=== PATIENT | female | born 1960 ===

== ENCOUNTER 2017-01-06 02:39 | Inpatient (IN) | payer MEDICARE, OTHER ==
[2017-01-06] MEDS ORDERED: Sodium Chloride 0.9% 1,000 ML IV STA ×4 (02:56→08:51)
[2017-01-06 03:29] LABS: BASO # 0.2 K/uL (0.0-0.2); EOS # 0.1 K/uL (0.0-0.7); EOS % 0.9 % (0.0-4.0); HEMOGLOBIN 10.2 g/dL (12.0-16.0); LYMPH # 2.5 K/uL (1.0-4.3); LYMPH % 15.4 % (20.0-40.0); MEAN CELL VOLUME 92.3 fl (81.0-99.0); MEAN CORPUSCULAR HEMOGLOBIN 30.7 pg (27.0-31.0); MEAN CORPUSCULAR HGB CONC 33.3 g/dL (33.0-37.0); MEAN PLATELET VOLUME 10.4 fl (7.2-11.7); MONO # 1.5 K/uL (0.0-0.8); NEUT # 12.2 K/uL (1.8-7.0); NEUT % 73.7 % (50.0-75.0); RBC 3.31 Mil/uL (3.80-5.20); RED CELL DISTRIBUTION WIDTH 14.4 % (11.5-14.5); WHITE BLOOD COUNT 16.6 K/uL (4.8-10.8)
[2017-01-06 03:37] LABS: ALBUMIN 3.9 g/dL (3.5-5.0); CALCIUM 9.3 mg/dL (8.4-10.2)
[2017-01-06 03:45] LABS: INR 1.1 (0.9-1.2); PARTIAL THROMBOPLASTIN TIME 36.5 Seconds (25.6-37.1); PROTHROMBIN TIME 12.4 Seconds (9.8-13.1)
--- NOTE | 2017-01-06 03:47 | ED PDOC ---
Syncope/Near Syncope/Dizziness Time Seen by Provider: 01/06/17 02:46 Chief Complaint (Nursing): Syncope Chief Complaint (Provider): Syncope History Per: Patient History/Exam Limitations: no limitations Onset/Duration Of Symptoms: Mins (MEDIA AID) Current Symptoms Are (Timing): Still Present Number Of Syncopal Episodes: 2 Seizure Or Post-ictal Symptoms: None Additional History Per: Family (Son) Additional Complaint(s): 56 year old female presents to ED with complaints of syncope and has a past medical history of DM, osteolitis, dyslipidemia, CHF, and HTN. Notes that she was found by her son to have "passed out" in their basement laundry room. Son reports that patient was flat, dazed, and confused. Patient states that she does not recall the event. Son notes similar episode x2 days ago and did not seek medical care for that event. (+) weakness, nausea, vomiting, and poor PO intake. (-) abdominal pain, chest pain, cough, or SOB. PCP: ANIBAL Past Medical History Reviewed: Historical Data, Nursing Documentation, Vital Signs Vital Signs: Last Vital Signs Temp 98.5 F 01/06/17 02:53 Pulse 66 01/06/17 02:53 Resp 16 01/06/17 02:53 BP 77/40 L 01/06/17 02:53 Pulse Ox 99 01/06/17 02:53 - Medical History PMH: Anxiety, Asthma, Back Problems, CHF, Depression, Diabetes (type II), GERD, HTN, Hypercholesterolemia Denies: HIV, Chronic Kidney Disease, Seizures, Sexually Transmitted Disease - Surgical History Surgical History: Appendectomy, Cholecystectomy, ( x 3) - Family History Family History: States: No Known Family Hx - Living Arrangements Living Arrangements: With Family - Social History Current smoker - smoking cessation education provided: No Ex-Smoker (has not smoked in the last 12 months): No Alcohol: None Drugs: Denies - Home Medications Home Medications: Ambulatory Orders Medication Instructions Recorded Pravastatin Sodium [Pravachol] 40 mg PO HS 02/25/16 Canagliflozin [Invokana] 300 mg PO DAILY #0 tablet 05/29/16 Glimepiride [Amaryl] 4 mg PO BID #0 tablet 05/29/16 Oxycodone HCl/Acetaminophen 1 tab PO Q6H PRN #0 tablet 05/29/16 [Percocet 10-325 mg Tablet] Zolpidem [Ambien] 10 mg PO HS PRN #0 tab 05/29/16 DULoxetine [Cymbalta] 60 mg PO HS 01/06/17 Insulin Aspart, Recombinant 40 unit SC TID 01/06/17 [Novolog] Insulin Detemir [Levemir] 80 units SC HS 01/06/17 Lisinopril/Hydrochlorothiazide 1 tab PO DAILY 01/06/17 [Lisinopril-Hctz 20-25 mg Tab] Pregabalin [Lyrica] 100 mg PO TID 01/06/17 Sitagliptin Phos/Metformin HCl 1 tab PO BID 01/06/17 [Janumet Xr 50-1,000 mg Tablet] - Allergies Allergies/Adverse Reactions: Allergies Allergy/AdvReac Type Severity Reaction Status Date / Time vancomycin AdvReac ITCHING Verified 05/22/16 13:09 Review of Systems ROS Statement: Except As Marked, All Systems Reviewed And Found Negative Constitutional: Positive for: Weakness Cardiovascular: Negative for: Chest Pain Respiratory: Negative for: Cough, Shortness of Breath Gastrointestinal: Positive for: Nausea, Vomiting, Other (Poor PO intake). Negative for: Abdominal Pain Neurological: Positive for: Dizziness, Other (Syncope) Physical Exam - Reviewed Nursing Documentation Reviewed: Yes Vital Signs Reviewed: Yes - Physical Exam Appears: Positive for: Non-toxic Head Exam: Positive for: NORMOCEPHALIC. Negative for: ATRAUMATIC (abrasion on left forehead) Skin: Positive for: Warm, Dry, Pallor Eye Exam: Positive for: Normal appearance, EOMI, PERRL ENT: Negative for: Normal ENT Inspection (tacky mucous membranes) Cardiovascular/Chest: Positive for: Regular Rate, Rhythm, Other (Hypotensive). Negative for: Murmur Respiratory: Positive for: Normal Breath Sounds. Negative for: Respiratory Distress Gastrointestinal/Abdominal: Positive for: Normal Exam, Soft. Negative for: Tenderness Back: Positive for: Normal Inspection Extremity: Positive for: Normal ROM. Negative for: Deformity Neurologic/Psych: Positive for: Alert, Oriented. Negative for: Motor/Sensory Deficits - Laboratory Results Result Diagrams: 01/06/17 13:00 01/06/17 13:00 - ECG O2 Sat by Pulse Oximetry: 99 (RA) Pulse Ox Interpretation: Normal - Critical Care Total Time (In Min): 60 Medical Decision Making Medical Decision Makin Initial impression: syncopal event in setting of poor PO intake, nausea, vomiting, and diabetes Initial plan: * EKG * Labs * Lact acid * Trop I * UPreg * PTT/PT * NS IV * BCx * Urine Cx * Accucheck * UA 0307 * CT HEAD 0313 * NS IV 0323 * Zofran Inj 4mg IV * Re-eval 0330 * ED OBS All further documentation will take place in ED OBS section of chart. Scribe Attestation: Documented by Jody Osborne acting as a scribe for Won Nina MD. Scribe Attestation: All medical record entries made by the Scribe were at my direction and personally dictated by me. I have reviewed the chart and agree that the record accurately reflects my personal performance of the history, physical exam, medical decision making, and the department course for this patient. I have also personally directed, reviewed, and agree with the discharge instructions and disposition. ED OBSERVATION Date of observation admission: 01/06/17 Time of observation admission: 03:30 - Observation admission statement Patient is being placed in observation because:: Due to further work up and awaiting CT imaging - Goals of Observation Goals of observation are:: CT results - Progress Note Progress Note: 01/06/17 04:30 Patient resting, vitals stable 01/06/17 05:30 Patient resting, vitals stable 01/06/17 06:01 Labs reviewed: no clinically significant abnormalities besides elevated WBC Patient's blood pressure improved after 2.5L IV fluids; however, still no urinary output. Donis catheter ordered. Patient complaining of lower back pain. * CTA A/P to exclude intra-abdominal or renal pathology 01/06/17 07:[address] Patient signed over to Dr. Bhardwaj pending CT imaging. Disposition - Clinical Impression Clinical Impression: Syncope, UTI (urinary tract infection), Dehydration - Patient ED Disposition Is Patient to be Admitted: Transfer of Care - Disposition Disposition: Transfer of Care Disposition Time: 03:30 Condition: FAIR Patient Signed Over To: Jj Bhardwaj (at 0700) Handoff Comments: Pending CT - Pt Status Changed To: Hospital Disposition Of: Observation - POA Present On Arrival: None
[2017-01-06 03:49] LABS: TROPONIN I 0.025 ng/mL (0.00-0.120)
--- NOTE | 2017-01-06 05:08 | CT ---
EXAM: CT Head Without Intravenous Contrast CLINICAL HISTORY: 56 years old, female; Signs and symptoms; Syncope and collapse TECHNIQUE: Axial computed tomography images of the head/brain without intravenous contrast. This CT exam was performed using one or more of the following dose reduction techniques: automated exposure control, adjustment of the mA and/or kV according to patient size, and/or use of iterative reconstruction technique. Coronal and sagittal reformatted images were created and reviewed. COMPARISON: No relevant prior studies available. FINDINGS: Brain: Unremarkable. No hemorrhage. No significant white matter disease. No edema. Ventricles: Unremarkable. No ventriculomegaly. Bones/joints: Unremarkable. No acute fracture. Soft tissues: Unremarkable. Sinuses: Unremarkable as visualized. No acute sinusitis. Mastoid air cells: Unremarkable as visualized. No mastoid effusion. IMPRESSION: Normal head/brain CT.
[2017-01-06] MEDS ORDERED: Iohexol 240 (50 ml) PO ONE (05:48)
[2017-01-06] MEDS ORDERED: Iohexol 240 (50 ml) ONE (06:03)
[2017-01-06 06:35] LABS: SQUAMOUS EPITHIAL 1 /hpf (0-5); URINE BACTERIA OCC (<OCC); URINE BILIRUBIN NEGATIVE (NEGATIVE); URINE BLOOD SMALL (NEGATIVE); URINE CLARITY CLOUDY (Clear); URINE COLOR YELLOW (YELLOW); URINE GLUCOSE (UA) >=500 mg/dL (Normal); URINE LEUKOCYTE ESTERASE LARGE Leu/uL (Negative); URINE NITRATE NEGATIVE (NEGATIVE); URINE PROTEIN 30 mg/dL (NEGATIVE); URINE UROBILINOGEN 0.2-1.0 mg/dL (0.2-1.0); WBC CLUMPS MANY /hpf
[2017-01-06 06:42] LABS: BARBITURATES, UR NEGATIVE (NEGATIVE); BENZODIAZEPINES, UR NEGATIVE (NEGATIVE); OPIATES, UR POSITIVE (NEGATIVE); PHENCYCLIDINE, UR NEGATIVE (NEGATIVE)
[2017-01-06] MEDS ORDERED: cefTRIAXone (Rocephin) 1 gm Inj ONE (06:55)
--- NOTE | 2017-01-06 07:09 | ED PDOC ---
- Laboratory Results Result Diagrams: 01/13/17 07:00 01/13/17 07:00 - ECG O2 Sat by Pulse Oximetry: 97 - Progress ED Course And Treament: Assumed care from Dr Nina. Pending CT abdomen and final disposition. Medical Decision Making Medical Decision Making: Ct abdomen reviewed: no acute findings Disposition Discussed With : Pavel Willoughby Doctor Will See Patient In The: Hospital Counseled Patient/Family Regarding: Studies Performed, Diagnosis - Clinical Impression Clinical Impression: Syncope, UTI (urinary tract infection), Dehydration - POA Present On Arrival: Poor Glycemic Control, Pressure Ulcer (right foot) - Disposition Disposition: Hospitalized as Observation Patient Disposition Time: 10:17 Condition: FAIR
--- NOTE | 2017-01-06 10:20 | CT ---
PROCEDURE: CT Abdomen and Pelvis without IV contrast. HISTORY: back pain COMPARISON: None available TECHNIQUE: Contiguous axial images of the abdomen and pelvis. Oral contrast was administered. No IV contrast given. Coronal and Sagittal reformats generated and reviewed. Radiation dose: Total exam DLP = 1158.89 mGy-cm. This CT exam was performed using one or more of the following dose reduction techniques: Automated exposure control, adjustment of the mA and/or kV according to patient size, and/or use of iterative reconstruction technique. FINDINGS: There is limited evaluation of the solid organs without the administration of IV contrast. LOWER THORAX: No focal consolidation. No pleural effusion. No pneumothorax. Small gastroesophageal reflux. LIVER: Mild nodular hepatic contour. Hepatomegaly. GALLBLADDER AND BILE DUCTS: Cholecystectomy clips. PANCREAS: Unremarkable unenhanced appearance. SPLEEN: Unremarkable unenhanced appearance. ADRENALS: Unremarkable unenhanced appearance. KIDNEYS AND URETERS: No hydronephrosis or obstructing renal calculus. BLADDER: Donis catheter within the urinary bladder. Focus of air within the decompressed urinary bladder may be related to recent instrumentation. REPRODUCTIVE: Uterus is present. APPENDIX: The appendix is not clearly identified. No secondary signs of acute appendicitis. BOWEL: The stomach is nondistended. The bowel loops appear within normal limits of caliber without evidence of intestinal obstruction. Moderate constipation. PERITONEUM: No significant free fluid. No definite free air. LYMPH NODES: Sub cm retroperitoneal and scattered mesenteric lymph nodes, nonspecific. Bilateral sub cm inguinal lymph nodes, nonspecific. No bulky lymphadenopathy identified. VASCULATURE: Atherosclerotic calcifications of the aorta and branches. No aortic aneurysm. BONES: Minimal degenerative changes including small anterior osteophyte formation. No acute fracture evident. OTHER FINDINGS: None. IMPRESSION: Donis catheter within a decompressed urinary bladder which contains air, presumably due to recent instrumentation. Hepatomegaly. Mildly nodular hepatic contour. Correlate clinically for possibility of cirrhosis. Cholecystectomy. Additional incidental findings as above.
--- NOTE | 2017-01-06 10:52 | RAD ---
HISTORY: weakness COMPARISON: 08/08/2016. FINDINGS: LUNGS: The lungs are well inflated and clear. PLEURA: No significant pleural effusion identified, no pneumothorax apparent. CARDIOVASCULAR: Normal. OSSEOUS STRUCTURES: No significant abnormalities. VISUALIZED UPPER ABDOMEN: Normal. OTHER FINDINGS: None. IMPRESSION: No active pulmonary disease.
[2017-01-06] MEDS ORDERED: Piperacillin/Tazobact 3.375 GM in Sodium Chloride 0.9% 100 ML IVPB STA (11:17)
--- NOTE | 2017-01-06 12:07 | CP.PCM.HP ---
<Tabitha Benavides - Last Filed: 01/07/17 06:29> History of Present Illness - History of Present Illness History of Present Illness: Patient seen and examined at bedside with attending 56F p/w being found by her son "passed out" in their basement laundry room. She denies recalling SOB or palpitations prior to the "fall". As per ED records "son reports that patient was flat, dazed, and confused" but patient does not recall event. Again as per ED note "son notes similar episode x2 days ago and did not seek medical care for that event." Patient does reports associated weakness and fatigue, decreased PO intake with N/V. Otherwise she denies SOB, chest pain/palpitations, diarrhea, abdominal pain. Present on Admission - Present on Admission Any Indicators Present on Admission: Yes History of DVT/PE: No History of Uncontrolled Diabetes: Yes Review of Systems - Review of Systems All systems: reviewed and no additional remarkable complaints except - Constitutional Constitutional: Fatigue, Frequent Falls, Lethargy Past Patient History - Infectious Disease Hx of Infectious Diseases: None - Past Medical History & Family History Past Medical History?: Yes - Past Social History Smoking Status: Light Smoker < 10 Cigarettes Daily - CARDIAC Hx Congestive Heart Failure: Yes Hx Hypercholesterolemia: Yes Hx Hypertension: Yes - PULMONARY Hx Asthma: Yes - NEUROLOGICAL Hx Seizures: No - HEENT Hx HEENT Problems: No - RENAL Hx Chronic Kidney Disease: No - ENDOCRINE/METABOLIC Hx Endocrine Disorders: Yes Hx Diabetes Mellitus Type 2: Yes - HEMATOLOGICAL/ONCOLOGICAL Hx Human Immunodeficiency Virus (HIV): No - INTEGUMENTARY Hx Dermatological Problems: No - MUSCULOSKELETAL/RHEUMATOLOGICAL Hx Musculoskeletal Disorders: Yes - GASTROINTESTINAL Hx Gastrointestinal Disorders: No - GENITOURINARY/GYNECOLOGICAL Hx Sexually Transmitted Disorders: No - PSYCHIATRIC Hx Anxiety: Yes Hx Depression: Yes Hx Substance Use: No - SURGICAL HISTORY Hx Appendectomy: Yes Hx Cholecystectomy: Yes - ANESTHESIA Hx Anesthesia: Yes Hx Anesthesia Reactions: No Hx Malignant Hyperthermia: No Meds Allergies/Adverse Reactions: Allergies Allergy/AdvReac Type Severity Reaction Status Date / Time vancomycin AdvReac ITCHING Verified 05/22/16 13:09 Physical Exam - Constitutional Appears: No Acute Distress, Chronically Ill - Head Exam Head Exam: absent: ATRAUMATIC (abrasion over left eye) - Eye Exam Eye Exam: EOMI, PERRL - ENT Exam ENT Exam: Mucous Membranes Moist - Respiratory Exam Respiratory Exam: Clear to Auscultation Bilateral, NORMAL BREATHING PATTERN. absent: Rales, Wheezes - Cardiovascular Exam Cardiovascular Exam: REGULAR RHYTHM. absent: JVD - GI/Abdominal Exam GI & Abdominal Exam: Normal Bowel Sounds, Soft. absent: Tenderness - Extremities Exam Extremities exam: Positive for: normal capillary refill. Negative for: joint swelling, normal inspection (RIGHT plantar/lateral foot wound with foul odor but no gross erythema), pedal pulses present - Neurological Exam Additional comments: Lethargy - Skin Skin Exam: Dry, Warm Results - Vital Signs Recent Vital Signs: Last Vital Signs Temp 36.4 C 01/06/17 08:44 Pulse 63 01/06/17 11:28 Resp 20 01/06/17 11:28 BP 109/50 L 01/06/17 11:28 Pulse Ox 97 01/06/17 11:19 - Labs Result Diagrams: 01/06/17 13:00 01/06/17 13:00 Assessment & Plan (2) Syncope Assessment and Plan: Multiple falls secondary to neurological vs. cardiac vs. infection/dehydration. - Neurology Consult - Carotid Duplex - Fall precautions Status: Acute (3) UTI (urinary tract infection) Assessment and Plan: - Rocephin 1g, IV, Daily - ID Consult - f/u Urine culture Status: Acute (4) DVT prophylaxis Assessment and Plan: Heparin 5,000U, SC, Q8H Status: Acute (5) Foot ulcer, right Assessment and Plan: Chronic, but foul odor and draining. - Podiatry consult Status: Chronic (6) Diabetes Assessment and Plan: Not well-controlled. - Resume home medications except renal excreted - Lantus - Hypoglycemic Bundle - Accu-checks - MOD CHO Status: Chronic (7) Hypertension Assessment and Plan: Chronic, stable - HOLD nephrotoxic medications - monitor for now Status: Chronic (8) Acute on chronic renal failure Assessment and Plan: Likely multifactorial with dehydration, medication. - Nephrology Consult - Restrict nephrotoxic medications - rpt chemistries Status: Acute <Pavel Willoughby - Last Filed: 01/10/17 13:21> Results - Vital Signs Recent Vital Signs: Last Vital Signs Temp 97.8 F 01/10/17 12:00 Pulse 66 01/10/17 12:00 Resp 18 01/10/17 12:00 BP 123/69 01/10/17 12:00 Pulse Ox 99 01/10/17 12:00 - Labs Result Diagrams: 01/07/17 05:30 01/08/17 06:15 Labs: Laboratory Results - last 24 hr 01/09/17 01/09/17 01/10/17 16:23 21:25 05:43 POC Glucose (mg/dL) 126 H 192 H 154 H 01/10/17 10:47 POC Glucose (mg/dL) 198 H Assessment & Plan - Assessment and Plan (Free Text) Plan: I was present during evaluation and discussed with Dr Benavides re plans of care and treatment. Pavel Willoughby M.D.
[2017-01-06] MEDS ORDERED: Glucagon Recombinant 1 mg Inj IM PRN (12:13)
[2017-01-06] MEDS ORDERED: Dextrose 50% SYRINGE Inj (50 ml) IV PRN (12:13)
--- NOTE | 2017-01-06 12:31 | CP.PCM.CON ---
History of Present Illness - History of Present Illness History of Present Illness: 56 y.o female hx of DM, osteolitis, CHF, HTN was seen in the ED following request for podiatry consult and for multiple episodes of syncope and dehydration. Patient appears lethargy at this time, however is arousable to questioning. She says that she was taken to the ED from her son who brought her in following a fall at home. She says she sustained an abrasion to her head from the fall. Podiatry was consulted for right plantar foot wound. Patient has been seeing Dr. Kaur for continued treatment of chronic right plantar foot wound. Per patient, she saw Dr. Kaur last Thursday for wound care: wound was cleansed, Silvercell, and DSD applied. Patient also states that she was recently prescribed antibiotics, however was told by Dr. Kaur to discontinue to taking antibiotics due to diarrhea. Pt reports little pain and hasn't noticed any drainage/pus from wound. Patient admits to nausea, vomitted yesterday, and diarrhea. Pt denies SOB, CP, or F. Review of Systems - Review of Systems Review of Systems: All systems reviewed and found to be negative except HPI Past Patient History - Infectious Disease Hx of Infectious Diseases: None - Past Medical History & Family History Past Medical History?: Yes - Past Social History Smoking Status: Light Smoker < 10 Cigarettes Daily - CARDIAC Hx Congestive Heart Failure: Yes Hx Hypercholesterolemia: Yes Hx Hypertension: Yes - PULMONARY Hx Asthma: Yes - NEUROLOGICAL Hx Seizures: No - HEENT Hx HEENT Problems: No - RENAL Hx Chronic Kidney Disease: No - ENDOCRINE/METABOLIC Hx Endocrine Disorders: Yes Hx Diabetes Mellitus Type 2: Yes - HEMATOLOGICAL/ONCOLOGICAL Hx Human Immunodeficiency Virus (HIV): No - INTEGUMENTARY Hx Dermatological Problems: No - MUSCULOSKELETAL/RHEUMATOLOGICAL Hx Musculoskeletal Disorders: Yes - GASTROINTESTINAL Hx Gastrointestinal Disorders: No - GENITOURINARY/GYNECOLOGICAL Hx Sexually Transmitted Disorders: No - PSYCHIATRIC Hx Anxiety: Yes Hx Depression: Yes Hx Substance Use: No - SURGICAL HISTORY Hx Appendectomy: Yes Hx Cholecystectomy: Yes - ANESTHESIA Hx Anesthesia: Yes Hx Anesthesia Reactions: No Hx Malignant Hyperthermia: No Meds Allergies/Adverse Reactions: Allergies Allergy/AdvReac Type Severity Reaction Status Date / Time vancomycin AdvReac ITCHING Verified 05/22/16 13:09 - Medications Medications: Current Medications Dextrose (Dextrose 50% Inj) 0 ml IV STAT PRN; Protocol PRN Reason: Hyglycemia Protocol Dextrose (Glutose 15) 0 gm PO ONCE PRN; Protocol PRN Reason: Hypoglycemia Protocol Glucagon (Glucagen Diagnostic Kit) 0 mg IM STAT PRN; Protocol PRN Reason: Hypoglycemia Protocol Heparin Sodium (Porcine) (Heparin) 5,000 units SC Q8 MARII PRN Reason: Protocol Physical Exam - Constitutional Appears: Non-toxic, No Acute Distress, Confused - Extremities Exam Additional comments: Vasc: DP 1/4, PT 1/4 bilaterally, [employer] > 3 seconds, no edema noted Ortho: mild pain elicited upon palpation of periwound Neuro: gross sensation intact bilaterally Derm: open wound located at Right foot plantar lateral mid arch, measuring 3.5 x 2.5 x .4. Wound base (90% granular, 10% fibrotic) with intact hyperkeratotic and slight macerated periwound edges. Mild serous drainage and mild malodor. No purulence, no tunneling, no tracking, or no probing to bone noted. Hyperkeratotic lesion with dried sangious material at sub met 2 Left foot noted. There is no fluctuance, no erythema, or no ascending cellulitis to LLE bilaterally. - Neurological Exam Neurological exam: Altered - Psychiatric Exam Psychiatric exam: Normal Affect, Normal Mood Results - Vital Signs Recent Vital Signs: Last Vital Signs Temp 97.6 F 01/06/17 08:44 Pulse 63 01/06/17 11:28 Resp 20 01/06/17 11:28 BP 109/50 L 01/06/17 11:28 Pulse Ox 97 01/06/17 12:07 - Labs Result Diagrams: 01/06/17 13:00 01/06/17 03:24 Assessment & Plan - Assessment and Plan (Free Text) Assessment: 56 y.o Diabetic female with 1) chronic right foot ulceration (non-infected) and left foot sub met 2 callus secondary to diabetic neuropathy; 2) altered mental status 3) possible UTI Plan: - Patient was seen and evaluated. - Discussed plan with Dr. Kaur. Discussed with ED attending Dr. Bhardwaj and primary team - Charts, labs, and vitals were reviewed: afebrile, WBC is 16.6 - Dressing applied with DSD. - For tomorrow, will dress wound with Silver dressing - Will order Right foot X-rays. - Wound culture cancelled (not indicated at this time per Dr. Kaur) -Pt to be admitted for obsv -Podiatry will continue to follow while she remains inhouse.
[2017-01-06] MEDS ORDERED: Piperacillin/Tazobact 3.375 gm Inj IVPB ONE (12:49)
[2017-01-06 13:37] LABS: HEMOGLOBIN 9.6 g/dL (12.0-16.0); MEAN CELL VOLUME 94.1 fl (81.0-99.0); MEAN CORPUSCULAR HEMOGLOBIN 29.5 pg (27.0-31.0); MEAN CORPUSCULAR HGB CONC 31.3 g/dL (33.0-37.0); MEAN PLATELET VOLUME 10.2 fl (7.2-11.7); RBC 3.25 Mil/uL (3.80-5.20); RED CELL DISTRIBUTION WIDTH 15.3 % (11.5-14.5); WHITE BLOOD COUNT 11.4 K/uL (4.8-10.8)
[2017-01-06 13:38] LABS: ALB/GLOB RATIO 0.9 (1.0-2.1); ALBUMIN 3.3 g/dL (3.5-5.0); ALT/SGPT 43 U/L (9-52); AST/SGOT 24 U/L (14-36); BLOOD UREA NITROGEN 60 mg/dl (7-17); CALCIUM 8.3 mg/dL (8.4-10.2); GFR AFRICAN-AMERICAN 29; GFR NON-AFRICAN AMERICAN 24
--- NOTE | 2017-01-06 15:37 | US ---
PROCEDURE: Duplex ultrasound of the carotid and vertebral arteries. HISTORY: syncope COMPARISON: None available. TECHNIQUE: Grayscale and duplex Doppler evaluation of the cervical carotid and vertebral arteries were performed. The common carotid, carotid bifurcations and cervical ICA and proximal ECA were evaluated. The vertebral arteries were evaluated for gross patency and direction. FINDINGS: There are extensive calcified atherosclerotic plaques in the common carotid, external and internal carotid arteries. RIGHT CAROTID ARTERIES: Common Carotid Artery: Normal. Maximal flow velocity of 8.3 cm/s. Carotid Bifurcation: Normal. Internal Carotid Artery:Markedly increased peak systolic velocity. Maximal flow velocity of 217.6 cm/s. External Carotid Artery (proximal branches): Moderate increased velocity. Maximal flow velocity of 158.6 cm/s. ICA/CCA Ratio: Increased and measures 2.8 LEFT CAROTID ARTERIES: Common Carotid Artery: Normal. Maximal flow velocity of 77.5 cm/s. Carotid Bifurcation: Normal. Internal Carotid Artery:Markedly increased peak systolic velocity. Maximal flow velocity of 249.4 cm/s. External Carotid Artery (proximal branches): Moderate increased peak systolic velocity. Maximal flow velocity of 174.7 cm/s. ICA/CCA Ratio: Increased and measures 3.2 VERTEBRAL ARTERIES: Right Vertebral Artery: Patent. Antegrade flow. Left Vertebral Artery: Patent. Antegrade flow. OTHER FINDINGS: None. IMPRESSION: Hemodynamically significant stenosis in both internal carotid arteries, severe on right and critical on left. Patent vertebral arteries with antegrade flow.
[2017-01-06] MEDS ORDERED: Piperacillin/Tazobact 3.375 GM in Sodium Chloride 0.9% 100 ML IVPB SCH (16:00)
--- NOTE | 2017-01-06 17:34 | CARD ---
APPROVED REPORT EKG Measurement Heart [id number] <Conclusion> Normal sinus rhythm Cannot rule out Anterior infarct, age undetermined Abnormal ECG
--- NOTE | 2017-01-06 21:44 | CON ---
DATE: 01/06/2017 HISTORY OF PRESENT ILLNESS: The patient is a 56-year-old female with history of diabetes, osteomyelitis, congestive heart failure and HTN, who was admitted via the ER. The patient has a long history of diabetic peripheral vascular disease and came to the ER for multiple episodes of syncope and dehydration. She was lethargic when she came to the ER. Brought to the ER by her family after having a fall at home. Also had an abrasion on her head. The patient is being followed by Dr. Kaur for right plantar foot wound and treatment of chronic diabetic foot infections and is being seen in wound care. There has not been any drainage or pus from the wound. The patient is being seen in ID consult because of the diabetic foot disease and also for possible UTI. The patient has a past history as noted above and also of CHF, hypercholesterolemia , hypertension, asthma and diabetes mellitus. She has been treated for also osteomyelitis in the past. ALLERGIES: The patient also is ALLERGIC TO VANCOMYCIN. CT scan of abdomen and pelvis shows a Donis catheter with decompressed urinary bladder which contains air, presumably due to recent instrumentation, hepatomegaly and cholecystectomy. Micro, nothing is pending. She is noted to have in the past cultures of the foot Enterobacter cloacae and corynebacterium and also Enterococcus faecalis. Her creatinine is 2.7 and 2.1. Her GFR was 18 and 24. Lactic acid was 1.4, alkaline phosphatase is elevated at 234, possibly from bone destruction. Urine shows bacteria, hyaline casts and many WBC clumps. PHYSICAL EXAMINATION: GENERAL: She is alert and cooperative. HEENT: Essentially within normal limits except for an abrasion on her left forehead from a fall. HEART: Regular sinus rhythm. LUNGS: Decreased breath sounds. ABDOMEN: Soft with positive bowel sounds. EXTREMITIES: Open wound located at the plantar area of the right foot. Wound base is granular 90%, as per podiatry note, and there are slightly macerated periwound edges. There is minimal serous drainage. DIAGNOSES: At the present time are near syncopal episode, diabetes, hypertension , diabetic neuropathy with diabetic related infection of the lower extremities, possible urinary tract infection. PLAN: Continue with Zosyn in an adjusted dose and also giving ceftriaxone 1 gram q. 24. Will await cultures prior to making any further decision for antibiotic treatment. Chiki Verde MD cc: [id number] TT: 01/06/2017 21:43:24 Confirmation # [id number] Dictation # [id number] MTDD
[2017-01-06] MEDS ORDERED: Insulin Detemir 100 Units/ml Inj SC SCH (22:00)
[2017-01-07] MEDS: Pravastatin Sodium 40 MG TAB PO SCH ×2 (00:42→21:22)
[2017-01-07] MEDS ORDERED: Patient's Own Med (Oxycodone Hcl/Acetaminophen [Percocet 10-325 Mg Tablet] 1 TAB) PO PRN (00:55)
[2017-01-07] MEDS ORDERED: Oxycodone/Acetaminophen 5/325 mg Tab PO PRN (01:48)
[2017-01-07] MEDS: Insulin Lispro (humaLOG) 100 Units/ml Inj SC SCH ×5 (06:37→21:35)
[2017-01-07 07:20] LABS: BASO % 0.5 % (0.0-2.0); EOS # 0.1 K/uL (0.0-0.7); EOS % 1.2 % (0.0-4.0); HEMOGLOBIN 9.8 g/dL (12.0-16.0); LYMPH # 1.4 K/uL (1.0-4.3); LYMPH % 16.3 % (20.0-40.0); MEAN CELL VOLUME 92.5 fl (81.0-99.0); MEAN CORPUSCULAR HEMOGLOBIN 30.8 pg (27.0-31.0); MEAN CORPUSCULAR HGB CONC 33.3 g/dL (33.0-37.0); MEAN PLATELET VOLUME 10.5 fl (7.2-11.7); MONO # 0.7 K/uL (0.0-0.8); MONO % 8.8 % (0.0-10.0); NEUT # 6.1 K/uL (1.8-7.0); NEUT % 73.2 % (50.0-75.0); NRBC % 0.1 % (0.0-0.0); RBC 3.2 Mil/uL (3.80-5.20); RED CELL DISTRIBUTION WIDTH 14.7 % (11.5-14.5); WHITE BLOOD COUNT 8.3 K/uL (4.8-10.8)
[2017-01-07 07:37] LABS: ALB/GLOB RATIO 0.8 (1.0-2.1); ALBUMIN 3.3 g/dL (3.5-5.0); CALCIUM 8.5 mg/dL (8.4-10.2)
--- NOTE | 2017-01-07 07:46 | CP.PCM.PN ---
Subjective - Date & Time of Evaluation Date of Evaluation: 01/07/17 Time of Evaluation: 08:15 - Subjective Subjective: 56 y.o female hx of DM, osteomyelitis, CHF, HTN was seen and evaluated at bedside with attending Dr. Kaur for chronic right plantar foot wound and left foot sub 2 callus. She is seen comfortably at bedside. She is more aroused and talkative today. Patient states that she is in some pain to the right foot today. She denies n/v/sob/cp/chills or f. She denies any pedal complaints other time. Objective - Vital Signs/Intake and Output Vital Signs (last 24 hours): Temp Pulse Resp BP Pulse Ox 100.1 F H 73 18 107/56 L 98 01/07/17 05:00 01/07/17 05:00 01/07/17 05:00 01/07/17 05:00 01/07/17 05:00 - Medications Medications: Current Medications Dextrose (Dextrose 50% Inj) 0 ml IV STAT PRN; Protocol PRN Reason: Hyglycemia Protocol Dextrose (Glutose 15) 0 gm PO ONCE PRN; Protocol PRN Reason: Hypoglycemia Protocol Duloxetine HCl (Cymbalta) 60 mg PO HS [facility] Last Admin: 01/07/17 00:42 Dose: 60 mg Glipizide (Glucotrol Xl) 10 mg PO BID [facility] Glucagon (Glucagen Diagnostic Kit) 0 mg IM STAT PRN; Protocol PRN Reason: Hypoglycemia Protocol Heparin Sodium (Porcine) (Heparin) 5,000 units SC Q8 [facility] PRN Reason: Protocol Last Admin: 01/07/17 01:59 Dose: 5,000 units Home Med (Canagliflozin [Invokana]) 300 mg PO DAILY [facility] Hydrochlorothiazide (Hydrodiuril) 25 mg PO DAILY [facility] Ceftriaxone Sodium 1 gm/ (Sodium Chloride) 100 mls @ 100 mls/hr IVPB DAILY [facility] Insulin Detemir (Levemir) 80 units SC HS [facility] Insulin Human Lispro (Humalog) 0 units SC ACHS [facility] PRN Reason: Protocol Last Admin: 01/07/17 06:37 Dose: 2 units Lisinopril (Zestril) 20 mg PO DAILY [facility] Metformin HCl (Glucophage) 1,000 mg PO BID [facility] Oxycodone/Acetaminophen (Percocet 5/325 Mg Tab) 1 tab PO Q6 PRN PRN Reason: Pain, severe (8-10) Stop: 01/10/17 01:49 Last Admin: 01/07/17 01:58 Dose: 1 tab Pravastatin Sodium (Pravachol) 40 mg PO HS [facility] Last Admin: 01/07/17 00:42 Dose: 40 mg Pregabalin (Lyrica) 100 mg PO TID [facility] Sitagliptin Phosphate (Januvia) 25 mg PO DAILY [facility] Zolpidem Tartrate (Ambien) 5 mg PO HS PRN PRN Reason: Insomnia - Labs Labs: 01/06/17 13:00 01/07/17 05:30 PT 12.4 Seconds (9.8-13.1) 01/06/17 03:24 INR 1.1 (0.9-1.2) 01/06/17 03:24 APTT 36.5 Seconds (25.6-37.1) 01/06/17 03:24 - Constitutional Appears: Well, Non-toxic, No Acute Distress - Extremities Exam Additional comments: Vasc: DP 1/4, PT 1/4 bilaterally, LEASE ATTENDANT > 3 seconds, no edema noted bilaterally, temperature gradient is WNL, no peripheral edema noted bilaterally Ortho: mild pain elicited upon palpation of periwound, no pain elicited upon palpation of the left plantar sub met 2 callus Neuro: gross sensation intact bilaterally Derm: Right foot open plantar wound measures 3.5 x 2.5 x .4. Wound base is 90% granular and 10% fibrotic. The wound border is a mixture of hyperkeratotic and maceration but intact. Wound exhibit no clinical signs of infection: no purulence, no tunneling, no tracking, no fluctuance, no PTB, no erythema. There is mild drainage of serous noted. There is no cellulitis noted. - Neurological Exam Neurological Exam: Alert, Awake, Oriented x3 - Psychiatric Exam Psychiatric exam: Normal Affect, Normal Mood Assessment and Plan - Assessment and Plan (Free Text) Assessment: 56 y.o Diabetic female with 1) chronic right foot ulceration (non-infected) and left foot sub met 2 callus secondary to diabetic neuropathy; 2) UTI Plan: - Patient was seen and evaluated with attending Dr. Kaur present - Charts, labs, and vitals were reviewed: afebrile, WBC is 8.3 today - Dressing applied with xeroform, ABD, and kerlix. - Will order silver dressing to be applied tomorrow - Continue to monitor left sub met 2 callus. - PWB to right foot - Still pending Right foot X-rays. - Podiatry will continue to follow while she remains inhouse
[2017-01-07] MEDS ORDERED: GlipiZIDE 10 mg SR Tab PO SCH (09:00)
[2017-01-07] MEDS ORDERED: Insulin Lispro (humaLOG) 100 Units/ml Inj SC SCH (09:00)
--- NOTE | 2017-01-07 09:47 | CP.PCM.PN ---
Subjective - Date & Time of Evaluation Date of Evaluation: 01/07/17 Time of Evaluation: 09:45 - Subjective Subjective: This patient who is 56 years old I was called to see her for abnormal kidney function. Patient was admitted because she passed out apparently and brought to the emergency room for further evaluation. Patient has history of chronic kidney disease she has been seen in the past in my office for abnormal kidney function. is diabetic hypertensive hyperlipidemia also she has a right foot ulcer she has been follow-up by podiatry as well. Objective - Vital Signs/Intake and Output Vital Signs (last 24 hours): Temp Pulse Resp BP Pulse Ox 98.8 F 66 18 112/64 97 01/07/17 07:56 01/07/17 07:56 01/07/17 07:56 01/07/17 07:56 01/07/17 07:56 Intake and Output: 01/07/17 01/07/17 06:59 18:59 Intake Total 600 Output Total 4800 Balance -4200 - Medications Medications: Current Medications Dextrose (Dextrose 50% Inj) 0 ml IV STAT PRN; Protocol PRN Reason: Hyglycemia Protocol Dextrose (Glutose 15) 0 gm PO ONCE PRN; Protocol PRN Reason: Hypoglycemia Protocol Duloxetine HCl (Cymbalta) 60 mg PO HS [facility] Last Admin: 01/07/17 00:42 Dose: 60 mg Glipizide (Glucotrol Xl) 10 mg PO BID [facility] Glucagon (Glucagen Diagnostic Kit) 0 mg IM STAT PRN; Protocol PRN Reason: Hypoglycemia Protocol Heparin Sodium (Porcine) (Heparin) 5,000 units SC Q8 [facility] PRN Reason: Protocol Last Admin: 01/07/17 09:20 Dose: 5,000 units Home Med (Canagliflozin [Invokana]) 300 mg PO DAILY [facility] Hydrochlorothiazide (Hydrodiuril) 25 mg PO DAILY [facility] Ceftriaxone Sodium 1 gm/ (Sodium Chloride) 100 mls @ 100 mls/hr IVPB DAILY [facility] Last Admin: 01/07/17 09:20 Dose: 100 mls/hr Insulin Detemir (Levemir) 80 units SC HS [facility] Insulin Human Lispro (Humalog) 0 units SC ACHS [facility] PRN Reason: Protocol Last Admin: 01/07/17 06:37 Dose: 2 units Lisinopril (Zestril) 20 mg PO DAILY [facility] Metformin HCl (Glucophage) 1,000 mg PO BID [facility] Oxycodone/Acetaminophen (Percocet 5/325 Mg Tab) 1 tab PO Q6 PRN PRN Reason: Pain, severe (8-10) Stop: 01/10/17 01:49 Last Admin: 01/07/17 01:58 Dose: 1 tab Pravastatin Sodium (Pravachol) 40 mg PO HS [facility] Last Admin: 01/07/17 00:42 Dose: 40 mg Pregabalin (Lyrica) 100 mg PO TID [facility] Last Admin: 01/07/17 09:24 Dose: 100 mg Sitagliptin Phosphate (Januvia) 25 mg PO DAILY [facility] Zolpidem Tartrate (Ambien) 5 mg PO HS PRN PRN Reason: Insomnia - Labs Labs: 01/07/17 05:30 01/07/17 05:30 PT 12.4 Seconds (9.8-13.1) 01/06/17 03:24 INR 1.1 (0.9-1.2) 01/06/17 03:24 APTT 36.5 Seconds (25.6-37.1) 01/06/17 03:24 - Constitutional Appears: No Acute Distress - ENT Exam ENT Exam: Mucous Membranes Moist - Respiratory Exam Respiratory Exam: absent: Chest Wall Tenderness - Cardiovascular Exam Cardiovascular Exam: REGULAR RHYTHM. absent: Rubs - Extremities Exam Extremities Exam: absent: Calf Tenderness - Back Exam Back Exam: absent: CVA tenderness (L), CVA tenderness (R) - Neurological Exam Neurological Exam: Alert Assessment and Plan (1) Acute on chronic renal failure Assessment & Plan: Patient appears to have acute kidney injury superimposed on chronic kidney disease perhaps. Serum creatinine improving kidney function improving Most likely related to dehydration. Continue monitoring Status: Acute
--- NOTE | 2017-01-07 13:56 | PQF GENQUE ---
Dr. Willoughby, Please clarify the stage of the chronic kidney disease: Stage 1 Stage 2 (mild) Stage 3 (moderate) Stage 4 (severe) Stage 5 Other (please specify) Unable to determine Unknown H and P: Acute on chronic renal failure Assessment and Plan: Likely multifactorial with dehydration, medication. - Nephrology Consult - Restrict nephrotoxic medications - rpt chemistries Renal note: Patient appears to have Acute Kidney Injury superimposed on Chronic Kidney Disease perhaps: most likely related to dehydration Est GFR: (Af Amer/Non-Af Amer): ->->51/42 IVF's This form is a permanent part of the medical record Clarification of your documentation is requested to better reflect the severity of illness and intensity of treatment of your patient. Indicators present [] Specify: [] [] Specify: [] [] Specify: [] [] Specify: [] Location in the medical record that reflects the above clinical findings: [] Treatment Provided: [] PHYSICIAN'S RESPONSE Based on your medical judgment of the clinical indicators outlined above please clarify the following: [] Practitioner response [] If unable to determine, please check the box, sign and date. Present On Admission (POA) Indicator: [] Present at the time of admission [] Not present at the time of admission [] Clinically Undetermined In responding to this query, please exercise your independent professional judgment. The fact that a question is asked does not imply that any particular answer is desired or expected. Thank you for your clarification on this documentation. If you have any questions please call. * Thank you, Sherry Betts RN BSN ext. #[phone] MTDD
--- NOTE | 2017-01-07 14:33 | CON ---
DATE: 01/07/2017 CHIEF COMPLAINT: History of falls. HISTORY OF PRESENT ILLNESS: This is a 56-year-old woman with history of type 2 diabetes mellitus, un controlled; is a smoker, smoking less than 10 cigarettes per day; hypertension, asthma; history of de pression/anxiety, on Cymbalta; history of hypercholesterolemia, hypertension, CHF, [facility] apparently, according to son, had passed out at the basement in the laundry room. The patient denied any confusional episodes or any palpitations prior to the event. She has generalized weakness, fatigue, and has been drinking and eating very less and has been having some nausea and oc casional vomiting. No diarrhea, no abdominal pain. Her CT head showed no acute intracranial abnorma lity. No seizure-like episodes in the past. She had a carotid Doppler which showed hemodynamic sten osis in both internal carotid arteries, severe on the right and critical on the left. She is an acti ve smoker. She is not on any antiplatelet medications. She does have evidence of diabetic periphera l neuropathy on examination and is currently in acute on chronic renal failure likely secondary to de hydration. She is moving all extremities and following commands. PAST MEDICAL HISTORY: CHF, hypertension; diabetes, uncontrolled; chronic kidney disease, dyslipidemi a, asthma, CHF. Also has a past medical history of depression and anxiety. FAMILY HISTORY: Noncontributory. ALLERGIES: ALLERGIC TO VANCOMYCIN. REVIEW OF SYSTEMS: A 14-point review of systems is negative except per the HPI. SOCIAL HISTORY: She smokes less than 10 cigarettes per day, occasional ETOH use. No illicit drug us e. FAMILY HISTORY: Noncontributory. PHYSICAL EXAMINATION: VITAL SIGNS: Temperature afebrile, pulse rate 60, blood pressure 109/50, respiratory rate of 20, oxy gen saturation 97% via room air. GENERAL: The patient is sitting up in bed in no acute distress. HEENT: Atraumatic, normocephalic. PERRLA. Extraocular muscles are intact. NECK: Supple, no JVD, no adenopathy noted. LUNGS: Clear to auscultation. No adventitious sounds. HEART: S1, S2, normal rate and rhythm. No murmurs, rubs, or gallops. ABDOMEN: Soft, nontender, nondistended. Bowel sounds present. EXTREMITIES: No clubbing, no cyanosis. Peripheral pulses 2+ felt bilaterally. Right foot is olson ged up due to plantar lateral foot ulcer. NEUROLOGIC: The patient is alert, oriented to person, place, month and year. Speech is fluent witho ut any errors. Cranial nerves II-XII are intact. MOTOR: Moves all extremities equally. Tone is normal. SENSORY: Decreased light touch and pinprick up to the calves bilaterally. Decreased vibration of th e toes and knees. COORDINATION: [id number] is intact. GAIT: Deferred for now. LABORATORIES: Sodium is 134, potassium 5, chloride 104, carbon dioxide 21, BUN of 40, creatinine 1.3 . Random glucose 168. ASSESSMENT AND PLAN: This is a 56-year-old woman with history of congestive heart failure, hypertens ion, dyslipidemia, history of asthma, history of uncontrolled diabetes, is a positive smoker, who had had a syncopal episode and was found to be dehydrated and acute on chronic kidney injury. Carotid D oppler showed hemodynamic stenosis both in the internal carotids, severe on the right and critical on the left. She is not on any antiplatelet drugs. She was also dehydrated and had transient drop in her systolic and diastolic blood pressures. Overall, her syncopal event is likely multifactorial rel ated secondary to a vasovagal event from underlying acute on chronic kidney injury from dehydration i n addition to transient cerebral hypoperfusion to the brain from low systolic and diastolic blood pre ssures and carotid artery disease which is evident on carotid Doppler. At this time, her repeated fa lls and poor balance is secondary to diabetic peripheral neuropathy of uncontrolled diabetes. At thi s time, recommend: 1. A vascular consult for carotid artery occlusion disease, and since the patient has acute and communicable disease specialist deb kidney injury cannot get a CT angio with contrast due to her elevated BUN and creatinine so, ther efore, do an MRA of the neck to assess for further degree of carotid stenosis. 2. Get a vascular consult about carotid stenosis. 3. Recommend aspirin 81, Plavix 75 mg and a statin of 40 mg (such as atorvastatin) for stroke preven tion and carotid artery disease. 4. Continue with Cymbalta for neuropathic pain, depression and anxiety of 60 mg. 5. Continue with Lyrica 100 mg p.o. t.i.d. for neuropathic pain relief for underlying diabetic perip heral neuropathy. 6. Will probably need physical therapy evaluation for gait imbalance, probably some subacute rehab. 7. Continue with hydration given that she was dehydrated and poor p.o. intake, and continue with buck patel present medical management. Thank you for this consult. Follow up with vascular's recommendations. Continue with conservative m edical management at this point with aspirin, Plavix and statin for carotid artery disease. Layo Bella MD cc: [id number] TT: 01/07/2017 14:33:17 Confirmation # [id number] Dictation # [id number]
--- NOTE | 2017-01-07 15:29 | CP.PCM.CON ---
<Jenny Mckeon - Last Filed: 01/07/17 16:56> History of Present Illness - History of Present Illness History of Present Illness: Vascular surgery progress note for Dr. Kelly Consulted for: carotid artery stenosis Patient is a 56 year old female with PMH of DM type 2, Asthma, and anxiety with PSH of appendectomy and cholecystectomy who presented to the ER 2 days ago after being found down by son. Patien does not remember any of the time surrounding the LOC and was confused afterwards. Patient also reports a previous episode of "passing out" 2 days earlier when she lost consciousness and hit her head on the freezer. She felt fine afterward and did not seek medical treatment. Patient denies any vertigo, light headedness, palpitations, tachycardia, chest pain, SOB, focal weakness, slurring of speech, vision changes , fevers, chills, nausea, vomiting. Patient does report some poor appetite and poor PO intake. Patient underwent a carotid ultrasound which showed critical stenosis of the L ICA and severe stenosis of the R ICA. MRA of the neck is pending. PMH: DM type 2, anxiety PSH: appendectomy, cholecystectomy All: Vancomycin FMH: Father: stomach cancer. No family history of heart disease, CVA, or carotid artery stenosis. Social: Lives with son. Tobacco: 1ppd for >30 years. ETOH: occasional, denies illicit drugs Review of Systems - Review of Systems All systems: reviewed and no additional remarkable complaints except (as per HPI ) - Constitutional Constitutional: Fatigue. absent: Chills, Fever, Weakness - EENT Eyes: absent: Change in Vision, Loss of Vision - Cardiovascular Cardiovascular: absent: Chest Pain at Rest, Lightheadedness, Palpitations - Respiratory Respiratory: absent: Cough, Dyspnea, Wheezing - Gastrointestinal Gastrointestinal: absent: Abdominal Pain, Hematochezia, Melena, Nausea, Vomiting - Genitourinary Genitourinary: absent: Difficulty Urinating, Dysuria, Flank Pain, Hematuria - Musculoskeletal Musculoskeletal: Numbness (chronic feet BL), Tingling (hands, BL ). absent: Back Pain - Integumentary Integumentary: Non-Healing Lesions (lower extremities BL) - Neurological Neurological: Headaches (ocassional L sided headaches, no aura or photophobia). absent: Focal Weakness, Lack of Coordination, Loss of Vision, Memory Loss - Psychiatric Psychiatric: Anxiety - Endocrine Endocrine: Fatigue. absent: Palpitations Past Patient History - Infectious Disease Hx of Infectious Diseases: None - Past Medical History & Family History Past Medical History?: Yes Past Family History: Reviewed and not pertinent - Past Social History Smoking Status: Heavy Smoker > 10 Cigarettes Daily Alcohol: Occasional Drugs: Denies Home Situation {Lives}: With Family - CARDIAC Hx Congestive Heart Failure: Yes Hx Hypercholesterolemia: Yes Hx Hypertension: Yes - NEUROLOGICAL Hx Seizures: No - HEENT Hx HEENT Problems: No - RENAL Hx Chronic Kidney Disease: No - ENDOCRINE/METABOLIC Hx Endocrine Disorders: Yes Hx Diabetes Mellitus Type 2: Yes - HEMATOLOGICAL/ONCOLOGICAL Hx Human Immunodeficiency Virus (HIV): No - INTEGUMENTARY Hx Dermatological Problems: No - MUSCULOSKELETAL/RHEUMATOLOGICAL Hx Musculoskeletal Disorders: Yes - GASTROINTESTINAL Hx Gastrointestinal Disorders: No - GENITOURINARY/GYNECOLOGICAL Hx Sexually Transmitted Disorders: No - PSYCHIATRIC Hx Anxiety: Yes Hx Depression: Yes Hx Substance Use: No - SURGICAL HISTORY Hx Appendectomy: Yes Hx Cholecystectomy: Yes - ANESTHESIA Hx Anesthesia: Yes Hx Anesthesia Reactions: No Hx Malignant Hyperthermia: No Meds Allergies/Adverse Reactions: Allergies Allergy/AdvReac Type Severity Reaction Status Date / Time vancomycin AdvReac ITCHING Verified 05/22/16 13:09 - Medications Medications: Current Medications Dextrose (Dextrose 50% Inj) 0 ml IV STAT PRN; Protocol PRN Reason: Hyglycemia Protocol Dextrose (Glutose 15) 0 gm PO ONCE PRN; Protocol PRN Reason: Hypoglycemia Protocol Duloxetine HCl (Cymbalta) 60 mg PO HS [facility] Last Admin: 01/07/17 00:42 Dose: 60 mg Glucagon (Glucagen Diagnostic Kit) 0 mg IM STAT PRN; Protocol PRN Reason: Hypoglycemia Protocol Heparin Sodium (Porcine) (Heparin) 5,000 units SC Q8 [facility] PRN Reason: Protocol Last Admin: 01/07/17 09:20 Dose: 5,000 units Hydrochlorothiazide (Hydrodiuril) 25 mg PO DAILY [facility] Ceftriaxone Sodium 1 gm/ (Sodium Chloride) 100 mls @ 100 mls/hr IVPB DAILY [facility] Last Admin: 01/07/17 09:20 Dose: 100 mls/hr Insulin Detemir (Levemir) 30 units SC HS [facility] Insulin Human Lispro (Humalog) 12 units SC AC [facility] Insulin Human Lispro (Humalog) 0 units SC ACHS [facility] PRN Reason: Protocol Lisinopril (Zestril) 20 mg PO DAILY [facility] Oxycodone/Acetaminophen (Percocet 5/325 Mg Tab) 1 tab PO Q6 PRN PRN Reason: Pain, severe (8-10) Stop: 01/10/17 01:49 Last Admin: 01/07/17 01:58 Dose: 1 tab Pravastatin Sodium (Pravachol) 40 mg PO HS [facility] Last Admin: 01/07/17 00:42 Dose: 40 mg Pregabalin (Lyrica) 100 mg PO TID [facility] Last Admin: 01/07/17 12:59 Dose: 100 mg Zolpidem Tartrate (Ambien) 5 mg PO HS PRN PRN Reason: Insomnia Physical Exam - Constitutional Appears: Well, Non-toxic, No Acute Distress - Head Exam Head Exam: ATRAUMATIC, NORMOCEPHALIC - Eye Exam Eye Exam: EOMI, Normal appearance, PERRL. absent: Conjunctival injection, Scleral icterus Pupil Exam: NORMAL ACCOMODATION - ENT Exam ENT Exam: Mucous Membranes Moist, Normal Oropharynx - Respiratory Exam Respiratory Exam: Clear to Auscultation Bilateral, NORMAL BREATHING PATTERN. absent: Accessory Muscle Use, Respiratory Distress - Cardiovascular Exam Cardiovascular Exam: RRR, +S1, +S2. absent: Diastolic murmur, Systolic Murmur Additional comments: No carotid bruit BL - GI/Abdominal Exam GI & Abdominal Exam: Soft. absent: Distended, Tenderness - Extremities Exam Extremities exam: Negative for: calf tenderness, pedal edema Additional comments: Legs with dressing c/d/i - Neurological Exam Neurological exam: Alert, CN II-XII Intact, Oriented x3 Additional comments: Motor sensory intact - Psychiatric Exam Psychiatric exam: Normal Affect, Normal Mood - Skin Skin Exam: Dry, Normal Color, Warm Results - Vital Signs Recent Vital Signs: Last Vital Signs Temp 98.2 F 01/07/17 12:31 Pulse 67 01/07/17 12:31 Resp 18 01/07/17 12:31 BP 112/51 L 01/07/17 12:31 Pulse Ox 97 01/07/17 12:31 - Labs Result Diagrams: 01/07/17 05:30 01/07/17 05:30 Labs: Laboratory Results - last 24 hr 01/07/17 01/07/17 01/07/17 05:26 05:30 05:30 WBC 8.3 RBC 3.20 L Hgb 9.8 L Hct 29.6 L MCV 92.5 MCH 30.8 MCHC 33.3 RDW 14.7 H Plt Count 175 MPV 10.5 Neut % (Auto) 73.2 Lymph % (Auto) 16.3 L [place] % (Auto) 8.8 Eos % (Auto) 1.2 Baso % (Auto) 0.5 Neut # 6.1 Lymph # 1.4 [place] # 0.7 Eos # 0.1 Baso # 0.0 Sodium 134 Potassium 5.0 Chloride 104 Carbon Dioxide 21 L Anion Gap 14 BUN 40 H Creatinine 1.3 H Est GFR ( Amer) 51 Est GFR (Non-Af Amer) 42 POC Glucose (mg/dL) 173 H Random Glucose 168 H Calcium 8.5 Total Bilirubin 0.3 AST 34 ALT 45 Alkaline Phosphatase 330 H D Total Protein 7.1 Albumin 3.3 L Globulin 3.9 Albumin/Globulin Ratio 0.8 L 01/07/17 11:40 WBC RBC Hgb Hct MCV MCH MCHC RDW Plt Count MPV Neut % (Auto) Lymph % (Auto) [place] % (Auto) Eos % (Auto) Baso % (Auto) Neut # Lymph # [place] # Eos # Baso # Sodium Potassium Chloride Carbon Dioxide Anion Gap BUN Creatinine Est GFR ( Amer) Est GFR (Non-Af Amer) POC Glucose (mg/dL) 322 H Random Glucose Calcium Total Bilirubin AST ALT Alkaline Phosphatase Total Protein Albumin Globulin Albumin/Globulin Ratio - Imaging and Cardiology CT scan - abdomen Status: Image reviewed by me, Report reviewed by me Assessment & Plan - Assessment and Plan (Free Text) Assessment: 56 year old female with PMH of DM type 2 and prolonged smoking history presented to the ED with 2 episodes of LOC without observed seizure or sign of stroke. CT of the head did not show any acute intracranial pathology. Carotid ultrasound shows severe BL Internal carotid artery stenosis, with L>R. Patient also has evidence of a UTI on UA for which she is receiving antibiotics Plan: -MRA of the neck to further evaluate carotids--further surgical planning pending results -Serial exams -Continue management per the medical team -Continue antibiotics for UTI, continue DVT prophylaxis -Physical therapy for assessment and treatment -Continue care of leg wounds per podaitry Discussed with Dr. Robin Mckeon, PGY1 <Collin Kelly - Last Filed: 01/08/17 12:26> Meds - Medications Medications: Current Medications Dextrose (Dextrose 50% Inj) 0 ml IV STAT PRN; Protocol PRN Reason: Hyglycemia Protocol Dextrose (Glutose 15) 0 gm PO ONCE PRN; Protocol PRN Reason: Hypoglycemia Protocol Duloxetine HCl (Cymbalta) 60 mg PO HS [facility] Last Admin: 01/07/17 21:22 Dose: 60 mg Glucagon (Glucagen Diagnostic Kit) 0 mg IM STAT PRN; Protocol PRN Reason: Hypoglycemia Protocol Heparin Sodium (Porcine) (Heparin) 5,000 units SC Q8 [facility] PRN Reason: Protocol Last Admin: 01/08/17 08:59 Dose: 5,000 units Hydrochlorothiazide (Hydrodiuril) 25 mg PO DAILY [facility] Ceftriaxone Sodium 1 gm/ (Sodium Chloride) 100 mls @ 100 mls/hr IVPB DAILY [facility] Last Admin: 01/08/17 09:00 Dose: 100 mls/hr Insulin Detemir (Levemir) 30 units SC HS [facility] Last Admin: 01/07/17 22:00 Dose: Not Given Insulin Human Lispro (Humalog) 12 units SC AC [facility] Last Admin: 01/08/17 08:59 Dose: 126 u Insulin Human Lispro (Humalog) 0 units SC ACHS [facility] PRN Reason: Protocol Last Admin: 01/08/17 06:51 Dose: Not Given Lisinopril (Zestril) 20 mg PO DAILY [facility] Oxycodone/Acetaminophen (Percocet 5/325 Mg Tab) 1 tab PO Q6 PRN PRN Reason: Pain, severe (8-10) Stop: 01/10/17 01:49 Last Admin: 01/07/17 01:58 Dose: 1 tab Pravastatin Sodium (Pravachol) 40 mg PO HS [facility] Last Admin: 01/07/17 21:22 Dose: 40 mg Pregabalin (Lyrica) 100 mg PO TID [facility] Last Admin: 01/08/17 09:04 Dose: 100 mg Zolpidem Tartrate (Ambien) 5 mg PO HS PRN PRN Reason: Insomnia Results - Vital Signs Recent Vital Signs: Last Vital Signs Temp 98.2 F 01/08/17 09:00 Pulse 73 01/08/17 09:00 Resp 18 01/08/17 09:00 BP 146/67 01/08/17 09:00 Pulse Ox 97 01/08/17 09:00 - Labs Result Diagrams: 01/07/17 05:30 01/08/17 06:15 Labs: Laboratory Results - last 24 hr 01/07/17 01/07/17 01/08/17 16:34 21:27 06:15 Sodium 137 Potassium 4.6 Chloride 102 Carbon Dioxide 25 Anion Gap 15 BUN 21 H Creatinine 0.9 Est GFR ( Amer) > 60 Est GFR (Non-Af Amer) > 60 POC Glucose (mg/dL) 186 H 100 Random Glucose 131 H Calcium 9.2 Total Bilirubin 0.6 AST 42 H D ALT 51 Alkaline Phosphatase 391 H Total Protein 7.9 Albumin 3.7 Globulin 4.2 H Albumin/Globulin Ratio 0.9 L Triglycerides 200 H Cholesterol 165 LDL Cholesterol Direct 93 HDL Cholesterol 27 L TSH 3rd Generation 0.31 L 01/08/17 01/08/17 06:43 11:21 Sodium Potassium Chloride Carbon Dioxide Anion Gap BUN Creatinine Est GFR ( Amer) Est GFR (Non-Af Amer) POC Glucose (mg/dL) 128 H 137 H Random Glucose Calcium Total Bilirubin AST ALT Alkaline Phosphatase Total Protein Albumin Globulin Albumin/Globulin Ratio Triglycerides Cholesterol LDL Cholesterol Direct HDL Cholesterol TSH 3rd Generation Assessment & Plan - Assessment and Plan (Free Text) Plan: Patient seen and examined. Radiological studies including carotid ultrasound and MRA of the neck reviewed. In brief, patient is 56 year-old woman with multiple comorbidities and risk factors for peripheral arterial disease. She presents with second syncopal episode over the course of 2 weeks. She also complains of somewhat non-specific neurological symptoms such as "tingling" sensation in her upper extremities and vision changes. Vision changes do not resemble amaurosis fugax, but rather diminished visual acuity based on the position of the head. Patient's work-up shows no radiological evidence of new or previous cerebro- vascular accident. She is intact neurologically with no obvious neurological deficits. MRA of the neck shows advanced bilateral carotid stenosis which is in 60-70% range on the right and is severe on the left, measuring 90%. I discussed the MRA findings as well as pathophysiology and risks of carotid disease with the patient and her son and recommended left carotid endarterectomy this hospitalization. They would like to take a little time to process this information. I will re-examine patient tomorrow and discuss the situation and our plan of actions. I very much appreciate this consult and the opportunity to participate in this patient's care, Collin Kelly MD. - Date & Time Date: 01/08/17 Time: 11:50
--- NOTE | 2017-01-07 15:54 | CP.PCM.PN ---
Subjective - Date & Time of Evaluation Date of Evaluation: 01/07/17 Time of Evaluation: 15:52 - Subjective Subjective: ID NOTE AFEBRILE TODAY URINE SHOWS GRAM NEGATIVE RODS AWAIT IDENTIFICATION CONTINUE ROCEPHEN/ZOSYN Objective - Vital Signs/Intake and Output Vital Signs (last 24 hours): Temp Pulse Resp BP Pulse Ox 98.2 F 67 18 112/51 L 97 01/07/17 12:31 01/07/17 12:31 01/07/17 12:31 01/07/17 12:31 01/07/17 12:31 Intake and Output: 01/07/17 01/07/17 06:59 18:59 Intake Total 600 Output Total 4800 Balance -4200 - Medications Medications: Current Medications Dextrose (Dextrose 50% Inj) 0 ml IV STAT PRN; Protocol PRN Reason: Hyglycemia Protocol Dextrose (Glutose 15) 0 gm PO ONCE PRN; Protocol PRN Reason: Hypoglycemia Protocol Duloxetine HCl (Cymbalta) 60 mg PO HS [facility] Last Admin: 01/07/17 00:42 Dose: 60 mg Glucagon (Glucagen Diagnostic Kit) 0 mg IM STAT PRN; Protocol PRN Reason: Hypoglycemia Protocol Heparin Sodium (Porcine) (Heparin) 5,000 units SC Q8 [facility] PRN Reason: Protocol Last Admin: 01/07/17 09:20 Dose: 5,000 units Hydrochlorothiazide (Hydrodiuril) 25 mg PO DAILY [facility] Ceftriaxone Sodium 1 gm/ (Sodium Chloride) 100 mls @ 100 mls/hr IVPB DAILY [facility] Last Admin: 01/07/17 09:20 Dose: 100 mls/hr Insulin Detemir (Levemir) 30 units SC HS [facility] Insulin Human Lispro (Humalog) 12 units SC AC [facility] Insulin Human Lispro (Humalog) 0 units SC ACHS [facility] PRN Reason: Protocol Lisinopril (Zestril) 20 mg PO DAILY [facility] Oxycodone/Acetaminophen (Percocet 5/325 Mg Tab) 1 tab PO Q6 PRN PRN Reason: Pain, severe (8-10) Stop: 01/10/17 01:49 Last Admin: 01/07/17 01:58 Dose: 1 tab Pravastatin Sodium (Pravachol) 40 mg PO HS [facility] Last Admin: 01/07/17 00:42 Dose: 40 mg Pregabalin (Lyrica) 100 mg PO TID [facility] Last Admin: 01/07/17 12:59 Dose: 100 mg Zolpidem Tartrate (Ambien) 5 mg PO HS PRN PRN Reason: Insomnia - Labs Labs: 01/07/17 05:30 01/07/17 05:30 PT 12.4 Seconds (9.8-13.1) 01/06/17 03:24 INR 1.1 (0.9-1.2) 01/06/17 03:24 APTT 36.5 Seconds (25.6-37.1) 01/06/17 03:24
--- NOTE | 2017-01-07 16:49 | CON ---
DATE: 01/07/2017 ADDENDUM ROOM: 418. I was cut off, just to continue my dictation for the assessment and plan of management. ASSESSMENT: This is a 56-year-old female with uncontrolled and decompensated type 2 insulin-requirin g diabetes, presenting here with extremes of glycemic fluctuation with the possibility of the so-call ed symptomatic hypoglycemia and associated neuroglycopenic and hyperadrenergic manifestations of the same. She apparently had a syncopal episode, the etiology of which has to be ascertained whether we are dealing with a cardiac versus neurologic versus metabolic etiology thereof. PLAN OF MANAGEMENT: As discussed with the patient and the staff, will start her back on a much lower basal and bolus insulin regimen to adjust to her oral intake as noted. We will start her on Levemir given as 30 units subQ at bedtime daily to start tonight. We will also add Humalog given as 12 unit s subQ t.i.d. before meals to start at dinnertime today as ordered. We will titrate incrementally as indicated to optimize metabolic control. We will also continue the low dose correction scale which was modified today to a low dose algorithm using Humalog insulin as given. We will obtain serial keesha mistries and supplement accordingly as needed. We will follow. Hemoglobin A1c will be done to confi rm her prior glycemic control and baseline thyroid function studies will be ordered. We will follow and advise accordingly. Mckenzie Ley MD cc: [id number] TT: 01/07/2017 16:48:16 Confirmation # [id number] Dictation # [id number]
--- NOTE | 2017-01-07 17:52 | MRI ---
PROCEDURE: MR Angiography of the neck without contrast HISTORY: abnormal carotid duplex COMPARISON: Comparison is made to the previous Doppler study dated 01/06/2017 TECHNIQUE: 3D [id number] angiography of the neck was performed. Rotating maximum intensity projection images of the cervical carotid and vertebral arteries were generated. The origins of the common carotid arteries were not visualized, which is a limitation inherent to the non-contrast time of flight technique. FINDINGS: RIGHT CAROTID ARTERIES: Common Carotid Artery: Diffuse irregularity suggestive of atherosclerotic disease. Carotid Bifurcation: Normal. Internal Carotid Artery:There are foci of moderate stenosis at the origin and proximal right internal carotid artery. External Carotid Artery (proximal branches): Small in size P LEFT CAROTID ARTERIES: Common Carotid Artery: Diffuse irregularity suggestive of atherosclerotic disease. Carotid Bifurcation: Normal. Internal Carotid Artery:Foci of moderate stenosis seen at the origin of left internal carotid artery. There is a focal severe stenosis seen at the proximal left internal carotid artery. External Carotid Artery (proximal branches): Tortuous and smear on in size. VERTEBRAL ARTERIES: Right Vertebral Artery: Patent and unremarkable. Left Vertebral Artery: Normal. OTHER FINDINGS: None. IMPRESSION: Foci of moderate stenosis at the origin and proximal right internal carotid artery with stenosis approximately 60-70 percent. Focal severe stenosis seen at the proximal left internal carotid artery with approximately 90 percent stenosis. Foci of moderate stenosis at the origin of the left internal carotid artery.
[2017-01-07] MEDS: SILVASORB ANTIMICROBIAL WOUND GEL TP SCH (18:25)
[2017-01-07] MEDS: Insulin Detemir 100 Units/ml Inj SC SCH (22:00)
[2017-01-08] MEDS: Insulin Lispro (humaLOG) 100 Units/ml Inj SC SCH ×7 (06:51→22:13)
--- NOTE | 2017-01-08 06:56 | CP.PCM.PN ---
Subjective - Date & Time of Evaluation Date of Evaluation: 01/08/17 Time of Evaluation: 06:54 - Subjective Subjective: 56 year old female patient with history of DM, osteomyelitis, CHF, HTN was seen and evaluated at bedside for chronic right plantar foot wound and left foot sub 2 callus. Patient is alert and oriented. Patient reports persistent pain to the right foot. Patient admits to feeling nauseous but denies C/V/F/D/SOB/CP. No other pedal complaints. Objective - Vital Signs/Intake and Output Vital Signs (last 24 hours): Temp Pulse Resp BP Pulse Ox 98.2 F 74 18 143/61 98 01/08/17 05:40 01/08/17 05:40 01/08/17 05:40 01/08/17 05:40 01/08/17 05:40 Intake and Output: 01/07/17 01/08/17 18:59 06:59 Intake Total 1800 Output Total 8200 Balance -6400 - Medications Medications: Current Medications Dextrose (Dextrose 50% Inj) 0 ml IV STAT PRN; Protocol PRN Reason: Hyglycemia Protocol Dextrose (Glutose 15) 0 gm PO ONCE PRN; Protocol PRN Reason: Hypoglycemia Protocol Duloxetine HCl (Cymbalta) 60 mg PO HS [facility] Last Admin: 01/07/17 21:22 Dose: 60 mg Glucagon (Glucagen Diagnostic Kit) 0 mg IM STAT PRN; Protocol PRN Reason: Hypoglycemia Protocol Heparin Sodium (Porcine) (Heparin) 5,000 units SC Q8 [facility] PRN Reason: Protocol Last Admin: 01/08/17 00:39 Dose: 5,000 units Hydrochlorothiazide (Hydrodiuril) 25 mg PO DAILY [facility] Ceftriaxone Sodium 1 gm/ (Sodium Chloride) 100 mls @ 100 mls/hr IVPB DAILY [facility] Last Admin: 01/07/17 09:20 Dose: 100 mls/hr Insulin Detemir (Levemir) 30 units SC HS [facility] Last Admin: 01/07/17 22:00 Dose: Not Given Insulin Human Lispro (Humalog) 12 units SC AC [facility] Last Admin: 01/07/17 18:23 Dose: 12 u Insulin Human Lispro (Humalog) 0 units SC ACHS [facility] PRN Reason: Protocol Last Admin: 01/08/17 06:51 Dose: Not Given Lisinopril (Zestril) 20 mg PO DAILY [facility] Oxycodone/Acetaminophen (Percocet 5/325 Mg Tab) 1 tab PO Q6 PRN PRN Reason: Pain, severe (8-10) Stop: 01/10/17 01:49 Last Admin: 01/07/17 01:58 Dose: 1 tab Pravastatin Sodium (Pravachol) 40 mg PO HS [facility] Last Admin: 01/07/17 21:22 Dose: 40 mg Pregabalin (Lyrica) 100 mg PO TID [facility] Last Admin: 01/07/17 18:24 Dose: 100 mg Zolpidem Tartrate (Ambien) 5 mg PO HS PRN PRN Reason: Insomnia - Labs Labs: 01/07/17 05:30 01/07/17 05:30 PT 12.4 Seconds (9.8-13.1) 01/06/17 03:24 INR 1.1 (0.9-1.2) 01/06/17 03:24 APTT 36.5 Seconds (25.6-37.1) 01/06/17 03:24 - Constitutional Appears: Well, Non-toxic, No Acute Distress - Extremities Exam Additional comments: Vasc: DP/PT pulses palpable 1/4 b/l. TG WNL. No edema noted. Neuro: Gross sensation intact. Derm: Right foot ulceration measuring 3.5 x 2.5 x 0.4 cm. Wound base is 90% granular and 10% fibrotic. Wound edges are hyperkeratotic and macerated but intact. Wound exhibits no clinical signs of infection such as purulence, malodor , fluctuance. Wound does not probe to bone. No periwound erythema noted. No drainage noted. Ortho: Mild pain on palpation to periwound. Tenderness to palpation to left sub met 2 callus. - Neurological Exam Neurological Exam: Alert, Awake, Oriented x3 - Psychiatric Exam Psychiatric exam: Normal Affect, Normal Mood Assessment and Plan - Assessment and Plan (Free Text) Assessment: 56 y/o F with 1) chronic right foot ulceration (non-infected) and left sub met 2 callus secondary to diabetic neuropathy; 2) UTI Plan: Patient examined and evaluated. Discussed with attending Dr. Kaur Charts, labs, and vitals were reviewed: pt is afebrile Dressing applied Silvasorb, 4x4s, ABD, and kerlix Will continue to monitor left sub met 2 callus PWB right foot Awaiting right foot X-rays Podiatry will continue to follow while in-house
[2017-01-08 07:27] LABS: ALB/GLOB RATIO 0.9 (1.0-2.1); ALBUMIN 3.7 g/dL (3.5-5.0); ALT/SGPT 51 U/L (9-52); AST/SGOT 42 U/L (14-36); BLOOD UREA NITROGEN 21 mg/dl (7-17); CALCIUM 9.2 mg/dL (8.4-10.2); GFR AFRICAN-AMERICAN > 60; GFR NON-AFRICAN AMERICAN > 60; HDL CHOLESTEROL 27 MG/DL (30-70)
[2017-01-08 07:38] LABS: LDL CHOLESTEROL 93 mg/dL (0-129)
--- NOTE | 2017-01-08 08:14 | CON ---
DATE: 01/07/2017 ROOM: 418. HISTORY OF PRESENT ILLNESS: This is a 56-year-old female, very well known to me from outpatient diab etic management who presents here with an apparent syncopal episode and was found unresponsive by her son in the basement and has now been admitted for closer cardiac and neurologic workup thereof and i s also being referred for diabetic evaluation and management. PAST MEDICAL HISTORY: As mentioned above, history of uncontrolled type 2 insulin-requiring diabetes with A1Cs always in the 11-12% range despite high dose basal and bolus insulin regimen as given. Her last insulin combination therapy given upon discharge from the last admission was Levemir given as 4 0 units subQ at bedtime daily with Humalog given as 20-30 units t.i.d. before meals as ordered. She was also on Janumet given as b.i.d. and Amaryl given as 4 mg b.i.d. with Invokana given as 30 0 mg once daily as ordered. History of hypertensive cardiovascular disease and dyslipidemia, history of coronary artery disease with previous admissions for congestive heart failure, history of general ized anxiety and depression, history of chronic obstructive lung disease and previous admissions for asthmatic bronchitis, history of lumbar disk disease and low back pain as noted. PAST SURGICAL HISTORY: She had previous cholecystectomy, appendectomy and . PHYSICAL EXAMINATION: GENERAL: This is an obese female in no apparent distress. VITAL SIGNS: With a blood pressure of 100/70 which was actually lower in the Emergency Room with a s ystolic of 77____. Pulse is 80 beats per minute and regular, temperature 98, respirations 20. Heigh t is 5 feet 8, weight is 240 pounds. HEENT: Head is normocephalic. Eyes anicteric with pink conjunctivae. Fundoscopy not possible at th is time. Ears, nose and throat otherwise normal. NECK: Supple. Thyroid gland is normal in size. No carotid bruits. No cervical adenopathy. CARDIOPULMONARY: There is an adynamic precordium. S1, S2 is rapid and regular. LUNGS: Show scattered rhonchi. ABDOMEN: Flat, soft with positive bowel sounds. EXTREMITIES: No peripheral edema. Pulses are diminished peripherally. FAMILY HISTORY: Positive for hypertension and diabetes. SOCIAL HISTORY: The patient has supportive family. Admits to cigarette smoking close to half a pack a day for some years now. REVIEW OF SYSTEMS: As mentioned above, admits to generalized body weakness with easy fatigability an d tiredness and suboptimal energy level. Also admits to dizziness and lightheadedness, worse in the last 1 week or so prior to admission. Her energy level has been suboptimal as noted. No chest pains or palpitations or PNDs. Her oral intake, however, has been very poor and suboptimal with variable meal portions and admits to nausea and dyspepsia and vague upper abdominal pain. No recent alteratio ns of bowel or urinary patterns. LABORATORY DATA: WBC initially was 16.6, hemoglobin of 10, hematocrit of 30, MCV 92, platelets 219. The chemistries initially showed a BUN of 67, sodium 130, potassium 5.4, chloride 98, CO2 of 21, glu cose 189 and creatinine 2.7. Her glucose levels today have ranged from 173 to 322 mg/dL. ASSESSMENT: This is a 56-year-old female with uncontrolled and decompensated type 2 insulin-requirin g diabetes with extremes of glycemic fluctuations related to the very poor and variable oral intake w ith low-normal glycemic episodes and supervening hyperglycemic accelerations as the insulin regimen w as actually withheld by the primary physician, which really should not be done because the patient wi ll still have continued overnight hepatic gluconeogenesis and supervening fasting hyperglycemic value s as noted thereof. She also has diabetic microvascular complications of retinopathy, polyneuropathy , and nephropathy with underlying chronic kidney disease. She also has diabetic macrovascular compli cations of coronary artery disease, cerebrovascular disease, and also carotid stenosis with underlyin g peripheral arterial disease and vasculopathy. She also has a right foot neuropathic nonhealing ulc eration with exudates as noted. We will follow and advise accordingly. Mckenzie Ley MD cc: [id number] TT: 01/07/2017 15:20:59 Confirmation # [id number] Dictation # [id number] [email or web address]
[2017-01-08] MEDS: SILVASORB ANTIMICROBIAL WOUND GEL TP SCH ×2 (09:00→16:39)
--- NOTE | 2017-01-08 10:47 | CP.PCM.PN ---
Subjective - Date & Time of Evaluation Date of Evaluation: 01/08/17 Time of Evaluation: 10:46 - Subjective Subjective: Patient is comfortable No new event reported Serum creatinine and kidney function came back to normal Patient recovers from acute kidney injury Follow-up as needed thank you Objective - Vital Signs/Intake and Output Vital Signs (last 24 hours): Temp Pulse Resp BP Pulse Ox 98.2 F 73 18 146/67 97 01/08/17 09:00 01/08/17 09:00 01/08/17 09:00 01/08/17 09:00 01/08/17 09:00 - Medications Medications: Current Medications Dextrose (Dextrose 50% Inj) 0 ml IV STAT PRN; Protocol PRN Reason: Hyglycemia Protocol Dextrose (Glutose 15) 0 gm PO ONCE PRN; Protocol PRN Reason: Hypoglycemia Protocol Duloxetine HCl (Cymbalta) 60 mg PO [facility] Last Admin: 01/07/17 21:22 Dose: 60 mg Glucagon (Glucagen Diagnostic Kit) 0 mg IM STAT PRN; Protocol PRN Reason: Hypoglycemia Protocol Heparin Sodium (Porcine) (Heparin) 5,000 units SC Q8 [facility] PRN Reason: Protocol Last Admin: 01/08/17 08:59 Dose: 5,000 units Hydrochlorothiazide (Hydrodiuril) 25 mg PO DAILY [facility] Ceftriaxone Sodium 1 gm/ (Sodium Chloride) 100 mls @ 100 mls/hr IVPB DAILY [facility] Last Admin: 01/08/17 09:00 Dose: 100 mls/hr Insulin Detemir (Levemir) 30 units SC [facility] Last Admin: 01/07/17 22:00 Dose: Not Given Insulin Human Lispro (Humalog) 12 units SC AC [facility] Last Admin: 01/08/17 08:59 Dose: 126 u Insulin Human Lispro (Humalog) 0 units SC ACHS [facility] PRN Reason: Protocol Last Admin: 01/08/17 06:51 Dose: Not Given Lisinopril (Zestril) 20 mg PO DAILY [facility] Oxycodone/Acetaminophen (Percocet 5/325 Mg Tab) 1 tab PO Q6 PRN PRN Reason: Pain, severe (8-10) Stop: 01/10/17 01:49 Last Admin: 01/07/17 01:58 Dose: 1 tab Pravastatin Sodium (Pravachol) 40 mg PO [facility] Last Admin: 01/07/17 21:22 Dose: 40 mg Pregabalin (Lyrica) 100 mg PO TID [facility] Last Admin: 01/08/17 09:04 Dose: 100 mg Zolpidem Tartrate (Ambien) 5 mg PO HS PRN PRN Reason: Insomnia - Labs Labs: 01/07/17 05:30 01/08/17 06:15 PT 12.4 Seconds (9.8-13.1) 01/06/17 03:24 INR 1.1 (0.9-1.2) 01/06/17 03:24 APTT 36.5 Seconds (25.6-37.1) 01/06/17 03:24 Assessment and Plan (1) Acute on chronic renal failure Status: Acute
--- NOTE | 2017-01-08 14:15 | CP.PCM.PN ---
Subjective - Date & Time of Evaluation Date of Evaluation: 01/08/17 Time of Evaluation: 14:12 - Subjective Subjective: Vascular Surgery - Dr. Kelly pt [facility]. Pt states she feels fine, no complaints, no feelings of dizziness. The MRA results were discussed with patient at bedside. She is considering surgery. Objective - Vital Signs/Intake and Output Vital Signs (last 24 hours): Temp Pulse Resp BP Pulse Ox 98.5 F 87 18 105/70 96 01/08/17 13:00 01/08/17 13:00 01/08/17 13:00 01/08/17 13:00 01/08/17 13:00 - Medications Medications: Current Medications Dextrose (Dextrose 50% Inj) 0 ml IV STAT PRN; Protocol PRN Reason: Hyglycemia Protocol Dextrose (Glutose 15) 0 gm PO ONCE PRN; Protocol PRN Reason: Hypoglycemia Protocol Duloxetine HCl (Cymbalta) 60 mg PO HS [facility] Last Admin: 01/07/17 21:22 Dose: 60 mg Glucagon (Glucagen Diagnostic Kit) 0 mg IM STAT PRN; Protocol PRN Reason: Hypoglycemia Protocol Heparin Sodium (Porcine) (Heparin) 5,000 units SC Q8 [facility] PRN Reason: Protocol Last Admin: 01/08/17 08:59 Dose: 5,000 units Hydrochlorothiazide (Hydrodiuril) 25 mg PO DAILY [facility] Ceftriaxone Sodium 1 gm/ (Sodium Chloride) 100 mls @ 100 mls/hr IVPB DAILY [facility] Last Admin: 01/08/17 09:00 Dose: 100 mls/hr Insulin Detemir (Levemir) 30 units SC HS [facility] Last Admin: 01/07/17 22:00 Dose: Not Given Insulin Human Lispro (Humalog) 12 units SC AC [facility] Last Admin: 01/08/17 08:59 Dose: 126 u Insulin Human Lispro (Humalog) 0 units SC ACHS [facility] PRN Reason: Protocol Last Admin: 01/08/17 06:51 Dose: Not Given Lisinopril (Zestril) 20 mg PO DAILY [facility] Oxycodone/Acetaminophen (Percocet 5/325 Mg Tab) 1 tab PO Q6 PRN PRN Reason: Pain, severe (8-10) Stop: 01/10/17 01:49 Last Admin: 01/07/17 01:58 Dose: 1 tab Pravastatin Sodium (Pravachol) 40 mg PO HS [facility] Last Admin: 01/07/17 21:22 Dose: 40 mg Pregabalin (Lyrica) 100 mg PO TID [facility] Last Admin: 01/08/17 09:04 Dose: 100 mg Zolpidem Tartrate (Ambien) 5 mg PO HS PRN PRN Reason: Insomnia - Labs Labs: 01/07/17 05:30 01/08/17 06:15 PT 12.4 Seconds (9.8-13.1) 01/06/17 03:24 INR 1.1 (0.9-1.2) 01/06/17 03:24 APTT 36.5 Seconds (25.6-37.1) 01/06/17 03:24 - Constitutional Appears: No Acute Distress - Head Exam Head Exam: ATRAUMATIC, NORMAL INSPECTION, NORMOCEPHALIC - Eye Exam Eye Exam: Normal appearance - Respiratory Exam Respiratory Exam: NORMAL BREATHING PATTERN. absent: Respiratory Distress - Cardiovascular Exam Cardiovascular Exam: REGULAR RHYTHM - Neurological Exam Neurological Exam: Alert, Oriented x3 - Psychiatric Exam Psychiatric exam: Normal Affect, Normal Mood - Skin Skin Exam: Dry, Intact Assessment and Plan - Assessment and Plan (Free Text) Assessment: 56 yo F admitted for syncope, found to have Carotid stenosis -MRA reviewed, Left w/ severe stenosis, 90%; 60-70% on the Right -Discussed Left CEA with patient and family member at bedside -Pt is considering surgery and wishes to think it over tonight -Will dw patient again tomorrow, if agrees to proceed will plan for Left CEA early next week Herbert Marshall PGY2
--- NOTE | 2017-01-08 18:04 | CP.PCM.PN ---
<KennedyTabitha - Last Filed: 01/09/17 12:53> Subjective - Date & Time of Evaluation Date of Evaluation: 01/08/17 Time of Evaluation: 07:00 - Subjective Subjective: Patient seen and examined at bedside with attending. Overnight events reviewed. 56F w/o acute complaints at this time. She denies any SOB, chest pain/ palpitations, or dysuria and reports feeling better. Objective - Vital Signs/Intake and Output Vital Signs (last 24 hours): Temp Pulse Resp BP Pulse Ox 36.9 C 67 18 128/67 99 01/08/17 15:53 01/08/17 15:53 01/08/17 15:53 01/08/17 15:53 01/08/17 15:53 Intake and Output: 01/08/17 01/08/17 06:59 18:59 Intake Total 650 Balance 650 - Medications Medications: Current Medications Dextrose (Dextrose 50% Inj) 0 ml IV STAT PRN; Protocol PRN Reason: Hyglycemia Protocol Dextrose (Glutose 15) 0 gm PO ONCE PRN; Protocol PRN Reason: Hypoglycemia Protocol Duloxetine HCl (Cymbalta) 60 mg PO HS [facility] Last Admin: 01/07/17 21:22 Dose: 60 mg Glucagon (Glucagen Diagnostic Kit) 0 mg IM STAT PRN; Protocol PRN Reason: Hypoglycemia Protocol Heparin Sodium (Porcine) (Heparin) 5,000 units SC Q8 [facility] PRN Reason: Protocol Last Admin: 01/08/17 16:36 Dose: 5,000 units Hydrochlorothiazide (Hydrodiuril) 25 mg PO DAILY [facility] Ceftriaxone Sodium 1 gm/ (Sodium Chloride) 100 mls @ 100 mls/hr IVPB DAILY [facility] Last Admin: 01/08/17 09:00 Dose: 100 mls/hr Insulin Detemir (Levemir) 30 units SC HS [facility] Last Admin: 01/07/17 22:00 Dose: Not Given Insulin Human Lispro (Humalog) 12 units SC AC [facility] Last Admin: 01/08/17 16:37 Dose: Not Given Insulin Human Lispro (Humalog) 0 units SC ACHS [facility] PRN Reason: Protocol Last Admin: 01/08/17 16:35 Dose: Not Given Lisinopril (Zestril) 20 mg PO DAILY [facility] Oxycodone/Acetaminophen (Percocet 5/325 Mg Tab) 1 tab PO Q6 PRN PRN Reason: Pain, severe (8-10) Stop: 01/10/17 01:49 Last Admin: 01/07/17 01:58 Dose: 1 tab Pravastatin Sodium (Pravachol) 40 mg PO HS [facility] Last Admin: 01/07/17 21:22 Dose: 40 mg Pregabalin (Lyrica) 100 mg PO TID [facility] Last Admin: 01/08/17 16:34 Dose: 100 mg Zolpidem Tartrate (Ambien) 5 mg PO HS PRN PRN Reason: Insomnia - Labs Labs: 01/07/17 05:30 01/08/17 06:15 PT 12.4 Seconds (9.8-13.1) 01/06/17 03:24 INR 1.1 (0.9-1.2) 01/06/17 03:24 APTT 36.5 Seconds (25.6-37.1) 01/06/17 03:24 - Constitutional Appears: Non-toxic, No Acute Distress - Head Exam Head Exam: NORMAL INSPECTION - Eye Exam Eye Exam: EOMI, PERRL - ENT Exam ENT Exam: Mucous Membranes Moist, Normal Exam - Neck Exam Neck Exam: Normal Inspection. absent: Lymphadenopathy - Respiratory Exam Respiratory Exam: Clear to Ausculation Bilateral, NORMAL BREATHING PATTERN. absent: Rales, Wheezes - Cardiovascular Exam Cardiovascular Exam: REGULAR RHYTHM. absent: JVD - GI/Abdominal Exam GI & Abdominal Exam: Soft, Normal Bowel Sounds. absent: Tenderness - Extremities Exam Extremities Exam: Full ROM, Normal Capillary Refill - Neurological Exam Neurological Exam: Awake, Oriented x3 - Psychiatric Exam Psychiatric exam: Normal Affect, Normal Mood - Skin Skin Exam: Normal Color, Warm Assessment and Plan (2) Syncope Assessment & Plan: Although possible component of UTI, carotid duplex positive and follow up MRA showing >90 Lt carotid occlusion and 60-70 Rt carotid stenosis. - Neurology Consult (Dr Bella): ASA, Plavix, Statin, Lyrica - Vascular Surgery Consult(Dr Duenas): Lt CEA early next week - Fall precautions Status: Acute (3) UTI (urinary tract infection) Assessment & Plan: - c/w Rocephin 1g, IV, Daily - Zosyn IV - ID Consult (Dr Verde): Rocephin/Zosyn until sensitivities returned Status: Acute (4) DVT prophylaxis Assessment & Plan: Heparin 5,000U, SC, Q8H Status: Acute (5) Foot ulcer, right Assessment & Plan: Chronic, but foul odor and draining. - Podiatry consult - Awaiting Foot X-rays Status: Chronic (6) Diabetes Assessment & Plan: Not well-controlled. - Endocrinology Consult (Dr Ley): Levemir, HUmalog, SSI - Resume home medications except renal excreted - Hypoglycemic Bundle - Accu-checks - MOD CHO Status: Chronic (7) Hypertension Assessment & Plan: Chronic, stable. TED resolving -Resume home medications Status: Chronic (8) Acute on chronic renal failure Assessment & Plan: Likely multifactorial with dehydration, medication. Resolving - Nephrology Consult (Dr Kaiser): Hydrate, limit nephrotoxic medications - Restrict nephrotoxic medications - trend BMP Status: Acute <Pavel Willoughby - Last Filed: 01/10/17 13:27> Objective - Vital Signs/Intake and Output Vital Signs (last 24 hours): Temp Pulse Resp BP Pulse Ox 97.8 F 66 18 123/69 99 01/10/17 12:00 01/10/17 12:00 01/10/17 12:00 01/10/17 12:00 01/10/17 12:00 - Medications Medications: Current Medications Dextrose (Dextrose 50% Inj) 0 ml IV STAT PRN; Protocol PRN Reason: Hyglycemia Protocol Dextrose (Glutose 15) 0 gm PO ONCE PRN; Protocol PRN Reason: Hypoglycemia Protocol Duloxetine HCl (Cymbalta) 60 mg PO HS [facility] Last Admin: 01/09/17 22:23 Dose: 60 mg Glucagon (Glucagen Diagnostic Kit) 0 mg IM STAT PRN; Protocol PRN Reason: Hypoglycemia Protocol Heparin Sodium (Porcine) (Heparin) 5,000 units SC Q8 [facility] PRN Reason: Protocol Last Admin: 01/10/17 09:28 Dose: 5,000 units Hydrochlorothiazide (Hydrodiuril) 25 mg PO DAILY [facility] Ceftriaxone Sodium 1 gm/ (Sodium Chloride) 100 mls @ 100 mls/hr IVPB DAILY [facility] Last Admin: 01/10/17 09:36 Dose: 100 mls/hr Insulin Detemir (Levemir) 34 units SC HS [facility] Last Admin: 01/09/17 22:25 Dose: 34 units Insulin Human Lispro (Humalog) 0 units SC ACHS [facility] PRN Reason: Protocol Last Admin: 01/10/17 11:45 Dose: Not Given Insulin Human Lispro (Humalog) 14 units SC AC [facility] Last Admin: 01/10/17 11:45 Dose: 14 units Lisinopril (Zestril) 20 mg PO DAILY [facility] Pravastatin Sodium (Pravachol) 40 mg PO HS [facility] Last Admin: 01/09/17 22:27 Dose: 40 mg Pregabalin (Lyrica) 100 mg PO TID [facility] Last Admin: 01/10/17 09:35 Dose: 100 mg Zolpidem Tartrate (Ambien) 5 mg PO HS PRN PRN Reason: Insomnia - Labs Labs: 01/07/17 05:30 01/08/17 06:15 PT 12.4 Seconds (9.8-13.1) 01/06/17 03:24 INR 1.1 (0.9-1.2) 01/06/17 03:24 APTT 36.5 Seconds (25.6-37.1) 01/06/17 03:24 Assessment and Plan (1) Carotid artery stenosis Status: Acute (2) Syncope Status: Acute (3) Diabetes mellitus type 2 in obese Status: Acute (4) UTI (urinary tract infection) Status: Acute (5) Hyperlipidemia Status: Chronic (6) Hypertension Status: Chronic - Assessment and Plan (Free Text) Plan: I was present during evaluation and discussed with Dr eKnnedy murray plans of care pavel Willoughby M.D.
--- NOTE | 2017-01-08 20:15 | PN ---
DATE: 01/08/2017 ROOM: 418. SUBJECTIVE: This is a 56-year-old female with recent uncontrolled type 2 insulin-requiring diabetes, presenting here with a syncopal episode and evaluated to have been evaluated to have severe carotid stenosis and is now being followed closely for metabolic management. Her oral intake remains variabl e with suboptimal meal portions as noted. Her glycemic levels are fluctuating, but much improved at this time and the glucose levels have ranged today from 128 to 137 mg/dL. Her latest chemistries cruzito wed a BUN of 21, sodium 137, potassium 4.6, chloride 102, CO2 of 25, glucose 131, and creatinine 0.9. So, at this time, we will continue the modified basal and bolus insulin regimen to allow for dose e quilibration and keep her on the Levemir given as 30 units subQ at bedtime daily as given. We will c ontinue the Humalog given as 12 units subQ t.i.d. before meals as ordered. We will titrate increment ally as indicated to optimize metabolic control. We will also continue the low-dose correction scale using Humalog insulin as given. We will obtain serial chemistries and supplement accordingly as nerhonda ded. We will follow. Mckenzie Ley MD cc: [phone] TT: 01/08/2017 20:15:07 Confirmation # [id number] Dictation # [id number] david
[2017-01-08] MEDS: Insulin Detemir 100 Units/ml Inj SC SCH (22:13)
[2017-01-08] MEDS: Pravastatin Sodium 40 MG TAB PO SCH (22:14)
--- NOTE | 2017-01-09 06:43 | CP.PCM.PN ---
Subjective - Date & Time of Evaluation Date of Evaluation: 01/09/17 Time of Evaluation: 06:25 - Subjective Subjective: 56 year old female patient with history of DM, osteomyelitis, CHF, HTN was seen and evaluated at bedside for chronic right plantar foot wound and left foot sub 2 callus. Patient is alert and orientated. She states that there is pain when applying pressure to her wound site but no pain as she is laying there. She also complains of her room being too warm. She did not get a good night sleep due to the fire alarm. She denies n/v/sob/cp/f or chills. No other pedal complaints at this time. Objective - Vital Signs/Intake and Output Vital Signs (last 24 hours): Temp Pulse Resp BP Pulse Ox 98.6 F 62 19 123/55 L 98 01/09/17 04:47 01/09/17 04:47 01/09/17 04:47 01/09/17 04:47 01/09/17 04:47 Intake and Output: 01/08/17 01/09/17 18:59 06:59 Intake Total 650 Balance 650 - Medications Medications: Current Medications Dextrose (Dextrose 50% Inj) 0 ml IV STAT PRN; Protocol PRN Reason: Hyglycemia Protocol Dextrose (Glutose 15) 0 gm PO ONCE PRN; Protocol PRN Reason: Hypoglycemia Protocol Duloxetine HCl (Cymbalta) 60 mg PO HS [facility] Last Admin: 01/08/17 22:12 Dose: 60 mg Glucagon (Glucagen Diagnostic Kit) 0 mg IM STAT PRN; Protocol PRN Reason: Hypoglycemia Protocol Heparin Sodium (Porcine) (Heparin) 5,000 units SC Q8 [facility] PRN Reason: Protocol Last Admin: 01/09/17 00:20 Dose: 5,000 units Hydrochlorothiazide (Hydrodiuril) 25 mg PO DAILY [facility] Ceftriaxone Sodium 1 gm/ (Sodium Chloride) 100 mls @ 100 mls/hr IVPB DAILY [facility] Last Admin: 01/08/17 09:00 Dose: 100 mls/hr Insulin Detemir (Levemir) 30 units SC HS [facility] Last Admin: 01/08/17 22:13 Dose: 30 units Insulin Human Lispro (Humalog) 12 units SC AC [facility] Last Admin: 01/08/17 16:37 Dose: Not Given Insulin Human Lispro (Humalog) 0 units SC ACHS [facility] PRN Reason: Protocol Last Admin: 01/08/17 22:13 Dose: Not Given Lisinopril (Zestril) 20 mg PO DAILY [facility] Oxycodone/Acetaminophen (Percocet 5/325 Mg Tab) 1 tab PO Q6 PRN PRN Reason: Pain, severe (8-10) Stop: 01/10/17 01:49 Last Admin: 01/07/17 01:58 Dose: 1 tab Pravastatin Sodium (Pravachol) 40 mg PO HS [facility] Last Admin: 01/08/17 22:14 Dose: 40 mg Pregabalin (Lyrica) 100 mg PO TID [facility] Last Admin: 01/08/17 16:34 Dose: 100 mg Zolpidem Tartrate (Ambien) 5 mg PO HS PRN PRN Reason: Insomnia - Labs Labs: 01/07/17 05:30 01/08/17 06:15 PT 12.4 Seconds (9.8-13.1) 01/06/17 03:24 INR 1.1 (0.9-1.2) 01/06/17 03:24 APTT 36.5 Seconds (25.6-37.1) 01/06/17 03:24 - Constitutional Appears: Well, Non-toxic, No Acute Distress - Extremities Exam Additional comments: Vasc: DP/PT pulses palpable 1/4 b/l. TG WNL. No edema noted. No peripheral edema noted. Neuro: Gross sensation intact bilaterally. Derm: Right foot ulceration measuring 3.5 x 2.5 x 0.4 cm. Wound base is 90% granular and 10% fibrotic. Wound edges are hyperkeratotic and macerated but intact. Wound exhibits no clinical signs of infection such as purulence, malodor , fluctuance. Wound does not probe to bone. No periwound erythema noted. Mild serosangious drainage. Ortho: Mild pain on palpation. Tenderness to palpation to left sub met 2 callus. - Neurological Exam Neurological Exam: Alert, Awake, Oriented x3 - Psychiatric Exam Psychiatric exam: Normal Affect, Normal Mood Assessment and Plan - Assessment and Plan (Free Text) Assessment: 56 y/o F with 1) chronic right foot ulceration (non-infected) and left sub met 2 callus secondary to diabetic neuropathy; 2) UTI Plan: Patient seen and evaluated at bedside. Plan was discussed with attending Dr. Kaur Charts, labs, and vitals were reviewed: pt is afebrile Dressing applied Silvasorb, 4x4s, ABD, and kerlix Will continue to monitor left sub met 2 callus while in house PWB right foot Awaiting right foot X-rays Podiatry will continue to follow while in-house
--- NOTE | 2017-01-09 06:48 | CP.PCM.PN ---
<Jenny Mckeon - Last Filed: 01/09/17 09:26> Subjective - Date & Time of Evaluation Date of Evaluation: 01/09/17 Time of Evaluation: 06:48 - Subjective Subjective: Patient seen and examined at bedside this AM. NAEO. Patient denies any symptoms. States that she has decided to proceed with the CEA of the left carotid artery. Will discuss with primary regarding necessary medical clearance Objective - Vital Signs/Intake and Output Vital Signs (last 24 hours): Temp Pulse Resp BP Pulse Ox 98.6 F 62 19 123/55 L 98 01/09/17 04:47 01/09/17 04:47 01/09/17 04:47 01/09/17 04:47 01/09/17 04:47 Intake and Output: 01/08/17 01/09/17 18:59 06:59 Intake Total 650 Balance 650 - Medications Medications: Current Medications Dextrose (Dextrose 50% Inj) 0 ml IV STAT PRN; Protocol PRN Reason: Hyglycemia Protocol Dextrose (Glutose 15) 0 gm PO ONCE PRN; Protocol PRN Reason: Hypoglycemia Protocol Duloxetine HCl (Cymbalta) 60 mg PO HS [facility] Last Admin: 01/08/17 22:12 Dose: 60 mg Glucagon (Glucagen Diagnostic Kit) 0 mg IM STAT PRN; Protocol PRN Reason: Hypoglycemia Protocol Heparin Sodium (Porcine) (Heparin) 5,000 units SC Q8 [facility] PRN Reason: Protocol Last Admin: 01/09/17 00:20 Dose: 5,000 units Hydrochlorothiazide (Hydrodiuril) 25 mg PO DAILY [facility] Ceftriaxone Sodium 1 gm/ (Sodium Chloride) 100 mls @ 100 mls/hr IVPB DAILY [facility] Last Admin: 01/08/17 09:00 Dose: 100 mls/hr Insulin Detemir (Levemir) 30 units SC HS [facility] Last Admin: 01/08/17 22:13 Dose: 30 units Insulin Human Lispro (Humalog) 12 units SC AC [facility] Last Admin: 01/08/17 16:37 Dose: Not Given Insulin Human Lispro (Humalog) 0 units SC ACHS [facility] PRN Reason: Protocol Last Admin: 01/08/17 22:13 Dose: Not Given Lisinopril (Zestril) 20 mg PO DAILY [facility] Oxycodone/Acetaminophen (Percocet 5/325 Mg Tab) 1 tab PO Q6 PRN PRN Reason: Pain, severe (8-10) Stop: 01/10/17 01:49 Last Admin: 01/07/17 01:58 Dose: 1 tab Pravastatin Sodium (Pravachol) 40 mg PO HS [facility] Last Admin: 01/08/17 22:14 Dose: 40 mg Pregabalin (Lyrica) 100 mg PO TID [facility] Last Admin: 01/08/17 16:34 Dose: 100 mg Zolpidem Tartrate (Ambien) 5 mg PO HS PRN PRN Reason: Insomnia - Labs Labs: 01/07/17 05:30 01/08/17 06:15 PT 12.4 Seconds (9.8-13.1) 01/06/17 03:24 INR 1.1 (0.9-1.2) 01/06/17 03:24 APTT 36.5 Seconds (25.6-37.1) 01/06/17 03:24 - Constitutional Appears: Well, Non-toxic, No Acute Distress - Head Exam Head Exam: ATRAUMATIC, NORMOCEPHALIC - Eye Exam Eye Exam: Normal appearance. absent: Conjunctival injection, Scleral icterus - ENT Exam ENT Exam: Mucous Membranes Moist, Normal Oropharynx - Respiratory Exam Respiratory Exam: NORMAL BREATHING PATTERN. absent: Accessory Muscle Use, Respiratory Distress - Cardiovascular Exam Cardiovascular Exam: RRR - GI/Abdominal Exam GI & Abdominal Exam: Soft. absent: Distended, Tenderness - Extremities Exam Extremities Exam: absent: Calf Tenderness, Pedal Edema, Tenderness - Neurological Exam Neurological Exam: Alert, Awake, Oriented x3 - Psychiatric Exam Psychiatric exam: Normal Affect, Normal Mood - Skin Skin Exam: Dry, Intact, Normal Color, Warm Assessment and Plan - Assessment and Plan (Free Text) Assessment: 56 yo F admitted for syncope, found to have Carotid stenosis -MRA reviewed, Left w/ severe stenosis, 90%; 60-70% on the Right -plan for L CEA early next week -Patient will need medical clearance per primary team Dw Dr Robin Mckeon, PGY1 <Collin eKlly - Last Filed: 01/09/17 10:41> Objective - Vital Signs/Intake and Output Vital Signs (last 24 hours): Temp Pulse Resp BP Pulse Ox 98.4 F 69 18 129/70 98 01/09/17 08:35 01/09/17 08:35 01/09/17 08:35 01/09/17 08:35 01/09/17 08:35 - Medications Medications: Current Medications Dextrose (Dextrose 50% Inj) 0 ml IV STAT PRN; Protocol PRN Reason: Hyglycemia Protocol Dextrose (Glutose 15) 0 gm PO ONCE PRN; Protocol PRN Reason: Hypoglycemia Protocol Duloxetine HCl (Cymbalta) 60 mg PO HS [facility] Last Admin: 01/08/17 22:12 Dose: 60 mg Glucagon (Glucagen Diagnostic Kit) 0 mg IM STAT PRN; Protocol PRN Reason: Hypoglycemia Protocol Heparin Sodium (Porcine) (Heparin) 5,000 units SC Q8 [facility] PRN Reason: Protocol Last Admin: 01/09/17 09:12 Dose: 5,000 units Hydrochlorothiazide (Hydrodiuril) 25 mg PO DAILY [facility] Ceftriaxone Sodium 1 gm/ (Sodium Chloride) 100 mls @ 100 mls/hr IVPB DAILY [facility] Last Admin: 01/09/17 09:20 Dose: 100 mls/hr Insulin Detemir (Levemir) 30 units SC HS [facility] Last Admin: 01/08/17 22:13 Dose: 30 units Insulin Human Lispro (Humalog) 12 units SC AC [facility] Last Admin: 01/08/17 16:37 Dose: Not Given Insulin Human Lispro (Humalog) 0 units SC ACHS [facility] PRN Reason: Protocol Last Admin: 01/08/17 22:13 Dose: Not Given Lisinopril (Zestril) 20 mg PO DAILY [facility] Oxycodone/Acetaminophen (Percocet 5/325 Mg Tab) 1 tab PO Q6 PRN PRN Reason: Pain, severe (8-10) Stop: 01/10/17 01:49 Last Admin: 01/07/17 01:58 Dose: 1 tab Pravastatin Sodium (Pravachol) 40 mg PO HS [facility] Last Admin: 01/08/17 22:14 Dose: 40 mg Pregabalin (Lyrica) 100 mg PO TID [facility] Last Admin: 01/09/17 09:20 Dose: 100 mg Zolpidem Tartrate (Ambien) 5 mg PO HS PRN PRN Reason: Insomnia - Labs Labs: 01/07/17 05:30 01/08/17 06:15 PT 12.4 Seconds (9.8-13.1) 01/06/17 03:24 INR 1.1 (0.9-1.2) 01/06/17 03:24 APTT 36.5 Seconds (25.6-37.1) 01/06/17 03:24 Assessment and Plan - Assessment and Plan (Free Text) Plan: Patient seen and examined. No events overnight. No new neurological symptoms or complaints. Patient is motor-sensory and neurologically intact at the baseline with benign physical exam. Continue supportive care. Patient can be transferred to regular floor from our surgical standpoint. Our plan is left carotid endarterectomy this hospitalization early next week. Cardiology consult and cardiac / medical clearance for surgery next week.
[2017-01-09] MEDS: Insulin Lispro (humaLOG) 100 Units/ml Inj SC SCH ×7 (08:00→22:24)
[2017-01-09] MEDS: SILVASORB ANTIMICROBIAL WOUND GEL TP SCH ×2 (09:29→18:41)
--- NOTE | 2017-01-09 09:43 | PQF GENQUE ---
Dr. Willoughby, Etiology of Syncope? if known after the work up is completed: OR: Unable to determine H and P: Syncope Assessment and Plan: Multiple falls secondary to neurological vs. cardiac vs. infection/dehydration. - Neurology Consult - Carotid Duplex - Fall precautions Status: Acute Neurology note: syncopal episode and was found to be dehydrated and acute on chronic kidney injury. Carotid Doppler showed hemodynamic stenosis both in the internal carotids, severe on the right and critical on the left. She is not on any antiplatelet drugs. She was also dehydrated and had transient drop in her systolic and diastolic blood pressures. Overall, her syncopal event is likely multifactorial related secondary to a vasovagal event from underlying acute on chronic kidney injury from dehydration in addition to transient cerebral hypoperfusion to the brain from low systolic and diastolic blood pressures and carotid artery disease which is evident on carotid Doppler. At this time, her repeated falls and poor balance is secondary to diabetic peripheral neuropathy of uncontrolled diabetes Vascular Surgery progress note; admitted for syncope, found to have Carotid stenosis -MRA reviewed, Left w/ severe stenosis, 90%; 60-70% on the Right - Discussed Left CEA with patient and family member at bedside -Pt is considering surgery and wishes to think it over tonight This form is a permanent part of the medical record Clarification of your documentation is requested to better reflect the severity of illness and intensity of treatment of your patient. Indicators present [] Specify: [] [] Specify: [] [] Specify: [] [] Specify: [] Location in the medical record that reflects the above clinical findings: [] Treatment Provided: [] PHYSICIAN'S RESPONSE Based on your medical judgment of the clinical indicators outlined above please clarify the following: [] Practitioner response [] If unable to determine, please check the box, sign and date. Present On Admission (POA) Indicator: [] Present at the time of admission [] Not present at the time of admission [] Clinically Undetermined In responding to this query, please exercise your independent professional judgment. The fact that a question is asked does not imply that any particular answer is desired or expected. Thank you for your clarification on this documentation. If you have any questions please call. * Thank you, Sherry Betts RN BSN ext. #[phone] MTDD
--- NOTE | 2017-01-09 12:31 | CP.PCM.PN ---
<Tabitha Benavides - Last Filed: 01/09/17 12:54> Subjective - Date & Time of Evaluation Date of Evaluation: 01/09/17 Time of Evaluation: 07:00 - Subjective Subjective: Patient seen and examined at bedside with attending. Overnight events reviewed 56F has decided to undergo Lt CEA early next week. Currently she denies SOB, chest pain, dizziness. Objective - Vital Signs/Intake and Output Vital Signs (last 24 hours): Temp Pulse Resp BP Pulse Ox 36.9 C 69 18 129/70 98 01/09/17 08:35 01/09/17 08:35 01/09/17 08:35 01/09/17 08:35 01/09/17 08:35 - Medications Medications: Current Medications Dextrose (Dextrose 50% Inj) 0 ml IV STAT PRN; Protocol PRN Reason: Hyglycemia Protocol Dextrose (Glutose 15) 0 gm PO ONCE PRN; Protocol PRN Reason: Hypoglycemia Protocol Duloxetine HCl (Cymbalta) 60 mg PO HS [facility] Last Admin: 01/08/17 22:12 Dose: 60 mg Glucagon (Glucagen Diagnostic Kit) 0 mg IM STAT PRN; Protocol PRN Reason: Hypoglycemia Protocol Heparin Sodium (Porcine) (Heparin) 5,000 units SC Q8 [facility] PRN Reason: Protocol Last Admin: 01/09/17 09:12 Dose: 5,000 units Hydrochlorothiazide (Hydrodiuril) 25 mg PO DAILY [facility] Ceftriaxone Sodium 1 gm/ (Sodium Chloride) 100 mls @ 100 mls/hr IVPB DAILY [facility] Last Admin: 01/09/17 09:20 Dose: 100 mls/hr Insulin Detemir (Levemir) 30 units SC HS [facility] Last Admin: 01/08/17 22:13 Dose: 30 units Insulin Human Lispro (Humalog) 12 units SC AC [facility] Last Admin: 01/08/17 16:37 Dose: Not Given Insulin Human Lispro (Humalog) 0 units SC ACHS [facility] PRN Reason: Protocol Last Admin: 01/08/17 22:13 Dose: Not Given Lisinopril (Zestril) 20 mg PO DAILY [facility] Oxycodone/Acetaminophen (Percocet 5/325 Mg Tab) 1 tab PO Q6 PRN PRN Reason: Pain, severe (8-10) Stop: 01/10/17 01:49 Last Admin: 01/07/17 01:58 Dose: 1 tab Pravastatin Sodium (Pravachol) 40 mg PO HS [facility] Last Admin: 01/08/17 22:14 Dose: 40 mg Pregabalin (Lyrica) 100 mg PO TID [facility] Last Admin: 01/09/17 09:20 Dose: 100 mg Zolpidem Tartrate (Ambien) 5 mg PO HS PRN PRN Reason: Insomnia - Labs Labs: 01/07/17 05:30 01/08/17 06:15 PT 12.4 Seconds (9.8-13.1) 01/06/17 03:24 INR 1.1 (0.9-1.2) 01/06/17 03:24 APTT 36.5 Seconds (25.6-37.1) 01/06/17 03:24 - Constitutional Appears: Non-toxic, No Acute Distress - Head Exam Head Exam: NORMAL INSPECTION - Eye Exam Eye Exam: EOMI, PERRL - ENT Exam ENT Exam: Mucous Membranes Moist, Normal Exam - Respiratory Exam Respiratory Exam: Clear to Ausculation Bilateral, NORMAL BREATHING PATTERN. absent: Rales, Wheezes - Cardiovascular Exam Cardiovascular Exam: REGULAR RHYTHM. absent: JVD - Extremities Exam Extremities Exam: Normal Capillary Refill. absent: Pedal Edema - Neurological Exam Neurological Exam: Awake, Oriented x3 - Psychiatric Exam Psychiatric exam: Normal Affect, Normal Mood - Skin Skin Exam: Normal Color, Warm Assessment and Plan (1) Carotid artery stenosis Assessment & Plan: Vascular surgery early next week, requesting Cardiology clearance. - Cardiology Clearance (Dr Murillo): Echo, Stress Test Status: Acute (2) Syncope Assessment & Plan: MRA showing >90 Lt carotid occlusion and 60-70 Rt carotid stenosis. - Neurology Consult (Dr Bella): ASA, Plavix, Statin, Lyrica - Vascular Surgery Consult(Dr Duenas): Lt CEA early next week, clear for surgery - Fall precautions Status: Acute (3) UTI (urinary tract infection) Assessment & Plan: Sensitivities returned and sensitive to Zosyn so will d/c Rocephin and treat with Zosyn. - ID Consult (Dr Verde): Rocephin/Zosyn until sensitivities returned - Zosyn Q6H Status: Acute (4) DVT prophylaxis Assessment & Plan: Heparin 5,000U, SC, Q8H Status: Acute (5) Foot ulcer, right Assessment & Plan: Chronic, but foul odor and draining. - Podiatry consult - Awaiting official Foot X-rays read Status: Chronic (6) Diabetes Assessment & Plan: Better controlled. - Endocrinology Consult (Dr Ley): Levemir, HUmalog, SSI - Resume home medications except renal excreted - Hypoglycemic Bundle - Accu-checks - MOD CHO Status: Chronic (7) Hypertension Assessment & Plan: Chronic, stable. TED resolved -Resume home medications Status: Chronic <Pavel Willoughby - Last Filed: 01/10/17 13:26> Objective - Vital Signs/Intake and Output Vital Signs (last 24 hours): Temp Pulse Resp BP Pulse Ox 97.8 F 66 18 123/69 99 01/10/17 12:00 01/10/17 12:00 01/10/17 12:00 01/10/17 12:00 01/10/17 12:00 - Medications Medications: Current Medications Dextrose (Dextrose 50% Inj) 0 ml IV STAT PRN; Protocol PRN Reason: Hyglycemia Protocol Dextrose (Glutose 15) 0 gm PO ONCE PRN; Protocol PRN Reason: Hypoglycemia Protocol Duloxetine HCl (Cymbalta) 60 mg PO HS [facility] Last Admin: 01/09/17 22:23 Dose: 60 mg Glucagon (Glucagen Diagnostic Kit) 0 mg IM STAT PRN; Protocol PRN Reason: Hypoglycemia Protocol Heparin Sodium (Porcine) (Heparin) 5,000 units SC Q8 [facility] PRN Reason: Protocol Last Admin: 01/10/17 09:28 Dose: 5,000 units Hydrochlorothiazide (Hydrodiuril) 25 mg PO DAILY [facility] Ceftriaxone Sodium 1 gm/ (Sodium Chloride) 100 mls @ 100 mls/hr IVPB DAILY [facility] Last Admin: 01/10/17 09:36 Dose: 100 mls/hr Insulin Detemir (Levemir) 34 units SC HS [facility] Last Admin: 01/09/17 22:25 Dose: 34 units Insulin Human Lispro (Humalog) 0 units SC ACHS [facility] PRN Reason: Protocol Last Admin: 01/10/17 11:45 Dose: Not Given Insulin Human Lispro (Humalog) 14 units SC AC [facility] Last Admin: 01/10/17 11:45 Dose: 14 units Lisinopril (Zestril) 20 mg PO DAILY [facility] Pravastatin Sodium (Pravachol) 40 mg PO HS [facility] Last Admin: 01/09/17 22:27 Dose: 40 mg Pregabalin (Lyrica) 100 mg PO TID [facility] Last Admin: 01/10/17 09:35 Dose: 100 mg Zolpidem Tartrate (Ambien) 5 mg PO HS PRN PRN Reason: Insomnia - Labs Labs: 01/07/17 05:30 01/08/17 06:15 PT 12.4 Seconds (9.8-13.1) 01/06/17 03:24 INR 1.1 (0.9-1.2) 01/06/17 03:24 APTT 36.5 Seconds (25.6-37.1) 01/06/17 03:24 Assessment and Plan (1) Carotid artery stenosis Status: Acute (2) Syncope Status: Acute (3) Diabetes mellitus type 2 in obese Status: Acute (4) UTI (urinary tract infection) Status: Acute (5) Hyperlipidemia Status: Chronic (6) Hypertension Status: Chronic - Assessment and Plan (Free Text) Plan: I was present during evaluation and discussed with DR Benavides re plans of care and mgt Pavel Willoughby M.D.
--- NOTE | 2017-01-09 13:29 | PN ---
DATE: 01/09/2017 ROOM: 418 This is a 56-year-old female with recent uncontrolled type 2 insulin-requiring diabetes, presenting h ere with a syncopal episode and was evaluated to have a severe carotid stenosis and is also being fol lowed closely now for metabolic and diabetic management. Her oral intake is quite variable at this time with supervening glycemic fluctuations as noted today and the glucose values have ranged from 221-230 mg/dL. The latest chemistry showed an A1c of 9.7%, w hich is still elevated and indicative of suboptimal metabolic control of her diabetic condition. Her latest chemistry showed a BUN of 21, sodium 137, potassium 4.6, chloride 102, CO2 25, glucose 131 an d creatinine 0.9. Her TSH is 0.31, most likely indicative of the so-called acute sick euthyroid synd rula, which is transient and should expect recovery of the TSH value with clinical improvement thereo f. So at this time, we will modify her basal and bolus insulin regimen and increase the Lantus to 34 uni ts subQ at bedtime daily to start tonight. We will also continue the low-dose correction scale using Humalog insulin as given. Then, we will titrate her Humalog from 12 to 14 units subQ t.i.d. before meals as given. We will obtain serial chemistries and supplement accordingly as needed. We will fol low and advise accordingly. Mckenzie Ley MD cc: [id number] TT: 01/09/2017 13:28:48 Confirmation # [id number] Dictation # [id number]
--- NOTE | 2017-01-09 15:21 | CARD ---
APPROVED REPORT EXAM: Two-dimensional and M-mode echocardiogram with Doppler and color Doppler. Other Information Quality : GoodRhythm : NSR INDICATION Pre-Op 2D DIMENSIONS IVSd0.98 (0.7-1.1cm)LVDd4.55 (3.9-5.9cm) LVOT Diameter1.88 (1.8-2.4cm)PWd0.86 (0.7-1.1cm) IVSs1.34 (0.8-1.2cm)LVDs2.89 (2.5-4.0cm) FS (%) 36.6 %PWs1.19 (0.8-1.2cm) LVEF (%)55.0 (>50%) M-Mode DIMENSIONS Left Atrium (MM)4.78 (2.5-4.0cm)IVSd1.25 (0.7-1.1cm) Aortic Root3.06 (2.2-3.7cm)LVDd5.34 (4.0-5.6cm) Aortic Cusp Exc.1.78 (1.5-2.0cm)PWd1.28 (0.7-1.1cm) IVSs1.72 cmFS (%) 37 % LVDs3.34 (2.0-3.8cm)PWs1.75 cm Mitral Valve MV E Uxxecprr79.2cm/sMV DECEL [id number] A Uxcfuerm76.5cm/s MV BHD51xlO/A ratio0.8MVA (PHT)2.44cm2 TDI Lateral E' Peak V9.45cm/sMedial E' Peak V6.36cm/sE/Lateral E'8.1 E/Medial E'12.0 Pulmonary Valve PV Peak Anrpeiud443.5cm/s LEFT VENTRICLE The left ventricle is normal size. There is mild concentric left ventricular hypertrophy. The left ventricular function is normal. The left ventricular ejection fraction is within the normal range. There is normal LV segmental wall motion. Transmitral Doppler flow pattern is Grade I-abnormal relaxation pattern. RIGHT VENTRICLE The right ventricle is normal size. There is normal right ventricular wall thickness. The right ventricular systolic function is normal. ATRIA The left atrium is mildly dilated. The right atrium size is normal. AORTIC VALVE The aortic valve is moderately thickened. There is trace aortic regurgitation. There is no aortic valvular stenosis. MITRAL VALVE The mitral valve is mildly thickened. There is no mitral valve stenosis. There is no mitral valve regurgitation noted. TRICUSPID VALVE The tricuspid valve is normal in structure and function. There is no tricuspid valve regurgitation noted. PULMONIC VALVE The pulmonary valve is normal in structure and function. There is no pulmonic valvular regurgitation. GREAT VESSELS The aortic root is normal in size. The IVC is normal in size and collapses >50% with inspiration. PERICARDIAL EFFUSION There is a trace loculated anterior pericardial effusion. <Conclusion> The left ventricle is normal size. There is mild concentric left ventricular hypertrophy. The left ventricular function is normal. The left ventricular ejection fraction is within the normal range. There is normal LV segmental wall motion. Transmitral Doppler flow pattern is Grade I-abnormal relaxation pattern.
--- NOTE | 2017-01-09 16:53 | CP.PCM.CON ---
History of Present Illness - History of Present Illness History of Present Illness: I was asked to see patient by Case Pepper. Patient is a 56 year old female with PMH HTN, DM hypercholesterolemia who presents with syncope. The patient describes being at home when she suddenly passed out. The patient denies presecing palpitaitons or chest pain. Workup has revealed L carotid stenosis. The patient requires endarterectomy. She denies current chest pain. Review of Systems - Constitutional Constitutional: absent: As Per HPI, Anorexia, Chills, Daytime Sleepiness, Excessive Sweating, Fatigue, Fever, Frequent Falls, Headache, Increased Appetite , Lethargy, Malaise, Night Sweats, Snoring, Sleep Apnea, Weight Gain, Weight Loss, Weakness, Other - EENT Eyes: absent: As Per HPI, Blind Spots, Blurred Vision, Change in Vision, Decreased Night Vision, Diplopia, Discharge, Dry Eye, Exophthalmos, Floaters, Irritation, Itchy Eyes, Loss of Peripheral Vision, Pain, Photophobia, Requires Corrective Lenses, Sees Flashes, Spots in Vision, Tunnel Vision, Other Visual Disturbances, Loss of Vision, Other Ears: absent: As Per HPI, Decreased Hearing, Ear Discharge, Ear Pain, Tinnitus, Abnormal Hearing, Disequilibrium, Dizziness, Other Nose/Mouth/Throat: absent: As Per HPI, Epistaxis, Nasal Congestion, Nasal Discharge, Nasal Obstruction, Nasal Trauma, Nose Pain, Post Nasal Drip, Sinus Pain, Sinus Pressure, Bleeding Gums, Change in Voice, Dental Pain, Dry Mouth, Dysphagia, Halitosis, Hoarsness, Lip Swelling, Mouth Lesions, Mouth Pain, Odynophagia, Sore Throat, Throat Swelling, Tongue Swelling, Facial Pain, Neck Pain, Neck Mass, Other - Cardiovascular Cardiovascular: Syncope - Respiratory Respiratory: absent: As Per HPI, Cough, Dyspnea, Hemoptysis, Dyspnea on Exertion , Wheezing, Snoring, Stridor, Pain on Inspiration, Chest Congestion, Excessive Mucous Production, Change in Mucous Color, Pain with Coughing, Other - Gastrointestinal Gastrointestinal: absent: As Per HPI, Abdominal Pain, Belching, Bloating, Change in Bowel Habits, Change in Stool Character, Coffee Ground Emesis, Constipation, Cramping, Diarrhea, Dyspepsia, Dysphagia, Early Satiety, Excessive Flatus, Fecal Incontinence, Heartburn, Hematemesis, Hematochezia, Loose Stools, Melena, Nausea, Odynophagia, Temesmus, Vomiting, Other - Genitourinary Genitourinary: absent: As Per HPI, Change in Urinary Stream, Difficulty Urinating, Dysuria, Flank Pain, Hematuria, Pyuria, Nocturia, Urinary Incontinence, Urinary Frequency, Urinary Hesitance, Urinary Urgency, Voiding Freq/Small Amts, Freq UTI, Hx Renal/Bladder Calculi, Hx /Renal Surgery, Bladder Distension, Other - Musculoskeletal Musculoskeletal: absent: As Per HPI, Abnormal Gait, Arthralgias, Atrophy, Back Pain, Deformity, Joint Swelling, Limited Range of Motion, Loss of Height, Muscle Cramps, Muscle Weakness, Myalgias, Neck Pain, Numbness, Radiating Pain into Limb, Stiffness, Tingling, Other - Integumentary Integumentary: absent: As Per HPI, Acne, Alopecia, Bleeding Lesions, Change in Hair, Change in Nails, Change in Pigmentation, Changing Lesions, Dry Skin, Erythema, Furuncle, Hirsutism, Lesions, New Lesions, Non-Healing Lesions, Photosensitivity, Pruritus, Rash, Skin Pain, Skin Ulcer, Sores, Striae, Swelling , Unusual Bruising, Wounds, Jaundice, Other - Neurological Neurological: absent: As Per HPI, Abnormal Gait, Abnormal Hearing, Abnormal Movements, Abnormal Speech, Behavioral Changes, Burning Sensations, Confusion, Convulsions, Disequilibrium, Dizziness, Numbness, Focal Weakness, Frequent Falls , Headaches, Lack of Coordination, Loss of Vision, Memory Loss, Paresthesias, Radicular Pain, Restless Legs, Sensory Deficit, Syncope, Tingling, Tremor, Vertigo, Weakness, Other Visual Disturbances, Other - Psychiatric Psychiatric: absent: As Per HPI, Abnormal Sleep Pattern, Anhedonia, Anxiety, Auditory Hallucinations, Behavioral Changes, Change in Appetite, Change in Libido, Confusion, Depression, Difficulty Concentrating, Hallucinations, Homicidal Ideation, Hopelessness, Irritability, Memory Loss, Mood Swings, Panic Attacks, Paranoia, Suicidal Ideation, Visual Hallucinations, Tactile Hallucinations, Other - Endocrine Endocrine: absent: As Per HPI, Change in Body Appearance, Change in Libido, Cold Intolorance, Deepening of Voice, Excessive Sweating, Fatigue, Flushing, Heat Intolorance, Increase in Ring/Shoe/Hat Size, Palpitations, Polydipsia, Polyphagia, Polyuria, Other - Hematologic/Lymphatic Hematologic: absent: As Per HPI, Easy Bleeding, Easy Bruising, Lymphadenopathy, Other Past Patient History - Infectious Disease Hx of Infectious Diseases: None - Past Medical History & Family History Past Medical History?: Yes Past Family History: Reviewed and not pertinent - Past Social History Smoking Status: Heavy Smoker > 10 Cigarettes Daily Alcohol: Occasional Drugs: Denies Home Situation {Lives}: With Family - CARDIAC Hx Congestive Heart Failure: Yes Hx Hypercholesterolemia: Yes Hx Hypertension: Yes - PULMONARY Hx Asthma: Yes - NEUROLOGICAL Hx Seizures: No - HEENT Hx HEENT Problems: No - RENAL Hx Chronic Kidney Disease: No - ENDOCRINE/METABOLIC Hx Endocrine Disorders: Yes Hx Diabetes Mellitus Type 2: Yes - HEMATOLOGICAL/ONCOLOGICAL Hx Human Immunodeficiency Virus (HIV): No - INTEGUMENTARY Hx Dermatological Problems: No - MUSCULOSKELETAL/RHEUMATOLOGICAL Hx Musculoskeletal Disorders: Yes - GASTROINTESTINAL Hx Gastrointestinal Disorders: No - GENITOURINARY/GYNECOLOGICAL Hx Sexually Transmitted Disorders: No - PSYCHIATRIC Hx Anxiety: Yes Hx Depression: Yes Hx Substance Use: No - SURGICAL HISTORY Hx Appendectomy: Yes Hx Cholecystectomy: Yes - ANESTHESIA Hx Anesthesia: Yes Hx Anesthesia Reactions: No Hx Malignant Hyperthermia: No Meds Allergies/Adverse Reactions: Allergies Allergy/AdvReac Type Severity Reaction Status Date / Time vancomycin AdvReac ITCHING Verified 05/22/16 13:09 - Medications Medications: Current Medications Dextrose (Dextrose 50% Inj) 0 ml IV STAT PRN; Protocol PRN Reason: Hyglycemia Protocol Dextrose (Glutose 15) 0 gm PO ONCE PRN; Protocol PRN Reason: Hypoglycemia Protocol Duloxetine HCl (Cymbalta) 60 mg PO HS [facility] Last Admin: 01/08/17 22:12 Dose: 60 mg Glucagon (Glucagen Diagnostic Kit) 0 mg IM STAT PRN; Protocol PRN Reason: Hypoglycemia Protocol Heparin Sodium (Porcine) (Heparin) 5,000 units SC Q8 [facility] PRN Reason: Protocol Last Admin: 01/09/17 16:29 Dose: 5,000 units Hydrochlorothiazide (Hydrodiuril) 25 mg PO DAILY [facility] Ceftriaxone Sodium 1 gm/ (Sodium Chloride) 100 mls @ 100 mls/hr IVPB DAILY [facility] Last Admin: 01/09/17 09:20 Dose: 100 mls/hr Insulin Detemir (Levemir) 34 units SC HS [facility] Insulin Human Lispro (Humalog) 0 units SC ACHS [facility] PRN Reason: Protocol Last Admin: 01/09/17 16:28 Dose: Not Given Insulin Human Lispro (Humalog) 14 units SC AC [facility] Last Admin: 01/09/17 16:29 Dose: 14 units Lisinopril (Zestril) 20 mg PO DAILY [facility] Oxycodone/Acetaminophen (Percocet 5/325 Mg Tab) 1 tab PO Q6 PRN PRN Reason: Pain, severe (8-10) Stop: 01/10/17 01:49 Last Admin: 01/07/17 01:58 Dose: 1 tab Pravastatin Sodium (Pravachol) 40 mg PO HS [facility] Last Admin: 01/08/17 22:14 Dose: 40 mg Pregabalin (Lyrica) 100 mg PO TID [facility] Last Admin: 01/09/17 16:33 Dose: 100 mg Zolpidem Tartrate (Ambien) 5 mg PO HS PRN PRN Reason: Insomnia Physical Exam - Constitutional Appears: Non-toxic - Head Exam Head Exam: NORMAL INSPECTION - Eye Exam Eye Exam: Normal appearance - ENT Exam ENT Exam: Mucous Membranes Moist - Neck Exam Neck exam: Positive for: Full Rom Additional comments: L carotid bruit - Respiratory Exam Respiratory Exam: NORMAL BREATHING PATTERN - Cardiovascular Exam Cardiovascular Exam: REGULAR RHYTHM - GI/Abdominal Exam GI & Abdominal Exam: Normal Bowel Sounds - Rectal Exam Rectal Exam: Deferred - Extremities Exam Extremities exam: Negative for: pedal edema - Back Exam Back exam: NORMAL INSPECTION - Neurological Exam Neurological exam: Alert, Oriented x3 - Psychiatric Exam Psychiatric exam: Normal Affect - Skin Skin Exam: Normal Color Results - Vital Signs Recent Vital Signs: Last Vital Signs Temp 97.8 F 01/09/17 16:09 Pulse 70 01/09/17 16:09 Resp 20 01/09/17 16:09 BP 117/66 01/09/17 16:09 Pulse Ox 98 01/09/17 16:09 - Labs Result Diagrams: 01/11/17 07:00 01/11/17 07:00 Labs: Laboratory Results - last 24 hr 01/08/17 01/09/17 01/09/17 21:24 05:22 11:35 POC Glucose (mg/dL) 223 H 221 H 230 H 01/09/17 16:23 POC Glucose (mg/dL) 126 H - EKG Data EKG Interpreted by: Myself Assessment & Plan (1) Carotid artery stenosis Assessment and Plan: patient will need risk assessment prior to surgery. She has significant cardiovascular risk factors. The patient will require stress test. Status: Acute (2) Diabetes Assessment and Plan: risk factors for CAD. Status: Chronic (3) Hyperlipidemia Assessment and Plan: statin therapy Status: Chronic (4) Hypertension Assessment and Plan: aggressive blood pressure control Status: Chronic
[2017-01-09] MEDS: Insulin Detemir 100 Units/ml Inj SC SCH (22:25)
[2017-01-09] MEDS: Pravastatin Sodium 40 MG TAB PO SCH (22:27)
[2017-01-10] MEDS: Insulin Lispro (humaLOG) 100 Units/ml Inj SC SCH ×7 (07:45→22:45)
--- NOTE | 2017-01-10 08:55 | CP.PCM.PN ---
Subjective - Date & Time of Evaluation Date of Evaluation: 01/10/17 Time of Evaluation: 05:55 - Subjective Subjective: SURGERY NOTE FOR DR. SALEH 56F seen and examined at bedside. No new complaints, denies pain, headache, lightheadness. Objective - Vital Signs/Intake and Output Vital Signs (last 24 hours): Temp Pulse Resp BP Pulse Ox 98.2 F 61 18 146/73 98 01/10/17 08:00 01/10/17 08:00 01/10/17 08:00 01/10/17 08:00 01/10/17 08:00 - Medications Medications: Current Medications Dextrose (Dextrose 50% Inj) 0 ml IV STAT PRN; Protocol PRN Reason: Hyglycemia Protocol Dextrose (Glutose 15) 0 gm PO ONCE PRN; Protocol PRN Reason: Hypoglycemia Protocol Duloxetine HCl (Cymbalta) 60 mg PO HS [facility] Last Admin: 01/09/17 22:23 Dose: 60 mg Glucagon (Glucagen Diagnostic Kit) 0 mg IM STAT PRN; Protocol PRN Reason: Hypoglycemia Protocol Heparin Sodium (Porcine) (Heparin) 5,000 units SC Q8 [facility] PRN Reason: Protocol Last Admin: 01/10/17 01:25 Dose: 5,000 units Hydrochlorothiazide (Hydrodiuril) 25 mg PO DAILY [facility] Ceftriaxone Sodium 1 gm/ (Sodium Chloride) 100 mls @ 100 mls/hr IVPB DAILY [facility] Last Admin: 01/09/17 09:20 Dose: 100 mls/hr Insulin Detemir (Levemir) 34 units SC HS [facility] Last Admin: 01/09/17 22:25 Dose: 34 units Insulin Human Lispro (Humalog) 0 units SC ACHS [facility] PRN Reason: Protocol Last Admin: 01/09/17 22:24 Dose: Not Given Insulin Human Lispro (Humalog) 14 units SC AC [facility] Last Admin: 01/09/17 16:29 Dose: 14 units Lisinopril (Zestril) 20 mg PO DAILY [facility] Pravastatin Sodium (Pravachol) 40 mg PO HS [facility] Last Admin: 01/09/17 22:27 Dose: 40 mg Pregabalin (Lyrica) 100 mg PO TID [facility] Last Admin: 01/09/17 16:33 Dose: 100 mg Zolpidem Tartrate (Ambien) 5 mg PO HS PRN PRN Reason: Insomnia - Labs Labs: 06/21/17 05:30 01/08/17 06:15 PT 12.4 Seconds (9.8-13.1) 01/06/17 03:24 INR 1.1 (0.9-1.2) 01/06/17 03:24 APTT 36.5 Seconds (25.6-37.1) 01/06/17 03:24 - Constitutional Appears: Non-toxic, No Acute Distress - Head Exam Head Exam: ATRAUMATIC - Respiratory Exam Respiratory Exam: Clear to Ausculation Bilateral, NORMAL BREATHING PATTERN - Cardiovascular Exam Cardiovascular Exam: REGULAR RHYTHM, +S1, +S2 - Neurological Exam Neurological Exam: Alert, Awake Assessment and Plan - Assessment and Plan (Free Text) Assessment: 56F with carotid stenosis - Plan for left Carotid Endarectomy next week - pending cardiac clearance Further recs discuss with Dr. Robin Robert, PGY1
[2017-01-10] MEDS: SILVASORB ANTIMICROBIAL WOUND GEL TP SCH (09:36)
--- NOTE | 2017-01-10 10:42 | CP.PCM.PN ---
Subjective - Date & Time of Evaluation Date of Evaluation: 01/10/17 Time of Evaluation: 07:50 - Subjective Subjective: 56 year old female patient with history of DM, osteomyelitis, CHF, HTN was seen and evaluated at bedside for chronic right plantar foot wound and left foot sub [address] Kaur. Patient is seen comfortable at bedside and is talkative today. She states that her pain has been the same at the plantar right foot. She admits to nausea but denies v/sob/cp/f or chills. No other pedal complaints at this time. Objective - Vital Signs/Intake and Output Vital Signs (last 24 hours): Temp Pulse Resp BP Pulse Ox 98.2 F 61 18 146/73 98 01/10/17 08:00 01/10/17 08:00 01/10/17 08:00 01/10/17 08:00 01/10/17 08:00 - Medications Medications: Current Medications Dextrose (Dextrose 50% Inj) 0 ml IV STAT PRN; Protocol PRN Reason: Hyglycemia Protocol Dextrose (Glutose 15) 0 gm PO ONCE PRN; Protocol PRN Reason: Hypoglycemia Protocol Duloxetine HCl (Cymbalta) 60 mg PO HS [facility] Last Admin: 01/09/17 22:23 Dose: 60 mg Glucagon (Glucagen Diagnostic Kit) 0 mg IM STAT PRN; Protocol PRN Reason: Hypoglycemia Protocol Heparin Sodium (Porcine) (Heparin) 5,000 units SC Q8 [facility] PRN Reason: Protocol Last Admin: 01/10/17 09:28 Dose: 5,000 units Hydrochlorothiazide (Hydrodiuril) 25 mg PO DAILY [facility] Ceftriaxone Sodium 1 gm/ (Sodium Chloride) 100 mls @ 100 mls/hr IVPB DAILY [facility] Last Admin: 01/10/17 09:36 Dose: 100 mls/hr Insulin Detemir (Levemir) 34 units SC HS [facility] Last Admin: 01/09/17 22:25 Dose: 34 units Insulin Human Lispro (Humalog) 0 units SC ACHS [facility] PRN Reason: Protocol Last Admin: 01/10/17 07:45 Dose: Not Given Insulin Human Lispro (Humalog) 14 units SC AC [facility] Last Admin: 01/10/17 08:00 Dose: 14 units Lisinopril (Zestril) 20 mg PO DAILY [facility] Pravastatin Sodium (Pravachol) 40 mg PO HS [facility] Last Admin: 01/09/17 22:27 Dose: 40 mg Pregabalin (Lyrica) 100 mg PO TID [facility] Last Admin: 01/10/17 09:35 Dose: 100 mg Zolpidem Tartrate (Ambien) 5 mg PO HS PRN PRN Reason: Insomnia - Labs Labs: 01/07/17 05:30 01/08/17 06:15 PT 12.4 Seconds (9.8-13.1) 01/06/17 03:24 INR 1.1 (0.9-1.2) 01/06/17 03:24 APTT 36.5 Seconds (25.6-37.1) 01/06/17 03:24 - Constitutional Appears: Well, Non-toxic, No Acute Distress - Extremities Exam Additional comments: Lower extremity focused exam: Vasc: DP/PT pulses palpable 1/4 b/l. TG WNL. No edema noted. No peripheral edema noted. Neuro: Gross sensation intact bilaterally. Derm: Right foot ulceration measuring approximately 3.5 x 2.5 x 0.4 cm. Wound base is 90% granular and 10% fibrotic. Wound edges are hyperkeratotic and intact. Wound exhibits no clinical signs of infection such as purulence, malodor , fluctuance. Wound does not probe to bone. No periwound erythema noted. Mild serous drainage. No tunneling. Ortho: Mild pain on palpation of the right plantar foot. Tenderness to palpation to left sub met 2 callus. - Neurological Exam Neurological Exam: Alert, Awake, Oriented x3 - Psychiatric Exam Psychiatric exam: Normal Affect, Normal Mood Assessment and Plan - Assessment and Plan (Free Text) Assessment: 56 y/o F with 1) chronic right foot ulceration (non-infected) and left sub met 2 callus secondary to diabetic neuropathy; 2) UTI Plan: Patient seen and evaluated at bedside with attending Dr. Kaur. Charts, labs, and vitals were reviewed: pt is afebrile Dressing applied: 4x4s, ABD, and kerlix No silvasorb at bedside, will resume silvasorb dressing tomorrow Will continue to monitor left sub met 2 callus while in house PWB right foot Waiting x-rays final report Order bilaterally arterial doppler for LLE Podiatry will continue to follow while in-house
--- NOTE | 2017-01-10 11:53 | PN ---
DATE: 01/10/2017 ROOM: 418. SUBJECTIVE: This is a 56-year-old female with recent uncontrolled type 2 insulin-requiring diabetes, presenting here with extremes of glycemic fluctuations from hypoglycemia to hyperglycemic accelerati ons and is now being followed closely for metabolic management. She also had a brief bout of syncope with significant recurrent bouts of near syncopal episodes and vascular testing showed the presence of severe carotid stenosis, and is being scheduled for possible surgical resection thereof. Her glyc emic levels are fluctuating, but much improved at this time and the latest glucose levels have ranged from 154-192 and 198 mg/dL. It was 126-230 last night as noted. Her latest chemistries showed a BU N of 21, sodium 137, potassium 4.6, chloride 102, CO2 of 25, glucose 131, and creatinine 0.9. Her A1 c is 9.7%, which is quite elevated and indicative of suboptimal metabolic control of her diabetic con dition. So at this time, we will modify her basal and bolus insulin regimen and increase the Levemir to 34 units subQ at bedtime daily as ordered. We will also increase the Humalog to 14 units subQ t. i.d. before meals as ordered. We will continue the low-dose correction scale using Humalog insulin a s given. We will obtain serial chemistries and supplement accordingly as needed. We will follow. Mckenzie Ley MD cc: [id number] TT: 01/10/2017 11:52:00 Confirmation # [id number] Dictation # [id number] ekta
--- NOTE | 2017-01-10 13:24 | CP.PCM.PN ---
Subjective - Date & Time of Evaluation Date of Evaluation: 01/07/17 Time of Evaluation: 09:30 - Subjective Subjective: Patient was noted to have improvent of renal function after hydration GFR now at 42 Has no fever accuchecks remain elevated. Objective - Vital Signs/Intake and Output Vital Signs (last 24 hours): Temp Pulse Resp BP Pulse Ox 97.8 F 66 18 123/69 99 01/10/17 12:00 01/10/17 12:00 01/10/17 12:00 01/10/17 12:00 01/10/17 12:00 - Medications Medications: Current Medications Dextrose (Dextrose 50% Inj) 0 ml IV STAT PRN; Protocol PRN Reason: Hyglycemia Protocol Dextrose (Glutose 15) 0 gm PO ONCE PRN; Protocol PRN Reason: Hypoglycemia Protocol Duloxetine HCl (Cymbalta) 60 mg PO HS [facility] Last Admin: 01/09/17 22:23 Dose: 60 mg Glucagon (Glucagen Diagnostic Kit) 0 mg IM STAT PRN; Protocol PRN Reason: Hypoglycemia Protocol Heparin Sodium (Porcine) (Heparin) 5,000 units SC Q8 [facility] PRN Reason: Protocol Last Admin: 01/10/17 09:28 Dose: 5,000 units Hydrochlorothiazide (Hydrodiuril) 25 mg PO DAILY [facility] Ceftriaxone Sodium 1 gm/ (Sodium Chloride) 100 mls @ 100 mls/hr IVPB DAILY [facility] Last Admin: 01/10/17 09:36 Dose: 100 mls/hr Insulin Detemir (Levemir) 34 units SC HS [facility] Last Admin: 01/09/17 22:25 Dose: 34 units Insulin Human Lispro (Humalog) 0 units SC ACHS [facility] PRN Reason: Protocol Last Admin: 01/10/17 11:45 Dose: Not Given Insulin Human Lispro (Humalog) 14 units SC AC [facility] Last Admin: 01/10/17 11:45 Dose: 14 units Lisinopril (Zestril) 20 mg PO DAILY [facility] Pravastatin Sodium (Pravachol) 40 mg PO HS [facility] Last Admin: 01/09/17 22:27 Dose: 40 mg Pregabalin (Lyrica) 100 mg PO TID [facility] Last Admin: 01/10/17 09:35 Dose: 100 mg Zolpidem Tartrate (Ambien) 5 mg PO HS PRN PRN Reason: Insomnia - Labs Labs: 01/07/17 05:30 01/08/17 06:15 PT 12.4 Seconds (9.8-13.1) 01/06/17 03:24 INR 1.1 (0.9-1.2) 01/06/17 03:24 APTT 36.5 Seconds (25.6-37.1) 01/06/17 03:24 - Head Exam Head Exam: NORMAL INSPECTION - Eye Exam Eye Exam: Normal appearance - ENT Exam ENT Exam: Mucous Membranes Moist - Respiratory Exam Respiratory Exam: Decreased Breath Sounds, Rales - Cardiovascular Exam Cardiovascular Exam: REGULAR RHYTHM - GI/Abdominal Exam GI & Abdominal Exam: Normal Bowel Sounds - Neurological Exam Neurological Exam: Awake, Oriented x3 - Psychiatric Exam Psychiatric exam: Normal Mood Assessment and Plan (1) Carotid artery stenosis Status: Acute (2) Syncope Status: Acute (3) Diabetes mellitus type 2 in obese Status: Acute (4) UTI (urinary tract infection) Status: Acute (5) Hyperlipidemia Status: Chronic (6) Hypertension Status: Chronic - Assessment and Plan (Free Text) Plan: Contmeds cont tx Cont PT hydrate follow up with Dr Ley
--- NOTE | 2017-01-10 13:30 | CP.PCM.PN ---
Subjective - Date & Time of Evaluation Date of Evaluation: 01/10/17 Time of Evaluation: 13:28 - Subjective Subjective: Patient is doing a lot better She is scheduled for carotid surgery next week and for stress test Noted improvement of renal function back to normal. Objective - Vital Signs/Intake and Output Vital Signs (last 24 hours): Temp Pulse Resp BP Pulse Ox 97.8 F 66 18 123/69 99 01/10/17 12:00 01/10/17 12:00 01/10/17 12:00 01/10/17 12:00 01/10/17 12:00 - Medications Medications: Current Medications Dextrose (Dextrose 50% Inj) 0 ml IV STAT PRN; Protocol PRN Reason: Hyglycemia Protocol Dextrose (Glutose 15) 0 gm PO ONCE PRN; Protocol PRN Reason: Hypoglycemia Protocol Duloxetine HCl (Cymbalta) 60 mg PO HS [facility] Last Admin: 01/09/17 22:23 Dose: 60 mg Glucagon (Glucagen Diagnostic Kit) 0 mg IM STAT PRN; Protocol PRN Reason: Hypoglycemia Protocol Heparin Sodium (Porcine) (Heparin) 5,000 units SC Q8 [facility] PRN Reason: Protocol Last Admin: 01/10/17 09:28 Dose: 5,000 units Hydrochlorothiazide (Hydrodiuril) 25 mg PO DAILY [facility] Ceftriaxone Sodium 1 gm/ (Sodium Chloride) 100 mls @ 100 mls/hr IVPB DAILY [facility] Last Admin: 01/10/17 09:36 Dose: 100 mls/hr Insulin Detemir (Levemir) 34 units SC HS [facility] Last Admin: 01/09/17 22:25 Dose: 34 units Insulin Human Lispro (Humalog) 0 units SC ACHS [facility] PRN Reason: Protocol Last Admin: 01/10/17 11:45 Dose: Not Given Insulin Human Lispro (Humalog) 14 units SC AC [facility] Last Admin: 01/10/17 11:45 Dose: 14 units Lisinopril (Zestril) 20 mg PO DAILY [facility] Pravastatin Sodium (Pravachol) 40 mg PO HS [facility] Last Admin: 01/09/17 22:27 Dose: 40 mg Pregabalin (Lyrica) 100 mg PO TID [facility] Last Admin: 01/10/17 09:35 Dose: 100 mg Zolpidem Tartrate (Ambien) 5 mg PO HS PRN PRN Reason: Insomnia - Labs Labs: 01/07/17 05:30 01/08/17 06:15 PT 12.4 Seconds (9.8-13.1) 01/06/17 03:24 INR 1.1 (0.9-1.2) 01/06/17 03:24 APTT 36.5 Seconds (25.6-37.1) 01/06/17 03:24 - Head Exam Head Exam: NORMAL INSPECTION - Eye Exam Eye Exam: Normal appearance - ENT Exam ENT Exam: Mucous Membranes Moist - Respiratory Exam Respiratory Exam: Clear to Ausculation Bilateral - Cardiovascular Exam Cardiovascular Exam: REGULAR RHYTHM - GI/Abdominal Exam GI & Abdominal Exam: Normal Bowel Sounds Assessment and Plan (1) Carotid artery stenosis Status: Acute (2) Syncope Status: Acute (3) Diabetes mellitus type 2 in obese Status: Acute (4) UTI (urinary tract infection) Status: Acute (5) Hyperlipidemia Status: Chronic (6) Hypertension Status: Chronic - Assessment and Plan (Free Text) Plan: cont meds cont tx follow up stress test cont insulin.
[2017-01-10] MEDS: Insulin Detemir 100 Units/ml Inj SC SCH (22:43)
[2017-01-10] MEDS: Pravastatin Sodium 40 MG TAB PO SCH (22:44)
--- NOTE | 2017-01-11 06:56 | CP.PCM.PN ---
<Jas Robert - Last Filed: 01/11/17 06:56> Subjective - Date & Time of Evaluation Date of Evaluation: 01/11/17 Time of Evaluation: 06:55 - Subjective Subjective: SURGERY NOTE FOR DR. KELLY 56F seen and examined at bedside. Patient has no complaints. No new neurological deficits Objective - Vital Signs/Intake and Output Vital Signs (last 24 hours): Temp Pulse Resp BP Pulse Ox 97.8 F 59 L 19 133/74 97 01/11/17 01:00 01/10/17 23:45 01/10/17 23:45 01/10/17 23:45 01/10/17 23:45 - Medications Medications: Current Medications Dextrose (Dextrose 50% Inj) 0 ml IV STAT PRN; Protocol PRN Reason: Hyglycemia Protocol Dextrose (Glutose 15) 0 gm PO ONCE PRN; Protocol PRN Reason: Hypoglycemia Protocol Duloxetine HCl (Cymbalta) 60 mg PO [facility] Last Admin: 01/10/17 22:41 Dose: 60 mg Glucagon (Glucagen Diagnostic Kit) 0 mg IM STAT PRN; Protocol PRN Reason: Hypoglycemia Protocol Heparin Sodium (Porcine) (Heparin) 5,000 units SC Q8 [facility] PRN Reason: Protocol Last Admin: 01/11/17 01:25 Dose: 5,000 units Hydrochlorothiazide (Hydrodiuril) 25 mg PO DAILY [facility] Ceftriaxone Sodium 1 gm/ (Sodium Chloride) 100 mls @ 100 mls/hr IVPB DAILY [facility] Last Admin: 01/10/17 09:36 Dose: 100 mls/hr Insulin Detemir (Levemir) 34 units SC [facility] Last Admin: 01/10/17 22:43 Dose: 34 units Insulin Human Lispro (Humalog) 0 units SC ACHS [facility] PRN Reason: Protocol Last Admin: 01/10/17 22:45 Dose: Not Given Insulin Human Lispro (Humalog) 14 units SC AC [facility] Last Admin: 01/10/17 17:00 Dose: 14 units Lisinopril (Zestril) 20 mg PO DAILY [facility] Pravastatin Sodium (Pravachol) 40 mg PO HS [facility] Last Admin: 01/10/17 22:44 Dose: 40 mg Pregabalin (Lyrica) 100 mg PO TID [facility] Last Admin: 01/10/17 16:58 Dose: 100 mg Zolpidem Tartrate (Ambien) 5 mg PO HS PRN PRN Reason: Insomnia - Labs Labs: 01/07/17 05:30 01/08/17 06:15 PT 12.4 Seconds (9.8-13.1) 01/06/17 03:24 INR 1.1 (0.9-1.2) 01/06/17 03:24 APTT 36.5 Seconds (25.6-37.1) 01/06/17 03:24 - Constitutional Appears: Non-toxic, No Acute Distress - Respiratory Exam Respiratory Exam: Clear to Ausculation Bilateral, NORMAL BREATHING PATTERN - Cardiovascular Exam Cardiovascular Exam: REGULAR RHYTHM, +S1, +S2 - GI/Abdominal Exam GI & Abdominal Exam: Soft. absent: Distended, Firm, Guarding, Rigid, Tenderness , Rebound - Neurological Exam Neurological Exam: Alert, Awake Assessment and Plan - Assessment and Plan (Free Text) Assessment: 56F with carotid stenosis - Plan for left Carotid Endarectomy Thursday - pending cardiac clearance, stress test Thursday Further recs discuss with Dr. Robin Robert, PGY1 <Collin Kelly - Last Filed: 01/12/17 13:15> Objective - Vital Signs/Intake and Output Vital Signs (last 24 hours): Temp Pulse Resp BP Pulse Ox 98.2 F 79 20 126/70 99 01/12/17 11:45 01/12/17 11:45 01/12/17 08:45 01/12/17 11:45 01/12/17 12:06 - Medications Medications: Current Medications Dextrose (Dextrose 50% Inj) 0 ml IV STAT PRN; Protocol PRN Reason: Hyglycemia Protocol Dextrose (Glutose 15) 0 gm PO ONCE PRN; Protocol PRN Reason: Hypoglycemia Protocol Duloxetine HCl (Cymbalta) 60 mg PO HS [facility] Last Admin: 01/11/17 21:53 Dose: 60 mg Glucagon (Glucagen Diagnostic Kit) 0 mg IM STAT PRN; Protocol PRN Reason: Hypoglycemia Protocol Heparin Sodium (Porcine) (Heparin) 5,000 units SC Q8 [facility] PRN Reason: Protocol Last Admin: 01/12/17 08:58 Dose: 5,000 units Hydrochlorothiazide (Hydrodiuril) 25 mg PO DAILY [facility] Ceftriaxone Sodium 1 gm/ (Sodium Chloride) 100 mls @ 100 mls/hr IVPB DAILY [facility] Last Admin: 01/12/17 08:57 Dose: 100 mls/hr Clindamycin Phosphate 600 mg/ (Sodium Chloride) 54 mls @ 54 mls/hr IVPB Q8 [facility] Last Admin: 01/12/17 08:56 Dose: 54 mls/hr Insulin Detemir (Levemir) 34 units SC HS [facility] Last Admin: 01/11/17 21:53 Dose: 34 units Insulin Human Lispro (Humalog) 0 units SC ACHS [facility] PRN Reason: Protocol Last Admin: 01/12/17 13:11 Dose: Not Given Insulin Human Lispro (Humalog) 14 units SC AC [facility] Last Admin: 01/12/17 13:12 Dose: 14 units Lisinopril (Zestril) 20 mg PO DAILY [facility] Pravastatin Sodium (Pravachol) 40 mg PO HS [facility] Last Admin: 01/11/17 21:53 Dose: 40 mg Pregabalin (Lyrica) 100 mg PO Q8 [facility] Last Admin: 01/12/17 13:15 Dose: 100 mg Zolpidem Tartrate (Ambien) 5 mg PO HS PRN PRN Reason: Insomnia - Labs Labs: 01/12/17 12:27 01/12/17 12:27 PT 12.4 Seconds (9.8-13.1) 01/06/17 03:24 INR 1.1 (0.9-1.2) 01/06/17 03:24 APTT 36.5 Seconds (25.6-37.1) 01/06/17 03:24
--- NOTE | 2017-01-11 07:34 | CP.PCM.PN ---
Subjective - Date & Time of Evaluation Date of Evaluation: 01/10/17 Time of Evaluation: 13:00 - Subjective Subjective: no current chest pain Objective - Vital Signs/Intake and Output Vital Signs (last 24 hours): Temp Pulse Resp BP Pulse Ox 97.8 F 59 L 19 133/74 97 01/11/17 01:00 01/10/17 23:45 01/10/17 23:45 01/10/17 23:45 01/10/17 23:45 - Medications Medications: Current Medications Dextrose (Dextrose 50% Inj) 0 ml IV STAT PRN; Protocol PRN Reason: Hyglycemia Protocol Dextrose (Glutose 15) 0 gm PO ONCE PRN; Protocol PRN Reason: Hypoglycemia Protocol Duloxetine HCl (Cymbalta) 60 mg PO HS [facility] Last Admin: 01/10/17 22:41 Dose: 60 mg Glucagon (Glucagen Diagnostic Kit) 0 mg IM STAT PRN; Protocol PRN Reason: Hypoglycemia Protocol Heparin Sodium (Porcine) (Heparin) 5,000 units SC Q8 [facility] PRN Reason: Protocol Last Admin: 01/11/17 01:25 Dose: 5,000 units Hydrochlorothiazide (Hydrodiuril) 25 mg PO DAILY [facility] Ceftriaxone Sodium 1 gm/ (Sodium Chloride) 100 mls @ 100 mls/hr IVPB DAILY [facility] Last Admin: 01/10/17 09:36 Dose: 100 mls/hr Insulin Detemir (Levemir) 34 units SC HS [facility] Last Admin: 01/10/17 22:43 Dose: 34 units Insulin Human Lispro (Humalog) 0 units SC ACHS [facility] PRN Reason: Protocol Last Admin: 01/10/17 22:45 Dose: Not Given Insulin Human Lispro (Humalog) 14 units SC AC [facility] Last Admin: 01/10/17 17:00 Dose: 14 units Lisinopril (Zestril) 20 mg PO DAILY [facility] Pravastatin Sodium (Pravachol) 40 mg PO HS [facility] Last Admin: 01/10/17 22:44 Dose: 40 mg Pregabalin (Lyrica) 100 mg PO TID [facility] Last Admin: 01/10/17 16:58 Dose: 100 mg Zolpidem Tartrate (Ambien) 5 mg PO HS PRN PRN Reason: Insomnia - Labs Labs: 01/07/17 05:30 01/08/17 06:15 PT 12.4 Seconds (9.8-13.1) 01/06/17 03:24 INR 1.1 (0.9-1.2) 01/06/17 03:24 APTT 36.5 Seconds (25.6-37.1) 01/06/17 03:24 - Constitutional Appears: Non-toxic - Head Exam Head Exam: NORMAL INSPECTION - Eye Exam Eye Exam: Normal appearance - ENT Exam ENT Exam: Mucous Membranes Moist - Neck Exam Neck Exam: Full ROM - Respiratory Exam Respiratory Exam: NORMAL BREATHING PATTERN - Cardiovascular Exam Cardiovascular Exam: REGULAR RHYTHM - GI/Abdominal Exam GI & Abdominal Exam: Normal Bowel Sounds - Rectal Exam Rectal Exam: Deferred - Extremities Exam Extremities Exam: absent: Pedal Edema - Back Exam Back Exam: NORMAL INSPECTION - Neurological Exam Neurological Exam: Alert - Psychiatric Exam Psychiatric exam: Normal Affect - Skin Skin Exam: Normal Color Assessment and Plan (1) Carotid artery stenosis Assessment & Plan: for stress test prior to surgery Status: Acute (2) Hypertension Assessment & Plan: blood pressure control Status: Chronic (3) Hyperlipidemia Status: Chronic
[2017-01-11] MEDS: Insulin Lispro (humaLOG) 100 Units/ml Inj SC SCH ×7 (07:48→21:23)
[2017-01-11 08:08] LABS: ALBUMIN 3.7 g/dL (3.5-5.0); ALT/SGPT 48 U/L (9-52); AST/SGOT 41 U/L (14-36); BLOOD UREA NITROGEN 15 mg/dl (7-17); CALCIUM 9.4 mg/dL (8.4-10.2); GFR AFRICAN-AMERICAN > 60; GFR NON-AFRICAN AMERICAN > 60
[2017-01-11 08:09] LABS: BASO # 0.1 K/uL (0.0-0.2); BASO % 0.9 % (0.0-2.0); EOS # 0.1 K/uL (0.0-0.7); EOS % 1.1 % (0.0-4.0); HEMOGLOBIN 11.8 g/dL (12.0-16.0); LYMPH # 1.4 K/uL (1.0-4.3); LYMPH % 19.2 % (20.0-40.0); MEAN CELL VOLUME 92.2 fl (81.0-99.0); MEAN CORPUSCULAR HEMOGLOBIN 30.9 pg (27.0-31.0); MEAN CORPUSCULAR HGB CONC 33.5 g/dL (33.0-37.0); MEAN PLATELET VOLUME 9.3 fl (7.2-11.7); MONO # 0.7 K/uL (0.0-0.8); MONO % 9.6 % (0.0-10.0); NEUT % 69.2 % (50.0-75.0); NRBC % 0.1 % (0.0-0.0); RBC 3.82 Mil/uL (3.80-5.20); RED CELL DISTRIBUTION WIDTH 14.7 % (11.5-14.5); WHITE BLOOD COUNT 7.2 K/uL (4.8-10.8)
[2017-01-11 08:18] LABS: ALB/GLOB RATIO 0.8 (1.0-2.1)
--- NOTE | 2017-01-11 09:20 | PN ---
DATE: 01/11/2017 ROOM: 669 This is a 56-year-old female with recent uncontrolled type 2 insulin-requiring diabetes, now being fo llowed closely for metabolic management. She is undergoing cardiac and neurologic workup for a recen t syncopal episode and was evaluated to have a severe carotid stenosis as noted thereof. Her glycemi c levels are fluctuating, but much improved at this time and the latest glucose levels have ranged fr om 139-165 and 197 mg/dL. Her latest chemistries showed a BUN of 21, sodium 137, potassium 4.6, chlo ride 102, CO2 of 25, glucose 131, and creatinine 0.9. Her A1c is 9.7%. So, at this time, we will continue the same basal and bolus insulin regimen to allow for dose equilib ration and keep her on the Levemir given as 34 units subQ at bedtime daily as ordered. We will also continue the Humalog given as 14 units subQ t.i.d. before meals as given. We will titrate incrementa lly as indicated to optimize metabolic control. We will also continue the same low-dose correction s karol using Humalog insulin as given. We will follow. Mckenzie Ley MD cc: [phone] TT: 01/11/2017 09:19:51 Confirmation # [id number] Dictation # [id number]
[2017-01-11] MEDS: SILVASORB ANTIMICROBIAL WOUND GEL TP SCH ×2 (09:50→18:33)
--- NOTE | 2017-01-11 12:35 | CP.PCM.PN ---
Subjective - Date & Time of Evaluation Date of Evaluation: 01/11/17 Time of Evaluation: 09:50 - Subjective Subjective: 56 year old female patient with history of DM, osteomyelitis, CHF, HTN was seen and evaluated for chronic right plantar foot wound and left foot sub 2 callus. She is seen at bedside sitting comfortably. She is alert and oriented. She states she still has right foot pain. She denies n/v/sob/cp/f or chills. No other pedal complaints at this time. Objective - Vital Signs/Intake and Output Vital Signs (last 24 hours): Temp Pulse Resp BP Pulse Ox 97.8 F 67 18 143/71 99 01/11/17 07:55 01/11/17 07:55 01/11/17 07:55 01/11/17 07:55 01/11/17 07:55 - Medications Medications: Current Medications Dextrose (Dextrose 50% Inj) 0 ml IV STAT PRN; Protocol PRN Reason: Hyglycemia Protocol Dextrose (Glutose 15) 0 gm PO ONCE PRN; Protocol PRN Reason: Hypoglycemia Protocol Duloxetine HCl (Cymbalta) 60 mg PO [facility] Last Admin: 01/10/17 22:41 Dose: 60 mg Glucagon (Glucagen Diagnostic Kit) 0 mg IM STAT PRN; Protocol PRN Reason: Hypoglycemia Protocol Heparin Sodium (Porcine) (Heparin) 5,000 units SC Q8 [facility] PRN Reason: Protocol Last Admin: 01/11/17 09:52 Dose: 5,000 units Hydrochlorothiazide (Hydrodiuril) 25 mg PO DAILY [facility] Ceftriaxone Sodium 1 gm/ (Sodium Chloride) 100 mls @ 100 mls/hr IVPB DAILY [facility] Last Admin: 01/11/17 11:26 Dose: 100 mls/hr Insulin Detemir (Levemir) 34 units SC HS [facility] Last Admin: 01/10/17 22:43 Dose: 34 units Insulin Human Lispro (Humalog) 0 units SC ACHS [facility] PRN Reason: Protocol Last Admin: 01/11/17 11:47 Dose: Not Given Insulin Human Lispro (Humalog) 14 units SC AC [facility] Last Admin: 01/11/17 08:19 Dose: 14 units Lisinopril (Zestril) 20 mg PO DAILY [facility] Pravastatin Sodium (Pravachol) 40 mg PO [facility] Last Admin: 01/10/17 22:44 Dose: 40 mg Pregabalin (Lyrica) 100 mg PO TID [facility] Last Admin: 01/11/17 09:50 Dose: 100 mg Zolpidem Tartrate (Ambien) 5 mg PO HS PRN PRN Reason: Insomnia - Labs Labs: 01/11/17 07:00 01/11/17 07:00 PT 12.4 Seconds (9.8-13.1) 01/06/17 03:24 INR 1.1 (0.9-1.2) 01/06/17 03:24 APTT 36.5 Seconds (25.6-37.1) 01/06/17 03:24 - Constitutional Appears: Well, Non-toxic, No Acute Distress - Extremities Exam Additional comments: Lower extremity focused exam: Vasc: DP/PT pulses palpable 1/4 b/l. Temperature gradient is WNL. No edema noted b/l Neuro: Gross sensation intact bilaterally. Derm: Right foot ulceration measuring approximately 3.5 x 2.5 x 0.4 cm. Wound base is 90% granular and 10% fibrotic. Wound edges are hyperkeratotic and intact. No erythema noted, no purulence, no malodor, or no fluctuance. Mild serous drainage noted. Wound does not probe to bone. No tunneling noted Ortho: Mild pain on palpation of right foot. Tenderness to palpation to left sub met 2 callus. - Neurological Exam Neurological Exam: Alert, Awake, Oriented x3 - Psychiatric Exam Psychiatric exam: Normal Affect, Normal Mood Assessment and Plan - Assessment and Plan (Free Text) Assessment: 56 y/o F with 1) chronic right foot ulceration (non-infected) and left sub met 2 callus secondary to diabetic neuropathy; 2) UTI Plan: Patient seen and evaluated at bedside Charts, labs, and vitals were reviewed: pt is afebrile Plan discussed in details with Dr. Kaur Dressing applied: Silvasorb, 4x4s, ABD, and kerlix Will continue to monitor left sub met 2 callus while in house PWB right foot X-rays report- pending f/u bilaterally arterial doppler for LLE Podiatry will continue to follow while in-house
--- NOTE | 2017-01-11 14:53 | RAD ---
PROCEDURE: Bilateral feet 01/09/2017 HISTORY: Bilateral foot ulcerations COMPARISON: Comparison made with prior radiographs right foot 12/17/2016 and left foot 08/08 left foot findings: The current study re- demonstrates extensive postoperative changes including resection of the distal 1/2- -2/3 of the 1st metatarsal and possibly resection of the base of the proximal phalanx 1st toe. There is postoperative changes of the distal 2nd metatarsal with heterotopic and productive bone changes with apparent fusion of the distal lateral margin of the residual 1st metatarsal with the midshaft of the 2nd metatarsal. There may be fusion of the proximal and middle phalanges 2nd toe. There is penciling of the distal aspect of the 3rd metatarsal. The there also appears to be partial resection of the distal aspect proximal phalanx 3rd toe Apparent flexion deformities of wall of the digits are felt to be present as well. Mild diffuse soft tissue swelling. Posterior and plantar calcaneal enthesophytes are again noted. Impression: Extensive postoperative changes involving multiple digits as detailed above. Diffuse soft tissue swelling. Findings could represent cellulitis. Recommend followup MRI if necessary. See above discussion for additional details and findings. Right foot findings: Re- demonstrated is a large skin surface and subcutaneous defect along the lateral margin at the level of the base of the 5th metatarsal. . There may be early the demineralization and possibly cortical destructive changes of the base of the 5th metatarsal. Diffuse soft tissue swelling. Followup MRI recommended. . . Mild hallux valgus deformity with overgrowth of the head of the 1st metatarsal and DJD 1st MTP joint. There is also lateral subluxation of the distal phalanx 1st digit and questionable on blunting deformity of the distal tuft. Bulbous appearance of the distal aspect of the 2nd metatarsal with resection of the head of the 2nd metatarsal unchanged. Questionable fusion of the proximal and middle phalanges 2nd toe. There is penciling of the midshaft proximal phalanx of the 3rd toe with absence of the middle and distal phalanges. Probable postoperative changes distal aspect proximal phalanx of the 4th and 5th toes. Impression: Large defect involving the skin and subcutaneous tissues along the lateral margin of the right foot at the level of the base of the 5th metatarsal with what could represent early destructive changes of the base of the 5th metatarsal. Recommend followup MRI. Stable postoperative changes involving the remaining digits as described.
--- NOTE | 2017-01-11 18:14 | CP.PCM.PN ---
Subjective - Date & Time of Evaluation Date of Evaluation: 01/11/17 Time of Evaluation: 18:14 - Subjective Subjective: I D NOTE FOR CAROTID ENDARTERECTOMY CONTINUE CEFTRIAXONE ,WILL ADD CLINDAMYCIN FOR ADDITIONAL COVERAGE FOR PODIATRY ISSUES AND STAPH COVERAGE FOR PROCEDURE Objective - Vital Signs/Intake and Output Vital Signs (last 24 hours): Temp Pulse Resp BP Pulse Ox 98.1 F 70 18 137/67 99 01/11/17 15:31 01/11/17 15:31 01/11/17 15:31 01/11/17 15:31 01/11/17 15:31 - Medications Medications: Current Medications Dextrose (Dextrose 50% Inj) 0 ml IV STAT PRN; Protocol PRN Reason: Hyglycemia Protocol Dextrose (Glutose 15) 0 gm PO ONCE PRN; Protocol PRN Reason: Hypoglycemia Protocol Duloxetine HCl (Cymbalta) 60 mg PO HS [facility] Last Admin: 01/10/17 22:41 Dose: 60 mg Glucagon (Glucagen Diagnostic Kit) 0 mg IM STAT PRN; Protocol PRN Reason: Hypoglycemia Protocol Heparin Sodium (Porcine) (Heparin) 5,000 units SC Q8 [facility] PRN Reason: Protocol Last Admin: 01/11/17 17:06 Dose: 5,000 units Hydrochlorothiazide (Hydrodiuril) 25 mg PO DAILY [facility] Ceftriaxone Sodium 1 gm/ (Sodium Chloride) 100 mls @ 100 mls/hr IVPB DAILY [facility] Last Admin: 01/11/17 11:26 Dose: 100 mls/hr Insulin Detemir (Levemir) 34 units SC HS [facility] Last Admin: 01/10/17 22:43 Dose: 34 units Insulin Human Lispro (Humalog) 0 units SC ACHS [facility] PRN Reason: Protocol Last Admin: 01/11/17 11:47 Dose: Not Given Insulin Human Lispro (Humalog) 14 units SC AC [facility] Last Admin: 01/11/17 17:06 Dose: 14 units Lisinopril (Zestril) 20 mg PO DAILY [facility] Pravastatin Sodium (Pravachol) 40 mg PO HS [facility] Last Admin: 01/10/17 22:44 Dose: 40 mg Pregabalin (Lyrica) 100 mg PO TID [facility] Last Admin: 01/11/17 17:12 Dose: 100 mg Zolpidem Tartrate (Ambien) 5 mg PO HS PRN PRN Reason: Insomnia - Labs Labs: 06/25/17 07:00 01/11/17 07:00 PT 12.4 Seconds (9.8-13.1) 01/06/17 03:24 INR 1.1 (0.9-1.2) 01/06/17 03:24 APTT 36.5 Seconds (25.6-37.1) 01/06/17 03:24
[2017-01-11] MEDS: Insulin Detemir 100 Units/ml Inj SC SCH (21:53)
[2017-01-11] MEDS: Pravastatin Sodium 40 MG TAB PO SCH (21:53)
[2017-01-12] MEDS: Insulin Lispro (humaLOG) 100 Units/ml Inj SC SCH ×7 (07:33→21:33)
--- NOTE | 2017-01-12 07:59 | CP.PCM.PN ---
Objective - Vital Signs/Intake and Output Vital Signs (last 24 hours): Temp Pulse Resp BP Pulse Ox 97.8 F 63 18 137/71 99 01/12/17 00:37 01/12/17 00:37 01/12/17 00:37 01/12/17 00:37 01/12/17 00:37 - Medications Medications: Current Medications Dextrose (Dextrose 50% Inj) 0 ml IV STAT PRN; Protocol PRN Reason: Hyglycemia Protocol Dextrose (Glutose 15) 0 gm PO ONCE PRN; Protocol PRN Reason: Hypoglycemia Protocol Duloxetine HCl (Cymbalta) 60 mg PO HS [facility] Last Admin: 01/11/17 21:53 Dose: 60 mg Glucagon (Glucagen Diagnostic Kit) 0 mg IM STAT PRN; Protocol PRN Reason: Hypoglycemia Protocol Heparin Sodium (Porcine) (Heparin) 5,000 units SC Q8 [facility] PRN Reason: Protocol Last Admin: 01/12/17 01:07 Dose: 5,000 units Hydrochlorothiazide (Hydrodiuril) 25 mg PO DAILY [facility] Ceftriaxone Sodium 1 gm/ (Sodium Chloride) 100 mls @ 100 mls/hr IVPB DAILY [facility] Last Admin: 01/11/17 11:26 Dose: 100 mls/hr Clindamycin Phosphate 600 mg/ (Sodium Chloride) 54 mls @ 54 mls/hr IVPB Q8 [facility] Last Admin: 01/12/17 01:06 Dose: 54 mls/hr Insulin Detemir (Levemir) 34 units SC HS [facility] Last Admin: 01/11/17 21:53 Dose: 34 units Insulin Human Lispro (Humalog) 0 units SC ACHS [facility] PRN Reason: Protocol Last Admin: 01/12/17 07:38 Dose: Not Given Insulin Human Lispro (Humalog) 14 units SC AC [facility] Last Admin: 01/12/17 07:33 Dose: Not Given Lisinopril (Zestril) 20 mg PO DAILY [facility] Pravastatin Sodium (Pravachol) 40 mg PO HS [facility] Last Admin: 01/11/17 21:53 Dose: 40 mg Pregabalin (Lyrica) 100 mg PO Q8 [facility] Last Admin: 01/12/17 01:07 Dose: 100 mg Zolpidem Tartrate (Ambien) 5 mg PO HS PRN PRN Reason: Insomnia - Labs Labs: 01/11/17 07:00 01/11/17 07:00 PT 12.4 Seconds (9.8-13.1) 01/06/17 03:24 INR 1.1 (0.9-1.2) 01/06/17 03:24 APTT 36.5 Seconds (25.6-37.1) 01/06/17 03:24
--- NOTE | 2017-01-12 08:11 | CP.PCM.PN ---
Subjective - Date & Time of Evaluation Date of Evaluation: 01/12/17 Time of Evaluation: 08:07 - Subjective Subjective: 56 y/o female with PMHx of DM, osteomyelitis, CHF, and HTN seen at bedside for R chronic plantar wound and L submet callus. Pt appears in NAD and is AAOx3. Pt denies of any acute overnight events. Pt denies of any F/N/V/C/SOB. Pt's dressing is clean, dry and intact. Objective - Vital Signs/Intake and Output Vital Signs (last 24 hours): Temp Pulse Resp BP Pulse Ox 97.8 F 63 18 137/71 99 01/12/17 00:37 01/12/17 00:37 01/12/17 00:37 01/12/17 00:37 01/12/17 00:37 - Medications Medications: Current Medications Dextrose (Dextrose 50% Inj) 0 ml IV STAT PRN; Protocol PRN Reason: Hyglycemia Protocol Dextrose (Glutose 15) 0 gm PO ONCE PRN; Protocol PRN Reason: Hypoglycemia Protocol Duloxetine HCl (Cymbalta) 60 mg PO HS [facility] Last Admin: 01/11/17 21:53 Dose: 60 mg Glucagon (Glucagen Diagnostic Kit) 0 mg IM STAT PRN; Protocol PRN Reason: Hypoglycemia Protocol Heparin Sodium (Porcine) (Heparin) 5,000 units SC Q8 [facility] PRN Reason: Protocol Last Admin: 01/12/17 01:07 Dose: 5,000 units Hydrochlorothiazide (Hydrodiuril) 25 mg PO DAILY [facility] Ceftriaxone Sodium 1 gm/ (Sodium Chloride) 100 mls @ 100 mls/hr IVPB DAILY [facility] Last Admin: 01/11/17 11:26 Dose: 100 mls/hr Clindamycin Phosphate 600 mg/ (Sodium Chloride) 54 mls @ 54 mls/hr IVPB Q8 [facility] Last Admin: 01/12/17 01:06 Dose: 54 mls/hr Insulin Detemir (Levemir) 34 units SC HS [facility] Last Admin: 01/11/17 21:53 Dose: 34 units Insulin Human Lispro (Humalog) 0 units SC ACHS [facility] PRN Reason: Protocol Last Admin: 01/12/17 07:38 Dose: Not Given Insulin Human Lispro (Humalog) 14 units SC AC [facility] Last Admin: 01/12/17 07:33 Dose: Not Given Lisinopril (Zestril) 20 mg PO DAILY [facility] Pravastatin Sodium (Pravachol) 40 mg PO HS [facility] Last Admin: 01/11/17 21:53 Dose: 40 mg Pregabalin (Lyrica) 100 mg PO Q8 [facility] Last Admin: 01/12/17 01:07 Dose: 100 mg Zolpidem Tartrate (Ambien) 5 mg PO HS PRN PRN Reason: Insomnia - Labs Labs: 01/11/17 07:00 01/11/17 07:00 PT 12.4 Seconds (9.8-13.1) 01/06/17 03:24 INR 1.1 (0.9-1.2) 01/06/17 03:24 APTT 36.5 Seconds (25.6-37.1) 01/06/17 03:24 - Constitutional Appears: Well, Non-toxic, No Acute Distress - Extremities Exam Additional comments: VASC: DP/PT pulses 1/4 b/l, Temp gradient: warm to cool, no edema noted b/l DERM: Open ulceration on the right foot measuring approx. 3.5cm x 2.5cm x 0.4cm. Wound base appears to be 90% granular and 10% fibrotic. Wound edges are hyperkeratotic and intact. No tunneling, no probe to bone noted, no purulence, no malodor, no erythema NEURO: Grossly intact ORTHO: Mild pain on palpation of the R foot, mild tenderness to palpation to L sub met 2 callus - Neurological Exam Neurological Exam: Alert, Awake, Oriented x3 Assessment and Plan - Assessment and Plan (Free Text) Assessment: 56 y/o female with chronic R foot ulceration (non-infected) and left submet 2 callus secondary to neuropathy Plan: Patient seen and evaluated at bedside Plan discussed in details with attending Dr. Kaur Charts, labs, and vitals were reviewed: pt is afebrile Dressing applied: Silvasorb, 4x4s, and kerlix Will continue to monitor left sub met 2 callus while in house Pt to remain PWB right foot X-rays (radiology report): Large defect involving the skin and subcutaneous tissues along the lateral margin of the right foot at the level of the base of the 5th metatarsal with what could represent early destructive changes of the base of the 5th metatarsal. BL low ext dopplers completed, awaiting final report. Podiatry will continue to follow while in-house
[2017-01-12] MEDS: SILVASORB ANTIMICROBIAL WOUND GEL TP SCH ×2 (08:56→17:17)
--- NOTE | 2017-01-12 09:45 | CP.PCM.PN ---
<Jenny Mckeon - Last Filed: 01/12/17 09:46> Subjective - Date & Time of Evaluation Date of Evaluation: 01/12/17 Time of Evaluation: 07:10 - Subjective Subjective: Vascular surgery progress note Patient s/e at bedside this AM. NEAO. Patient denies any symptoms or concerns. States she is going for a cardiac stress test today Objective - Vital Signs/Intake and Output Vital Signs (last 24 hours): Temp Pulse Resp BP Pulse Ox 98 F 61 20 144/75 97 01/12/17 08:45 01/12/17 08:45 01/12/17 08:45 01/12/17 08:45 01/12/17 08:45 - Medications Medications: Current Medications Dextrose (Dextrose 50% Inj) 0 ml IV STAT PRN; Protocol PRN Reason: Hyglycemia Protocol Dextrose (Glutose 15) 0 gm PO ONCE PRN; Protocol PRN Reason: Hypoglycemia Protocol Duloxetine HCl (Cymbalta) 60 mg PO HS [facility] Last Admin: 01/11/17 21:53 Dose: 60 mg Glucagon (Glucagen Diagnostic Kit) 0 mg IM STAT PRN; Protocol PRN Reason: Hypoglycemia Protocol Heparin Sodium (Porcine) (Heparin) 5,000 units SC Q8 [facility] PRN Reason: Protocol Last Admin: 01/12/17 08:58 Dose: 5,000 units Hydrochlorothiazide (Hydrodiuril) 25 mg PO DAILY [facility] Ceftriaxone Sodium 1 gm/ (Sodium Chloride) 100 mls @ 100 mls/hr IVPB DAILY [facility] Last Admin: 01/12/17 08:57 Dose: 100 mls/hr Clindamycin Phosphate 600 mg/ (Sodium Chloride) 54 mls @ 54 mls/hr IVPB Q8 [facility] Last Admin: 01/12/17 08:56 Dose: 54 mls/hr Insulin Detemir (Levemir) 34 units SC HS [facility] Last Admin: 01/11/17 21:53 Dose: 34 units Insulin Human Lispro (Humalog) 0 units SC ACHS [facility] PRN Reason: Protocol Last Admin: 01/12/17 07:38 Dose: Not Given Insulin Human Lispro (Humalog) 14 units SC AC [facility] Last Admin: 01/12/17 07:33 Dose: Not Given Lisinopril (Zestril) 20 mg PO DAILY [facility] Pravastatin Sodium (Pravachol) 40 mg PO HS [facility] Last Admin: 01/11/17 21:53 Dose: 40 mg Pregabalin (Lyrica) 100 mg PO Q8 [facility] Last Admin: 01/12/17 08:50 Dose: Not Given Zolpidem Tartrate (Ambien) 5 mg PO HS PRN PRN Reason: Insomnia - Labs Labs: 01/11/17 07:00 01/11/17 07:00 PT 12.4 Seconds (9.8-13.1) 01/06/17 03:24 INR 1.1 (0.9-1.2) 01/06/17 03:24 APTT 36.5 Seconds (25.6-37.1) 01/06/17 03:24 - Constitutional Appears: Well, Non-toxic, No Acute Distress - Head Exam Head Exam: ATRAUMATIC, NORMOCEPHALIC - Eye Exam Eye Exam: Normal appearance. absent: Conjunctival injection, Scleral icterus - ENT Exam ENT Exam: Mucous Membranes Moist, Normal Oropharynx - Neck Exam Neck Exam: Normal Inspection - Respiratory Exam Respiratory Exam: NORMAL BREATHING PATTERN. absent: Accessory Muscle Use, Respiratory Distress - Cardiovascular Exam Cardiovascular Exam: RRR - GI/Abdominal Exam GI & Abdominal Exam: absent: Distended - Extremities Exam Additional comments: podiatry dressings c/d/i on R lower extremity - Neurological Exam Neurological Exam: Alert, Awake, Oriented x3 - Psychiatric Exam Psychiatric exam: Normal Affect, Normal Mood - Skin Skin Exam: Dry, Normal Color, Warm Assessment and Plan - Assessment and Plan (Free Text) Assessment: 56F with severe L carotid stenosis and moderate R carotid stenosis -F/u results of cardiac stress test today -Planning for Left carotid endarterectomy tomorrow pending cardiac clearance -Continue current medical management Discussed with Dr. Robin Mckeon, PGY1 <Collin Kelly - Last Filed: 01/12/17 13:15> Subjective - Subjective Subjective: Patient remained stable with no new issues or complaints. No new neurological symptoms reported. Cardiology clearance pending with stress test today. Vascular surgery plan is to proceed with left carotid endarterectomy on this week provided patient is cleared by Cardiology. Objective - Vital Signs/Intake and Output Vital Signs (last 24 hours): Temp Pulse Resp BP Pulse Ox 98.2 F 79 20 126/70 99 01/12/17 11:45 01/12/17 11:45 01/12/17 08:45 01/12/17 11:45 01/12/17 12:06 - Medications Medications: Current Medications Dextrose (Dextrose 50% Inj) 0 ml IV STAT PRN; Protocol PRN Reason: Hyglycemia Protocol Dextrose (Glutose 15) 0 gm PO ONCE PRN; Protocol PRN Reason: Hypoglycemia Protocol Duloxetine HCl (Cymbalta) 60 mg PO HS [facility] Last Admin: 01/11/17 21:53 Dose: 60 mg Glucagon (Glucagen Diagnostic Kit) 0 mg IM STAT PRN; Protocol PRN Reason: Hypoglycemia Protocol Heparin Sodium (Porcine) (Heparin) 5,000 units SC Q8 [facility] PRN Reason: Protocol Last Admin: 01/12/17 08:58 Dose: 5,000 units Hydrochlorothiazide (Hydrodiuril) 25 mg PO DAILY [facility] Ceftriaxone Sodium 1 gm/ (Sodium Chloride) 100 mls @ 100 mls/hr IVPB DAILY [facility] Last Admin: 01/12/17 08:57 Dose: 100 mls/hr Clindamycin Phosphate 600 mg/ (Sodium Chloride) 54 mls @ 54 mls/hr IVPB Q8 [facility] Last Admin: 01/12/17 08:56 Dose: 54 mls/hr Insulin Detemir (Levemir) 34 units SC HS [facility] Last Admin: 01/11/17 21:53 Dose: 34 units Insulin Human Lispro (Humalog) 0 units SC ACHS [facility] PRN Reason: Protocol Last Admin: 01/12/17 07:38 Dose: Not Given Insulin Human Lispro (Humalog) 14 units SC AC [facility] Last Admin: 01/12/17 07:33 Dose: Not Given Lisinopril (Zestril) 20 mg PO DAILY [facility] Pravastatin Sodium (Pravachol) 40 mg PO HS [facility] Last Admin: 01/11/17 21:53 Dose: 40 mg Pregabalin (Lyrica) 100 mg PO Q8 [facility] Last Admin: 01/12/17 01:07 Dose: 100 mg Zolpidem Tartrate (Ambien) 5 mg PO HS PRN PRN Reason: Insomnia - Labs Labs: 01/12/17 12:27 01/12/17 12:27 PT 12.4 Seconds (9.8-13.1) 01/06/17 03:24 INR 1.1 (0.9-1.2) 01/06/17 03:24 APTT 36.5 Seconds (25.6-37.1) 01/06/17 03:24
[2017-01-12] MEDS ORDERED: Aminophylline 25 mg/ml Inj ONE (10:18)
[2017-01-12 12:34] LABS: HEMOGLOBIN 11.7 g/dL (12.0-16.0); MEAN CELL VOLUME 92.3 fl (81.0-99.0); MEAN CORPUSCULAR HEMOGLOBIN 30.4 pg (27.0-31.0); MEAN CORPUSCULAR HGB CONC 32.9 g/dL (33.0-37.0); RBC 3.85 Mil/uL (3.80-5.20); RED CELL DISTRIBUTION WIDTH 14.8 % (11.5-14.5); WHITE BLOOD COUNT 8.1 K/uL (4.8-10.8)
[2017-01-12 12:53] LABS: ALBUMIN 3.9 g/dL (3.5-5.0); ALT/SGPT 59 U/L (9-52); AST/SGOT 42 U/L (14-36); BLOOD UREA NITROGEN 18 mg/dl (7-17); CALCIUM 9.4 mg/dL (8.4-10.2); GFR AFRICAN-AMERICAN > 60; GFR NON-AFRICAN AMERICAN > 60
[2017-01-12 13:02] LABS: ALB/GLOB RATIO 0.9 (1.0-2.1)
--- NOTE | 2017-01-12 16:19 | CARD ---
APPROVED REPORT Protocol: LEXISCAN Test Type: Stress Nuclear Medications: Cymbalta 60mg, Heparin 5,000units, Hydrochlorothiazide 25mg, Insulin Livemir 30 units, Humalog 12 uni Lisinopril 20mg, Percocet Pravastatin 40mg Pregabalin 100mg, Zolpidern 5mg Medical History: Diabetes, Asthma, Anxiety, Appendectomy, cholecystectomy, smoker, Carotid artery stenosis, Target HR: 163 bpm Resting ECG: normal Resting Heart Rate: 57 bpm Resting Blood Pressure: 143/63mmHg submaximum (85%): 139 bpm TEST SUMMARY [id number]. [id number]/[id number]. INJECTIONNS FLUSH00:[id number]/64.0. INJECTIONNUC MED00:[id number]/54.0. [id number]/58.0. PROCEDURE Pharmacologic stress testing was performed using 0.4mg per 5ml of regadenoson given intravenously over 7-10 seconds. POST EXERCISE Reason for Termination: completed the study Target HR: No Max HR: 66 bpm 51% of Maximum Predicted HR: 163 bpm Exercise duration: 01:00 min:sec, 0 Stage Exercise capacity: 1.0METs Max Blood Pressure: 143/63mmHg Blood Pressure response to exercise: pharmacological Heart Rate response to exercise: pharmacological Chest Pain: No, none Angina index: 0 Arrhythmia: No, none ST Change: No, none Deviation: 0 mm Clinical Indications Under Appropriate Use Criteria Pre-op evaluation for carotid surgery. Stress EKG Interpretation Normal pharmacological portion of the stress test. EXAM: Myocardial Perfusion REST/STRESS Image QualityGood Imaging Protocol The imaging protocol used to acquire images was Rest Tc-99m/stress Tc-99m 1 day Rest Spect myocardial perfusion imaging was performed in supine position 60 minutes following the injection of 10 mCi of Tc-99 Myoview. Time of rest injection: 8:00 Time of rest imagin:00 Time of stress injection: 10:45 Time of stress imagin:25 Gated Stress Spect was performed 130 minutes after intravenous Tc-99 Myoview injection. The images were gated to evaluate regional wall motion and calculate ventricular ejection fraction. NUCLEAR IMAGE INTERPRETATION The rest and stress images show normal perfusion, normal contraction and thickening. LV Perfusion The perfusion of the left ventricle was normal on the standard three tomographic images. Wall Motion normal LVEF of 72% CONCLUSION 1. The patient is a 56 year old female found to have significant carotid disease who is now having a pre-operative pharmacological stress test. She also has a history of hypertension, diabetes mellitus and asthma. Her medicines include lisinopril, HCTZ, heparin, insulin and pravastatin. The resting EKG shows normal sinus rhythm. The patient was hooked-up to a continuous equip tech and lexiscan at a dose of 0.4 mg/5ml was injected intravenously. The patient tolerated the lexiscan well without any chest pain or significant EKG changes. The vital signs were stable and there weren't any side effects from the lexiscan. The nuclear scans showed normal perfusion of the left ventricle. The LVEF on the gated study was 72%. 2. Impression: Negative pharmacological stress test for ischemia. LVEF of 72%. Recommendation medical treatment
--- NOTE | 2017-01-12 16:47 | PN ---
DATE: 01/12/2017 ROOM: 669 This is a 56-year-old female with recent uncontrolled type 2 insulin-requiring diabetes, presenting h ere with extremes of glycemic fluctuations and hypoglycemia ____ hyperglycemic accelerations as noted thereof. She has since then improved clinically and metabolically as noted thereof. Her latest keesha micheal showed a BUN of 15, sodium 139, potassium 4.4, chloride 104, CO2 of 26, glucose 133, and creat inine 0.9. So, at this time, we will continue the same basal and bolus insulin regimen to allow for dose equilib ration and keep her on the Humalog given as 14 units subQ t.i.d. before meals as ordered. We will co ntinue the Levemir given as 34 units subQ at bedtime daily as given. We will titrate incrementally a s indicated to optimize metabolic control. We will obtain serial chemistries and supplement accordin gly as needed. We will follow. Mckenzie Ley MD cc: [phone] TT: 01/12/2017 16:46:30 Confirmation # [id number] Dictation # [id number]
--- NOTE | 2017-01-12 19:50 | CP.PCM.PN ---
Subjective - Date & Time of Evaluation Date of Evaluation: 01/12/17 Time of Evaluation: 19:45 - Subjective Subjective: nuclear stress test performed. There is no evidence of myocardial ischemia. There is no cardiovascular contraindication to vascular surgery. Objective - Vital Signs/Intake and Output Vital Signs (last 24 hours): Temp Pulse Resp BP Pulse Ox 98.6 F 62 20 136/75 96 01/12/17 16:34 01/12/17 16:34 01/12/17 16:34 01/12/17 16:34 01/12/17 16:34 - Medications Medications: Current Medications Dextrose (Dextrose 50% Inj) 0 ml IV STAT PRN; Protocol PRN Reason: Hyglycemia Protocol Dextrose (Glutose 15) 0 gm PO ONCE PRN; Protocol PRN Reason: Hypoglycemia Protocol Duloxetine HCl (Cymbalta) 60 mg PO HS [facility] Last Admin: 01/11/17 21:53 Dose: 60 mg Glucagon (Glucagen Diagnostic Kit) 0 mg IM STAT PRN; Protocol PRN Reason: Hypoglycemia Protocol Heparin Sodium (Porcine) (Heparin) 5,000 units SC Q8 [facility] PRN Reason: Protocol Last Admin: 01/12/17 17:18 Dose: 5,000 units Hydrochlorothiazide (Hydrodiuril) 25 mg PO DAILY [facility] Ceftriaxone Sodium 1 gm/ (Sodium Chloride) 100 mls @ 100 mls/hr IVPB DAILY [facility] Last Admin: 01/12/17 08:57 Dose: 100 mls/hr Clindamycin Phosphate 600 mg/ (Sodium Chloride) 54 mls @ 54 mls/hr IVPB Q8 [facility] Last Admin: 01/12/17 17:16 Dose: 54 mls/hr Insulin Detemir (Levemir) 34 units SC HS [facility] Last Admin: 01/11/17 21:53 Dose: 34 units Insulin Human Lispro (Humalog) 0 units SC ACHS [facility] PRN Reason: Protocol Last Admin: 01/12/17 17:18 Dose: Not Given Insulin Human Lispro (Humalog) 14 units SC AC [facility] Last Admin: 01/12/17 17:18 Dose: 14 units Lisinopril (Zestril) 20 mg PO DAILY [facility] Pravastatin Sodium (Pravachol) 40 mg PO HS [facility] Last Admin: 01/11/17 21:53 Dose: 40 mg Pregabalin (Lyrica) 100 mg PO Q8 [facility] Last Admin: 01/12/17 17:16 Dose: 100 mg Zolpidem Tartrate (Ambien) 5 mg PO HS PRN PRN Reason: Insomnia - Labs Labs: 01/12/17 12:27 01/12/17 12:27 PT 12.4 Seconds (9.8-13.1) 01/06/17 03:24 INR 1.1 (0.9-1.2) 01/06/17 03:24 APTT 36.5 Seconds (25.6-37.1) 01/06/17 03:24 Assessment and Plan (1) Carotid artery stenosis Status: Acute (2) Hypertension Status: Chronic (3) Hyperlipidemia Status: Chronic
[2017-01-12] MEDS: Insulin Detemir 100 Units/ml Inj SC SCH (21:40)
[2017-01-12] MEDS: Pravastatin Sodium 40 MG TAB PO SCH (21:40)
--- NOTE | 2017-01-13 06:45 | CP.PCM.PN ---
Subjective - Date & Time of Evaluation Date of Evaluation: 01/13/17 Time of Evaluation: 06:42 - Subjective Subjective: 56 y/o female seen at bedside for R chronic plantar wound and L submet 2 callus. Patient is resting comfortably in bed. Pt appears in NAD and is AAOx3. Pt denies of any acute overnight events. Patient reports persistent persistent pain. Pt denies of any F/N/V/C/SOB. Pt's dressing is clean, dry and intact. Objective - Vital Signs/Intake and Output Vital Signs (last 24 hours): Temp Pulse Resp BP Pulse Ox 98 F 61 20 135/63 96 01/13/17 00:32 01/13/17 00:32 01/13/17 00:32 01/13/17 00:32 01/13/17 00:32 - Medications Medications: Current Medications Dextrose (Dextrose 50% Inj) 0 ml IV STAT PRN; Protocol PRN Reason: Hyglycemia Protocol Dextrose (Glutose 15) 0 gm PO ONCE PRN; Protocol PRN Reason: Hypoglycemia Protocol Duloxetine HCl (Cymbalta) 60 mg PO HS [facility] Last Admin: 01/12/17 21:40 Dose: 60 mg Glucagon (Glucagen Diagnostic Kit) 0 mg IM STAT PRN; Protocol PRN Reason: Hypoglycemia Protocol Heparin Sodium (Porcine) (Heparin) 5,000 units SC Q8 [facility] PRN Reason: Protocol Last Admin: 01/13/17 00:52 Dose: 5,000 units Hydrochlorothiazide (Hydrodiuril) 25 mg PO DAILY [facility] Ceftriaxone Sodium 1 gm/ (Sodium Chloride) 100 mls @ 100 mls/hr IVPB DAILY [facility] Last Admin: 01/12/17 08:57 Dose: 100 mls/hr Clindamycin Phosphate 600 mg/ (Sodium Chloride) 54 mls @ 54 mls/hr IVPB Q8 [facility] Last Admin: 01/13/17 00:52 Dose: 54 mls/hr Insulin Detemir (Levemir) 34 units SC HS [facility] Last Admin: 01/12/17 21:40 Dose: 34 units Insulin Human Lispro (Humalog) 0 units SC ACHS [facility] PRN Reason: Protocol Last Admin: 01/12/17 21:33 Dose: Not Given Insulin Human Lispro (Humalog) 14 units SC AC [facility] Last Admin: 01/12/17 17:18 Dose: 14 units Lisinopril (Zestril) 20 mg PO DAILY [facility] Pravastatin Sodium (Pravachol) 40 mg PO HS [facility] Last Admin: 01/12/17 21:40 Dose: 40 mg Pregabalin (Lyrica) 100 mg PO Q8 [facility] Last Admin: 01/13/17 00:52 Dose: 100 mg Zolpidem Tartrate (Ambien) 5 mg PO HS PRN PRN Reason: Insomnia - Labs Labs: 01/12/17 12:27 01/12/17 12:27 PT 12.4 Seconds (9.8-13.1) 01/06/17 03:24 INR 1.1 (0.9-1.2) 01/06/17 03:24 APTT 36.5 Seconds (25.6-37.1) 01/06/17 03:24 - Constitutional Appears: Well, Non-toxic, No Acute Distress - Extremities Exam Additional comments: VASC: DP/PT pulses 1/4 b/l, temperature gradient WNL, no edema noted b/l DERM: Open ulceration on the right foot measuring approx. 3.5cm x 2.5cm x 0.4cm. Wound base appears to be 90% granular and 10% fibrotic. Mild serous drainage noted. Wound edges are hyperkeratotic. No tunneling, no probe to bone noted, no purulence, no malodor, no erythema or clinical signs of infection noted. NEURO: Gross sensation diminished. ORTHO: Mild pain on palpation of the R foot, mild tenderness to palpation to L sub met 2 callus - Neurological Exam Neurological Exam: Alert, Awake, Oriented x3 - Psychiatric Exam Psychiatric exam: Normal Affect, Normal Mood Assessment and Plan - Assessment and Plan (Free Text) Assessment: 56 y/o female with chronic R foot ulceration (non-infected) and left submet 2 callus secondary to neuropathy Plan: Patient seen and evaluated at bedside Plan discussed in detail with attending Dr. Kaur Charts, labs, and vitals were reviewed: pt is afebrile, WBC WNL Dressing applied: Silvasorb, 4x4s, and kerlix Will continue to monitor left sub met 2 callus while in house Pt to remain PWB right foot X-rays (radiology report): Large defect involving the skin and subcutaneous tissues along the lateral margin of the right foot at the level of the base of the 5th metatarsal with what could represent early destructive changes of the base of the 5th metatarsal. BL low ext dopplers completed, awaiting final report. Podiatry will continue to follow while in-house
[2017-01-13] MEDS: Insulin Lispro (humaLOG) 100 Units/ml Inj SC SCH ×7 (07:23→21:32)
[2017-01-13 07:43] LABS: ALB/GLOB RATIO 0.9 (1.0-2.1); ALBUMIN 3.8 g/dL (3.5-5.0); ALT/SGPT 58 U/L (9-52); AST/SGOT 49 U/L (14-36); BLOOD UREA NITROGEN 18 mg/dl (7-17); CALCIUM 9.2 mg/dL (8.4-10.2); GFR AFRICAN-AMERICAN > 60; GFR NON-AFRICAN AMERICAN > 60
[2017-01-13 08:10] LABS: HEMOGLOBIN 12.1 g/dL (12.0-16.0); MEAN CELL VOLUME 93.7 fl (81.0-99.0); MEAN CORPUSCULAR HEMOGLOBIN 30.2 pg (27.0-31.0); MEAN CORPUSCULAR HGB CONC 32.2 g/dL (33.0-37.0); RED CELL DISTRIBUTION WIDTH 14.8 % (11.5-14.5); WHITE BLOOD COUNT 7.2 K/uL (4.8-10.8)
--- NOTE | 2017-01-13 09:00 | CP.PCM.PN ---
Subjective - Date & Time of Evaluation Date of Evaluation: 01/11/17 Time of Evaluation: 09:00 - Subjective Subjective: Patient remains stable Scheduled for stress test prior to surgery Has no chest pain or SOB. Objective - Vital Signs/Intake and Output Vital Signs (last 24 hours): Temp Pulse Resp BP Pulse Ox 98.4 F 58 L 20 144/70 97 01/13/17 08:36 01/13/17 08:36 01/13/17 08:36 01/13/17 08:36 01/13/17 08:36 - Medications Medications: Current Medications Dextrose (Dextrose 50% Inj) 0 ml IV STAT PRN; Protocol PRN Reason: Hyglycemia Protocol Dextrose (Glutose 15) 0 gm PO ONCE PRN; Protocol PRN Reason: Hypoglycemia Protocol Duloxetine HCl (Cymbalta) 60 mg PO HS [facility] Last Admin: 01/12/17 21:40 Dose: 60 mg Glucagon (Glucagen Diagnostic Kit) 0 mg IM STAT PRN; Protocol PRN Reason: Hypoglycemia Protocol Heparin Sodium (Porcine) (Heparin) 5,000 units SC Q8 [facility] PRN Reason: Protocol Last Admin: 01/13/17 00:52 Dose: 5,000 units Hydrochlorothiazide (Hydrodiuril) 25 mg PO DAILY [facility] Ceftriaxone Sodium 1 gm/ (Sodium Chloride) 100 mls @ 100 mls/hr IVPB DAILY [facility] Last Admin: 01/12/17 08:57 Dose: 100 mls/hr Clindamycin Phosphate 600 mg/ (Sodium Chloride) 54 mls @ 54 mls/hr IVPB Q8 [facility] Last Admin: 01/13/17 00:52 Dose: 54 mls/hr Insulin Detemir (Levemir) 34 units SC [facility] Last Admin: 01/12/17 21:40 Dose: 34 units Insulin Human Lispro (Humalog) 0 units SC ACHS [facility] PRN Reason: Protocol Last Admin: 01/13/17 07:23 Dose: Not Given Insulin Human Lispro (Humalog) 14 units SC AC [facility] Last Admin: 01/12/17 17:18 Dose: 14 units Lisinopril (Zestril) 20 mg PO DAILY [facility] Pravastatin Sodium (Pravachol) 40 mg PO HS [facility] Last Admin: 01/12/17 21:40 Dose: 40 mg Pregabalin (Lyrica) 100 mg PO Q8 [facility] Last Admin: 01/13/17 00:52 Dose: 100 mg Zolpidem Tartrate (Ambien) 5 mg PO HS PRN PRN Reason: Insomnia - Labs Labs: 01/13/17 07:00 01/13/17 07:00 PT 12.4 Seconds (9.8-13.1) 01/06/17 03:24 INR 1.1 (0.9-1.2) 01/06/17 03:24 APTT 36.5 Seconds (25.6-37.1) 01/06/17 03:24 - Head Exam Head Exam: NORMAL INSPECTION - Eye Exam Eye Exam: Normal appearance - ENT Exam ENT Exam: Mucous Membranes Moist - Respiratory Exam Respiratory Exam: Clear to Ausculation Bilateral - Cardiovascular Exam Cardiovascular Exam: REGULAR RHYTHM - GI/Abdominal Exam GI & Abdominal Exam: Normal Bowel Sounds Assessment and Plan (1) Carotid artery stenosis Status: Acute (2) Syncope Status: Acute (3) Diabetes mellitus type 2 in obese Status: Acute (4) UTI (urinary tract infection) Status: Acute (5) Hyperlipidemia Status: Chronic (6) Hypertension Status: Chronic - Assessment and Plan (Free Text) Plan: cont meds cont tx for stress test cont accucheck
--- NOTE | 2017-01-13 09:01 | CP.PCM.PN ---
Subjective - Date & Time of Evaluation Date of Evaluation: 01/12/17 Time of Evaluation: 08:00 - Subjective Subjective: Stable for stress test has no chest pain or SOB Objective - Vital Signs/Intake and Output Vital Signs (last 24 hours): Temp Pulse Resp BP Pulse Ox 98.4 F 58 L 20 144/70 97 01/13/17 08:36 01/13/17 08:36 01/13/17 08:36 01/13/17 08:36 01/13/17 08:36 - Medications Medications: Current Medications Dextrose (Dextrose 50% Inj) 0 ml IV STAT PRN; Protocol PRN Reason: Hyglycemia Protocol Dextrose (Glutose 15) 0 gm PO ONCE PRN; Protocol PRN Reason: Hypoglycemia Protocol Duloxetine HCl (Cymbalta) 60 mg PO HS [facility] Last Admin: 01/12/17 21:40 Dose: 60 mg Glucagon (Glucagen Diagnostic Kit) 0 mg IM STAT PRN; Protocol PRN Reason: Hypoglycemia Protocol Heparin Sodium (Porcine) (Heparin) 5,000 units SC Q8 [facility] PRN Reason: Protocol Last Admin: 01/13/17 00:52 Dose: 5,000 units Hydrochlorothiazide (Hydrodiuril) 25 mg PO DAILY [facility] Ceftriaxone Sodium 1 gm/ (Sodium Chloride) 100 mls @ 100 mls/hr IVPB DAILY [facility] Last Admin: 01/12/17 08:57 Dose: 100 mls/hr Clindamycin Phosphate 600 mg/ (Sodium Chloride) 54 mls @ 54 mls/hr IVPB Q8 [facility] Last Admin: 01/13/17 00:52 Dose: 54 mls/hr Insulin Detemir (Levemir) 34 units SC HS [facility] Last Admin: 01/12/17 21:40 Dose: 34 units Insulin Human Lispro (Humalog) 0 units SC ACHS [facility] PRN Reason: Protocol Last Admin: 01/13/17 07:23 Dose: Not Given Insulin Human Lispro (Humalog) 14 units SC AC [facility] Last Admin: 01/12/17 17:18 Dose: 14 units Lisinopril (Zestril) 20 mg PO DAILY [facility] Pravastatin Sodium (Pravachol) 40 mg PO HS [facility] Last Admin: 01/12/17 21:40 Dose: 40 mg Pregabalin (Lyrica) 100 mg PO Q8 [facility] Last Admin: 01/13/17 00:52 Dose: 100 mg Zolpidem Tartrate (Ambien) 5 mg PO HS PRN PRN Reason: Insomnia - Labs Labs: 01/13/17 07:00 01/13/17 07:00 PT 12.4 Seconds (9.8-13.1) 01/06/17 03:24 INR 1.1 (0.9-1.2) 01/06/17 03:24 APTT 36.5 Seconds (25.6-37.1) 01/06/17 03:24 - Head Exam Head Exam: NORMAL INSPECTION - Eye Exam Eye Exam: Normal appearance - ENT Exam ENT Exam: Mucous Membranes Moist - Respiratory Exam Respiratory Exam: Clear to Ausculation Bilateral - Cardiovascular Exam Cardiovascular Exam: REGULAR RHYTHM - GI/Abdominal Exam GI & Abdominal Exam: Normal Bowel Sounds - Neurological Exam Neurological Exam: Awake, CN II-XII Intact Assessment and Plan (1) Carotid artery stenosis Status: Acute (2) Syncope Status: Acute (3) Diabetes mellitus type 2 in obese Status: Acute (4) UTI (urinary tract infection) Status: Acute (5) Hyperlipidemia Status: Chronic (6) Hypertension Status: Chronic - Assessment and Plan (Free Text) Plan: Cont meds cont tx Cont accucheck
--- NOTE | 2017-01-13 09:04 | CP.PCM.PN ---
Subjective - Date & Time of Evaluation Date of Evaluation: 01/13/17 Time of Evaluation: 09:02 - Subjective Subjective: Patient remains stable Nuclear stress test was normal and was cleared for surgery by Dr Murillo Has been stable Surgery is scheduled for . recent labs showed normal lytes and CBC Objective - Vital Signs/Intake and Output Vital Signs (last 24 hours): Temp Pulse Resp BP Pulse Ox 98.4 F 58 L 20 144/70 97 01/13/17 08:36 01/13/17 08:36 01/13/17 08:36 01/13/17 08:36 01/13/17 08:36 - Medications Medications: Current Medications Dextrose (Dextrose 50% Inj) 0 ml IV STAT PRN; Protocol PRN Reason: Hyglycemia Protocol Dextrose (Glutose 15) 0 gm PO ONCE PRN; Protocol PRN Reason: Hypoglycemia Protocol Duloxetine HCl (Cymbalta) 60 mg PO HS [facility] Last Admin: 01/12/17 21:40 Dose: 60 mg Glucagon (Glucagen Diagnostic Kit) 0 mg IM STAT PRN; Protocol PRN Reason: Hypoglycemia Protocol Heparin Sodium (Porcine) (Heparin) 5,000 units SC Q8 [facility] PRN Reason: Protocol Last Admin: 01/13/17 00:52 Dose: 5,000 units Hydrochlorothiazide (Hydrodiuril) 25 mg PO DAILY [facility] Ceftriaxone Sodium 1 gm/ (Sodium Chloride) 100 mls @ 100 mls/hr IVPB DAILY [facility] Last Admin: 01/12/17 08:57 Dose: 100 mls/hr Clindamycin Phosphate 600 mg/ (Sodium Chloride) 54 mls @ 54 mls/hr IVPB Q8 [facility] Last Admin: 01/13/17 00:52 Dose: 54 mls/hr Insulin Detemir (Levemir) 34 units SC HS [facility] Last Admin: 01/12/17 21:40 Dose: 34 units Insulin Human Lispro (Humalog) 0 units SC ACHS [facility] PRN Reason: Protocol Last Admin: 01/13/17 07:23 Dose: Not Given Insulin Human Lispro (Humalog) 14 units SC AC [facility] Last Admin: 01/12/17 17:18 Dose: 14 units Lisinopril (Zestril) 20 mg PO DAILY [facility] Pravastatin Sodium (Pravachol) 40 mg PO [facility] Last Admin: 01/12/17 21:40 Dose: 40 mg Pregabalin (Lyrica) 100 mg PO Q8 [facility] Last Admin: 01/13/17 00:52 Dose: 100 mg Zolpidem Tartrate (Ambien) 5 mg PO HS PRN PRN Reason: Insomnia - Labs Labs: 01/13/17 07:00 01/13/17 07:00 PT 12.4 Seconds (9.8-13.1) 01/06/17 03:24 INR 1.1 (0.9-1.2) 01/06/17 03:24 APTT 36.5 Seconds (25.6-37.1) 01/06/17 03:24 - Head Exam Head Exam: NORMAL INSPECTION - Eye Exam Eye Exam: Normal appearance - Respiratory Exam Respiratory Exam: Clear to Ausculation Bilateral - Cardiovascular Exam Cardiovascular Exam: REGULAR RHYTHM - GI/Abdominal Exam GI & Abdominal Exam: Normal Bowel Sounds - Neurological Exam Neurological Exam: Awake, Oriented x3 - Psychiatric Exam Psychiatric exam: Normal Mood Assessment and Plan (1) Carotid artery stenosis Status: Acute (2) Syncope Status: Acute (3) Diabetes mellitus type 2 in obese Status: Acute (4) UTI (urinary tract infection) Status: Acute (5) Hyperlipidemia Status: Chronic (6) Hypertension Status: Chronic - Assessment and Plan (Free Text) Plan: Cont meds Con ttx Cont accuchceck
--- NOTE | 2017-01-13 10:15 | CP.PCM.PN ---
<Jenny Mckeon - Last Filed: 01/13/17 10:18> Subjective - Date & Time of Evaluation Date of Evaluation: 01/13/17 Time of Evaluation: 07:10 - Subjective Subjective: Patient seen and examined this AM. NAEO. Patient denies any pain, nausea, vomiting, or any other symptoms. Objective - Vital Signs/Intake and Output Vital Signs (last 24 hours): Temp Pulse Resp BP Pulse Ox 98.4 F 58 L 20 144/70 97 01/13/17 08:36 01/13/17 08:36 01/13/17 08:36 01/13/17 08:36 01/13/17 08:36 - Medications Medications: Current Medications Dextrose (Dextrose 50% Inj) 0 ml IV STAT PRN; Protocol PRN Reason: Hyglycemia Protocol Dextrose (Glutose 15) 0 gm PO ONCE PRN; Protocol PRN Reason: Hypoglycemia Protocol Duloxetine HCl (Cymbalta) 60 mg PO [facility] Last Admin: 01/12/17 21:40 Dose: 60 mg Glucagon (Glucagen Diagnostic Kit) 0 mg IM STAT PRN; Protocol PRN Reason: Hypoglycemia Protocol Heparin Sodium (Porcine) (Heparin) 5,000 units SC Q8 [facility] PRN Reason: Protocol Last Admin: 01/13/17 09:17 Dose: 5,000 units Hydrochlorothiazide (Hydrodiuril) 25 mg PO DAILY [facility] Ceftriaxone Sodium 1 gm/ (Sodium Chloride) 100 mls @ 100 mls/hr IVPB DAILY [facility] Last Admin: 01/13/17 09:21 Dose: 100 mls/hr Clindamycin Phosphate 600 mg/ (Sodium Chloride) 54 mls @ 54 mls/hr IVPB Q8 [facility] Last Admin: 01/13/17 09:15 Dose: 54 mls/hr Insulin Detemir (Levemir) 34 units SC HS [facility] Last Admin: 01/12/17 21:40 Dose: 34 units Insulin Human Lispro (Humalog) 0 units SC ACHS [facility] PRN Reason: Protocol Last Admin: 01/13/17 07:23 Dose: Not Given Insulin Human Lispro (Humalog) 14 units SC AC [facility] Last Admin: 01/13/17 09:18 Dose: 14 units Lisinopril (Zestril) 20 mg PO DAILY [facility] Pravastatin Sodium (Pravachol) 40 mg PO HS [facility] Last Admin: 01/12/17 21:40 Dose: 40 mg Pregabalin (Lyrica) 100 mg PO Q8 [facility] Last Admin: 01/13/17 09:24 Dose: 100 mg Zolpidem Tartrate (Ambien) 5 mg PO HS PRN PRN Reason: Insomnia - Labs Labs: 01/13/17 07:00 01/13/17 07:00 PT 12.4 Seconds (9.8-13.1) 01/06/17 03:24 INR 1.1 (0.9-1.2) 01/06/17 03:24 APTT 36.5 Seconds (25.6-37.1) 01/06/17 03:24 - Constitutional Appears: Well, Non-toxic, No Acute Distress - Head Exam Head Exam: ATRAUMATIC - Eye Exam Eye Exam: Normal appearance. absent: Conjunctival injection, Scleral icterus - ENT Exam ENT Exam: absent: Mucous Membranes Moist, Normal Oropharynx - Respiratory Exam Respiratory Exam: NORMAL BREATHING PATTERN. absent: Accessory Muscle Use, Respiratory Distress - Cardiovascular Exam Cardiovascular Exam: RRR. absent: JVD - GI/Abdominal Exam GI & Abdominal Exam: Soft. absent: Distended - Extremities Exam Extremities Exam: absent: Calf Tenderness, Pedal Edema, Tenderness Additional comments: right lower extremity with podiatry dressing c/d/i - Neurological Exam Neurological Exam: Alert, Awake, Oriented x3 - Psychiatric Exam Psychiatric exam: Normal Affect, Normal Mood - Skin Skin Exam: Dry, Intact, Normal Color, Warm Assessment and Plan - Assessment and Plan (Free Text) Assessment: 56F with severe L carotid stenosis and moderate R carotid stenosis -Cardiac stress test was negative -Follow up with cardiology for official cardiac risk evaluation -Planning for Left carotid endarterectomy this week. Date/Time yet to be determined -Continue current medical management Discussed with Dr. Robin Mckeon, PGY1 <Collin Kelly - Last Filed: 01/13/17 12:36> Subjective - Subjective Subjective: No new issues or complaints. Patient remains neurologically stable with no new issues. Continue supportive care. Patient is cleared by Cardiology for OR on . Plan for left carotid endarterectomy on January 15. Objective - Vital Signs/Intake and Output Vital Signs (last 24 hours): Temp Pulse Resp BP Pulse Ox 98.4 F 58 L 20 144/70 97 01/13/17 08:36 01/13/17 08:36 01/13/17 08:36 01/13/17 08:36 01/13/17 08:36 - Medications Medications: Current Medications Dextrose (Dextrose 50% Inj) 0 ml IV STAT PRN; Protocol PRN Reason: Hyglycemia Protocol Dextrose (Glutose 15) 0 gm PO ONCE PRN; Protocol PRN Reason: Hypoglycemia Protocol Duloxetine HCl (Cymbalta) 60 mg PO HS [facility] Last Admin: 01/12/17 21:40 Dose: 60 mg Glucagon (Glucagen Diagnostic Kit) 0 mg IM STAT PRN; Protocol PRN Reason: Hypoglycemia Protocol Heparin Sodium (Porcine) (Heparin) 5,000 units SC Q8 [facility] PRN Reason: Protocol Last Admin: 01/13/17 09:17 Dose: 5,000 units Hydrochlorothiazide (Hydrodiuril) 25 mg PO DAILY [facility] Ceftriaxone Sodium 1 gm/ (Sodium Chloride) 100 mls @ 100 mls/hr IVPB DAILY [facility] Last Admin: 01/13/17 09:21 Dose: 100 mls/hr Clindamycin Phosphate 600 mg/ (Sodium Chloride) 54 mls @ 54 mls/hr IVPB Q8 [facility] Last Admin: 01/13/17 09:15 Dose: 54 mls/hr Insulin Detemir (Levemir) 36 units SC HS [facility] Insulin Human Lispro (Humalog) 0 units SC ACHS [facility] PRN Reason: Protocol Last Admin: 01/13/17 07:23 Dose: Not Given Insulin Human Lispro (Humalog) 14 units SC AC [facility] Last Admin: 01/13/17 09:18 Dose: 14 units Lisinopril (Zestril) 20 mg PO DAILY [facility] Pravastatin Sodium (Pravachol) 40 mg PO HS [facility] Last Admin: 01/12/17 21:40 Dose: 40 mg Pregabalin (Lyrica) 100 mg PO Q8 [facility] Last Admin: 01/13/17 09:24 Dose: 100 mg Zolpidem Tartrate (Ambien) 5 mg PO HS PRN PRN Reason: Insomnia - Labs Labs: 01/13/17 07:00 01/13/17 07:00 PT 12.4 Seconds (9.8-13.1) 01/06/17 03:24 INR 1.1 (0.9-1.2) 01/06/17 03:24 APTT 36.5 Seconds (25.6-37.1) 01/06/17 03:24
[2017-01-13] MEDS ORDERED: Gadodiamide 287 MG/ML VIAL (15ML) IV ONE (16:19)
[2017-01-13] MEDS: Pravastatin Sodium 40 MG TAB PO SCH (22:23)
[2017-01-13] MEDS: Insulin Detemir 100 Units/ml Inj SC SCH (22:23)
[2017-01-14] MEDS: Insulin Lispro (humaLOG) 100 Units/ml Inj SC SCH ×7 (06:47→22:32)
--- NOTE | 2017-01-14 07:22 | CP.PCM.PN ---
<Terrance Panchal - Last Filed: 01/14/17 12:27> Subjective - Date & Time of Evaluation Date of Evaluation: 01/14/17 Time of Evaluation: 06:40 - Subjective Subjective: SURGERY NOTE FOR Patient seen and examined this AM. Patient is due for Left Carotid endarterectomy tomorrow by Dr. Kelly. Patient is aware of the surgery plan and agrees. Patient denies any pain, nausea, vomiting, or any other symptoms. Objective - Vital Signs/Intake and Output Vital Signs (last 24 hours): Temp Pulse Resp BP Pulse Ox 98.6 F 62 16 154/70 H 94 L 01/14/17 01:00 01/14/17 01:00 01/14/17 01:00 01/14/17 01:00 01/14/17 01:00 - Medications Medications: Current Medications Dextrose (Dextrose 50% Inj) 0 ml IV STAT PRN; Protocol PRN Reason: Hyglycemia Protocol Dextrose (Glutose 15) 0 gm PO ONCE PRN; Protocol PRN Reason: Hypoglycemia Protocol Duloxetine HCl (Cymbalta) 60 mg PO HS [facility] Last Admin: 01/13/17 22:23 Dose: 60 mg Glucagon (Glucagen Diagnostic Kit) 0 mg IM STAT PRN; Protocol PRN Reason: Hypoglycemia Protocol Heparin Sodium (Porcine) (Heparin) 5,000 units SC Q8 [facility] PRN Reason: Protocol Last Admin: 01/14/17 01:01 Dose: 5,000 units Hydrochlorothiazide (Hydrodiuril) 25 mg PO DAILY [facility] Ceftriaxone Sodium 1 gm/ (Sodium Chloride) 100 mls @ 100 mls/hr IVPB DAILY [facility] Last Admin: 01/13/17 09:21 Dose: 100 mls/hr Clindamycin Phosphate 600 mg/ (Sodium Chloride) 54 mls @ 54 mls/hr IVPB Q8 [facility] Last Admin: 01/14/17 01:01 Dose: 54 mls/hr Insulin Detemir (Levemir) 36 units SC HS [facility] Last Admin: 01/13/17 22:23 Dose: 36 units Insulin Human Lispro (Humalog) 0 units SC ACHS [facility] PRN Reason: Protocol Last Admin: 01/14/17 06:47 Dose: Not Given Insulin Human Lispro (Humalog) 14 units SC AC [facility] Last Admin: 01/13/17 17:36 Dose: 14 units Lisinopril (Zestril) 20 mg PO DAILY [facility] Pravastatin Sodium (Pravachol) 40 mg PO HS [facility] Last Admin: 01/13/17 22:23 Dose: 40 mg Pregabalin (Lyrica) 100 mg PO Q8 [facility] Last Admin: 01/14/17 01:01 Dose: 100 mg Zolpidem Tartrate (Ambien) 5 mg PO HS PRN PRN Reason: Insomnia - Labs Labs: 01/13/17 07:00 01/13/17 07:00 PT 12.4 Seconds (9.8-13.1) 01/06/17 03:24 INR 1.1 (0.9-1.2) 01/06/17 03:24 APTT 36.5 Seconds (25.6-37.1) 01/06/17 03:24 - Constitutional Appears: Well, Non-toxic, No Acute Distress - Extremities Exam Additional comments: right lower extremity dressing c/d/i - Neurological Exam Neurological Exam: Alert, Awake, Oriented x3 - Psychiatric Exam Psychiatric exam: Normal Affect, Normal Mood - Skin Skin Exam: Normal Color, Warm Assessment and Plan - Assessment and Plan (Free Text) Assessment: 56F with severe L carotid stenosis and moderate R carotid stenosis Plan: Cardiac stress test was negative Cleared by Cardiology for Left carotid endarterectomy tomorrow Keep NPO after midnight -Follow up with cardiology for official cardiac risk evaluation -Continue current medical management <Collin Kelly - Last Filed: 01/14/17 13:32> Subjective - Subjective Subjective: NO acute events. Patient remained stable. Left carotid endarterectomy is scheduled for tomorrow afternoon. Objective - Vital Signs/Intake and Output Vital Signs (last 24 hours): Temp Pulse Resp BP Pulse Ox 97.6 F 63 18 153/74 H 98 01/14/17 07:34 01/14/17 07:34 01/14/17 07:34 01/14/17 07:34 01/14/17 07:34 - Medications Medications: Current Medications Dextrose (Dextrose 50% Inj) 0 ml IV STAT PRN; Protocol PRN Reason: Hyglycemia Protocol Dextrose (Glutose 15) 0 gm PO ONCE PRN; Protocol PRN Reason: Hypoglycemia Protocol Duloxetine HCl (Cymbalta) 60 mg PO HS [facility] Last Admin: 01/13/17 22:23 Dose: 60 mg Glucagon (Glucagen Diagnostic Kit) 0 mg IM STAT PRN; Protocol PRN Reason: Hypoglycemia Protocol Heparin Sodium (Porcine) (Heparin) 5,000 units SC Q8 [facility] PRN Reason: Protocol Last Admin: 01/14/17 08:54 Dose: 5,000 units Hydrochlorothiazide (Hydrodiuril) 25 mg PO DAILY [facility] Ceftriaxone Sodium 1 gm/ (Sodium Chloride) 100 mls @ 100 mls/hr IVPB DAILY [facility] Last Admin: 01/14/17 08:52 Dose: 100 mls/hr Clindamycin Phosphate 600 mg/ (Sodium Chloride) 54 mls @ 54 mls/hr IVPB Q8 [facility] Last Admin: 01/14/17 10:39 Dose: 54 mls/hr Insulin Detemir (Levemir) 36 units SC HS [facility] Last Admin: 01/13/17 22:23 Dose: 36 units Insulin Human Lispro (Humalog) 0 units SC ACHS [facility] PRN Reason: Protocol Last Admin: 01/14/17 12:09 Dose: Not Given Insulin Human Lispro (Humalog) 14 units SC AC [facility] Last Admin: 01/14/17 12:59 Dose: 14 units Lisinopril (Zestril) 20 mg PO DAILY [facility] Pravastatin Sodium (Pravachol) 40 mg PO HS [facility] Last Admin: 01/13/17 22:23 Dose: 40 mg Pregabalin (Lyrica) 100 mg PO Q8 [facility] Last Admin: 01/14/17 08:58 Dose: 100 mg Zolpidem Tartrate (Ambien) 5 mg PO HS PRN PRN Reason: Insomnia - Labs Labs: 01/13/17 07:00 01/13/17 07:00 PT 12.4 Seconds (9.8-13.1) 01/06/17 03:24 INR 1.1 (0.9-1.2) 01/06/17 03:24 APTT 36.5 Seconds (25.6-37.1) 01/06/17 03:24
[2017-01-14] MEDS: SILVASORB ANTIMICROBIAL WOUND GEL TP SCH (08:53)
--- NOTE | 2017-01-14 08:59 | CP.PCM.PN ---
Subjective - Date & Time of Evaluation Date of Evaluation: 01/14/17 Time of Evaluation: 08:56 - Subjective Subjective: 56 y/o female seen at bedside for R chronic plantar wound and L submet 2 callus. Patient is resting comfortably in bed. Pt appears in NAD and is AAOx3. Pt denies of any acute overnight events. Patient reports persistent persistent pain at the plantar aspect of her left foot. Pt denies of any F/N/V/C/SOB/CP or chills. Pt's dressing is clean, dry and intact. Objective - Vital Signs/Intake and Output Vital Signs (last 24 hours): Temp Pulse Resp BP Pulse Ox 97.6 F 63 18 153/74 H 98 01/14/17 07:34 01/14/17 07:34 01/14/17 07:34 01/14/17 07:34 01/14/17 07:34 - Medications Medications: Current Medications Dextrose (Dextrose 50% Inj) 0 ml IV STAT PRN; Protocol PRN Reason: Hyglycemia Protocol Dextrose (Glutose 15) 0 gm PO ONCE PRN; Protocol PRN Reason: Hypoglycemia Protocol Duloxetine HCl (Cymbalta) 60 mg PO HS [facility] Last Admin: 01/13/17 22:23 Dose: 60 mg Glucagon (Glucagen Diagnostic Kit) 0 mg IM STAT PRN; Protocol PRN Reason: Hypoglycemia Protocol Heparin Sodium (Porcine) (Heparin) 5,000 units SC Q8 [facility] PRN Reason: Protocol Last Admin: 01/14/17 08:54 Dose: 5,000 units Hydrochlorothiazide (Hydrodiuril) 25 mg PO DAILY [facility] Ceftriaxone Sodium 1 gm/ (Sodium Chloride) 100 mls @ 100 mls/hr IVPB DAILY [facility] Last Admin: 01/14/17 08:52 Dose: 100 mls/hr Clindamycin Phosphate 600 mg/ (Sodium Chloride) 54 mls @ 54 mls/hr IVPB Q8 [facility] Last Admin: 01/14/17 01:01 Dose: 54 mls/hr Insulin Detemir (Levemir) 36 units SC HS [facility] Last Admin: 01/13/17 22:23 Dose: 36 units Insulin Human Lispro (Humalog) 0 units SC ACHS [facility] PRN Reason: Protocol Last Admin: 01/14/17 06:47 Dose: Not Given Insulin Human Lispro (Humalog) 14 units SC AC [facility] Last Admin: 01/14/17 08:53 Dose: 14 units Lisinopril (Zestril) 20 mg PO DAILY [facility] Pravastatin Sodium (Pravachol) 40 mg PO HS [facility] Last Admin: 01/13/17 22:23 Dose: 40 mg Pregabalin (Lyrica) 100 mg PO Q8 [facility] Last Admin: 01/14/17 01:01 Dose: 100 mg Zolpidem Tartrate (Ambien) 5 mg PO HS PRN PRN Reason: Insomnia - Labs Labs: 01/13/17 07:00 01/13/17 07:00 PT 12.4 Seconds (9.8-13.1) 01/06/17 03:24 INR 1.1 (0.9-1.2) 01/06/17 03:24 APTT 36.5 Seconds (25.6-37.1) 01/06/17 03:24 - Constitutional Appears: Well, Non-toxic, No Acute Distress - Extremities Exam Additional comments: VASC: DP/PT pulses 1/4 b/l, STE[employer]ER is <4 seconds, temperature gradient WNL, no edema noted b/l DERM: Open ulceration on the right foot measuring approx. 3.5cm x 2.5cm x 0.4cm. Wound base appears to be 80% granular and 20% fibrotic. Mild serous drainage noted from the right wound. Wound edges are hyperkeratotic. No tunneling, no probe to bone noted, no purulence, no malodor, no erythema or clinical signs of infection noted. NEURO: Gross sensation diminished. ORTHO: Mild pain on palpation of the R foot, mild tenderness to palpation to L sub met 2 callus - Neurological Exam Neurological Exam: Alert, Awake, Oriented x3 - Psychiatric Exam Psychiatric exam: Normal Affect, Normal Mood Assessment and Plan - Assessment and Plan (Free Text) Assessment: 56 y/o female with chronic R foot ulceration (non-infected) and left submet 2 callus secondary to neuropathy Plan: Patient seen and evaluated at bedside Plan seen with attending Dr. Kaur present. Charts and vitals were reviewed Dressing applied: Silvasorb, 4x4s, and kerlix Left foot sub-met 2 hyperkeratotic lesion debrided with sterile #15 blade, healthy skin revealed, no ulceration, tolerated without incident Will continue to monitor left sub met 2 callus while in house Pt to remain PWB right foot X-rays (radiology report): Large defect involving the skin and subcutaneous tissues along the lateral margin of the right foot at the level of the base of the 5th metatarsal with what could represent early destructive changes of the base of the 5th metatarsal. BL low ext dopplers completed, awaiting final report. MRI of Right foot: Bone marrow edema of 2-5 metatarsal bones, intermediate and lateral cuneiforms, cuboid, and navicular, tear of peroneal brevis tendon, significant soft tissue swelling base of 5th metatarsal. Podiatry will continue to follow while in-house
--- NOTE | 2017-01-14 09:56 | CP.PCM.PN ---
Subjective - Date & Time of Evaluation Date of Evaluation: 01/14/17 Time of Evaluation: 09:55 - Subjective Subjective: Patient is doing well Has no chest pain or SOB Afebrile Accuchecks are stable. Objective - Vital Signs/Intake and Output Vital Signs (last 24 hours): Temp Pulse Resp BP Pulse Ox 97.6 F 63 18 153/74 H 98 01/14/17 07:34 01/14/17 07:34 01/14/17 07:34 01/14/17 07:34 01/14/17 07:34 - Medications Medications: Current Medications Dextrose (Dextrose 50% Inj) 0 ml IV STAT PRN; Protocol PRN Reason: Hyglycemia Protocol Dextrose (Glutose 15) 0 gm PO ONCE PRN; Protocol PRN Reason: Hypoglycemia Protocol Duloxetine HCl (Cymbalta) 60 mg PO HS [facility] Last Admin: 01/13/17 22:23 Dose: 60 mg Glucagon (Glucagen Diagnostic Kit) 0 mg IM STAT PRN; Protocol PRN Reason: Hypoglycemia Protocol Heparin Sodium (Porcine) (Heparin) 5,000 units SC Q8 [facility] PRN Reason: Protocol Last Admin: 01/14/17 08:54 Dose: 5,000 units Hydrochlorothiazide (Hydrodiuril) 25 mg PO DAILY [facility] Ceftriaxone Sodium 1 gm/ (Sodium Chloride) 100 mls @ 100 mls/hr IVPB DAILY [facility] Last Admin: 01/14/17 08:52 Dose: 100 mls/hr Clindamycin Phosphate 600 mg/ (Sodium Chloride) 54 mls @ 54 mls/hr IVPB Q8 [facility] Last Admin: 01/14/17 01:01 Dose: 54 mls/hr Insulin Detemir (Levemir) 36 units SC HS [facility] Last Admin: 01/13/17 22:23 Dose: 36 units Insulin Human Lispro (Humalog) 0 units SC ACHS [facility] PRN Reason: Protocol Last Admin: 01/14/17 06:47 Dose: Not Given Insulin Human Lispro (Humalog) 14 units SC AC [facility] Last Admin: 01/14/17 08:53 Dose: 14 units Lisinopril (Zestril) 20 mg PO DAILY [facility] Pravastatin Sodium (Pravachol) 40 mg PO HS [facility] Last Admin: 01/13/17 22:23 Dose: 40 mg Pregabalin (Lyrica) 100 mg PO Q8 [facility] Last Admin: 01/14/17 08:58 Dose: 100 mg Zolpidem Tartrate (Ambien) 5 mg PO HS PRN PRN Reason: Insomnia - Labs Labs: 01/13/17 07:00 01/13/17 07:00 PT 12.4 Seconds (9.8-13.1) 01/06/17 03:24 INR 1.1 (0.9-1.2) 01/06/17 03:24 APTT 36.5 Seconds (25.6-37.1) 01/06/17 03:24 - Head Exam Head Exam: NORMAL INSPECTION - Eye Exam Eye Exam: Normal appearance - ENT Exam ENT Exam: Mucous Membranes Moist - Respiratory Exam Respiratory Exam: NORMAL BREATHING PATTERN - Cardiovascular Exam Cardiovascular Exam: REGULAR RHYTHM - GI/Abdominal Exam GI & Abdominal Exam: Normal Bowel Sounds - Neurological Exam Neurological Exam: Awake, Oriented x3 - Psychiatric Exam Psychiatric exam: Normal Mood Assessment and Plan (1) Carotid artery stenosis Status: Acute (2) Syncope Status: Acute (3) Diabetes mellitus type 2 in obese Status: Acute (4) UTI (urinary tract infection) Status: Acute (5) Hyperlipidemia Status: Chronic (6) Hypertension Status: Chronic - Assessment and Plan (Free Text) Plan: Cont meds cont tx medically stable for surgery cleared by Cradiology NPO post midnight
--- NOTE | 2017-01-14 11:48 | US ---
PROCEDURE: Duplex ultrasound of the bilateral lower extremity arteries. HISTORY: assess blood flow b/l COMPARISON: 05/22/2016 TECHNIQUE: Grayscale and duplex Doppler evaluation of the bilateral common femoral, superficial femoral, popliteal, posterior tibial and dorsalis pedis arteries was performed.. FINDINGS: RIGHT LOWER EXTREMITY: RIGHT COMMON FEMORAL ARTERY: Widely patent. Maximal flow velocity of 101 cm/s. RIGHT SUPERFICIAL FEMORAL ARTERY: Widely patent. Maximal flow velocity of 177 cm/s. RIGHT POPLITEAL ARTERY:Widely patent. Maximal flow velocity of 99 cm/s. RIGHT POSTERIOR TIBIAL ARTERY: Widely patent. Maximal flow velocity of 95 cm/s. RIGHT DORSALIS PEDIS ARTERY: Nondiagnostic assessment. Right ankle is bandaged. LEFT LOWER EXTREMITY: LEFT COMMON FEMORAL ARTERY: Widely patent. Maximal flow velocity of 116 cm/s. LEFT SUPERFICIAL FEMORAL ARTERY: Widely patent. Maximal flow velocity of 133 cm/s. LEFT POPLITEAL ARTERY:Widely patent. Maximal flow velocity of 85 cm/s. LEFT POSTERIOR TIBIAL ARTERY: Widely patent. Maximal flow velocity of 82 cm/s. LEFT DORSALIS PEDIS ARTERY: Widely patent. Maximal flow velocity of 72 cm/s. OTHER FINDINGS: None. IMPRESSION: Right lower extremity: No significant interval change compared to the prior examination(s). Monophasic waveform identified throughout the right lower extremity. Left lower extremity: No significant stenotic lesions. Biphasic and triphasic waveforms identified.
[2017-01-14] MEDS: Pravastatin Sodium 40 MG TAB PO SCH (22:35)
[2017-01-14] MEDS: Insulin Detemir 100 Units/ml Inj SC SCH (22:37)
[2017-01-15] MEDS ORDERED: Dextrose 5%/0.9% NS 1,000 ML IV SCH (06:00)
--- NOTE | 2017-01-15 06:44 | CP.PCM.PN ---
Subjective - Date & Time of Evaluation Date of Evaluation: 01/15/17 Time of Evaluation: 06:44 - Subjective Subjective: Patient seen and examined at bedside with attending 56F c/o nausea overnight, but thinks it may be due to being nervous. Otherwise , she denies SOB, chest pain, abdominal pain, dysuria. Objective - Vital Signs/Intake and Output Vital Signs (last 24 hours): Temp Pulse Resp BP Pulse Ox 36.8 C 61 20 155/75 H 96 01/15/17 00:29 01/15/17 00:29 01/15/17 00:29 01/15/17 00:29 01/15/17 00:29 - Medications Medications: Current Medications Dextrose (Dextrose 50% Inj) 0 ml IV STAT PRN; Protocol PRN Reason: Hyglycemia Protocol Dextrose (Glutose 15) 0 gm PO ONCE PRN; Protocol PRN Reason: Hypoglycemia Protocol Duloxetine HCl (Cymbalta) 60 mg PO [facility] Last Admin: 01/14/17 22:36 Dose: 60 mg Glucagon (Glucagen Diagnostic Kit) 0 mg IM STAT PRN; Protocol PRN Reason: Hypoglycemia Protocol Heparin Sodium (Porcine) (Heparin) 5,000 units SC Q8 [facility] PRN Reason: Protocol Last Admin: 01/14/17 16:43 Dose: 5,000 units Hydrochlorothiazide (Hydrodiuril) 25 mg PO DAILY [facility] Ceftriaxone Sodium 1 gm/ (Sodium Chloride) 100 mls @ 100 mls/hr IVPB DAILY [facility] Last Admin: 01/14/17 08:52 Dose: 100 mls/hr Clindamycin Phosphate 600 mg/ (Sodium Chloride) 54 mls @ 54 mls/hr IVPB Q8 [facility] Last Admin: 01/15/17 00:07 Dose: 54 mls/hr Dextrose/Sodium Chloride (Dextrose 5%/0.9% Ns 1000 Ml) 1,000 mls @ 80 mls/hr IV .[id number] [facility] Stop: 01/16/17 06:00 Last Admin: 01/15/17 05:17 Dose: 80 mls/hr Insulin Detemir (Levemir) 36 units SC [facility] Last Admin: 01/14/17 22:37 Dose: 36 units Insulin Human Lispro (Humalog) 0 units SC ACHS [facility] PRN Reason: Protocol Last Admin: 01/14/17 22:32 Dose: Not Given Insulin Human Lispro (Humalog) 14 units SC AC [facility] Last Admin: 01/14/17 16:51 Dose: 14 units Lisinopril (Zestril) 20 mg PO DAILY [facility] Pravastatin Sodium (Pravachol) 40 mg PO HS [facility] Last Admin: 01/14/17 22:35 Dose: 40 mg Pregabalin (Lyrica) 100 mg PO Q8 [facility] Last Admin: 01/15/17 00:10 Dose: Not Given Zolpidem Tartrate (Ambien) 5 mg PO HS PRN PRN Reason: Insomnia Last Admin: 01/14/17 22:35 Dose: 5 mg - Labs Labs: 01/13/17 07:00 01/13/17 07:00 PT 12.4 Seconds (9.8-13.1) 01/06/17 03:24 INR 1.1 (0.9-1.2) 01/06/17 03:24 APTT 36.5 Seconds (25.6-37.1) 01/06/17 03:24 - Constitutional Appears: Well, Non-toxic, No Acute Distress - Head Exam Head Exam: ATRAUMATIC, NORMAL INSPECTION - Eye Exam Eye Exam: EOMI, PERRL - ENT Exam ENT Exam: Mucous Membranes Moist, Normal Exam - Respiratory Exam Respiratory Exam: Clear to Ausculation Bilateral, NORMAL BREATHING PATTERN. absent: Rales, Wheezes - Cardiovascular Exam Cardiovascular Exam: REGULAR RHYTHM. absent: JVD - GI/Abdominal Exam GI & Abdominal Exam: Soft, Normal Bowel Sounds. absent: Tenderness - Extremities Exam Extremities Exam: Normal Capillary Refill. absent: Pedal Edema - Neurological Exam Neurological Exam: Alert, Awake, Oriented x3 - Psychiatric Exam Psychiatric exam: Normal Affect, Normal Mood - Skin Skin Exam: Normal Color Assessment and Plan (1) Carotid artery stenosis Assessment & Plan: LEFT CEA today, pt medically optimized. - NPO/IVF Status: Acute (2) Syncope Assessment & Plan: MRA showing >90 Lt carotid occlusion and 60-70 Rt carotid stenosis. Surgery today - Neurology Consult (Dr Bella): ASA, Plavix, Statin, Lyrica - Vascular Surgery Consult(Dr Duenas): Lt CEA today, optimized for surgery - Fall precautions Status: Acute (3) UTI (urinary tract infection) Assessment & Plan: Brooks-sensitive, patient de-escalated to Rocephin. - ID Consult (Dr Verde) appreciated - c/w Rocephin, Daily Status: Acute (4) DVT prophylaxis Assessment & Plan: Heparin 5,000U, SC, Q8H Status: Acute (5) Foot ulcer, right Assessment & Plan: Chronic. Imaging shows monophasic flow below knee in RLE - Podiatry managing - Awaiting MRI read - c/w Clindamycin as per ID Status: Chronic (6) Diabetes Assessment & Plan: Some improvement, but may benefit from re-starting PO hyperglycemics after surgery. - Endocrinology Consult (Dr Ley) appreciated: 34U Levemir, 14U Humalog, SSI - Resume all PO hyperglycemics after vasc surgery - Hypoglycemic Bundle - Accu-checks - MOD CHO Status: Chronic (7) Hypertension Assessment & Plan: Chronic, stable. -Resume home medications Status: Chronic
[2017-01-15 07:00] LABS: BLOOD UREA NITROGEN 15 mg/dl (7-17); CALCIUM 9.6 mg/dL (8.4-10.2); GFR AFRICAN-AMERICAN > 60; GFR NON-AFRICAN AMERICAN 57
[2017-01-15 07:07] LABS: BASO # 0.1 K/uL (0.0-0.2); BASO % 1.2 % (0.0-2.0); EOS # 0.1 K/uL (0.0-0.7); EOS % 1.2 % (0.0-4.0); HEMOGLOBIN 12.3 g/dL (12.0-16.0); LYMPH # 1.1 K/uL (1.0-4.3); LYMPH % 17.3 % (20.0-40.0); MEAN CELL VOLUME 93.4 fl (81.0-99.0); MEAN CORPUSCULAR HEMOGLOBIN 30.3 pg (27.0-31.0); MEAN CORPUSCULAR HGB CONC 32.4 g/dL (33.0-37.0); MEAN PLATELET VOLUME 9.6 fl (7.2-11.7); MONO # 0.6 K/uL (0.0-0.8); MONO % 9.3 % (0.0-10.0); NEUT # 4.6 K/uL (1.8-7.0); NRBC % 0.1 % (0.0-0.0); RBC 4.07 Mil/uL (3.80-5.20); RED CELL DISTRIBUTION WIDTH 14.7 % (11.5-14.5); WHITE BLOOD COUNT 6.5 K/uL (4.8-10.8)
[2017-01-15 07:22] LABS: PROTHROMBIN TIME 11.6 Seconds (9.8-13.1)
[2017-01-15 07:23] LABS: PARTIAL THROMBOPLASTIN TIME 41.5 Seconds (25.6-37.1)
--- NOTE | 2017-01-15 08:46 | CP.PCM.PN ---
Subjective - Date & Time of Evaluation Date of Evaluation: 01/15/17 Time of Evaluation: 07:35 - Subjective Subjective: 56 year old female patient seen at bedside this morning for R foot chronic plantar wound. Patient is resting comfortably, AAOx3 and NAD. Patient denies any pain to her R foot today. Patient states she currently has a headache and was nauseous overnight causing her to throw up, which she believes is from anxiety as she is nervous for her procedure today. Patient states she was given medications to alleviate the nausea. Patient denies F/D/C/SOB. No other pedal complaints at this time. Objective - Vital Signs/Intake and Output Vital Signs (last 24 hours): Temp Pulse Resp BP Pulse Ox 97.4 F L 62 18 178/76 H 93 L 01/15/17 08:00 01/15/17 08:00 01/15/17 08:00 01/15/17 08:00 01/15/17 08:00 - Medications Medications: Current Medications Dextrose (Dextrose 50% Inj) 0 ml IV STAT PRN; Protocol PRN Reason: Hyglycemia Protocol Dextrose (Glutose 15) 0 gm PO ONCE PRN; Protocol PRN Reason: Hypoglycemia Protocol Duloxetine HCl (Cymbalta) 60 mg PO HS [facility] Last Admin: 01/14/17 22:36 Dose: 60 mg Glucagon (Glucagen Diagnostic Kit) 0 mg IM STAT PRN; Protocol PRN Reason: Hypoglycemia Protocol Heparin Sodium (Porcine) (Heparin) 5,000 units SC Q8 [facility] PRN Reason: Protocol Last Admin: 01/14/17 16:43 Dose: 5,000 units Hydrochlorothiazide (Hydrodiuril) 25 mg PO DAILY [facility] Ceftriaxone Sodium 1 gm/ (Sodium Chloride) 100 mls @ 100 mls/hr IVPB DAILY [facility] Last Admin: 01/14/17 08:52 Dose: 100 mls/hr Clindamycin Phosphate 600 mg/ (Sodium Chloride) 54 mls @ 54 mls/hr IVPB Q8 [facility] Last Admin: 01/15/17 00:07 Dose: 54 mls/hr Dextrose/Sodium Chloride (Dextrose 5%/0.9% Ns 1000 Ml) 1,000 mls @ 80 mls/hr IV .[id number] [facility] Stop: 01/16/17 06:00 Last Admin: 01/15/17 05:17 Dose: 80 mls/hr Insulin Detemir (Levemir) 36 units SC HS [facility] Last Admin: 01/14/17 22:37 Dose: 36 units Insulin Human Lispro (Humalog) 0 units SC ACHS [facility] PRN Reason: Protocol Last Admin: 01/14/17 22:32 Dose: Not Given Insulin Human Lispro (Humalog) 14 units SC AC [facility] Last Admin: 01/14/17 16:51 Dose: 14 units Lisinopril (Zestril) 20 mg PO DAILY [facility] Lorazepam (Ativan) 1 mg IVP ONCE PRN PRN Reason: Anxiety Ondansetron HCl (Zofran Inj) 4 mg IVP Q4H PRN PRN Reason: Nausea/Vomiting Pravastatin Sodium (Pravachol) 40 mg PO HS [facility] Last Admin: 01/14/17 22:35 Dose: 40 mg Pregabalin (Lyrica) 100 mg PO Q8 [facility] Last Admin: 01/15/17 00:10 Dose: Not Given Zolpidem Tartrate (Ambien) 5 mg PO HS PRN PRN Reason: Insomnia Last Admin: 01/14/17 22:35 Dose: 5 mg - Labs Labs: 01/15/17 05:55 01/15/17 05:55 PT 11.6 Seconds (9.8-13.1) 01/15/17 05:55 INR 1.0 (0.9-1.2) 01/15/17 05:55 APTT 41.5 Seconds (25.6-37.1) H 01/15/17 05:55 - Constitutional Appears: Well, Non-toxic, No Acute Distress - Extremities Exam Additional comments: Vasc: DP and PT pulses palpable 1/4 b/l. CFT <4 seconds. TG warm to cool. No edema noted. Neuro: Gross sensation diminished. Derm: Ulceration noted to plantarlateral aspect of right foot measuring approximately 3.5 x 2.5 x 0.4 cm. Wound base appears to be 75% granular and 25% fibrotic with mild serous drainage noted and a hyperkeratotic rim. No tunneling , undermining, probe to bone, purulence, malodor, fluctuance noted. Ortho: No pain on palpation noted to plantarlateral R foot. - Neurological Exam Neurological Exam: Alert, Awake, Oriented x3 - Psychiatric Exam Psychiatric exam: Anxious Assessment and Plan - Assessment and Plan (Free Text) Assessment: 56 year old female with chronic R foot ulceration (non-infected) secondary to neuropathy Plan: Patient seen and evaluated at bedside. Discussed with attending, Dr. Kaur. Charts, labs, vitals reviewed: afebrile, WBC WNL. Silvasorb applied to R foot ulceration and dressed with adaptic, 4x4s, and kerlix. Patient to remain PWB to right foot. Lower extremity ultrasound results reviewed: - RLE: Monophasic waveform identified throughout the right lower extremity. - LLE: No significant stenotic lesions. Biphasic and triphasic waveforms identified. Patient is cleared by cardiology, scheduled to receive endarterectomy today. Patient is stable per podiatry Podiatry will continue to follow while-in house.
[2017-01-15] MEDS: Insulin Lispro (humaLOG) 100 Units/ml Inj SC SCH ×5 (08:50→22:30)
[2017-01-15] MEDS: SILVASORB ANTIMICROBIAL WOUND GEL TP SCH (09:46)
[2017-01-15] MEDS ORDERED: Absorbable Gelatin Sponge Size 100 ONE (11:50)
[2017-01-15] MEDS ORDERED: Protamine 50mg/5mL Inj IV ONE (11:50)
[2017-01-15] MEDS ORDERED: Remifentanil 2 MG PDS IV ONE (13:27)
[2017-01-15] MEDS ORDERED: Propofol 10 mg/ml Inj (20 ML) ONE ×2 (13:44→15:26)
[2017-01-15] MEDS ORDERED: ePHEDrine 50 mg/ml Inj ONE ×2 (13:45→13:57)
[2017-01-15] MEDS ORDERED: Succinylcholine 200 mg/10 ml Inj IV ONE (13:45)
[2017-01-15] MEDS ORDERED: Midazolam 2 MG/2 ML VIAL ONE (13:46)
[2017-01-15] MEDS ORDERED: Rocuronium 10 mg/ml (5 ml) ONE ×2 (13:46→13:58)
[2017-01-15] MEDS ORDERED: Phenylephrine 10 mg/ml Inj ONE (13:46)
[2017-01-15] MEDS ORDERED: Clindamycin 300 mg/2 ml Inj IVPB ONE (14:45)
--- NOTE | 2017-01-15 15:06 | MRI ---
MRI right foot History: Diabetic ulcer. Evaluate for osteomyelitis. Comparison: None available. Technique: Multi-echo multiplanar sequences were performed through the right foot without and with the use of intravenous contrast. Findings: Prominent ulceration/defect within the soft tissues at the lateral aspect of the 5th metatarsal base. Adjacent prominent reactive edema seen within the 5th metatarsal bone and lateral aspect of the cuboid bone at the site of the ulceration demonstrating decreased T1 signal, increased STIR signal, and postcontrast enhancement consistent with acute osteomyelitis. Additional prominent signal abnormality demonstrating decreased T1 signal, increased STIR signal, and mild patchy post-contrast enhancement noted within the 4th metatarsal base, 3rd metatarsal shaft, 2nd metatarsal shaft, navicular bone, lateral and intermediate cuneiform bones also concerning for acute and or developing acute osteomyelitis ; however, additional etiologies cannot be excluded. Resection of the 3rd digit to the level of the proximal phalanx. Chronic fracture deformity at the head of the 2nd metatarsal bone. Moderate hallux valgus deformity. Deformity of the 1st distal phalanx with reactive edema at the 1st distal phalanx and head of the 1st proximal phalanx, nonspecific. Clinical correlation to exclude acute osteomyelitis at this level. Punctate foci of blooming artifact at the 1st metatarsal head. Nonspecific. Clinical correlation. Truncation of the peroneus brevis tendon concerning for a tear. Heterogeneous signal intensity visualized at the level of the peroneus longus tendon consistent with tendinosis. Diffuse muscle atrophy is visualized. Small tibiotalar and subtalar joint effusions are noted. These joints are incompletely visualized. Edema is visualized within the sinus tarsi. Impression: 1. Prominent ulceration/defect within the soft tissues at the lateral aspect of the 5th metatarsal base. Adjacent prominent reactive edema seen within the 5th metatarsal bone and lateral aspect of the cuboid bone at the site of the ulceration demonstrating decreased T1 signal, increased STIR signal, and postcontrast enhancement consistent with acute osteomyelitis. 2. Additional prominent signal abnormality demonstrating decreased T1 signal, increased STIR signal, and mild patchy post-contrast enhancement noted within the 4th metatarsal base, 3rd metatarsal shaft, 2nd metatarsal shaft, navicular bone, lateral and intermediate cuneiform bones also concerning for acute and or developing acute osteomyelitis ; however, additional etiologies cannot be excluded. 3. Resection of the 3rd digit to the level of the proximal phalanx. 4. Chronic fracture deformity at the head of the 2nd metatarsal bone. 5. Moderate hallux valgus deformity. 6. Deformity of the 1st distal phalanx with reactive edema at the 1st distal phalanx and head of the 1st proximal phalanx, nonspecific. Clinical correlation to exclude acute osteomyelitis at this level. Punctate foci of blooming artifact at the 1st metatarsal head. Nonspecific. Clinical correlation. 7. Truncation of the peroneus brevis tendon concerning for a tear. 8. Heterogeneous signal intensity visualized at the level of the peroneus longus tendon consistent with tendinosis. 9. Diffuse muscle atrophy is visualized. 10. Small tibiotalar and subtalar joint effusions are noted. These joints are incompletely visualized. 11. Edema is visualized within the sinus tarsi. These findings were preliminarily reported at 5:55 p.m. on 01/13/[address] Jose Strickland from [facility].
[2017-01-15] MEDS ORDERED: Neostigmine Methylsulfate 3mg/3ml Syringe IV ONE (16:12)
[2017-01-15] MEDS ORDERED: Neostigmine Methylsulfate 2 MG/2 ML ML IV ONE (16:12)
[2017-01-15] MEDS ORDERED: Clindamycin 600 MG in Sodium Chloride 0.9% 100 ML IVPB SCH (17:00)
[2017-01-15] MEDS ORDERED: Desflurane Inhalation Anesthetic Liq (240 ml) ONE (17:02)
[2017-01-15 17:26] VITALS: BMI 33.7
[2017-01-15] MEDS ORDERED: Naloxone 0.4 mg/ml Inj (Adult) ONE (17:35)
[2017-01-15] MEDS ORDERED: Sodium Chloride 0.9% 250 ML IV ONE (17:45)
[2017-01-15] MEDS ORDERED: Sodium Chloride 0.9% 500 ML IV ONE (17:45)
--- NOTE | 2017-01-15 17:55 | PCM.SURG1 ---
<Asiya Marshall - Last Filed: 01/15/17 17:54> Surgeon's Initial Post Op Note - Surgeon's Notes Surgeon: Dr. Kelly Payroll Director: Dr. Rolando Burnham PGY2 Type of Anesthesia: General Endo Anesthesia Administered By: Daniela Pre-Operative Diagnosis: Left Carotid Artery Stenosis Operative Findings: same Post-Operative Diagnosis: same Operation Performed: Left Carotid Endarterectomy Specimen/Specimens Removed: Dacron patch inserted. Atherosclerotic plaque removed Estimated Blood Loss: EBL {In ML}: 100 Blood Products Given: N/A Drains Used: No Drains Post-Op Condition: Good Date of Surgery/Procedure: 01/15/17 Time of Surgery/Procedure: 17:55 <Collin Kelly - Last Filed: 01/15/17 18:08> Surgeon's Initial Post Op Note - Surgeon's Notes Pre-Operative Diagnosis: Severe left carotid artery stenosis in the 90 per cent range Operative Findings: Extensive sof lafe carotid plaque Operation Performed: Left carotid endarterectomy with patch angioplasty Estimated Blood Loss: EBL {In ML}: 30
--- NOTE | 2017-01-15 17:59 | PCM.SURG1 ---
Surgeon's Initial Post Op Note - Surgeon's Notes Surgeon: [employer] [facility] [employer] [facility] [employer] Analyst: Naveed Marshall Type of Anesthesia: General Endo Pre-Operative Diagnosis: Severe left carotid artery stenosis Operative Findings: Extensive soft atherosclerotic carotid plaque Post-Operative Diagnosis: Severe left carotid stenosis Operation Performed: Left carotid endarterectomy with patch angioplasty Specimen/Specimens Removed: Left carotid plaque Estimated Blood Loss: EBL {In ML}: 25 Blood Products Given: N/A Drains Used: No Drains Post-Op Condition: Other (satifactory) Date of Surgery/Procedure: 01/15/17 Time of Surgery/Procedure: 03:00
[2017-01-15] MEDS ORDERED: Sodium Chloride 0.45% 1,000 ML IV SCH (18:00)
[2017-01-15] MEDS ORDERED: HYDROmorphone 0.5 mg/0.5 ml ISec IVP PRN (18:02)
[2017-01-15] MEDS ORDERED: DOPamine 400mg/250ml D5W 400 MG/250 ML BAG IV ONE (18:05)
--- NOTE | 2017-01-15 18:53 | CP.PCM.CON ---
History of Present Illness - History of Present Illness History of Present Illness: 56yo F. PMHx DM type 2, Asthma, HTN, Depression, Vancomycin allergy. p/w syncopal episodes, found to have 90% left carotid stenosis and 60-70% right carotid stenosis. patient underwent left carotid endarterectomy. Admitted to ICU for post-op monitoring. Review of Systems - Review of Systems Review of Systems: all systems reviewed, no complaints. Past Patient History - Infectious Disease Hx of Infectious Diseases: None - Past Medical History & Family History Past Medical History?: Yes Past Family History: Reviewed and not pertinent - Past Social History Smoking Status: Heavy Smoker > 10 Cigarettes Daily Alcohol: Occasional Drugs: Denies Home Situation {Lives}: With Family - CARDIAC Hx Congestive Heart Failure: Yes Hx Hypercholesterolemia: Yes Hx Hypertension: Yes - PULMONARY Hx Asthma: Yes - NEUROLOGICAL Hx Seizures: No - HEENT Hx HEENT Problems: No - RENAL Hx Chronic Kidney Disease: No - ENDOCRINE/METABOLIC Hx Endocrine Disorders: Yes Hx Diabetes Mellitus Type 2: Yes - HEMATOLOGICAL/ONCOLOGICAL Hx Human Immunodeficiency Virus (HIV): No - INTEGUMENTARY Hx Dermatological Problems: No - MUSCULOSKELETAL/RHEUMATOLOGICAL Hx Musculoskeletal Disorders: Yes - GASTROINTESTINAL Hx Gastrointestinal Disorders: No - GENITOURINARY/GYNECOLOGICAL Hx Sexually Transmitted Disorders: No - PSYCHIATRIC Hx Anxiety: Yes Hx Depression: Yes Hx Substance Use: No - SURGICAL HISTORY Hx Appendectomy: Yes Hx Cholecystectomy: Yes - ANESTHESIA Hx Anesthesia: Yes Hx Anesthesia Reactions: No Hx Malignant Hyperthermia: No Meds Allergies/Adverse Reactions: Allergies Allergy/AdvReac Type Severity Reaction Status Date / Time vancomycin AdvReac ITCHING Verified 05/22/16 13:09 - Medications Medications: Current Medications Aspirin (Ecotrin) 81 mg PO DAILY [facility] Clopidogrel Bisulfate (Plavix) 75 mg PO DAILY [facility] Dextrose (Dextrose 50% Inj) 0 ml IV STAT PRN; Protocol PRN Reason: Hyglycemia Protocol Dextrose (Glutose 15) 0 gm PO ONCE PRN; Protocol PRN Reason: Hypoglycemia Protocol Duloxetine HCl (Cymbalta) 60 mg PO HS [facility] Last Admin: 01/14/17 22:36 Dose: 60 mg Glucagon (Glucagen Diagnostic Kit) 0 mg IM STAT PRN; Protocol PRN Reason: Hypoglycemia Protocol Heparin Sodium (Porcine) (Heparin) 5,000 units SC Q8 [facility] PRN Reason: Protocol Last Admin: 01/15/17 09:47 Dose: 5,000 units Hydrochlorothiazide (Hydrodiuril) 25 mg PO DAILY [facility] Hydromorphone HCl (Dilaudid) 0.5 mg IVP Q3H PRN PRN Reason: Pain, moderate (4-7) Ceftriaxone Sodium 1 gm/ (Sodium Chloride) 100 mls @ 100 mls/hr IVPB DAILY [facility] Last Admin: 01/15/17 09:08 Dose: 100 mls/hr Dextrose/Sodium Chloride (Dextrose 5%/0.9% Ns 1000 Ml) 1,000 mls @ 80 mls/hr IV .[id number] [facility] Stop: 01/16/17 06:00 Last Admin: 01/15/17 05:17 Dose: 80 mls/hr Clindamycin Phosphate 600 mg/ (Sodium Chloride) 104 mls @ 104 mls/hr IVPB Q8 [facility] Sodium Chloride (Sodium Chloride 0.45%) 1,000 mls @ 75 mls/hr IV .[id number] [facility] Stop: 01/16/17 17:58 Sodium Nitroprusside 50 mg/ (Dextrose) 252 mls @ 9.13 mls/hr IV .Q24H [facility]; 0.3 MCG/KG/MIN PRN Reason: Protocol Phenylephrine HCl 10 mg/ (Sodium Chloride) 251 mls @ 30.12 mls/hr IV .Q8H20M [facility]; 20 MCG/MIN PRN Reason: Protocol Insulin Detemir (Levemir) 40 units SC HS [facility] Insulin Human Lispro (Humalog) 0 units SC ACHS [facility] PRN Reason: Protocol Last Admin: 01/15/17 12:08 Dose: Not Given Insulin Human Lispro (Humalog) 14 units SC AC [facility] Last Admin: 01/15/17 12:00 Dose: 14 units Lisinopril (Zestril) 20 mg PO DAILY [facility] Lorazepam (Ativan) 1 mg IVP ONCE PRN PRN Reason: Anxiety Metoclopramide HCl (Reglan) 10 mg IVP ONCE PRN PRN Reason: Nausea/Vomiting Stop: 01/15/17 19:15 Ondansetron HCl (Zofran Inj) 4 mg IVP Q4H PRN PRN Reason: Nausea/Vomiting Ondansetron HCl (Zofran Inj) 4 mg IVP ONCE PRN PRN Reason: Nausea/Vomiting Stop: 01/15/17 19:15 Oxycodone/Acetaminophen (Percocet 5/325 Mg Tab) 2 tab PO Q4 PRN PRN Reason: Pain, moderate (4-7) Stop: 01/18/17 18:02 Pravastatin Sodium (Pravachol) 40 mg PO HS [facility] Last Admin: 01/14/17 22:35 Dose: 40 mg Pregabalin (Lyrica) 100 mg PO Q8 [facility] Last Admin: 01/15/17 09:46 Dose: Not Given Zolpidem Tartrate (Ambien) 5 mg PO HS PRN PRN Reason: Insomnia Last Admin: 01/14/17 22:35 Dose: 5 mg Physical Exam - Head Exam Head Exam: ATRAUMATIC - Eye Exam Eye Exam: EOMI, Normal appearance, PERRL Pupil Exam: NORMAL ACCOMODATION, PERRL - ENT Exam ENT Exam: Mucous Membranes Moist, Normal Exam - Respiratory Exam Respiratory Exam: Clear to Auscultation Bilateral, NORMAL BREATHING PATTERN - Cardiovascular Exam Cardiovascular Exam: REGULAR RHYTHM - GI/Abdominal Exam GI & Abdominal Exam: Normal Bowel Sounds, Soft. absent: Tenderness - Neurological Exam Neurological exam: Alert, CN II-XII Intact, Normal Gait, Oriented x3, Reflexes Normal - Psychiatric Exam Psychiatric exam: Normal Affect, Normal Mood Results - Vital Signs Recent Vital Signs: Last Vital Signs Temp 96.7 F L 01/15/17 18:30 Pulse 80 01/15/17 18:30 Resp 19 01/15/17 18:30 BP 143/68 01/15/17 18:30 Pulse Ox 100 01/15/17 18:30 - Labs Result Diagrams: 01/15/17 05:55 01/15/17 05:55 Labs: Laboratory Results - last 24 hr 01/14/17 01/14/17 01/14/17 17:48 19:47 21:38 WBC RBC Hgb Hct MCV MCH MCHC RDW Plt Count MPV Neut % (Auto) Lymph % (Auto) [place] % (Auto) Eos % (Auto) Baso % (Auto) Neut # Lymph # [place] # Eos # Baso # PT INR APTT Sodium Potassium Chloride Carbon Dioxide Anion Gap BUN Creatinine Est GFR ( Amer) Est GFR (Non-Af Amer) POC Glucose (mg/dL) 332 H Random Glucose Calcium Blood Type A POSITIVE Blood Type Confirm A POSITIVE Antibody Screen Negative Crossmatch See Detail BBK History Checked No verified bt 01/15/17 01/15/17 01/15/17 04:05 05:55 05:55 WBC 6.5 RBC 4.07 Hgb 12.3 Hct 38.0 MCV 93.4 MCH 30.3 MCHC 32.4 L RDW 14.7 H Plt Count 201 MPV 9.6 Neut % (Auto) 71.0 Lymph % (Auto) 17.3 L [place] % (Auto) 9.3 Eos % (Auto) 1.2 Baso % (Auto) 1.2 Neut # 4.6 Lymph # 1.1 [place] # 0.6 Eos # 0.1 Baso # 0.1 PT 11.6 INR 1.0 APTT 41.5 H Sodium Potassium Chloride Carbon Dioxide Anion Gap BUN Creatinine Est GFR ( Amer) Est GFR (Non-Af Amer) POC Glucose (mg/dL) 199 H Random Glucose Calcium Blood Type Blood Type Confirm Antibody Screen Crossmatch BBK History Checked 01/15/17 01/15/17 01/15/17 05:55 06:06 11:00 WBC RBC Hgb Hct MCV MCH MCHC RDW Plt Count MPV Neut % (Auto) Lymph % (Auto) [place] % (Auto) Eos % (Auto) Baso % (Auto) Neut # Lymph # [place] # Eos # Baso # PT INR APTT Sodium 137 Potassium 4.6 Chloride 102 Carbon Dioxide 26 Anion Gap 14 BUN 15 Creatinine 1.0 Est GFR ( Amer) > 60 Est GFR (Non-Af Amer) 57 POC Glucose (mg/dL) 240 H 245 H Random Glucose 239 H Calcium 9.6 Blood Type Blood Type Confirm Antibody Screen Crossmatch BBK History Checked 01/15/17 01/15/17 13:02 18:12 WBC RBC Hgb Hct MCV MCH MCHC RDW Plt Count MPV Neut % (Auto) Lymph % (Auto) [place] % (Auto) Eos % (Auto) Baso % (Auto) Neut # Lymph # [place] # Eos # Baso # PT INR APTT Sodium Potassium Chloride Carbon Dioxide Anion Gap BUN Creatinine Est GFR ( Amer) Est GFR (Non-Af Amer) POC Glucose (mg/dL) 173 H 166 H Random Glucose Calcium Blood Type Blood Type Confirm Antibody Screen Crossmatch BBK History Checked Assessment & Plan (1) Carotid artery stenosis Assessment and Plan: 56yo F. PMHx DM type 2, Asthma, HTN, Depression, Vancomycin allergy. p/w syncopal episodes, found to have 90% left carotid stenosis and 60-70% right carotid stenosis. patient underwent left carotid endarterectomy. Admitted to ICU for post-op monitoring. Neuro: alert and oriented x 3 Pulm: no acute issues, breathing spontaneously on room air. asthma stable. CV: hemodynamically stable. HTN holding oral antihypertensives immediately post -op. Maintain SBP between 90-170. Hem: no acute issues. started on ASA and Plavix. Renal: no acute issues Endo: DM type 2, lantus qhs and short acting insulin sliding scale for coverage GI: liquid diet, advance as tolerated. ID: empiric coverage with Cefazolin, should stop after 3 doses. DVT proph - heparin sq GI proph - not currently indicated Code status - full code Critical Care Time spent 35 minutes Multi-disciplinary rounds were performed with house staff, nursing, speech therapy, respiratory therapy, pharmacy and nutrition with integrated input from the primary team/attending and other consulting services. The documented time is cumulative and includes review of patient data/exams/labs/chart review and examination of the patient on rounds and throughout the day; time is exclusive of any procedures or teaching time. Status: Acute
[2017-01-15] MEDS: Insulin Detemir 100 Units/ml Inj SC SCH (22:31)
[2017-01-15] MEDS: Pravastatin Sodium 40 MG TAB PO SCH (22:32)
[2017-01-15] MEDS: Oxycodone/Acetaminophen 5/325 mg Tab PO PRN (22:40)
[2017-01-16 05:29] LABS: MEAN CELL VOLUME 93.3 fl (81.0-99.0); MEAN CORPUSCULAR HGB CONC 33.2 g/dL (33.0-37.0); RBC 3.55 Mil/uL (3.80-5.20); RED CELL DISTRIBUTION WIDTH 14.7 % (11.5-14.5); WHITE BLOOD COUNT 8.9 K/uL (4.8-10.8)
[2017-01-16 05:43] LABS: BLOOD UREA NITROGEN 15 mg/dl (7-17); CALCIUM 8.9 mg/dL (8.4-10.2); GFR AFRICAN-AMERICAN > 60; GFR NON-AFRICAN AMERICAN > 60
[2017-01-16] MEDS: Insulin Lispro (humaLOG) 100 Units/ml Inj SC SCH ×8 (06:31→21:15)
--- NOTE | 2017-01-16 07:26 | CP.PCM.PN ---
<RolandoAsiya - Last Filed: 01/16/17 07:24> Subjective - Date & Time of Evaluation Date of Evaluation: 01/16/17 Time of Evaluation: 07:24 - Subjective Subjective: Vascular Surgery - Dr. Kelly Pt S&EAshely PALMER. Pt BP has remained within range of 110-150 systolic overnight. She complains of mild soreness in the neck which is appropriate post-op. No difficulty with speech or movement of extremities. She drank clear liquid last night and urinated. No N/V, F/C, SOB/Cp. Objective - Vital Signs/Intake and Output Vital Signs (last 24 hours): Temp Pulse Resp BP Pulse Ox 98.4 F 75 20 133/63 94 L 01/16/17 04:00 01/16/17 06:51 01/16/17 06:51 01/16/17 06:51 01/16/17 06:51 Intake and Output: 01/16/17 01/16/17 06:59 18:59 Intake Total 1350 Output Total 400 Balance 950 - Medications Medications: Current Medications Aspirin (Ecotrin) 81 mg PO DAILY [facility] Clopidogrel Bisulfate (Plavix) 75 mg PO DAILY [facility] Dextrose (Dextrose 50% Inj) 0 ml IV STAT PRN; Protocol PRN Reason: Hyglycemia Protocol Dextrose (Glutose 15) 0 gm PO ONCE PRN; Protocol PRN Reason: Hypoglycemia Protocol Duloxetine HCl (Cymbalta) 60 mg PO HS [facility] Last Admin: 01/15/17 22:29 Dose: 60 mg Glucagon (Glucagen Diagnostic Kit) 0 mg IM STAT PRN; Protocol PRN Reason: Hypoglycemia Protocol Heparin Sodium (Porcine) (Heparin) 5,000 units SC Q8 [facility] PRN Reason: Protocol Last Admin: 01/16/17 01:04 Dose: 5,000 units Hydrochlorothiazide (Hydrodiuril) 25 mg PO DAILY [facility] Hydromorphone HCl (Dilaudid) 0.5 mg IVP Q3H PRN PRN Reason: Pain, moderate (4-7) Ceftriaxone Sodium 1 gm/ (Sodium Chloride) 100 mls @ 100 mls/hr IVPB DAILY [facility] Last Admin: 01/15/17 09:08 Dose: 100 mls/hr Sodium Chloride (Sodium Chloride 0.45%) 1,000 mls @ 75 mls/hr IV .[id number] [facility] Stop: 01/16/17 17:58 Last Admin: 01/15/17 22:27 Dose: 75 mls/hr Sodium Nitroprusside 50 mg/ (Dextrose) 252 mls @ 9.13 mls/hr IV .Q24H [facility]; 0.3 MCG/KG/MIN PRN Reason: Protocol Phenylephrine HCl 10 mg/ (Sodium Chloride) 251 mls @ 30.12 mls/hr IV .Q8H20M [facility]; 20 MCG/MIN PRN Reason: Protocol Clindamycin Phosphate 600 mg/ (Sodium Chloride) 54 mls @ 54 mls/hr IVPB Q8 [facility] Last Admin: 01/16/17 01:00 Dose: 54 mls/hr Insulin Detemir (Levemir) 40 units SC [facility] Last Admin: 01/15/17 22:31 Dose: 40 units Insulin Human Lispro (Humalog) 0 units SC ACHS [facility] PRN Reason: Protocol Last Admin: 01/16/17 06:31 Dose: Not Given Insulin Human Lispro (Humalog) 14 units SC AC [facility] Last Admin: 01/15/17 12:00 Dose: 14 units Lisinopril (Zestril) 20 mg PO DAILY [facility] Ondansetron HCl (Zofran Inj) 4 mg IVP Q4H PRN PRN Reason: Nausea/Vomiting Oxycodone/Acetaminophen (Percocet 5/325 Mg Tab) 2 tab PO Q4 PRN PRN Reason: Pain, moderate (4-7) Stop: 01/18/17 18:02 Last Admin: 01/15/17 22:40 Dose: 2 tab Pravastatin Sodium (Pravachol) 40 mg PO [facility] Last Admin: 01/15/17 22:32 Dose: 40 mg Pregabalin (Lyrica) 100 mg PO Q8 [facility] Last Admin: 01/16/17 00:59 Dose: 100 mg - Labs Labs: 01/16/17 04:20 01/16/17 04:20 PT 11.6 Seconds (9.8-13.1) 01/15/17 05:55 INR 1.0 (0.9-1.2) 01/15/17 05:55 APTT 41.5 Seconds (25.6-37.1) H 01/15/17 05:55 - Constitutional Appears: No Acute Distress - Head Exam Head Exam: ATRAUMATIC, NORMAL INSPECTION, NORMOCEPHALIC - Eye Exam Eye Exam: Normal appearance - ENT Exam ENT Exam: Mucous Membranes Dry - Neck Exam Additional comments: Left surgical dressing in place is C/D/I, no hematoma or swelling - Respiratory Exam Respiratory Exam: NORMAL BREATHING PATTERN. absent: Respiratory Distress - Cardiovascular Exam Cardiovascular Exam: REGULAR RHYTHM - Neurological Exam Neurological Exam: Alert, CN II-XII Intact, Oriented x3. absent: Motor Sensory Deficit - Psychiatric Exam Psychiatric exam: Normal Affect, Normal Mood - Skin Skin Exam: Dry, Intact Assessment and Plan - Assessment and Plan (Free Text) Assessment: 56 yo F s/p Left carotid endarterectomy with patch angioplasty, POD #1 -Doing well Post-op -Advance diet as tolerated -Continue with BP control -Pain control prn -DC arterial line later today -OOB to chair and can ambulate -Plavix/ASA daily -DVT prophylaxis DW Dr. Kelly and Dr. Jelani Marshall PGY2 <Collin Kelly - Last Filed: 01/16/17 14:14> Subjective - Subjective Subjective: Patient seen and examined. She remained hemodynamically, neurologically and clinically stable overnight. There are no immediate acute issues at present. Left neck dressing is clean and dry with no hematoma. Continue supportive care. can advance diet as tolerated to pre-op diet. Out of bed with assist. Objective - Vital Signs/Intake and Output Vital Signs (last 24 hours): Temp Pulse Resp BP Pulse Ox 98.5 F 80 20 134/60 100 01/16/17 12:00 01/16/17 12:00 01/16/17 12:00 01/16/17 12:00 01/16/17 12:00 Intake and Output: 01/16/17 01/16/17 06:59 18:59 Intake Total 1350 450 Output Total 400 Balance 950 450 - Medications Medications: Current Medications Aspirin (Ecotrin) 81 mg PO DAILY [facility] Last Admin: 01/16/17 08:24 Dose: 81 mg Clopidogrel Bisulfate (Plavix) 75 mg PO DAILY [facility] Last Admin: 01/16/17 08:24 Dose: 75 mg Dextrose (Dextrose 50% Inj) 0 ml IV STAT PRN; Protocol PRN Reason: Hyglycemia Protocol Dextrose (Glutose 15) 0 gm PO ONCE PRN; Protocol PRN Reason: Hypoglycemia Protocol Duloxetine HCl (Cymbalta) 60 mg PO HS [facility] Last Admin: 01/15/17 22:29 Dose: 60 mg Glucagon (Glucagen Diagnostic Kit) 0 mg IM STAT PRN; Protocol PRN Reason: Hypoglycemia Protocol Heparin Sodium (Porcine) (Heparin) 5,000 units SC Q8 [facility] PRN Reason: Protocol Last Admin: 01/16/17 08:22 Dose: 5,000 units Hydrochlorothiazide (Hydrodiuril) 25 mg PO DAILY [facility] Last Admin: 01/16/17 09:23 Dose: 25 mg Hydromorphone HCl (Dilaudid) 0.5 mg IVP Q3H PRN PRN Reason: Pain, moderate (4-7) Ceftriaxone Sodium 1 gm/ (Sodium Chloride) 100 mls @ 100 mls/hr IVPB DAILY [facility] Last Admin: 01/16/17 09:23 Dose: 100 mls/hr Sodium Chloride (Sodium Chloride 0.45%) 1,000 mls @ 75 mls/hr IV .[id number] [facility] Stop: 01/16/17 17:58 Last Admin: 01/15/17 22:27 Dose: 75 mls/hr Sodium Nitroprusside 50 mg/ (Dextrose) 252 mls @ 9.13 mls/hr IV .Q24H [facility]; 0.3 MCG/KG/MIN PRN Reason: Protocol Phenylephrine HCl 10 mg/ (Sodium Chloride) 251 mls @ 30.12 mls/hr IV .Q8H20M [facility]; 20 MCG/MIN PRN Reason: Protocol Clindamycin Phosphate 600 mg/ (Sodium Chloride) 54 mls @ 54 mls/hr IVPB Q8 [facility] Last Admin: 01/16/17 08:30 Dose: 54 mls/hr Insulin Detemir (Levemir) 40 units SC HS [facility] Last Admin: 01/15/17 22:31 Dose: 40 units Insulin Human Lispro (Humalog) 0 units SC ACHS [facility] PRN Reason: Protocol Last Admin: 01/16/17 11:44 Dose: Not Given Insulin Human Lispro (Humalog) 14 units SC AC [facility] Last Admin: 01/16/17 12:17 Dose: 14 units Lisinopril (Zestril) 20 mg PO DAILY [facility] Last Admin: 01/16/17 08:39 Dose: 20 mg Ondansetron HCl (Zofran Inj) 4 mg IVP Q4H PRN PRN Reason: Nausea/Vomiting Oxycodone/Acetaminophen (Percocet 5/325 Mg Tab) 2 tab PO Q4 PRN PRN Reason: Pain, moderate (4-7) Stop: 01/18/17 18:02 Last Admin: 01/15/17 22:40 Dose: 2 tab Pravastatin Sodium (Pravachol) 40 mg PO HS [facility] Last Admin: 01/15/17 22:32 Dose: 40 mg Pregabalin (Lyrica) 100 mg PO Q8 [facility] Last Admin: 01/16/17 08:37 Dose: 100 mg - Labs Labs: 01/16/17 04:20 01/16/17 04:20 PT 11.6 Seconds (9.8-13.1) 01/15/17 05:55 INR 1.0 (0.9-1.2) 01/15/17 05:55 APTT 41.5 Seconds (25.6-37.1) H 01/15/17 05:55
[2017-01-16] MEDS: SILVASORB ANTIMICROBIAL WOUND GEL TP SCH (08:25)
--- NOTE | 2017-01-16 08:41 | CP.PCM.PN ---
Subjective - Date & Time of Evaluation Date of Evaluation: 01/16/17 Time of Evaluation: 08:00 - Subjective Subjective: 56 year old female patient seen at bedside in the ICU this morning for R foot chronic plantar wound. Patient is in the ICU for post-op monitoring. Patient is resting comfortably, AAOx3 and NAD. Patient had her left carotid endarterectomy surgery yesterday and tolerated the procedure well. Patient states she is feeling weak from the procedure but denies N/V/F/D/SOB/CP. Patient denies pain to her right foot. No other pedal complaints at this time. Objective - Vital Signs/Intake and Output Vital Signs (last 24 hours): Temp Pulse Resp BP Pulse Ox 98.4 F 75 16 139/63 95 01/16/17 08:00 01/16/17 08:00 01/16/17 08:00 01/16/17 08:00 01/16/17 08:00 Intake and Output: 01/16/17 01/16/17 06:59 18:59 Intake Total 1350 Output Total 400 Balance 950 - Medications Medications: Current Medications Aspirin (Ecotrin) 81 mg PO DAILY [facility] Last Admin: 01/16/17 08:24 Dose: 81 mg Clopidogrel Bisulfate (Plavix) 75 mg PO DAILY [facility] Last Admin: 01/16/17 08:24 Dose: 75 mg Dextrose (Dextrose 50% Inj) 0 ml IV STAT PRN; Protocol PRN Reason: Hyglycemia Protocol Dextrose (Glutose 15) 0 gm PO ONCE PRN; Protocol PRN Reason: Hypoglycemia Protocol Duloxetine HCl (Cymbalta) 60 mg PO HS [facility] Last Admin: 01/15/17 22:29 Dose: 60 mg Glucagon (Glucagen Diagnostic Kit) 0 mg IM STAT PRN; Protocol PRN Reason: Hypoglycemia Protocol Heparin Sodium (Porcine) (Heparin) 5,000 units SC Q8 [facility] PRN Reason: Protocol Last Admin: 01/16/17 08:22 Dose: 5,000 units Hydrochlorothiazide (Hydrodiuril) 25 mg PO DAILY [facility] Hydromorphone HCl (Dilaudid) 0.5 mg IVP Q3H PRN PRN Reason: Pain, moderate (4-7) Ceftriaxone Sodium 1 gm/ (Sodium Chloride) 100 mls @ 100 mls/hr IVPB DAILY [facility] Last Admin: 01/15/17 09:08 Dose: 100 mls/hr Sodium Chloride (Sodium Chloride 0.45%) 1,000 mls @ 75 mls/hr IV .[id number] [facility] Stop: 01/16/17 17:58 Last Admin: 01/15/17 22:27 Dose: 75 mls/hr Sodium Nitroprusside 50 mg/ (Dextrose) 252 mls @ 9.13 mls/hr IV .Q24H [facility]; 0.3 MCG/KG/MIN PRN Reason: Protocol Phenylephrine HCl 10 mg/ (Sodium Chloride) 251 mls @ 30.12 mls/hr IV .Q8H20M [facility]; 20 MCG/MIN PRN Reason: Protocol Clindamycin Phosphate 600 mg/ (Sodium Chloride) 54 mls @ 54 mls/hr IVPB Q8 [facility] Last Admin: 01/16/17 08:30 Dose: 54 mls/hr Insulin Detemir (Levemir) 40 units SC HS [facility] Last Admin: 01/15/17 22:31 Dose: 40 units Insulin Human Lispro (Humalog) 0 units SC ACHS [facility] PRN Reason: Protocol Last Admin: 01/16/17 06:31 Dose: Not Given Insulin Human Lispro (Humalog) 14 units SC AC [facility] Last Admin: 01/16/17 08:05 Dose: 14 units Lisinopril (Zestril) 20 mg PO DAILY [facility] Ondansetron HCl (Zofran Inj) 4 mg IVP Q4H PRN PRN Reason: Nausea/Vomiting Oxycodone/Acetaminophen (Percocet 5/325 Mg Tab) 2 tab PO Q4 PRN PRN Reason: Pain, moderate (4-7) Stop: 01/18/17 18:02 Last Admin: 01/15/17 22:40 Dose: 2 tab Pravastatin Sodium (Pravachol) 40 mg PO HS [facility] Last Admin: 01/15/17 22:32 Dose: 40 mg Pregabalin (Lyrica) 100 mg PO Q8 [facility] Last Admin: 01/16/17 08:37 Dose: 100 mg - Labs Labs: 01/16/17 04:20 01/16/17 04:20 PT 11.6 Seconds (9.8-13.1) 01/15/17 05:55 INR 1.0 (0.9-1.2) 01/15/17 05:55 APTT 41.5 Seconds (25.6-37.1) H 01/15/17 05:55 - Constitutional Appears: Well, Non-toxic, No Acute Distress - Extremities Exam Additional comments: Focused RLE physical exam: Vasc: DP and PT pulses palpable 1/4. CFT <4 seconds. TG warm to warm. No edema noted. Neuro: Gross sensation diminished. Derm: Ulceration noted to plantarlateral aspect of right foot measuring approximately 3.5 x 2.5 x 0.4 cm. Wound base appears to be 75% granular and 25% fibrotic with no drainage noted and a hyperkeratotic rim. No tunneling, undermining, probe to bone, purulence, malodor, fluctuance noted. Ortho: No pain on palpation noted to plantarlateral R foot. 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 Discussed plan in detail with attending Dr. Kaur Charts, labs, vitals reviewed: afebrile, WBC WNL @ 8.9. Silvasorb applied to R foot ulceration and dressed with adaptic, 4x4s, and kerlix. Patien is to remain PWB right foot. Lower extermity US re-ordered, specifying R foot dressing to be taken down for R pedal flow assessment. Patient went in for endarterectomy yesterday = 90% L carotid & 60-70% R carotid stenosis. R foot MRI (official report): 1. Reactive edema seen w/in 5th met and lateral cuboid around ulceration and postcontrast enhancement consistent with acute OM 2. Signal abnormality and mild patchy post-contrast enhancement w/in 4th met base, 3rd met shaft, 2nd met shaft, navicular, lateral and intermediate cuneiforms also concerning for acute or developing acute OM; however, additional etiologies cannot be excluded 3. Deformity of 1st distal phalanx with reactive edema at 1st distal phalanx and head of 1st proximal phalanx. Clinical correlation to exclude acute OM at this level. - Pt has history of OM and Charcot -Patient is stable per podiatry. -Podiatry will continue to follow while in-house.
[2017-01-16] MEDS: Oxycodone/Acetaminophen 5/325 mg Tab PO PRN (20:22)
[2017-01-16] MEDS: Pravastatin Sodium 40 MG TAB PO SCH (21:11)
[2017-01-16] MEDS: Insulin Detemir 100 Units/ml Inj SC SCH (21:12)
[2017-01-17] MEDS: Oxycodone/Acetaminophen 5/325 mg Tab PO PRN (02:50)
[2017-01-17] MEDS: Insulin Lispro (humaLOG) 100 Units/ml Inj SC SCH ×5 (06:32→22:00)
--- NOTE | 2017-01-17 07:34 | CP.PCM.PN ---
Subjective - Date & Time of Evaluation Date of Evaluation: 01/17/17 Time of Evaluation: 07:30 - Subjective Subjective: pt seen at bedside for ulcer right midfoot chronic in nature , Objective - Vital Signs/Intake and Output Vital Signs (last 24 hours): Temp Pulse Resp BP Pulse Ox 98.1 F 68 15 159/71 H 100 01/17/17 04:00 01/17/17 04:00 01/17/17 04:00 01/17/17 04:00 01/17/17 04:00 Intake and Output: 01/17/17 01/17/17 06:59 18:59 Intake Total 370 Output Total 800 Balance -430 - Medications Medications: Current Medications Aspirin (Ecotrin) 81 mg PO DAILY [facility] Last Admin: 01/16/17 08:24 Dose: 81 mg Clopidogrel Bisulfate (Plavix) 75 mg PO DAILY [facility] Last Admin: 01/16/17 08:24 Dose: 75 mg Dextrose (Dextrose 50% Inj) 0 ml IV STAT PRN; Protocol PRN Reason: Hyglycemia Protocol Dextrose (Glutose 15) 0 gm PO ONCE PRN; Protocol PRN Reason: Hypoglycemia Protocol Duloxetine HCl (Cymbalta) 60 mg PO HS [facility] Last Admin: 01/16/17 21:11 Dose: 60 mg Glucagon (Glucagen Diagnostic Kit) 0 mg IM STAT PRN; Protocol PRN Reason: Hypoglycemia Protocol Heparin Sodium (Porcine) (Heparin) 5,000 units SC Q8 [facility] PRN Reason: Protocol Last Admin: 01/17/17 01:30 Dose: 5,000 units Hydrochlorothiazide (Hydrodiuril) 25 mg PO DAILY [facility] Last Admin: 01/16/17 09:23 Dose: 25 mg Hydromorphone HCl (Dilaudid) 0.5 mg IVP Q3H PRN PRN Reason: Pain, moderate (4-7) Sodium Nitroprusside 50 mg/ (Dextrose) 252 mls @ 9.13 mls/hr IV .Q24H [facility]; 0.3 MCG/KG/MIN PRN Reason: Protocol Phenylephrine HCl 10 mg/ (Sodium Chloride) 251 mls @ 30.12 mls/hr IV .Q8H20M [facility]; 20 MCG/MIN PRN Reason: Protocol Clindamycin Phosphate 600 mg/ (Sodium Chloride) 54 mls @ 54 mls/hr IVPB Q8 [facility] Last Admin: 01/17/17 01:35 Dose: 54 mls/hr Insulin Detemir (Levemir) 40 units SC HS [facility] Last Admin: 01/16/17 21:12 Dose: 40 units Insulin Human Lispro (Humalog) 0 units SC ACHS [facility] PRN Reason: Protocol Last Admin: 01/17/17 06:32 Dose: Not Given Insulin Human Lispro (Humalog) 14 units SC AC [facility] Last Admin: 01/16/17 17:23 Dose: 14 units Lisinopril (Zestril) 20 mg PO DAILY [facility] Last Admin: 01/16/17 08:39 Dose: 20 mg Ondansetron HCl (Zofran Inj) 4 mg IVP Q4H PRN PRN Reason: Nausea/Vomiting Oxycodone/Acetaminophen (Percocet 5/325 Mg Tab) 2 tab PO Q4 PRN PRN Reason: Pain, moderate (4-7) Stop: 01/18/17 18:02 Last Admin: 01/17/17 02:50 Dose: 2 tab Pravastatin Sodium (Pravachol) 40 mg PO [facility] Last Admin: 01/16/17 21:11 Dose: 40 mg Pregabalin (Lyrica) 100 mg PO Q8 [facility] Last Admin: 01/17/17 01:30 Dose: 100 mg - Labs Labs: 01/16/17 04:20 01/16/17 04:20 PT 11.6 Seconds (9.8-13.1) 01/15/17 05:55 INR 1.0 (0.9-1.2) 01/15/17 05:55 APTT 41.5 Seconds (25.6-37.1) H 01/15/17 05:55 - Extremities Exam Additional comments: O/Ulcer midfoot base met 5 granular and some improvement noted over last 10 days . Acute OM noted MRI in area . Vascular grossly intact however monophasic waveform on left side . DM neuropathy noted . No acute signs of infection noted right foot and wound is very stable . Assessment and Plan - Assessment and Plan (Free Text) Assessment: A/ DM ulcer right midfoot with OM . Plan: P/Apply silvasorb and dressing this AM . PT is s/p Carotid artery surgery and discussedwith surgery this AM . PLan is to call I.D> about Picc line and D/c home with IV as per recommendations and follow up in wound center . If any intervention needed for P.A.D. right leg will be done after her recovery from current surgery .She will be seen on Thursday at wound center if discharged as planned.
[2017-01-17] MEDS: SILVASORB ANTIMICROBIAL WOUND GEL TP SCH (08:12)
[2017-01-17] MEDS ORDERED: Oxycodone/Acetaminophen 5/325 mg Tab ONE (09:00)
[2017-01-17] MEDS ORDERED: Insulin Detemir 100 Units/ml Inj SC ONE (09:00)
[2017-01-17] MEDS ORDERED: Silver Sulfadiazine 1% Cream (20 gm) ONE (09:00)
[2017-01-17] MEDS ORDERED: Insulin Lispro (humaLOG) 100 Units/ml Inj ONE (09:00)
[2017-01-17] MEDS ORDERED: Pravastatin Sodium 40 MG TAB PO ONE (09:00)
--- NOTE | 2017-01-17 09:05 | CP.PCM.PN ---
<Asiya Marshall - Last Filed: 01/17/17 09:00> Subjective - Date & Time of Evaluation Date of Evaluation: 01/17/17 Time of Evaluation: 09:00 - Subjective Subjective: Vascular Surgery - Dr. Kelly Pt S&E. SPENCER. Pt doing very well post-op. She was OOB to chair and commode yesterday. She is up for transfer to med/surg. Pt is tolerating regular diet with no N/V, F/C, SOB/Cp. Left neck dressing c/d/i with no hematoma. Nerve functions intact. Objective - Vital Signs/Intake and Output Vital Signs (last 24 hours): Temp Pulse Resp BP Pulse Ox 98.1 F 77 15 159/56 H 100 01/17/17 04:00 01/17/17 08:13 01/17/17 04:00 01/17/17 08:13 01/17/17 04:00 Intake and Output: 01/17/17 01/17/17 06:59 18:59 Intake Total 370 Output Total 800 Balance -430 - Medications Medications: Current Medications Aspirin (Ecotrin) 81 mg PO DAILY [facility] Last Admin: 01/17/17 08:08 Dose: 81 mg Clopidogrel Bisulfate (Plavix) 75 mg PO DAILY [facility] Last Admin: 01/17/17 08:12 Dose: 75 mg Dextrose (Dextrose 50% Inj) 0 ml IV STAT PRN; Protocol PRN Reason: Hyglycemia Protocol Dextrose (Glutose 15) 0 gm PO ONCE PRN; Protocol PRN Reason: Hypoglycemia Protocol Duloxetine HCl (Cymbalta) 60 mg PO HS [facility] Last Admin: 01/16/17 21:11 Dose: 60 mg Glucagon (Glucagen Diagnostic Kit) 0 mg IM STAT PRN; Protocol PRN Reason: Hypoglycemia Protocol Heparin Sodium (Porcine) (Heparin) 5,000 units SC Q8 [facility] PRN Reason: Protocol Last Admin: 01/17/17 08:09 Dose: 5,000 units Hydrochlorothiazide (Hydrodiuril) 25 mg PO DAILY [facility] Last Admin: 01/17/17 08:10 Dose: 25 mg Hydromorphone HCl (Dilaudid) 0.5 mg IVP Q3H PRN PRN Reason: Pain, moderate (4-7) Sodium Nitroprusside 50 mg/ (Dextrose) 252 mls @ 9.13 mls/hr IV .Q24H [facility]; 0.3 MCG/KG/MIN PRN Reason: Protocol Phenylephrine HCl 10 mg/ (Sodium Chloride) 251 mls @ 30.12 mls/hr IV .Q8H20M [facility]; 20 MCG/MIN PRN Reason: Protocol Clindamycin Phosphate 600 mg/ (Sodium Chloride) 54 mls @ 54 mls/hr IVPB Q8 [facility] Last Admin: 01/17/17 08:08 Dose: 54 mls/hr Insulin Detemir (Levemir) 40 units SC HS [facility] Last Admin: 01/16/17 21:12 Dose: 40 units Insulin Human Lispro (Humalog) 0 units SC ACHS [facility] PRN Reason: Protocol Last Admin: 01/17/17 06:32 Dose: Not Given Insulin Human Lispro (Humalog) 14 units SC AC [facility] Last Admin: 01/17/17 08:09 Dose: 14 units Lisinopril (Zestril) 20 mg PO DAILY [facility] Last Admin: 01/17/17 08:13 Dose: 20 mg Ondansetron HCl (Zofran Inj) 4 mg IVP Q4H PRN PRN Reason: Nausea/Vomiting Oxycodone/Acetaminophen (Percocet 5/325 Mg Tab) 2 tab PO Q4 PRN PRN Reason: Pain, moderate (4-7) Stop: 01/18/17 18:02 Last Admin: 01/17/17 02:50 Dose: 2 tab Pravastatin Sodium (Pravachol) 40 mg PO [facility] Last Admin: 01/16/17 21:11 Dose: 40 mg Pregabalin (Lyrica) 100 mg PO Q8 [facility] Last Admin: 01/17/17 01:30 Dose: 100 mg - Labs Labs: 01/16/17 04:20 01/16/17 04:20 PT 11.6 Seconds (9.8-13.1) 01/15/17 05:55 INR 1.0 (0.9-1.2) 01/15/17 05:55 APTT 41.5 Seconds (25.6-37.1) H 01/15/17 05:55 - Constitutional Appears: No Acute Distress - Head Exam Head Exam: ATRAUMATIC, NORMAL INSPECTION, NORMOCEPHALIC - Eye Exam Eye Exam: Normal appearance - Neck Exam Neck Exam: Normal Inspection. absent: Tenderness Additional comments: dressing c/d/i - Cardiovascular Exam Cardiovascular Exam: REGULAR RHYTHM - Neurological Exam Neurological Exam: Alert, Oriented x3 - Psychiatric Exam Psychiatric exam: Normal Affect, Normal Mood - Skin Skin Exam: Dry, Intact Assessment and Plan - Assessment and Plan (Free Text) Assessment: 56 yo F s/p Left carotid endarterectomy with patch angioplasty, POD #2 -Tolerating regular diet, BP well controlled, No post-surgical issues -Dressing change later today -Pt is clear for discharge from our standpoint but will likely remain in hospital for IV abx for Osteomyelitis -Consider arrangements for PICC line and home Abx -Continue Plavix/ASA daily upon discharge -DVT prophylaxis DW Dr. Robin Marshall PGY2 <Collin Kelly - Last Filed: 01/17/17 11:00> Subjective - Subjective Subjective: Patient is doing quite well. She remained neurologically and clinically stable with no new issues or complaints. There are no gross neurological deficits; there is no tongue deviation. She is able to ambulate and tolerates PO. Incisional pain is mild. Incision appears to be healing well with no evidence of infection or hematoma. Continue supportive treatment. Patient has no immediate vascular surgical issues and can be discharged with follow-up as an outpatient in two weeks. Objective - Vital Signs/Intake and Output Vital Signs (last 24 hours): Temp Pulse Resp BP Pulse Ox 97.6 F 77 18 159/56 H 98 01/17/17 09:00 01/17/17 09:00 01/17/17 09:00 01/17/17 09:00 01/17/17 09:00 Intake and Output: 01/17/17 01/17/17 06:59 18:59 Intake Total 370 500 Output Total 800 Balance -430 500 - Medications Medications: Current Medications Aspirin (Ecotrin) 81 mg PO DAILY [facility] Last Admin: 01/17/17 08:08 Dose: 81 mg Clopidogrel Bisulfate (Plavix) 75 mg PO DAILY [facility] Last Admin: 01/17/17 08:12 Dose: 75 mg Dextrose (Dextrose 50% Inj) 0 ml IV STAT PRN; Protocol PRN Reason: Hyglycemia Protocol Dextrose (Glutose 15) 0 gm PO ONCE PRN; Protocol PRN Reason: Hypoglycemia Protocol Duloxetine HCl (Cymbalta) 60 mg PO HS [facility] Last Admin: 01/16/17 21:11 Dose: 60 mg Glucagon (Glucagen Diagnostic Kit) 0 mg IM STAT PRN; Protocol PRN Reason: Hypoglycemia Protocol Heparin Sodium (Porcine) (Heparin) 5,000 units SC Q8 [facility] PRN Reason: Protocol Last Admin: 01/17/17 08:09 Dose: 5,000 units Hydrochlorothiazide (Hydrodiuril) 25 mg PO DAILY [facility] Last Admin: 01/17/17 08:10 Dose: 25 mg Hydromorphone HCl (Dilaudid) 0.5 mg IVP Q3H PRN PRN Reason: Pain, moderate (4-7) Sodium Nitroprusside 50 mg/ (Dextrose) 252 mls @ 9.13 mls/hr IV .Q24H [facility]; 0.3 MCG/KG/MIN PRN Reason: Protocol Phenylephrine HCl 10 mg/ (Sodium Chloride) 251 mls @ 30.12 mls/hr IV .Q8H20M [facility]; 20 MCG/MIN PRN Reason: Protocol Clindamycin Phosphate 600 mg/ (Sodium Chloride) 104 mls @ 104 mls/hr IVPB Q8 [facility] Insulin Detemir (Levemir) 40 units SC [facility] Last Admin: 01/16/17 21:12 Dose: 40 units Insulin Human Lispro (Humalog) 0 units SC ACHS [facility] PRN Reason: Protocol Last Admin: 01/17/17 06:32 Dose: Not Given Insulin Human Lispro (Humalog) 14 units SC AC [facility] Last Admin: 01/17/17 08:09 Dose: 14 units Lisinopril (Zestril) 20 mg PO DAILY [facility] Last Admin: 01/17/17 08:13 Dose: 20 mg Ondansetron HCl (Zofran Inj) 4 mg IVP Q4H PRN PRN Reason: Nausea/Vomiting Oxycodone/Acetaminophen (Percocet 5/325 Mg Tab) 2 tab PO Q4 PRN PRN Reason: Pain, moderate (4-7) Stop: 01/18/17 18:02 Last Admin: 01/17/17 02:50 Dose: 2 tab Pravastatin Sodium (Pravachol) 40 mg PO HS [facility] Last Admin: 01/16/17 21:11 Dose: 40 mg Pregabalin (Lyrica) 100 mg PO Q8 [facility] Last Admin: 01/17/17 01:30 Dose: 100 mg - Labs Labs: 06/30/17 04:20 01/16/17 04:20 PT 11.6 Seconds (9.8-13.1) 01/15/17 05:55 INR 1.0 (0.9-1.2) 01/15/17 05:55 APTT 41.5 Seconds (25.6-37.1) H 01/15/17 05:55
--- NOTE | 2017-01-17 09:10 | CP.CCUPN ---
CCU Subjective - Physician Review Events Since Last Encounter (Free Text): 01/17/17 The Patient was seen and examined at the bedside, Medical records reviewed, all clinical/lab/hemodynamic/radiographic data were reviewed and management issues were discussed and formulated, Events reviewed 56 Y/O F with PMHx DM type 2, Asthma, HTN, Depression and Vancomycin allergy, Who initially p/w syncopal episodes, found to have 90% left carotid stenosis and 60-70% right carotid stenosis. Patient underwent Left carotid endarterectomy with patch angioplasty on 01/15 for severe left carotid stenosis Admitted to ICU for post-op monitoring, clinically improving ON ASA, Plavix Sitting comfortable in chair Tolerating PO diet Saturating well on 2L NC AAO x3 No neuro defecits No CP/SOB CCU Objective - Vital Signs / Intake & Output Vital Signs (Last 4 hours): Vital Signs Pulse BP 01/17/17 08:13 77 159/56 H Intake and Output (Last 8hrs): Intake & Output 01/16/17 01/17/17 01/17/17 22:59 06:59 14:59 Intake Total 520 170 Output Total 750 800 Balance -230 -630 Intake: IV 120 Intake, Piggyback 50 Oral 400 120 Output: Urine 750 800 Urine, Voided 750 800 Other: # Voids Urine, Voided 1 1 - Physical Exam Head: Positive for: Atraumatic, Normocephalic Pupils: Positive for: PERRL Extroacular Muscles: Positive for: EOMI Conjunctiva: Positive for: Normal Mouth: Positive for: Moist Mucous Membranes Neck: Positive for: Normal Range of Motion, Trachea Midline Respiratory/Chest: Positive for: Clear to Auscultation, Good Air Exchange. Negative for: Respiratory Distress, Accessory Muscle Use Cardiovascular: Positive for: Regular Rate and Rhythm, Normal S1, S2. Negative for: Murmurs, Bradycardic Abdomen: Positive for: Normal Bowel Sounds. Negative for: Distention - Medications Active Medications: Active Medications Generic Name Dose Route Start Last Admin Trade Name Freq PRN Reason Stop Dose Admin Aspirin 81 mg 01/16/17 09:00 01/17/17 08:08 Ecotrin PO 81 mg DAILY [facility] Administration Clopidogrel Bisulfate 75 mg 01/16/17 09:00 01/17/17 08:12 Plavix PO 75 mg DAILY [facility] Administration Dextrose 0 ml 01/06/17 12:13 Dextrose 50% Inj IV STAT PRN Hyglycemia Protocol Protocol Dextrose 0 gm 01/06/17 12:13 Glutose 15 PO ONCE PRN Hypoglycemia Protocol Protocol Duloxetine HCl 60 mg 01/06/17 22:00 01/16/17 21:11 Cymbalta PO 60 mg HS [facility] Administration Glucagon 0 mg 01/06/17 12:13 Glucagen Diagnostic Kit IM STAT PRN Hypoglycemia Protocol Protocol Heparin Sodium (Porcine) 5,000 units 01/06/17 17:00 01/17/17 08:09 Heparin SC 5,000 units Q8 [facility] Administration Protocol Hydrochlorothiazide 25 mg 01/07/17 09:00 01/17/17 08:10 Hydrodiuril PO 25 mg DAILY [facility] Administration Hydromorphone HCl 0.5 mg 01/15/17 18:02 Dilaudid IVP Q3H PRN Pain, moderate (4-7) Sodium Nitroprusside 50 mg/ 252 mls @ 9.13 mls/hr 01/15/17 18:15 Dextrose IV .Q24H [facility] Protocol 0.3 MCG/KG/MIN Phenylephrine HCl 10 mg/ 251 mls @ 30.12 mls/hr 01/15/17 18:30 Sodium Chloride IV .Q8H20M [facility] Protocol 20 MCG/MIN Clindamycin Phosphate 600 mg/ 54 mls @ 54 mls/hr 01/16/17 01:00 01/17/17 08: 08 Sodium Chloride IVPB 54 mls/hr Q8 [facility] Administration Insulin Detemir 40 units 01/15/17 22:00 01/16/17 21:12 Levemir SC 40 units HS [facility] Administration Insulin Human Lispro 0 units 01/07/17 16:30 01/17/17 06:32 Humalog SC Not Given ACHS [facility] Protocol Insulin Human Lispro 14 units 01/09/17 16:30 01/17/17 08:09 Humalog SC 14 units AC [facility] Administration Lisinopril 20 mg 01/07/17 09:00 01/17/17 08:13 Zestril PO 20 mg DAILY [facility] Administration Ondansetron HCl 4 mg 01/15/17 06:44 Zofran Inj IVP Q4H PRN Nausea/Vomiting Oxycodone/Acetaminophen 2 tab 01/15/17 18:01 01/17/17 02:50 Percocet 5/325 Mg Tab PO 01/18/17 18:02 2 tab Q4 PRN Administration Pain, moderate (4-7) Pravastatin Sodium 40 mg 01/06/17 22:00 01/16/17 21:11 Pravachol PO 40 mg HS [facility] Administration Pregabalin 100 mg 01/16/17 09:00 01/17/17 01:30 Lyrica PO 100 mg Q8 [facility] Administration - Patient Studies Lab Studies: Lab Studies 01/17/17 01/16/17 01/16/17 Range/Units 04:37 21:07 15:34 POC Glucose (mg/dL) 168 H 208 H 126 H (65-110) mg/dL 01/16/17 Range/Units 11:01 POC Glucose (mg/dL) 128 H (65-110) mg/dL Laboratory Results - last 24 hr 01/16/17 01/16/17 01/16/17 11:01 15:34 21:07 POC Glucose (mg/dL) 128 H 126 H 208 H 01/17/17 04:37 POC Glucose (mg/dL) 168 H Fingerstick Blood Sugar Results: 168 Critical Care Progress Note - Nutrition Nutrition: Nutrition Category Date Time Status Heart Healthy Diet [DIET] Diets 01/16/17 Dinner Active Assessment/Plan (1) Carotid artery stenosis Current Visit: Yes Status: Acute (2) DVT prophylaxis Current Visit: Yes Status: Acute (3) Diabetes mellitus type 2 in obese Current Visit: Yes Status: Acute (4) Syncope Current Visit: Yes Status: Acute
[2017-01-17] MEDS: Pravastatin Sodium 40 MG TAB PO SCH (21:41)
[2017-01-17] MEDS: Insulin Detemir 100 Units/ml Inj SC SCH (21:42)
[2017-01-18] MEDS: Clindamycin 600 MG in Sodium Chloride 0.9% 100 ML IVPB SCH ×3 (00:34→17:50)
[2017-01-18] MEDS: Insulin Lispro (humaLOG) 100 Units/ml Inj SC SCH ×7 (06:31→22:35)
[2017-01-18] MEDS: SILVASORB ANTIMICROBIAL WOUND GEL TP SCH (08:22)
--- NOTE | 2017-01-18 08:53 | CP.PCM.PN ---
Subjective - Date & Time of Evaluation Date of Evaluation: 01/18/17 Time of Evaluation: 06:23 - Subjective Subjective: SURGERY NOTE FOR DR. SALEH 56F seen and examined at bedside. JETT. Patient has no complaints, no new focal deficits. Objective - Vital Signs/Intake and Output Vital Signs (last 24 hours): Temp Pulse Resp BP Pulse Ox 97.8 F 69 20 143/67 97 01/18/17 04:06 01/18/17 08:22 01/18/17 04:06 01/18/17 08:22 01/18/17 04:06 Intake and Output: 01/18/17 01/18/17 06:59 18:59 Intake Total 420 Output Total 550 Balance -130 - Medications Medications: Current Medications Aspirin (Ecotrin) 81 mg PO DAILY [facility] Last Admin: 01/18/17 08:19 Dose: 81 mg Clopidogrel Bisulfate (Plavix) 75 mg PO DAILY [facility] Last Admin: 01/18/17 08:21 Dose: 75 mg Dextrose (Dextrose 50% Inj) 0 ml IV STAT PRN; Protocol PRN Reason: Hyglycemia Protocol Dextrose (Glutose 15) 0 gm PO ONCE PRN; Protocol PRN Reason: Hypoglycemia Protocol Duloxetine HCl (Cymbalta) 60 mg PO HS [facility] Last Admin: 01/17/17 21:41 Dose: 60 mg Glucagon (Glucagen Diagnostic Kit) 0 mg IM STAT PRN; Protocol PRN Reason: Hypoglycemia Protocol Heparin Sodium (Porcine) (Heparin) 5,000 units SC Q8 [facility] PRN Reason: Protocol Last Admin: 01/18/17 08:19 Dose: 5,000 units Hydrochlorothiazide (Hydrodiuril) 25 mg PO DAILY [facility] Last Admin: 01/18/17 08:21 Dose: 25 mg Hydromorphone HCl (Dilaudid) 0.5 mg IVP Q3H PRN PRN Reason: Pain, moderate (4-7) Sodium Nitroprusside 50 mg/ (Dextrose) 252 mls @ 9.13 mls/hr IV .Q24H [facility]; 0.3 MCG/KG/MIN PRN Reason: Protocol Phenylephrine HCl 10 mg/ (Sodium Chloride) 251 mls @ 30.12 mls/hr IV .Q8H20M [facility]; 20 MCG/MIN PRN Reason: Protocol Clindamycin Phosphate 600 mg/ (Sodium Chloride) 104 mls @ 104 mls/hr IVPB Q8 [facility] Last Admin: 01/18/17 08:18 Dose: 104 mls/hr Insulin Detemir (Levemir) 40 units SC [facility] Last Admin: 01/17/17 21:42 Dose: 40 units Insulin Human Lispro (Humalog) 0 units SC ACHS [facility] PRN Reason: Protocol Last Admin: 01/18/17 06:31 Dose: Not Given Insulin Human Lispro (Humalog) 14 units SC AC [facility] Last Admin: 01/18/17 08:20 Dose: 14 units Lisinopril (Zestril) 20 mg PO DAILY [facility] Last Admin: 01/18/17 08:22 Dose: 20 mg Ondansetron HCl (Zofran Inj) 4 mg IVP Q4H PRN PRN Reason: Nausea/Vomiting Oxycodone/Acetaminophen (Percocet 5/325 Mg Tab) 2 tab PO Q4 PRN PRN Reason: Pain, moderate (4-7) Stop: 01/18/17 18:02 Last Admin: 01/17/17 02:50 Dose: 2 tab Pravastatin Sodium (Pravachol) 40 mg PO [facility] Last Admin: 01/17/17 21:41 Dose: 40 mg Pregabalin (Lyrica) 100 mg PO Q8 [facility] Last Admin: 01/18/17 08:28 Dose: 100 mg - Labs Labs: 01/16/17 04:20 01/16/17 04:20 PT 11.6 Seconds (9.8-13.1) 01/15/17 05:55 INR 1.0 (0.9-1.2) 01/15/17 05:55 APTT 41.5 Seconds (25.6-37.1) H 01/15/17 05:55 - Constitutional Appears: Non-toxic, No Acute Distress - Neck Exam Additional comments: left neck site of incision, clean dry intact, no hematoma, small area of ecchymosis - Respiratory Exam Respiratory Exam: Clear to Ausculation Bilateral, NORMAL BREATHING PATTERN - Cardiovascular Exam Cardiovascular Exam: REGULAR RHYTHM, +S1, +S2 - Neurological Exam Neurological Exam: Alert, Awake Assessment and Plan - Assessment and Plan (Free Text) Assessment: 56F s/p Left carotid endarterectomy with patch angioplasty, POD #3 -Pt is clear for discharge from our standpoint but will likely remain in hospital for IV abx for Osteomyelitis of foot -Patient to go for PICC line for outpatient IV abx -Continue Plavix/ASA daily upon discharge -DVT prophylaxis Further recs discuss with Dr. Robin Robert, PGY1
--- NOTE | 2017-01-18 10:25 | CP.PCM.PN ---
Subjective - Date & Time of Evaluation Date of Evaluation: 01/18/17 Time of Evaluation: 10:25 - Subjective Subjective: 56 year old female patient seen at bedside in the ICU this morning for R foot chronic plantar wound. Patient is in the ICU for monitoring following her carotid endarterectomy on 01/15. Patient is resting comfortably, AAOx3 and NAD. Patient states she is still feeling weak from the procedure but denies N/V/F/D/ SOB/CP. Patient denies having any pain to her right foot. Patient states she expects to be leaving soon once her PICC line is placed. No other pedal complaints at this time. Objective - Vital Signs/Intake and Output Vital Signs (last 24 hours): Temp Pulse Resp BP Pulse Ox 98.4 F 69 11 L 143/67 99 01/18/17 09:00 01/18/17 09:00 01/18/17 09:00 01/18/17 09:00 01/18/17 09:00 Intake and Output: 01/18/17 01/18/17 06:59 18:59 Intake Total 420 0 Output Total 550 0 Balance -130 0 - Medications Medications: Current Medications Aspirin (Ecotrin) 81 mg PO DAILY [facility] Last Admin: 01/18/17 08:19 Dose: 81 mg Clopidogrel Bisulfate (Plavix) 75 mg PO DAILY [facility] Last Admin: 01/18/17 08:21 Dose: 75 mg Dextrose (Dextrose 50% Inj) 0 ml IV STAT PRN; Protocol PRN Reason: Hyglycemia Protocol Dextrose (Glutose 15) 0 gm PO ONCE PRN; Protocol PRN Reason: Hypoglycemia Protocol Duloxetine HCl (Cymbalta) 60 mg PO HS [facility] Last Admin: 01/17/17 21:41 Dose: 60 mg Glucagon (Glucagen Diagnostic Kit) 0 mg IM STAT PRN; Protocol PRN Reason: Hypoglycemia Protocol Heparin Sodium (Porcine) (Heparin) 5,000 units SC Q8 [facility] PRN Reason: Protocol Last Admin: 01/18/17 08:19 Dose: 5,000 units Hydrochlorothiazide (Hydrodiuril) 25 mg PO DAILY [facility] Last Admin: 01/18/17 08:21 Dose: 25 mg Hydromorphone HCl (Dilaudid) 0.5 mg IVP Q3H PRN PRN Reason: Pain, moderate (4-7) Sodium Nitroprusside 50 mg/ (Dextrose) 252 mls @ 9.13 mls/hr IV .Q24H [facility]; 0.3 MCG/KG/MIN PRN Reason: Protocol Phenylephrine HCl 10 mg/ (Sodium Chloride) 251 mls @ 30.12 mls/hr IV .Q8H20M [facility]; 20 MCG/MIN PRN Reason: Protocol Clindamycin Phosphate 600 mg/ (Sodium Chloride) 104 mls @ 104 mls/hr IVPB Q8 [facility] Last Admin: 01/18/17 08:18 Dose: 104 mls/hr Insulin Detemir (Levemir) 40 units SC [facility] Last Admin: 01/17/17 21:42 Dose: 40 units Insulin Human Lispro (Humalog) 0 units SC ACHS [facility] PRN Reason: Protocol Last Admin: 01/18/17 06:31 Dose: Not Given Insulin Human Lispro (Humalog) 14 units SC AC [facility] Last Admin: 01/18/17 08:20 Dose: 14 units Lisinopril (Zestril) 20 mg PO DAILY [facility] Last Admin: 01/18/17 08:22 Dose: 20 mg Ondansetron HCl (Zofran Inj) 4 mg IVP Q4H PRN PRN Reason: Nausea/Vomiting Oxycodone/Acetaminophen (Percocet 5/325 Mg Tab) 2 tab PO Q4 PRN PRN Reason: Pain, moderate (4-7) Stop: 01/18/17 18:02 Last Admin: 01/17/17 02:50 Dose: 2 tab Pravastatin Sodium (Pravachol) 40 mg PO [facility] Last Admin: 01/17/17 21:41 Dose: 40 mg Pregabalin (Lyrica) 100 mg PO Q8 [facility] Last Admin: 01/18/17 08:28 Dose: 100 mg - Labs Labs: 01/16/17 04:20 01/16/17 04:20 PT 11.6 Seconds (9.8-13.1) 01/15/17 05:55 INR 1.0 (0.9-1.2) 01/15/17 05:55 APTT 41.5 Seconds (25.6-37.1) H 01/15/17 05:55 - Constitutional Appears: Well, Non-toxic, No Acute Distress - Extremities Exam Additional comments: Right lower extremity focused examination: Vasc: DP and PT pulses palpable 1/4. CFT < 4 seconds. TG warm to warm. No edema noted. Neuro: Protective sensation grossly diminished. Derm: Ulceration noted to plantar lateral aspect of right foot measuring approximately 3.4 x 2.5 x 0.5 cm. Wound base is approximately 80% granular and 20% fibrotic with no drainage noted and a hyperkeratotic rim. No tunneling, undermining, probe to bone, purulence, malodor, fluctuance noted. Ortho: No pain on palpation noted to plantar lateral R foot. - Neurological Exam Neurological Exam: Alert, Awake, Oriented x3 - Psychiatric Exam Psychiatric exam: Normal Affect, Normal Mood Assessment and Plan - Assessment and Plan (Free Text) Assessment: 56 year old female patient seen at bedside in ICU with chronic non-infected R foot ulceration secondary to neuropathy Plan: Patient seen and evaluated at bedside. Discussed plan in detail with attending Dr. Kaur Charts, labs, and vitals reviewed: afebrile, WBC WNL @ 8.9 as of 01/16. Silvasorb applied to R foot ulceration and dressed with adaptic, 4x4s, and kerlix. Patient is to continue PWB to her right foot. Awaiting re-order of lower extremity U/S. Awaiting PICC line placement Pt to be discharged following ID recs for abx Pt will follow up in the wound care center after discharge -Patient is stable per podiatry. -Podiatry will continue to follow while in-house.
--- NOTE | 2017-01-18 13:13 | CP.PCM.PN ---
Subjective - Date & Time of Evaluation Date of Evaluation: 01/18/17 Time of Evaluation: 13:14 - Subjective Subjective: I D NOTE AFTER REVIEWING CHART ONCE AGAIN WOULD TREAT 6 WEEKS (total).WOULD GIVE IV ROCEPHEN 2 GM IVPB Q24H FOR GRAM NEGATIVE COVERAGE AND FOR STAPHYLOCOCCUS COVERAGE (as she is allergic to vancomycin) WOULD GIVE ZYVOX (LINZELOID) 600 MG BID PO AND MAY GIVE PO IT GIVES GOOD CONCENTRATION IN BONE WHEN GIVEN ORALLY HOPEFULLY INSURANCE WILL COVER ZYVOX ORALLY THIS PATIENT HAS A HAS A CHECKERED HISTORY OF PENITENTIARY TREATMENT OF OSTEOMYELITIS CONTINUE IV RX UNTIL READY FOR DISCHARGE TO HOME Objective - Vital Signs/Intake and Output Vital Signs (last 24 hours): Temp Pulse Resp BP Pulse Ox 98 F 71 20 131/73 96 01/18/17 12:36 01/18/17 12:36 01/18/17 12:36 01/18/17 12:36 01/18/17 12:36 Intake and Output: 01/18/17 01/18/17 06:59 18:59 Intake Total 420 0 Output Total 550 0 Balance -130 0 - Medications Medications: Current Medications Aspirin (Ecotrin) 81 mg PO DAILY [facility] Last Admin: 01/18/17 08:19 Dose: 81 mg Clopidogrel Bisulfate (Plavix) 75 mg PO DAILY [facility] Last Admin: 01/18/17 08:21 Dose: 75 mg Dextrose (Dextrose 50% Inj) 0 ml IV STAT PRN; Protocol PRN Reason: Hyglycemia Protocol Dextrose (Glutose 15) 0 gm PO ONCE PRN; Protocol PRN Reason: Hypoglycemia Protocol Duloxetine HCl (Cymbalta) 60 mg PO HS [facility] Last Admin: 01/17/17 21:41 Dose: 60 mg Glucagon (Glucagen Diagnostic Kit) 0 mg IM STAT PRN; Protocol PRN Reason: Hypoglycemia Protocol Heparin Sodium (Porcine) (Heparin) 5,000 units SC Q8 [facility]II PRN Reason: Protocol Last Admin: 01/18/17 08:19 Dose: 5,000 units Hydrochlorothiazide (Hydrodiuril) 25 mg PO DAILY [facility] Last Admin: 01/18/17 08:21 Dose: 25 mg Hydromorphone HCl (Dilaudid) 0.5 mg IVP Q3H PRN PRN Reason: Pain, moderate (4-7) Sodium Nitroprusside 50 mg/ (Dextrose) 252 mls @ 9.13 mls/hr IV .Q24H MARII; 0.3 MCG/KG/MIN PRN Reason: Protocol Phenylephrine HCl 10 mg/ (Sodium Chloride) 251 mls @ 30.12 mls/hr IV .Q8H20M MARII; 20 MCG/MIN PRN Reason: Protocol Clindamycin Phosphate 600 mg/ (Sodium Chloride) 104 mls @ 104 mls/hr IVPB Q8 [facility] Last Admin: 01/18/17 08:18 Dose: 104 mls/hr Insulin Detemir (Levemir) 40 units SC HS [facility] Last Admin: 01/17/17 21:42 Dose: 40 units Insulin Human Lispro (Humalog) 0 units SC ACHS [facility] PRN Reason: Protocol Last Admin: 01/18/17 12:46 Dose: 4 unit Insulin Human Lispro (Humalog) 14 units SC AC [facility] Last Admin: 01/18/17 12:46 Dose: 14 units Lisinopril (Zestril) 20 mg PO DAILY [facility] Last Admin: 01/18/17 08:22 Dose: 20 mg Ondansetron HCl (Zofran Inj) 4 mg IVP Q4H PRN PRN Reason: Nausea/Vomiting Oxycodone/Acetaminophen (Percocet 5/325 Mg Tab) 2 tab PO Q4 PRN PRN Reason: Pain, moderate (4-7) Stop: 01/18/17 18:02 Last Admin: 01/17/17 02:50 Dose: 2 tab Pravastatin Sodium (Pravachol) 40 mg PO HS [facility] Last Admin: 01/17/17 21:41 Dose: 40 mg Pregabalin (Lyrica) 100 mg PO Q8 [facility] Last Admin: 01/18/17 08:28 Dose: 100 mg - Labs Labs: 01/16/17 04:20 01/16/17 04:20 PT 11.6 Seconds (9.8-13.1) 01/15/17 05:55 INR 1.0 (0.9-1.2) 01/15/17 05:55 APTT 41.5 Seconds (25.6-37.1) H 01/15/17 05:55
[2017-01-18] MEDS: Oxycodone/Acetaminophen 5/325 mg Tab PO PRN ×2 (18:03→23:10)
[2017-01-18] MEDS ORDERED: Insulin Detemir 100 Units/ml Inj SC SCH (22:00)
[2017-01-18] MEDS: Pravastatin Sodium 40 MG TAB PO SCH (22:33)
[2017-01-19 00:03] VITALS: RESP 18
[2017-01-19] MEDS: Clindamycin 600 MG in Sodium Chloride 0.9% 100 ML IVPB SCH ×2 (00:39→09:09)
[2017-01-19 06:41] LABS: ALB/GLOB RATIO 0.9 (1.0-2.1); ALT/SGPT 74 U/L (9-52); AST/SGOT 67 U/L (14-36); BLOOD UREA NITROGEN 22 mg/dl (7-17); CALCIUM 10.1 mg/dL (8.4-10.2); GFR AFRICAN-AMERICAN > 60; GFR NON-AFRICAN AMERICAN 51
--- NOTE | 2017-01-19 07:59 | CP.PCM.PN ---
Subjective - Date & Time of Evaluation Date of Evaluation: 01/19/17 Time of Evaluation: 07:56 - Subjective Subjective: 56 year old female patient seen at bedside this morning for R foot chronic plantar wound. Patient is AAOx3 and NAD. Pt states that she is having pain in her neck today and had hard time sleeping yesterday. Patient states she is still feeling weak from the recent procedure but denies N/V/F/D/SOB/CP. Patient denies having any pain to her right foot. Pt states that her PICC line is placed already. Pt's dressing is clean, dry and intact. Denies of any new pedal complains at this time. Objective - Vital Signs/Intake and Output Vital Signs (last 24 hours): Temp Pulse Resp BP Pulse Ox 98 F 74 18 101/63 99 01/19/17 00:02 01/19/17 00:02 01/19/17 00:02 01/19/17 00:02 01/19/17 00:02 Intake and Output: 01/19/17 01/19/17 06:59 18:59 Intake Total 200 Output Total 0 Balance 200 - Medications Medications: Current Medications Aspirin (Ecotrin) 81 mg PO DAILY [facility] Last Admin: 01/18/17 08:19 Dose: 81 mg Clopidogrel Bisulfate (Plavix) 75 mg PO DAILY [facility] Last Admin: 01/18/17 08:21 Dose: 75 mg Dextrose (Dextrose 50% Inj) 0 ml IV STAT PRN; Protocol PRN Reason: Hyglycemia Protocol Dextrose (Glutose 15) 0 gm PO ONCE PRN; Protocol PRN Reason: Hypoglycemia Protocol Duloxetine HCl (Cymbalta) 60 mg PO HS [facility] Last Admin: 01/18/17 22:33 Dose: 60 mg Glucagon (Glucagen Diagnostic Kit) 0 mg IM STAT PRN; Protocol PRN Reason: Hypoglycemia Protocol Heparin Sodium (Porcine) (Heparin) 5,000 units SC Q8 [facility] PRN Reason: Protocol Last Admin: 01/19/17 00:39 Dose: 5,000 units Hydrochlorothiazide (Hydrodiuril) 25 mg PO DAILY [facility] Last Admin: 01/18/17 08:21 Dose: 25 mg Clindamycin Phosphate 600 mg/ (Sodium Chloride) 104 mls @ 104 mls/hr IVPB Q8 [facility] Last Admin: 01/19/17 00:39 Dose: 104 mls/hr Ceftriaxone Sodium 1 gm/ (Sodium Chloride) 100 mls @ 100 mls/hr IVPB DAILY [facility] Insulin Detemir (Levemir) 44 units SC HS [facility] Last Admin: 01/18/17 22:33 Dose: 44 unit Insulin Human Lispro (Humalog) 0 units SC ACHS [facility] PRN Reason: Protocol Last Admin: 01/18/17 22:35 Dose: Not Given Insulin Human Lispro (Humalog) 16 units SC [facility] Lisinopril (Zestril) 20 mg PO DAILY [facility] Last Admin: 01/18/17 08:22 Dose: 20 mg Ondansetron HCl (Zofran Inj) 4 mg IVP Q4H PRN PRN Reason: Nausea/Vomiting Oxycodone/Acetaminophen (Percocet 5/325 Mg Tab) 2 tab PO Q4 PRN PRN Reason: Pain, severe (8-10) Stop: 01/21/17 22:47 Last Admin: 01/18/17 23:10 Dose: 2 tab Pravastatin Sodium (Pravachol) 40 mg PO [facility] Last Admin: 01/18/17 22:33 Dose: 40 mg Pregabalin (Lyrica) 100 mg PO Q8 [facility] Last Admin: 01/19/17 00:39 Dose: 100 mg - Labs Labs: 01/16/17 04:20 01/19/17 05:30 PT 11.6 Seconds (9.8-13.1) 01/15/17 05:55 INR 1.0 (0.9-1.2) 01/15/17 05:55 APTT 41.5 Seconds (25.6-37.1) H 01/15/17 05:55 - Constitutional Appears: Well, Non-toxic, No Acute Distress - Extremities Exam Additional comments: Vasc: DP and PT pulses palpable 1/4. CFT < 4 seconds. TG warm to warm. No pitting or non-pitting edema noted, no erythema Derm: Ulceration noted to plantar lateral aspect of right foot measuring approximately 3.4 x 2.5 x 0.5 cm. Wound base is approximately 80% granular and 20% fibrotic with mild serous drainage. Periwound hyperkeratotic rim noted. No tunneling, undermining, probe to bone, purulence, malodor, fluctuance noted. Neuro: Protective sensation grossly diminished. Ortho: No pain on palpation noted to plantar lateral R foot. - Neurological Exam Neurological Exam: Alert, Awake, Oriented x3 - Psychiatric Exam Psychiatric exam: Normal Affect, Normal Mood Assessment and Plan - Assessment and Plan (Free Text) Assessment: 56 year old female patient seen at bedside with chronic non-infected R foot ulceration secondary to neuropathy Plan: Patient seen and evaluated at bedside. Discussed plan in detail with attending Dr. Kaur Charts, labs, and vitals reviewed: afebrile, WBC WNL @ 8.9 as of 01/16. Silvasorb applied to R foot ulceration and dressed with adaptic, 4x4s, and kerlix. Patient is to continue PWB to her right foot. Awaiting re-order of lower extremity U/S. Pt to be placed on 6 weeks (total) of IV Rocephen 2 gm and PO Linzeloid [address] Verde Pt will follow up in the wound care center after discharge Patient is stable per podiatry. Podiatry will continue to follow while in-house.
[2017-01-19 08:08] VITALS: BP 106/63; PULSE 83; TEMP 98.2; O2SAT 96
--- NOTE | 2017-01-19 08:10 | CP.PCM.PN ---
Subjective - Date & Time of Evaluation Date of Evaluation: 01/19/17 Time of Evaluation: 06:30 - Subjective Subjective: VASCULAR SURGERY PROGRESS NOTE FOR DR. KELLY Patient seen and examined at bedside. She had a headache this AM but it has since resolved. She denies numbness, tingling, or blurred vision. Objective - Vital Signs/Intake and Output Vital Signs (last 24 hours): Temp Pulse Resp BP Pulse Ox 98 F 74 18 101/63 99 01/19/17 00:02 01/19/17 00:02 01/19/17 00:02 01/19/17 00:02 01/19/17 00:02 Intake and Output: 01/19/17 01/19/17 06:59 18:59 Intake Total 200 Output Total 0 Balance 200 - Medications Medications: Current Medications Aspirin (Ecotrin) 81 mg PO DAILY [facility] Last Admin: 01/18/17 08:19 Dose: 81 mg Clopidogrel Bisulfate (Plavix) 75 mg PO DAILY [facility] Last Admin: 01/18/17 08:21 Dose: 75 mg Dextrose (Dextrose 50% Inj) 0 ml IV STAT PRN; Protocol PRN Reason: Hyglycemia Protocol Dextrose (Glutose 15) 0 gm PO ONCE PRN; Protocol PRN Reason: Hypoglycemia Protocol Duloxetine HCl (Cymbalta) 60 mg PO HS [facility] Last Admin: 01/18/17 22:33 Dose: 60 mg Glucagon (Glucagen Diagnostic Kit) 0 mg IM STAT PRN; Protocol PRN Reason: Hypoglycemia Protocol Heparin Sodium (Porcine) (Heparin) 5,000 units SC Q8 [facility] PRN Reason: Protocol Last Admin: 01/19/17 00:39 Dose: 5,000 units Hydrochlorothiazide (Hydrodiuril) 25 mg PO DAILY [facility] Last Admin: 01/18/17 08:21 Dose: 25 mg Clindamycin Phosphate 600 mg/ (Sodium Chloride) 104 mls @ 104 mls/hr IVPB Q8 [facility] Last Admin: 01/19/17 00:39 Dose: 104 mls/hr Ceftriaxone Sodium 1 gm/ (Sodium Chloride) 100 mls @ 100 mls/hr IVPB DAILY [facility] Insulin Detemir (Levemir) 44 units SC HS [facility] Last Admin: 01/18/17 22:33 Dose: 44 unit Insulin Human Lispro (Humalog) 0 units SC ACHS [facility] PRN Reason: Protocol Last Admin: 01/18/17 22:35 Dose: Not Given Insulin Human Lispro (Humalog) 16 units SC [facility] Lisinopril (Zestril) 20 mg PO DAILY [facility] Last Admin: 01/18/17 08:22 Dose: 20 mg Ondansetron HCl (Zofran Inj) 4 mg IVP Q4H PRN PRN Reason: Nausea/Vomiting Oxycodone/Acetaminophen (Percocet 5/325 Mg Tab) 2 tab PO Q4 PRN PRN Reason: Pain, severe (8-10) Stop: 01/21/17 22:47 Last Admin: 01/18/17 23:10 Dose: 2 tab Pravastatin Sodium (Pravachol) 40 mg PO HS [facility] Last Admin: 01/18/17 22:33 Dose: 40 mg Pregabalin (Lyrica) 100 mg PO Q8 [facility] Last Admin: 01/19/17 00:39 Dose: 100 mg - Labs Labs: 01/16/17 04:20 01/19/17 05:30 PT 11.6 Seconds (9.8-13.1) 01/15/17 05:55 INR 1.0 (0.9-1.2) 01/15/17 05:55 APTT 41.5 Seconds (25.6-37.1) H 01/15/17 05:55 - Constitutional Appears: Non-toxic, No Acute Distress - Head Exam Head Exam: ATRAUMATIC, NORMAL INSPECTION - Neck Exam Additional comments: Left neck incision with steri strips in place - Respiratory Exam Respiratory Exam: NORMAL BREATHING PATTERN. absent: Respiratory Distress - Cardiovascular Exam Cardiovascular Exam: +S1, +S2 - Extremities Exam Additional comments: Muscle strength 5/5 in bilat upper extremities - Neurological Exam Neurological Exam: Alert, Awake Additional comments: No tongue deviation Assessment and Plan - Assessment and Plan (Free Text) Assessment: 56yo F with carotid artery stenosis s/p left carotid endarterectomy with patch angioplasty, POD#4 - Patient clear for discharge from our standpoint but has remained in hospital for IV Antibiotics for osteomyelitis of foot - Continue Plavix/Asprin daily upon discharge - Follow up with Dr. Kelly as outpatient in 2 weeks - DVT prophylaxis - Discussed plan with Dr. Robin Hart PGY-2
[2017-01-19] MEDS: Insulin Lispro (humaLOG) 100 Units/ml Inj SC SCH ×4 (09:11→11:51)
[2017-01-19] MEDS: SILVASORB ANTIMICROBIAL WOUND GEL TP SCH (09:12)
[2017-01-19] MEDS: Oxycodone/Acetaminophen 5/325 mg Tab PO PRN (09:28)
[2017-01-19] MEDS ORDERED: Lidocaine 1% Inj (20ml) ONE (12:14)
--- NOTE | 2017-01-19 12:33 | PCM.SURG1 ---
Surgeon's Initial Post Op Note - Surgeon's Notes Surgeon: Jada [address] Supervisor: None Type of Anesthesia: Local Pre-Operative Diagnosis: Foot infection Operative Findings: Patent right Basilic vein Post-Operative Diagnosis: Foot infection Operation Performed: Right basilic vein 35cm 4F SL PICC placed with tip at the SVC/RA junction Specimen/Specimens Removed: None Estimated Blood Loss: EBL {In ML}: 1 Date of Surgery/Procedure: 01/19/17 Time of Surgery/Procedure: 12:20
--- NOTE | 2017-01-19 13:42 | VASCULAR ---
PROCEDURE: Date of procedure: 01/19/2017 Procedure: 1. Placement of a right arm PICC with ultrasound and fluoroscopic guidance, CPT 56301 2. PICC tip confirmation with spot radiograph and is in the superior vena cava Medications: 1 percent lidocaine Total Fluoro time: 6.2 seconds Radiation: 0.77 mGy EBL: 2 cc HISTORY: Infection requiring long-term IV antibiotics TECHNIQUE: Following informed consent and procedure time-out, the patient was placed supine on the interventional table and the right arm prepped and draped in the usual sterile fashion. Ultrasound showed a patent and compressible right basilic vein. After the skin was anesthetized with lidocaine, the basilic vein was accessed with micro micropuncture technique using ultrasound guidance. A guidewire was then advanced under fluoroscopic guidance into the superior vena cava. An image documenting ultrasound guidance for vascular access was permanently saved. The length of the single-lumen 4 [place] PICC was trimmed to 35 centimeters and advanced through a peel-away sheath. The PICC was position with tip of PICC confirm a spot radiograph the superior vena cava. The PICC was secured to the patient's skin. The PICC was flushed. A biopatch and sterile dressing was applied. IMPRESSION: Placement of a single-lumen 4 [place] PICC trimmed to 34 centimeters via right basilic vein. The tip of the PICC is confirmed with spot radiograph and is in the superior vena cava.
--- NOTE | 2017-01-19 13:51 | CP.PCM.DIS ---
Provider - Provider Date of Admission: 01/06/17 10:15 Attending physician: Pavel Willoughby MD Primary care physician: Deven Smith MD Diagnosis - Discharge Diagnosis (1) Carotid artery stenosis Status: Acute (2) Syncope Status: Acute (3) Diabetes mellitus type 2 in obese Status: Acute (4) UTI (urinary tract infection) Status: Acute (5) Hyperlipidemia Status: Chronic (6) Hypertension Status: Chronic Hospital Course - Lab Results Lab Results: Micro Results 01/15/17 06:50 Nose MRSA Culture (Admit) - Final MRSA NOT DETECTED Most Recent Lab Values WBC 8.9 K/uL (4.8-10.8) 01/16/17 04:20 RBC 3.55 Mil/uL (3.80-5.20) L 01/16/17 04:20 Hgb 11.0 g/dL (12.0-16.0) L 01/16/17 04:20 Hct 33.1 % (34.0-47.0) L 01/16/17 04:20 MCV 93.3 fl (81.0-99.0) 01/16/17 04:20 MCH 31.0 pg (27.0-31.0) 01/16/17 04:20 MCHC 33.2 g/dL (33.0-37.0) 01/16/17 04:20 RDW 14.7 % (11.5-14.5) H 01/16/17 04:20 Plt Count 184 K/uL (130-400) 01/16/17 04:20 MPV 9.6 fl (7.2-11.7) 01/15/17 05:55 Neut % (Auto) 71.0 % (50.0-75.0) 01/15/17 05:55 Lymph % (Auto) 17.3 % (20.0-40.0) L 01/15/17 05:55 [place] % (Auto) 9.3 % (0.0-10.0) 01/15/17 05:55 Eos % (Auto) 1.2 % (0.0-4.0) 01/15/17 05:55 Baso % (Auto) 1.2 % (0.0-2.0) 01/15/17 05:55 Neut # 4.6 K/uL (1.8-7.0) 01/15/17 05:55 Lymph # 1.1 K/uL (1.0-4.3) 01/15/17 05:55 [place] # 0.6 K/uL (0.0-0.8) 01/15/17 05:55 Eos # 0.1 K/uL (0.0-0.7) 01/15/17 05:55 Baso # 0.1 K/uL (0.0-0.2) 01/15/17 05:55 PT 11.6 Seconds (9.8-13.1) 01/15/17 05:55 INR 1.0 (0.9-1.2) 01/15/17 05:55 APTT 41.5 Seconds (25.6-37.1) H 01/15/17 05:55 Sodium 137 mmol/l (132-148) 01/19/17 05:30 Potassium 5.1 MMOL/L (3.6-5.0) H 01/19/17 05:30 Chloride 98 mmol/L (98-107) 01/19/17 05:30 Carbon Dioxide 28 mmol/L (22-30) 01/19/17 05:30 Anion Gap 16 (10-20) 01/19/17 05:30 BUN 22 mg/dl (7-17) H 01/19/17 05:30 Creatinine 1.1 mg/dL (0.7-1.2) 01/19/17 05:30 Est GFR ( Amer) > 60 01/19/17 05:30 Est GFR (Non-Af Amer) 51 01/19/17 05:30 POC Glucose (mg/dL) 379 mg/dL (65-110) H 01/19/17 11:13 Random Glucose 206 mg/dL (65-105) H 01/19/17 05:30 Hemoglobin A1c 9.7 % (4.2-6.5) H 01/08/17 06:15 Lactic Acid 1.4 MMOL/L (0.7-2.1) 01/06/17 03:24 Calcium 10.1 mg/dL (8.4-10.2) 01/19/17 05:30 Total Bilirubin 0.7 mg/dl (0.2-1.3) 01/19/17 05:30 AST 67 U/L (14-36) H D 01/19/17 05:30 ALT 74 U/L (9-52) H D 01/19/17 05:30 Alkaline Phosphatase 491 U/L (38-126) H 01/19/17 05:30 Troponin I < 0.0120 ng/mL (0.00-0.120) 01/06/17 13:00 Total Protein 8.4 G/DL (6.3-8.2) H 01/19/17 05:30 Albumin 4.0 g/dL (3.5-5.0) 01/19/17 05:30 Globulin 4.4 gm/dL (2.2-3.9) H 01/19/17 05:30 Albumin/Globulin Ratio 0.9 (1.0-2.1) L 01/19/17 05:30 Triglycerides 200 mg/DL (0-149) H 01/08/17 06:15 Cholesterol 165 mg/dL (0-199) 01/08/17 06:15 LDL Cholesterol Direct 93 mg/dL (0-129) 01/08/17 06:15 HDL Cholesterol 27 MG/DL (30-70) L 01/08/17 06:15 TSH 3rd Generation 0.31 mIU/ML (0.46-4.68) L 01/08/17 06:15 Urine Color Yellow (YELLOW) 01/06/17 06:00 Urine Clarity Cloudy (Clear) 01/06/17 06:00 Urine pH 5.0 (5.0-8.0) 01/06/17 06:00 Ur Specific [place] 1.011 (1.003-1.030) 01/06/17 06:00 Urine Protein 30 mg/dL (NEGATIVE) 01/06/17 06:00 Urine Glucose (UA) >=500 mg/dL (Normal) 01/06/17 06:00 Urine Ketones Negative mg/dL (NEGATIVE) 01/06/17 06:00 Urine Blood Small (NEGATIVE) 01/06/17 06:00 Urine Nitrate Negative (NEGATIVE) 01/06/17 06:00 Urine Bilirubin Negative (NEGATIVE) 01/06/17 06:00 Urine Urobilinogen 0.2-1.0 mg/dL (0.2-1.0) 01/06/17 06:00 Ur Leukocyte Esterase Large Kari/uL (Negative) 01/06/17 06:00 Urine RBC (Auto) 2 /hpf (0-3) 01/06/17 06:00 Urine WBC Clumps (Auto) Many /hpf (NONE) H 01/06/17 06:00 Urine Microscopic WBC 101 /hpf (0-5) H 01/06/17 06:00 Ur Squamous Epith Cells 1 /hpf (0-5) 01/06/17 06:00 Urine Bacteria Occ (<OCC) H 01/06/17 06:00 Hyaline Casts 3-5 /hpf (0-2) H 01/06/17 06:00 Urine Opiates Screen Positive (NEGATIVE) H 01/06/17 06:00 Urine Methadone Screen Negative (NEGATIVE) 01/06/17 06:00 Ur Barbiturates Screen Negative (NEGATIVE) 01/06/17 06:00 Ur Phencyclidine Scrn Negative (NEGATIVE) 01/06/17 06:00 Ur Amphetamines Screen Negative (NEGATIVE) 01/06/17 06:00 U Benzodiazepines Scrn Negative (NEGATIVE) 01/06/17 06:00 U Oth Cocaine Metabols Negative (NEGATIVE) 01/06/17 06:00 U Cannabinoids Screen Negative (NEGATIVE) 01/06/17 06:00 Blood Type A POSITIVE 01/14/17 17:48 Blood Type Confirm A POSITIVE 01/14/17 19:47 Antibody Screen Negative 01/14/17 17:48 Crossmatch See Detail 01/14/17 17:48 BBK History Checked No verified bt 01/14/17 17:48 - Hospital Course Hospital Course: This is a 56 y/o female admitted for syncope. She was noted to be in severe dehydration and had acute renal injury. She was also noted to have severe occlusion of the Left ICA. Discharge Exam - Head Exam Head Exam: ATRAUMATIC, NORMAL INSPECTION Discharge Plan - Discharge Medications Prescriptions: Aspirin [Ecotrin] 81 mg PO DAILY #30 Clopidogrel [Plavix] 75 mg PO DAILY #30 tab cefTRIAXone [Rocephin] 2 gm IV DAILY #28 vial Linezolid [Zyvox] 600 mg PO BID #84 tab - Follow Up Plan Condition: FAIR Disposition: HOME/ ROUTINE Instructions: Carotid Endarterectomy (DC), Carotid Artery Disease (GEN), Peripherally Inserted Central Catheters and Midline Catheters (DC) Referrals: Collin Kelly MD [Medical Doctor] - Deven Smith MD [Primary Care Provider] -
--- NOTE | 2017-01-19 13:58 | CP.PCM.PCO ---
Assessment/Plan - Assessment/Plan Assessment (Free Text): Pt stable, seen and cleared for d/c home by all consultants. Pt had picc. All abx covered by insurance per . Pt to resume home meds and explained to pt to stop taking cymbalta while on Zyvox. Pt explained that she no longer takes cymbalta. Rx given for ASA and Plavix. Pt to f/u with Dr. Kelly in 1-2 weeks. Pt to f/u with Dr. Ley in 1 week for her glucose control and to f/u with PMD in 1 week. Pt states she take insulin at home, per Dr. Willoughby present with pt, pt to reduce dose of levemir and novolog and f/u with Dr. Ley. Pt verbalized understanding to d/c instructions but will not wait for written instructions on insulin. Pt left unit in safe condition. - Problems Patient Problems: Problem List (Active/Current) Problem Status Onset Code Acute on chronic renal failure Acute N17.9, N18.9 Carotid artery stenosis Acute I65.29 DVT prophylaxis Acute [id number] Dehydration Acute E86.0 Diabetes mellitus type 2 in obese Acute E11.69, E66.9 Syncope Acute R55 UTI (urinary tract infection) Acute N39.0 Diabetes Chronic E11.9
--- NOTE | 2017-02-20 21:05 | OP ---
PROCEDURE DATE: 01/15/2017 PREOPERATIVE DIAGNOSIS: Severe left carotid stenosis. POSTOPERATIVE DIAGNOSIS: Severe left carotid stenosis. PROCEDURE PERFORMED: Left carotid endarterectomy with patch angioplasty. SURGEON: Collin Kelly MD HAZMAT TRUCK DRIVER: Nannette Marshall DO, PGY2. CO-SURGEON: Gilbert Palomares MD TYPE OF ANESTHESIA: General endotracheal. OPERATIVE FINDINGS: Extensive soft left carotid atherosclerotic block. DRAINS: None. ESTIMATED BLOOD LOSS: 100 mL. POSTOPERATIVE CONDITION: Satisfactory. INDICATION FOR SURGERY: The patient is a 56-year-old female who was admitted to the emergency room of [facility] with an episode of loss of consciousness. The patient complained of second episode of this nature over last several weeks. She also complained of tingling and numb sensation in her right upper extremity. Otherwise she denies vertigo, chest pain, focal weakness, slurred speech, vision changes, or motor sensory deficits in her left upper or lower extremities. The patient has significant comorbidities and risk factors for peripheral arterial disease including poorly controlled type 2 diabetes and hypertension. The patient underwent total stroke workup and radiological workup of her brain revealed no acute intracranial pathology. MR angiogram of her neck showed severe left carotid stenosis measuring over 90%. Vascular surgical evaluation was requested by the primary team. I discussed findings of the MR angiogram with the patient along with the symptoms that brought her to the hospital. I could not rule out symptomatic left carotid disease based on her symptoms, although her presentation was not classic for carotid embolization. Be it as it may, the severity of her left carotid stenosis would warrant surgical intervention, which I offered to the patient. I was inclined to perform left carotid endarterectomy during same hospitalization given its possibly symptomatic nature. Risks and benefits of carotid endarterectomy were explained to the patient and her son in detail as well as the details of the operation itself. I mentioned risk of perioperative stroke and heart attack as well as damage to cranial nerves. I mentioned risk of recurrent carotid stenosis, which might require operations down the road. I mentioned risk of wound or patch infection as well. With risks and benefits of the operation clearly explained to the patient and understood by her, she decided to proceed with left carotid endarterectomy with patch angioplasty and signed informed consent. DESCRIPTION OF PROCEDURE: I evaluated the patient immediately before surgery. Neurologically, she was at her baseline and did not complain of new cognitive, motor, or sensory deficits. Left side of the patient's neck was marked with my initials and the patient was brought to the operating room. She was placed on the table and general endotracheal anesthesia was applied without difficulty. Donis catheter and radial arterial lines were placed. The patient's neck was hyperextended and head was to the turned to the right. Left side of the patient's face, neck, and chest were prepped and draped in sterile fashion. Ioban was applied to the skin. Next, approximately 4-cm long incision was made along the medial border of the sternal head of the left sternocleidal mastoid muscle. Dissection was carried down to the level of platysma and platysmal muscle was divided using electrocautery. Dissection was directed towards left carotid sheath. Left internal jugular vein was visualized and dissection proceeded cranially along the medial border of the vein until we encountered the wall of the left facial vein. Left facial was vein was divided between 2-0 silk sutures and hemoclipped on both sides. Division of the left facial vein exposed carotid bifurcation. Dissection proceeded caudally and left common carotid artery was dissected circumferentially and was secured approximately 3 cm proximally through bifurcation. Next, dissection proceeded cranially and left external carotid artery was identified. Left superior thyroid artery was dissected circumferentially and secured with double looped 0 silk tie and left external carotid was secured with vessel loop. Next, we turned attention to dissection of the left internal carotid artery. Both left carotid bulb and proximal segment of the left internal carotid artery were clearly involved with severe atherosclerotic disease. The cervical segment of the left internal carotid artery approximately 1 cm distal to bifurcation was soft and free of adverse atherosclerotic disease on gentle palpation for visual examination. Left internal carotid artery was dissected circumferentially and secured with vessel loop in its healthy portion. At this point, the patient was systemically heparinized with intravenous heparin. After 5 minutes of heparin left, internal common and external carotid arteries were clamped in this particular order. An 11-blade was used and arteriotomy was made extending from the left common carotid artery through carotid bulb onto the left internal carotid artery until healthy portion of the vessel was reached. The inside of the artery was examined and as expected there was steady irregular soft atherosclerotic plaque. At this point, we proceeded with placement of [place] shunt. Jamir tourniquets were used in the left internal and common carotid arteries and shunt was placed without difficulty. Intraoperative Doppler ultrasound was used to confirm flow of block through the shunt. Next, we proceeded with endarterectomy portion of the procedure. Endarterectomy tool was used to elevate atherosclerotic plaque and remove it. endarterectomy of the left external carotid artery was done and plaque came out nicely. The inside surface of the artery was examined and loose debris and Intimal flaps were removed meticulously. Peanut once again was used followed by heparinized saline irrigation and inside of the artery was found to be smooth and free of any loose debris or intimal segments. A 7-0 Prolene stitch was used to pack down intima of the internal carotid artery to prevent dissection. With intima being packed down nicely, we proceeded with patch angioplasty part of the operation. Dacron Hemashield patch was used. It was secured in place using running 6-0 Prolene stitch. Prior to completion of patch angioplasty, [place] shunt was removed. There was excellent inflow of blood through common carotid artery as well as brisk backbleeding from left internal and external carotid arteries. Patch angioplasty was completed and left carotid system was clamped starting with external carotids followed in by common and then internal carotid arteries in this order. Perfusion to left side of the brain was restored. There was excellent palpable pulse in the left carotid proximal to the patch as well as in the left internal carotid artery distal to the patch. Doppler was brought to the field and once again low resistance brisk Doppler sound was confirmed using the left internal carotid artery distal to the patch. At this point, we were ready to proceed with wound closure. The wound was irrigated with heparinized saline and electrocautery with thrombin gel was used to enforce hemostasis. Next, fascia of the sternocleidomastoid muscle was approximated over left common carotid artery and platysmal muscle were closed using running 3-0 Vicryl stitch. A 4-0 Monocryl was used close the skin and sterile dressing was applied. The patient woke up from general anesthesia uneventfully. She was following commands and moving upper and lower extremities bilaterally with equal strength and sensation. She did not exhibit neurological deficits. The patient was transferred to postanesthesia care unit for immediately postoperative care with plans to admit her to Intensive Care Unit for observation. The patient was in satisfactory condition at the end of the operation. Collin Kelly MD
== END 2017-01-19 13:50 | disposition home or self-care (01) | DRG 26 ==
LOC: H.ER 02:39 → H.EROBSV 05:54 → OBSVTOIN 10:15 → H.ERHOLD 10:26 → H.TEL 17:41 → H.MEDSURG1 01-10 23:45 → H.ICU/CCU 01-15 19:32 → H.MEDSURG1 01-18 11:51
PROVIDERS: ADMIT Family Medicine; ATTEND Family Medicine
PROC: 03CJ3ZZ Extirpation of Matter from Left Common Carotid Artery, Percutaneous Approach (ICD-10-PCS; 2017-01-15)
PROC: B5181ZA Fluoroscopy of Superior Vena Cava using Low Osmolar Contrast, Guidance (ICD-10-PCS; 2017-01-15)
PROC: 037 Upper Arteries, Dilation (ICD-10-PCS; principal; 2017-01-15 13:00)
PROC: 02HV33Z Insertion of Infusion Device into Superior Vena Cava, Percutaneous Approach (ICD-10-PCS; 2017-01-19)
DX: I65.23 Occlusion and stenosis of bilateral carotid arteries (principal); N17.9 Acute kidney failure, unspecified; E11.22 Type 2 diabetes mellitus with diabetic chronic kidney disease; I50.9 Heart failure, unspecified; I13.0 Hypertensive heart and chronic kidney disease with heart failure and stage 1 through stage 4 chronic kidney disease, or unspecified chronic kidney disease; M86.8X7 Other osteomyelitis, ankle and foot; N39.0 Urinary tract infection, site not specified; L97.419 Non-pressure chronic ulcer of right heel and midfoot with unspecified severity; E11.42 Type 2 diabetes mellitus with diabetic polyneuropathy; Z90.49 Acquired absence of other specified parts of digestive tract; E07.81 Sick-euthyroid syndrome; E11.319 Type 2 diabetes mellitus with unspecified diabetic retinopathy without macular edema; E11.51 Type 2 diabetes mellitus with diabetic peripheral angiopathy without gangrene; E11.621 Type 2 diabetes mellitus with foot ulcer; E11.69 Type 2 diabetes mellitus with other specified complication; E11.65 Type 2 diabetes mellitus with hyperglycemia; E11.649 Type 2 diabetes mellitus with hypoglycemia without coma; E11.622 Type 2 diabetes mellitus with other skin ulcer; E78.00 Pure hypercholesterolemia, unspecified; E66.9 Obesity, unspecified; E86.0 Dehydration; F41.8 Other specified anxiety disorders; F17.210 Nicotine dependence, cigarettes, uncomplicated; I25.10 Atherosclerotic heart disease of native coronary artery without angina pectoris; K21.9 Gastro-esophageal reflux disease without esophagitis; J44.9 Chronic obstructive pulmonary disease, unspecified; R29.6 Repeated falls; Z79.4 Long term (current) use of insulin; Z79.02 Long term (current) use of antithrombotics/antiplatelets; Z79.82 Long term (current) use of aspirin; Z83.3 Family history of diabetes mellitus; Z88.1 Allergy status to other antibiotic agents; Z82.5 Family history of asthma and other chronic lower respiratory diseases; Z82.49 Family history of ischemic heart disease and other diseases of the circulatory system; Z80.0 Family history of malignant neoplasm of digestive organs; Z81.8 Family history of other mental and behavioral disorders; L97.519 Non-pressure chronic ulcer of other part of right foot with unspecified severity; Z79.899 Other long term (current) drug therapy; L08.9 Local infection of the skin and subcutaneous tissue, unspecified

== ENCOUNTER 2017-02-26 07:23 | Inpatient (IN) | payer MEDICARE, OTHER ==
[2017-02-26 07:23] VITALS: BMI 33.7
[2017-02-26] MEDS ORDERED: Dextrose 50% SYRINGE Inj (50 ml) IVP ONE (07:36)
[2017-02-26] MEDS ORDERED: Sodium Chloride 0.9% 1,000 ML IV STA ×2 (07:55→08:42)
[2017-02-26 08:04] LABS: BASO % 0.1 % (0.0-2.0); EOS # 0.1 K/uL (0.0-0.7); EOS % 0.9 % (0.0-4.0); HEMOGLOBIN 9.3 g/dL (12.0-16.0); LYMPH # 1.1 K/uL (1.0-4.3); LYMPH % 6.6 % (20.0-40.0); MEAN CELL VOLUME 87.6 fl (81.0-99.0); MEAN CORPUSCULAR HEMOGLOBIN 29.5 pg (27.0-31.0); MEAN CORPUSCULAR HGB CONC 33.7 g/dL (33.0-37.0); MEAN PLATELET VOLUME 9.3 fl (7.2-11.7); MONO # 1.1 K/uL (0.0-0.8); MONO % 6.5 % (0.0-10.0); NEUT % 85.9 % (50.0-75.0); NRBC % 0.2 % (0.0-0.0); PLATELET COUNT 322 K/uL (130-400); RBC 3.16 Mil/uL (3.80-5.20); RED CELL DISTRIBUTION WIDTH 14.8 % (11.5-14.5); WHITE BLOOD COUNT 16.3 K/uL (4.8-10.8)
[2017-02-26 08:10] LABS: CALCIUM 9.7 mg/dL (8.4-10.2)
[2017-02-26 08:20] LABS: VENOUS BLOOD GAS BASE EXCESS 0.1 mmol/L (0.0-2.0); VENOUS BLOOD GAS PCO2 35 mmHg (40-60); VENOUS BLOOD GAS PO2 50 mm/Hg (30-55); VENOUS BLOOD PH 7.44 (7.32-7.43)
[2017-02-26 08:22] LABS: TROPONIN I 0.035 ng/mL (0.00-0.120)
[2017-02-26 10:04] LABS: EOSINOPHIL 2 % (0-7); LYMPHOCYTE 5 % (20-50); MONOCYTE 3 % (0-10); NEUTROPHIL 90 % (42-75); PLATELET ESTIMATE NORMAL (NORMAL); TOTAL CELLS COUNTED 100
[2017-02-26 10:05] LABS: ANISOCYTOSIS SLIGHT; LARGE PLATELETS PRESENT; OVALOCYTES SLIGHT; TEARDROP CELLS SLIGHT
[2017-02-26] MEDS ORDERED: Piperacillin/Tazobact 4.5 GM in Sodium Chloride 0.9% 100 ML IVPB STA (10:11)
[2017-02-26 10:30] LABS: SQUAMOUS EPITHIAL 1 /hpf (0-5); URINE BACTERIA RARE (<OCC); URINE BILIRUBIN NEGATIVE (NEGATIVE); URINE BLOOD MODERATE (NEGATIVE); URINE CLARITY CLOUDY (Clear); URINE COLOR YELLOW (YELLOW); URINE GLUCOSE (UA) 150 mg/dL (Normal); URINE LEUKOCYTE ESTERASE LARGE Leu/uL (Negative); URINE NITRATE NEGATIVE (NEGATIVE); URINE PROTEIN 30 mg/dL (NEGATIVE); URINE UROBILINOGEN 0.2-1.0 mg/dL (0.2-1.0)
--- NOTE | 2017-02-26 10:45 | ED PDOC ---
Hyperglycemia/Hypoglycemia Time Seen by Provider: 02/26/17 07:26 Chief Complaint (Nursing): Dizziness/Lightheaded Chief Complaint (Provider): Dizziness/lightheaded History Per: Patient History/Exam Limitations: no limitations Onset/Duration Of Symptoms: Days (x7) Current Symptoms Are (Timing): Still Present : The patient does not have any of the infectious symptoms listed except for those marked. Additional History Per: Family (pt's son ) Additional Complaint(s): Cora Grove is a 56 year old female with a past medical history of diabetes ( recently started on insulin), chronic wound to her right lower extremity, obesity, and CHF, now presenting to the ED after being found on her floor with hypoglycemia. Upon arrival, the patients Accu-Chek was 41. The patients son states he did witness the fall reporting that the patient did not strike her head. He also admits the patient has a decreased po intake and worsening right lower extremity pain. The patient has not seen wound care in approximately 1 week due to weakness. The patients prior chart was reviewed from her December admission, infectious disease saw her for wound infection. The patient states she did complete outpatient course of antibiotics several weeks ago. She complains of weakness and extremity pain. She denies abdominal pain, chest pain , shortness of breath, cough, and sore throat. Of note, history is limited due to patient being a poor historian. PMD: None provided Past Medical History Reviewed: Historical Data, Nursing Documentation, Vital Signs Vital Signs: Last Vital Signs Temp 98.7 F 02/26/17 09:40 Pulse 82 02/26/17 09:40 Resp 18 02/26/17 09:40 BP 99/46 L 02/26/17 09:40 Pulse Ox 97 02/26/17 09:40 - Medical History PMH: Anxiety, Asthma, Back Problems, CHF, Depression, Diabetes (type II), GERD, HTN, Hypercholesterolemia Denies: HIV, Chronic Kidney Disease, Seizures, Sexually Transmitted Disease - Surgical History Surgical History: Appendectomy, Carotid Endarterectomy, Cholecystectomy, C- Section ( x 3) - Family History Family History: States: Unknown Family Hx - Social History Current smoker - smoking cessation education provided: No - Home Medications Home Medications: Ambulatory Orders Medication Instructions Recorded Pravastatin Sodium [Pravachol] 40 mg PO HS 02/25/16 Canagliflozin [Invokana] 300 mg PO DAILY #0 tablet 05/29/16 Glimepiride [Amaryl] 4 mg PO BID #0 tablet 05/29/16 Oxycodone HCl/Acetaminophen 1 tab PO Q6H PRN #0 tablet 05/29/16 [Percocet 10-325 mg Tablet] Zolpidem [Ambien] 10 mg PO HS PRN #0 tab 05/29/16 Insulin Aspart, Recombinant 40 unit SC TID 01/06/17 [Novolog] Insulin Detemir [Levemir] 100 units SC HS 01/06/17 Lisinopril/Hydrochlorothiazide 1 tab PO DAILY 01/06/17 [Lisinopril-Hctz 20-25 mg Tab] Sitagliptin Phos/Metformin HCl 1 tab PO BID 01/06/17 [Janumet Xr 50-1,000 mg Tablet] Aspirin [Ecotrin] 81 mg PO DAILY #30 01/19/17 Clopidogrel [Plavix] 75 mg PO DAILY #30 tab 01/19/17 Morphine [Morphine Extended 30 mg PO Q12H 02/26/17 Release Tab] - Allergies Allergies/Adverse Reactions: Allergies Allergy/AdvReac Type Severity Reaction Status Date / Time vancomycin AdvReac ITCHING Verified 05/22/16 13:09 Review of Systems ROS Statement: Except As Marked, All Systems Reviewed And Found Negative ENT: Negative for: Throat Pain (no sore throat ) Cardiovascular: Negative for: Chest Pain Respiratory: Negative for: Shortness of Breath Gastrointestinal: Negative for: Abdominal Pain Musculoskeletal: Positive for: Leg Pain Neurological: Positive for: Weakness Physical Exam - Reviewed Nursing Documentation Reviewed: Yes Vital Signs Reviewed: Yes - Physical Exam Appears: Positive for: Well (appears generally weak), Non-toxic, No Acute Distress Head Exam: Positive for: ATRAUMATIC, NORMAL INSPECTION, NORMOCEPHALIC Skin: Positive for: Warm, Dry, Pallor (pallorous) Eye Exam: Positive for: EOMI, Normal appearance, PERRL ENT: Positive for: Normal ENT Inspection Neck: Positive for: Normal, Painless ROM Cardiovascular/Chest: Positive for: Regular Rate, Rhythm Respiratory: Positive for: Normal Breath Sounds. Negative for: Respiratory Distress Gastrointestinal/Abdominal: Positive for: Normal Exam, Bowel Sounds, Soft. Negative for: Tenderness (obese but nontendor ) Back: Positive for: Normal Inspection Extremity: Positive for: Other (5 cm draining wound to sole of her mid foot with mild erythema and moderate edema to right lower extremity ) Neurologic/Psych: Positive for: Alert, vessel welder II-XII (neurologically intact ), Oriented. Negative for: Motor/Sensory Deficits - Laboratory Results Result Diagrams: 02/26/17 07:45 02/26/17 07:45 - ECG O2 Sat by Pulse Oximetry: 97 (RA) Pulse Ox Interpretation: Normal - Critical Care Total Time (In Min): 35 Medical Decision Making Medical Decision Makin:26 Impression: Hypoglycemia Plan: * VBG shock panel * ED EKG * Basic metabolic panel * Total Creatinine Kinase * Troponin I * CBC (With Differential) * Urinalysis * Blood culture * Urine culture * Glucose, Blood, POC * Chest Portable [RAD] * Foot Right 3 Views [RAD] * Dextrose 50% Inj 50 ml IVP * Sodium Chloride 0.9% 1,000 ml IV * Zosyn 4.5 gm Sodium Chloride 0.9% 100 ml IVPB * Admit to hospital Routine Immediately given Dextrose with improvement of mentation. Blood work was sent off for rule-out. Sepsis contributed to presentation. Revealed elevated lactate , white blood cell count, and acute kidney injury compared to prior kidney function. Zosyn administered. Pt allergic to Vancomycin. Will obtain ID consult. Pt admitted to Dr. Willoughby. D/w Dr Verde- enterobacter from December only resistant to Ancef, zafar sensitive otherwise incld pip/tazo. Continue Zosyn for now. Will consult. Scribe Attestation: Documented by Gavi Jeter, acting as a scribe for Mann Sinha DO. Provider Scribe Attestation: All medical record entries made by the Scribe were at my direction and personally dictated by me. I have reviewed the chart and agree that the record accurately reflects my personal performance of the history, physical exam, medical decision making, and the department course for this patient. I have also personally directed, reviewed, and agree with the discharge instructions and disposition. Disposition - Clinical Impression Clinical Impression: Severe sepsis, Hypoglycemia, Acute kidney failure, UTI (urinary tract infection ), Cellulitis of foot - Patient ED Disposition Is Patient to be Admitted: Yes Counseled Patient/Family Regarding: Studies Performed, Diagnosis, Need For Followup - Disposition Disposition Time: 10:15 Condition: GUARDED - Pt Status Changed To: Hospital Disposition Of: Inpatient - Admit Certification Admit to Inpatient:: After my assessment, the patient will require hospitalization for at least two midnights. This is because of the severity of symptoms shown, intensity of services needed, and/or the medical risk in this patient being treated as an outpatient. - POA Present On Arrival: Falls Or Trauma, Poor Glycemic Control
--- NOTE | 2017-02-26 10:52 | CP.PCM.CON ---
History of Present Illness - History of Present Illness History of Present Illness: 56 year old female with PMH of DM, osteomyelitis, CHF, HTN, hypercholesterolemia was seen in the ED for sepsis with right plantar foot ulceration being a possible source of infection. Patient had a syncope episode this morning and was found by son who brought her to the ED. Seen by Dr. Kaur for wound care but missed appointment this Thursday. She reports pain at the right calf and tenderness to the right plantar wound. She denies n/v/sob/f. Reports having diarrhea last Thursday and reports having chills at this moment. Patient appears tired. In the last hospital stay, PICC line in place for treatment of abx which she says she has completed. She no longer has PICC line. Past Patient History - Infectious Disease Hx of Infectious Diseases: None - Past Medical History & Family History Past Medical History?: Yes - Past Social History Smoking Status: Heavy Smoker > 10 Cigarettes Daily - CARDIAC Hx Congestive Heart Failure: Yes Hx Hypercholesterolemia: Yes Hx Hypertension: Yes - PULMONARY Hx Asthma: Yes - NEUROLOGICAL Hx Seizures: No - HEENT Hx HEENT Problems: No - RENAL Hx Chronic Kidney Disease: No - ENDOCRINE/METABOLIC Hx Endocrine Disorders: Yes Hx Diabetes Mellitus Type 2: Yes - HEMATOLOGICAL/ONCOLOGICAL Hx Human Immunodeficiency Virus (HIV): No - INTEGUMENTARY Hx Dermatological Problems: No - MUSCULOSKELETAL/RHEUMATOLOGICAL Hx Musculoskeletal Disorders: Yes - GASTROINTESTINAL Hx Gastrointestinal Disorders: No - GENITOURINARY/GYNECOLOGICAL Hx Sexually Transmitted Disorders: No - PSYCHIATRIC Hx Anxiety: Yes Hx Depression: Yes Hx Substance Use: No - SURGICAL HISTORY Hx Appendectomy: Yes Hx Cholecystectomy: Yes - ANESTHESIA Hx Anesthesia: Yes Hx Anesthesia Reactions: No Hx Malignant Hyperthermia: No Meds Allergies/Adverse Reactions: Allergies Allergy/AdvReac Type Severity Reaction Status Date / Time vancomycin AdvReac ITCHING Verified 05/22/16 13:09 - Medications Medications: Current Medications Piperacillin Sod/Tazobactam (Sod 4.5 gm/ Sodium Chloride) 100 mls @ 100 mls/hr IVPB STAT STA Stop: 02/26/17 11:10 Physical Exam - Constitutional Appears: Well, Non-toxic, No Acute Distress - Extremities Exam Additional comments: Vascular: DP and PT 1/4 bilaterally, EMERGENCY ROOM DOCTOR >3 seconds to the digits bilaterally, right leg edema, temperature is warm to touch at the R calf and R ankle, temperature is cool at R foot, L LE temperature is WNKL Ortho: moderate pain with palpation of the R calf and mild pain with palpation to the R plantar lateral ulcer Neuro: sensation is grossly diminished bilaterally Derm: Right foot ulceration measuring approximately 3.5 x 2.3 x 0.4 cm. Wound base is 80% granular and 20% fibrotic. Wound edges are hyperkeratotic and intact. Slightly macerated at lateral ulcer periwound. No erythema noted, no purulence, no malodor, or no fluctuance. Mild sangious serous drainage noted. Wound does not probe to bone. No tunneling noted; periwound has residual jackie stain secondary to wound care product application - Neurological Exam Neurological exam: Alert, Oriented x3 - Psychiatric Exam Psychiatric exam: Flat Affect, Normal Mood Results - Vital Signs Recent Vital Signs: Last Vital Signs Temp 98.7 F 02/26/17 09:40 Pulse 82 02/26/17 09:40 Resp 18 02/26/17 09:40 BP 99/46 L 02/26/17 09:40 Pulse Ox 97 02/26/17 09:40 - Labs Result Diagrams: 02/26/17 07:45 02/26/17 07:45 Assessment & Plan - Assessment and Plan (Free Text) Assessment: 56 year old female with PMH of DM, osteomyelitis, CHF, HTN, hypercholesterolemia for 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 Kaur Charts, labs, and vitals reviewed: afebrile, WBC is 16.3, random glucose: 38mg/ dl Chronic R ulceration does not appear to be clinicially infected at this time Wound cleansed with saline, dressed with 4x4, ABD, and kerlix Ordered Silvasorb. Will apply tomorrow with adaptic, 4x4 and kerlix Duplex of right lower extremity to r/o DVT-pending results X-rays ordered-pending results Wound culture ordered- pending results Podiatry will continue to follow while in house Will continue to follow in house when admitted
--- NOTE | 2017-02-26 11:29 | RAD ---
HISTORY: Shortness of breath periods COMPARISON: 01/06/2017 FINDINGS: LUNGS: No active pulmonary disease. Pulmonary markings accentuated by technique and suboptimal inspiratory effort. PLEURA: No significant pleural effusion identified, no pneumothorax apparent. CARDIOVASCULAR: No radiographic findings to suggest acute or significant cardiovascular disease. OSSEOUS STRUCTURES: No significant abnormalities. VISUALIZED UPPER ABDOMEN: Normal. OTHER FINDINGS: None. IMPRESSION: No active disease. No significant interval change compared to the prior examination(s).
[2017-02-26] MEDS ORDERED: Sodium Chloride 0.9% 1,000 ML IV SCH (12:00)
[2017-02-26] MEDS: Dextrose 5%/0.9% NS 1,000 ML IV SCH ×2 (12:30→21:14)
[2017-02-26] MEDS ORDERED: Dextrose 50% SYRINGE Inj (50 ml) IVP PRN (12:55)
[2017-02-26] MEDS ORDERED: Glucagon Recombinant 1 mg Inj IM PRN (12:55)
--- NOTE | 2017-02-26 15:49 | US ---
PROCEDURE: Bilateral lower extremity venous duplex Doppler. HISTORY: r/o DVT COMPARISON: None available. TECHNIQUE: Bilateral common femoral, superficial femoral, popliteal and posterior tibial veins were evaluated. Flow was assessed with color Doppler, compressibility, assessment of phasic flow and augmentation response. FINDINGS: COMMON FEMORAL VEIN: Right CFV: Unremarkable. Left CFV: Unremarkable. SUPERFICIAL FEMORAL VEIN: Right SFV: Unremarkable. Left SFV: Unremarkable. POPLITEAL VEIN: Right Popliteal: Unremarkable. Left Popliteal: Unremarkable. POSTERIOR TIBIAL VEIN: Right PTV: Unremarkable. Left PTV: Unremarkable. OTHER FINDINGS: Right calf edema identified. IMPRESSION: No evidence of deep venous thrombosis.
[2017-02-26] MEDS: Enoxaparin 40 mg Syringe SC SCH (16:20)
--- NOTE | 2017-02-26 16:28 | CP.PCM.PN ---
Subjective - Date & Time of Evaluation Date of Evaluation: 02/26/17 Time of Evaluation: 16:26 - Subjective Subjective: I D NOTE HAD DISCUSSED C RESIDENT. CONTINUE PRESENT ANTIBIOTIC MANAGEMENT AWAIT F/U CULTURES FULL CONSULT DICTATED Objective - Vital Signs/Intake and Output Vital Signs (last 24 hours): Temp Pulse Resp BP Pulse Ox 99.2 F 80 20 105/66 97 02/26/17 16:13 02/26/17 16:13 02/26/17 16:13 02/26/17 16:13 02/26/17 16:13 - Medications Medications: Current Medications Dextrose (Dextrose 50% Inj) 0 ml IVP STAT PRN; Protocol PRN Reason: Hypoglycemia Protocol Enoxaparin Sodium (Lovenox) 40 mg SC DAILY MARII PRN Reason: Protocol Last Admin: 02/26/17 16:20 Dose: 40 mg Glucagon (Glucagen Diagnostic Kit) 0 mg IM STAT PRN; Protocol PRN Reason: Hypoglycemia Protocol Ceftriaxone Sodium 2 gm/ (Sodium Chloride) 100 mls @ 100 mls/hr IVPB DAILY MARII Dextrose/Sodium Chloride (Dextrose 5%/0.9% Ns 1000 Ml) 1,000 mls @ 125 mls/hr IV .Q8H MARII Stop: 02/27/17 12:49 Insulin Human Lispro (Humalog) 0 units SC ACHS MARII PRN Reason: Protocol Linezolid (Zyvox) 600 mg PO Q12 MARII
[2017-02-26] MEDS: Insulin Lispro (humaLOG) 100 Units/ml Inj SC SCH ×2 (17:36→22:15)
--- NOTE | 2017-02-26 20:52 | CP.PCM.HP ---
History of Present Illness - History of Present Illness History of Present Illness: 56 year old female with a past medical history of diabetes (recently started on insulin), chronic wound to her right lower extremity, obesity, and CHF, now presenting to the ED after being found on her floor with hypoglycemia. 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 As per ER doctor upon arrival, the patients Accu-Chek was 41. Based on records patient's son stated he did witness the fall reporting that the patient did not strike her head. He also admits the patient has a decreased po intake and worsening right lower extremity pain. The patient has not seen wound care in approximately 1 week due to weakness. She denies abdominal pain, chest pain, shortness of breath, cough, and sore throat. Present on Admission - Present on Admission Any Indicators Present on Admission: No History of DVT/PE: No History of Uncontrolled Diabetes: No Urinary Catheter: No Decubitus Ulcer Present: No Review of Systems - Review of Systems All systems: reviewed and no additional remarkable complaints except (as per HPI ) Past Patient History - Infectious Disease Hx of Infectious Diseases: None - Past Medical History & Family History Past Medical History?: Yes - Past Social History Smoking Status: Heavy Smoker > 10 Cigarettes Daily - CARDIAC Hx Congestive Heart Failure: Yes Hx Hypercholesterolemia: Yes Hx Hypertension: Yes - PULMONARY Hx Asthma: Yes - NEUROLOGICAL Hx Seizures: No - HEENT Hx HEENT Problems: No - RENAL Hx Chronic Kidney Disease: No - ENDOCRINE/METABOLIC Hx Endocrine Disorders: Yes Hx Diabetes Mellitus Type 2: Yes - HEMATOLOGICAL/ONCOLOGICAL Hx Human Immunodeficiency Virus (HIV): No - INTEGUMENTARY Hx Dermatological Problems: No - MUSCULOSKELETAL/RHEUMATOLOGICAL Hx Musculoskeletal Disorders: Yes - GASTROINTESTINAL Hx Gastrointestinal Disorders: No - GENITOURINARY/GYNECOLOGICAL Hx Sexually Transmitted Disorders: No - PSYCHIATRIC Hx Anxiety: Yes Hx Depression: Yes Hx Substance Use: No - SURGICAL HISTORY Hx Appendectomy: Yes Hx Cholecystectomy: Yes - ANESTHESIA Hx Anesthesia: Yes Hx Anesthesia Reactions: No Hx Malignant Hyperthermia: No Meds Allergies/Adverse Reactions: Allergies Allergy/AdvReac Type Severity Reaction Status Date / Time vancomycin AdvReac ITCHING Verified 05/22/16 13:09 Physical Exam - Constitutional Appears: No Acute Distress - ENT Exam ENT Exam: Mucous Membranes Dry - Respiratory Exam Respiratory Exam: Clear to Auscultation Bilateral, NORMAL BREATHING PATTERN - Cardiovascular Exam Cardiovascular Exam: REGULAR RHYTHM, +S1, +S2 - GI/Abdominal Exam GI & Abdominal Exam: Normal Bowel Sounds, Soft. absent: Distended, Firm, Guarding, Rigid, Tenderness - Extremities Exam Extremities exam: Negative for: calf tenderness Additional comments: 5 cm no draining wound to sole of her mid foot with mild erythema and moderate edema to right lower extremity ) - Neurological Exam Neurological exam: Altered - Skin Skin Exam: Dry, Intact, Pallor Results - Vital Signs Recent Vital Signs: Last Vital Signs Temp 100.1 F H 02/26/17 19:45 Pulse 95 H 02/26/17 19:45 Resp 20 02/26/17 19:45 BP 116/63 02/26/17 19:45 Pulse Ox 96 02/26/17 19:45 - Labs Result Diagrams: 02/27/17 05:10 02/26/17 07:45 Labs: Laboratory Results - last 24 hr 02/26/17 02/26/17 02/26/17 12:43 12:56 13:57 POC Glucose (mg/dL) 33 L* 142 H 103 02/26/17 17:09 POC Glucose (mg/dL) 125 H Assessment & Plan - Assessment and Plan (Free Text) Assessment: 56 year old female with PMH of DM, osteomyelitis, CHF, HTN, hypercholesterolemia admitted for hypoglycemia, AKF and possible sepsis. Plan: Uncontrolled Diabetes Mellitus -admit in telemetry -accucheck Q4 hours -IV hydration -Hypoglycemia protocol -Endocrinology consult, f/u Dr. Ley recommendations Right foot ulcer most likely secondary to Uncontrolled DM complicated with DM neuropathy -h/o osteomyelitis -Leucocytosis -f/u foot x ray results -Start antibiotics: Linezolid and Rocephin -ID consult, F/u recommendations -Podiatry consult, f/u recommendations Azotemia -most likely secondary to TED 2/2 dehydration -BUN/Cr: 79/2.3 -IV hydration -f/u BMP Sepsis -altered mental status -Hypotension, SBP 90, HR >90 -WBC: 16 -Azotemia DVT prophylaxis Lovenox 40 mg SC daily - Date & Time Date: 02/26/17 Time: 12:30
--- NOTE | 2017-02-27 01:11 | CON ---
ENDOCRINOLOGY CONSULTATION LOCATION: Room 410. HISTORY OF PRESENT ILLNESS: This is a 56-year-old female with known history of type 2 insulin requiring diabetes, presenting here with symptomatic hypoglycemia and apparent, brief bout of unresponsiveness and was found on to floor by the family member. As noted thereof stated her glucose value was actually 41 mg/dL as per the paramedics. She admits a very poor suboptimal oral intake in the last two week or so prior to admission with the same insulin dose regimen as given. PAST MEDICAL HISTORY: History of type 2 insulin requiring diabetes on a basal and bolus insulin regimen taken at home using Levemir given as 100 units subcutaneous at bedtime daily and NovoLog given as 40 units subcutaneous t.i.d. before meals as ordered. However, with the previous admission, we actually sent her home on a much lower dose of the aforementioned regimen with Levemir given only as 60 units at bedtime and Humalog given as 20 units t.i.d. before meals. However, the patient has had lapses of memory and has been taking the previous and higher dose regimen as given. She also is taking Amaryl given as 4 mg b.i.d. with Janumet given as b.i.d. and Invokana given by Dr. Willoughby, at 300 mg once daily, history of hypertension, cardiovascular disease and dyslipidemia, history of diabetic retinopathy, polyneuropathy and nephropathy with chronic kidney disease, history of coronary artery disease with severe peripheral arterial disease and vasculopathy, she has a non-healing right foot plantar ulcer as noted and is being followed closely by Dr. Llamas, on the outpatient for weekly debridement as noted. FAMILY HISTORY: Possible diabetes and hypertension. SOCIAL HISTORY: The patient has supportive family, she is actually now and her son is very attached to her needs. She admits to nicotine dependent and smoke half a pack for many years till the present time. REVIEW OF SYSTEMS: Admits to generalized body weakness with easy fatigability and tiredness and suboptimal energy level. Also admits to episodic dizziness and light headedness worse on the day of admission, she was actually found to have a brief bout of unresponsiveness with symptomatic hypoglycemia and was found by the son on the floor today as noted. No chest pain or palpitation or PNDs. Oral intake is variable and suboptimal with nausea, dyspepsia and vague upper abdominal pain. Also admits to episodic polyuria and nocturia with lower extremity painful paresthesias especially in the right leg and foot area. PHYSICAL EXAMINATION: GENERAL: This is overweight female in no apparent distress. VITAL SIGNS: Blood pressure 150/90, pulse of 70 beats per minute regular, temperature 98, respirations 20, height is 5 feet 8 inches and weight is 225 pounds. HEENT: Head normocephalic. Eyes are anicteric with pink conjunctivae. Funduscopy not possible at this time. Ears, nose, and throat otherwise normal. NECK: Supple. Thyroid gland is normal in size. No carotid bruits or cervical adenopathy. CARDIOPULMONARY: Adynamic precordium. S1 and S2 is rapid and regular. LUNGS: Clear to auscultation. ABDOMEN: Obese, soft with positive bowel sounds. EXTREMITIES: No peripheral edema. Pulses are diminished peripherally. LABORATORY DATA: Chemistry showed a BUN of 79, sodium 129, potassium 4.9, chloride 96, CO2 of 22, glucose 38 and creatinine 2.3. Her glucose levels is now 122 mg/dL. ASSESSMENT: This is a 56-year-old female with uncontrolled and decompensative type 2 insulin requiring diabetes, who has very nil and suboptimal meal portions in the last week or so prior to admission with continued usage of the same high dose insulin regimen and thus developed *------* symptomatic hypoglycemia with associated neuroglycopenic and hyperadrenergic manifestation from the same. She also has diabetic microvascular complications of retinopathy, polyneuropathy and nephropathy with chronic kidney disease as noted. Moreover she has diabetic macrovascular complications of coronary artery disease and peripheral arterial disease and vasculopathy. PLAN: Plan of management was discussed with the patient and staff. We will modify the current insulin regimen and give her much lower dose regimen accordingly. We will give her a low dose algorithm using Humalog insulin as given and we will observe the glycemic fluctuations and restart her basal and bolus insulin regimen accordingly. We will discontinue all her oral hyperglycemic drug therapy for now, especially in the light of progressive renal insufficiency. Hemoglobin A1c will be done *------* glycemic control and baseline thyroid function studies will be ordered. We will titrate incremental as indicated to optimize metabolic control. We will follow. Mckenzie Ley MD
--- NOTE | 2017-02-27 04:38 | CON ---
DATE: HISTORY OF PRESENT ILLNESS: The patient is well known to me from previous hospitalizations. She is a 56-year-old female with significant history of diabetes mellitus and most significantly chronic wound infection her right lower extremity, also history of CHF, who came to the ER after a recent hospitalization by her son who found that she had fallen to the floor. Apparently, she did not cause any head trauma. During this time out of hospital she had a decreasing oral intake and increasing right lower extremity pain. The patient is being seen by the wound care center, but has not been there in over a week. She is taking multiple courses of extensive antibiotic treatment and was presently on Zyvox orally and Rocephin intravenously. When seen in the ER, she was found to have a significantly lowered glucose. PHYSICAL EXAMINATION: GENERAL: She is quite depressed and stated to me that she really did not want to eat, generally weak. HEENT: Within normal limits. NECK: Supple. HEART: Regular sinus rhythm. LUNGS: Decreased breath sounds at bases. ABDOMEN: Soft with positive bowel sounds. EXTREMITIES: Positive for 5 mm draining wound on the sole of her mid foot and the right foot, which was cultured. IMPRESSION: Chronic ulcer right foot, this wound has been treated long-term with p.o. and iv antibiotics. At this point of time, considering her vascular situation and the fact that she is not eating well. It will be quite difficult to heal. Although, right now it appears clean and some granulation. At the present time, would continue with the same medication as it was only started or ordered within last month and would continue with Rocephin 2 g IV piggyback q.24 and Zyvox orally. Might consider the change of the clindamycin depending on the cultures when they return. Chiki Verde MD [email or web address]
[2017-02-27 06:21] LABS: BASO # 0.1 K/uL (0.0-0.2); BASO % 0.5 % (0.0-2.0); EOS # 0.1 K/uL (0.0-0.7); EOS % 0.9 % (0.0-4.0); HEMOGLOBIN 8.6 g/dL (12.0-16.0); LYMPH # 1.3 K/uL (1.0-4.3); LYMPH % 11.4 % (20.0-40.0); MEAN CELL VOLUME 89.8 fl (81.0-99.0); MEAN CORPUSCULAR HEMOGLOBIN 29.1 pg (27.0-31.0); MEAN CORPUSCULAR HGB CONC 32.4 g/dL (33.0-37.0); MEAN PLATELET VOLUME 9.2 fl (7.2-11.7); MONO % 9.2 % (0.0-10.0); NEUT # 8.8 K/uL (1.8-7.0); RBC 2.95 Mil/uL (3.80-5.20); RED CELL DISTRIBUTION WIDTH 14.7 % (11.5-14.5); WHITE BLOOD COUNT 11.3 K/uL (4.8-10.8)
[2017-02-27 06:30] LABS: ALB/GLOB RATIO 0.7 (1.0-2.1); ALBUMIN 2.9 g/dL (3.5-5.0); CALCIUM 8.7 mg/dL (8.4-10.2)
--- NOTE | 2017-02-27 07:05 | CP.PCM.PN ---
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 Patient is seen resting comfortably in bed and NAD. Patient is AAO x3. She still appears tired but energy has improved. She complains of minimal pain today at her right plantar foot. Reports moderate pain at the right anterior ankle and entire lower 1/3 calf especially with palpation. She states she has had this pain over a year. Denies n/v/sob/cp/ chills or f. Denies any acute events overnight. Objective - Vital Signs/Intake and Output Vital Signs (last 24 hours): Temp Pulse Resp BP Pulse Ox 98.5 F 79 18 104/59 L 99 02/27/17 05:06 02/27/17 05:06 02/27/17 05:06 02/27/17 05:06 02/27/17 05:06 - Medications Medications: Current Medications Acetaminophen (Tylenol 325mg Tab) 650 mg PO Q6 PRN PRN Reason: Fever >100.4 F Last Admin: 02/27/17 01:13 Dose: 650 mg Dextrose (Dextrose 50% Inj) 0 ml IVP STAT PRN; Protocol PRN Reason: Hypoglycemia Protocol Enoxaparin Sodium (Lovenox) 40 mg SC DAILY [facility] PRN Reason: Protocol Last Admin: 02/26/17 16:20 Dose: 40 mg Glucagon (Glucagen Diagnostic Kit) 0 mg IM STAT PRN; Protocol PRN Reason: Hypoglycemia Protocol Ceftriaxone Sodium 2 gm/ (Sodium Chloride) 100 mls @ 100 mls/hr IVPB DAILY [facility] Dextrose/Sodium Chloride (Dextrose 5%/0.9% Ns 1000 Ml) 1,000 mls @ 125 mls/hr IV .Q8H [facility] Stop: 02/27/17 12:49 Last Admin: 02/26/17 21:14 Dose: 125 mls/hr Insulin Human Lispro (Humalog) 0 units SC ACHS [facility] PRN Reason: Protocol Last Admin: 02/26/17 22:15 Dose: Not Given Linezolid (Zyvox) 600 mg PO Q12 [facility] Last Admin: 02/26/17 22:14 Dose: 600 mg - Labs Labs: 02/27/17 05:10 02/27/17 05:10 - Constitutional Appears: Well, Non-toxic, No Acute Distress - Extremities Exam Additional comments: Vascular: DP and PT 1/4 bilaterally, 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 Wound base is 80% granular and 20% fibrotic. Wound edges are hyperkeratotic and intact. Slightly macerated at lateral ulcer periwound. No erythema noted, no purulence, no malodor, or no fluctuance. Mild sangious serous drainage noted. Wound does not probe to bone. No tunneling noted - Neurological Exam Neurological Exam: Alert, Awake, Oriented x3 - Psychiatric Exam Psychiatric exam: Normal Affect, Normal Mood Assessment and Plan - Assessment and Plan (Free Text) Assessment: 56 year old female with PMH of DM, osteomyelitis, CHF, HTN, hypercholesterolemia for R chronic foot ulceration secondary to DM neuropathy Plan: Pt seen and examined in the ED Discussed plan in detail with attending Dr. Kaur Charts, labs, and vitals reviewed: afebrile, WBC is 11.3 (WBC: 16.3 on 02/26/17) , random glucose: 56mg/dl this morning Wound cleansed with saline, dressed Silvasorb, 4x4, ABD, and kerlix Duplex of right lower extremity- negative DVT X-rays ordered-pending results Wound culture ordered- pending results Podiatry will continue to follow while in house
--- NOTE | 2017-02-27 07:37 | CARD ---
APPROVED REPORT EKG Measurement Heart [id number] <Conclusion> Normal sinus rhythm Nonspecific ST and T wave abnormality Abnormal ECG
[2017-02-27] MEDS: cefTRIAXone 2 GM in Sodium Chloride 0.9% 100 ML IVPB SCH ×2 (11:19→14:36)
[2017-02-27] MEDS: Enoxaparin 40 mg Syringe SC SCH (11:22)
[2017-02-27] MEDS: SILVASORB ANTIMICROBIAL WOUND GEL TP SCH (11:22)
[2017-02-27] MEDS: Insulin Lispro (humaLOG) 100 Units/ml Inj SC SCH ×5 (11:23→22:32)
[2017-02-27] MEDS: Dextrose 5%/0.9% NS 1,000 ML IV SCH (11:23)
--- NOTE | 2017-02-27 11:25 | RAD ---
PROCEDURE: Right Foot Radiographs. HISTORY: right foot ulcer COMPARISON: 01/09/2017 FINDINGS: BONES: Postoperative findings status post resection of 3rd digit. Stable deformities of the 2nd metatarsal. Findings suggest prior proximal 2nd 3rd and 4th metatarsal fractures. Possible Lisfranc injury. JOINTS: Stable hallux valgus deformity. SOFT TISSUES: Deep ulcer plantar aspect of the foot at the level of the metatarsals progressive compared to the prior study. OTHER FINDINGS: None. IMPRESSION: No acute osseous findings. Additional information provided in the commentary.
[2017-02-27 12:23] LABS: IRON 16 ug/dL (37-170)
[2017-02-27 12:32] LABS: % IRON SATURATION 7 % (20-55); TOTAL IRON BINDING CAPACITY 222 ug/dL (250-450)
[2017-02-27] MEDS: Cefdinir 300 MG CAP PO SCH (17:19)
--- NOTE | 2017-02-27 19:08 | PN ---
ENDO FOLLOWUP NOTE LOCATION: Room 410. SUBJECTIVE: This is a 56-year-old female with known history of type 2 insulin requiring diabetes, presenting here with symptomatic hypoglycemia and associated neuroglycopenic and hyperadrenergic manifestation from the same. There was an apparent syncopal event and brief bout of unresponsiveness as per the son who is following the patient in the floor and at home. She apparently has been particular very little portion of the food over the last 2 week or so and has continued to be the same insulin regimen as given. Her latest glucose levels are starting to improve, but there is fluctuating as noted today with glucose values ranging from 56 to 216 mg/dL. The latest chemistry showed a BUN of 42, sodium 138, potassium 4.4, chloride 106, CO2 of 27, glucose 64 and creatinine 1.2. Hemoglobin A1c is 9.3% which is elevated and indicative of suboptimal metabolic control of her diabetic condition. ASSESSMENT: This is a 56-year-old female with uncontrolled and decompensated type 2 insulin requiring diabetes, presenting here with symptomatic hypoglycemia and associated neuroglycopenic and hyperadrenergic manifestation from the same. This is also related to over insulin in the light of suboptimal meal portion at this time of evaluation. She also has diabetic microvascular complications of retinopathy, polyneuropathy and nephropathy with underlying chronic kidney disease. Moreover she has diabetic macrovascular complications of coronary artery disease and severe peripheral arterial disease and vasculopathy with non-healing right foot plantar ulceration as noted. PLAN OF MANAGEMENT: As discussed with the patient and staff. We will hold off the initiation of the basal and bolus insulin regimen for now. Oral intake remains very variable and suboptimal at this time. We will continue however, the low dose correction scale using Humalog insulin is given. As her glucose levels fluctuate and improve then we will restart her back on low dose basal and bolus insulin combination as indicated. We will obtain serial chemistries and supplements accordingly as needed. We will follow. Mckenzie Ley MD
[2017-02-27] MEDS: Pravastatin Sodium 40 MG TAB PO SCH (21:08)
[2017-02-27] MEDS: Insulin Detemir 100 Units/ml Inj SC SCH (22:33)
--- NOTE | 2017-02-28 07:45 | CP.PCM.PN ---
<Jonatan Kaur - Last Filed: 02/28/17 07:44> Subjective - Date & Time of Evaluation Date of Evaluation: 02/28/17 Time of Evaluation: 06:30 - Subjective Subjective: pt seen this am with resident for treatment of dm ulcer right midfoot. Objective - Vital Signs/Intake and Output Vital Signs (last 24 hours): Temp Pulse Resp BP Pulse Ox 98.4 F 81 20 133/66 98 02/27/17 23:57 02/27/17 23:57 02/27/17 23:57 02/27/17 23:57 02/27/17 23:57 - Medications Medications: Current Medications Acetaminophen (Tylenol 325mg Tab) 650 mg PO Q6 PRN PRN Reason: Fever >100.4 F Last Admin: 02/27/17 01:13 Dose: 650 mg Aspirin (Ecotrin) 81 mg PO DAILY [facility] Last Admin: 02/27/17 17:19 Dose: 81 mg Cefdinir (Omnicef) 300 mg PO BID [facility] Last Admin: 02/27/17 17:19 Dose: 300 mg Dextrose (Dextrose 50% Inj) 0 ml IVP STAT PRN; Protocol PRN Reason: Hypoglycemia Protocol Enoxaparin Sodium (Lovenox) 40 mg SC DAILY [facility] PRN Reason: Protocol Last Admin: 02/27/17 11:22 Dose: 40 mg Glucagon (Glucagen Diagnostic Kit) 0 mg IM STAT PRN; Protocol PRN Reason: Hypoglycemia Protocol Insulin Detemir (Levemir) 12 units SC HS [facility] Last Admin: 02/27/17 22:33 Dose: 12 units Insulin Human Lispro (Humalog) 0 units SC ACHS [facility] PRN Reason: Protocol Last Admin: 02/27/17 22:32 Dose: Not Given Insulin Human Lispro (Humalog) 6 units SC AC [facility] Linezolid (Zyvox) 600 mg PO Q12 [facility] Last Admin: 02/27/17 21:07 Dose: 600 mg Pravastatin Sodium (Pravachol) 40 mg PO HS [facility] Last Admin: 02/27/17 21:08 Dose: 40 mg Tramadol HCl (Ultram) 50 mg PO Q8 PRN PRN Reason: Pain, moderate (4-7) Last Admin: 02/27/17 17:17 Dose: 50 mg - Labs Labs: 02/27/17 05:10 02/27/17 05:10 <Ananda Goins - Last Filed: 02/28/17 18:22> Subjective - Subjective Subjective: 56 year old female with PMH of DM, osteomyelitis, CHF, HTN, hypercholesterolemia seen at bedside with attending Dr. 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 Patient is seen resting comfortably in bed and NAD. Patient is AAO x3. Complains of some pain today. Denies n/v/sob/cp/chills or f. Objective - Vital Signs/Intake and Output Vital Signs (last 24 hours): Temp Pulse Resp BP Pulse Ox 99.5 F 82 20 131/62 98 02/28/17 16:05 02/28/17 16:05 02/28/17 16:05 02/28/17 16:05 02/28/17 16:05 - Medications Medications: Current Medications Acetaminophen (Tylenol 325mg Tab) 650 mg PO Q6 PRN PRN Reason: Fever >100.4 F Last Admin: 02/27/17 01:13 Dose: 650 mg Aspirin (Ecotrin) 81 mg PO DAILY [facility] Last Admin: 02/28/17 08:58 Dose: 81 mg Cefdinir (Omnicef) 300 mg PO BID [facility] Last Admin: 02/28/17 16:59 Dose: 300 mg Dextrose (Dextrose 50% Inj) 0 ml IVP STAT PRN; Protocol PRN Reason: Hypoglycemia Protocol Enoxaparin Sodium (Lovenox) 40 mg SC DAILY [facility] PRN Reason: Protocol Last Admin: 02/28/17 08:59 Dose: 40 mg Glucagon (Glucagen Diagnostic Kit) 0 mg IM STAT PRN; Protocol PRN Reason: Hypoglycemia Protocol Insulin Detemir (Levemir) 12 units SC HS [facility] Last Admin: 02/27/17 22:33 Dose: 12 units Insulin Human Lispro (Humalog) 0 units SC ACHS [facility] PRN Reason: Protocol Last Admin: 02/28/17 16:59 Dose: Not Given Insulin Human Lispro (Humalog) 6 units SC AC [facility] Last Admin: 02/28/17 16:59 Dose: 6 unit Linezolid (Zyvox) 600 mg PO Q12 [facility] Last Admin: 02/28/17 08:58 Dose: 600 mg Pravastatin Sodium (Pravachol) 40 mg PO HS [facility] Last Admin: 02/27/17 21:08 Dose: 40 mg Pregabalin (Lyrica) 100 mg PO TID [facility] Last Admin: 02/28/17 16:59 Dose: 100 mg Tramadol HCl (Ultram) 50 mg PO Q8 PRN PRN Reason: Pain, moderate (4-7) Last Admin: 02/27/17 17:17 Dose: 50 mg - Labs Labs: 02/28/17 06:00 02/28/17 06:00 - Constitutional Appears: Well, Non-toxic, No Acute Distress - Extremities Exam Additional comments: Vascular: DP and PT 1/4 bilaterally, WOOD 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 Wound base is 80% granular and 20% fibrotic. Wound edges are hyperkeratotic and intact. Slightly macerated at lateral ulcer periwound. No erythema noted, no purulence, no malodor, or no fluctuance. Mild sangious serous drainage noted. Wound does not probe to bone. No tunneling noted - Neurological Exam Neurological Exam: Alert, Awake, Oriented x3 - Psychiatric Exam Psychiatric exam: Normal Affect, Normal Mood Assessment and Plan - Assessment and Plan (Free Text) Assessment: 56 year old female with PMH of DM, osteomyelitis, CHF, HTN, hypercholesterolemia for R chronic foot ulceration secondary to DM neuropathy Plan: Pt seen and examined with attending Dr. Kaur Charts, labs, and vitals reviewed: afebrile, WBC is 10.6, trending down Wound cleansed with saline, dressed Silvasorb, 4x4, ABD, and kerlix Duplex of right lower extremity- negative DVT X-rays ordered-no acute osseous Wound cultur results-Corynebacterium species Urinr culture- citrobacter freundii Podiatry will continue to follow while in house
[2017-02-28 07:50] LABS: BLOOD UREA NITROGEN 20 mg/dl (7-17); CALCIUM 8.8 mg/dL (8.4-10.2); GFR AFRICAN-AMERICAN > 60; GFR NON-AFRICAN AMERICAN > 60
[2017-02-28 07:53] LABS: HEMOGLOBIN 8.6 g/dL (12.0-16.0); MEAN CELL VOLUME 88.4 fl (81.0-99.0); MEAN CORPUSCULAR HEMOGLOBIN 29.1 pg (27.0-31.0); RBC 2.97 Mil/uL (3.80-5.20); RED CELL DISTRIBUTION WIDTH 15.1 % (11.5-14.5); WHITE BLOOD COUNT 10.6 K/uL (4.8-10.8)
[2017-02-28] MEDS: Cefdinir 300 MG CAP PO SCH ×2 (08:59→16:59)
[2017-02-28] MEDS: Insulin Lispro (humaLOG) 100 Units/ml Inj SC SCH ×7 (08:59→21:18)
[2017-02-28] MEDS: Enoxaparin 40 mg Syringe SC SCH (08:59)
[2017-02-28] MEDS: SILVASORB ANTIMICROBIAL WOUND GEL TP SCH (09:05)
--- NOTE | 2017-02-28 14:06 | PN ---
ENDOCRINOLOGY FOLLOWUP NOTE DATE: ROOM: 410. SUBJECTIVE: This is a 56-year-old female with recent uncontrolled type 2 insulin requiring diabetes presenting here with extremes of glycemic fluctuations related to very poor and suboptimal oral intake at this time. Her glycemic levels are fluctuating, but improved and the latest glucose levels today have ranged from 169 to 194 mg/dL. It was 211 to 297 last night as noted. The latest chemistry showed a BUN of 20, sodium 136, potassium 4.1, chloride 103, CO2 of 27, glucose 169, and creatinine 0.8. So, at this time, we will continue the same basal and bolus insulin regimen to allow for dose of calibration and keep her on the Humalog given a 6 units subcutaneously t.i.d. before meals as given. We will also continue the Levemir given as 12 units subcutaneously at bedtime daily as given. We will titrate incremental indicated to optimize metabolic control. We will obtain serial chemistry and supplemental as needed. We will follow. We will also hold off the resumption of the oral hypoglycemic drug therapy and she was also given Invokana by her primary physician, which caused more dehydration and generalized body weakness with the patient at this time. We will also hold off the Janumet because of the worsening renal insufficiency as noted. We will follow. Mckenzie Ley MD
--- NOTE | 2017-02-28 15:04 | CP.PCM.PN ---
Subjective - Date & Time of Evaluation Date of Evaluation: 02/27/17 Time of Evaluation: 08:00 - Subjective Subjective: patient seen and examined with attending patient feeling better than yesterday no events overnight, but having low grade fever Denies Cp, SOB, N/V, abdominal pain Objective - Vital Signs/Intake and Output Vital Signs (last 24 hours): Temp Pulse Resp BP Pulse Ox 99.9 F H 72 18 142/66 100 02/28/17 12:15 02/28/17 12:15 02/28/17 12:15 02/28/17 12:15 02/28/17 12:15 - Medications Medications: Current Medications Acetaminophen (Tylenol 325mg Tab) 650 mg PO Q6 PRN PRN Reason: Fever >100.4 F Last Admin: 02/27/17 01:13 Dose: 650 mg Aspirin (Ecotrin) 81 mg PO DAILY [facility] Last Admin: 02/28/17 08:58 Dose: 81 mg Cefdinir (Omnicef) 300 mg PO BID [facility] Last Admin: 02/28/17 08:59 Dose: 300 mg Dextrose (Dextrose 50% Inj) 0 ml IVP STAT PRN; Protocol PRN Reason: Hypoglycemia Protocol Enoxaparin Sodium (Lovenox) 40 mg SC DAILY [facility] PRN Reason: Protocol Last Admin: 02/28/17 08:59 Dose: 40 mg Glucagon (Glucagen Diagnostic Kit) 0 mg IM STAT PRN; Protocol PRN Reason: Hypoglycemia Protocol Insulin Detemir (Levemir) 12 units SC HS [facility] Last Admin: 02/27/17 22:33 Dose: 12 units Insulin Human Lispro (Humalog) 0 units SC ACHS [facility] PRN Reason: Protocol Last Admin: 02/28/17 12:38 Dose: Not Given Insulin Human Lispro (Humalog) 6 units SC AC [facility] Last Admin: 02/28/17 12:38 Dose: 6 unit Linezolid (Zyvox) 600 mg PO Q12 [facility] Last Admin: 02/28/17 08:58 Dose: 600 mg Pravastatin Sodium (Pravachol) 40 mg PO HS [facility] Last Admin: 02/27/17 21:08 Dose: 40 mg Pregabalin (Lyrica) 100 mg PO TID [facility] Last Admin: 02/28/17 12:37 Dose: 100 mg Tramadol HCl (Ultram) 50 mg PO Q8 PRN PRN Reason: Pain, moderate (4-7) Last Admin: 02/27/17 17:17 Dose: 50 mg - Labs Labs: 02/28/17 06:00 02/28/17 06:00 - Extremities Exam Additional comments: PT and Dp pulses present and bilateral - Neurological Exam Neurological Exam: Alert, Awake, Oriented x3 - Skin Skin Exam: Dry, Pallor - Additional Findings Additional findings: Constitutional Appears: No Acute Distress - ENT Exam ENT Exam: Mucous Membranes Dry - Respiratory Exam Respiratory Exam: Clear to Auscultation Bilateral, NORMAL BREATHING PATTERN - Cardiovascular Exam Cardiovascular Exam: REGULAR RHYTHM, +S1, +S2 - GI/Abdominal Exam GI & Abdominal Exam: Normal Bowel Sounds, Soft. absent: Distended, Firm, Guarding, Rigid, Tenderness - Extremities Exam Extremities exam: Negative for: calf tenderness Additional comments: Assessment and Plan - Assessment and Plan (Free Text) Assessment: 56 year old female with PMH of DM, osteomyelitis, CHF, HTN, hypercholesterolemia admitted for hypoglycemia, AKF and possible sepsis. Plan: Uncontrolled Diabetes Mellitus -accucheck Q4 hours -c/w diabetic diet -Hypoglycemia protocol -f/u Dr. Ley recommendations Right foot ulcer most likely secondary to Uncontrolled DM complicated with DM neuropathy -h/o osteomyelitis -Leucocytosis -f/u foot x ray results -Start antibiotics: Linezolid and Rocephin - F/u ID recommendations -f/u Podiatry recommendations Anemia no signs of active bleeding, most likely 2/2 deficiencies H/H: 8.6/26.2 consider iron studies f/u CBC Azotemia improving -most likely secondary to TED 2/2 dehydration -BUN/Cr: 42/1.2 today -f/u BMP Sepsis -improving -BP improving, SBP>90 -still leukocytosis, but WBC trending down c/w antibiotics f/u ID recommendations DVT prophylaxis Lovenox 40 mg SC daily
[2017-02-28 18:44] LABS: FOLATE 11.1 ng/mL
--- NOTE | 2017-02-28 19:09 | CP.PCM.PN ---
Subjective - Date & Time of Evaluation Date of Evaluation: 02/28/17 Time of Evaluation: 19:05 - Subjective Subjective: I D NOTE HAD POSITIVE BLOOD CULURE (GRAM POS COCCI IN [facility]) HAVE ORDERED REPEAT BUT SHE IS STILL REFUSING IV ANTIBIOTICS . CONTINUE ZYVOX AND CEPHALOSPORIN DISCUSSED C FP RESIDENT Objective - Vital Signs/Intake and Output Vital Signs (last 24 hours): Temp Pulse Resp BP Pulse Ox 99.5 F 82 20 131/62 98 02/28/17 16:05 02/28/17 16:05 02/28/17 16:05 02/28/17 16:05 02/28/17 16:05 - Medications Medications: Current Medications Acetaminophen (Tylenol 325mg Tab) 650 mg PO Q6 PRN PRN Reason: Fever >100.4 F Last Admin: 02/27/17 01:13 Dose: 650 mg Aspirin (Ecotrin) 81 mg PO DAILY [facility] Last Admin: 02/28/17 08:58 Dose: 81 mg Cefdinir (Omnicef) 300 mg PO BID [facility] Last Admin: 02/28/17 16:59 Dose: 300 mg Dextrose (Dextrose 50% Inj) 0 ml IVP STAT PRN; Protocol PRN Reason: Hypoglycemia Protocol Enoxaparin Sodium (Lovenox) 40 mg SC DAILY [facility] PRN Reason: Protocol Last Admin: 02/28/17 08:59 Dose: 40 mg Glucagon (Glucagen Diagnostic Kit) 0 mg IM STAT PRN; Protocol PRN Reason: Hypoglycemia Protocol Insulin Detemir (Levemir) 12 units SC HS [facility] Last Admin: 02/27/17 22:33 Dose: 12 units Insulin Human Lispro (Humalog) 0 units SC ACHS [facility] PRN Reason: Protocol Last Admin: 02/28/17 16:59 Dose: Not Given Insulin Human Lispro (Humalog) 6 units SC AC [facility] Last Admin: 02/28/17 16:59 Dose: 6 unit Linezolid (Zyvox) 600 mg PO Q12 [facility] Last Admin: 02/28/17 08:58 Dose: 600 mg Pravastatin Sodium (Pravachol) 40 mg PO HS [facility] Last Admin: 02/27/17 21:08 Dose: 40 mg Pregabalin (Lyrica) 100 mg PO TID [facility] Last Admin: 02/28/17 16:59 Dose: 100 mg Tramadol HCl (Ultram) 50 mg PO Q8 PRN PRN Reason: Pain, moderate (4-7) Last Admin: 02/27/17 17:17 Dose: 50 mg - Labs Labs: 02/28/17 06:00 02/28/17 06:00
[2017-02-28] MEDS: Linezolid 600 mg in D5W 300 ml 600 MG/300 ML BAG IVPB SCH (21:14)
[2017-02-28] MEDS: Insulin Detemir 100 Units/ml Inj SC SCH (21:15)
[2017-02-28] MEDS: Pravastatin Sodium 40 MG TAB PO SCH (21:15)
[2017-03-01] MEDS: cefTRIAXone 2 GM in Sodium Chloride 0.9% 100 ML IVPB SCH (08:40)
[2017-03-01] MEDS: SILVASORB ANTIMICROBIAL WOUND GEL TP SCH ×2 (08:41→12:00)
[2017-03-01] MEDS: Linezolid 600 mg in D5W 300 ml 600 MG/300 ML BAG IVPB SCH ×2 (08:41→21:38)
[2017-03-01] MEDS: Enoxaparin 40 mg Syringe SC SCH (08:41)
[2017-03-01] MEDS: Insulin Lispro (humaLOG) 100 Units/ml Inj SC SCH ×7 (08:42→21:35)
--- NOTE | 2017-03-01 13:31 | PN ---
ENDO FOLLOWUP NOTE LOCATION: Room 410 This is a 56-year-old female with recent uncontrolled type 2 insulin requiring diabetes, now being followed closely for metabolic management. She presented here with symptomatic hypoglycemia and associated neuroglycopenic and hyperadrenergic manifestation from the same. She admits to very poor and viable suboptimal meal portions at home, and apparently, had a syncopal event witnessed by the son as noted. At this time, her glycemic levels are fluctuating but improved, and the glucose values ranged from 90 to 250 and 270 mg/dL. Her latest chemistry showed a BUN of 20, sodium 136, potassium 4.1, chloride 103, CO2 of 27, glucose 169, creatinine 0.8. So at this time, we will modify her basal and bolus insulin regimen and increase the Humalog to 10 units subcu q.i.d. before meals just today as ordered to you. We also increased the Levemir to 18 units subcu at bed time daily as ordered. We will continue the low-dose correction scale using Humalog insulin as given. We will follow and advise accordingly. Mckenzie Ley MD
[2017-03-01] MEDS: Pravastatin Sodium 40 MG TAB PO SCH (21:37)
[2017-03-01] MEDS ORDERED: Insulin Detemir 100 Units/ml Inj SC SCH ×2 (22:00→22:01)
[2017-03-02] MEDS: Insulin Lispro (humaLOG) 100 Units/ml Inj SC SCH ×7 (06:50→21:33)
--- NOTE | 2017-03-02 07:24 | CP.PCM.PN ---
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 Patient is seen sitting in bed. Patient is AAO x3 and NAD. Denies n/v/sob/cp/chills or f. Denies any acute events overnight. States her foot it not bothering her much today. Objective - Vital Signs/Intake and Output Vital Signs (last 24 hours): Temp Pulse Resp BP Pulse Ox 99.3 F 70 20 126/61 98 03/02/17 05:17 03/02/17 05:17 03/02/17 05:17 03/02/17 05:17 03/02/17 05:17 - Medications Medications: Current Medications Acetaminophen (Tylenol 325mg Tab) 650 mg PO Q6 PRN PRN Reason: Fever >100.4 F Last Admin: 03/01/17 16:03 Dose: 650 mg Aspirin (Ecotrin) 81 mg PO DAILY [facility] Last Admin: 03/01/17 08:43 Dose: 81 mg Dextrose (Dextrose 50% Inj) 0 ml IVP STAT PRN; Protocol PRN Reason: Hypoglycemia Protocol Glucagon (Glucagen Diagnostic Kit) 0 mg IM STAT PRN; Protocol PRN Reason: Hypoglycemia Protocol Ceftriaxone Sodium 2 gm/ (Sodium Chloride) 100 mls @ 100 mls/hr IVPB DAILY [facility] Last Admin: 03/01/17 08:40 Dose: 100 mls/hr Linezolid (Zyvox 600mg/300ml D5w) 600 mg in 300 mls @ 300 mls/hr IVPB Q12 [facility] Last Admin: 03/01/17 21:38 Dose: 300 mls/hr Insulin Detemir (Levemir) 20 units SC HS [facility] Insulin Human Lispro (Humalog) 0 units SC ACHS [facility] PRN Reason: Protocol Last Admin: 03/02/17 06:50 Dose: Not Given Insulin Human Lispro (Humalog) 12 units SC AC [facility] Pravastatin Sodium (Pravachol) 40 mg PO HS [facility] Last Admin: 03/01/17 21:37 Dose: 40 mg Pregabalin (Lyrica) 100 mg PO TID [facility] Last Admin: 03/01/17 16:41 Dose: 100 mg Sitagliptin Phosphate (Januvia) 100 mg PO DAILY [facility] Last Admin: 03/01/17 11:59 Dose: 100 mg Tramadol HCl (Ultram) 50 mg PO Q8 PRN PRN Reason: Pain, moderate (4-7) Last Admin: 02/27/17 17:17 Dose: 50 mg - Labs Labs: 02/28/17 06:00 02/28/17 06:00 - Constitutional Appears: Well, Non-toxic, No Acute Distress - Extremities Exam Additional comments: Vascular: DP and PT 1/4 bilaterally, 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 Wound base is 80% granular and 20% fibrotic. Wound edges are hyperkeratotic and intact. Very limited macerated at lateral ulcer periwound. No erythema noted, no purulence, no malodor, or no fluctuance. Mild sangious serous drainage noted. Wound does not probe to bone. No tunneling noted - Neurological Exam Neurological Exam: Alert, Awake, Oriented x3 - Psychiatric Exam Psychiatric exam: Normal Affect, Normal Mood Assessment and Plan - Assessment and Plan (Free Text) Assessment: 56 year old female with PMH of DM, osteomyelitis, CHF, HTN, hypercholesterolemia for R chronic foot ulceration secondary to DM neuropathy Plan: Pt seen and examined at bedside Discussed plan in detail with attending Dr. Kaur Charts, labs, and vitals reviewed: afebrile, WBC is trending down Wound cleansed with saline, dressed Silvasorb, 4x4, ABD, and kerlix Duplex of right lower extremity- negative DVT X-rays-no acute osseous findings Wound culture-Corynebacterium Urine Culture-Citrobacter Freundii Blood venous culture- Gram positive cocci Stable from podiatry standpoint Podiatry will continue to follow while in house
[2017-03-02] MEDS: cefTRIAXone 2 GM in Sodium Chloride 0.9% 100 ML IVPB SCH (08:00)
[2017-03-02] MEDS: Linezolid 600 mg in D5W 300 ml 600 MG/300 ML BAG IVPB SCH ×2 (08:46→21:30)
[2017-03-02] MEDS: SILVASORB ANTIMICROBIAL WOUND GEL TP SCH (08:46)
[2017-03-02] MEDS ORDERED: EPOETIN ALFA 10,000 UNIT/ML ML SC ONE (09:50)
--- NOTE | 2017-03-02 10:03 | CP.PCM.PN ---
Subjective - Date & Time of Evaluation Date of Evaluation: 02/28/17 Time of Evaluation: 09:15 - Subjective Subjective: Patient remains stable Noted improvement of renal function Accuchecks still elevated Objective - Vital Signs/Intake and Output Vital Signs (last 24 hours): Temp Pulse Resp BP Pulse Ox 98.4 F 62 18 113/63 98 03/02/17 08:00 03/02/17 08:00 03/02/17 08:00 03/02/17 08:00 03/02/17 08:00 - Medications Medications: Current Medications Acetaminophen (Tylenol 325mg Tab) 650 mg PO Q6 PRN PRN Reason: Fever >100.4 F Last Admin: 03/01/17 16:03 Dose: 650 mg Aspirin (Ecotrin) 81 mg PO DAILY [facility] Last Admin: 03/02/17 08:43 Dose: 81 mg Dextrose (Dextrose 50% Inj) 0 ml IVP STAT PRN; Protocol PRN Reason: Hypoglycemia Protocol Docusate Sodium (Colace) 100 mg PO BID [facility] Epoetin Gary (Procrit) 10,000 unit SC ONCE ONE Stop: 03/02/17 09:51 Glucagon (Glucagen Diagnostic Kit) 0 mg IM STAT PRN; Protocol PRN Reason: Hypoglycemia Protocol Ceftriaxone Sodium 2 gm/ (Sodium Chloride) 100 mls @ 100 mls/hr IVPB DAILY [facility] Last Admin: 03/02/17 08:00 Dose: 100 mls/hr Linezolid (Zyvox 600mg/300ml D5w) 600 mg in 300 mls @ 300 mls/hr IVPB Q12 [facility] Last Admin: 03/02/17 08:46 Dose: 300 mls/hr Iron Sucrose 100 mg/ Sodium (Chloride) 105 mls @ 105 mls/hr IVPB DAILY [facility] Insulin Detemir (Levemir) 20 units SC HS [facility] Insulin Human Lispro (Humalog) 0 units SC ACHS [facility] PRN Reason: Protocol Last Admin: 03/02/17 06:50 Dose: Not Given Insulin Human Lispro (Humalog) 12 units SC AC [facility] Last Admin: 03/02/17 08:00 Dose: 12 units Oxycodone/Acetaminophen (Percocet 5/325 Mg Tab) 1 tab PO Q6 PRN PRN Reason: Pain, severe (8-10) Stop: 03/05/17 07:41 Pravastatin Sodium (Pravachol) 40 mg PO HS [facility] Last Admin: 03/01/17 21:37 Dose: 40 mg Pregabalin (Lyrica) 100 mg PO TID [facility] Last Admin: 03/02/17 08:48 Dose: 100 mg Sitagliptin Phosphate (Januvia) 100 mg PO DAILY [facility] Last Admin: 03/02/17 08:45 Dose: 100 mg - Labs Labs: 02/28/17 06:00 02/28/17 06:00
--- NOTE | 2017-03-02 10:05 | CP.PCM.PN ---
Subjective - Date & Time of Evaluation Date of Evaluation: 03/01/17 Time of Evaluation: 09:30 - Subjective Subjective: patient remains stable Has no chest pain or SOB Has minimal pain on the right foot. Has no headaches. Objective - Vital Signs/Intake and Output Vital Signs (last 24 hours): Temp Pulse Resp BP Pulse Ox 98.4 F 62 18 113/63 98 03/02/17 08:00 03/02/17 08:00 03/02/17 08:00 03/02/17 08:00 03/02/17 08:00 - Medications Medications: Current Medications Acetaminophen (Tylenol 325mg Tab) 650 mg PO Q6 PRN PRN Reason: Fever >100.4 F Last Admin: 03/01/17 16:03 Dose: 650 mg Aspirin (Ecotrin) 81 mg PO DAILY [facility] Last Admin: 03/02/17 08:43 Dose: 81 mg Dextrose (Dextrose 50% Inj) 0 ml IVP STAT PRN; Protocol PRN Reason: Hypoglycemia Protocol Docusate Sodium (Colace) 100 mg PO BID [facility] Epoetin Gary (Procrit) 10,000 unit SC ONCE ONE Stop: 03/02/17 09:51 Glucagon (Glucagen Diagnostic Kit) 0 mg IM STAT PRN; Protocol PRN Reason: Hypoglycemia Protocol Ceftriaxone Sodium 2 gm/ (Sodium Chloride) 100 mls @ 100 mls/hr IVPB DAILY [facility] Last Admin: 03/02/17 08:00 Dose: 100 mls/hr Linezolid (Zyvox 600mg/300ml D5w) 600 mg in 300 mls @ 300 mls/hr IVPB Q12 [facility] Last Admin: 03/02/17 08:46 Dose: 300 mls/hr Iron Sucrose 100 mg/ Sodium (Chloride) 105 mls @ 105 mls/hr IVPB DAILY [facility] Insulin Detemir (Levemir) 20 units SC HS [facility] Insulin Human Lispro (Humalog) 0 units SC ACHS [facility] PRN Reason: Protocol Last Admin: 03/02/17 06:50 Dose: Not Given Insulin Human Lispro (Humalog) 12 units SC AC [facility] Last Admin: 03/02/17 08:00 Dose: 12 units Oxycodone/Acetaminophen (Percocet 5/325 Mg Tab) 1 tab PO Q6 PRN PRN Reason: Pain, severe (8-10) Stop: 03/05/17 07:41 Pravastatin Sodium (Pravachol) 40 mg PO HS [facility] Last Admin: 03/01/17 21:37 Dose: 40 mg Pregabalin (Lyrica) 100 mg PO TID [facility] Last Admin: 03/02/17 08:48 Dose: 100 mg Sitagliptin Phosphate (Januvia) 100 mg PO DAILY [facility] Last Admin: 03/02/17 08:45 Dose: 100 mg - Labs Labs: 02/28/17 06:00 02/28/17 06:00
[2017-03-02] MEDS: Oxycodone/Acetaminophen 5/325 mg Tab PO PRN ×2 (17:14→23:25)
[2017-03-02] MEDS: Pravastatin Sodium 40 MG TAB PO SCH (21:30)
[2017-03-02] MEDS ORDERED: Insulin Detemir 100 Units/ml Inj SC SCH (22:00)
--- NOTE | 2017-03-02 23:24 | PN ---
LOCATION: Room 410. SUBJECTIVE: This is a 56-year-old female with recent uncontrolled type 2 insulin requiring diabetes, now with improved oral intake and supervening hyperglycemic acceleration as noted thereof. Her overnight glucose levels have ranged from 261 to 276 and 345 mg/dL. Today's her glucose level have ranged from 261 to 292 mg/dL. Her latest chemistries showed BUN of 20, sodium 136, potassium 4.1, chloride 103, CO2 of 27, glucose 169 and creatinine 0.8. So at this time, we will modify once again her basal and bolus insulin regimen and increase the Levemir to 30 units subcu at bed time daily to start tonight. We will also increase the Humalog to 14 units subcu t.i.d. before meal to start at dinnertime today as ordered. We will titrate incremental as indicated to optimize metabolic control. We will obtain serum chemistries and supplement accordingly as needed. We will follow with you. Mckenzie Ley MD
[2017-03-03 05:24] VITALS: RESP 18
[2017-03-03] MEDS: Insulin Lispro (humaLOG) 100 Units/ml Inj SC SCH ×3 (06:30→13:00)
[2017-03-03 07:23] LABS: ALB/GLOB RATIO 0.8 (1.0-2.1); ALBUMIN 3.1 g/dL (3.5-5.0); ALT/SGPT 34 U/L (9-52); AST/SGOT 23 U/L (14-36); BLOOD UREA NITROGEN 16 mg/dl (7-17); GFR AFRICAN-AMERICAN > 60; GFR NON-AFRICAN AMERICAN 57
[2017-03-03 07:25] LABS: BASO % 0.3 % (0.0-2.0); EOS # 0.1 K/uL (0.0-0.7); EOS % 1.1 % (0.0-4.0); LYMPH # 1.2 K/uL (1.0-4.3); LYMPH % 10.9 % (20.0-40.0); MEAN CELL VOLUME 88.5 fl (81.0-99.0); MEAN CORPUSCULAR HEMOGLOBIN 29.2 pg (27.0-31.0); MEAN PLATELET VOLUME 8.5 fl (7.2-11.7); MONO % 9.1 % (0.0-10.0); NEUT # 8.9 K/uL (1.8-7.0); NEUT % 78.6 % (50.0-75.0); NRBC % 0.1 % (0.0-0.0); RBC 3.09 Mil/uL (3.80-5.20); RED CELL DISTRIBUTION WIDTH 15.2 % (11.5-14.5); WHITE BLOOD COUNT 11.3 K/uL (4.8-10.8)
[2017-03-03] MEDS: Linezolid 600 mg in D5W 300 ml 600 MG/300 ML BAG IVPB SCH (08:18)
--- NOTE | 2017-03-03 10:18 | CP.PCM.PN ---
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 Patient is seen sitting in bed. Patient is AAO x3 and NAD. She says she is feeling better. Also states she has an appointment with Dr. Kaur scheduled for continue wound care management of right foot. Denies n/v/sob/cp/chills or f. Denies any acute events overnight. States that she is being d/c today. Objective - Vital Signs/Intake and Output Vital Signs (last 24 hours): Temp Pulse Resp BP Pulse Ox 97.8 F 66 18 109/65 97 03/03/17 08:00 03/03/17 08:00 03/03/17 08:00 03/03/17 08:00 03/03/17 08:00 Intake and Output: 03/03/17 03/03/17 06:59 18:59 Intake Total 1690 Output Total 650 Balance 1040 - Medications Medications: Current Medications Acetaminophen (Tylenol 325mg Tab) 650 mg PO Q6 PRN PRN Reason: Fever >100.4 F Last Admin: 03/01/17 16:03 Dose: 650 mg Aspirin (Ecotrin) 81 mg PO DAILY [facility] Last Admin: 03/03/17 08:24 Dose: 81 mg Dextrose (Dextrose 50% Inj) 0 ml IVP STAT PRN; Protocol PRN Reason: Hypoglycemia Protocol Docusate Sodium (Colace) 100 mg PO BID [facility] Last Admin: 03/03/17 08:23 Dose: Not Given Glucagon (Glucagen Diagnostic Kit) 0 mg IM STAT PRN; Protocol PRN Reason: Hypoglycemia Protocol Ceftriaxone Sodium 2 gm/ (Sodium Chloride) 100 mls @ 100 mls/hr IVPB DAILY [facility] Last Admin: 03/02/17 08:00 Dose: 100 mls/hr Linezolid (Zyvox 600mg/300ml D5w) 600 mg in 300 mls @ 300 mls/hr IVPB Q12 [facility] Last Admin: 03/03/17 08:18 Dose: 300 mls/hr Iron Sucrose 100 mg/ Sodium (Chloride) 105 mls @ 105 mls/hr IVPB DAILY [facility] Last Admin: 03/02/17 11:43 Dose: 105 mls/hr Insulin Detemir (Levemir) 40 units SC HS [facility] Insulin Human Lispro (Humalog) 0 units SC ACHS [facility] PRN Reason: Protocol Last Admin: 03/03/17 06:30 Dose: Not Given Insulin Human Lispro (Humalog) 20 units SC AC [facility] Oxycodone/Acetaminophen (Percocet 5/325 Mg Tab) 1 tab PO Q6 PRN PRN Reason: Pain, severe (8-10) Stop: 03/05/17 07:41 Last Admin: 03/02/17 23:25 Dose: 1 tab Pravastatin Sodium (Pravachol) 40 mg PO HS [facility] Last Admin: 03/02/17 21:30 Dose: 40 mg Pregabalin (Lyrica) 100 mg PO TID [facility] Last Admin: 03/03/17 08:32 Dose: 100 mg Sitagliptin Phosphate (Januvia) 100 mg PO DAILY [facility] Last Admin: 03/03/17 08:24 Dose: 100 mg - Labs Labs: 03/03/17 06:50 03/03/17 06:50 - Constitutional Appears: Well, Non-toxic, No Acute Distress - Extremities Exam Additional comments: Vascular: DP and PT 1/4 bilaterally, 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 Wound base is 80% granular and 20% fibrotic. Wound edges are hyperkeratotic and intact. Very limited macerated at lateral ulcer periwound. No erythema noted, no purulence, no malodor, or no fluctuance. Mild sangious serous drainage noted. Wound does not probe to bone. No tunneling noted - Neurological Exam Neurological Exam: Alert, Awake, Oriented x3 - Psychiatric Exam Psychiatric exam: Normal Affect, Normal Mood Assessment and Plan - Assessment and Plan (Free Text) Assessment: 56 year old female seen at bedside for R chronic foot ulceration secondary to DM neuropathy Plan: Pt seen and examined at bedside Discussed plan in detail with attending Dr. Kaur Charts, labs, and vitals reviewed: afebrile, WBC is 11.3 today Wound cleansed with saline, dressed Silvasorb, 4x4, ABD, and kerlix Duplex of right lower extremity- negative DVT X-rays-no acute osseous findings Wound culture-Corynebacterium Urine Culture-Citrobacter Freundii Blood venous culture- Gram positive cocci Stable from podiatry standpoint Podiatry will continue to follow while in house
[2017-03-03] MEDS: SILVASORB ANTIMICROBIAL WOUND GEL TP SCH (11:00)
[2017-03-03] MEDS: cefTRIAXone 2 GM in Sodium Chloride 0.9% 100 ML IVPB SCH (11:01)
[2017-03-03] MEDS ORDERED: Insulin Lispro (humaLOG) 100 Units/ml Inj SC SCH ×2 (11:30→16:30)
[2017-03-03] MEDS: Oxycodone/Acetaminophen 5/325 mg Tab PO PRN (11:46)
[2017-03-03 12:42] VITALS: BP 144/77; PULSE 75; TEMP 97.9; O2SAT 100
--- NOTE | 2017-03-03 17:37 | CP.PCM.DIS ---
Provider - Provider Date of Admission: 02/26/17 10:24 Attending physician: Pavel Willoughby MD Time Spent in preparation of Discharge (in minutes): 30 Diagnosis - Discharge Diagnosis (1) Systemic inflammatory response syndrome (SIRS) Status: Acute Comment: resolved during admission. F/u with PMD in 1 week (2) Uncontrolled type 2 diabetes mellitus Status: Chronic Comment: continue f/u as outpatient with PMD. Patient was seen by [employer] Operator, Dr. Ley, during admission. (3) Diabetic ulcer of right foot Status: Chronic Comment: c/w Podiatry f/u, Dr. Kaur in wound care clinic as scheduled, and wound care at home as recommended by podiatry. (4) Dehydration Status: Acute Comment: resolved during admission Hospital Course - Lab Results Lab Results: Micro Results 03/01/17 06:36 Blood Blood Culture - Preliminary NO GROWTH AFTER 48 HOURS 02/26/17 16:50 Foot - Right Gram Stain - Final 02/26/17 16:50 Foot - Right Wound Culture - Final Corynebacterium Species Most Recent Lab Values WBC 11.3 K/uL (4.8-10.8) H 03/03/17 06:50 RBC 3.09 Mil/uL (3.80-5.20) L 03/03/17 06:50 Hgb 9.0 g/dL (12.0-16.0) L 03/03/17 06:50 Hct 27.3 % (34.0-47.0) L 03/03/17 06:50 MCV 88.5 fl (81.0-99.0) 03/03/17 06:50 MCH 29.2 pg (27.0-31.0) 03/03/17 06:50 MCHC 33.0 g/dL (33.0-37.0) 03/03/17 06:50 RDW 15.2 % (11.5-14.5) H 03/03/17 06:50 Plt Count 278 K/uL (130-400) 03/03/17 06:50 MPV 8.5 fl (7.2-11.7) 03/03/17 06:50 Neut % (Auto) 78.6 % (50.0-75.0) H 03/03/17 06:50 Lymph % (Auto) 10.9 % (20.0-40.0) L 03/03/17 06:50 [place] % (Auto) 9.1 % (0.0-10.0) 03/03/17 06:50 Eos % (Auto) 1.1 % (0.0-4.0) 03/03/17 06:50 Baso % (Auto) 0.3 % (0.0-2.0) 03/03/17 06:50 Neut # 8.9 K/uL (1.8-7.0) H 03/03/17 06:50 Lymph # 1.2 K/uL (1.0-4.3) 03/03/17 06:50 [place] # 1.0 K/uL (0.0-0.8) H 03/03/17 06:50 Eos # 0.1 K/uL (0.0-0.7) 03/03/17 06:50 Baso # 0.0 K/uL (0.0-0.2) 03/03/17 06:50 Neutrophils % (Manual) 90 % (42-75) H 02/26/17 07:45 Lymphocytes % (Manual) 5 % (20-50) L 02/26/17 07:45 Monocytes % (Manual) 3 % (0-10) 02/26/17 07:45 Eosinophils % (Manual) 2 % (0-7) 02/26/17 07:45 Platelet Estimate Normal (NORMAL) 02/26/17 07:45 Large Platelets Present 02/26/17 07:45 Anisocytosis (manual) Slight 02/26/17 07:45 Macrocytosis (manual) Slight 02/26/17 07:45 Tear Drop Cells Slight 02/26/17 07:45 Ovalocytes Slight 02/26/17 07:45 pO2 50 mm/Hg (30-55) 02/26/17 08:15 VBG pH 7.44 (7.32-7.43) H 02/26/17 08:15 VBG pCO2 35 mmHg (40-60) L 02/26/17 08:15 VBG HCO3 24.7 mmol/L 02/26/17 08:15 VBG Total CO2 24.9 mmol/L (22-28) 02/26/17 08:15 VBG O2 Sat (Calc) 95.6 % (40-65) H 02/26/17 08:15 VBG Base Excess 0.1 mmol/L (0.0-2.0) 02/26/17 08:15 Sodium 190.0 mmol/L (132-148) H* 02/26/17 08:15 Chloride 105.0 mmol/L (98-107) 02/26/17 08:15 Glucose 164 mg/dL (65-105) H 02/26/17 08:15 Lactate 2.4 mmol/L (0.7-2.1) H 02/26/17 08:15 FiO2 21.0 % 02/26/17 08:15 Crit Value Called To Dr julian vroa 02/26/17 08:15 Crit Value Called By Rt 02/26/17 08:15 Crit Value Read Back Y 02/26/17 08:15 Blood Gas Notified Time 820 02/26/17 08:15 Sodium 134 mmol/l (132-148) 03/03/17 06:50 Potassium 4.9 MMOL/L (3.6-5.0) 03/03/17 06:50 Chloride 100 mmol/L (98-107) 03/03/17 06:50 Carbon Dioxide 28 mmol/L (22-30) 03/03/17 06:50 Anion Gap 11 (10-20) 03/03/17 06:50 BUN 16 mg/dl (7-17) 03/03/17 06:50 Creatinine 1.0 mg/dL (0.7-1.2) 03/03/17 06:50 Est GFR ( Amer) > 60 03/03/17 06:50 Est GFR (Non-Af Amer) 57 03/03/17 06:50 POC Glucose (mg/dL) 402 mg/dL (65-110) H* 03/03/17 11:36 Random Glucose 242 mg/dL (65-105) H 03/03/17 06:50 Hemoglobin A1c 9.3 % (4.2-6.5) H 02/27/17 05:15 Lactic Acid 0.8 MMOL/L (0.7-2.1) 02/27/17 05:50 Calcium 9.0 mg/dL (8.4-10.2) 03/03/17 06:50 Iron 16 ug/dL (37-170) L 02/27/17 06:00 TIBC 222 ug/dL (250-450) L 02/27/17 06:00 % Saturation 7 % (20-55) L 02/27/17 06:00 Ferritin 273.0 ng/mL 02/28/17 06:00 Total Bilirubin 0.4 mg/dl (0.2-1.3) 03/03/17 06:50 AST 23 U/L (14-36) 03/03/17 06:50 ALT 34 U/L (9-52) 03/03/17 06:50 Alkaline Phosphatase 416 U/L (38-126) H 03/03/17 06:50 Total Creatine Kinase 248 U/L (30-135) H 02/27/17 05:10 Troponin I 0.0350 ng/mL (0.00-0.120) 02/26/17 07:45 Total Protein 7.1 G/DL (6.3-8.2) 03/03/17 06:50 Albumin 3.1 g/dL (3.5-5.0) L 03/03/17 06:50 Globulin 4.0 gm/dL (2.2-3.9) H 03/03/17 06:50 Albumin/Globulin Ratio 0.8 (1.0-2.1) L 03/03/17 06:50 Triglycerides 199 mg/DL (0-149) H 02/27/17 05:10 Cholesterol 122 mg/dL (0-199) 02/27/17 05:10 LDL Cholesterol Direct 51 mg/dL (0-129) 02/27/17 05:10 HDL Cholesterol 13 MG/DL (30-70) L 02/27/17 05:10 Vitamin B12 853 pg/mL (239-931) 02/28/17 06:00 Folate 11.1 ng/mL 02/28/17 06:00 Procalcitonin 0.29 NG/ML (0.19-0.49) 03/01/17 06:00 TSH 3rd Generation 0.31 mIU/ML (0.46-4.68) L 02/27/17 05:10 Urine Color Yellow (YELLOW) 02/26/17 09:55 Urine Clarity Cloudy (Clear) 02/26/17 09:55 Urine pH 6.0 (5.0-8.0) 02/26/17 09:55 Ur Specific [place] 1.011 (1.003-1.030) 02/26/17 09:55 Urine Protein 30 mg/dL (NEGATIVE) 02/26/17 09:55 Urine Glucose (UA) 150 mg/dL (Normal) 02/26/17 09:55 Urine Ketones Negative mg/dL (NEGATIVE) 02/26/17 09:55 Urine Blood Moderate (NEGATIVE) 02/26/17 09:55 Urine Nitrate Negative (NEGATIVE) 02/26/17 09:55 Urine Bilirubin Negative (NEGATIVE) 02/26/17 09:55 Urine Urobilinogen 0.2-1.0 mg/dL (0.2-1.0) 08 09:55 Ur Leukocyte Esterase Large Kari/uL (Negative) 02/26/17 09:55 Urine RBC (Auto) 2 /hpf (0-3) 02/26/17 09:55 Urine Microscopic WBC 18 /hpf (0-5) H 02/26/17 09:55 Ur Squamous Epith Cells 1 /hpf (0-5) 02/26/17 09:55 Urine Bacteria Rare (<OCC) 02/26/17 09:55 - Date & Time of H&P Date of H&P: 02/26/17 Time of H&P: 12:55 Discharge Exam - Head Exam Head Exam: ATRAUMATIC, NORMAL INSPECTION, NORMOCEPHALIC - ENT Exam ENT Exam: Mucous Membranes Moist - Respiratory Exam Respiratory Exam: Clear to PA & Lateral, NORMAL BREATHING PATTERN - Cardiovascular Exam Cardiovascular Exam: REGULAR RHYTHM, +S1, +S2 - GI/Abdominal Exam GI & Abdominal Exam: Normal Bowel Sounds, Soft. absent: Guarding, Rigid, Tenderness - Extremities Exam Additional comments: no calf tenderness, no edema - Neurological Exam Neurological exam: Alert, Oriented x3 - Skin Skin Exam: Dry, Intact, Pallor Discharge Plan - Discharge Medications Prescriptions: Cefuroxime Axetil [Cefuroxime] 500 mg PO BID #28 tablet Docusate [Colace] 100 mg PO BID #30 cap Ferrous Sulfate 325 mg PO BID #60 tablet Pregabalin [Lyrica] 100 mg PO TID #90 cap Silver [Silvasorb Antimicrobial Wound Gel] 1 applic TP DAILY #1 gel SITagliptin [Januvia] 100 mg PO DAILY #30 tab - Follow Up Plan Condition: STABLE Disposition: HOME/ ROUTINE Instructions: Diabetic Foot Ulcers (DC) Additional Instructions: patient cleared for discharge to home today by and - cont. ceftin 500 mg po bid x 2 weeks per E rx sent to [facility] pharmacy pt. will f/u with and in1 week Referrals: Pavel Willoughby MD [Staff Provider] - Jonatan Kaur DPM [Doctor Podiatric Medicine] -
--- NOTE | 2017-03-03 17:49 | PN ---
ENDO FOLLOWUP NOTE. LOCATION: Room 410. SUBJECTIVE: This is a 56-year-old female with recent uncontrolled type 2 insulin requiring diabetes, now being followed closely for metabolic management. Her glycemic levels are still fluctuating with persistent hyperglycemic acceleration as noted thereof. Her oral intake is much improved at this time as per the nursing staff. Her glucose values today have ranged from 240 to 331 and 402 mg/dL. Her latest chemistry show the BUN of 16, sodium 134, potassium 4.9, chloride of 100, CO2 of 28, glucose 242 and creatinine 1.0. So at this time, we will actually modify once again her basal and bolus insulin regimen and increase the Levemir to 44 units subcu at bed time daily to start to tonight. We will also increase the Humalog to 24 units subcu t.i.d. before meals to start at dinner time today as ordered. We will continue the low-dose correction scale using Humalog insulin as ordered. We will obtain serum chemistries and supplement accordingly as needed. We will follow and advise accordingly. Mckenzie Ley MD
[2017-03-03] MEDS ORDERED: Insulin Detemir 100 Units/ml Inj SC SCH ×2 (22:00)
--- NOTE | 2017-03-04 12:01 | PQF CHF ---
DR AMADO, Pt. with history of CHF documented throughout chart. Can you please specify if known the type of CHF for pt. If Systolic or Diastolic or combination of both ; and if Acute or Chronic or combination of Acute on Chronic. This form is a permanent part of the medical record Clarification of your documentation is requested to better reflect the severity of illness and intensity of treatment of your patient. Indicators present [] Diagnosis of CHF and/or history of CHF [] BNP > 200 [] Imaging Finding of Pulmonary Edema /Pleural Effusions [] Fluid/Volume Overload [] Pitting edema [] Ejection Fraction < 40% (Indicative of Systolic Heart Failure) [] Ejection Fraction > 40% (Indicative of Diastolic Heart Failure) [] Dyspnea / Orthopenea / Paroxysmal Nocturnal Dyspnea [] Other: Location in the medical record that reflects the above clinical findings: [] Treatment Provided: [] PHYSICIAN'S RESPONSE Based on your medical judgment of the clinical indicators outlined above, are you treating this patient for a known or suspected: [] Acute CHF [] Systolic [] Diastolic [] Combined [] Chronic CHF [] Systolic [] Diastolic [] Combined [] Acute on Chronic CHF []Systolic [] Diastolic [] Combined [] CHF due hypertension [] Acute systolic []Chronic systolic [] Acute/ chronic systolic [] Other, please indicate: [] [] If Unable to Determine, please check the box, sign and date. Present On Admission (POA) Indicator: [] Present at the time of admission [] Not present at the time of admission [] Clinically Undetermined In responding to this query, please exercise your independent professional judgment. The fact that a question is asked does not imply that any particular answer is desired or expected. Thank you for your clarification on this documentation. If you have any questions please call:[ ] * Thank you, [ ]SUZANNE HENDERSON inventory accountant GUSTAVO
== END 2017-03-03 15:49 | disposition home or self-care (01) | DRG 872 ==
LOC: H.ER 07:23 → H.ERHOLD 10:24 → H.TEL 12:06
PROVIDERS: ADMIT Family Medicine; ATTEND Family Medicine
DX: A41.9 Sepsis, unspecified organism (principal); N17.9 Acute kidney failure, unspecified; E11.21 Type 2 diabetes mellitus with diabetic nephropathy; E11.42 Type 2 diabetes mellitus with diabetic polyneuropathy; L97.419 Non-pressure chronic ulcer of right heel and midfoot with unspecified severity; N39.0 Urinary tract infection, site not specified; E11.621 Type 2 diabetes mellitus with foot ulcer; E11.22 Type 2 diabetes mellitus with diabetic chronic kidney disease; E11.649 Type 2 diabetes mellitus with hypoglycemia without coma; E11.319 Type 2 diabetes mellitus with unspecified diabetic retinopathy without macular edema; E86.0 Dehydration; I12.9 Hypertensive chronic kidney disease with stage 1 through stage 4 chronic kidney disease, or unspecified chronic kidney disease; N18.9 Chronic kidney disease, unspecified; I25.10 Atherosclerotic heart disease of native coronary artery without angina pectoris; I73.9 Peripheral vascular disease, unspecified; D53.9 Nutritional anemia, unspecified; E78.5 Hyperlipidemia, unspecified; K21.9 Gastro-esophageal reflux disease without esophagitis; E78.00 Pure hypercholesterolemia, unspecified; J45.909 Unspecified asthma, uncomplicated; E66.9 Obesity, unspecified; Z68.34 Body mass index [BMI] 34.0-34.9, adult; F17.210 Nicotine dependence, cigarettes, uncomplicated; Z79.4 Long term (current) use of insulin; Z88.1 Allergy status to other antibiotic agents; Z79.02 Long term (current) use of antithrombotics/antiplatelets; Z79.82 Long term (current) use of aspirin; Z86.79 Personal history of other diseases of the circulatory system; Z87.39 Personal history of other diseases of the musculoskeletal system and connective tissue

== ENCOUNTER 2017-03-12 14:15 | Inpatient (IN) | payer MEDICARE, OTHER ==
[2017-03-12 14:15] VITALS: BMI 33.7
[~2017-03-12 14:15] MED LIST: Lactated Ringer's 1,000 ML IV ONE; Meropenem 500 mg Inj IVPB ONE
[2017-03-12] MEDS ORDERED: Sodium Chloride 0.9% 1,000 ML IV STA (14:27)
[2017-03-12 14:46] LABS: VENOUS BLOOD GAS BASE EXCESS -0.5 mmol/L (0.0-2.0); VENOUS BLOOD GAS PCO2 39 mmHg (40-60)
[2017-03-12 14:52] LABS: BASO # 0.1 K/uL (0.0-0.2); BASO % 0.7 % (0.0-2.0); EOS # 0.1 K/uL (0.0-0.7); EOS % 0.5 % (0.0-4.0); HEMATOCRIT 25.8 % (34.0-47.0); LYMPH # 1.5 K/uL (1.0-4.3); LYMPH % 8.5 % (20.0-40.0); MEAN CELL VOLUME 86.5 fl (81.0-99.0); MEAN CORPUSCULAR HEMOGLOBIN 28.6 pg (27.0-31.0); MONO # 1.8 K/uL (0.0-0.8); MONO % 10.2 % (0.0-10.0); NEUT % 80.1 % (50.0-75.0); PLATELET COUNT 339 K/uL (130-400); WHITE BLOOD COUNT 17.4 K/uL (4.8-10.8)
--- NOTE | 2017-03-12 14:59 | RAD ---
HISTORY: sepsis COMPARISON: 02/26/2017 FINDINGS: LUNGS: The lungs are well inflated and clear. PLEURA: No significant pleural effusion identified, no pneumothorax apparent. CARDIOVASCULAR: Normal. OSSEOUS STRUCTURES: No significant abnormalities. VISUALIZED UPPER ABDOMEN: Normal. OTHER FINDINGS: None. IMPRESSION: No active pulmonary disease.
[2017-03-12 15:02] LABS: ALB/GLOB RATIO 0.8 (1.0-2.1); BILIRUBIN,TOTAL 0.8 mg/dl (0.2-1.3); CALCIUM 9.7 mg/dL (8.4-10.2); TOTAL PROTEIN 8.1 G/DL (6.3-8.2)
[2017-03-12 15:05] LABS: PARTIAL THROMBOPLASTIN TIME 32.6 Seconds (25.6-37.1)
[2017-03-12 15:34] LABS: NEUTROPHIL 82 % (42-75); TOTAL CELLS COUNTED 100
[2017-03-12 15:35] LABS: LARGE PLATELETS PRESENT
[2017-03-12] MEDS ORDERED: Meropenem 1 GM in Sodium Chloride 0.9% 100 ML IVPB ONE (15:35)
--- NOTE | 2017-03-12 15:42 | ED PDOC ---
Hyperglycemia/Hypoglycemia Time Seen by Provider: 03/12/17 14:25 Chief Complaint (Nursing): Weakness/Neurological Deficit Chief Complaint (Provider): Weakness History Per: Patient History/Exam Limitations: no limitations Onset/Duration Of Symptoms: Days (x 3 weeks) Current Symptoms Are (Timing): Still Present Current Diabetic Medications: Insulin Associated Infectious Symptoms: Other (Chronic right foot wound) : The patient does not have any of the infectious symptoms listed except for those marked. Additional Complaint(s): Cora is a 56 y/o female who presents to the ED complaining of dizziness, generalized weakness, fatigue and discharge from right foot wound, ongoing for 3 weeks. Admitted earlier in February for a wound infection and sepsis. Patient reports the wound has not been improving since then. Denies fever, syncope, falls, chest pain, abdominal pain, vomiting, and diarrhea. States she takes her insulin and all other medications as instructed. Her blood sugar was low in the field today and after eating some cookies, was 85 mg/dl. Of note, patient has chronic wound of right foot and sees [employer] Manager Dr. Kaur for this. Patient also complaining of right lower leg swelling for 2 weeks. Was scheduled for a Doppler ultrasound but did not make it to that today. PMD: Dr. Pavel Willoughby Past Medical History Reviewed: Historical Data, Nursing Documentation, Vital Signs Vital Signs: Last Vital Signs Temp Pulse 77 03/12/17 14:18 Resp 16 03/12/17 14:18 BP 88/48 L 03/12/17 14:18 Pulse Ox 100 03/12/17 14:18 - Medical History PMH: Anemia (Iron-deficient), Anxiety, Asthma, Back Problems, CHF, Depression, Diabetes (type II), GERD, HTN, Hypercholesterolemia, Chronic Pain Denies: HIV, Chronic Kidney Disease, Seizures, Sexually Transmitted Disease - Surgical History Surgical History: Appendectomy, Carotid Endarterectomy, Cholecystectomy, C- Section ( x 3) - Family History Family History: States: Unknown Family Hx - Home Medications Home Medications: Ambulatory Orders Medication Instructions Recorded Pravastatin Sodium [Pravachol] 40 mg PO HS 02/25/16 Oxycodone HCl/Acetaminophen 1 tab PO Q6H PRN #0 tablet 05/29/16 [Percocet 10-325 mg Tablet] Aspirin [Ecotrin] 81 mg PO DAILY #30 01/19/17 Clopidogrel [Plavix] 75 mg PO DAILY #30 tab 01/19/17 Cefuroxime Axetil [Cefuroxime] 500 mg PO BID #28 tablet 03/03/17 Ferrous Sulfate 325 mg PO BID #60 tablet 03/03/17 Insulin Aspart, Recombinant 20 unit SC TID #0 03/03/17 [Novolog] Insulin Detemir [Levemir] 40 units SC HS vial 03/03/17 Pregabalin [Lyrica] 100 mg PO TID #90 cap 03/03/17 SITagliptin [Januvia] 100 mg PO DAILY #30 tab 03/03/17 Silver [Silvasorb Antimicrobial 1 applic TP DAILY #1 gel 03/03/17 Wound Gel] Ciprofloxacin [Cipro] 500 mg PO BID 03/12/17 Docusate [Colace] 100 mg PO BID PRN 03/12/17 Zolpidem [Ambien] 10 mg PO HS PRN 03/12/17 - Allergies Allergies/Adverse Reactions: Allergies Allergy/AdvReac Type Severity Reaction Status Date / Time vancomycin AdvReac ITCHING Verified 05/22/16 13:09 Review of Systems ROS Statement: Except As Marked, All Systems Reviewed And Found Negative Constitutional: Negative for: Fever Cardiovascular: Negative for: Chest Pain Gastrointestinal: Negative for: Vomiting, Abdominal Pain, Diarrhea Musculoskeletal: Positive for: Foot Pain (Right foot pain, lower leg swelling, and discharge from chronic foot wound) Neurological: Positive for: Weakness (and fatigue), Dizziness. Negative for: Other (falls, syncope) Physical Exam - Reviewed Nursing Documentation Reviewed: Yes Vital Signs Reviewed: Yes - Physical Exam Appears: Positive for: No Acute Distress (but ill appearing) Skin: Positive for: Warm, Dry (Pale skin) Eye Exam: Positive for: Other (Pale conjunctiva) Neck: Positive for: Normal, Painless ROM Cardiovascular/Chest: Positive for: Regular Rate, Rhythm (mildly tachycardic) Respiratory: Positive for: Normal Breath Sounds. Negative for: Accessory Muscle Use, Respiratory Distress Gastrointestinal/Abdominal: Positive for: Normal Exam, Soft. Negative for: Tenderness, Distended Back: Positive for: Normal Inspection. Negative for: Vertebral Tenderness Extremity: Positive for: Deformity (Discharge from chronic wound on bottom of right foot), Swelling (of right lower leg). Negative for: Tenderness (and erythema) Neurologic/Psych: Positive for: Alert, Oriented - Laboratory Results Result Diagrams: 03/13/17 09:20 03/13/17 06:30 - ECG O2 Sat by Pulse Oximetry: 100 (RA) Pulse Ox Interpretation: Normal - Other Rad Chest X-Ray X-Ray: Read By Radiologist X-Ray Interpretation: IMPRESSION: No active pulmonary disease. Medical Decision Making Medical Decision Making: Initial Impression: Hypoglycemia and Hypotension Differentials include severe anemia, sepsis due to wound infection, dehydration , and hypoglycemia syndrome. Need to rule out DVT of the right leg. Time: 14:26 Initial Plan: --CMP --CBC --PTT --Prothrombin time --CXR --Urinalysis --VBG --NS IV 1000 ml at 1000 mls/hr --Blood, urine, and wound cultures ordered --Pending X-Ray Right Foot AP LAT --Paged Podiatry for consult --Pending US Duplex lower extremity X-Ray Right Foot AP LAT: Findings: The current study reveals diffuse soft tissue swelling with large plantar surface ulcer at midfoot level. Subcutaneous emphysema is seen within the plantar dorsal soft tissues as well as within the posterior soft tissues of the inferior calf. There is significant diffuse soft tissue swelling consistent with cellulitis. Questionable old LisFranc fracture deformities however there appears be further fragmentation changes of bones of the midfoot. . . Note that the possibility of osteomyelitis or developing Charcot joint cannot be excluded. . Recommend followup MRI. Postoperative changes with resection of most of the 3rd digit at the level of the proximal margin of the proximal phalanx. Deformity of the 2nd and 3rd metatarsals unchanged. Apparent postoperative changes 1st metatarsal with mild hallux valgus deformity DJD 1st MTP joint. Impression: Findings consistent with significant soft tissue swelling of right foot extending to the level of the lower calf with associated extensive subcutaneous emphysema. Questionable Lisfranc fracture deformities however there appears be some further fragmentation changes of the inferior margins of the bones of the midfoot. The possibility of osteomyelitis and/or Charcot joint not excluded recommend followup MRI. Findings discussed with Dr. Pollack at 3:53 p.m. with written down and read back verification. Time: 15:33 --Discussed case with Podiatry. Patient will require surgical debridement. --Patient to be admitted for right foot wound infection and gas gangrene, under service of Dr. Willoughby --Discussed case with cotton broker Dr. Ruelas, who states there is no need for admission to ICU at this time. Disposition will be decided after surgery, while patient is in PAC-U. Time: 15:45 --Also discussed case with Dr. Verde, Infectious Disease on-call, who recommended Zosyn and Flagyl for this patient Time: 15:49 --Patient started on Zosyn and Flagyl IV Time: 17:01 US Duplex Lower Extremity: FINDINGS: COMMON FEMORAL VEIN: Unremarkable. SUPERFICIAL FEMORAL VEIN: Unremarkable. POPLITEAL VEIN: Unremarkable. POSTERIOR TIBIAL VEIN: Unremarkable. OTHER FINDINGS: None. IMPRESSION: No evidence of deep venous thrombosis in the right lower extremity. Scribe Attestation: Documented by Betty Caro, acting as a scribe for Jj Bhardwaj MD Provider Scribe Attestation: All medical record entries made by the Scribe were at my direction and personally dictated by me. I have reviewed the chart and agree that the record accurately reflects my personal performance of the history, physical exam, medical decision making, and the department course for this patient. I have also personally directed, reviewed, and agree with the discharge instructions and disposition. Disposition - Clinical Impression Clinical Impression: Wound infection, Osteomyelitis of foot, Gangrene of foot, Sepsis - Patient ED Disposition Is Patient to be Admitted: Yes Discussed With : Pavel Willoughby Doctor Will See Patient In The: Hospital Counseled Patient/Family Regarding: Studies Performed, Diagnosis - Disposition Disposition Time: 15:00 Condition: FAIR - Pt Status Changed To: Hospital Disposition Of: Inpatient - Admit Certification Admit to Inpatient:: After my assessment, the patient will require hospitalization for at least two midnights. This is because of the severity of symptoms shown, intensity of services needed, and/or the medical risk in this patient being treated as an outpatient. - POA Present On Arrival: Pressure Ulcer (right foot)
[2017-03-12] MEDS ORDERED: Piperacillin/Tazobact 3.375 GM in Sodium Chloride 0.9% 100 ML IVPB STA (15:49)
[2017-03-12] MEDS ORDERED: metroNIDAZOLE 500mg/100ml NS 100 ML IVPB STA (15:50)
--- NOTE | 2017-03-12 15:55 | RAD ---
Right foot dated 03/12/2017. History: Foot ulcer. Three views of the right foot performed and with prior study dated 06/08/2017. Findings: The current study reveals diffuse soft tissue swelling with large plantar surface ulcer at midfoot level. Subcutaneous emphysema is seen within the plantar dorsal soft tissues as well as within the posterior soft tissues of the inferior calf. There is significant diffuse soft tissue swelling consistent with cellulitis. Questionable old LisFranc fracture deformities however there appears be further fragmentation changes of bones of the midfoot. . . Note that the possibility of osteomyelitis or developing Charcot joint cannot be excluded. . Recommend followup MRI. Postoperative changes with resection of most of the 3rd digit at the level of the proximal margin of the proximal phalanx. Deformity of the 2nd and 3rd metatarsals unchanged. Apparent postoperative changes 1st metatarsal with mild hallux valgus deformity DJD 1st MTP joint. Impression: Findings consistent with significant soft tissue swelling of right foot extending to the level of the lower calf with associated extensive subcutaneous emphysema. Questionable Lisfranc fracture deformities however there appears be some further fragmentation changes of the inferior margins of the bones of the midfoot. The possibility of osteomyelitis and/or Charcot joint not excluded recommend followup MRI. Findings discussed with Dr. Pollack at 3:53 p.m. with written down and read back verification.
[2017-03-12] MEDS ORDERED: Piperacillin/Tazobact 3.375 gm Inj IVPB ONE (16:00)
--- NOTE | 2017-03-12 17:03 | US ---
PROCEDURE: Right lower extremity venous duplex Doppler. HISTORY: right foot wound COMPARISON: Bilateral lower extremity ultrasound performed 02/26/17 TECHNIQUE: Common femoral, superficial femoral, popliteal and posterior tibial veins were evaluated. Flow was assessed with color Doppler, compressibility, assessment of phasic flow and augmentation response. FINDINGS: COMMON FEMORAL VEIN: Unremarkable. SUPERFICIAL FEMORAL VEIN: Unremarkable. POPLITEAL VEIN: Unremarkable. POSTERIOR TIBIAL VEIN: Unremarkable. OTHER FINDINGS: None. IMPRESSION: No evidence of deep venous thrombosis in the right lower extremity.
--- NOTE | 2017-03-12 17:46 | CP.PCM.CON ---
History of Present Illness - History of Present Illness History of Present Illness: Patient is a 56 year old female familiar to our service with PMH of DM type 2, Asthma, HTN, Depression. Patient presents to ED today complaining of painful right calf and foot. Patient states that she has been feeling very ill over the last day with chills. She also states that an open plantar ulcer present on her right foot has been increasing in pain significantly over the last 24 hours. Patient states that she saw her hand worker, Dr. Kaur yesterday and was instructed to get a venous duplex scan to rule out DVT but she did not feel well enough to have the procedure done today and instead came into the ED. Patient states that the last time she ate was roughly 1.5 hours ago. She states that she took her Plavix this morning and takes a daily 81 mg Aspirin. Patient denies any further pedal complaints at this time. Patient denies N/V/F/CP/SOB Review of Systems - Review of Systems Review of Systems: ROS unremarkable outside of HPI Past Patient History - Infectious Disease Hx of Infectious Diseases: None - Past Medical History & Family History Past Medical History?: Yes - Past Social History Smoking Status: Heavy Smoker > 10 Cigarettes Daily - CARDIAC Hx Congestive Heart Failure: Yes Hx Hypercholesterolemia: Yes Hx Hypertension: Yes - PULMONARY Hx Asthma: Yes - NEUROLOGICAL Hx Seizures: No - HEENT Other/Comment: uses eyeglasses - RENAL Hx Chronic Kidney Disease: No - ENDOCRINE/METABOLIC Hx Diabetes Mellitus Type 2: Yes - HEMATOLOGICAL/ONCOLOGICAL Hx Anemia: Yes (Iron-deficient) Hx Human Immunodeficiency Virus (HIV): No - INTEGUMENTARY Other/Comment: R plantar foot non-healing diabetic foot ulcer - MUSCULOSKELETAL/RHEUMATOLOGICAL Hx Musculoskeletal Disorders: Yes - GASTROINTESTINAL Hx Gastrointestinal Disorders: No - GENITOURINARY/GYNECOLOGICAL Hx Sexually Transmitted Disorders: No - PSYCHIATRIC Hx Anxiety: Yes Hx Depression: Yes - SURGICAL HISTORY Hx Appendectomy: Yes Hx Carotid Endarterectomy: Yes Hx Cholecystectomy: Yes - ANESTHESIA Hx Anesthesia: Yes Hx Anesthesia Reactions: No Hx Malignant Hyperthermia: No Meds Allergies/Adverse Reactions: Allergies Allergy/AdvReac Type Severity Reaction Status Date / Time vancomycin AdvReac ITCHING Verified 05/22/16 13:09 Physical Exam - Constitutional Appears: In Acute Distress - Extremities Exam Additional comments: LE focused exam: Vasc: DP and PT 1/4 bilaterally, EQUIPMENT OPERATION INSTRUCTOR >3 seconds to the digits bilaterally, right leg edema, temperature is warm to touch at the R calf and R ankle, temperature is cool at R foot, L LE temperature cool to cool WNL Ortho: moderate pain with palpation of the R calf and mild pain with palpation to the R plantar lateral ulcer Neuro: sensation is grossly diminished bilaterally Derm: Right foot ulceration measuring approximately 3.5 x 2.3 x 2.5 cm. Wound base is 80% granular and 20% fibrotic. Wound edges are hyperkeratotic and intact with maceration noted. Minimal erythema noted to right anterior luna. No erythema noted to periwound area, no purulence expressed, no malodor, and no fluctuance. Tunneling from plantar foot in dorsal direction roughly 2.5 cm noted. Probe to bone negative. No purulence expressed from tunneling - Neurological Exam Neurological exam: Altered - Psychiatric Exam Psychiatric exam: Agitated, Normal Affect Results - Vital Signs Recent Vital Signs: Last Vital Signs Temp 98.3 F 03/12/17 16:06 Pulse 73 03/12/17 16:06 Resp 16 03/12/17 14:18 BP 110/56 L 03/12/17 16:06 Pulse Ox 100 03/12/17 17:13 - Labs Result Diagrams: 03/12/17 14:40 03/12/17 14:40 Assessment & Plan - Assessment and Plan (Free Text) Assessment: 56 year old female with gas gangrene to right leg and foot seen in ED secondary to diabetic foot ulceration of right foot Plan: Patient seen and evaluated at bedside Charts, labs and vitals reviewed; afebrile, WBC 17.4 Xray (Foot, Tib/Fib): Diffuse soft tissue emphysema noted to right foot to level of midcalf RLE negative for DVT Per ID patient given stat dose of Zosyn and Flagyl PT 14.5, INR 1.4, PTT 32.6 Chest Xray, blood cx, urine cx ordered EKG last taken 02/26/[address] Willoughby patient is medically cleared to undergo incision and drainage of right leg for removal of soft tissue gas Patient will undergo surgical incision and drainage with Dr. Kaur at 8:30 this evening Podiatry will continue to follow while in house - Date & Time Date: 03/12/17 Time: 17:59
[2017-03-12] MEDS ORDERED: Sodium Chloride 0.9% 1,000 ML IV SCH (18:15)
--- NOTE | 2017-03-12 19:54 | CP.PCM.PN ---
Subjective - Date & Time of Evaluation Date of Evaluation: 03/12/17 Time of Evaluation: 19:50 - Subjective Subjective: I D NOTE PATIENT GOING FOR SURGICAL PROCEDURE REVIEWED ALL CULTURES FOR PRESENT HAVE STARTED MEROPENEM AND CLINDAMYCIN Objective - Vital Signs/Intake and Output Vital Signs (last 24 hours): Temp Pulse Resp BP Pulse Ox 98.3 F 73 16 110/56 L 100 03/12/17 16:06 03/12/17 16:06 03/12/17 14:18 03/12/17 16:06 03/12/17 17:13 - Medications Medications: Current Medications Clindamycin Phosphate 600 mg/ (Sodium Chloride) 104 mls @ 1,155.556 mls/hr IVPB ONCE ONE Stop: 03/12/17 20:35 Sodium Chloride (Sodium Chloride 0.9%) 1,000 mls @ 1,000 mls/hr IV .Q1H MARII Stop: 03/13/17 18:09 Meropenem 500 mg/ Sodium (Chloride) 100 mls @ 100 mls/hr IVPB Q12 [facility]II Clindamycin Phosphate 600 mg/ (Sodium Chloride) 54 mls @ 54 mls/hr IVPB Q12 MARII - Labs Labs: PT 14.5 Seconds (9.8-13.1) H 03/12/17 14:40 INR 1.4 (0.9-1.2) H 03/12/17 14:40 APTT 32.6 Seconds (25.6-37.1) 03/12/17 14:40
[2017-03-12] MEDS ORDERED: Propofol 10 mg/ml Inj (20 ML) ONE (20:02)
[2017-03-12] MEDS ORDERED: Lidocaine 1% Inj (20ml) ONE (20:02)
[2017-03-12] MEDS ORDERED: Bupivacaine 0.5% Inj(30mL) ONE (20:02)
[2017-03-12] MEDS ORDERED: Midazolam 2 MG/2 ML VIAL ONE (20:03)
[2017-03-12] MEDS ORDERED: Clindamycin 600 MG in Sodium Chloride 0.9% 100 ML IVPB ONE (20:30)
[2017-03-12] MEDS ORDERED: Meropenem 500 mg Inj IVPB ONE (20:40)
[2017-03-12] MEDS ORDERED: Lactated Ringer's 500 ML IV ONE (22:00)
[2017-03-12] MEDS: Clindamycin 600 MG in Sodium Chloride 0.9% 100 ML IVPB SCH (22:08)
[2017-03-12] MEDS: Meropenem 500 MG in Sodium Chloride 0.9% 100 ML IVPB SCH (22:08)
[2017-03-12] MEDS ORDERED: Lactated Ringer's 1,000 ML IV ONE (22:16)
--- NOTE | 2017-03-12 22:24 | PCM.SURG1 ---
Surgeon's Initial Post Op Note - Surgeon's Notes Surgeon: Dr. Kaur Sticker On: Dr. Vang PGY-1, Dr. Regan PGY-2 Type of Anesthesia: General LMA Anesthesia Administered By: Dr. Lanier Pre-Operative Diagnosis: right foot and leg gas gangrene Operative Findings: see dictation Post-Operative Diagnosis: right foot and leg gas gangrene Operation Performed: right foot / leg incision and drainage Specimen/Specimens Removed: bone, soft tissue Estimated Blood Loss: EBL {In ML}: 60 Blood Products Given: N/A Drains Used: No Drains Post-Op Condition: Good Date of Surgery/Procedure: 03/12/17 Time of Surgery/Procedure: 22:24
[2017-03-12 22:26] LABS: URINE BILIRUBIN NEGATIVE (NEGATIVE); URINE BLOOD SMALL (NEGATIVE); URINE COLOR YELLOW (YELLOW); URINE GLUCOSE (UA) >=500 mg/dL (Normal); URINE KETONE NEGATIVE (NEGATIVE); URINE LEUKOCYTE ESTERASE NEG Leu/uL (Negative); URINE PROTEIN 30 mg/dL (NEGATIVE); URINE UROBILINOGEN 0.2-1.0 mg/dL (0.2-1.0); WBC URINE 2 /hpf (0-5)
[2017-03-12 22:31] LABS: RBC URINE 5 /hpf (0-3)
[2017-03-12] MEDS ORDERED: HYDROmorphone 0.5 mg/0.5 ml ISec ONE (22:44)
[2017-03-12] MEDS: HYDROmorphone 0.5 mg/0.5 ml ISec IVP PRN ×4 (22:45→23:34)
[2017-03-12] MEDS ORDERED: Dextrose 50% SYRINGE Inj (50 ml) IVP ONE ×2 (22:51→23:43)
[2017-03-13 07:13] LABS: HEMATOCRIT 22.3 % (34.0-47.0); MEAN CELL VOLUME 87.4 fl (81.0-99.0); MEAN CORPUSCULAR HGB CONC 33.2 g/dL (33.0-37.0); RED CELL DISTRIBUTION WIDTH 16.1 % (11.5-14.5); WHITE BLOOD COUNT 10.2 K/uL (4.8-10.8)
[2017-03-13 07:30] LABS: BLOOD UREA NITROGEN 37 mg/dl (7-17); CALCIUM 8.5 mg/dL (8.4-10.2); CARBON DIOXIDE 23 mmol/L (22-30); CHLORIDE 103 mmol/L (98-107); GFR AFRICAN-AMERICAN > 60; GLUCOSE,RANDOM 75 mg/dL (65-105); POTASSIUM 3.4 MMOL/L (3.6-5.0); SODIUM 133 mmol/l (132-148)
[2017-03-13] MEDS ORDERED: Potassium Chloride 20 mEq ER Tab PO ONE (08:10)
[2017-03-13] MEDS: Clindamycin 600 MG in Sodium Chloride 0.9% 100 ML IVPB SCH ×2 (08:27→21:17)
[2017-03-13] MEDS: Oxycodone/Acetaminophen 5/325 mg Tab PO PRN ×3 (08:36→20:27)
[2017-03-13 09:37] LABS: HEMATOCRIT 21.4 % (34.0-47.0); MEAN CELL VOLUME 87.2 fl (81.0-99.0); MEAN CORPUSCULAR HEMOGLOBIN 29.1 pg (27.0-31.0); MEAN CORPUSCULAR HGB CONC 33.4 g/dL (33.0-37.0); RED CELL DISTRIBUTION WIDTH 15.9 % (11.5-14.5); WHITE BLOOD COUNT 9.8 K/uL (4.8-10.8)
--- NOTE | 2017-03-13 10:06 | RAD ---
Right tibia fibula dated 03/12/2017. History: Leg pain. AP and lateral views of the right tibia and fibula performed and compared with concurrent radiographs of the right foot. Current study re- demonstrates diffuse soft tissue swelling infiltration and subcutaneous air within the posterior and to a lesser degree at anterior soft tissues of the distal calf consistent with cellulitis. Questionable mild periosteal reaction along the mid and distal fibular cortex; rule out osteomyelitis. Followup MRI recommended No evidence of acute displaced fracture nor dislocation Impression: Findings consistent with diffuse cellulitis associated with subcutaneous emphysema. Rule out early osteomyelitis involving the fibular cortex.
--- NOTE | 2017-03-13 10:07 | RAD ---
HISTORY: Status post foot and like surgery COMPARISON: Comparison made with radiographs right foot 03/12/2017 TECHNIQUE: AP and lateral views of the right tibia and fibula performed. FINDINGS: BONES: The current study reveals no evidence of acute displaced fracture nor dislocation. The osseous structures appear intact. There may be some mild periosteal reaction along the mid to distal medial margin of the fibular cortex. Rule out osteomyelitis. Diffuse soft tissue swelling. Additionally, the soft tissues exhibit mottled appearance. Previously noted subcutaneous air within the posterior and to a lesser degree anterior lower soft tissues of the calf has undergone some resorption. Collective findings are consistent with cellulitis. Consider followup up MRI. Impression: Diffuse cellulitis with what probably represents interval partial resolution previously noted subcutaneous air. . Questionable periosteal reaction along the medial margin of the fibular cortex. Osteomyelitis cannot be completely excluded. Recommend followup MRI.
--- NOTE | 2017-03-13 10:13 | RAD ---
PROCEDURE: Right foot dated 03/13/2017 HISTORY: Status post right foot and leg surgery. COMPARISON: Comparison made with prior study 03/12/2017 FINDINGS: Apparent debridement of previously noted plantar surface skin and subcutaneous ulcer with presumed in situ packing material. Diffuse soft tissue swelling increased from prior study. . The osseous structures unchanged from prior study. . . Previously noted subcutaneous air has diminished possibly. Impression: Postoperative changes likely of representing the debridement previously noted plantar surface skin and subcutaneous ulcer with presumed in situ packing material within the defect. Diffuse soft tissue swelling increased from prior study. No other changes.
[2017-03-13] MEDS: Meropenem 500 MG in Sodium Chloride 0.9% 100 ML IVPB SCH ×2 (10:49→20:07)
[2017-03-13] MEDS: Insulin Lispro (humaLOG) 100 Units/ml Inj SC SCH ×3 (11:30→21:21)
--- NOTE | 2017-03-13 13:53 | CP.PCM.HP ---
<Kiera Serrano - Last Filed: 03/13/17 19:52> History of Present Illness - History of Present Illness History of Present Illness: 56 year old female with a past medical history of diabetes (recently started on insulin), chronic wound to her right lower extremity, obesity, and CHF who presented to the ED yesterday complaining of dizziness, generalized weakness, fatigue and discharge from right foot wound, ongoing for 3 weeks. Admitted earlier in February for a wound infection and sepsis. Patient reports the wound has not been improving since then. Denies fever, syncope, falls, chest pain, abdominal pain, vomiting, and diarrhea. States she takes her insulin and all other medications as instructed. Patient sees Math Instructor Dr. Kaur for chronic wound of right foot. Patient also complaining of right lower leg swelling for 2 weeks. Was scheduled for a Doppler ultrasound but did not make it to that yesterday. Present on Admission - Present on Admission Any Indicators Present on Admission: No History of DVT/PE: No History of Uncontrolled Diabetes: No Urinary Catheter: No Decubitus Ulcer Present: No Review of Systems - Review of Systems All systems: reviewed and no additional remarkable complaints except (as per HPI ) Past Patient History - Infectious Disease Hx of Infectious Diseases: None - Past Medical History & Family History Past Medical History?: Yes - Past Social History Smoking Status: Heavy Smoker > 10 Cigarettes Daily - CARDIAC Hx Hypercholesterolemia: Yes Hx Hypertension: Yes - PULMONARY Hx Asthma: Yes - NEUROLOGICAL Hx Neurological Disorder: No - HEENT Other/Comment: uses eyeglasses - RENAL Hx Chronic Kidney Disease: No - ENDOCRINE/METABOLIC Hx Diabetes Mellitus Type 2: Yes - HEMATOLOGICAL/ONCOLOGICAL Hx Blood Disorders: No - INTEGUMENTARY Hx Dermatological Problems: Yes - MUSCULOSKELETAL/RHEUMATOLOGICAL Hx Musculoskeletal Disorders: Yes - GASTROINTESTINAL Hx Gastrointestinal Disorders: No - GENITOURINARY/GYNECOLOGICAL Hx Genitourinary Disorders: No - PSYCHIATRIC Hx Anxiety: Yes Hx Depression: Yes Hx Substance Use: No - SURGICAL HISTORY Hx Surgeries: Yes Hx Appendectomy: Yes Hx Carotid Endarterectomy: Yes Hx Cholecystectomy: Yes Other/Comment: I@D rt. foot - ANESTHESIA Hx Anesthesia: Yes Hx Anesthesia Reactions: No Hx Malignant Hyperthermia: No Meds Allergies/Adverse Reactions: Allergies Allergy/AdvReac Type Severity Reaction Status Date / Time vancomycin AdvReac ITCHING Verified 05/22/16 13:09 Physical Exam - Additional Findings Additional findings: Constitutional Appears: No Acute Distress - ENT Exam ENT Exam: Mucous Membranes Dry - Respiratory Exam Respiratory Exam: Clear to Auscultation Bilateral, NORMAL BREATHING PATTERN - Cardiovascular Exam Cardiovascular Exam: REGULAR RHYTHM, +S1, +S2 - GI/Abdominal Exam GI & Abdominal Exam: Normal Bowel Sounds, Soft. absent: Distended, Firm, Guarding, Rigid, Tenderness - Extremities Exam Extremities exam: Negative for: calf tenderness Additional comments: - Neurological Exam Neurological exam: Altered - Skin Skin Exam: Dry, Intact, Pallor Results - Vital Signs Recent Vital Signs: Last Vital Signs Temp 98.9 F 03/13/17 03:27 Pulse 70 03/13/17 07:30 Resp 18 03/13/17 03:27 BP 112/54 L 03/13/17 07:30 Pulse Ox 100 03/13/17 03:27 - Labs Result Diagrams: 03/13/17 09:20 03/13/17 06:30 Labs: Laboratory Results - last 24 hr 03/12/17 03/12/17 03/12/17 16:05 22:16 22:48 WBC RBC Hgb Hct MCV MCH MCHC RDW Plt Count ESR Sodium Potassium Chloride Carbon Dioxide Anion Gap BUN Creatinine Est GFR ( Amer) Est GFR (Non-Af Amer) POC Glucose (mg/dL) 86 53 L Random Glucose Lactic Acid Calcium Urine Color Yellow Urine Clarity Slighty-cloudy Urine pH 6.0 Ur Specific [place] 1.010 Urine Protein 30 Urine Glucose (UA) >=500 Urine Ketones Negative Urine Blood Small Urine Nitrate Negative Urine Bilirubin Negative Urine Urobilinogen 0.2-1.0 Ur Leukocyte Esterase Neg Urine RBC (Auto) 5 H Urine Microscopic WBC 2 Ur Squamous Epith Cells 1 Blood Type Antibody Screen Crossmatch BBK History Checked 03/12/17 03/13/17 03/13/17 23:37 00:22 05:43 WBC RBC Hgb Hct MCV MCH MCHC RDW Plt Count ESR Sodium Potassium Chloride Carbon Dioxide Anion Gap BUN Creatinine Est GFR ( Amer) Est GFR (Non-Af Amer) POC Glucose (mg/dL) 73 100 102 Random Glucose Lactic Acid Calcium Urine Color Urine Clarity Urine pH Ur Specific [place] Urine Protein Urine Glucose (UA) Urine Ketones Urine Blood Urine Nitrate Urine Bilirubin Urine Urobilinogen Ur Leukocyte Esterase Urine RBC (Auto) Urine Microscopic WBC Ur Squamous Epith Cells Blood Type Antibody Screen Crossmatch BBK History Checked 03/13/17 03/13/17 03/13/17 06:30 06:30 06:30 WBC 10.2 RBC 2.55 L Hgb 7.4 L Hct 22.3 L MCV 87.4 MCH 29.0 MCHC 33.2 RDW 16.1 H Plt Count 252 ESR Sodium 133 Potassium 3.4 L Chloride 103 Carbon Dioxide 23 Anion Gap 10 BUN 37 H Creatinine 1.0 Est GFR ( Amer) > 60 Est GFR (Non-Af Amer) 57 POC Glucose (mg/dL) Random Glucose 75 Lactic Acid 1.1 Calcium 8.5 Urine Color Urine Clarity Urine pH Ur Specific [place] Urine Protein Urine Glucose (UA) Urine Ketones Urine Blood Urine Nitrate Urine Bilirubin Urine Urobilinogen Ur Leukocyte Esterase Urine RBC (Auto) Urine Microscopic WBC Ur Squamous Epith Cells Blood Type Antibody Screen Crossmatch BBK History Checked 03/13/17 03/13/17 03/13/17 09:20 09:20 10:38 WBC 9.8 RBC 2.45 L Hgb 7.1 L Hct 21.4 L MCV 87.2 MCH 29.1 MCHC 33.4 RDW 15.9 H Plt Count 243 ESR > 120 H Sodium Potassium Chloride Carbon Dioxide Anion Gap BUN Creatinine Est GFR ( Amer) Est GFR (Non-Af Amer) POC Glucose (mg/dL) Random Glucose Lactic Acid Calcium Urine Color Urine Clarity Urine pH Ur Specific [place] Urine Protein Urine Glucose (UA) Urine Ketones Urine Blood Urine Nitrate Urine Bilirubin Urine Urobilinogen Ur Leukocyte Esterase Urine RBC (Auto) Urine Microscopic WBC Ur Squamous Epith Cells Blood Type A POSITIVE Antibody Screen Negative Crossmatch See Detail BBK History Checked Patient has bt Assessment & Plan - Assessment and Plan (Free Text) Plan: Right foot and leg gas gangrene s/p surgery POD#[address] Kaur c/w meropenen and Clindamycin as per ID recommendations c/w pain control c/w wound care by Podiatry team f/u Podiatry and ID rec Diabetes Mellitus ID type 2 uncontrolled, h/o no compliance with home meds c/w current management -c/w accucheck -Hypoglycemia protocol Anemia h/o anemia possible a combination of Iron deficiency and anemia of chronic diseases repeat CBC : 7.1/21.4 RDW elevated MCV WNL type and screen transfusion of PRBC Hypokalemia mild K+ 3.4 Potassium 40 meq PO once f/u BMP DVT prophylaxis SCDs for now - Date & Time Date: 03/13/17 Time: 09:50 <Pavel Willoughby - Last Filed: 03/14/17 10:20> Results - Vital Signs Recent Vital Signs: Last Vital Signs Temp 98.7 F 03/14/17 08:36 Pulse 79 03/14/17 08:36 Resp 20 03/14/17 08:36 BP 110/61 03/14/17 08:36 Pulse Ox 98 03/14/17 08:36 - Labs Result Diagrams: 03/14/17 05:51 03/13/17 06:30 Labs: Laboratory Results - last 24 hr 03/12/17 03/13/17 03/13/17 20:12 09:20 10:38 WBC RBC Hgb Hct MCV MCH MCHC RDW Plt Count ESR > 120 H POC Glucose (mg/dL) Procalcitonin 0.61 H Blood Type A POSITIVE Antibody Screen Negative Crossmatch See Detail BBK History Checked Patient has bt 03/13/17 03/13/17 03/13/17 11:54 17:09 18:36 WBC RBC Hgb Hct MCV MCH MCHC RDW Plt Count ESR POC Glucose (mg/dL) 87 253 H Procalcitonin Blood Type Antibody Screen Crossmatch See Detail BBK History Checked Patient has bt 03/13/17 03/14/17 03/14/17 21:03 05:30 05:51 WBC 8.2 RBC 2.77 L Hgb 7.9 L Hct 23.9 L MCV 86.3 MCH 28.6 MCHC 33.1 RDW 17.1 H Plt Count 222 ESR POC Glucose (mg/dL) 293 H 370 H Procalcitonin Blood Type Antibody Screen Crossmatch BBK History Checked 03/14/17 06:08 WBC RBC Hgb Hct MCV MCH MCHC RDW Plt Count ESR POC Glucose (mg/dL) 338 H Procalcitonin Blood Type Antibody Screen Crossmatch BBK History Checked Assessment & Plan - Assessment and Plan (Free Text) Plan: I was present during evaluation and discussed with DR Serrano re plans of care and tx. Pavel Willoughby M.D.
--- NOTE | 2017-03-13 13:57 | CP.PCM.PN ---
Subjective - Date & Time of Evaluation Date of Evaluation: 03/13/17 Time of Evaluation: 12:54 - Subjective Subjective: Patient is a 56 year old female familiar to our service with PMH of DM type 2, Asthma, HTN, Depression who is seen 1 day s/p right foot and leg incision and drainage for gas gangrene. Patient states that she is in severe pain today but states that she has more energy than yesterday and her chills have decreased. Patient denies any further pedal complaints at this time. Patient denies N/V/F/C /CP/SOB. Objective - Vital Signs/Intake and Output Vital Signs (last 24 hours): Temp Pulse Resp BP Pulse Ox 98.9 F 70 18 112/54 L 100 03/13/17 03:27 03/13/17 07:30 03/13/17 03:27 03/13/17 07:30 03/13/17 03:27 Intake and Output: 03/13/17 03/13/17 06:59 18:59 Intake Total 700 Balance 700 - Medications Medications: Current Medications Acetaminophen (Tylenol 325mg Tab) 650 mg PO Q4 PRN PRN Reason: Pain, Mild (1-3) Docusate Sodium (Colace) 100 mg PO BID [facility] Last Admin: 03/13/17 10:49 Dose: 100 mg Ferrous Sulfate (Feosol) 325 mg PO BID [facility] Last Admin: 03/13/17 10:49 Dose: 325 mg Hydromorphone HCl (Dilaudid) 1 mg IVP Q4 PRN PRN Reason: Pain (8-10) Last Admin: 03/13/17 05:58 Dose: 1 mg Sodium Chloride (Sodium Chloride 0.9%) 1,000 mls @ 1,000 mls/hr IV .Q1H [facility] Stop: 03/13/17 18:09 Meropenem 500 mg/ Sodium (Chloride) 100 mls @ 100 mls/hr IVPB Q12 [facility] Last Admin: 03/13/17 10:49 Dose: 100 mls/hr Clindamycin Phosphate 600 mg/ (Sodium Chloride) 104 mls @ 104 mls/hr IVPB Q12 [facility] Last Admin: 03/13/17 08:27 Dose: 104 mls/hr Lactated Ringer's (Lactated Ringer's) 1,000 mls @ 100 mls/hr IV .Q10H [facility] Insulin Human Lispro (Humalog) 0 units SC ACHS MARII PRN Reason: Protocol Oxycodone/Acetaminophen (Percocet 5/325 Mg Tab) 1 tab PO Q4 PRN PRN Reason: Pain, moderate (4-7) Stop: 03/15/17 22:26 Last Admin: 03/13/17 12:27 Dose: 1 tab Pravastatin Sodium (Pravachol) 40 mg PO HS MARII Pregabalin (Lyrica) 100 mg PO TID [facility] Last Admin: 03/13/17 12:28 Dose: 100 mg Sitagliptin Phosphate (Januvia) 100 mg PO DAILY [facility] Last Admin: 03/13/17 10:49 Dose: 100 mg - Labs Labs: 03/13/17 09:20 03/13/17 06:30 PT 14.5 Seconds (9.8-13.1) H 03/12/17 14:40 INR 1.4 (0.9-1.2) H 03/12/17 14:40 APTT 32.6 Seconds (25.6-37.1) 03/12/17 14:40 - Constitutional Appears: Well, No Acute Distress - Extremities Exam Additional comments: RLE focused exam: Dr Mendoza: SCHOOL ADMINISTRATOR >3 seconds to the digits bilaterally, right leg edema, skin temperature warm to warm from proximal to distal Ortho: Severe POP to incision sites and posterior leg consistent with surgical procedure from yesterday Neuro: sensation is grossly diminished bilaterally Derm: Open incision sites noted at dorsomedial and dorsolateral foot and at medial and lateral calf. Iodorom packing noted to all open incision sites at this time. No signs of necrosis noted to deep tissue. No malodor, purulent drainage or periwound erythema. Tunneling noted from plantar ulceration site to dorsolateral incision site MSK: Severe POP to all incision sites consistent with surgery performed - Neurological Exam Neurological Exam: Alert, Awake, Oriented x3 - Psychiatric Exam Psychiatric exam: Agitated, Depressed Assessment and Plan - Assessment and Plan (Free Text) Assessment: 56 year old female seen 1 day s/p right foot and leg incision and drainage secondary to gas gangrene Plan: Patient seen and evaluated at bedside Charts, labs adn vitals reviewed; afebrile, WBC 9.8 down from 17.4 at ED admission yesterday Dr. Murillo consulted Continue IV abx per ID Intra op wound cx pending Xrays 03/13 show residual gas in dorsal right foot and posterior right leg Patient to return to OR tomorrow for secondary I and D procedure Patient to be NPO after midnight tonight Podiatry will continue to follow while patient in house
[2017-03-13] MEDS ORDERED: Glucagon Recombinant 1 mg Inj IM PRN (14:11)
[2017-03-13] MEDS ORDERED: Dextrose 50% SYRINGE Inj (50 ml) IV PRN (14:11)
[2017-03-13] MEDS ORDERED: Oxycodone/Acetaminophen 5/325 mg Tab PO STA (15:54)
[2017-03-13] MEDS ORDERED: Cellulose Hemostat 2X3 Sheet TP STA ×2 (17:05→20:03)
[2017-03-13] MEDS ORDERED: Cellulose Hemostat 2X3 Sheet TP ONE ×2 (17:30→18:21)
[2017-03-13] MEDS ORDERED: Sodium Chloride 0.9% 1,000 ML IV SCH (18:45)
[2017-03-13] MEDS: Pravastatin Sodium 40 MG TAB PO SCH (21:18)
[2017-03-13] MEDS ORDERED: Insulin Detemir 100 Units/ml Inj SC SCH (22:00)
[2017-03-14 05:57] LABS: HEMATOCRIT 23.9 % (34.0-47.0); MEAN CELL VOLUME 86.3 fl (81.0-99.0); MEAN CORPUSCULAR HEMOGLOBIN 28.6 pg (27.0-31.0); MEAN CORPUSCULAR HGB CONC 33.1 g/dL (33.0-37.0); RED CELL DISTRIBUTION WIDTH 17.1 % (11.5-14.5); WHITE BLOOD COUNT 8.2 K/uL (4.8-10.8)
[2017-03-14] MEDS: Lactated Ringer's 1,000 ML IV SCH (06:28)
[2017-03-14] MEDS: Insulin Lispro (humaLOG) 100 Units/ml Inj SC SCH ×4 (07:06→21:20)
[2017-03-14] MEDS ORDERED: Sodium Chloride 0.9% 50 ML IV ONE (09:27)
[2017-03-14] MEDS ORDERED: Iodixanol 320 MG/ML 100 ML BOTTLE IV ONE (09:27)
[2017-03-14] MEDS: Meropenem 500 MG in Sodium Chloride 0.9% 100 ML IVPB SCH ×2 (10:09→20:11)
[2017-03-14] MEDS: Clindamycin 600 MG in Sodium Chloride 0.9% 100 ML IVPB SCH ×2 (10:09→21:20)
--- NOTE | 2017-03-14 10:23 | CP.PCM.PN ---
Subjective - Date & Time of Evaluation Date of Evaluation: 03/14/17 Time of Evaluation: 10:20 - Subjective Subjective: Patient has some pain in the right foot. Noted Hgb 7.9 after two units of BT. Has no chest pain or SOB Afebrile Noted bleeding on the right foot to have stopped. Objective - Vital Signs/Intake and Output Vital Signs (last 24 hours): Temp Pulse Resp BP Pulse Ox 98.7 F 79 20 110/61 98 03/14/17 08:36 03/14/17 08:36 03/14/17 08:36 03/14/17 08:36 03/14/17 08:36 - Medications Medications: Current Medications Acetaminophen (Tylenol 325mg Tab) 650 mg PO Q4 PRN PRN Reason: Pain, Mild (1-3) Dextrose (Dextrose 50% Inj) 0 ml IV STAT PRN; Protocol PRN Reason: Hyglycemia Protocol Dextrose (Glutose 15) 0 gm PO ONCE PRN; Protocol PRN Reason: Hypoglycemia Protocol Docusate Sodium (Colace) 100 mg PO BID [facility] Last Admin: 03/14/17 09:57 Dose: 100 mg Ferrous Sulfate (Feosol) 325 mg PO BID [facility] Last Admin: 03/14/17 09:58 Dose: 325 mg Glucagon (Glucagen Diagnostic Kit) 0 mg IM STAT PRN; Protocol PRN Reason: Hypoglycemia Protocol Hydromorphone HCl (Dilaudid) 1 mg IVP Q4 PRN PRN Reason: Pain (8-10) Last Admin: 03/14/17 10:14 Dose: 1 mg Meropenem 500 mg/ Sodium (Chloride) 100 mls @ 100 mls/hr IVPB Q12 [facility] Last Admin: 03/14/17 10:09 Dose: 100 mls/hr Clindamycin Phosphate 600 mg/ (Sodium Chloride) 104 mls @ 104 mls/hr IVPB Q12 [facility] Last Admin: 03/14/17 10:09 Dose: 104 mls/hr Lactated Ringer's (Lactated Ringer's) 1,000 mls @ 100 mls/hr IV .Q10H [facility] Last Admin: 03/14/17 06:28 Dose: 100 mls/hr Sodium Chloride (Sodium Chloride 0.9%) 1,000 mls @ 0 mls/hr IV .Q0M [facility] PRN Reason: As Directed Stop: 03/14/17 18:33 Insulin Human Lispro (Humalog) 0 units SC ACHS [facility] PRN Reason: Protocol Last Admin: 03/14/17 07:06 Dose: 4 u Oxycodone/Acetaminophen (Percocet 5/325 Mg Tab) 1 tab PO Q4 PRN PRN Reason: Pain, moderate (4-7) Stop: 03/15/17 22:26 Last Admin: 03/13/17 20:27 Dose: 1 tab Pravastatin Sodium (Pravachol) 40 mg PO HS [facility] Last Admin: 03/13/17 21:18 Dose: 40 mg Pregabalin (Lyrica) 100 mg PO TID [facility] Last Admin: 03/14/17 10:07 Dose: 100 mg Sitagliptin Phosphate (Januvia) 100 mg PO DAILY [facility] Last Admin: 03/14/17 09:58 Dose: 100 mg - Labs Labs: 03/14/17 05:51 03/13/17 06:30 PT 14.5 Seconds (9.8-13.1) H 03/12/17 14:40 INR 1.4 (0.9-1.2) H 03/12/17 14:40 APTT 32.6 Seconds (25.6-37.1) 03/12/17 14:40 - Eye Exam Eye Exam: Normal appearance - ENT Exam ENT Exam: Mucous Membranes Moist - Respiratory Exam Respiratory Exam: Clear to Ausculation Bilateral - Cardiovascular Exam Cardiovascular Exam: REGULAR RHYTHM - GI/Abdominal Exam GI & Abdominal Exam: Normal Bowel Sounds - Neurological Exam Neurological Exam: CN II-XII Intact, Oriented x3 - Psychiatric Exam Psychiatric exam: Normal Mood Assessment and Plan (1) Gangrene of foot Status: Acute (2) Bleeding Status: Acute (3) Uncontrolled type 2 diabetes mellitus Status: Chronic (4) Osteomyelitis of foot Status: Acute - Assessment and Plan (Free Text) Plan: Cont meds Cont tx Cont meds transfuse two more units of PRBC. check cbc in am.
[2017-03-14] MEDS ORDERED: Povidone Iodine Topical 10% Sol ONE (12:36)
--- NOTE | 2017-03-14 13:07 | CT ---
EXAM: CT Angiography Abdomen and Pelvis With Runoff to the Lower Extremities With Intravenous Contrast EXAM DATE/TIME: 03/14/2017 10:58 AM CLINICAL HISTORY: 56 years old, female; Pain; Foot pain; Bilateral; Additional info: R/O pad TECHNIQUE: Axial computed tomographic angiography images of the abdomen, pelvis and lower extremities with intravenous contrast using CT angiography protocol. All CT scans at this facility use one or more dose reduction techniques, viz.: automated exposure control; ma/kV adjustment per patient size (including targeted exams where dose is matched to indication; i.e. head); or iterative reconstruction technique. MIP reconstructed images were created and reviewed. Coronal and sagittal reformatted images were created and reviewed. CONTRAST: 100 mL of visipaque 320 administered intravenously. COMPARISON: CT - ABD PELVIS PO IV CONTRAST 09/04/2015 11:12:02 AM FINDINGS: Lower thorax: 2 cm right cardiophrenic angle node without change. VASCULATURE: Aorta: Moderate atherosclerotic calcifications of aorta and branch vessels. No abdominal aortic aneurysm. No dissection. Celiac trunk and mesenteric arteries: Calcifications at the origin of celiac and superior mesenteric artery limiting assessment. Remainder of vessels show no significant calcification or stenosis. Renal arteries: No acute findings. No occlusion or significant stenosis. Right iliac arteries: No acute findings. No occlusion or significant stenosis. Right femoral/popliteal arteries: Atherosclerotic calcifications right femoral artery. Segmental stenosis, greatest mid SFA, estimated at least 50%. Right calf/foot arteries: 3 vessel runoff below right knee. Short segment stenosis proximal anterior tibial artery estimated at 50%. Left iliac arteries: No acute findings. No occlusion or significant stenosis. Left femoral/popliteal arteries: Atherosclerotic calcifications left femoral artery, segmental stenosis mid and distal SFA, less than 50%. Left calf/foot arteries: 3 vessel runoff below the left knee, no significant stenosis. ABDOMEN: Liver: Unremarkable. No mass. Gallbladder and bile ducts: Cholecystectomy. No ductal dilation. Pancreas: Unremarkable. No ductal dilation. No mass. Spleen: Unremarkable. No splenomegaly. Adrenals: Unremarkable. No mass. Kidneys and ureters: Unremarkable. No hydronephrosis. No solid mass. Stomach and bowel: Increased fecal material throughout colon. Rectosigmoid fecal impaction. No obstruction. No mucosal thickening. Appendix: No findings to suggest acute appendicitis. PELVIS: Bladder: Unremarkable. No mass. Reproductive: Unremarkable as visualized. ABDOMEN, PELVIS and LOWER EXTREMITIES: Intraperitoneal space Bones/joints: Marked fragmentation and collapse of hindfoot and midfoot. Periosteal changes right second metatarsal. Fracture right proximal third metatarsal. A Periosteal changes left first and second metatarsals. Soft tissues right lower leg and foot: Soft tissue defect and posterior medial right mid calf, involving full thickness of subcutaneous fat deep to medial margin of the posterior tibialis muscle. Trace fluid/heme products deep to the wound. Similar findings on the anterior lateral side, but appears to to reach capsular margin extending about 6 cm deep into the posterior tibial muscle. Close proximity to posterior margin fibula. Diffuse muscular edema. Small fluid collection in distal portion of the muscle near musculotendinous junction, estimated 1 x 2.5 cm. Deep laceration in the plantar aspect of hindfoot. 2 cm complex fluid collection anterior to tissue defect. Additional defect in dorsum of the foot. Adjacent superficial elliptical hyperdense collection of 1 x 1 x 2.5 cm. Gas bubbles deep in soft tissue of mid and forefoot. Lymph nodes: See above. IMPRESSION: 1. Atherosclerotic disease, no significant stenosis or occlusive disease. Details as above. 2. Two deep soft tissue ulcers in right lower leg. Abscess in right distal posterior tibialis muscle proximal to and near musculotendinous junction. 3. Deep soft tissue ulcers in dorsum and plantar aspect of the right foot. Abscess associated with the plantar ulcer, abscess and/or hematoma in dorsum of the foot. 4. Fragmentation and collapse of mid and hindfoot, associated periosteal changes, primary differential consideration is bony destruction secondary to osteomyelitis.
--- NOTE | 2017-03-14 13:45 | CP.PCM.PN ---
Subjective - Date & Time of Evaluation Date of Evaluation: 03/14/17 Time of Evaluation: 12:00 - Subjective Subjective: 56 year old female seen at bedside with attending Dr. Kaur 2 day s/p right foot and leg incision and drainage for gas gangrene. Patient is in NAD and is AAOx3. Patient states that her pain is better than yesterday she has more energy than yesterday. Patient denies any further pedal complaints at this time. Patient denies of any F/N/V/C/SOB today. Objective - Vital Signs/Intake and Output Vital Signs (last 24 hours): Temp Pulse Resp BP Pulse Ox 98.7 F 79 20 110/61 98 03/14/17 08:36 03/14/17 08:36 03/14/17 08:36 03/14/17 08:36 03/14/17 08:36 - Medications Medications: Current Medications Acetaminophen (Tylenol 325mg Tab) 650 mg PO Q4 PRN PRN Reason: Pain, Mild (1-3) Dextrose (Dextrose 50% Inj) 0 ml IV STAT PRN; Protocol PRN Reason: Hyglycemia Protocol Dextrose (Glutose 15) 0 gm PO ONCE PRN; Protocol PRN Reason: Hypoglycemia Protocol Docusate Sodium (Colace) 100 mg PO BID [facility] Last Admin: 03/14/17 09:57 Dose: 100 mg Ferrous Sulfate (Feosol) 325 mg PO BID [facility] Last Admin: 03/14/17 09:58 Dose: 325 mg Glucagon (Glucagen Diagnostic Kit) 0 mg IM STAT PRN; Protocol PRN Reason: Hypoglycemia Protocol Hydromorphone HCl (Dilaudid) 1 mg IVP Q4 PRN PRN Reason: Pain (8-10) Last Admin: 03/14/17 10:14 Dose: 1 mg Meropenem 500 mg/ Sodium (Chloride) 100 mls @ 100 mls/hr IVPB Q12 [facility] Last Admin: 03/14/17 10:09 Dose: 100 mls/hr Clindamycin Phosphate 600 mg/ (Sodium Chloride) 104 mls @ 104 mls/hr IVPB Q12 [facility] Last Admin: 03/14/17 10:09 Dose: 104 mls/hr Lactated Ringer's (Lactated Ringer's) 1,000 mls @ 100 mls/hr IV .Q10H [facility] Last Admin: 03/14/17 06:28 Dose: 100 mls/hr Sodium Chloride (Sodium Chloride 0.9%) 1,000 mls @ 0 mls/hr IV .Q0M [facility] PRN Reason: As Directed Stop: 03/14/17 18:33 Insulin Human Lispro (Humalog) 0 units SC ACHS [facility] PRN Reason: Protocol Last Admin: 03/14/17 12:22 Dose: 4 u Oxycodone/Acetaminophen (Percocet 5/325 Mg Tab) 1 tab PO Q4 PRN PRN Reason: Pain, moderate (4-7) Stop: 03/15/17 22:26 Last Admin: 03/13/17 20:27 Dose: 1 tab Pravastatin Sodium (Pravachol) 40 mg PO HS [facility] Last Admin: 03/13/17 21:18 Dose: 40 mg Pregabalin (Lyrica) 100 mg PO TID [facility] Last Admin: 03/14/17 12:22 Dose: 100 mg Sitagliptin Phosphate (Januvia) 100 mg PO DAILY [facility] Last Admin: 03/14/17 09:58 Dose: 100 mg - Labs Labs: 03/14/17 05:51 03/13/17 06:30 PT 14.5 Seconds (9.8-13.1) H 03/12/17 14:40 INR 1.4 (0.9-1.2) H 03/12/17 14:40 APTT 32.6 Seconds (25.6-37.1) 03/12/17 14:40 - Constitutional Appears: Well, Non-toxic, No Acute Distress - Extremities Exam Additional comments: Vasc: 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 Iodorom packing noted to plantar wound and medial and lateral leg incision at this time. No signs of necrosis noted to deep tissue. No malodor, purulent drainage or periwound erythema. Tunneling noted from plantar ulceration site to dorsolateral incision site, no active bleeding noted from the incision site today. Neuro: sensation is grossly diminished bilaterally Ortho: Severe POP to incision sites and posterior leg consistent with surgical procedure MSK: Severe POP to all incision sites consistent with surgery performed - Neurological Exam Neurological Exam: Alert, Awake, Oriented x3 - Psychiatric Exam Psychiatric exam: Normal Affect, Normal Mood Assessment and Plan - Assessment and Plan (Free Text) Assessment: 56 year old female seen 2 days s/p right foot and leg incision and drainage secondary to gas gangrene Plan: Patient seen and evaluated at bedside with attending Dr. Kaur Charts, labs adn vitals reviewed; afebrile, WBC 8.2 down from 9.8 yesterday Dressing changed using surgicel, Iodoform packing, ABD pads, DSD, Coban and SHLOMO Dr. Murillo has been consulted for vascular studies -Abdominal angio - no significant stenosis or occlusive disease noted Continue IV abx per ID Intra op wound cx pending Xrays 03/13 show residual gas in dorsal right foot and posterior right leg Patient to hold on any type of surgical intervention at this time since patient is losing too much blood and responding well to abx therapy Podiatry will continue to follow while patient in house
[2017-03-14] MEDS: Pravastatin Sodium 40 MG TAB PO SCH (21:17)
[2017-03-15] MEDS: Lactated Ringer's 1,000 ML IV SCH ×4 (00:38→15:30)
[2017-03-15 07:21] LABS: BASO # 0.1 K/uL (0.0-0.2); EOS # 0.1 K/uL (0.0-0.7); HEMATOCRIT 28.5 % (34.0-47.0); LYMPH # 1.9 K/uL (1.0-4.3); LYMPH % 17.2 % (20.0-40.0); MEAN CELL VOLUME 86.8 fl (81.0-99.0); MEAN CORPUSCULAR HEMOGLOBIN 28.5 pg (27.0-31.0); MEAN CORPUSCULAR HGB CONC 32.8 g/dL (33.0-37.0); MONO % 9.6 % (0.0-10.0); NEUT # 7.7 K/uL (1.8-7.0); NEUT % 71.2 % (50.0-75.0); RED CELL DISTRIBUTION WIDTH 16.2 % (11.5-14.5); WHITE BLOOD COUNT 10.9 K/uL (4.8-10.8)
[2017-03-15 07:32] LABS: ALB/GLOB RATIO 0.7 (1.0-2.1); ALKALINE PHOSPHATASE 376 U/L (38-126); ALT/SGPT 20 U/L (9-52); AST/SGOT 23 U/L (14-36); BILIRUBIN,TOTAL 0.6 mg/dl (0.2-1.3); BLOOD UREA NITROGEN 16 mg/dl (7-17); CALCIUM 8.4 mg/dL (8.4-10.2); CARBON DIOXIDE 25 mmol/L (22-30); CHLORIDE 103 mmol/L (98-107); GFR AFRICAN-AMERICAN > 60; GLUCOSE,RANDOM 184 mg/dL (65-105); POTASSIUM 4.8 MMOL/L (3.6-5.0); SODIUM 133 mmol/l (132-148); TOTAL PROTEIN 6.6 G/DL (6.3-8.2)
[2017-03-15] MEDS: Clindamycin 600 MG in Sodium Chloride 0.9% 100 ML IVPB SCH ×2 (08:13→21:06)
[2017-03-15] MEDS: Insulin Lispro (humaLOG) 100 Units/ml Inj SC SCH ×4 (08:27→21:05)
[2017-03-15] MEDS: Meropenem 500 MG in Sodium Chloride 0.9% 100 ML IVPB SCH (09:55)
--- NOTE | 2017-03-15 17:02 | CP.PCM.PN ---
Subjective - Date & Time of Evaluation Date of Evaluation: 03/15/17 Time of Evaluation: 02:30 - Subjective Subjective: 56 year old female seen at bedside 3 days s/p right foot and leg incision and drainage for gas gangrene. Patient is in NAD and is AAOx3. Patient states that her pain is better than yesterday she has more energy than yesterday. Patient states that she feels her best today. Patient denies any further pedal complaints at this time. Patient denies of any F/N/V/C/SOB today. Objective - Vital Signs/Intake and Output Vital Signs (last 24 hours): Temp Pulse Resp BP Pulse Ox 98.0 F 79 19 107/55 L 98 03/15/17 15:54 03/15/17 15:54 03/15/17 15:54 03/15/17 15:54 03/15/17 15:54 - Medications Medications: Current Medications Acetaminophen (Tylenol 325mg Tab) 650 mg PO Q4 PRN PRN Reason: Pain, Mild (1-3) Dextrose (Dextrose 50% Inj) 0 ml IV STAT PRN; Protocol PRN Reason: Hyglycemia Protocol Dextrose (Glutose 15) 0 gm PO ONCE PRN; Protocol PRN Reason: Hypoglycemia Protocol Docusate Sodium (Colace) 100 mg PO BID [facility] Last Admin: 03/15/17 08:27 Dose: 100 mg Ferrous Sulfate (Feosol) 325 mg PO BID [facility] Last Admin: 03/15/17 08:27 Dose: 325 mg Glucagon (Glucagen Diagnostic Kit) 0 mg IM STAT PRN; Protocol PRN Reason: Hypoglycemia Protocol Hydromorphone HCl (Dilaudid) 1 mg IVP Q4 PRN PRN Reason: Pain (8-10) Last Admin: 03/15/17 12:42 Dose: 1 mg Meropenem 500 mg/ Sodium (Chloride) 100 mls @ 100 mls/hr IVPB Q12 [facility] Last Admin: 03/15/17 09:55 Dose: 100 mls/hr Clindamycin Phosphate 600 mg/ (Sodium Chloride) 104 mls @ 104 mls/hr IVPB Q12 [facility] Last Admin: 03/15/17 08:13 Dose: 104 mls/hr Lactated Ringer's (Lactated Ringer's) 1,000 mls @ 100 mls/hr IV .Q10H [facility] Last Admin: 03/15/17 15:30 Dose: 100 mls/hr Insulin Human Lispro (Humalog) 0 units SC ACHS [facility] PRN Reason: Protocol Last Admin: 03/15/17 12:34 Dose: 3 u Oxycodone/Acetaminophen (Percocet 5/325 Mg Tab) 1 tab PO Q4 PRN PRN Reason: Pain, moderate (4-7) Stop: 03/15/17 22:26 Last Admin: 03/13/17 20:27 Dose: 1 tab Pravastatin Sodium (Pravachol) 40 mg PO HS [facility] Last Admin: 03/14/17 21:17 Dose: 40 mg Pregabalin (Lyrica) 100 mg PO TID [facility] Last Admin: 03/15/17 13:32 Dose: 100 mg Sitagliptin Phosphate (Januvia) 100 mg PO DAILY [facility] Last Admin: 03/15/17 08:29 Dose: 100 mg - Labs Labs: 03/15/17 05:30 03/15/17 05:30 PT 14.5 Seconds (9.8-13.1) H 03/12/17 14:40 INR 1.4 (0.9-1.2) H 03/12/17 14:40 APTT 32.6 Seconds (25.6-37.1) 03/12/17 14:40 - Constitutional Appears: Well, Non-toxic, No Acute Distress - Extremities Exam Additional comments: 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 Iodorom packing noted to plantar wound and medial and lateral leg incision as well as the dorsal foot incision. No signs of necrosis noted to deep tissue. No malodor, purulent drainage or periwound erythema. Tunneling noted from plantar ulceration site to dorsolateral incision site, no active bleeding noted from the incision site today. From the plantar ulceration , approximately 3 cc of serous/purulent drainage expressed Neuro: sensation is grossly diminished bilaterally Ortho: Severe POP to incision sites and posterior leg consistent with surgical procedure MSK: Severe POP to all incision sites consistent with surgery performed - Neurological Exam Neurological Exam: Alert, Awake, Oriented x3 - Psychiatric Exam Psychiatric exam: Normal Affect, Normal Mood Assessment and Plan - Assessment and Plan (Free Text) Assessment: 56 year old female seen 3 days s/p right foot and leg incision and drainage secondary to gas gangrene Plan: Patient seen and evaluated at bedside Patient discussed in details with attending Dr. Kaur Charts, labs and vitals reviewed; afebrile, WBC 8.2 down from 9.8 yesterday Dressing changed using Iodoform packing, ABD pads, DSD, Coban and SHLOMO Dr. Murillo has been consulted for vascular studies -Abdominal angio - no significant stenosis or occlusive disease noted Continue IV abx per ID Intra op wound cx growth: corynebacterium species Xrays 03/13 show residual gas in dorsal right foot and posterior right leg Patient bleeding has been stabilized and did not lose blood during dressing change Podiatry will continue to follow while patient in house
--- NOTE | 2017-03-15 18:13 | CP.PCM.PN ---
Subjective - Date & Time of Evaluation Date of Evaluation: 03/15/17 Time of Evaluation: 18:10 - Subjective Subjective: I D NOTE HAVE ADJUSTED DOSE OF MEROPENEM IHE PROGNOSIS FOR THIS PATIENT IS POOR CONSIDERING DM AND NEED FOR CONTINUED ANTIBIOTIC COVERAGE Objective - Vital Signs/Intake and Output Vital Signs (last 24 hours): Temp Pulse Resp BP Pulse Ox 98.0 F 79 19 107/55 L 98 03/15/17 15:54 03/15/17 15:54 03/15/17 15:54 03/15/17 15:54 03/15/17 15:54 - Medications Medications: Current Medications Acetaminophen (Tylenol 325mg Tab) 650 mg PO Q4 PRN PRN Reason: Pain, Mild (1-3) Dextrose (Dextrose 50% Inj) 0 ml IV STAT PRN; Protocol PRN Reason: Hyglycemia Protocol Dextrose (Glutose 15) 0 gm PO ONCE PRN; Protocol PRN Reason: Hypoglycemia Protocol Docusate Sodium (Colace) 100 mg PO BID [facility] Last Admin: 03/15/17 17:56 Dose: 100 mg Ferrous Sulfate (Feosol) 325 mg PO BID [facility] Last Admin: 03/15/17 17:57 Dose: 325 mg Glucagon (Glucagen Diagnostic Kit) 0 mg IM STAT PRN; Protocol PRN Reason: Hypoglycemia Protocol Hydromorphone HCl (Dilaudid) 1 mg IVP Q4 PRN PRN Reason: Pain (8-10) Last Admin: 03/15/17 17:55 Dose: 1 mg Clindamycin Phosphate 600 mg/ (Sodium Chloride) 104 mls @ 104 mls/hr IVPB Q12 [facility] Last Admin: 03/15/17 08:13 Dose: 104 mls/hr Lactated Ringer's (Lactated Ringer's) 1,000 mls @ 100 mls/hr IV .Q10H [facility] Last Admin: 03/15/17 15:30 Dose: 100 mls/hr Meropenem 1 gm/ Sodium (Chloride) 100 mls @ 100 mls/hr IVPB Q12 [facility] Insulin Human Lispro (Humalog) 0 units SC ACHS [facility] PRN Reason: Protocol Last Admin: 03/15/17 17:57 Dose: 4 u Oxycodone/Acetaminophen (Percocet 5/325 Mg Tab) 1 tab PO Q4 PRN PRN Reason: Pain, moderate (4-7) Stop: 03/15/17 22:26 Last Admin: 03/13/17 20:27 Dose: 1 tab Pravastatin Sodium (Pravachol) 40 mg PO HS [facility] Last Admin: 03/14/17 21:17 Dose: 40 mg Pregabalin (Lyrica) 100 mg PO TID [facility] Last Admin: 03/15/17 13:32 Dose: 100 mg Sitagliptin Phosphate (Januvia) 100 mg PO DAILY [facility] Last Admin: 03/15/17 08:29 Dose: 100 mg - Labs Labs: 03/15/17 05:30 03/15/17 05:30 PT 14.5 Seconds (9.8-13.1) H 03/12/17 14:40 INR 1.4 (0.9-1.2) H 03/12/17 14:40 APTT 32.6 Seconds (25.6-37.1) 03/12/17 14:40
[2017-03-15] MEDS: Meropenem 1 GM in Sodium Chloride 0.9% 100 ML IVPB SCH (20:21)
[2017-03-15] MEDS: Pravastatin Sodium 40 MG TAB PO SCH (21:05)
--- NOTE | 2017-03-16 08:07 | CP.PCM.PN ---
Subjective - Date & Time of Evaluation Date of Evaluation: 03/16/17 Time of Evaluation: 08:05 - Subjective Subjective: Podiatry- Dr. Kaur 56 year old female seen at bedside 4 days s/p right foot and leg incision and drainage for gas gangrene. Patient is in NAD and is AAOx3. Patient states that her pain is better than yesterday and that she has more energy than yesterday. Patient denies any further pedal complaints at this time. Patient denies of any F/N/V/C/SOB today. Objective - Vital Signs/Intake and Output Vital Signs (last 24 hours): Temp Pulse Resp BP Pulse Ox 98.4 F 75 20 112/59 L 97 03/16/17 07:45 03/16/17 07:45 03/16/17 07:45 03/16/17 07:45 03/16/17 07:45 - Medications Medications: Current Medications Acetaminophen (Tylenol 325mg Tab) 650 mg PO Q4 PRN PRN Reason: Pain, Mild (1-3) Dextrose (Dextrose 50% Inj) 0 ml IV STAT PRN; Protocol PRN Reason: Hyglycemia Protocol Dextrose (Glutose 15) 0 gm PO ONCE PRN; Protocol PRN Reason: Hypoglycemia Protocol Docusate Sodium (Colace) 100 mg PO BID [facility] Last Admin: 03/15/17 17:56 Dose: 100 mg Ferrous Sulfate (Feosol) 325 mg PO BID [facility] Last Admin: 03/15/17 17:57 Dose: 325 mg Glucagon (Glucagen Diagnostic Kit) 0 mg IM STAT PRN; Protocol PRN Reason: Hypoglycemia Protocol Hydromorphone HCl (Dilaudid) 1 mg IVP Q4 PRN PRN Reason: Pain (8-10) Last Admin: 03/15/17 21:41 Dose: 1 mg Clindamycin Phosphate 600 mg/ (Sodium Chloride) 104 mls @ 104 mls/hr IVPB Q12 [facility] Last Admin: 03/15/17 21:06 Dose: 104 mls/hr Lactated Ringer's (Lactated Ringer's) 1,000 mls @ 100 mls/hr IV .Q10H [facility] Last Admin: 03/15/17 15:30 Dose: 100 mls/hr Meropenem 1 gm/ Sodium (Ch[facility]) 100 mls @ 100 mls/hr IVPB Q12 [facility] Last Admin: 03/15/17 20:21 Dose: 100 mls/hr Insulin Human Lispro (Humalog) 0 units SC ACHS [facility] PRN Reason: Protocol Last Admin: 03/15/17 21:05 Dose: Not Given Pravastatin Sodium (Pravachol) 40 mg PO HS [facility] Last Admin: 03/15/17 21:05 Dose: 40 mg Pregabalin (Lyrica) 100 mg PO TID [facility] Last Admin: 03/15/17 18:27 Dose: 100 mg Sitagliptin Phosphate (Januvia) 100 mg PO DAILY [facility] Last Admin: 03/15/17 08:29 Dose: 100 mg - Labs Labs: 03/15/17 05:30 03/15/17 05:30 PT 14.5 Seconds (9.8-13.1) H 03/12/17 14:40 INR 1.4 (0.9-1.2) H 03/12/17 14:40 APTT 32.6 Seconds (25.6-37.1) 03/12/17 14:40 - Constitutional Appears: Well, Non-toxic, No Acute Distress - Extremities Exam Additional comments: 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 Iodorom packing noted to plantar wound and medial and lateral leg incisions as well as the dorsal foot incisions. No signs of necrosis noted to deep tissue. No malodor, purulent drainage or periwound erythema. Tunneling noted from plantar ulceration site to dorsolateral incision site, no active bleeding noted from the incision site today. No purulent drainage expressed today. Hematoma's noted diffusely across dorsal midfoot Neuro: sensation is grossly diminished bilaterally Ortho: Severe POP to incision sites and posterior leg consistent with surgical procedure - Neurological Exam Neurological Exam: Alert, Awake, Oriented x3 - Psychiatric Exam Psychiatric exam: Normal Affect, Normal Mood Assessment and Plan - Assessment and Plan (Free Text) Assessment: 56 year old female seen 4 days s/p right foot and leg incision and drainage secondary to gas gangrene Plan: Patient seen and evaluated at bedside Patient discussed in detail with attending Dr. Kaur Charts, labs and vitals reviewed; afebrile, WBC 10.9 yesterday, up from 8.2 Dressing changed using Iodoform packing, ABD pads, DSD, Coban and SHLOMO Abdominal angio - no significant stenosis or occlusive disease noted Continue IV abx per ID MRI right foot results pending No surgical intervention planned at this time Intra op wound cx growth: corynebacterium species Xrays 03/13 show residual gas in dorsal right foot and posterior right leg Patient bleeding has been stabilized and did not lose blood during dressing change Podiatry will continue to follow while patient in house
[2017-03-16] MEDS: Clindamycin 600 MG in Sodium Chloride 0.9% 100 ML IVPB SCH ×2 (08:28→22:24)
[2017-03-16] MEDS: Insulin Lispro (humaLOG) 100 Units/ml Inj SC SCH ×4 (08:29→21:45)
[2017-03-16] MEDS: Meropenem 1 GM in Sodium Chloride 0.9% 100 ML IVPB SCH ×2 (08:30→21:35)
--- NOTE | 2017-03-16 10:41 | CP.PCM.PN ---
Subjective - Date & Time of Evaluation Date of Evaluation: 03/15/17 Time of Evaluation: 10:40 - Subjective Subjective: Patient remains stable Has no chest pain or SOB Afebrile. accuchecks are elevated Objective - Vital Signs/Intake and Output Vital Signs (last 24 hours): Temp Pulse Resp BP Pulse Ox 98.4 F 75 20 112/59 L 97 03/16/17 07:45 03/16/17 07:45 03/16/17 07:45 03/16/17 07:45 03/16/17 07:45 - Medications Medications: Current Medications Acetaminophen (Tylenol 325mg Tab) 650 mg PO Q4 PRN PRN Reason: Pain, Mild (1-3) Dextrose (Dextrose 50% Inj) 0 ml IV STAT PRN; Protocol PRN Reason: Hyglycemia Protocol Dextrose (Glutose 15) 0 gm PO ONCE PRN; Protocol PRN Reason: Hypoglycemia Protocol Docusate Sodium (Colace) 100 mg PO BID [facility] Last Admin: 03/16/17 08:28 Dose: 100 mg Ferrous Sulfate (Feosol) 325 mg PO BID [facility] Last Admin: 03/16/17 08:29 Dose: 325 mg Glucagon (Glucagen Diagnostic Kit) 0 mg IM STAT PRN; Protocol PRN Reason: Hypoglycemia Protocol Hydromorphone HCl (Dilaudid) 1 mg IVP Q4 PRN PRN Reason: Pain (8-10) Last Admin: 03/16/17 08:38 Dose: 1 mg Clindamycin Phosphate 600 mg/ (Sodium Chloride) 104 mls @ 104 mls/hr IVPB Q12 [facility] Last Admin: 03/16/17 08:28 Dose: 104 mls/hr Lactated Ringer's (Lactated Ringer's) 1,000 mls @ 100 mls/hr IV .Q10H [facility] Last Admin: 03/15/17 15:30 Dose: 100 mls/hr Meropenem 1 gm/ Sodium (Chloride) 100 mls @ 100 mls/hr IVPB Q12 [facility] Last Admin: 03/16/17 08:30 Dose: 100 mls/hr Insulin Human Lispro (Humalog) 0 units SC ACHS [facility] PRN Reason: Protocol Last Admin: 03/16/17 08:29 Dose: 3 u Pravastatin Sodium (Pravachol) 40 mg PO HS [facility] Last Admin: 03/15/17 21:05 Dose: 40 mg Pregabalin (Lyrica) 100 mg PO TID [facility] Last Admin: 03/16/17 08:38 Dose: 100 mg Sitagliptin Phosphate (Januvia) 100 mg PO DAILY [facility] Last Admin: 03/16/17 08:30 Dose: 100 mg - Labs Labs: 03/15/17 05:30 03/15/17 05:30 PT 14.5 Seconds (9.8-13.1) H 03/12/17 14:40 INR 1.4 (0.9-1.2) H 03/12/17 14:40 APTT 32.6 Seconds (25.6-37.1) 03/12/17 14:40 - Head Exam Head Exam: NORMAL INSPECTION - Eye Exam Eye Exam: Normal appearance - ENT Exam ENT Exam: Mucous Membranes Moist - Respiratory Exam Respiratory Exam: Clear to Ausculation Bilateral - Cardiovascular Exam Cardiovascular Exam: REGULAR RHYTHM - GI/Abdominal Exam GI & Abdominal Exam: Normal Bowel Sounds - Neurological Exam Neurological Exam: Awake, Oriented x3 Assessment and Plan (1) Gangrene of foot Status: Acute (2) Bleeding Status: Acute (3) Uncontrolled type 2 diabetes mellitus Status: Chronic (4) Osteomyelitis of foot Status: Acute - Assessment and Plan (Free Text) Plan: cont meds Cont tx Cont wound care
--- NOTE | 2017-03-16 10:42 | CP.PCM.PN ---
Subjective - Date & Time of Evaluation Date of Evaluation: 03/16/17 Time of Evaluation: 10:41 - Subjective Subjective: Patient remains stable Has no chest pain or SOB Has minimal pain on the right leg foot. Objective - Vital Signs/Intake and Output Vital Signs (last 24 hours): Temp Pulse Resp BP Pulse Ox 98.4 F 75 20 112/59 L 97 03/16/17 07:45 03/16/17 07:45 03/16/17 07:45 03/16/17 07:45 03/16/17 07:45 - Medications Medications: Current Medications Acetaminophen (Tylenol 325mg Tab) 650 mg PO Q4 PRN PRN Reason: Pain, Mild (1-3) Dextrose (Dextrose 50% Inj) 0 ml IV STAT PRN; Protocol PRN Reason: Hyglycemia Protocol Dextrose (Glutose 15) 0 gm PO ONCE PRN; Protocol PRN Reason: Hypoglycemia Protocol Docusate Sodium (Colace) 100 mg PO BID [facility] Last Admin: 03/16/17 08:28 Dose: 100 mg Ferrous Sulfate (Feosol) 325 mg PO BID [facility] Last Admin: 03/16/17 08:29 Dose: 325 mg Glucagon (Glucagen Diagnostic Kit) 0 mg IM STAT PRN; Protocol PRN Reason: Hypoglycemia Protocol Hydromorphone HCl (Dilaudid) 1 mg IVP Q4 PRN PRN Reason: Pain (8-10) Last Admin: 03/16/17 08:38 Dose: 1 mg Clindamycin Phosphate 600 mg/ (Sodium Chloride) 104 mls @ 104 mls/hr IVPB Q12 [facility] Last Admin: 03/16/17 08:28 Dose: 104 mls/hr Lactated Ringer's (Lactated Ringer's) 1,000 mls @ 100 mls/hr IV .Q10H [facility] Last Admin: 03/15/17 15:30 Dose: 100 mls/hr Meropenem 1 gm/ Sodium (Chloride) 100 mls @ 100 mls/hr IVPB Q12 [facility] Last Admin: 03/16/17 08:30 Dose: 100 mls/hr Insulin Human Lispro (Humalog) 0 units SC ACHS [facility] PRN Reason: Protocol Last Admin: 03/16/17 08:29 Dose: 3 u Pravastatin Sodium (Pravachol) 40 mg PO HS [facility] Last Admin: 03/15/17 21:05 Dose: 40 mg Pregabalin (Lyrica) 100 mg PO TID [facility] Last Admin: 03/16/17 08:38 Dose: 100 mg Sitagliptin Phosphate (Januvia) 100 mg PO DAILY [facility] Last Admin: 03/16/17 08:30 Dose: 100 mg - Labs Labs: 03/15/17 05:30 03/15/17 05:30 PT 14.5 Seconds (9.8-13.1) H 03/12/17 14:40 INR 1.4 (0.9-1.2) H 03/12/17 14:40 APTT 32.6 Seconds (25.6-37.1) 03/12/17 14:40 - Head Exam Head Exam: NORMAL INSPECTION - Eye Exam Eye Exam: Normal appearance - ENT Exam ENT Exam: Mucous Membranes Moist - Respiratory Exam Respiratory Exam: Clear to Ausculation Bilateral - Cardiovascular Exam Cardiovascular Exam: REGULAR RHYTHM - GI/Abdominal Exam GI & Abdominal Exam: Normal Bowel Sounds - Neurological Exam Neurological Exam: Awake, Oriented x3 Assessment and Plan (1) Gangrene of foot Status: Acute (2) Bleeding Status: Acute (3) Uncontrolled type 2 diabetes mellitus Status: Chronic (4) Osteomyelitis of foot Status: Acute - Assessment and Plan (Free Text) Plan: Cont meds Cont tx Cont wound care
--- NOTE | 2017-03-16 11:02 | MRI ---
PROCEDURE: MRI of the right foot without contrast HISTORY: Signs and symptoms solid cellulitis of the right foot, evaluate for osteomyelitis. Right foot wound infection/gas gangrene. COMPARISON: Comparison is made to the previous study dated 01/13/2017 TECHNIQUE: Axial coronal and sagittal MRI images of the right foot were obtained without IV contrast administration. FINDINGS: The assessment is suboptimal without IV contrast administration. Interval marked lead worsening of bone marrow edema and bony destruction involving the tarsal bones and the metatarsal bones since the previous exam. Interval almost complete destruction of the cuboid bone since the previous exam consistent with osteomyelitis. There is diffuse abnormal bone marrow signal at the navicular bone associated also with partial destruction of the lateral aspect of the bone also consistent with osteomyelitis and possible combination of osteomyelitis and Charcot arthropathy. There is also almost complete destruction of the lateral and middle cuneiform bones and partial destruction of the heel cuneiform bone. There is interval appearance of destruction at the proximal and base of the 2nd 3rd 4th and 5th metatarsal bone associated with diffuse abnormal bone marrow signal. There is also destruction and abnormal bone marrow signal at the mid to distal 3rd metatarsal bone also consistent with worsening toe osteomyelitis. There is destruction at the ankle joint and visualized portion of the mid to distal calcaneus bone. Interval appearance of patchy bone marrow signal at the talar bone and possible cortical erosion. There is also focal bony destruction at the distal dorsal portion of the talar bone also consistent with osteomyelitis. Re- demonstration of deep skin and soft tissue ulcer and large defect in the dorsal aspect of the midfoot extending to the level of the distal talar bone and distal calcaneus bone. The possibility of abscess formation is not totally excluded in this noncontrast study. There is diffuse abnormal soft tissue signal in the dorsal aspect of the right midfoot it extending almost to the level of the metatarsal pharyngeal joint. There is a diffuse abnormal increased signal and abnormal signal in the muscles and tendon at the level of the midfoot suggestive of tendinopathy and myositis. IMPRESSION: Suboptimal assessment without IV contrast administration. Interval significant worsening of bone marrow edema and bony destruction at the level of the tarsal bones and the proximal portion of the 2nd to 5th metatarsal bones consistent with interval severe worsening of osteomyelitis. Findings also suggestive of osteomyelitis involving the mid and distal portion of the calcaneus bone with almost complete destruction of the distal calcaneus bone and almost complete destruction of the cuboid bone lateral and middle cuneiform bones. Abnormal bone marrow signal and cortical destruction of the 2nd to 5th metatarsal bones. Re- demonstration of deformity and large callus formation at the distal 2nd metatarsal bone. Interval appearance of foci of abnormal bone marrow signal and partial cortical destruction of the distal talar bone since the previous exam also suggestive of osteomyelitis. Interval significant worsening of myositis and tendinopathy at the proximal and mid right foot since the previous exam. The possibility of abscess formation is not totally excluded at the midfoot in this noncontrast study.
--- NOTE | 2017-03-16 14:17 | PQF CHF ---
This form is a permanent part of the medical record 03/16/17 Dr. Willoughby, Please clarify the type of CHF . If CHF is ruled out please document. Documentation of a history of CHF. Echo from December 2016: EF normal 55%, Grade 1- abnormal relaxation pattern. No medications noted Clarification of your documentation is requested to better reflect the severity of illness and intensity of treatment of your patient. Indicators present [x] Diagnosis of a history of CHF [] BNP > 200 [] Imaging Finding of Pulmonary Edema /Pleural Effusions [] Fluid/Volume Overload [] Pitting edema [] Ejection Fraction < 40% (Indicative of Systolic Heart Failure) [x] Ejection Fraction > 40% (Indicative of Diastolic Heart Failure) [] Dyspnea / Orthopenea / Paroxysmal Nocturnal Dyspnea [] Other: Location in the medical record that reflects the above clinical findings: [] Treatment Provided: [] PHYSICIAN'S RESPONSE Based on your medical judgment of the clinical indicators outlined above, are you treating this patient for a known or suspected: [] Acute CHF [] Systolic [] Diastolic [] Combined [] Chronic CHF [] Systolic [] Diastolic [] Combined [] Acute on Chronic CHF []Systolic [] Diastolic [] Combined [] CHF due hypertension [] Acute systolic []Chronic systolic [] Acute/ chronic systolic [] Other, please indicate: [] [] If Unable to Determine, please check the box, sign and date. [] CHF ruled out Present On Admission (POA) Indicator: [] Present at the time of admission [] Not present at the time of admission [] Clinically Undetermined In responding to this query, please exercise your independent professional judgment. The fact that a question is asked does not imply that any particular answer is desired or expected. Thank you for your clarification on this documentation. If you have any questions please call:extension [phone] * Thank you, Dorothea Jones RN CDMP MTDD
[2017-03-16 16:02] LABS: HEMATOCRIT 29.6 % (34.0-47.0); MEAN CELL VOLUME 87.4 fl (81.0-99.0); MEAN CORPUSCULAR HEMOGLOBIN 28.4 pg (27.0-31.0); MEAN CORPUSCULAR HGB CONC 32.5 g/dL (33.0-37.0); RED CELL DISTRIBUTION WIDTH 16.3 % (11.5-14.5); WHITE BLOOD COUNT 11.4 K/uL (4.8-10.8)
[2017-03-16 16:12] LABS: BLOOD UREA NITROGEN 16 mg/dl (7-17); CALCIUM 8.8 mg/dL (8.4-10.2); CARBON DIOXIDE 25 mmol/L (22-30); CHLORIDE 98 mmol/L (98-107); GFR AFRICAN-AMERICAN > 60; GLUCOSE,RANDOM 330 mg/dL (65-105); POTASSIUM 5.2 MMOL/L (3.6-5.0); SODIUM 132 mmol/l (132-148)
--- NOTE | 2017-03-16 17:02 | CP.PCM.CON ---
History of Present Illness - History of Present Illness History of Present Illness: I was asked to evalaute patient given history of gas gangrene. Patient is a 56 year old female with PMH HTN, hypercholesterolemia and DM who presents with necrtoic foot ulcer. The patient was noted to have a worsening foot ulcer. She developed gangrene of the foot. She was taken to the OR. The patient has intermittent pain of the right foot. Review of Systems - EENT Eyes: absent: As Per HPI, Blind Spots, Blurred Vision, Change in Vision, Decreased Night Vision, Diplopia, Discharge, Dry Eye, Exophthalmos, Floaters, Irritation, Itchy Eyes, Loss of Peripheral Vision, Pain, Photophobia, Requires Corrective Lenses, Sees Flashes, Spots in Vision, Tunnel Vision, Other Visual Disturbances, Loss of Vision, Other Ears: absent: As Per HPI, Decreased Hearing, Ear Discharge, Ear Pain, Tinnitus, Abnormal Hearing, Disequilibrium, Dizziness, Other Nose/Mouth/Throat: absent: As Per HPI, Epistaxis, Nasal Congestion, Nasal Discharge, Nasal Obstruction, Nasal Trauma, Nose Pain, Post Nasal Drip, Sinus Pain, Sinus Pressure, Bleeding Gums, Change in Voice, Dental Pain, Dry Mouth, Dysphagia, Halitosis, Hoarsness, Lip Swelling, Mouth Lesions, Mouth Pain, Odynophagia, Sore Throat, Throat Swelling, Tongue Swelling, Facial Pain, Neck Pain, Neck Mass, Other - Cardiovascular Cardiovascular: absent: As Per HPI, Acrocyanosis, Chest Pain, Chest Pain at Rest , Chest Pain with Activity, Claudication, Diaphoresis, Dyspnea, Dyspnea on Exertion, Edema, Irregular Heart Rhythm, Pain Radiating to Arm/Neck/Jaw, Leg Edema, Leg Ulcers, Lightheadedness, Orthopnea, Palpitations, Paroxysmal Nocturnal Dyspnea, Pedal Edema, Radiating Pain, Rapid Heart Rate, Slow Heart Rate, Syncope, Other - Respiratory Respiratory: absent: As Per HPI, Cough, Dyspnea, Hemoptysis, Dyspnea on Exertion , Wheezing, Snoring, Stridor, Pain on Inspiration, Chest Congestion, Excessive Mucous Production, Change in Mucous Color, Pain with Coughing, Other - Gastrointestinal Gastrointestinal: absent: As Per HPI, Abdominal Pain, Belching, Bloating, Change in Bowel Habits, Change in Stool Character, Coffee Ground Emesis, Constipation, Cramping, Diarrhea, Dyspepsia, Dysphagia, Early Satiety, Excessive Flatus, Fecal Incontinence, Heartburn, Hematemesis, Hematochezia, Loose Stools, Melena, Nausea, Odynophagia, Temesmus, Vomiting, Other - Genitourinary Genitourinary: absent: As Per HPI, Change in Urinary Stream, Difficulty Urinating, Dysuria, Flank Pain, Hematuria, Pyuria, Nocturia, Urinary Incontinence, Urinary Frequency, Urinary Hesitance, Urinary Urgency, Voiding Freq/Small Amts, Freq UTI, Hx Renal/Bladder Calculi, Hx /Renal Surgery, Bladder Distension, Other - Musculoskeletal Musculoskeletal: Radiating Pain into Limb - Integumentary Integumentary: absent: As Per HPI, Acne, Alopecia, Bleeding Lesions, Change in Hair, Change in Nails, Change in Pigmentation, Changing Lesions, Dry Skin, Erythema, Furuncle, Hirsutism, Lesions, New Lesions, Non-Healing Lesions, Photosensitivity, Pruritus, Rash, Skin Pain, Skin Ulcer, Sores, Striae, Swelling , Unusual Bruising, Wounds, Jaundice, Other - Neurological Neurological: absent: As Per HPI, Abnormal Gait, Abnormal Hearing, Abnormal Movements, Abnormal Speech, Behavioral Changes, Burning Sensations, Confusion, Convulsions, Disequilibrium, Dizziness, Numbness, Focal Weakness, Frequent Falls , Headaches, Lack of Coordination, Loss of Vision, Memory Loss, Paresthesias, Radicular Pain, Restless Legs, Sensory Deficit, Syncope, Tingling, Tremor, Vertigo, Weakness, Other Visual Disturbances, Other - Psychiatric Psychiatric: absent: As Per HPI, Abnormal Sleep Pattern, Anhedonia, Anxiety, Auditory Hallucinations, Behavioral Changes, Change in Appetite, Change in Libido, Confusion, Depression, Difficulty Concentrating, Hallucinations, Homicidal Ideation, Hopelessness, Irritability, Memory Loss, Mood Swings, Panic Attacks, Paranoia, Suicidal Ideation, Visual Hallucinations, Tactile Hallucinations, Other - Endocrine Endocrine: absent: As Per HPI, Change in Body Appearance, Change in Libido, Cold Intolorance, Deepening of Voice, Excessive Sweating, Fatigue, Flushing, Heat Intolorance, Increase in Ring/Shoe/Hat Size, Palpitations, Polydipsia, Polyphagia, Polyuria, Other - Hematologic/Lymphatic Hematologic: absent: As Per HPI, Easy Bleeding, Easy Bruising, Lymphadenopathy, Other Past Patient History - Infectious Disease Hx of Infectious Diseases: None - Past Medical History & Family History Past Medical History?: Yes - Past Social History Smoking Status: Heavy Smoker > 10 Cigarettes Daily - CARDIAC Hx Hypercholesterolemia: Yes Hx Hypertension: Yes - PULMONARY Hx Asthma: Yes - NEUROLOGICAL Hx Neurological Disorder: No - HEENT Other/Comment: uses eyeglasses - RENAL Hx Chronic Kidney Disease: No - ENDOCRINE/METABOLIC Hx Diabetes Mellitus Type 2: Yes - HEMATOLOGICAL/ONCOLOGICAL Hx Blood Disorders: No - INTEGUMENTARY Hx Dermatological Problems: Yes - MUSCULOSKELETAL/RHEUMATOLOGICAL Hx Musculoskeletal Disorders: Yes - GASTROINTESTINAL Hx Gastrointestinal Disorders: No - GENITOURINARY/GYNECOLOGICAL Hx Genitourinary Disorders: No - PSYCHIATRIC Hx Anxiety: Yes Hx Depression: Yes Hx Substance Use: No - SURGICAL HISTORY Hx Surgeries: Yes Hx Appendectomy: Yes Hx Carotid Endarterectomy: Yes Hx Cholecystectomy: Yes Other/Comment: I@D rt. foot - ANESTHESIA Hx Anesthesia: Yes Hx Anesthesia Reactions: No Hx Malignant Hyperthermia: No Meds Allergies/Adverse Reactions: Allergies Allergy/AdvReac Type Severity Reaction Status Date / Time vancomycin AdvReac ITCHING Verified 05/22/16 13:09 - Medications Medications: Current Medications Acetaminophen (Tylenol 325mg Tab) 650 mg PO Q4 PRN PRN Reason: Pain, Mild (1-3) Dextrose (Dextrose 50% Inj) 0 ml IV STAT PRN; Protocol PRN Reason: Hyglycemia Protocol Dextrose (Glutose 15) 0 gm PO ONCE PRN; Protocol PRN Reason: Hypoglycemia Protocol Docusate Sodium (Colace) 100 mg PO BID [facility] Last Admin: 03/16/17 16:51 Dose: 100 mg Ferrous Sulfate (Feosol) 325 mg PO BID [facility] Last Admin: 03/16/17 16:51 Dose: 325 mg Glucagon (Glucagen Diagnostic Kit) 0 mg IM STAT PRN; Protocol PRN Reason: Hypoglycemia Protocol Hydromorphone HCl (Dilaudid) 1 mg IVP Q4 PRN PRN Reason: Pain (8-10) Last Admin: 03/16/17 13:22 Dose: 1 mg Clindamycin Phosphate 600 mg/ (Sodium Chloride) 104 mls @ 104 mls/hr IVPB Q12 [facility] Last Admin: 03/16/17 08:28 Dose: 104 mls/hr Lactated Ringer's (Lactated Ringer's) 1,000 mls @ 100 mls/hr IV .Q10H [facility] Last Admin: 03/15/17 15:30 Dose: 100 mls/hr Meropenem 1 gm/ Sodium (Chloride) 100 mls @ 100 mls/hr IVPB Q12 [facility] Last Admin: 03/16/17 08:30 Dose: 100 mls/hr Insulin Human Lispro (Humalog) 0 units SC ACHS [facility] PRN Reason: Protocol Last Admin: 03/16/17 16:52 Dose: 3 u Pravastatin Sodium (Pravachol) 40 mg PO HS [facility] Last Admin: 03/15/17 21:05 Dose: 40 mg Pregabalin (Lyrica) 100 mg PO TID [facility] Last Admin: 03/16/17 16:55 Dose: 100 mg Sitagliptin Phosphate (Januvia) 100 mg PO DAILY [facility] Last Admin: 03/16/17 08:30 Dose: 100 mg Physical Exam - Constitutional Appears: Toxic - Head Exam Head Exam: NORMAL INSPECTION - Eye Exam Eye Exam: Normal appearance - ENT Exam ENT Exam: Mucous Membranes Moist - Neck Exam Neck exam: Positive for: Full Rom - Respiratory Exam Respiratory Exam: NORMAL BREATHING PATTERN - Cardiovascular Exam Cardiovascular Exam: REGULAR RHYTHM - GI/Abdominal Exam GI & Abdominal Exam: Normal Bowel Sounds - Rectal Exam Rectal Exam: Deferred - Extremities Exam Additional comments: necrotic foot ulcer - Back Exam Back exam: NORMAL INSPECTION - Neurological Exam Neurological exam: Alert, Oriented x3 - Psychiatric Exam Psychiatric exam: Normal Affect - Skin Skin Exam: Normal Color Results - Vital Signs Recent Vital Signs: Last Vital Signs Temp 97.8 F 03/16/17 15:56 Pulse 75 03/16/17 15:56 Resp 17 03/16/17 15:56 BP 120/64 03/16/17 15:56 Pulse Ox 98 03/16/17 15:56 - Labs Result Diagrams: 03/16/17 15:50 03/16/17 15:50 Labs: Laboratory Results - last 24 hr 03/15/17 03/16/17 03/16/17 21:05 06:12 11:34 WBC RBC Hgb Hct MCV MCH MCHC RDW Plt Count PT INR APTT Sodium Potassium Chloride Carbon Dioxide Anion Gap BUN Creatinine Est GFR ( Amer) Est GFR (Non-Af Amer) POC Glucose (mg/dL) 295 H 278 H 355 H Random Glucose Calcium 03/16/17 03/16/17 03/16/17 15:26 15:50 15:50 WBC 11.4 H RBC 3.39 L Hgb 9.6 L Hct 29.6 L MCV 87.4 MCH 28.4 MCHC 32.5 L RDW 16.3 H Plt Count 300 PT 11.8 INR 1.1 APTT 35.0 Sodium Potassium Chloride Carbon Dioxide Anion Gap BUN Creatinine Est GFR ( Amer) Est GFR (Non-Af Amer) POC Glucose (mg/dL) 324 H Random Glucose Calcium 03/16/17 15:50 WBC RBC Hgb Hct MCV MCH MCHC RDW Plt Count PT INR APTT Sodium 132 Potassium 5.2 H Chloride 98 Carbon Dioxide 25 Anion Gap 14 BUN 16 Creatinine 0.8 Est GFR ( Amer) > 60 Est GFR (Non-Af Amer) > 60 POC Glucose (mg/dL) Random Glucose 330 H Calcium 8.8 - EKG Data EKG Interpreted by: Myself Assessment & Plan (1) Gangrene of foot Assessment and Plan: patient has evidence of PAD on CT angiogram. She will need to be scheduled for peripheral angiogram. I discussed the risks and the benefits with the patient. Status: Acute (2) Hyperlipidemia Assessment and Plan: continue statin therapy Status: Chronic (3) Hypertension Assessment and Plan: blood pressure control Status: Chronic (4) Uncontrolled type 2 diabetes mellitus Assessment and Plan: risk factor for PAD Status: Chronic
[2017-03-16] MEDS: Pravastatin Sodium 40 MG TAB PO SCH (21:38)
[2017-03-17] MEDS: Lactated Ringer's 1,000 ML IV SCH ×2 (02:35→23:01)
--- NOTE | 2017-03-17 05:19 | OP ---
PROCEDURE DATE: 03/12/2017 PREOPERATIVE DIAGNOSIS: Gas gangrene of right foot and leg. POSTOPERATIVE DIAGNOSIS: Gas gangrene of right foot and leg. PROCEDURE: Incision and drainage of right foot and leg with removal of all nonviable tissue and bone. SURGEON: Jonatan Kaur DPM. INSTRUCTIONAL TECHNOLOGY COORDINATOR: Mart Vang DPM, PGY-1 and Naye Regan DPM, PGY-2. ANESTHESIOLOGIST: Dr. Lanier. ANESTHESIA: General LMA. INDICATIONS: The patient is a 56-year-old female with the above diagnosis. The patient has exhausted all conservative treatments at this time and now require surgical intervention. The patient signed the consent after careful explanation of risks, benefits, complications, and alternatives for surgical procedure. No guarantees were given or implied. N.p.o. status was confirmed prior to taking the patient to the OR. PREPARATION: The patient was brought into the operating room in a supine position on her hospital bed. Time-out was performed for identification of the correct patient and procedure. The right lower extremity was then prepped and draped in normal sterile saline. No tourniquet was used during the procedure. DESCRIPTION OF PROCEDURE: Attention was first drawn to the dorsum of the patient's right foot on the dorsolateral side of the foot, a longitudinal lazy S incision of approximately 5 cm in length was made down to below the level of subcutaneous tissue using a #15 blade. Next, utilizing both curved hemostat and fingers, blunt dissection was performed down to below the level of deep fascia. The leg and foot were then profusely squeezed in order to try and express any underlying purulence, but none was present. Wound culture was then taken from the site. The incision site was then flushed with 3 L of normal sterile saline using a pulse lavage. Next, utilizing a #15 blade a second longitudinal incision of approximately 5 cm in length was made on the dorsomedial side of the foot down to below the level of subcutaneous tissue. Utilizing both the curved hemostat and fingers, blunt dissection was performed down to below the level of the deep fascia. The leg and foot were then profusely squeezed in order to try and express any underlying purulence, but none was present. Wound culture was then taken from the site. The incision site was then flushed with 3 L of normal sterile saline using a pulse lavage. Attention was then drawn to the plantar side of the foot where an approximately 3.5 x 2.3 x 2.5 cm ulceration was noted using a curved hemostat and Metzenbaum scissors, all nonviable soft tissue and bone was excised from the ulcer base. Bone and soft tissue specimens were sent to pathology for examination. The foot was then profusely squeezed resulting in the expression of approximately 4 mL of purulent drainage. Cultures of the purulent drainage were taken at this time. Incision site was then flushed with 3 L of normal sterile saline using a pulse lavage. Attention was then drawn to the lateral leg and approximately 6 cm incision was made down to below the level of subcutaneous tissue using a #15 blade. Utilizing both the curved hemostat and fingers, blunt dissection was performed down to below the level of deep fascia to the level of the posterior tibia. The leg was then profusely squeezed and noted to try and express any underlying purulence, but none was present. Wound culture was then taken from the site. The incision site was then flushed with 3 L of normal sterile saline using a pulse lavage. Attention was then turned to the medial leg where an approximately 5 cm incision was made down to the below the level of the subcutaneous tissue using #15 blade. Next, utilizing both the curved hemostat and fingers blunt dissection was performed down to the below the level of deep fascia to the level of posterior tibia. The leg was then profusely squeezed in order to try and express any underlying purulence, but none was present. Wound culture was then taken from the site. The incision site was then flushed with 3 L of normal sterile saline using a pulse lavage. All incisions and wound sites of the foot was then packed with one-half inch iodoform packing and all incision sites of the leg were packed with one-quarter inch plain packing. The foot and leg were then dressed with Xeroform 4 x 4 gauze, Kerlix, ABD's, Coban, Srinivasa bandage. POSTOPERATIVE CONDITION: The patient tolerated the anesthesia and procedure well and was escorted to the recovery room with vital signs stable and neurovascular status intact to the right lower extremity. The patient is to remain nonweightbearing to right lower extremity. Podiatry will continue to be follow the patient while in-house. Mart Vang DPM
[2017-03-17] MEDS: Insulin Lispro (humaLOG) 100 Units/ml Inj SC SCH ×2 (07:05→11:24)
[2017-03-17 07:35] LABS: BLOOD UREA NITROGEN 15 mg/dl (7-17); CALCIUM 8.5 mg/dL (8.4-10.2); CARBON DIOXIDE 26 mmol/L (22-30); CHLORIDE 100 mmol/L (98-107); GFR AFRICAN-AMERICAN > 60; GLUCOSE,RANDOM 286 mg/dL (65-105); POTASSIUM 4.5 MMOL/L (3.6-5.0); SODIUM 131 mmol/l (132-148)
[2017-03-17] MEDS: Meropenem 1 GM in Sodium Chloride 0.9% 100 ML IVPB SCH ×2 (09:21→20:38)
[2017-03-17] MEDS: Clindamycin 600 MG in Sodium Chloride 0.9% 100 ML IVPB SCH ×2 (09:27→21:51)
--- NOTE | 2017-03-17 10:37 | CP.PCM.PN ---
Subjective - Date & Time of Evaluation Date of Evaluation: 03/17/17 Time of Evaluation: 10:34 - Subjective Subjective: Podiatry- Dr. Kaur 56 year old female seen at bedside 5 days s/p right foot and leg incision and drainage for gas gangrene. Patient is in NAD and is AAOx3. Patient states that her pain is better than yesterday and that she has more energy than yesterday. Patient is aware that she will be going to [facility] today for peripheral angiogram. Patient denies any further pedal complaints at this time. Patient denies of any F/N/V/C/SOB today. Objective - Vital Signs/Intake and Output Vital Signs (last 24 hours): Temp Pulse Resp BP Pulse Ox 98.7 F 70 18 117/62 97 03/17/17 08:33 03/17/17 08:33 03/17/17 08:33 03/17/17 08:33 03/17/17 08:33 - Medications Medications: Current Medications Acetaminophen (Tylenol 325mg Tab) 650 mg PO Q4 PRN PRN Reason: Pain, Mild (1-3) Dextrose (Dextrose 50% Inj) 0 ml IV STAT PRN; Protocol PRN Reason: Hyglycemia Protocol Dextrose (Glutose 15) 0 gm PO ONCE PRN; Protocol PRN Reason: Hypoglycemia Protocol Docusate Sodium (Colace) 100 mg PO BID [facility] Last Admin: 03/17/17 09:28 Dose: Not Given Ferrous Sulfate (Feosol) 325 mg PO BID [facility] Last Admin: 03/17/17 09:28 Dose: Not Given Glucagon (Glucagen Diagnostic Kit) 0 mg IM STAT PRN; Protocol PRN Reason: Hypoglycemia Protocol Hydromorphone HCl (Dilaudid) 1 mg IVP Q4 PRN PRN Reason: Pain (8-10) Last Admin: 03/16/17 21:52 Dose: 1 mg Clindamycin Phosphate 600 mg/ (Sodium Chloride) 104 mls @ 104 mls/hr IVPB Q12 [facility] Last Admin: 03/17/17 09:27 Dose: 104 mls/hr Lactated Ringer's (Lactated Ringer's) 1,000 mls @ 100 mls/hr IV .Q10H [facility] Last Admin: 03/17/17 02:35 Dose: Not Given Meropenem 1 gm/ Sodium (Chloride) 100 mls @ 100 mls/hr IVPB Q12 [facility] Last Admin: 03/17/17 09:21 Dose: 100 mls/hr Dextrose/Sodium Chloride (Dextrose 5%-0.45% Ns 500 Ml) 1,000 mls @ 100 mls/hr IV .Q10H [facility] Stop: 03/17/17 19:48 Last Admin: 03/17/17 06:58 Dose: Not Given Insulin Human Lispro (Humalog) 0 units SC ACHS [facility] PRN Reason: Protocol Last Admin: 03/17/17 07:05 Dose: 4 u Pravastatin Sodium (Pravachol) 40 mg PO HS [facility] Last Admin: 03/16/17 21:38 Dose: 40 mg Pregabalin (Lyrica) 100 mg PO TID [facility] Last Admin: 03/17/17 09:27 Dose: Not Given Sitagliptin Phosphate (Januvia) 100 mg PO DAILY [facility] Last Admin: 03/17/17 09:29 Dose: Not Given - Labs Labs: 03/16/17 15:50 03/17/17 06:15 PT 11.8 Seconds (9.8-13.1) 03/16/17 15:50 INR 1.1 (0.9-1.2) 03/16/17 15:50 APTT 35.0 Seconds (25.6-37.1) 03/16/17 15:50 - Constitutional Appears: Well, Non-toxic, No Acute Distress - Extremities Exam Additional comments: Vasc: METALLURGICAL SPECIALIST >3 seconds to the digits bilaterally, right leg edema, skin temperature warm to warm from proximal to distal Derm: Open incision sites noted at dorsomedial and dorsolateral foot and at medial and lateral calf. Iodorom packing noted to plantar wound and medial and lateral leg incisions as well as the dorsal foot incisions. No signs of necrosis noted to deep tissue. No malodor, purulent drainage or periwound erythema. Tunneling noted from plantar ulceration site to dorsolateral incision site, no active bleeding noted from the incision site today. No purulent drainage expressed today. Hematoma's noted diffusely across dorsal midfoot Neuro: sensation is grossly diminished bilaterally Ortho: Severe POP to incision sites and posterior leg consistent with surgical procedure - Neurological Exam Neurological Exam: Alert, Awake, Oriented x3 - Psychiatric Exam Psychiatric exam: Normal Affect, Normal Mood Assessment and Plan - Assessment and Plan (Free Text) Assessment: 56 year old female seen 5 days s/p right foot and leg incision and drainage secondary to gas gangrene Plan: Patient seen and evaluated at bedside Patient discussed in detail with attending Dr. Kaur Charts, labs and vitals reviewed; afebrile, WBC 11.4 Dressing changed using Iodoform packing, ABD pads, DSD, Coban and SHLOMO Abdominal angio - no significant stenosis or occlusive disease noted Continue IV abx per ID MRI right foot: OM of calcaneus, cuboid, lateral cuneiform, middle cuneiform, mets 2-5, distal talus, myositis and tendinopathy at proximal and midfoot No surgical intervention planned at this time Patient going to [facility] today for peripheral angiogram Intra op wound cx growth: corynebacterium species Xrays 03/13 show residual gas in dorsal right foot and posterior right leg Patient bleeding has been stabilized and did not lose blood during dressing change Podiatry will continue to follow while patient in house
--- NOTE | 2017-03-17 17:21 | CP.PCM.PN ---
Subjective - Date & Time of Evaluation Date of Evaluation: 03/17/17 Time of Evaluation: 16:00 - Subjective Subjective: peripheral angiogram performed. No sginficant PAD 3 vessel runoff to foot. no endovascular therapy is necessary Objective - Vital Signs/Intake and Output Vital Signs (last 24 hours): Temp Pulse Resp BP Pulse Ox 98.7 F 70 18 117/62 97 03/17/17 08:33 03/17/17 08:33 03/17/17 08:33 03/17/17 08:33 03/17/17 08:33 - Medications Medications: Current Medications Acetaminophen (Tylenol 325mg Tab) 650 mg PO Q4 PRN PRN Reason: Pain, Mild (1-3) Dextrose (Dextrose 50% Inj) 0 ml IV STAT PRN; Protocol PRN Reason: Hyglycemia Protocol Dextrose (Glutose 15) 0 gm PO ONCE PRN; Protocol PRN Reason: Hypoglycemia Protocol Docusate Sodium (Colace) 100 mg PO BID [facility] Last Admin: 03/17/17 09:28 Dose: Not Given Ferrous Sulfate (Feosol) 325 mg PO BID [facility] Last Admin: 03/17/17 09:28 Dose: Not Given Glucagon (Glucagen Diagnostic Kit) 0 mg IM STAT PRN; Protocol PRN Reason: Hypoglycemia Protocol Hydromorphone HCl (Dilaudid) 1 mg IVP Q4 PRN PRN Reason: Pain (8-10) Last Admin: 03/17/17 10:47 Dose: 1 mg Clindamycin Phosphate 600 mg/ (Sodium Chloride) 104 mls @ 104 mls/hr IVPB Q12 [facility] Last Admin: 03/17/17 09:27 Dose: 104 mls/hr Lactated Ringer's (Lactated Ringer's) 1,000 mls @ 100 mls/hr IV .Q10H [facility] Last Admin: 03/17/17 02:35 Dose: Not Given Meropenem 1 gm/ Sodium (Chloride) 100 mls @ 100 mls/hr IVPB Q12 [facility] Last Admin: 03/17/17 09:21 Dose: 100 mls/hr Dextrose/Sodium Chloride (Dextrose 5%-0.45% Ns 500 Ml) 1,000 mls @ 100 mls/hr IV .Q10H [facility] Stop: 03/17/17 19:48 Last Admin: 03/17/17 06:58 Dose: Not Given Insulin Human Regular (Humulin R) 0 units SC ACHS [facility] PRN Reason: Protocol Pravastatin Sodium (Pravachol) 40 mg PO HS [facility] Last Admin: 03/16/17 21:38 Dose: 40 mg Pregabalin (Lyrica) 100 mg PO TID [facility] Last Admin: 03/17/17 13:39 Dose: Not Given Sitagliptin Phosphate (Januvia) 100 mg PO DAILY [facility] Last Admin: 03/17/17 09:29 Dose: Not Given - Labs Labs: 03/16/17 15:50 03/17/17 06:15 PT 11.8 Seconds (9.8-13.1) 03/16/17 15:50 INR 1.1 (0.9-1.2) 03/16/17 15:50 APTT 35.0 Seconds (25.6-37.1) 03/16/17 15:50 Assessment and Plan (1) Gangrene of foot Status: Acute (2) Hyperlipidemia Status: Chronic (3) Hypertension Status: Chronic (4) Uncontrolled type 2 diabetes mellitus Status: Chronic
[2017-03-17] MEDS: Insulin Regular 100 units/ml SC SCH ×2 (19:44→21:52)
[2017-03-17] MEDS: Pravastatin Sodium 40 MG TAB PO SCH (21:53)
--- NOTE | 2017-03-18 07:11 | CP.PCM.PN ---
Subjective - Date & Time of Evaluation Date of Evaluation: 03/17/17 Time of Evaluation: 09:10 - Subjective Subjective: patient seen and examined with attending pain in right leg well controlled with meds Denies Cp, SOB, N/V, abdominal pain, dizziness or other complains afebrile, VS stable WNL Objective - Vital Signs/Intake and Output Vital Signs (last 24 hours): Temp Pulse Resp BP Pulse Ox 99 F 74 19 113/56 L 95 03/18/17 05:25 03/18/17 05:25 03/18/17 05:25 03/18/17 05:25 03/18/17 05:25 - Medications Medications: Current Medications Acetaminophen (Tylenol 325mg Tab) 650 mg PO Q4 PRN PRN Reason: Pain, Mild (1-3) Dextrose (Dextrose 50% Inj) 0 ml IV STAT PRN; Protocol PRN Reason: Hyglycemia Protocol Dextrose (Glutose 15) 0 gm PO ONCE PRN; Protocol PRN Reason: Hypoglycemia Protocol Docusate Sodium (Colace) 100 mg PO BID [facility] Last Admin: 03/17/17 18:42 Dose: 100 mg Ferrous Sulfate (Feosol) 325 mg PO BID [facility] Last Admin: 03/17/17 18:42 Dose: 325 mg Glucagon (Glucagen Diagnostic Kit) 0 mg IM STAT PRN; Protocol PRN Reason: Hypoglycemia Protocol Hydromorphone HCl (Dilaudid) 1 mg IVP Q4 PRN PRN Reason: Pain (8-10) Last Admin: 03/17/17 23:05 Dose: 1 mg Clindamycin Phosphate 600 mg/ (Sodium Chloride) 104 mls @ 104 mls/hr IVPB Q12 [facility] Last Admin: 03/17/17 21:51 Dose: 104 mls/hr Lactated Ringer's (Lactated Ringer's) 1,000 mls @ 100 mls/hr IV .Q10H [facility] Last Admin: 03/17/17 23:01 Dose: Not Given Meropenem 1 gm/ Sodium (Chloride) 100 mls @ 100 mls/hr IVPB Q12 [facility] Last Admin: 03/17/17 20:38 Dose: 100 mls/hr Insulin Human Regular (Humulin R) 0 units SC ACHS [facility] PRN Reason: Protocol Last Admin: 03/17/17 21:52 Dose: 2 unit Pravastatin Sodium (Pravachol) 40 mg PO HS [facility] Last Admin: 03/17/17 21:53 Dose: 40 mg Pregabalin (Lyrica) 100 mg PO TID [facility] Last Admin: 03/17/17 18:42 Dose: 100 mg Sitagliptin Phosphate (Januvia) 100 mg PO DAILY [facility] Last Admin: 03/17/17 09:29 Dose: Not Given - Labs Labs: 03/16/17 15:50 03/17/17 06:15 PT 11.8 Seconds (9.8-13.1) 03/16/17 15:50 INR 1.1 (0.9-1.2) 03/16/17 15:50 APTT 35.0 Seconds (25.6-37.1) 03/16/17 15:50 - Constitutional Appears: No Acute Distress - ENT Exam ENT Exam: Mucous Membranes Moist - Respiratory Exam Respiratory Exam: Clear to Ausculation Bilateral, NORMAL BREATHING PATTERN - Cardiovascular Exam Cardiovascular Exam: REGULAR RHYTHM, +S1, +S2 - GI/Abdominal Exam GI & Abdominal Exam: Soft, Normal Bowel Sounds. absent: Tenderness - Extremities Exam Extremities Exam: absent: Calf Tenderness, Pedal Edema - Neurological Exam Neurological Exam: Alert, Awake, Oriented x3 Assessment and Plan - Assessment and Plan (Free Text) Plan: c/w current medical management DC insulin Lispro by protocol Started on Insulin R by protocol Medium dose consider increase to high dose based on Pt's weight
[2017-03-18] MEDS ORDERED: Insulin Regular 100 units/ml SC SCH (07:13)
--- NOTE | 2017-03-18 07:16 | PQF GENQUE ---
This form is a permanent part of the medical record 03/18/17 Dr Kaur and Podiatry Team, Please clarify all sites and acuity of the osteomyelitis: Acute, Subacute or Chronic in your notes. Admitted with gas gangrene to the right leg and foot 2* to diabetic foot ulceration of right foot. MRI showing osteomyelitis of multiple sites: 2nd to 5th metatarsal bones, calcaneus bone, cuboid bone, distal talar, etc. Clarification of your documentation is requested to better reflect the severity of illness and intensity of treatment of your patient. Indicators present [] Specify: [] [] Specify: [] [] Specify: [] [] Specify: [] Location in the medical record that reflects the above clinical findings: [] Treatment Provided: [] PHYSICIAN'S RESPONSE Based on your medical judgment of the clinical indicators outlined above please clarify the following: [] Practitioner response [] If unable to determine, please check the box, sign and date. Present On Admission (POA) Indicator: [] Present at the time of admission [] Not present at the time of admission [] Clinically Undetermined In responding to this query, please exercise your independent professional judgment. The fact that a question is asked does not imply that any particular answer is desired or expected. Thank you for your clarification on this documentation. If you have any questions please call:ext [phone] * Thank you, Dorothea Jones RN [facility]
[2017-03-18] MEDS: Clindamycin 600 MG in Sodium Chloride 0.9% 100 ML IVPB SCH ×2 (09:16→20:30)
[2017-03-18] MEDS: Meropenem 1 GM in Sodium Chloride 0.9% 100 ML IVPB SCH ×2 (09:20→22:00)
[2017-03-18 09:56] LABS: BASO # 0.1 K/uL (0.0-0.2); BASO % 0.8 % (0.0-2.0); EOS # 0.1 K/uL (0.0-0.7); EOS % 1.1 % (0.0-4.0); HEMATOCRIT 29.2 % (34.0-47.0); LYMPH # 1.4 K/uL (1.0-4.3); LYMPH % 13.1 % (20.0-40.0); MEAN CELL VOLUME 88.2 fl (81.0-99.0); MEAN CORPUSCULAR HGB CONC 31.8 g/dL (33.0-37.0); MEAN PLATELET VOLUME 8.6 fl (7.2-11.7); MONO # 0.8 K/uL (0.0-0.8); MONO % 7.4 % (0.0-10.0); NEUT # 8.5 K/uL (1.8-7.0); NEUT % 77.6 % (50.0-75.0); NRBC % 0.1 % (0.0-0.0); RED CELL DISTRIBUTION WIDTH 16.5 % (11.5-14.5); WHITE BLOOD COUNT 10.9 K/uL (4.8-10.8)
[2017-03-18 10:07] LABS: ALB/GLOB RATIO 0.8 (1.0-2.1); ALKALINE PHOSPHATASE 367 U/L (38-126); ALT/SGPT 28 U/L (9-52); AST/SGOT 20 U/L (14-36); BILIRUBIN,TOTAL 0.5 mg/dl (0.2-1.3); BLOOD UREA NITROGEN 16 mg/dl (7-17); CALCIUM 8.4 mg/dL (8.4-10.2); CARBON DIOXIDE 27 mmol/L (22-30); CHLORIDE 96 mmol/L (98-107); GFR AFRICAN-AMERICAN > 60; SODIUM 130 mmol/l (132-148); TOTAL PROTEIN 6.9 G/DL (6.3-8.2)
--- NOTE | 2017-03-18 10:10 | CP.PCM.PN ---
Subjective - Date & Time of Evaluation Date of Evaluation: 03/18/17 Time of Evaluation: 10:08 - Subjective Subjective: Patinet is doing better Has less pain Has no fever Angio did not show significant PAD Objective - Vital Signs/Intake and Output Vital Signs (last 24 hours): Temp Pulse Resp BP Pulse Ox 99 F 74 19 113/56 L 95 03/18/17 05:25 03/18/17 05:25 03/18/17 05:25 03/18/17 05:25 03/18/17 05:25 - Medications Medications: Current Medications Acetaminophen (Tylenol 325mg Tab) 650 mg PO Q4 PRN PRN Reason: Pain, Mild (1-3) Dextrose (Dextrose 50% Inj) 0 ml IV STAT PRN; Protocol PRN Reason: Hyglycemia Protocol Dextrose (Glutose 15) 0 gm PO ONCE PRN; Protocol PRN Reason: Hypoglycemia Protocol Docusate Sodium (Colace) 100 mg PO BID [facility] Last Admin: 03/18/17 09:17 Dose: Not Given Ferrous Sulfate (Feosol) 325 mg PO BID [facility] Last Admin: 03/18/17 09:18 Dose: 325 mg Glucagon (Glucagen Diagnostic Kit) 0 mg IM STAT PRN; Protocol PRN Reason: Hypoglycemia Protocol Hydromorphone HCl (Dilaudid) 1 mg IVP Q4 PRN PRN Reason: Pain (8-10) Last Admin: 03/18/17 07:31 Dose: 1 mg Clindamycin Phosphate 600 mg/ (Sodium Chloride) 104 mls @ 104 mls/hr IVPB Q12 [facility] Last Admin: 03/18/17 09:16 Dose: 104 mls/hr Lactated Ringer's (Lactated Ringer's) 1,000 mls @ 100 mls/hr IV .Q10H [facility] Last Admin: 03/17/17 23:01 Dose: Not Given Meropenem 1 gm/ Sodium (Chloride) 100 mls @ 100 mls/hr IVPB Q12 [facility] Last Admin: 03/18/17 09:20 Dose: 100 mls/hr Insulin Human Regular (Humulin R) 0 units SC ACHS [facility] PRN Reason: Protocol Pravastatin Sodium (Pravachol) 40 mg PO HS [facility] Last Admin: 03/17/17 21:53 Dose: 40 mg Pregabalin (Lyrica) 100 mg PO TID [facility] Last Admin: 03/18/17 09:22 Dose: 100 mg Sitagliptin Phosphate (Januvia) 100 mg PO DAILY [facility] Last Admin: 03/18/17 09:19 Dose: 100 mg - Labs Labs: 03/18/17 09:50 03/17/17 06:15 PT 11.8 Seconds (9.8-13.1) 03/16/17 15:50 INR 1.1 (0.9-1.2) 03/16/17 15:50 APTT 35.0 Seconds (25.6-37.1) 03/16/17 15:50 - Head Exam Head Exam: NORMAL INSPECTION - Eye Exam Eye Exam: Normal appearance - ENT Exam ENT Exam: Mucous Membranes Moist - Respiratory Exam Respiratory Exam: Clear to Ausculation Bilateral - Cardiovascular Exam Cardiovascular Exam: REGULAR RHYTHM - GI/Abdominal Exam GI & Abdominal Exam: Normal Bowel Sounds - Neurological Exam Neurological Exam: Awake, Oriented x3 Assessment and Plan (1) Gangrene of foot Status: Acute (2) Bleeding Status: Acute (3) Uncontrolled type 2 diabetes mellitus Status: Chronic (4) Osteomyelitis of foot Status: Acute - Assessment and Plan (Free Text) Plan: cont meds Cont tx Cont PT wound care will get case mgt re plans of care fpc iv / wound care temitope subacute setting. adjust insulin coverage
[2017-03-18 10:11] LABS: GLUCOSE,RANDOM 410 mg/dL (65-105)
--- NOTE | 2017-03-18 10:46 | CP.PCM.PN ---
Subjective - Date & Time of Evaluation Date of Evaluation: 03/18/17 Time of Evaluation: 10:43 - Subjective Subjective: Podiatry- Dr. Kaur 56 year old female seen at bedside 6 days s/p right foot and leg incision and drainage for gas gangrene. Patient is in NAD and is AAOx3. Patient states that her pain is better than yesterday and that she has more energy than yesterday. Patient states that peripheral angiogram that she had done with Dr. Murillo at [facility] yesterday went well. Patient denies any further pedal complaints at this time. Patient denies of any F/N/V/C/SOB today. Objective - Vital Signs/Intake and Output Vital Signs (last 24 hours): Temp Pulse Resp BP Pulse Ox 99 F 74 19 113/56 L 95 03/18/17 05:25 03/18/17 05:25 03/18/17 05:25 03/18/17 05:25 03/18/17 05:25 - Medications Medications: Current Medications Acetaminophen (Tylenol 325mg Tab) 650 mg PO Q4 PRN PRN Reason: Pain, Mild (1-3) Dextrose (Dextrose 50% Inj) 0 ml IV STAT PRN; Protocol PRN Reason: Hyglycemia Protocol Dextrose (Glutose 15) 0 gm PO ONCE PRN; Protocol PRN Reason: Hypoglycemia Protocol Docusate Sodium (Colace) 100 mg PO BID [facility] Last Admin: 03/18/17 09:17 Dose: Not Given Ferrous Sulfate (Feosol) 325 mg PO BID [facility] Last Admin: 03/18/17 09:18 Dose: 325 mg Glucagon (Glucagen Diagnostic Kit) 0 mg IM STAT PRN; Protocol PRN Reason: Hypoglycemia Protocol Hydromorphone HCl (Dilaudid) 1 mg IVP Q4 PRN PRN Reason: Pain (8-10) Last Admin: 03/18/17 07:31 Dose: 1 mg Clindamycin Phosphate 600 mg/ (Sodium Chloride) 104 mls @ 104 mls/hr IVPB Q12 [facility] Last Admin: 03/18/17 09:16 Dose: 104 mls/hr Lactated Ringer's (Lactated Ringer's) 1,000 mls @ 100 mls/hr IV .Q10H [facility] Last Admin: 03/17/17 23:01 Dose: Not Given Meropenem 1 gm/ Sodium (Chloride) 100 mls @ 100 mls/hr IVPB Q12 [facility] Last Admin: 03/18/17 09:20 Dose: 100 mls/hr Insulin Human Regular (Humulin R) 0 units SC ACHS [facility] PRN Reason: Protocol Pravastatin Sodium (Pravachol) 40 mg PO HS [facility] Last Admin: 03/17/17 21:53 Dose: 40 mg Pregabalin (Lyrica) 100 mg PO TID [facility] Last Admin: 03/18/17 09:22 Dose: 100 mg Sitagliptin Phosphate (Januvia) 100 mg PO DAILY [facility] Last Admin: 03/18/17 09:19 Dose: 100 mg - Labs Labs: 03/18/17 09:50 03/18/17 09:50 PT 11.8 Seconds (9.8-13.1) 03/16/17 15:50 INR 1.1 (0.9-1.2) 03/16/17 15:50 APTT 35.0 Seconds (25.6-37.1) 03/16/17 15:50 - Constitutional Appears: Well, Non-toxic, No Acute Distress - Extremities Exam Additional comments: 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 Iodorom packing noted to plantar wound and medial and lateral leg incisions as well as the dorsal foot incisions. No signs of necrosis noted to deep tissue. No malodor, purulent drainage or periwound erythema. Tunneling noted from plantar ulceration site to dorsolateral incision site, no active bleeding noted from the incision site today. No purulent drainage expressed today. Superficial hematoma's noted diffusely across dorsal midfoot Neuro: sensation is grossly diminished bilaterally Ortho: Severe POP to incision sites and posterior leg consistent with surgical procedure - Neurological Exam Neurological Exam: Alert, Awake, Oriented x3 - Psychiatric Exam Psychiatric exam: Normal Affect, Normal Mood Assessment and Plan - Assessment and Plan (Free Text) Assessment: 56 year old female seen 5 days s/p right foot and leg incision and drainage secondary to gas gangrene Plan: Patient seen and evaluated at bedside with attending Dr. Kaur Charts, labs and vitals reviewed; afebrile, WBC 10.9 Dressing changed using Iodoform packing, ABD pads, DSD, and SHLOMO Continue IV abx per ID Intra op wound cx growth: corynebacterium species Xrays 03/13 show possible residual gas in dorsal right foot and posterior right leg MRI right foot: OM of calcaneus, cuboid, lateral cuneiform, middle cuneiform, mets 2-5, distal talus, myositis and tendinopathy at proximal and midfoot Abdominal angio - no significant stenosis or occlusive disease noted Peripheral angio - No signs of PAD, three vessel runoff present Dr. Kaur suggests right leg BKA at this time Patient made aware and agrees Will contact Dr. Kelly to set up date and time for surgery Podiatry will continue to follow while patient in house
--- NOTE | 2017-03-18 11:02 | CP.PCM.PN ---
Subjective - Date & Time of Evaluation Date of Evaluation: 03/18/17 Time of Evaluation: 10:54 - Subjective Subjective: pt seen on rounds .Discussed condition of foot with extensive Om and patient needs BKA right . Decision is based on amount of OM in foot ,Patients inability to stop activity on foot and threat of continued sepsis .Case was discussed with Dr Verde who agrees this is safest route for patient who has had multiple admissions for foot with iv antibiotics and home IV infusions not without complications .Patient agrees to BKA at this time . Vascular surgical consult called. Objective - Vital Signs/Intake and Output Vital Signs (last 24 hours): Temp Pulse Resp BP Pulse Ox 99 F 74 19 113/56 L 95 03/18/17 05:25 03/18/17 05:25 03/18/17 05:25 03/18/17 05:25 03/18/17 05:25 - Medications Medications: Current Medications Acetaminophen (Tylenol 325mg Tab) 650 mg PO Q4 PRN PRN Reason: Pain, Mild (1-3) Dextrose (Dextrose 50% Inj) 0 ml IV STAT PRN; Protocol PRN Reason: Hyglycemia Protocol Dextrose (Glutose 15) 0 gm PO ONCE PRN; Protocol PRN Reason: Hypoglycemia Protocol Docusate Sodium (Colace) 100 mg PO BID [facility] Last Admin: 03/18/17 09:17 Dose: Not Given Ferrous Sulfate (Feosol) 325 mg PO BID [facility] Last Admin: 03/18/17 09:18 Dose: 325 mg Glucagon (Glucagen Diagnostic Kit) 0 mg IM STAT PRN; Protocol PRN Reason: Hypoglycemia Protocol Hydromorphone HCl (Dilaudid) 1 mg IVP Q4 PRN PRN Reason: Pain (8-10) Last Admin: 03/18/17 07:31 Dose: 1 mg Clindamycin Phosphate 600 mg/ (Sodium Chloride) 104 mls @ 104 mls/hr IVPB Q12 [facility] Last Admin: 03/18/17 09:16 Dose: 104 mls/hr Lactated Ringer's (Lactated Ringer's) 1,000 mls @ 100 mls/hr IV .Q10H [facility] Last Admin: 03/17/17 23:01 Dose: Not Given Meropenem 1 gm/ Sodium (Chloride) 100 mls @ 100 mls/hr IVPB Q12 [facility] Last Admin: 03/18/17 09:20 Dose: 100 mls/hr Insulin Human Regular (Humulin R) 0 units SC ACHS [facility] PRN Reason: Protocol Pravastatin Sodium (Pravachol) 40 mg PO HS [facility] Last Admin: 03/17/17 21:53 Dose: 40 mg Pregabalin (Lyrica) 100 mg PO TID [facility] Last Admin: 03/18/17 09:22 Dose: 100 mg Sitagliptin Phosphate (Januvia) 100 mg PO DAILY [facility] Last Admin: 03/18/17 09:19 Dose: 100 mg - Labs Labs: 03/18/17 09:50 03/18/17 09:50 PT 11.8 Seconds (9.8-13.1) 03/16/17 15:50 INR 1.1 (0.9-1.2) 03/16/17 15:50 APTT 35.0 Seconds (25.6-37.1) 03/16/17 15:50
[2017-03-18] MEDS: Insulin Regular 100 units/ml SC SCH ×3 (12:13→22:01)
[2017-03-18] MEDS: Pravastatin Sodium 40 MG TAB PO SCH (21:21)
[2017-03-19] MEDS: Insulin Regular 100 units/ml SC SCH ×4 (07:39→22:14)
--- NOTE | 2017-03-19 07:59 | CP.PCM.PN ---
Subjective - Date & Time of Evaluation Date of Evaluation: 03/19/17 Time of Evaluation: 06:45 - Subjective Subjective: Podiatry- Dr. Kaur 56 year old female seen at bedside 7 days s/p right foot and leg incision and drainage for gas gangrene. Patient is in NAD and is AAOx3. Patient states that her pain is better than yesterday and that she has more energy than yesterday. Patient denies any further pedal complaints at this time. Patient denies of any F/N/V/C/SOB today. Objective - Vital Signs/Intake and Output Vital Signs (last 24 hours): Temp Pulse Resp BP Pulse Ox 97.5 F L 70 18 124/56 L 96 03/19/17 00:03 03/19/17 00:03 03/19/17 00:03 03/19/17 00:03 03/19/17 00:03 - Medications Medications: Current Medications Acetaminophen (Tylenol 325mg Tab) 650 mg PO Q4 PRN PRN Reason: Pain, Mild (1-3) Dextrose (Dextrose 50% Inj) 0 ml IV STAT PRN; Protocol PRN Reason: Hyglycemia Protocol Dextrose (Glutose 15) 0 gm PO ONCE PRN; Protocol PRN Reason: Hypoglycemia Protocol Docusate Sodium (Colace) 100 mg PO BID [facility] Last Admin: 03/18/17 09:17 Dose: Not Given Ferrous Sulfate (Feosol) 325 mg PO BID [facility] Last Admin: 03/18/17 17:02 Dose: 325 mg Glucagon (Glucagen Diagnostic Kit) 0 mg IM STAT PRN; Protocol PRN Reason: Hypoglycemia Protocol Hydromorphone HCl (Dilaudid) 1 mg IVP Q4 PRN PRN Reason: Pain (8-10) Last Admin: 03/19/17 07:17 Dose: 1 mg Clindamycin Phosphate 600 mg/ (Sodium Chloride) 104 mls @ 104 mls/hr IVPB Q12 [facility] Last Admin: 03/18/17 20:30 Dose: 104 mls/hr Lactated Ringer's (Lactated Ringer's) 1,000 mls @ 100 mls/hr IV .Q10H [facility] Last Admin: 03/17/17 23:01 Dose: Not Given Meropenem 1 gm/ Sodium (Chloride) 100 mls @ 100 mls/hr IVPB Q12 [facility] Last Admin: 03/18/17 22:00 Dose: 100 mls/hr Insulin Human Regular (Humulin R) 0 units SC ACHS [facility] PRN Reason: Protocol Last Admin: 03/19/17 07:39 Dose: 9 u Pravastatin Sodium (Pravachol) 40 mg PO HS [facility] Last Admin: 03/18/17 21:21 Dose: 40 mg Pregabalin (Lyrica) 100 mg PO TID [facility] Last Admin: 03/18/17 17:07 Dose: 100 mg Sitagliptin Phosphate (Januvia) 100 mg PO DAILY [facility] Last Admin: 03/18/17 09:19 Dose: 100 mg - Labs Labs: 03/18/17 09:50 03/18/17 09:50 PT 11.8 Seconds (9.8-13.1) 03/16/17 15:50 INR 1.1 (0.9-1.2) 03/16/17 15:50 APTT 35.0 Seconds (25.6-37.1) 03/16/17 15:50 - Constitutional Appears: Well, Non-toxic, No Acute Distress - Extremities Exam Additional comments: 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 Iodorom packing noted to plantar wound and medial and lateral leg incisions as well as the dorsal foot incisions. No signs of necrosis noted to deep tissue. No malodor, purulent drainage or periwound erythema. Tunneling noted from plantar ulceration site to dorsolateral incision site, no active bleeding noted from the incision site today. No purulent drainage expressed today. Superficial hematoma's noted diffusely across dorsal midfoot Neuro: sensation is grossly diminished bilaterally Ortho: POP to incision sites and posterior leg consistent with surgical procedure - Neurological Exam Neurological Exam: Alert, Awake, Oriented x3 - Psychiatric Exam Psychiatric exam: Normal Affect, Normal Mood Assessment and Plan - Assessment and Plan (Free Text) Assessment: 56 year old female seen 7 days s/p right foot and leg incision and drainage secondary to gas gangrene Plan: Patient seen and evaluated at bedside Charts, labs and vitals reviewed Dressing changed using Iodoform packing, ABD pads, DSD, and SHLOMO Continue IV abx per ID Intra op wound cx growth: corynebacterium species Xrays 03/13 show possible residual gas in dorsal right foot and posterior right leg MRI right foot: OM of calcaneus, cuboid, lateral cuneiform, middle cuneiform, mets 2-5, distal talus, myositis and tendinopathy at proximal and midfoot Abdominal angio - no significant stenosis or occlusive disease noted Peripheral angio - No signs of PAD, three vessel runoff present Dr. Kaur suggests right leg BKA at this time Patient made aware and agrees Dr. Kaur is coordinating with Dr. Rodgers, who will be performing the BKA Time and date of surgery currently TBD Podiatry will continue to follow while patient in house
--- NOTE | 2017-03-19 09:47 | CP.PCM.PN ---
Subjective - Date & Time of Evaluation Date of Evaluation: 03/19/17 Time of Evaluation: 09:44 - Subjective Subjective: Patient remains stable Wound is not improving well. Dr Kaur had discussed with the patient yesterday re possible amputation. BKA Patient claims that sh understands the whole thing and agrees with the idea. Currently on insulin high dose. Objective - Vital Signs/Intake and Output Vital Signs (last 24 hours): Temp Pulse Resp BP Pulse Ox 97.9 F 73 18 122/67 96 03/19/17 08:45 03/19/17 08:45 03/19/17 08:45 03/19/17 08:45 03/19/17 08:45 - Medications Medications: Current Medications Acetaminophen (Tylenol 325mg Tab) 650 mg PO Q4 PRN PRN Reason: Pain, Mild (1-3) Dextrose (Dextrose 50% Inj) 0 ml IV STAT PRN; Protocol PRN Reason: Hyglycemia Protocol Dextrose (Glutose 15) 0 gm PO ONCE PRN; Protocol PRN Reason: Hypoglycemia Protocol Docusate Sodium (Colace) 100 mg PO BID [facility] Last Admin: 03/18/17 09:17 Dose: Not Given Ferrous Sulfate (Feosol) 325 mg PO BID [facility] Last Admin: 03/18/17 17:02 Dose: 325 mg Glucagon (Glucagen Diagnostic Kit) 0 mg IM STAT PRN; Protocol PRN Reason: Hypoglycemia Protocol Hydromorphone HCl (Dilaudid) 1 mg IVP Q4 PRN PRN Reason: Pain (8-10) Last Admin: 03/19/17 07:17 Dose: 1 mg Clindamycin Phosphate 600 mg/ (Sodium Chloride) 104 mls @ 104 mls/hr IVPB Q12 [facility] Last Admin: 03/18/17 20:30 Dose: 104 mls/hr Lactated Ringer's (Lactated Ringer's) 1,000 mls @ 100 mls/hr IV .Q10H [facility] Last Admin: 03/17/17 23:01 Dose: Not Given Meropenem 1 gm/ Sodium (Chloride) 100 mls @ 100 mls/hr IVPB Q12 [facility] Last Admin: 03/18/17 22:00 Dose: 100 mls/hr Insulin Human Regular (Humulin R) 0 units SC ACHS [facility] PRN Reason: Protocol Last Admin: 03/19/17 07:39 Dose: 9 u Pravastatin Sodium (Pravachol) 40 mg PO HS [facility] Last Admin: 03/18/17 21:21 Dose: 40 mg Pregabalin (Lyrica) 100 mg PO TID [facility] Last Admin: 03/18/17 17:07 Dose: 100 mg Sitagliptin Phosphate (Januvia) 100 mg PO DAILY [facility] Last Admin: 03/18/17 09:19 Dose: 100 mg - Labs Labs: 03/18/17 09:50 03/18/17 09:50 PT 11.8 Seconds (9.8-13.1) 03/16/17 15:50 INR 1.1 (0.9-1.2) 03/16/17 15:50 APTT 35.0 Seconds (25.6-37.1) 03/16/17 15:50 - Head Exam Head Exam: NORMAL INSPECTION - Eye Exam Eye Exam: Normal appearance - ENT Exam ENT Exam: Mucous Membranes Moist - Respiratory Exam Respiratory Exam: Clear to Ausculation Bilateral - Cardiovascular Exam Cardiovascular Exam: REGULAR RHYTHM - GI/Abdominal Exam GI & Abdominal Exam: Normal Bowel Sounds - Neurological Exam Neurological Exam: Awake, Oriented x3 Assessment and Plan (1) Gangrene of foot Status: Acute (2) Bleeding Status: Acute (3) Uncontrolled type 2 diabetes mellitus Status: Chronic (4) Osteomyelitis of foot Status: Acute - Assessment and Plan (Free Text) Plan: add metformin Vascular surgeon lio. Cont meds cont wound care. discussed with patient trevor CORTES
[2017-03-19] MEDS: Clindamycin 600 MG in Sodium Chloride 0.9% 100 ML IVPB SCH ×2 (09:52→20:30)
[2017-03-19] MEDS: Meropenem 1 GM in Sodium Chloride 0.9% 100 ML IVPB SCH ×2 (10:04→21:30)
--- NOTE | 2017-03-19 14:51 | CP.PCM.CON ---
History of Present Illness - History of Present Illness History of Present Illness: Vascular surgery 56 F with PMH of DM, CHF, chronic foot pain and PSH of L CEA and R 3rd digit amputation admitted for R foot gangrene and Osteomyelitis. Pt reports that she had R foot pain for a long time and had seen apparel cutter. Reports R foot swelling , redness, pain, difficulty ambulating and ulceration. She also had abscess of lateral aspect of R LE and was drained. MRI shows severe multiple osteomyelitis of R foot. CTA reads 50% b/l SFA stenosis and 50% R ant tib stenosis. angio was performed with Dr. Murillo and notes that no significant PAD with 3 vessels runoff to foot. Review of Systems - Review of Systems Review of Systems: See HPI Past Patient History - Infectious Disease Hx of Infectious Diseases: None - Past Medical History & Family History Past Medical History?: Yes - Past Social History Smoking Status: Heavy Smoker > 10 Cigarettes Daily - CARDIAC Hx Hypercholesterolemia: Yes Hx Hypertension: Yes - PULMONARY Hx Asthma: Yes - NEUROLOGICAL Hx Neurological Disorder: No - HEENT Other/Comment: uses eyeglasses - RENAL Hx Chronic Kidney Disease: No - ENDOCRINE/METABOLIC Hx Diabetes Mellitus Type 2: Yes - HEMATOLOGICAL/ONCOLOGICAL Hx Blood Disorders: No - INTEGUMENTARY Hx Dermatological Problems: Yes - MUSCULOSKELETAL/RHEUMATOLOGICAL Hx Musculoskeletal Disorders: Yes - GASTROINTESTINAL Hx Gastrointestinal Disorders: No - GENITOURINARY/GYNECOLOGICAL Hx Genitourinary Disorders: No - PSYCHIATRIC Hx Anxiety: Yes Hx Depression: Yes Hx Substance Use: No - SURGICAL HISTORY Hx Surgeries: Yes Hx Appendectomy: Yes Hx Carotid Endarterectomy: Yes Hx Cholecystectomy: Yes Other/Comment: I@D rt. foot - ANESTHESIA Hx Anesthesia: Yes Hx Anesthesia Reactions: No Hx Malignant Hyperthermia: No Meds Allergies/Adverse Reactions: Allergies Allergy/AdvReac Type Severity Reaction Status Date / Time vancomycin AdvReac ITCHING Verified 05/22/16 13:09 - Medications Medications: Current Medications Acetaminophen (Tylenol 325mg Tab) 650 mg PO Q4 PRN PRN Reason: Pain, Mild (1-3) Dextrose (Dextrose 50% Inj) 0 ml IV STAT PRN; Protocol PRN Reason: Hyglycemia Protocol Dextrose (Glutose 15) 0 gm PO ONCE PRN; Protocol PRN Reason: Hypoglycemia Protocol Docusate Sodium (Colace) 100 mg PO BID [facility] Last Admin: 03/19/17 09:53 Dose: Not Given Ferrous Sulfate (Feosol) 325 mg PO BID [facility] Last Admin: 03/19/17 09:54 Dose: 325 mg Glucagon (Glucagen Diagnostic Kit) 0 mg IM STAT PRN; Protocol PRN Reason: Hypoglycemia Protocol Hydromorphone HCl (Dilaudid) 1 mg IVP Q4 PRN PRN Reason: Pain (8-10) Last Admin: 03/19/17 07:17 Dose: 1 mg Clindamycin Phosphate 600 mg/ (Sodium Chloride) 104 mls @ 104 mls/hr IVPB Q12 [facility] Last Admin: 03/19/17 09:52 Dose: 104 mls/hr Lactated Ringer's (Lactated Ringer's) 1,000 mls @ 100 mls/hr IV .Q10H [facility] Last Admin: 03/17/17 23:01 Dose: Not Given Meropenem 1 gm/ Sodium (Chloride) 100 mls @ 100 mls/hr IVPB Q12 [facility] Last Admin: 03/19/17 10:04 Dose: 100 mls/hr Insulin Human Regular (Humulin R) 0 units SC ACHS [facility] PRN Reason: Protocol Last Admin: 03/19/17 13:16 Dose: 6 u Metformin HCl (Glucophage) 1,000 mg PO BIDWM [facility] Last Admin: 03/19/17 13:17 Dose: 1,000 mg Pravastatin Sodium (Pravachol) 40 mg PO HS [facility] Last Admin: 03/18/17 21:21 Dose: 40 mg Pregabalin (Lyrica) 100 mg PO TID [facility] Last Admin: 03/18/17 17:07 Dose: 100 mg Sitagliptin Phosphate (Januvia) 100 mg PO DAILY [facility] Last Admin: 03/19/17 09:55 Dose: 100 mg Physical Exam - Constitutional Appears: No Acute Distress - Head Exam Head Exam: ATRAUMATIC, NORMAL INSPECTION, NORMOCEPHALIC - Eye Exam Eye Exam: EOMI, Normal appearance, PERRL Pupil Exam: NORMAL ACCOMODATION, PERRL - ENT Exam ENT Exam: Mucous Membranes Moist, Normal Exam - Neck Exam Neck exam: Positive for: Full Rom. Negative for: Lymphadenopathy Additional comments: well healed L wound - Respiratory Exam Respiratory Exam: NORMAL BREATHING PATTERN - Cardiovascular Exam Cardiovascular Exam: REGULAR RHYTHM, +S1 - GI/Abdominal Exam GI & Abdominal Exam: Soft. absent: Distended - Extremities Exam Extremities exam: Positive for: joint swelling, pedal edema, tenderness. Negative for: full ROM, normal capillary refill, normal inspection Additional comments: R foot and LE dressing C/D/I. toes swollen. Eryhtematous. TTP. 3rd digit amputation - Neurological Exam Neurological exam: Alert, CN II-XII Intact, Oriented x3, Reflexes Normal - Psychiatric Exam Psychiatric exam: Normal Affect, Normal Mood - Skin Skin Exam: Dry, Erythema, Warm Results - Vital Signs Recent Vital Signs: Last Vital Signs Temp 97.9 F 03/19/17 08:45 Pulse 73 03/19/17 08:45 Resp 18 03/19/17 08:45 BP 122/67 03/19/17 08:45 Pulse Ox 96 03/19/17 08:45 - Labs Result Diagrams: 03/18/17 09:50 03/18/17 09:50 Labs: Laboratory Results - last 24 hr 03/18/17 03/18/17 03/19/17 15:43 20:53 05:24 POC Glucose (mg/dL) 405 H* 345 H 271 H 03/19/17 11:32 POC Glucose (mg/dL) 275 H Assessment & Plan - Assessment and Plan (Free Text) Assessment: R foot osteomyelitis MRI: severe multiple osteomyelitis of R foot. Angio: No sig PAD of R LE -Possible R BKA for osteomelitis -Cont ABX -Medical management -Glucose control Will DW attending
--- NOTE | 2017-03-19 21:28 | CP.PCM.PN ---
Subjective - Date & Time of Evaluation Date of Evaluation: 03/19/17 Time of Evaluation: 21:24 - Subjective Subjective: I D NOTE MRI ,LABS ,CONSULTS REVIEWED IN VIEW OF THE ABOVE ,POOR DIABETIC CONTROL AND PATIENTs NON COMPLIANCE C ANTIBIOTICS IN PAST AGREE C POSSIBLE BKA Objective - Vital Signs/Intake and Output Vital Signs (last 24 hours): Temp Pulse Resp BP Pulse Ox 97.4 F L 72 20 134/68 97 03/19/17 16:07 03/19/17 16:07 03/19/17 16:07 03/19/17 16:07 03/19/17 16:07 - Medications Medications: Current Medications Acetaminophen (Tylenol 325mg Tab) 650 mg PO Q4 PRN PRN Reason: Pain, Mild (1-3) Dextrose (Dextrose 50% Inj) 0 ml IV STAT PRN; Protocol PRN Reason: Hyglycemia Protocol Dextrose (Glutose 15) 0 gm PO ONCE PRN; Protocol PRN Reason: Hypoglycemia Protocol Docusate Sodium (Colace) 100 mg PO BID [facility] Last Admin: 03/19/17 17:00 Dose: Not Given Ferrous Sulfate (Feosol) 325 mg PO BID [facility] Last Admin: 03/19/17 17:01 Dose: 325 mg Glucagon (Glucagen Diagnostic Kit) 0 mg IM STAT PRN; Protocol PRN Reason: Hypoglycemia Protocol Hydromorphone HCl (Dilaudid) 1 mg IVP Q4 PRN PRN Reason: Pain (8-10) Last Admin: 03/19/17 17:15 Dose: 1 mg Clindamycin Phosphate 600 mg/ (Sodium Chloride) 104 mls @ 104 mls/hr IVPB Q12 [facility] Last Admin: 03/19/17 20:30 Dose: 104 mls/hr Lactated Ringer's (Lactated Ringer's) 1,000 mls @ 100 mls/hr IV .Q10H [facility] Last Admin: 03/17/17 23:01 Dose: Not Given Meropenem 1 gm/ Sodium (Chloride) 100 mls @ 100 mls/hr IVPB Q12 [facility] Last Admin: 03/19/17 10:04 Dose: 100 mls/hr Insulin Human Regular (Humulin R) 0 units SC ACHS [facility] PRN Reason: Protocol Last Admin: 03/19/17 17:04 Dose: 12 u Metformin HCl (Glucophage) 1,000 mg PO BIDWM [facility] Last Admin: 03/19/17 17:01 Dose: 1,000 mg Pravastatin Sodium (Pravachol) 40 mg PO HS [facility] Last Admin: 03/18/17 21:21 Dose: 40 mg Pregabalin (Lyrica) 100 mg PO TID [facility] Last Admin: 03/19/17 17:10 Dose: 100 mg Sitagliptin Phosphate (Januvia) 100 mg PO DAILY [facility] Last Admin: 03/19/17 09:55 Dose: 100 mg - Labs Labs: 03/18/17 09:50 03/18/17 09:50 PT 11.8 Seconds (9.8-13.1) 03/16/17 15:50 INR 1.1 (0.9-1.2) 03/16/17 15:50 APTT 35.0 Seconds (25.6-37.1) 03/16/17 15:50
[2017-03-19] MEDS: Pravastatin Sodium 40 MG TAB PO SCH (21:52)
--- NOTE | 2017-03-20 06:40 | CP.PCM.PN ---
<Nadiya Ferrara - Last Filed: 03/20/17 13:30> Subjective - Date & Time of Evaluation Date of Evaluation: 03/20/17 Time of Evaluation: 06:40 - Subjective Subjective: 56 year old female seen at bedside 8 days s/p right foot and leg incision and drainage for gas gangrene. Patient is in NAD and is AAOx3 at this time. Patient states the pain is being controlled by Dilaudid and given regularly. Pt states she slept well. Patient denies any further pedal complaints at this time. Patient denies of any F/N/V/C/SOB today. Objective - Vital Signs/Intake and Output Vital Signs (last 24 hours): Temp Pulse Resp BP Pulse Ox 97.7 F 77 18 121/60 97 03/20/17 00:33 03/20/17 00:33 03/20/17 00:33 03/20/17 00:33 03/20/17 00:33 - Medications Medications: Current Medications Acetaminophen (Tylenol 325mg Tab) 650 mg PO Q4 PRN PRN Reason: Pain, Mild (1-3) Dextrose (Dextrose 50% Inj) 0 ml IV STAT PRN; Protocol PRN Reason: Hyglycemia Protocol Dextrose (Glutose 15) 0 gm PO ONCE PRN; Protocol PRN Reason: Hypoglycemia Protocol Docusate Sodium (Colace) 100 mg PO BID [facility] Last Admin: 03/19/17 17:00 Dose: Not Given Ferrous Sulfate (Feosol) 325 mg PO BID [facility] Last Admin: 03/19/17 17:01 Dose: 325 mg Glucagon (Glucagen Diagnostic Kit) 0 mg IM STAT PRN; Protocol PRN Reason: Hypoglycemia Protocol Hydromorphone HCl (Dilaudid) 1 mg IVP Q4 PRN PRN Reason: Pain (8-10) Last Admin: 03/20/17 06:30 Dose: 1 mg Clindamycin Phosphate 600 mg/ (Sodium Chloride) 104 mls @ 104 mls/hr IVPB Q12 [facility] Last Admin: 03/19/17 20:30 Dose: 104 mls/hr Lactated Ringer's (Lactated Ringer's) 1,000 mls @ 100 mls/hr IV .Q10H [facility] Last Admin: 03/17/17 23:01 Dose: Not Given Meropenem 1 gm/ Sodium (Chloride) 100 mls @ 100 mls/hr IVPB Q12 [facility] Last Admin: 03/19/17 21:30 Dose: 100 mls/hr Insulin Human Regular (Humulin R) 0 units SC ACHS [facility] PRN Reason: Protocol Last Admin: 03/19/17 22:14 Dose: 9 u Metformin HCl (Glucophage) 1,000 mg PO BIDWM [facility] Last Admin: 03/19/17 17:01 Dose: 1,000 mg Pravastatin Sodium (Pravachol) 40 mg PO HS [facility] Last Admin: 03/19/17 21:52 Dose: 40 mg Pregabalin (Lyrica) 100 mg PO TID [facility] Last Admin: 03/19/17 17:10 Dose: 100 mg Sitagliptin Phosphate (Januvia) 100 mg PO DAILY [facility] Last Admin: 03/19/17 09:55 Dose: 100 mg - Labs Labs: 03/18/17 09:50 03/18/17 09:50 PT 11.8 Seconds (9.8-13.1) 03/16/17 15:50 INR 1.1 (0.9-1.2) 03/16/17 15:50 APTT 35.0 Seconds (25.6-37.1) 03/16/17 15:50 - Constitutional Appears: Well, Non-toxic, No Acute Distress - Extremities Exam Additional comments: Vasc: CFT >3 seconds to the digits bilaterally, right leg edema noted from mid calf extending distally to digits, skin temperature warm to warm from proximal to distal Derm: Open incision sites noted at dorsomedial and dorsolateral right foot and at medial and lateral right mid calf. Plain packing noted to R plantar foot wound and R medial and lateral leg incisions as well as the dorsal foot incisions, remains intact in incision sites at time of visit. Serosanguinous drainage noted on R plantar foot aspect of dressing. No signs of necrosis noted to deep tissue. No malodor, purulent drainage or periwound erythema. Tunneling noted from R plantar ulceration site to dorsolateral incision site, no active bleeding noted from the incision site today. No purulent drainage expressed today. Superficial hematomas with ecchymosis noted diffusely across dorsal right midfoot Neuro: protective sensation grossly diminished B/L Ortho: tenderness upon palpation of R leg incision sites consistent with surgical procedure and proximity to neural structures - Neurological Exam Neurological Exam: Alert, Awake, Oriented x3 - Psychiatric Exam Psychiatric exam: Normal Affect, Normal Mood Assessment and Plan - Assessment and Plan (Free Text) Assessment: 56 year old female seen 8 days s/p right foot and leg incision and drainage secondary to gas gangrene Plan: Patient seen and evaluated at bedside Charts, labs and vitals reviewed Dressing changed using plain packing, ABD pads, DSD, and SHLOMO Continue IV abx per ID Intra op wound cx growth: corynebacterium species Xrays 03/13 show possible residual gas in dorsal right foot and posterior right leg MRI right foot: OM of calcaneus, cuboid, lateral cuneiform, middle cuneiform, mets 2-5, distal talus, myositis and tendinopathy at proximal and midfoot Abdominal angio - no significant stenosis or occlusive disease noted Peripheral angio - No signs of PAD, three vessel runoff present Dr. Kaur suggests right leg BKA at this time Patient is agreeable to BKA surgery at this time, is aware that AKA may also be a possibility Pt seen yesterday by vascular surgery team - pt to go for BKA or AKA with Dr. Palomares- date and time pending Manocchio on board and agrees with plan for likely BKA Podiatry will continue to follow while patient in house <Jonatan Kaur - Last Filed: 03/21/17 18:37> Objective - Vital Signs/Intake and Output Vital Signs (last 24 hours): Temp Pulse Resp BP Pulse Ox 97.5 F L 67 19 114/61 98 03/21/17 15:39 03/21/17 15:39 03/21/17 15:39 03/21/17 15:39 03/21/17 15:39 - Medications Medications: Current Medications Acetaminophen (Tylenol 325mg Tab) 650 mg PO Q4 PRN PRN Reason: Pain, Mild (1-3) Dextrose (Dextrose 50% Inj) 0 ml IV STAT PRN; Protocol PRN Reason: Hyglycemia Protocol Dextrose (Glutose 15) 0 gm PO ONCE PRN; Protocol PRN Reason: Hypoglycemia Protocol Docusate Sodium (Colace) 100 mg PO BID [facility] Last Admin: 03/21/17 17:44 Dose: 100 mg Ferrous Sulfate (Feosol) 325 mg PO BID [facility] Last Admin: 03/21/17 17:44 Dose: 325 mg Glucagon (Glucagen Diagnostic Kit) 0 mg IM STAT PRN; Protocol PRN Reason: Hypoglycemia Protocol Hydromorphone HCl (Dilaudid) 1 mg IVP Q4 PRN PRN Reason: Pain (8-10) Last Admin: 03/21/17 08:51 Dose: 1 mg Clindamycin Phosphate 600 mg/ (Sodium Chloride) 104 mls @ 104 mls/hr IVPB Q12 [facility] Last Admin: 03/21/17 08:41 Dose: 104 mls/hr Lactated Ringer's (Lactated Ringer's) 1,000 mls @ 100 mls/hr IV .Q10H [facility] Last Admin: 03/17/17 23:01 Dose: Not Given Meropenem 1 gm/ Sodium (Chloride) 100 mls @ 100 mls/hr IVPB Q12 [facility] Last Admin: 03/21/17 10:06 Dose: 100 mls/hr Insulin Human Regular (Humulin R) 0 units SC ACHS [facility] PRN Reason: Protocol Last Admin: 03/21/17 17:45 Dose: 6 u Insulin Lispro Protam/Lispro Human (Humalog Mix 75/25) 10 units SC BID [facility] Last Admin: 03/21/17 17:45 Dose: 10 units Metformin HCl (Glucophage) 1,000 mg PO BIDWM [facility] Last Admin: 03/21/17 17:45 Dose: 1,000 mg Pravastatin Sodium (Pravachol) 40 mg PO HS [facility] Last Admin: 03/20/17 21:45 Dose: 40 mg Pregabalin (Lyrica) 100 mg PO TID [facility] Last Admin: 03/21/17 17:37 Dose: 100 mg Sitagliptin Phosphate (Januvia) 100 mg PO DAILY [facility] Last Admin: 03/21/17 08:43 Dose: 100 mg - Labs Labs: 03/21/17 05:30 03/21/17 05:30 PT 11.8 Seconds (9.8-13.1) 03/16/17 15:50 INR 1.1 (0.9-1.2) 03/16/17 15:50 APTT 35.0 Seconds (25.6-37.1) 03/16/17 15:50 Assessment and Plan - Assessment and Plan (Free Text) Plan: pt seen at bedside with resident and evaluated . Agree with above .May need BKA or AKA depending on findings. .
--- NOTE | 2017-03-20 07:57 | CP.PCM.PN ---
Subjective - Date & Time of Evaluation Date of Evaluation: 03/20/17 Time of Evaluation: 07:54 - Subjective Subjective: Surgery: Dr. Palomares Patient remains clinically same. Complains of some pain in the foot. She denies f/c/n/v. Patient aware of possible BKA for osteo. Objective - Vital Signs/Intake and Output Vital Signs (last 24 hours): Temp Pulse Resp BP Pulse Ox 97.7 F 77 18 121/60 97 03/20/17 00:33 03/20/17 00:33 03/20/17 00:33 03/20/17 00:33 03/20/17 00:33 - Medications Medications: Current Medications Acetaminophen (Tylenol 325mg Tab) 650 mg PO Q4 PRN PRN Reason: Pain, Mild (1-3) Dextrose (Dextrose 50% Inj) 0 ml IV STAT PRN; Protocol PRN Reason: Hyglycemia Protocol Dextrose (Glutose 15) 0 gm PO ONCE PRN; Protocol PRN Reason: Hypoglycemia Protocol Docusate Sodium (Colace) 100 mg PO BID [facility] Last Admin: 03/19/17 17:00 Dose: Not Given Ferrous Sulfate (Feosol) 325 mg PO BID [facility] Last Admin: 03/19/17 17:01 Dose: 325 mg Glucagon (Glucagen Diagnostic Kit) 0 mg IM STAT PRN; Protocol PRN Reason: Hypoglycemia Protocol Hydromorphone HCl (Dilaudid) 1 mg IVP Q4 PRN PRN Reason: Pain (8-10) Last Admin: 03/20/17 06:30 Dose: 1 mg Clindamycin Phosphate 600 mg/ (Sodium Chloride) 104 mls @ 104 mls/hr IVPB Q12 [facility] Last Admin: 03/19/17 20:30 Dose: 104 mls/hr Lactated Ringer's (Lactated Ringer's) 1,000 mls @ 100 mls/hr IV .Q10H [facility] Last Admin: 03/17/17 23:01 Dose: Not Given Meropenem 1 gm/ Sodium (Chloride) 100 mls @ 100 mls/hr IVPB Q12 [facility] Last Admin: 03/19/17 21:30 Dose: 100 mls/hr Insulin Human Regular (Humulin R) 0 units SC ACHS [facility] PRN Reason: Protocol Last Admin: 03/19/17 22:14 Dose: 9 u Metformin HCl (Glucophage) 1,000 mg PO BIDWM [facility] Last Admin: 03/19/17 17:01 Dose: 1,000 mg Pravastatin Sodium (Pravachol) 40 mg PO HS [facility] Last Admin: 03/19/17 21:52 Dose: 40 mg Pregabalin (Lyrica) 100 mg PO TID [facility] Last Admin: 03/19/17 17:10 Dose: 100 mg Sitagliptin Phosphate (Januvia) 100 mg PO DAILY [facility] Last Admin: 03/19/17 09:55 Dose: 100 mg - Labs Labs: 03/18/17 09:50 03/18/17 09:50 PT 11.8 Seconds (9.8-13.1) 03/16/17 15:50 INR 1.1 (0.9-1.2) 03/16/17 15:50 APTT 35.0 Seconds (25.6-37.1) 03/16/17 15:50 - Constitutional Appears: No Acute Distress - Head Exam Head Exam: ATRAUMATIC, NORMOCEPHALIC - Eye Exam Eye Exam: EOMI, Normal appearance - ENT Exam ENT Exam: Mucous Membranes Moist - Respiratory Exam Respiratory Exam: NORMAL BREATHING PATTERN. absent: Respiratory Distress - Cardiovascular Exam Cardiovascular Exam: REGULAR RHYTHM. absent: Tachycardia - Extremities Exam Extremities Exam: absent: Calf Tenderness Additional comments: RLE with soft cast and SHLOMO wrap. popliteal pulse faintly palpable. - Neurological Exam Neurological Exam: Alert, Awake - Skin Skin Exam: Dry, Normal Color, Warm Assessment and Plan - Assessment and Plan (Free Text) Assessment: 56 y/o F w/ R foot osteomyelitis Plan: -Possible R BKA vs AKA for osteomyelitis, time/date of OR TBD -Cont ABX, patient with history of noncompliance -Medical management -Glucose control -cont wound care per Podiatry -further recs per attending AKWhite PGY3
[2017-03-20] MEDS: Clindamycin 600 MG in Sodium Chloride 0.9% 100 ML IVPB SCH ×2 (08:49→20:30)
[2017-03-20] MEDS: Insulin Regular 100 units/ml SC SCH ×4 (08:50→21:57)
[2017-03-20] MEDS: Meropenem 1 GM in Sodium Chloride 0.9% 100 ML IVPB SCH ×2 (10:23→21:42)
--- NOTE | 2017-03-20 16:00 | CP.PCM.PN ---
Subjective - Date & Time of Evaluation Date of Evaluation: 03/20/17 Time of Evaluation: 15:58 - Subjective Subjective: Patient seen and examined with attending. Wound is not healing well. She is aware she is scheduled for OR as per surgery for BKA. Will continue with IV antibiotics for foot infection. Her diabetes is very uncontrolled. accuchecks have been in the 300s for the most part. Will start humalog and titrate accordingly. Continue sliding scale for coverage. Objective - Vital Signs/Intake and Output Vital Signs (last 24 hours): Temp Pulse Resp BP Pulse Ox 97.4 F L 75 18 107/70 96 03/20/17 08:51 03/20/17 08:51 03/20/17 08:51 03/20/17 08:51 03/20/17 08:51 - Medications Medications: Current Medications Acetaminophen (Tylenol 325mg Tab) 650 mg PO Q4 PRN PRN Reason: Pain, Mild (1-3) Dextrose (Dextrose 50% Inj) 0 ml IV STAT PRN; Protocol PRN Reason: Hyglycemia Protocol Dextrose (Glutose 15) 0 gm PO ONCE PRN; Protocol PRN Reason: Hypoglycemia Protocol Docusate Sodium (Colace) 100 mg PO BID [facility] Last Admin: 03/20/17 08:50 Dose: 100 mg Ferrous Sulfate (Feosol) 325 mg PO BID [facility] Last Admin: 03/20/17 08:50 Dose: 325 mg Glucagon (Glucagen Diagnostic Kit) 0 mg IM STAT PRN; Protocol PRN Reason: Hypoglycemia Protocol Hydromorphone HCl (Dilaudid) 1 mg IVP Q4 PRN PRN Reason: Pain (8-10) Last Admin: 03/20/17 13:42 Dose: 1 mg Clindamycin Phosphate 600 mg/ (Sodium Chloride) 104 mls @ 104 mls/hr IVPB Q12 [facility] Last Admin: 03/20/17 08:49 Dose: 104 mls/hr Lactated Ringer's (Lactated Ringer's) 1,000 mls @ 100 mls/hr IV .Q10H [facility] Last Admin: 03/17/17 23:01 Dose: Not Given Meropenem 1 gm/ Sodium (Chloride) 100 mls @ 100 mls/hr IVPB Q12 [facility] Last Admin: 03/20/17 10:23 Dose: 100 mls/hr Insulin Human Regular (Humulin R) 0 units SC ACHS [facility] PRN Reason: Protocol Last Admin: 03/20/17 12:58 Dose: 6 u Metformin HCl (Glucophage) 1,000 mg PO BIDWM [facility] Last Admin: 03/20/17 08:50 Dose: 1,000 mg Pravastatin Sodium (Pravachol) 40 mg PO HS [facility] Last Admin: 03/19/17 21:52 Dose: 40 mg Pregabalin (Lyrica) 100 mg PO TID [facility] Last Admin: 03/20/17 12:58 Dose: 100 mg Sitagliptin Phosphate (Januvia) 100 mg PO DAILY [facility] Last Admin: 03/20/17 08:51 Dose: 100 mg - Labs Labs: 03/18/17 09:50 03/18/17 09:50 PT 11.8 Seconds (9.8-13.1) 03/16/17 15:50 INR 1.1 (0.9-1.2) 03/16/17 15:50 APTT 35.0 Seconds (25.6-37.1) 03/16/17 15:50 - Constitutional Appears: Non-toxic, Other (morbidly obese) - ENT Exam ENT Exam: Mucous Membranes Moist - Respiratory Exam Respiratory Exam: Clear to Ausculation Bilateral, NORMAL BREATHING PATTERN - Cardiovascular Exam Cardiovascular Exam: REGULAR RHYTHM, +S1, +S2 - GI/Abdominal Exam GI & Abdominal Exam: Soft, Normal Bowel Sounds. absent: Distended, Guarding, Tenderness - Extremities Exam Additional comments: foot not examined - Neurological Exam Neurological Exam: Alert, Awake, Oriented x3 - Psychiatric Exam Psychiatric exam: Normal Affect, Normal Mood Assessment and Plan (1) Gangrene of foot Assessment & Plan: 56 year old morbidly obese female with uncontrolled DM, with gangrene and OM of her foot. Cultures +corynebacterium. -to go to OR for potential BKA -Surgery and podiatry are following. -continue IV antibiotics, clinda/merrem Status: Acute (2) Osteomyelitis of foot Status: Acute (3) Type 2 diabetes mellitus with hyperglycemia Assessment & Plan: -uncontrolled -start humalog 75/25 10 units sc BID today as novolog 70/30 unavailable -continue metformin/januvia -accuchecks ACHS Status: Chronic (4) Anemia Assessment & Plan: s/p transfusions, monitor cbc Status: Acute (5) DVT prophylaxis Assessment & Plan: scds Status: Acute
[2017-03-20] MEDS: Insulin Lispro Mix 75/25 100 units/ml (HumaLog) 10ml SC SCH (17:13)
[2017-03-20] MEDS: Pravastatin Sodium 40 MG TAB PO SCH (21:45)
[2017-03-21 07:48] LABS: HEMATOCRIT 28.7 % (34.0-47.0); MEAN CELL VOLUME 87.5 fl (81.0-99.0); MEAN CORPUSCULAR HEMOGLOBIN 29.1 pg (27.0-31.0); MEAN CORPUSCULAR HGB CONC 33.3 g/dL (33.0-37.0); RED CELL DISTRIBUTION WIDTH 16.8 % (11.5-14.5); WHITE BLOOD COUNT 10.1 K/uL (4.8-10.8)
[2017-03-21 08:07] LABS: ALKALINE PHOSPHATASE 315 U/L (38-126); ALT/SGPT 27 U/L (9-52); AST/SGOT 20 U/L (14-36); BILIRUBIN,TOTAL 0.4 mg/dl (0.2-1.3); BLOOD UREA NITROGEN 18 mg/dl (7-17); CALCIUM 8.8 mg/dL (8.4-10.2); CARBON DIOXIDE 26 mmol/L (22-30); CHLORIDE 99 mmol/L (98-107); GFR AFRICAN-AMERICAN > 60; GLUCOSE,RANDOM 214 mg/dL (65-105); POTASSIUM 4.6 MMOL/L (3.6-5.0); SODIUM 133 mmol/l (132-148); TOTAL PROTEIN 6.8 G/DL (6.3-8.2)
[2017-03-21 08:19] LABS: ALB/GLOB RATIO 0.7 (1.0-2.1)
[2017-03-21] MEDS: Clindamycin 600 MG in Sodium Chloride 0.9% 100 ML IVPB SCH ×2 (08:41→20:10)
[2017-03-21] MEDS: Insulin Regular 100 units/ml SC SCH ×4 (08:42→21:39)
[2017-03-21] MEDS: Insulin Lispro Mix 75/25 100 units/ml (HumaLog) 10ml SC SCH ×2 (08:43→17:45)
--- NOTE | 2017-03-21 09:15 | CP.PCM.PN ---
Subjective - Date & Time of Evaluation Date of Evaluation: 03/21/17 Time of Evaluation: 09:12 - Subjective Subjective: Surgery: Dr. Palomares Patient doing well today. She denies f/c. She states she only wants the below the knee amputation although both AKA and BKA have been presented as an option for her. Objective - Vital Signs/Intake and Output Vital Signs (last 24 hours): Temp Pulse Resp BP Pulse Ox 98.4 F 74 18 105/54 L 94 L 03/21/17 07:57 03/21/17 07:57 03/21/17 07:57 03/21/17 07:57 03/21/17 07:57 - Medications Medications: Current Medications Acetaminophen (Tylenol 325mg Tab) 650 mg PO Q4 PRN PRN Reason: Pain, Mild (1-3) Dextrose (Dextrose 50% Inj) 0 ml IV STAT PRN; Protocol PRN Reason: Hyglycemia Protocol Dextrose (Glutose 15) 0 gm PO ONCE PRN; Protocol PRN Reason: Hypoglycemia Protocol Docusate Sodium (Colace) 100 mg PO BID [facility] Last Admin: 03/20/17 17:07 Dose: 100 mg Ferrous Sulfate (Feosol) 325 mg PO BID [facility] Last Admin: 03/21/17 08:42 Dose: 325 mg Glucagon (Glucagen Diagnostic Kit) 0 mg IM STAT PRN; Protocol PRN Reason: Hypoglycemia Protocol Hydromorphone HCl (Dilaudid) 1 mg IVP Q4 PRN PRN Reason: Pain (8-10) Last Admin: 03/21/17 08:51 Dose: 1 mg Clindamycin Phosphate 600 mg/ (Sodium Chloride) 104 mls @ 104 mls/hr IVPB Q12 [facility] Last Admin: 03/21/17 08:41 Dose: 104 mls/hr Lactated Ringer's (Lactated Ringer's) 1,000 mls @ 100 mls/hr IV .Q10H [facility] Last Admin: 03/17/17 23:01 Dose: Not Given Meropenem 1 gm/ Sodium (Chloride) 100 mls @ 100 mls/hr IVPB Q12 [facility] Last Admin: 03/20/17 21:42 Dose: 100 mls/hr Insulin Human Regular (Humulin R) 0 units SC ACHS [facility] PRN Reason: Protocol Last Admin: 09/02/17 08:42 Dose: 4 u Insulin Lispro Protam/Lispro Human (Humalog Mix 75/25) 10 units SC BID [facility] Last Admin: 03/21/17 08:43 Dose: 10 units Metformin HCl (Glucophage) 1,000 mg PO BIDWM [facility] Last Admin: 03/21/17 08:42 Dose: 1,000 mg Pravastatin Sodium (Pravachol) 40 mg PO HS [facility] Last Admin: 03/20/17 21:45 Dose: 40 mg Pregabalin (Lyrica) 100 mg PO TID [facility] Last Admin: 03/21/17 08:41 Dose: 100 mg Sitagliptin Phosphate (Januvia) 100 mg PO DAILY [facility] Last Admin: 03/21/17 08:43 Dose: 100 mg - Labs Labs: 03/21/17 05:30 03/21/17 05:30 PT 11.8 Seconds (9.8-13.1) 03/16/17 15:50 INR 1.1 (0.9-1.2) 03/16/17 15:50 APTT 35.0 Seconds (25.6-37.1) 03/16/17 15:50 - Constitutional Appears: Non-toxic, No Acute Distress - Head Exam Head Exam: ATRAUMATIC, NORMOCEPHALIC - Eye Exam Eye Exam: EOMI, Normal appearance - ENT Exam ENT Exam: Mucous Membranes Moist - Respiratory Exam Respiratory Exam: NORMAL BREATHING PATTERN. absent: Respiratory Distress - Cardiovascular Exam Cardiovascular Exam: REGULAR RHYTHM. absent: Tachycardia - Extremities Exam Additional comments: RLE with soft cast and SHLOMO bandage wrapping. Skin is warm and dry. - Neurological Exam Neurological Exam: Alert, Awake Assessment and Plan - Assessment and Plan (Free Text) Assessment: 56 y/o F w/ R foot osteomyelitis Plan: -Possible R BKA vs AKA for osteomyelitis, time/date of OR TBD. Patient reports only wanted BKA at this time. -Cont ABX -Medical management -Glucose control -cont wound care per Podiatry -further recs per attending AKWhite PGY3
[2017-03-21] MEDS: Meropenem 1 GM in Sodium Chloride 0.9% 100 ML IVPB SCH ×2 (10:06→21:33)
--- NOTE | 2017-03-21 18:40 | CP.PCM.PN ---
Subjective - Date & Time of Evaluation Date of Evaluation: 03/21/17 Time of Evaluation: 08:45 - Subjective Subjective: Pt was seen this AM and dressings changed .No complaints this AM . To OR next week for amputation.Pt is s/p 9 days I&D for gas gangrene right foot and lower leg . Objective - Vital Signs/Intake and Output Vital Signs (last 24 hours): Temp Pulse Resp BP Pulse Ox 97.5 F L 67 19 114/61 98 03/21/17 15:39 03/21/17 15:39 03/21/17 15:39 03/21/17 15:39 03/21/17 15:39 - Medications Medications: Current Medications Acetaminophen (Tylenol 325mg Tab) 650 mg PO Q4 PRN PRN Reason: Pain, Mild (1-3) Dextrose (Dextrose 50% Inj) 0 ml IV STAT PRN; Protocol PRN Reason: Hyglycemia Protocol Dextrose (Glutose 15) 0 gm PO ONCE PRN; Protocol PRN Reason: Hypoglycemia Protocol Docusate Sodium (Colace) 100 mg PO BID [facility] Last Admin: 03/21/17 17:44 Dose: 100 mg Ferrous Sulfate (Feosol) 325 mg PO BID [facility] Last Admin: 03/21/17 17:44 Dose: 325 mg Glucagon (Glucagen Diagnostic Kit) 0 mg IM STAT PRN; Protocol PRN Reason: Hypoglycemia Protocol Hydromorphone HCl (Dilaudid) 1 mg IVP Q4 PRN PRN Reason: Pain (8-10) Last Admin: 03/21/17 08:51 Dose: 1 mg Clindamycin Phosphate 600 mg/ (Sodium Chloride) 104 mls @ 104 mls/hr IVPB Q12 [facility] Last Admin: 03/21/17 08:41 Dose: 104 mls/hr Lactated Ringer's (Lactated Ringer's) 1,000 mls @ 100 mls/hr IV .Q10H [facility] Last Admin: 03/17/17 23:01 Dose: Not Given Meropenem 1 gm/ Sodium (Chloride) 100 mls @ 100 mls/hr IVPB Q12 [facility] Last Admin: 03/21/17 10:06 Dose: 100 mls/hr Insulin Human Regular (Humulin R) 0 units SC ACHS [facility] PRN Reason: Protocol Last Admin: 03/21/17 17:45 Dose: 6 u Insulin Lispro Protam/Lispro Human (Humalog Mix 75/25) 10 units SC BID [facility] Last Admin: 03/21/17 17:45 Dose: 10 units Metformin HCl (Glucophage) 1,000 mg PO BIDWM [facility] Last Admin: 03/21/17 17:45 Dose: 1,000 mg Pravastatin Sodium (Pravachol) 40 mg PO HS [facility] Last Admin: 03/20/17 21:45 Dose: 40 mg Pregabalin (Lyrica) 100 mg PO TID [facility] Last Admin: 03/21/17 17:37 Dose: 100 mg Sitagliptin Phosphate (Januvia) 100 mg PO DAILY [facility] Last Admin: 03/21/17 08:43 Dose: 100 mg - Labs Labs: 03/21/17 05:30 03/21/17 05:30 PT 11.8 Seconds (9.8-13.1) 03/16/17 15:50 INR 1.1 (0.9-1.2) 03/16/17 15:50 APTT 35.0 Seconds (25.6-37.1) 03/16/17 15:50 - Extremities Exam Additional comments: O/Open I&d sites foot and lower leg with no malodor or purulence . Discoloration from superficial dried blood in epidermal layer of foot right entire dorsum of mid/rearfoot . Extensive OM rearfoot right with bone destruction . Assessment and Plan - Assessment and Plan (Free Text) Assessment: A/s/p Gas Gangrene /Extensive O.M right foot . Plan: P/Continued local wound care and antibiotics until leg amputation is performed.
[2017-03-21] MEDS: Pravastatin Sodium 40 MG TAB PO SCH (21:41)
--- NOTE | 2017-03-22 07:48 | CP.PCM.PN ---
Subjective - Date & Time of Evaluation Date of Evaluation: 03/22/17 Time of Evaluation: 07:47 - Subjective Subjective: Surgery: Dr. Palomares Patient remains clinically same. NO complaints at this time. patient still preferring BKA over AKA. Objective - Vital Signs/Intake and Output Vital Signs (last 24 hours): Temp Pulse Resp BP Pulse Ox 98.3 F 73 20 122/69 96 03/22/17 00:26 03/22/17 00:26 03/22/17 00:26 03/22/17 00:26 03/22/17 00:26 - Medications Medications: Current Medications Acetaminophen (Tylenol 325mg Tab) 650 mg PO Q4 PRN PRN Reason: Pain, Mild (1-3) Dextrose (Dextrose 50% Inj) 0 ml IV STAT PRN; Protocol PRN Reason: Hyglycemia Protocol Dextrose (Glutose 15) 0 gm PO ONCE PRN; Protocol PRN Reason: Hypoglycemia Protocol Docusate Sodium (Colace) 100 mg PO BID [facility] Last Admin: 03/21/17 17:44 Dose: 100 mg Ferrous Sulfate (Feosol) 325 mg PO BID [facility] Last Admin: 03/21/17 17:44 Dose: 325 mg Glucagon (Glucagen Diagnostic Kit) 0 mg IM STAT PRN; Protocol PRN Reason: Hypoglycemia Protocol Hydromorphone HCl (Dilaudid) 1 mg IVP Q4 PRN PRN Reason: Pain (8-10) Last Admin: 03/22/17 03:42 Dose: 1 mg Clindamycin Phosphate 600 mg/ (Sodium Chloride) 104 mls @ 104 mls/hr IVPB Q12 [facility] Last Admin: 03/21/17 20:10 Dose: 104 mls/hr Lactated Ringer's (Lactated Ringer's) 1,000 mls @ 100 mls/hr IV .Q10H [facility] Last Admin: 03/17/17 23:01 Dose: Not Given Meropenem 1 gm/ Sodium (Chloride) 100 mls @ 100 mls/hr IVPB Q12 [facility] Last Admin: 03/21/17 21:33 Dose: 100 mls/hr Insulin Human Regular (Humulin R) 0 units SC ACHS [facility] PRN Reason: Protocol Last Admin: 03/21/17 21:39 Dose: 9 u Insulin Lispro Protam/Lispro Human (Humalog Mix 75/25) 10 units SC BID [facility] Last Admin: 03/21/17 17:45 Dose: 10 units Metformin HCl (Glucophage) 1,000 mg PO BIDWM [facility] Last Admin: 03/21/17 17:45 Dose: 1,000 mg Pravastatin Sodium (Pravachol) 40 mg PO HS [facility] Last Admin: 03/21/17 21:41 Dose: 40 mg Pregabalin (Lyrica) 100 mg PO TID [facility] Last Admin: 03/21/17 17:37 Dose: 100 mg Sitagliptin Phosphate (Januvia) 100 mg PO DAILY [facility] Last Admin: 03/21/17 08:43 Dose: 100 mg - Labs Labs: 03/21/17 05:30 03/21/17 05:30 PT 11.8 Seconds (9.8-13.1) 03/16/17 15:50 INR 1.1 (0.9-1.2) 03/16/17 15:50 APTT 35.0 Seconds (25.6-37.1) 03/16/17 15:50 - Constitutional Appears: Non-toxic, No Acute Distress - Head Exam Head Exam: ATRAUMATIC, NORMOCEPHALIC - Eye Exam Eye Exam: EOMI, Normal appearance - ENT Exam ENT Exam: Mucous Membranes Moist - Respiratory Exam Respiratory Exam: NORMAL BREATHING PATTERN. absent: Respiratory Distress - Cardiovascular Exam Cardiovascular Exam: REGULAR RHYTHM. absent: Tachycardia - Extremities Exam Extremities Exam: absent: Tenderness Additional comments: cast dressing CDI - Skin Skin Exam: Dry, Intact, Normal Color, Warm Assessment and Plan - Assessment and Plan (Free Text) Assessment: 56 y/o F w/ R foot osteomyelitis and gas gangrene s/p drainage with podiatry Plan: -Possible R BKA vs AKA for osteomyelitis, time/date of OR TBD. Patient reports only wanted BKA at this time. -Cont ABX -Medical management -Glucose control -cont wound care per Podiatry -further recs per attending AKWhite PGY3
[2017-03-22] MEDS: Clindamycin 600 MG in Sodium Chloride 0.9% 100 ML IVPB SCH ×2 (08:57→20:30)
[2017-03-22] MEDS: Insulin Regular 100 units/ml SC SCH ×4 (08:58→22:05)
[2017-03-22] MEDS: Insulin Lispro Mix 75/25 100 units/ml (HumaLog) 10ml SC SCH ×2 (09:05→17:17)
--- NOTE | 2017-03-22 09:26 | CP.PCM.PN ---
Subjective - Date & Time of Evaluation Date of Evaluation: 03/22/17 Time of Evaluation: 11:30 - Subjective Subjective: 56 year old female seen at bedside 10 days s/p right foot and leg incision and drainage for gas gangrene. Patient is in NAD and is AAOx3 at this time. Patient states the pain is being controlled by Dilaudid and given regularly. Patient denies any pain to her foot but reports continued pain to medial and lateral incision sites on her leg. Patient denies any acute events overnight. Patient denies of any F/N/V/C/SOB today. No other pedal complaints at this time. Objective - Vital Signs/Intake and Output Vital Signs (last 24 hours): Temp Pulse Resp BP Pulse Ox 97.8 F 61 19 113/60 97 03/22/17 07:50 03/22/17 07:50 03/22/17 07:50 03/22/17 07:50 03/22/17 07:50 - Medications Medications: Current Medications Acetaminophen (Tylenol 325mg Tab) 650 mg PO Q4 PRN PRN Reason: Pain, Mild (1-3) Dextrose (Dextrose 50% Inj) 0 ml IV STAT PRN; Protocol PRN Reason: Hyglycemia Protocol Dextrose (Glutose 15) 0 gm PO ONCE PRN; Protocol PRN Reason: Hypoglycemia Protocol Docusate Sodium (Colace) 100 mg PO BID [facility] Last Admin: 03/22/17 08:56 Dose: 100 mg Ferrous Sulfate (Feosol) 325 mg PO BID [facility] Last Admin: 03/22/17 08:56 Dose: 325 mg Glucagon (Glucagen Diagnostic Kit) 0 mg IM STAT PRN; Protocol PRN Reason: Hypoglycemia Protocol Hydromorphone HCl (Dilaudid) 1 mg IVP Q4 PRN PRN Reason: Pain (8-10) Last Admin: 03/22/17 08:55 Dose: 1 mg Clindamycin Phosphate 600 mg/ (Sodium Chloride) 104 mls @ 104 mls/hr IVPB Q12 [facility] Last Admin: 03/22/17 08:57 Dose: 104 mls/hr Lactated Ringer's (Lactated Ringer's) 1,000 mls @ 100 mls/hr IV .Q10H [facility] Last Admin: 03/17/17 23:01 Dose: Not Given Meropenem 1 gm/ Sodium (Chloride) 100 mls @ 100 mls/hr IVPB Q12 [facility] Last Admin: 03/21/17 21:33 Dose: 100 mls/hr Insulin Human Regular (Humulin R) 0 units SC ACHS [facility] PRN Reason: Protocol Last Admin: 03/22/17 08:58 Dose: 3 u Insulin Lispro Protam/Lispro Human (Humalog Mix 75/25) 10 units SC BID [facility] Last Admin: 03/22/17 09:05 Dose: 10 units Metformin HCl (Glucophage) 1,000 mg PO BIDWM [facility] Last Admin: 03/22/17 08:56 Dose: 1,000 mg Pravastatin Sodium (Pravachol) 40 mg PO HS [facility] Last Admin: 03/21/17 21:41 Dose: 40 mg Pregabalin (Lyrica) 100 mg PO TID [facility] Last Admin: 03/22/17 08:56 Dose: 100 mg Sitagliptin Phosphate (Januvia) 100 mg PO DAILY [facility] Last Admin: 03/22/17 08:57 Dose: 100 mg - Labs Labs: 03/21/17 05:30 03/21/17 05:30 PT 11.8 Seconds (9.8-13.1) 03/16/17 15:50 INR 1.1 (0.9-1.2) 03/16/17 15:50 APTT 35.0 Seconds (25.6-37.1) 03/16/17 15:50 - Constitutional Appears: Well, Non-toxic, No Acute Distress - Extremities Exam Additional comments: Vasc: CFT >3 seconds to the digits bilaterally, right leg edema noted from mid calf extending distally to digits, skin temperature cool to cool from proximal to distal Derm: Open incision sites noted at dorsomedial and dorsolateral right foot and at medial and lateral right mid calf; incision to dorsolateral foot is noted to have exposed tendons. R plantar ulceration noted to have moderate serosanguinous drainage No signs of necrosis noted to deep tissue. No malodor, purulent drainage noted. Tunneling noted from R plantar ulceration site to dorsolateral incision site, no active bleeding noted from the incision site today. Superficial hematomas with ecchymosis noted diffusely across dorsal right midfoot Neuro: protective sensation grossly diminished B/L Ortho: tenderness upon palpation of R leg incision sites consistent with surgical procedure and proximity to neural structures - Neurological Exam Neurological Exam: Alert, Awake, Oriented x3 - Psychiatric Exam Psychiatric exam: Normal Affect, Normal Mood Assessment and Plan - Assessment and Plan (Free Text) Assessment: 56 year old female seen 10 days s/p right foot and leg incision and drainage secondary to gas gangrene Plan: Patient seen and evaluated at bedside Charts, labs and vitals reviewed Dressing changed using plain packing, ABD pads, DSD, and SHLOMO Continue IV abx per ID Patient is agreeable to BKA, is aware that AKA may also be a possibility. Per general surgery, patient prefers BKA at this time. To OR with Dr. Palomares next week, time/date ANIBAL Verde on board and agrees with plan for likely BKA Continue with local wound care Podiatry will continue to follow while patient in house
[2017-03-22] MEDS: Meropenem 1 GM in Sodium Chloride 0.9% 100 ML IVPB SCH ×2 (10:11→21:30)
--- NOTE | 2017-03-22 13:09 | CP.PCM.PN ---
Subjective - Date & Time of Evaluation Date of Evaluation: 03/21/17 Time of Evaluation: 09:30 - Subjective Subjective: Patient is doing well Accucheck showed elevated FBS Scheduled for BKA on Thursday Has no fever. Objective - Vital Signs/Intake and Output Vital Signs (last 24 hours): Temp Pulse Resp BP Pulse Ox 97.8 F 61 19 113/60 97 03/22/17 07:50 03/22/17 07:50 03/22/17 07:50 03/22/17 07:50 03/22/17 07:50 - Medications Medications: Current Medications Acetaminophen (Tylenol 325mg Tab) 650 mg PO Q4 PRN PRN Reason: Pain, Mild (1-3) Dextrose (Dextrose 50% Inj) 0 ml IV STAT PRN; Protocol PRN Reason: Hyglycemia Protocol Dextrose (Glutose 15) 0 gm PO ONCE PRN; Protocol PRN Reason: Hypoglycemia Protocol Docusate Sodium (Colace) 100 mg PO BID [facility] Last Admin: 03/22/17 08:56 Dose: 100 mg Ferrous Sulfate (Feosol) 325 mg PO BID [facility] Last Admin: 03/22/17 08:56 Dose: 325 mg Glucagon (Glucagen Diagnostic Kit) 0 mg IM STAT PRN; Protocol PRN Reason: Hypoglycemia Protocol Hydromorphone HCl (Dilaudid) 1 mg IVP Q4 PRN PRN Reason: Pain (8-10) Last Admin: 03/22/17 08:55 Dose: 1 mg Clindamycin Phosphate 600 mg/ (Sodium Chloride) 104 mls @ 104 mls/hr IVPB Q12 [facility] Last Admin: 03/22/17 08:57 Dose: 104 mls/hr Lactated Ringer's (Lactated Ringer's) 1,000 mls @ 100 mls/hr IV .Q10H [facility] Last Admin: 03/17/17 23:01 Dose: Not Given Meropenem 1 gm/ Sodium (Chloride) 100 mls @ 100 mls/hr IVPB Q12 [facility] Last Admin: 03/22/17 10:11 Dose: 100 mls/hr Insulin Human Regular (Humulin R) 0 units SC ACHS [facility] PRN Reason: Protocol Last Admin: 03/22/17 12:12 Dose: 6 u Insulin Lispro Protam/Lispro Human (Humalog Mix 75/25) 12 units SC BID [facility] Metformin HCl (Glucophage) 1,000 mg PO BIDWM [facility] Last Admin: 03/22/17 08:56 Dose: 1,000 mg Pravastatin Sodium (Pravachol) 40 mg PO HS [facility] Last Admin: 03/21/17 21:41 Dose: 40 mg Pregabalin (Lyrica) 100 mg PO TID [facility] Last Admin: 03/22/17 12:11 Dose: 100 mg Sitagliptin Phosphate (Januvia) 100 mg PO DAILY [facility] Last Admin: 03/22/17 08:57 Dose: 100 mg - Labs Labs: 03/21/17 05:30 03/21/17 05:30 PT 11.8 Seconds (9.8-13.1) 03/16/17 15:50 INR 1.1 (0.9-1.2) 03/16/17 15:50 APTT 35.0 Seconds (25.6-37.1) 03/16/17 15:50 - Head Exam Head Exam: NORMAL INSPECTION - Eye Exam Eye Exam: Normal appearance - ENT Exam ENT Exam: Mucous Membranes Moist - GI/Abdominal Exam GI & Abdominal Exam: Normal Bowel Sounds - Neurological Exam Neurological Exam: Awake, Oriented x3 - Psychiatric Exam Psychiatric exam: Flat Affect Assessment and Plan (1) Gangrene of foot Status: Acute (2) Bleeding Status: Acute (3) Uncontrolled type 2 diabetes mellitus Status: Chronic (4) Osteomyelitis of foot Status: Acute - Assessment and Plan (Free Text) Plan: Cont meds Cont tx Cont PT wound care stable for surgery
--- NOTE | 2017-03-22 13:11 | CP.PCM.PN ---
Subjective - Date & Time of Evaluation Date of Evaluation: 03/22/17 Time of Evaluation: 13:09 - Subjective Subjective: Patient continues to do well. Has no chest pain or SOB Afebrile. Objective - Vital Signs/Intake and Output Vital Signs (last 24 hours): Temp Pulse Resp BP Pulse Ox 97.8 F 61 19 113/60 97 03/22/17 07:50 03/22/17 07:50 03/22/17 07:50 03/22/17 07:50 03/22/17 07:50 - Medications Medications: Current Medications Acetaminophen (Tylenol 325mg Tab) 650 mg PO Q4 PRN PRN Reason: Pain, Mild (1-3) Dextrose (Dextrose 50% Inj) 0 ml IV STAT PRN; Protocol PRN Reason: Hyglycemia Protocol Dextrose (Glutose 15) 0 gm PO ONCE PRN; Protocol PRN Reason: Hypoglycemia Protocol Docusate Sodium (Colace) 100 mg PO BID [facility] Last Admin: 03/22/17 08:56 Dose: 100 mg Ferrous Sulfate (Feosol) 325 mg PO BID [facility] Last Admin: 03/22/17 08:56 Dose: 325 mg Glucagon (Glucagen Diagnostic Kit) 0 mg IM STAT PRN; Protocol PRN Reason: Hypoglycemia Protocol Hydromorphone HCl (Dilaudid) 1 mg IVP Q4 PRN PRN Reason: Pain (8-10) Last Admin: 03/22/17 08:55 Dose: 1 mg Clindamycin Phosphate 600 mg/ (Sodium Chloride) 104 mls @ 104 mls/hr IVPB Q12 [facility] Last Admin: 03/22/17 08:57 Dose: 104 mls/hr Lactated Ringer's (Lactated Ringer's) 1,000 mls @ 100 mls/hr IV .Q10H [facility] Last Admin: 03/17/17 23:01 Dose: Not Given Meropenem 1 gm/ Sodium (Chloride) 100 mls @ 100 mls/hr IVPB Q12 [facility] Last Admin: 03/22/17 10:11 Dose: 100 mls/hr Insulin Human Regular (Humulin R) 0 units SC ACHS [facility] PRN Reason: Protocol Last Admin: 03/22/17 12:12 Dose: 6 u Insulin Lispro Protam/Lispro Human (Humalog Mix 75/25) 12 units SC BID [facility] Metformin HCl (Glucophage) 1,000 mg PO BIDWM [facility] Last Admin: 03/22/17 08:56 Dose: 1,000 mg Pravastatin Sodium (Pravachol) 40 mg PO HS [facility] Last Admin: 03/21/17 21:41 Dose: 40 mg Pregabalin (Lyrica) 100 mg PO TID [facility] Last Admin: 03/22/17 12:11 Dose: 100 mg Sitagliptin Phosphate (Januvia) 100 mg PO DAILY [facility] Last Admin: 03/22/17 08:57 Dose: 100 mg - Labs Labs: 03/21/17 05:30 03/21/17 05:30 PT 11.8 Seconds (9.8-13.1) 03/16/17 15:50 INR 1.1 (0.9-1.2) 03/16/17 15:50 APTT 35.0 Seconds (25.6-37.1) 03/16/17 15:50 - Head Exam Head Exam: NORMAL INSPECTION - Eye Exam Eye Exam: Normal appearance - ENT Exam ENT Exam: Mucous Membranes Moist - Respiratory Exam Respiratory Exam: Clear to Ausculation Bilateral - Cardiovascular Exam Cardiovascular Exam: REGULAR RHYTHM - GI/Abdominal Exam GI & Abdominal Exam: Normal Bowel Sounds - Neurological Exam Neurological Exam: CN II-XII Intact, Normal Gait Assessment and Plan (1) Gangrene of foot Status: Acute (2) Bleeding Status: Acute (3) Uncontrolled type 2 diabetes mellitus Status: Chronic (4) Osteomyelitis of foot Status: Acute - Assessment and Plan (Free Text) Plan: Cont meds Cont tx Cont PT wound care
[2017-03-22] MEDS: Pravastatin Sodium 40 MG TAB PO SCH (22:04)
[2017-03-23] MEDS: Clindamycin 600 MG in Sodium Chloride 0.9% 100 ML IVPB SCH (08:43)
[2017-03-23] MEDS: Insulin Lispro Mix 75/25 100 units/ml (HumaLog) 10ml SC SCH ×2 (08:44→17:30)
[2017-03-23] MEDS: Insulin Regular 100 units/ml SC SCH ×4 (08:45→21:46)
[2017-03-23] MEDS: Meropenem 1 GM in Sodium Chloride 0.9% 100 ML IVPB SCH ×2 (10:33→20:10)
--- NOTE | 2017-03-23 11:22 | CP.PCM.PN ---
<HoodCesar - Last Filed: 03/23/17 11:16> Subjective - Date & Time of Evaluation Date of Evaluation: 03/23/17 Time of Evaluation: 11:18 - Subjective Subjective: Surgery Pt s&e. Denies F/C/N/V/D/CP/SOB. pain controlled. R foot dressings in place. Objective - Vital Signs/Intake and Output Vital Signs (last 24 hours): Temp Pulse Resp BP Pulse Ox 97 F L 76 20 123/60 95 03/23/17 08:27 03/23/17 08:27 03/23/17 08:27 03/23/17 08:27 03/23/17 08:27 - Medications Medications: Current Medications Acetaminophen (Tylenol 325mg Tab) 650 mg PO Q4 PRN PRN Reason: Pain, Mild (1-3) Dextrose (Dextrose 50% Inj) 0 ml IV STAT PRN; Protocol PRN Reason: Hyglycemia Protocol Dextrose (Glutose 15) 0 gm PO ONCE PRN; Protocol PRN Reason: Hypoglycemia Protocol Docusate Sodium (Colace) 100 mg PO BID [facility] Last Admin: 03/23/17 08:44 Dose: Not Given Ferrous Sulfate (Feosol) 325 mg PO BID [facility] Last Admin: 03/23/17 08:44 Dose: 325 mg Glucagon (Glucagen Diagnostic Kit) 0 mg IM STAT PRN; Protocol PRN Reason: Hypoglycemia Protocol Hydromorphone HCl (Dilaudid) 1 mg IVP Q4 PRN PRN Reason: Pain (8-10) Last Admin: 03/23/17 08:36 Dose: 1 mg Clindamycin Phosphate 600 mg/ (Sodium Chloride) 104 mls @ 104 mls/hr IVPB Q12 [facility] Last Admin: 03/23/17 08:43 Dose: 104 mls/hr Lactated Ringer's (Lactated Ringer's) 1,000 mls @ 100 mls/hr IV .Q10H [facility] Last Admin: 03/17/17 23:01 Dose: Not Given Meropenem 1 gm/ Sodium (Chloride) 100 mls @ 100 mls/hr IVPB Q12 [facility] Last Admin: 03/23/17 10:33 Dose: 100 mls/hr Insulin Human Regular (Humulin R) 0 units SC ACHS [facility] PRN Reason: Protocol Last Admin: 03/23/17 08:45 Dose: 9 u Insulin Lispro Protam/Lispro Human (Humalog Mix 75/25) 12 units SC BID [facility] Last Admin: 03/23/17 08:44 Dose: 12 units Lactobacillus Acidophilus (Bacid Acidophilus) 1 cap PO BID [facility] Metformin HCl (Glucophage) 1,000 mg PO BIDWM [facility] Last Admin: 03/23/17 08:44 Dose: 1,000 mg Pravastatin Sodium (Pravachol) 40 mg PO HS [facility] Last Admin: 03/22/17 22:04 Dose: 40 mg Pregabalin (Lyrica) 100 mg PO TID [facility] Last Admin: 03/23/17 08:56 Dose: 100 mg Sitagliptin Phosphate (Januvia) 100 mg PO DAILY [facility] Last Admin: 03/23/17 08:44 Dose: 100 mg - Labs Labs: 03/21/17 05:30 03/21/17 05:30 PT 11.8 Seconds (9.8-13.1) 03/16/17 15:50 INR 1.1 (0.9-1.2) 03/16/17 15:50 APTT 35.0 Seconds (25.6-37.1) 03/16/17 15:50 - Constitutional Appears: No Acute Distress - Head Exam Head Exam: ATRAUMATIC, NORMAL INSPECTION, NORMOCEPHALIC - Eye Exam Eye Exam: EOMI, Normal appearance, PERRL Pupil Exam: NORMAL ACCOMODATION, PERRL - ENT Exam ENT Exam: Mucous Membranes Moist, Normal Exam - Neck Exam Neck Exam: Full ROM, Normal Inspection. absent: Lymphadenopathy - Respiratory Exam Respiratory Exam: Clear to Ausculation Bilateral, NORMAL BREATHING PATTERN - Cardiovascular Exam Cardiovascular Exam: REGULAR RHYTHM, +S1, +S2. absent: Murmur - GI/Abdominal Exam GI & Abdominal Exam: Soft, Normal Bowel Sounds. absent: Distended, Firm, Guarding, Tenderness - Extremities Exam Extremities Exam: Joint Swelling, Pedal Edema, Tenderness. absent: Full ROM, Normal Capillary Refill, Normal Inspection Additional comments: R foot dressing C/D/I. Erythema. R LE swollen. decreased ROM. sensation intact. - Back Exam Back Exam: NORMAL INSPECTION - Neurological Exam Neurological Exam: Alert, Awake, CN II-XII Intact, Oriented x3 - Psychiatric Exam Psychiatric exam: Normal Affect, Normal Mood - Skin Skin Exam: Dry, Erythema, Warm Assessment and Plan - Assessment and Plan (Free Text) Assessment: 56 y/o F w/ R foot osteomyelitis and gas gangrene s/p drainage with podiatry Plan: -OR tues R BKA vs AKA for osteomyelitis. Patient reports only wanted BKA at this time. -Cont ABX -Medical management -Glucose control -cont wound care per Podiatry -further recs per attending <Gilbert Palomares - Last Filed: 03/23/17 19:47> Objective - Vital Signs/Intake and Output Vital Signs (last 24 hours): Temp Pulse Resp BP Pulse Ox 98.2 F 77 19 130/61 97 03/23/17 16:09 03/23/17 16:09 03/23/17 16:09 03/23/17 16:09 03/23/17 16:09 - Medications Medications: Current Medications Acetaminophen (Tylenol 325mg Tab) 650 mg PO Q4 PRN PRN Reason: Pain, Mild (1-3) Dextrose (Dextrose 50% Inj) 0 ml IV STAT PRN; Protocol PRN Reason: Hyglycemia Protocol Dextrose (Glutose 15) 0 gm PO ONCE PRN; Protocol PRN Reason: Hypoglycemia Protocol Ferrous Sulfate (Feosol) 325 mg PO BID [facility] Last Admin: 03/23/17 16:35 Dose: 325 mg Glucagon (Glucagen Diagnostic Kit) 0 mg IM STAT PRN; Protocol PRN Reason: Hypoglycemia Protocol Hydromorphone HCl (Dilaudid) 1 mg IVP Q4 PRN PRN Reason: Pain (8-10) Last Admin: 03/23/17 13:25 Dose: 1 mg Lactated Ringer's (Lactated Ringer's) 1,000 mls @ 100 mls/hr IV .Q10H [facility] Last Admin: 03/17/17 23:01 Dose: Not Given Meropenem 1 gm/ Sodium (Chloride) 100 mls @ 100 mls/hr IVPB Q12 [facility] Last Admin: 03/23/17 10:33 Dose: 100 mls/hr Insulin Human Regular (Humulin R) 0 units SC ACHS [facility] PRN Reason: Protocol Last Admin: 03/23/17 17:29 Dose: 9 u Insulin Lispro Protam/Lispro Human (Humalog Mix 75/25) 12 units SC BID [facility] Last Admin: 03/23/17 17:30 Dose: 12 units Lactobacillus Acidophilus (Bacid Acidophilus) 1 cap PO BID [facility] Last Admin: 03/23/17 16:35 Dose: 1 cap Metformin HCl (Glucophage) 1,000 mg PO BIDWM [facility] Last Admin: 03/23/17 16:35 Dose: 1,000 mg Metronidazole (Flagyl) 500 mg PO Q8 [facility] Pravastatin Sodium (Pravachol) 40 mg PO HS [facility] Last Admin: 03/22/17 22:04 Dose: 40 mg Pregabalin (Lyrica) 100 mg PO TID [facility] Last Admin: 03/23/17 16:37 Dose: 100 mg Sitagliptin Phosphate (Januvia) 100 mg PO DAILY [facility] Last Admin: 03/23/17 08:44 Dose: 100 mg - Labs Labs: 03/21/17 05:30 03/21/17 05:30 PT 11.8 Seconds (9.8-13.1) 03/16/17 15:50 INR 1.1 (0.9-1.2) 03/16/17 15:50 APTT 35.0 Seconds (25.6-37.1) 03/16/17 15:50 Assessment and Plan - Assessment and Plan (Free Text) Assessment: Will discuss AM with Podiatry and cardiology to make a decision regarding be; low or above knee amputation
--- NOTE | 2017-03-23 11:34 | CP.PCM.PN ---
Subjective - Date & Time of Evaluation Date of Evaluation: 03/23/17 Time of Evaluation: 09:00 - Subjective Subjective: Podiatry Progress Note - Dr. Kaur 56 year old female seen at bedside 11 days s/p right foot and leg incision and drainage for gas gangrene. Patient seen resting comfortably, AAOx3 and NAD. Patient denies any acute events overnight. Patient denies any pain to her foot but reports continued pain to medial and lateral incision sites on her leg. Patient aware she is to go to OR tomorrow for BKA vs. AKA. Patient denies of any F/N/V/C/SOB today. No other pedal complaints at this time. Objective - Vital Signs/Intake and Output Vital Signs (last 24 hours): Temp Pulse Resp BP Pulse Ox 97 F L 76 20 123/60 95 03/23/17 08:27 03/23/17 08:27 03/23/17 08:27 03/23/17 08:27 03/23/17 08:27 - Medications Medications: Current Medications Acetaminophen (Tylenol 325mg Tab) 650 mg PO Q4 PRN PRN Reason: Pain, Mild (1-3) Dextrose (Dextrose 50% Inj) 0 ml IV STAT PRN; Protocol PRN Reason: Hyglycemia Protocol Dextrose (Glutose 15) 0 gm PO ONCE PRN; Protocol PRN Reason: Hypoglycemia Protocol Docusate Sodium (Colace) 100 mg PO BID [facility] Last Admin: 03/23/17 08:44 Dose: Not Given Ferrous Sulfate (Feosol) 325 mg PO BID [facility] Last Admin: 03/23/17 08:44 Dose: 325 mg Glucagon (Glucagen Diagnostic Kit) 0 mg IM STAT PRN; Protocol PRN Reason: Hypoglycemia Protocol Hydromorphone HCl (Dilaudid) 1 mg IVP Q4 PRN PRN Reason: Pain (8-10) Last Admin: 03/23/17 08:36 Dose: 1 mg Clindamycin Phosphate 600 mg/ (Sodium Chloride) 104 mls @ 104 mls/hr IVPB Q12 [facility] Last Admin: 03/23/17 08:43 Dose: 104 mls/hr Lactated Ringer's (Lactated Ringer's) 1,000 mls @ 100 mls/hr IV .Q10H [facility] Last Admin: 03/17/17 23:01 Dose: Not Given Meropenem 1 gm/ Sodium (Chloride) 100 mls @ 100 mls/hr IVPB Q12 [facility] Last Admin: 03/23/17 10:33 Dose: 100 mls/hr Insulin Human Regular (Humulin R) 0 units SC ACHS [facility] PRN Reason: Protocol Last Admin: 03/23/17 08:45 Dose: 9 u Insulin Lispro Protam/Lispro Human (Humalog Mix 75/25) 12 units SC BID [facility] Last Admin: 03/23/17 08:44 Dose: 12 units Lactobacillus Acidophilus (Bacid Acidophilus) 1 cap PO BID [facility] Metformin HCl (Glucophage) 1,000 mg PO BIDWM [facility] Last Admin: 03/23/17 08:44 Dose: 1,000 mg Pravastatin Sodium (Pravachol) 40 mg PO HS [facility] Last Admin: 03/22/17 22:04 Dose: 40 mg Pregabalin (Lyrica) 100 mg PO TID [facility] Last Admin: 03/23/17 08:56 Dose: 100 mg Sitagliptin Phosphate (Januvia) 100 mg PO DAILY [facility] Last Admin: 03/23/17 08:44 Dose: 100 mg - Labs Labs: 03/21/17 05:30 03/21/17 05:30 PT 11.8 Seconds (9.8-13.1) 03/16/17 15:50 INR 1.1 (0.9-1.2) 03/16/17 15:50 APTT 35.0 Seconds (25.6-37.1) 03/16/17 15:50 - Constitutional Appears: Well, Non-toxic, No Acute Distress - Extremities Exam Additional comments: Strikethrough noted on plantar aspect of right foot Vasc: CFT >3 seconds to the digits bilaterally, right leg edema noted from mid calf extending distally to digits, skin temperature warm to cool from proximal to distal Derm: Open incision sites noted at dorsomedial and dorsolateral right foot and at medial and lateral right mid calf; incision to dorsolateral foot is noted to have exposed tendons. R plantar ulceration noted to have moderate serosanguinous drainage. No signs of necrosis noted to deep tissue. No malodor, purulent drainage noted. Tunneling noted from R plantar ulceration site to dorsolateral incision site, no active bleeding noted from the incision site today. Superficial hematomas with ecchymosis noted diffusely across dorsal right midfoot. Bullae noted to anterior right ankle joint Neuro: protective sensation grossly diminished B/L Ortho: tenderness upon palpation of R leg incision sites consistent with surgical procedure and proximity to neural structures - Neurological Exam Neurological Exam: Alert, Awake, Oriented x3 - Psychiatric Exam Psychiatric exam: Depressed, Normal Affect, Normal Mood Assessment and Plan - Assessment and Plan (Free Text) Assessment: 56 year old female seen 11 days s/p right foot and leg incision and drainage secondary to gas gangrene Plan: Patient seen and evaluated at bedside Charts, labs and vitals reviewed = afebrile Dressing changed using plain packing, ABD pads, DSD, and SHLOMO Continue IV abx per ID = Meropenem, Clindamycin To OR with Dr. Palomares tomorrow for BKA vs. AKA. Per general surgery, patient agreeable to BKA Mehreen on board and agrees with plan for likely BKA Continue with local wound care Podiatry will continue to follow while patient in house
[2017-03-23] MEDS: Lactobacillus Acidophilus 500 MU Cap PO SCH (16:35)
[2017-03-23] MEDS: Pravastatin Sodium 40 MG TAB PO SCH (21:46)
[2017-03-24 06:08] LABS: HEMATOCRIT 29.8 % (34.0-47.0); MEAN CELL VOLUME 88.1 fl (81.0-99.0); MEAN CORPUSCULAR HEMOGLOBIN 28.7 pg (27.0-31.0); MEAN CORPUSCULAR HGB CONC 32.5 g/dL (33.0-37.0); RED CELL DISTRIBUTION WIDTH 16.8 % (11.5-14.5); WHITE BLOOD COUNT 10.3 K/uL (4.8-10.8)
[2017-03-24 06:37] LABS: ALB/GLOB RATIO 0.8 (1.0-2.1); ALKALINE PHOSPHATASE 303 U/L (38-126); ALT/SGPT 28 U/L (9-52); AST/SGOT 23 U/L (14-36); BILIRUBIN,TOTAL 0.3 mg/dl (0.2-1.3); BLOOD UREA NITROGEN 17 mg/dl (7-17); CALCIUM 8.6 mg/dL (8.4-10.2); CARBON DIOXIDE 26 mmol/L (22-30); CHLORIDE 100 mmol/L (98-107); GFR AFRICAN-AMERICAN > 60; GLUCOSE,RANDOM 223 mg/dL (65-105); POTASSIUM 4.3 MMOL/L (3.6-5.0); SODIUM 133 mmol/l (132-148); TOTAL PROTEIN 6.6 G/DL (6.3-8.2)
[2017-03-24] MEDS: Insulin Regular 100 units/ml SC SCH ×4 (06:49→22:15)
[2017-03-24 06:52] LABS: PARTIAL THROMBOPLASTIN TIME 34.8 Seconds (25.6-37.1)
--- NOTE | 2017-03-24 07:36 | CP.PCM.PN ---
Subjective - Date & Time of Evaluation Date of Evaluation: 03/24/17 Time of Evaluation: 06:50 - Subjective Subjective: Vascular Surgery- [place] Pt S&E at bedside this AM. No acute events overnight. Pt tolerating diet well. Denies current F/C CP/SOB N/V/D. Right LE dressing C/D/I Objective - Vital Signs/Intake and Output Vital Signs (last 24 hours): Temp Pulse Resp BP Pulse Ox 97.9 F 76 20 114/63 97 03/24/17 01:29 03/24/17 01:03/24/17 01:03/24/17 01:03/24/17 01:29 - Medications Medications: Current Medications Acetaminophen (Tylenol 325mg Tab) 650 mg PO Q4 PRN PRN Reason: Pain, Mild (1-3) Dextrose (Dextrose 50% Inj) 0 ml IV STAT PRN; Protocol PRN Reason: Hyglycemia Protocol Dextrose (Glutose 15) 0 gm PO ONCE PRN; Protocol PRN Reason: Hypoglycemia Protocol Ferrous Sulfate (Feosol) 325 mg PO BID [facility] Last Admin: 03/23/17 16:35 Dose: 325 mg Glucagon (Glucagen Diagnostic Kit) 0 mg IM STAT PRN; Protocol PRN Reason: Hypoglycemia Protocol Hydromorphone HCl (Dilaudid) 1 mg IVP Q4 PRN PRN Reason: Pain (8-10) Last Admin: 03/24/17 00:43 Dose: 1 mg Lactated Ringer's (Lactated Ringer's) 1,000 mls @ 100 mls/hr IV .Q10H [facility] Last Admin: 03/17/17 23:01 Dose: Not Given Meropenem 1 gm/ Sodium (Chloride) 100 mls @ 100 mls/hr IVPB Q12 [facility] Last Admin: 03/23/17 20:10 Dose: 100 mls/hr Insulin Human Regular (Humulin R) 0 units SC ACHS [facility] PRN Reason: Protocol Last Admin: 03/24/17 06:49 Dose: 6 u Insulin Lispro Protam/Lispro Human (Humalog Mix 75/25) 12 units SC BID [facility] Last Admin: 03/23/17 17:30 Dose: 12 units Lactobacillus Acidophilus (Bacid Acidophilus) 1 cap PO BID [facility] Last Admin: 03/23/17 16:35 Dose: 1 cap Metformin HCl (Glucophage) 1,000 mg PO BIDWM [facility] Last Admin: 03/23/17 16:35 Dose: 1,000 mg Metronidazole (Flagyl) 500 mg PO Q8 [facility] Last Admin: 03/24/17 00:39 Dose: 500 mg Pravastatin Sodium (Pravachol) 40 mg PO HS [facility] Last Admin: 03/23/17 21:46 Dose: 40 mg Pregabalin (Lyrica) 100 mg PO TID [facility] Last Admin: 03/23/17 16:37 Dose: 100 mg Sitagliptin Phosphate (Januvia) 100 mg PO DAILY [facility] Last Admin: 03/23/17 08:44 Dose: 100 mg - Labs Labs: 03/24/17 05:50 03/24/17 05:50 PT 11.6 Seconds (9.8-13.1) 03/24/17 05:50 INR 1.1 (0.9-1.2) 03/24/17 05:50 APTT 34.8 Seconds (25.6-37.1) 03/24/17 05:50 - Constitutional Appears: No Acute Distress - Eye Exam Eye Exam: EOMI - ENT Exam ENT Exam: Mucous Membranes Moist - Respiratory Exam Respiratory Exam: NORMAL BREATHING PATTERN. absent: Accessory Muscle Use, Rales , Rhonchi, Wheezes - Cardiovascular Exam Cardiovascular Exam: +S1, +S2 - GI/Abdominal Exam GI & Abdominal Exam: absent: Distended, Firm, Rigid, Soft, Tenderness - Extremities Exam Additional comments: Left pedal pulse +2. RLE dressing C/D/I - Neurological Exam Neurological Exam: Alert, Awake, Oriented x3 - Skin Skin Exam: Normal Color, Warm Assessment and Plan - Assessment and Plan (Free Text) Assessment: 56F w/ R foot osteomyelitis and gas gangrene s/p drainage with podiatry Plan: - IVabx - glucose control - medical management - pain control - cdiff contact precaution - Plan for OR this week for BKA or AKA - further recs per Dr. Jelani Figueroa PGY1
--- NOTE | 2017-03-24 08:20 | CP.PCM.PN ---
Subjective - Date & Time of Evaluation Date of Evaluation: 03/24/17 Time of Evaluation: : - Subjective Subjective: Podiatry Progress Note - Dr. Kaur 56 y/o female seen at bedside 12days s/p R foot and leg I&D for gas gangrene. Patient seen resting comfortably in bed, AAOx3 and NAD. Patient denies any acute events overnight. Patient denies any pain to her foot but reports continued pain to medial and lateral incision sites on her leg, especially during dressing changes. Patient saw Dr. Palomares's team this morning and is awaiting a finalized time and date for her surgery. Pt knows that she will be taken to the OR for BKA vs. AKA and is awaiting final decision. Patient denies of any F/N/V/C/SOB today. No other pedal complaints at this time. Objective - Vital Signs/Intake and Output Vital Signs (last 24 hours): Temp Pulse Resp BP Pulse Ox 97.9 F 70 20 119/59 L 97 03/24/17 08:10 03/24/17 08:10 03/24/17 08:10 03/24/17 08:10 03/24/17 08:10 - Medications Medications: Current Medications Acetaminophen (Tylenol 325mg Tab) 650 mg PO Q4 PRN PRN Reason: Pain, Mild (1-3) Dextrose (Dextrose 50% Inj) 0 ml IV STAT PRN; Protocol PRN Reason: Hyglycemia Protocol Dextrose (Glutose 15) 0 gm PO ONCE PRN; Protocol PRN Reason: Hypoglycemia Protocol Ferrous Sulfate (Feosol) 325 mg PO BID [facility] Last Admin: 03/23/17 16:35 Dose: 325 mg Glucagon (Glucagen Diagnostic Kit) 0 mg IM STAT PRN; Protocol PRN Reason: Hypoglycemia Protocol Hydromorphone HCl (Dilaudid) 1 mg IVP Q4 PRN PRN Reason: Pain (8-10) Last Admin: 03/24/17 07:35 Dose: 1 mg Lactated Ringer's (Lactated Ringer's) 1,000 mls @ 100 mls/hr IV .Q10H [facility] Last Admin: 03/17/17 23:01 Dose: Not Given Meropenem 1 gm/ Sodium (Chloride) 100 mls @ 100 mls/hr IVPB Q12 [facility] Last Admin: 03/23/17 20:10 Dose: 100 mls/hr Insulin Human Regular (Humulin R) 0 units SC ACHS [facility] PRN Reason: Protocol Last Admin: 03/24/17 06:49 Dose: 6 u Insulin Lispro Protam/Lispro Human (Humalog Mix 75/25) 12 units SC BID [facility] Last Admin: 03/23/17 17:30 Dose: 12 units Lactobacillus Acidophilus (Bacid Acidophilus) 1 cap PO BID [facility] Last Admin: 03/23/17 16:35 Dose: 1 cap Metformin HCl (Glucophage) 1,000 mg PO BIDWM [facility] Last Admin: 03/23/17 16:35 Dose: 1,000 mg Metronidazole (Flagyl) 500 mg PO Q8 [facility] Last Admin: 03/24/17 00:39 Dose: 500 mg Pravastatin Sodium (Pravachol) 40 mg PO HS [facility] Last Admin: 03/23/17 21:46 Dose: 40 mg Pregabalin (Lyrica) 100 mg PO TID [facility] Last Admin: 03/23/17 16:37 Dose: 100 mg Sitagliptin Phosphate (Januvia) 100 mg PO DAILY [facility] Last Admin: 03/23/17 08:44 Dose: 100 mg - Labs Labs: 03/24/17 05:50 03/24/17 05:50 PT 11.6 Seconds (9.8-13.1) 03/24/17 05:50 INR 1.1 (0.9-1.2) 03/24/17 05:50 APTT 34.8 Seconds (25.6-37.1) 03/24/17 05:50 - Constitutional Appears: Well, Non-toxic, No Acute Distress - Extremities Exam Additional comments: Strikethrough noted to dressing on plantar aspect of right foot Vasc: CFT >3 seconds to the digits B/L, R leg edema noted from mid calf extending distally to digits, skin temperature warm to cool from proximal to distal Derm: Open incision sites noted at dorsomedial and dorsolateral right foot and at medial and lateral right mid calf; incision to dorsolateral foot is noted to have exposed tendons. R plantar ulceration noted to have mild to moderate serosanguinous drainage at this time. No signs of necrosis noted to deep tissue. No malodor, purulent drainage noted. Tunneling is noted from R plantar ulceration site to dorsolateral incision site. No active bleeding noted from the incision site today. Superficial hematomas with ecchymosis noted diffusely across dorsal right midfoot. Bullae noted to anterior right ankle joint Neuro: protective sensation grossly diminished B/L Ortho: tenderness upon palpation of R leg incision sites consistent with surgical procedure and proximity to neural structures - Neurological Exam Neurological Exam: Alert, Awake, Oriented x3 - Psychiatric Exam Psychiatric exam: Normal Affect, Normal Mood Assessment and Plan - Assessment and Plan (Free Text) Assessment: 56 year old female seen 12 days s/p right foot and leg incision and drainage secondary to gas gangrene Plan: Patient seen and evaluated at bedside Discussed plan in detail with attending Dr. Kaur Charts, labs and vitals reviewed = afebrile, WBC 10.3 Dressing changed using plain packing, xeroform, ABD, DSD and SHLOMO bandage Continue IV abx per ID = Meropenem, Clindamycin To OR with Dr. Palomares sometime this week for BKA vs. AKA. Per general surgery, patient agreeable to BKA Mehreen on board and agrees with plan for likely BKA Continue with local wound care Podiatry will continue to follow while patient in house
[2017-03-24] MEDS: Lactobacillus Acidophilus 500 MU Cap PO SCH ×2 (09:28→17:02)
[2017-03-24] MEDS: Insulin Lispro Mix 75/25 100 units/ml (HumaLog) 10ml SC SCH ×2 (09:29→17:04)
[2017-03-24] MEDS: Meropenem 1 GM in Sodium Chloride 0.9% 100 ML IVPB SCH ×2 (09:30→21:30)
--- NOTE | 2017-03-24 11:39 | CP.PCM.PN ---
Subjective - Date & Time of Evaluation Date of Evaluation: 03/24/17 Time of Evaluation: 11:52 - Subjective Subjective: Patient seen and examined bedside with attending. No overnight events. No complaints offered from patient. She is lying in bed, no distress or discomfort. Scheduled for OR sometime this week for Right BKA, possible AKA. Patient aware of plan. continue with IV antibiotics as ordered for right foot infection. Wound care as per podiatry. No malodor or discharge noted on patients dressing this morning. Glycemic control is improving on Humalog 75/25, 12 units BID. However she is requiring good amount of coverage insulin. Will adjust BID dosing of insulin today. Objective - Vital Signs/Intake and Output Vital Signs (last 24 hours): Temp Pulse Resp BP Pulse Ox 97.9 F 70 20 119/59 L 97 03/24/17 08:10 03/24/17 08:10 03/24/17 08:10 03/24/17 08:10 03/24/17 08:10 - Medications Medications: Current Medications Acetaminophen (Tylenol 325mg Tab) 650 mg PO Q4 PRN PRN Reason: Pain, Mild (1-3) Dextrose (Dextrose 50% Inj) 0 ml IV STAT PRN; Protocol PRN Reason: Hyglycemia Protocol Dextrose (Glutose 15) 0 gm PO ONCE PRN; Protocol PRN Reason: Hypoglycemia Protocol Ferrous Sulfate (Feosol) 325 mg PO BID [facility] Last Admin: 03/24/17 09:28 Dose: 325 mg Glucagon (Glucagen Diagnostic Kit) 0 mg IM STAT PRN; Protocol PRN Reason: Hypoglycemia Protocol Hydromorphone HCl (Dilaudid) 1 mg IVP Q4 PRN PRN Reason: Pain (8-10) Last Admin: 03/24/17 07:35 Dose: 1 mg Lactated Ringer's (Lactated Ringer's) 1,000 mls @ 100 mls/hr IV .Q10H [facility] Last Admin: 03/17/17 23:01 Dose: Not Given Meropenem 1 gm/ Sodium (Chloride) 100 mls @ 100 mls/hr IVPB Q12 [facility] Last Admin: 03/24/17 09:30 Dose: 100 mls/hr Insulin Human Regular (Humulin R) 0 units SC ACHS [facility] PRN Reason: Protocol Last Admin: 03/24/17 06:49 Dose: 6 u Insulin Lispro Protam/Lispro Human (Humalog Mix 75/25) 12 units SC BID [facility] Last Admin: 03/24/17 09:29 Dose: 12 units Lactobacillus Acidophilus (Bacid Acidophilus) 1 cap PO BID [facility] Last Admin: 03/24/17 09:28 Dose: 1 cap Metformin HCl (Glucophage) 1,000 mg PO BIDWM [facility] Last Admin: 03/24/17 09:29 Dose: 1,000 mg Metronidazole (Flagyl) 500 mg PO Q8 [facility] Last Admin: 03/24/17 09:29 Dose: 500 mg Pravastatin Sodium (Pravachol) 40 mg PO HS [facility] Last Admin: 03/23/17 21:46 Dose: 40 mg Pregabalin (Lyrica) 100 mg PO TID [facility] Last Admin: 03/24/17 09:30 Dose: 100 mg Sitagliptin Phosphate (Januvia) 100 mg PO DAILY [facility] Last Admin: 03/24/17 09:30 Dose: 100 mg - Labs Labs: 03/24/17 05:50 03/24/17 05:50 PT 11.6 Seconds (9.8-13.1) 03/24/17 05:50 INR 1.1 (0.9-1.2) 03/24/17 05:50 APTT 34.8 Seconds (25.6-37.1) 03/24/17 05:50 - Constitutional Appears: Well, No Acute Distress - ENT Exam ENT Exam: Mucous Membranes Moist - Respiratory Exam Respiratory Exam: NORMAL BREATHING PATTERN - Cardiovascular Exam Cardiovascular Exam: REGULAR RHYTHM, +S1, +S2 - GI/Abdominal Exam GI & Abdominal Exam: Soft. absent: Distended, Guarding, Tenderness - Extremities Exam Additional comments: right lower extremity: dressing clean dry and intact, no malodor noted. - Neurological Exam Neurological Exam: Alert, Awake, CN II-XII Intact, Oriented x3 Additional comments: gait not assessed - Skin Skin Exam: Dry Additional comments: no skin abnormalities of areas exposed Assessment and Plan (1) Gangrene of foot Assessment & Plan: 56 year old morbidly obese female with uncontrolled DM, with gangrene and OM of her foot. Cultures +corynebacterium. Pt remains afebrile, no leukocytosis -For OR this week, Surgery and podiatry are following. -continue IV antibiotics, flagyl and merrem as per ID. Status: Acute (2) Osteomyelitis of foot Status: Acute (3) Type 2 diabetes mellitus with hyperglycemia Assessment & Plan: Currently on humalog 75/25 12 units sc BID, however requiring good amount of coverage insulin, will increase humalog to 16 units today -continue metformin/januvia -accuchecks ACHS Status: Chronic (4) Anemia Assessment & Plan: stable, follow h/h Status: Acute (5) DVT prophylaxis Assessment & Plan: scds Status: Acute
--- NOTE | 2017-03-24 18:11 | CP.PCM.PN ---
Subjective - Date & Time of Evaluation Date of Evaluation: 03/24/17 Time of Evaluation: 18:08 - Subjective Subjective: I D NOTE STOPPED CLINDAMYCIN ON 03/23/17 STARTED ORAL FLAGYL FOR DIARRHEA(POS C.DIFF) HAS STOPPED SO FAR TODAY AKA OR BKA THIS WEEK Objective - Vital Signs/Intake and Output Vital Signs (last 24 hours): Temp Pulse Resp BP Pulse Ox 98.1 F 74 18 120/61 98 03/24/17 16:34 03/24/17 16:34 03/24/17 16:34 03/24/17 16:34 03/24/17 16:34 - Medications Medications: Current Medications Acetaminophen (Tylenol 325mg Tab) 650 mg PO Q4 PRN PRN Reason: Pain, Mild (1-3) Dextrose (Dextrose 50% Inj) 0 ml IV STAT PRN; Protocol PRN Reason: Hyglycemia Protocol Dextrose (Glutose 15) 0 gm PO ONCE PRN; Protocol PRN Reason: Hypoglycemia Protocol Ferrous Sulfate (Feosol) 325 mg PO BID [facility] Last Admin: 03/24/17 17:03 Dose: 325 mg Glucagon (Glucagen Diagnostic Kit) 0 mg IM STAT PRN; Protocol PRN Reason: Hypoglycemia Protocol Hydromorphone HCl (Dilaudid) 1 mg IVP Q4 PRN PRN Reason: Pain (8-10) Last Admin: 03/24/17 17:44 Dose: 1 mg Lactated Ringer's (Lactated Ringer's) 1,000 mls @ 100 mls/hr IV .Q10H [facility] Last Admin: 03/17/17 23:01 Dose: Not Given Meropenem 1 gm/ Sodium (Chloride) 100 mls @ 100 mls/hr IVPB Q12 [facility] Last Admin: 03/24/17 09:30 Dose: 100 mls/hr Lactated Ringer's (Lactated Ringer's) 1,000 mls @ 125 mls/hr IV .Q8H [facility] Insulin Human Regular (Humulin R) 0 units SC ACHS [facility] PRN Reason: Protocol Last Admin: 03/24/17 17:07 Dose: 9 u Insulin Lispro Protam/Lispro Human (Humalog Mix 75/25) 16 units SC BID [facility] Last Admin: 03/24/17 17:04 Dose: 16 units Lactobacillus Acidophilus (Bacid Acidophilus) 1 cap PO BID [facility] Last Admin: 03/24/17 17:02 Dose: 1 cap Metformin HCl (Glucophage) 1,000 mg PO BIDWM [facility] Last Admin: 03/24/17 17:03 Dose: 1,000 mg Metronidazole (Flagyl) 500 mg PO Q8 [facility] Last Admin: 03/24/17 17:03 Dose: 500 mg Pravastatin Sodium (Pravachol) 40 mg PO HS [facility] Last Admin: 03/23/17 21:46 Dose: 40 mg Pregabalin (Lyrica) 100 mg PO TID [facility] Last Admin: 03/24/17 17:06 Dose: 100 mg Sitagliptin Phosphate (Januvia) 100 mg PO DAILY [facility] Last Admin: 03/24/17 09:30 Dose: 100 mg - Labs Labs: 03/24/17 05:50 03/24/17 05:50 PT 11.6 Seconds (9.8-13.1) 03/24/17 05:50 INR 1.1 (0.9-1.2) 03/24/17 05:50 APTT 34.8 Seconds (25.6-37.1) 03/24/17 05:50
[2017-03-24] MEDS ORDERED: Lactated Ringer's 1,000 ML IV SCH (22:00)
[2017-03-24] MEDS: Pravastatin Sodium 40 MG TAB PO SCH (22:14)
--- NOTE | 2017-03-25 07:09 | CP.PCM.PN ---
Subjective - Date & Time of Evaluation Date of Evaluation: 03/25/17 Time of Evaluation: 06:45 - Subjective Subjective: Vascular Surgery- Dr. Palomares Pt S&E at bedside this AM. no acute events overnight. RLE dressing C/D/I. No recent episode of diarrhea. Denies F/C/CP/SOB/N/V. Objective - Vital Signs/Intake and Output Vital Signs (last 24 hours): Temp Pulse Resp BP Pulse Ox 98.9 F 75 18 127/62 98 03/25/17 00:44 03/25/17 00:44 03/25/17 00:44 03/25/17 00:44 03/25/17 00:44 - Medications Medications: Current Medications Acetaminophen (Tylenol 325mg Tab) 650 mg PO Q4 PRN PRN Reason: Pain, Mild (1-3) Dextrose (Dextrose 50% Inj) 0 ml IV STAT PRN; Protocol PRN Reason: Hyglycemia Protocol Dextrose (Glutose 15) 0 gm PO ONCE PRN; Protocol PRN Reason: Hypoglycemia Protocol Ferrous Sulfate (Feosol) 325 mg PO BID [facility] Last Admin: 03/24/17 17:03 Dose: 325 mg Glucagon (Glucagen Diagnostic Kit) 0 mg IM STAT PRN; Protocol PRN Reason: Hypoglycemia Protocol Hydromorphone HCl (Dilaudid) 1 mg IVP Q4 PRN PRN Reason: Pain (8-10) Last Admin: 03/25/17 03:03 Dose: 1 mg Lactated Ringer's (Lactated Ringer's) 1,000 mls @ 100 mls/hr IV .Q10H [facility] Last Admin: 03/17/17 23:01 Dose: Not Given Meropenem 1 gm/ Sodium (Chloride) 100 mls @ 100 mls/hr IVPB Q12 [facility] Last Admin: 03/24/17 21:30 Dose: 100 mls/hr Lactated Ringer's (Lactated Ringer's) 1,000 mls @ 125 mls/hr IV .Q8H [facility] Insulin Human Regular (Humulin R) 0 units SC ACHS [facility] PRN Reason: Protocol Last Admin: 03/24/17 22:15 Dose: 6 u Insulin Lispro Protam/Lispro Human (Humalog Mix 75/25) 16 units SC BID [facility] Last Admin: 03/24/17 17:04 Dose: 16 units Lactobacillus Acidophilus (Bacid Acidophilus) 1 cap PO BID [facility] Last Admin: 03/24/17 17:02 Dose: 1 cap Metformin HCl (Glucophage) 1,000 mg PO BIDWM [facility] Last Admin: 03/24/17 17:03 Dose: 1,000 mg Metronidazole (Flagyl) 500 mg PO Q8 [facility] Last Admin: 03/25/17 00:17 Dose: 500 mg Pravastatin Sodium (Pravachol) 40 mg PO HS [facility] Last Admin: 03/24/17 22:14 Dose: 40 mg Pregabalin (Lyrica) 100 mg PO TID [facility] Last Admin: 03/24/17 17:06 Dose: 100 mg Sitagliptin Phosphate (Januvia) 100 mg PO DAILY [facility] Last Admin: 03/24/17 09:30 Dose: 100 mg - Labs Labs: 03/24/17 05:50 03/24/17 05:50 PT 11.6 Seconds (9.8-13.1) 03/24/17 05:50 INR 1.1 (0.9-1.2) 03/24/17 05:50 APTT 34.8 Seconds (25.6-37.1) 03/24/17 05:50 - Constitutional Appears: No Acute Distress - Eye Exam Eye Exam: EOMI - ENT Exam ENT Exam: Mucous Membranes Moist - Respiratory Exam Respiratory Exam: NORMAL BREATHING PATTERN. absent: Accessory Muscle Use, Rales , Rhonchi - Cardiovascular Exam Cardiovascular Exam: +S1, +S2 - GI/Abdominal Exam GI & Abdominal Exam: Distended, Soft. absent: Firm, Rigid, Tenderness - Neurological Exam Neurological Exam: Alert, Awake, Oriented x3 Additional comments: bilateral palpable popliteal pulses. Assessment and Plan - Assessment and Plan (Free Text) Assessment: 56F w/ R foot osteomyelitis and gas gangrene s/p drainage with podiatry Plan: - abx and recs per ID - glucose control - medical management - pain control - cdiff contact precaution - Plan for OR tomorrow or Thursday for BKA or AKA - further recs per Dr. Jelani Figueroa PGY1
[2017-03-25 07:20] LABS: BASO # 0.1 K/uL (0.0-0.2); BASO % 0.7 % (0.0-2.0); EOS # 0.1 K/uL (0.0-0.7); EOS % 1.1 % (0.0-4.0); HEMATOCRIT 29.4 % (34.0-47.0); LYMPH # 1.4 K/uL (1.0-4.3); LYMPH % 14.4 % (20.0-40.0); MEAN CELL VOLUME 88.3 fl (81.0-99.0); MEAN CORPUSCULAR HEMOGLOBIN 28.5 pg (27.0-31.0); MEAN CORPUSCULAR HGB CONC 32.3 g/dL (33.0-37.0); MEAN PLATELET VOLUME 8.9 fl (7.2-11.7); MONO # 0.8 K/uL (0.0-0.8); MONO % 8.2 % (0.0-10.0); NEUT # 7.2 K/uL (1.8-7.0); NEUT % 75.6 % (50.0-75.0); RED CELL DISTRIBUTION WIDTH 16.8 % (11.5-14.5); WHITE BLOOD COUNT 9.5 K/uL (4.8-10.8)
[2017-03-25 07:28] LABS: ALB/GLOB RATIO 0.8 (1.0-2.1); ALKALINE PHOSPHATASE 287 U/L (38-126); ALT/SGPT 23 U/L (9-52); AST/SGOT 23 U/L (14-36); BILIRUBIN,TOTAL 0.3 mg/dl (0.2-1.3); BLOOD UREA NITROGEN 22 mg/dl (7-17); CALCIUM 8.6 mg/dL (8.4-10.2); CARBON DIOXIDE 24 mmol/L (22-30); CHLORIDE 103 mmol/L (98-107); GFR AFRICAN-AMERICAN > 60; GLUCOSE,RANDOM 310 mg/dL (65-105); POTASSIUM 4.5 MMOL/L (3.6-5.0); SODIUM 134 mmol/l (132-148); TOTAL PROTEIN 6.6 G/DL (6.3-8.2)
[2017-03-25 07:37] LABS: PARTIAL THROMBOPLASTIN TIME 34.2 Seconds (25.6-37.1)
[2017-03-25] MEDS: Lactobacillus Acidophilus 500 MU Cap PO SCH ×2 (09:16→17:53)
[2017-03-25] MEDS: Insulin Lispro Mix 75/25 100 units/ml (HumaLog) 10ml SC SCH ×2 (09:17→17:55)
[2017-03-25] MEDS: Insulin Regular 100 units/ml SC SCH ×4 (09:18→21:25)
[2017-03-25] MEDS: Meropenem 1 GM in Sodium Chloride 0.9% 100 ML IVPB SCH ×2 (09:19→20:38)
--- NOTE | 2017-03-25 09:21 | CP.PCM.PN ---
Subjective - Date & Time of Evaluation Date of Evaluation: 03/25/17 Time of Evaluation: 09:20 - Subjective Subjective: Podiatry Progress Note - Dr. Kaur 56 y/o female seen at bedside 13 days s/p R foot and leg I&D for gas gangrene. Patient seen resting comfortably in bed, AAOx3 and NAD. Patient denies any acute events overnight. Patient denies any pain to her foot or leg today and says the pain medicine is controlling her discomfort. Patient is still awaiting a finalized time and date for her surgery and is agreeable to the possibility of an AKA once the surgery team can properly evaluate the condition of the leg intra-operatively. Patient denies of any F/N/V/C/SOB today. Pt admits to mild diarrhea which is being managed with Flagyl. No other pedal complaints at this time. Objective - Vital Signs/Intake and Output Vital Signs (last 24 hours): Temp Pulse Resp BP Pulse Ox 97.8 F 70 20 116/55 L 95 03/25/17 08:48 03/25/17 08:48 03/25/17 08:48 03/25/17 08:48 03/25/17 08:48 - Medications Medications: Current Medications Acetaminophen (Tylenol 325mg Tab) 650 mg PO Q4 PRN PRN Reason: Pain, Mild (1-3) Dextrose (Dextrose 50% Inj) 0 ml IV STAT PRN; Protocol PRN Reason: Hyglycemia Protocol Dextrose (Glutose 15) 0 gm PO ONCE PRN; Protocol PRN Reason: Hypoglycemia Protocol Ferrous Sulfate (Feosol) 325 mg PO BID [facility] Last Admin: 03/24/17 17:03 Dose: 325 mg Glucagon (Glucagen Diagnostic Kit) 0 mg IM STAT PRN; Protocol PRN Reason: Hypoglycemia Protocol Hydromorphone HCl (Dilaudid) 1 mg IVP Q4 PRN PRN Reason: Pain (8-10) Last Admin: 03/25/17 07:12 Dose: 1 mg Lactated Ringer's (Lactated Ringer's) 1,000 mls @ 100 mls/hr IV .Q10H [facility] Last Admin: 03/17/17 23:01 Dose: Not Given Meropenem 1 gm/ Sodium (Chloride) 100 mls @ 100 mls/hr IVPB Q12 [facility] Last Admin: 03/24/17 21:30 Dose: 100 mls/hr Lactated Ringer's (Lactated Ringer's) 1,000 mls @ 125 mls/hr IV .Q8H [facility] Insulin Human Regular (Humulin R) 0 units SC ACHS [facility] PRN Reason: Protocol Last Admin: 03/24/17 22:15 Dose: 6 u Insulin Lispro Protam/Lispro Human (Humalog Mix 75/25) 16 units SC BID [facility] Last Admin: 03/24/17 17:04 Dose: 16 units Lactobacillus Acidophilus (Bacid Acidophilus) 1 cap PO BID [facility] Last Admin: 03/24/17 17:02 Dose: 1 cap Metformin HCl (Glucophage) 1,000 mg PO BIDWM [facility] Last Admin: 03/24/17 17:03 Dose: 1,000 mg Metronidazole (Flagyl) 500 mg PO Q8 [facility] Last Admin: 03/25/17 00:17 Dose: 500 mg Pravastatin Sodium (Pravachol) 40 mg PO HS [facility] Last Admin: 03/24/17 22:14 Dose: 40 mg Pregabalin (Lyrica) 100 mg PO TID [facility] Last Admin: 03/24/17 17:06 Dose: 100 mg Sitagliptin Phosphate (Januvia) 100 mg PO DAILY [facility] Last Admin: 03/24/17 09:30 Dose: 100 mg - Labs Labs: 03/25/17 06:00 03/25/17 06:00 PT 12.7 Seconds (9.8-13.1) 03/25/17 06:00 INR 1.2 (0.9-1.2) 03/25/17 06:00 APTT 34.2 Seconds (25.6-37.1) 03/25/17 06:00 - Constitutional Appears: Well, Non-toxic, No Acute Distress - Extremities Exam Additional comments: Strikethrough noted to dressing on plantar aspect of right midfoot Vasc: CFT >3 seconds to the digits B/L, R leg edema noted from mid calf extending distally to digits, skin temperature warm to cool from proximal to distal Derm: Open incision sites noted at dorsomedial and dorsolateral right foot and at medial and lateral right mid calf; incision to dorsolateral foot is noted to have exposed tendons. R plantar ulceration noted to have mild to moderate serosanguinous drainage at this time. No signs of necrosis noted to deep tissue. No malodor, purulent drainage noted. Tunneling is noted from R plantar ulceration site to dorsolateral incision site. No active bleeding noted from the incision site today. Superficial hematomas with ecchymosis noted diffusely across dorsal right midfoot. Bullae noted to anterior right ankle joint Neuro: protective sensation grossly diminished B/L Ortho: tenderness upon palpation of R leg incision sites consistent with surgical procedure and proximity to neural structures - Neurological Exam Neurological Exam: Alert, Awake, Oriented x3 - Psychiatric Exam Psychiatric exam: Normal Affect, Normal Mood Assessment and Plan - Assessment and Plan (Free Text) Assessment: 56 year old female seen 13 days s/p right foot and leg incision and drainage secondary to gas gangrene Plan: Patient seen and evaluated at bedside Discussed plan in detail with attending Dr. Kaur Charts, labs and vitals reviewed = afebrile, WBC 9.5 Dressing changed using plain packing, xeroform, ABD, DSD and SHLOMO bandage Continue abx per ID = IV Meropenem, PO Flagyl To OR with Dr. Palomares sometime this week for BKA vs. AKA. Per general surgery, patient agreeable to BKA or AKA depending on condition of leg, to be determined intra-operatively Continue with local wound care Podiatry will continue to follow while patient in house
--- NOTE | 2017-03-25 13:59 | CP.PCM.PN ---
Subjective - Date & Time of Evaluation Date of Evaluation: 03/25/17 Time of Evaluation: 14:47 - Subjective Subjective: Patient continues to have hyperglycemia, despite current insulin regimen. She endorses her home insulin: Lantus 40 units qhs, Novolog 40 units with meals , sugars are never controlled as per patient. She has not been eating hospital food, instead orders out. Will have rn diabetes educator and hospital account liaison see patient prior to discharge. She is scheduled for OR tomorrow for right BKA, possible AKA. She continues to have diarrhea, will start probiotic. NPO and IVF starting at midnight. Objective - Vital Signs/Intake and Output Vital Signs (last 24 hours): Temp Pulse Resp BP Pulse Ox 97.8 F 70 20 116/55 L 95 03/25/17 08:48 03/25/17 08:48 03/25/17 08:48 03/25/17 08:48 03/25/17 08:48 - Medications Medications: Current Medications Acetaminophen (Tylenol 325mg Tab) 650 mg PO Q4 PRN PRN Reason: Pain, Mild (1-3) Dextrose (Dextrose 50% Inj) 0 ml IV STAT PRN; Protocol PRN Reason: Hyglycemia Protocol Dextrose (Glutose 15) 0 gm PO ONCE PRN; Protocol PRN Reason: Hypoglycemia Protocol Ferrous Sulfate (Feosol) 325 mg PO BID [facility] Last Admin: 03/25/17 09:16 Dose: 325 mg Glucagon (Glucagen Diagnostic Kit) 0 mg IM STAT PRN; Protocol PRN Reason: Hypoglycemia Protocol Heparin Sodium (Porcine) (Heparin) 5,000 units SC Q8 [facility] PRN Reason: Protocol Hydromorphone HCl (Dilaudid) 1 mg IVP Q4 PRN PRN Reason: Pain (8-10) Last Admin: 03/25/17 11:36 Dose: 1 mg Lactated Ringer's (Lactated Ringer's) 1,000 mls @ 100 mls/hr IV .Q10H [facility] Last Admin: 03/17/17 23:01 Dose: Not Given Meropenem 1 gm/ Sodium (Chloride) 100 mls @ 100 mls/hr IVPB Q12 [facility] Last Admin: 03/25/17 09:19 Dose: 100 mls/hr Lactated Ringer's (Lactated Ringer's) 1,000 mls @ 125 mls/hr IV .Q8H [facility] Insulin Human Regular (Humulin R) 0 units SC ACHS [facility] PRN Reason: Protocol Last Admin: 03/25/17 12:42 Dose: 12 u Insulin Lispro Protam/Lispro Human (Humalog Mix 75/25) 16 units SC BID [facility] Last Admin: 03/25/17 09:17 Dose: 16 units Lactobacillus Acidophilus (Bacid Acidophilus) 1 cap PO BID [facility] Last Admin: 03/25/17 09:16 Dose: 1 cap Metformin HCl (Glucophage) 1,000 mg PO BIDWM [facility] Last Admin: 03/25/17 09:16 Dose: 1,000 mg Metronidazole (Flagyl) 500 mg PO Q8 [facility] Last Admin: 03/25/17 09:20 Dose: 500 mg Ondansetron HCl (Zofran Inj) 4 mg IVP Q4 PRN PRN Reason: Nausea/Vomiting Pravastatin Sodium (Pravachol) 40 mg PO HS [facility] Last Admin: 03/24/17 22:14 Dose: 40 mg Pregabalin (Lyrica) 100 mg PO TID [facility] Last Admin: 03/25/17 12:40 Dose: 100 mg Sitagliptin Phosphate (Januvia) 100 mg PO DAILY [facility] Last Admin: 03/25/17 09:19 Dose: 100 mg - Labs Labs: 03/25/17 06:00 03/25/17 06:00 PT 12.7 Seconds (9.8-13.1) 03/25/17 06:00 INR 1.2 (0.9-1.2) 03/25/17 06:00 APTT 34.2 Seconds (25.6-37.1) 03/25/17 06:00 - Constitutional Appears: Non-toxic, No Acute Distress - Head Exam Head Exam: ATRAUMATIC, NORMAL INSPECTION, NORMOCEPHALIC - Eye Exam Eye Exam: EOMI, Normal appearance, PERRL - ENT Exam ENT Exam: Mucous Membranes Moist - Respiratory Exam Respiratory Exam: Decreased Breath Sounds, Clear to Ausculation Bilateral, NORMAL BREATHING PATTERN. absent: Rales, Wheezes, Respiratory Distress - Cardiovascular Exam Cardiovascular Exam: REGULAR RHYTHM, +S1, +S2. absent: Bradycardia, Tachycardia - GI/Abdominal Exam GI & Abdominal Exam: Soft, Normal Bowel Sounds. absent: Distended, Guarding, Tenderness, Hyperactive Bowel Sounds - Rectal Exam Rectal Exam: Deferred - Neurological Exam Neurological Exam: Alert, Awake, CN II-XII Intact, Oriented x3 - Psychiatric Exam Psychiatric exam: Normal Affect, Normal Mood - Skin Additional comments: RLE wrapped, dressing is clean and dry, no malodor noted. wound not visualized Assessment and Plan (1) Gangrene of foot Assessment & Plan: 56 year old morbidly obese female with uncontrolled DM, with gangrene and OM of her foot. Still hyperglycemic, will hold off on insulin dose adjustment since patient will be NPO and is for OR in AM. -Cultures +corynebacterium, continue flagyl and merrem as per ID. -For OR in AM for right BKA possible AKA. -Surgery and podiatry are following. Status: Acute (2) Osteomyelitis of foot Assessment & Plan: as above Status: Acute (3) Type 2 diabetes mellitus with hyperglycemia Assessment & Plan: remains uncontrolled. can start patients home insulin s/p surgery once on PO diet. NPO tonight. Status: Chronic (4) Anemia Assessment & Plan: stable. Status: Acute (5) DVT prophylaxis Assessment & Plan: on heparin Status: Acute
[2017-03-25] MEDS: Saccharomyces Boulardi 250 mg Cap PO SCH (17:54)
[2017-03-25] MEDS: Pravastatin Sodium 40 MG TAB PO SCH (21:26)
[2017-03-26] MEDS: Lactated Ringer's 1,000 ML IV SCH ×2 (00:13→22:57)
[2017-03-26 06:08] LABS: ALB/GLOB RATIO 0.8 (1.0-2.1); ALKALINE PHOSPHATASE 292 U/L (38-126); ALT/SGPT 24 U/L (9-52); AST/SGOT 25 U/L (14-36); BASO % 0.5 % (0.0-2.0); BILIRUBIN,TOTAL 0.3 mg/dl (0.2-1.3); BLOOD UREA NITROGEN 21 mg/dl (7-17); CALCIUM 8.5 mg/dL (8.4-10.2); CARBON DIOXIDE 26 mmol/L (22-30); CHLORIDE 104 mmol/L (98-107); EOS # 0.2 K/uL (0.0-0.7); EOS % 1.8 % (0.0-4.0); GFR AFRICAN-AMERICAN > 60; GLUCOSE,RANDOM 267 mg/dL (65-105); LYMPH # 1.5 K/uL (1.0-4.3); LYMPH % 17.1 % (20.0-40.0); MEAN CELL VOLUME 88.6 fl (81.0-99.0); MEAN CORPUSCULAR HEMOGLOBIN 28.2 pg (27.0-31.0); MEAN CORPUSCULAR HGB CONC 31.8 g/dL (33.0-37.0); MEAN PLATELET VOLUME 8.7 fl (7.2-11.7); MONO # 0.9 K/uL (0.0-0.8); MONO % 10.2 % (0.0-10.0); NEUT # 6.2 K/uL (1.8-7.0); NEUT % 70.4 % (50.0-75.0); POTASSIUM 4.6 MMOL/L (3.6-5.0); RED CELL DISTRIBUTION WIDTH 17.2 % (11.5-14.5); SODIUM 135 mmol/l (132-148); TOTAL PROTEIN 6.8 G/DL (6.3-8.2); WHITE BLOOD COUNT 8.9 K/uL (4.8-10.8)
--- NOTE | 2017-03-26 07:07 | CP.PCM.PN ---
Subjective - Date & Time of Evaluation Date of Evaluation: 03/26/17 Time of Evaluation: 08:40 - Subjective Subjective: Podiatry Progress Note - Dr. Kaur 56 y/o female seen at bedside 2 weeks s/p R foot and leg I&D for gas gangrene. Patient seen resting comfortably in bed, AAOx3 and NAD. Patient denies any acute events overnight. Pt is aware that she is going for surgery at 12:30 or 1: 30 this afternoon. Pt does not have any questions for us at this time. Patient denies of any F/N/V/C/SOB today. No other pedal complaints at this time. Objective - Vital Signs/Intake and Output Vital Signs (last 24 hours): Temp Pulse Resp BP Pulse Ox 98.9 F 72 18 133/65 98 03/25/17 23:54 03/25/17 23:54 03/25/17 23:54 03/25/17 23:54 03/25/17 23:54 - Medications Medications: Current Medications Acetaminophen (Tylenol 325mg Tab) 650 mg PO Q4 PRN PRN Reason: Pain, Mild (1-3) Dextrose (Dextrose 50% Inj) 0 ml IV STAT PRN; Protocol PRN Reason: Hyglycemia Protocol Dextrose (Glutose 15) 0 gm PO ONCE PRN; Protocol PRN Reason: Hypoglycemia Protocol Ferrous Sulfate (Feosol) 325 mg PO BID [facility] Last Admin: 03/25/17 17:54 Dose: 325 mg Glucagon (Glucagen Diagnostic Kit) 0 mg IM STAT PRN; Protocol PRN Reason: Hypoglycemia Protocol Heparin Sodium (Porcine) (Heparin) 5,000 units SC Q8 [facility] PRN Reason: Protocol Hydromorphone HCl (Dilaudid) 1 mg IVP Q4 PRN PRN Reason: Pain (8-10) Last Admin: 03/26/17 03:24 Dose: 1 mg Meropenem 1 gm/ Sodium (Chloride) 100 mls @ 100 mls/hr IVPB Q12 [facility] Last Admin: 03/25/17 20:38 Dose: 100 mls/hr Lactated Ringer's (Lactated Ringer's) 1,000 mls @ 125 mls/hr IV .Q8H [facility] Last Admin: 03/26/17 00:13 Dose: 125 mls/hr Insulin Human Regular (Humulin R) 0 units SC ACHS [facility] PRN Reason: Protocol Last Admin: 03/25/17 21:25 Dose: 9 units Insulin Lispro Protam/Lispro Human (Humalog Mix 75/25) 16 units SC BID [facility] Last Admin: 03/25/17 17:55 Dose: 16 units Lactobacillus Acidophilus (Bacid Acidophilus) 1 cap PO BID [facility] Last Admin: 03/25/17 17:53 Dose: 1 cap Metformin HCl (Glucophage) 1,000 mg PO BIDWM [facility] Last Admin: 03/25/17 17:54 Dose: 1,000 mg Metronidazole (Flagyl) 500 mg PO Q8 [facility] Last Admin: 03/26/17 00:13 Dose: 500 mg Ondansetron HCl (Zofran Inj) 4 mg IVP Q4 PRN PRN Reason: Nausea/Vomiting Pravastatin Sodium (Pravachol) 40 mg PO HS [facility] Last Admin: 03/25/17 21:26 Dose: 40 mg Pregabalin (Lyrica) 100 mg PO TID [facility] Last Admin: 03/25/17 17:57 Dose: 100 mg Saccharomyces Boulardii (Florastor) 250 mg PO BID [facility] Last Admin: 03/25/17 17:54 Dose: 250 mg Sitagliptin Phosphate (Januvia) 100 mg PO DAILY [facility] Last Admin: 03/25/17 09:19 Dose: 100 mg - Labs Labs: 03/26/17 05:00 03/26/17 05:00 PT 12.7 Seconds (9.8-13.1) 03/25/17 06:00 INR 1.2 (0.9-1.2) 03/25/17 06:00 APTT 34.2 Seconds (25.6-37.1) 03/25/17 06:00 - Constitutional Appears: Well, Non-toxic, No Acute Distress - Extremities Exam Additional comments: Dressing to RLE remains clean, dry and intact - Neurological Exam Neurological Exam: Alert, Awake, Oriented x3 - Psychiatric Exam Psychiatric exam: Normal Affect, Normal Mood Assessment and Plan - Assessment and Plan (Free Text) Assessment: 56 year old female seen 2 weeks s/p right foot and leg incision and drainage secondary to gas gangrene Plan: Patient seen and evaluated at bedside Discussed plan in detail with attending Dr. Kaur Charts, labs and vitals reviewed = afebrile, WBC 8.9 Dressing to RLE left clean dry and intact prior to surgery later today with vascular surgery team Continue abx per ID = IV Meropenem, PO Flagyl To OR with Dr. Palomares at 1:30pm today for BKA vs AKA Podiatry will check on patient tomorrow to confirm that she has been seen by PT and assess her ambulatory capability prior to signing off
[2017-03-26] MEDS: Insulin Regular 100 units/ml SC SCH ×5 (07:30→22:54)
[2017-03-26] MEDS: Lactobacillus Acidophilus 500 MU Cap PO SCH ×2 (08:09→20:35)
[2017-03-26] MEDS: Insulin Lispro Mix 75/25 100 units/ml (HumaLog) 10ml SC SCH ×2 (08:10→20:38)
[2017-03-26] MEDS: Saccharomyces Boulardi 250 mg Cap PO SCH ×2 (08:10→20:37)
[2017-03-26] MEDS: Meropenem 1 GM in Sodium Chloride 0.9% 100 ML IVPB SCH ×2 (08:10→20:54)
--- NOTE | 2017-03-26 09:41 | CP.PCM.PN ---
Subjective - Date & Time of Evaluation Date of Evaluation: 03/26/17 Time of Evaluation: 09:39 - Subjective Subjective: Patient is ding a ot better. Accucheck are still elevated Has no fever For surgery today Objective - Vital Signs/Intake and Output Vital Signs (last 24 hours): Temp Pulse Resp BP Pulse Ox 98.7 F 66 19 115/67 96 03/26/17 07:58 03/26/17 07:58 03/26/17 07:58 03/26/17 07:58 03/26/17 07:58 - Medications Medications: Current Medications Acetaminophen (Tylenol 325mg Tab) 650 mg PO Q4 PRN PRN Reason: Pain, Mild (1-3) Dextrose (Dextrose 50% Inj) 0 ml IV STAT PRN; Protocol PRN Reason: Hyglycemia Protocol Dextrose (Glutose 15) 0 gm PO ONCE PRN; Protocol PRN Reason: Hypoglycemia Protocol Ferrous Sulfate (Feosol) 325 mg PO BID [facility] Last Admin: 03/26/17 08:09 Dose: Not Given Glucagon (Glucagen Diagnostic Kit) 0 mg IM STAT PRN; Protocol PRN Reason: Hypoglycemia Protocol Heparin Sodium (Porcine) (Heparin) 5,000 units SC Q8 [facility] PRN Reason: Protocol Hydromorphone HCl (Dilaudid) 1 mg IVP Q4 PRN PRN Reason: Pain (8-10) Last Admin: 03/26/17 08:05 Dose: 1 mg Meropenem 1 gm/ Sodium (Chloride) 100 mls @ 100 mls/hr IVPB Q12 [facility] Last Admin: 03/26/17 08:10 Dose: 100 mls/hr Lactated Ringer's (Lactated Ringer's) 1,000 mls @ 125 mls/hr IV .Q8H [facility] Last Admin: 03/26/17 00:13 Dose: 125 mls/hr Insulin Human Regular (Humulin R) 0 units SC ACHS [facility] PRN Reason: Protocol Last Admin: 03/26/17 07:32 Dose: 9 units Insulin Lispro Protam/Lispro Human (Humalog Mix 75/25) 16 units SC BID [facility] Last Admin: 03/26/17 08:10 Dose: Not Given Lactobacillus Acidophilus (Bacid Acidophilus) 1 cap PO BID [facility] Last Admin: 03/26/17 08:09 Dose: Not Given Metformin HCl (Glucophage) 1,000 mg PO BIDWM [facility] Last Admin: 03/26/17 08:10 Dose: Not Given Metronidazole (Flagyl) 500 mg PO Q8 [facility] Last Admin: 03/26/17 08:10 Dose: Not Given Ondansetron HCl (Zofran Inj) 4 mg IVP Q4 PRN PRN Reason: Nausea/Vomiting Pravastatin Sodium (Pravachol) 40 mg PO HS [facility] Last Admin: 03/25/17 21:26 Dose: 40 mg Pregabalin (Lyrica) 100 mg PO TID [facility] Last Admin: 03/26/17 08:10 Dose: Not Given Saccharomyces Boulardii (Florastor) 250 mg PO BID [facility] Last Admin: 03/26/17 08:10 Dose: Not Given Sitagliptin Phosphate (Januvia) 100 mg PO DAILY [facility] Last Admin: 03/26/17 08:10 Dose: Not Given - Labs Labs: 03/26/17 05:00 03/26/17 05:00 PT 12.7 Seconds (9.8-13.1) 03/25/17 06:00 INR 1.2 (0.9-1.2) 03/25/17 06:00 APTT 34.2 Seconds (25.6-37.1) 03/25/17 06:00 - Head Exam Head Exam: NORMAL INSPECTION - Eye Exam Eye Exam: Normal appearance - ENT Exam ENT Exam: Mucous Membranes Moist - Cardiovascular Exam Cardiovascular Exam: REGULAR RHYTHM - GI/Abdominal Exam GI & Abdominal Exam: Normal Bowel Sounds - Neurological Exam Neurological Exam: CN II-XII Intact, Oriented x3 - Psychiatric Exam Psychiatric exam: Anxious, Depressed Assessment and Plan (1) Gangrene of foot Status: Acute (2) Bleeding Status: Acute (3) Uncontrolled type 2 diabetes mellitus Status: Chronic (4) Osteomyelitis of foot Status: Acute - Assessment and Plan (Free Text) Plan: Cont meds will adjust insulin and start long acting insulin post op cont tx medically stable for surgery
[2017-03-26] MEDS ORDERED: Bupivacaine 0.5% Inj(30mL) ONE (13:59)
[2017-03-26] MEDS ORDERED: Lidocaine 1% Inj (20ml) ONE (13:59)
[2017-03-26] MEDS ORDERED: Succinylcholine 200 mg/10 ml Inj IV ONE (14:03)
[2017-03-26] MEDS ORDERED: Propofol 10 mg/ml Inj (20 ML) ONE (14:03)
[2017-03-26] MEDS ORDERED: Midazolam 2 MG/2 ML VIAL ONE (14:03)
[2017-03-26] MEDS ORDERED: Rocuronium 10 mg/ml (5 ml) ONE (14:06)
[2017-03-26] MEDS ORDERED: Neostigmine Methylsulfate 2 MG/2 ML ML IV ONE (14:07)
[2017-03-26] MEDS ORDERED: Lactated Ringer's 1,000 ML IV ONE ×3 (14:10→16:30)
[2017-03-26] MEDS ORDERED: Lidocaine 4% (Laryng-O-Jet) Kit MM ONE (14:13)
[2017-03-26] MEDS ORDERED: HYDROmorphone 0.5 mg/0.5 ml ISec ONE ×3 (17:29→17:43)
[2017-03-26] MEDS: HYDROmorphone 0.5 mg/0.5 ml ISec IVP PRN ×5 (17:30→19:55)
[2017-03-26] MEDS ORDERED: Lactated Ringer's 1,000 ML IV SCH (17:39)
--- NOTE | 2017-03-26 17:42 | PCM.SURG1 ---
Surgeon's Initial Post Op Note - Surgeon's Notes Surgeon: Dr. Palomares Water Resources Project Manager: Jenny Mckeon, PGY2; Reji Figueroa PGY1 Pre-Operative Diagnosis: Right foot osteomyelitis and gangrene Operative Findings: See full operative report Post-Operative Diagnosis: same Operation Performed: Right BKA Specimen/Specimens Removed: right lower leg Estimated Blood Loss: EBL {In ML}: 300 Date of Surgery/Procedure: 03/26/17 Time of Surgery/Procedure: 14:00 (\)
[2017-03-26 18:37] LABS: BASO # 0.1 K/uL (0.0-0.2); BASO % 0.5 % (0.0-2.0); EOS # 0.1 K/uL (0.0-0.7); EOS % 0.6 % (0.0-4.0); HEMATOCRIT 29.3 % (34.0-47.0); LYMPH # 1.6 K/uL (1.0-4.3); LYMPH % 9.1 % (20.0-40.0); MEAN CELL VOLUME 88.4 fl (81.0-99.0); MEAN CORPUSCULAR HEMOGLOBIN 27.5 pg (27.0-31.0); MEAN CORPUSCULAR HGB CONC 31.1 g/dL (33.0-37.0); MEAN PLATELET VOLUME 9.1 fl (7.2-11.7); MONO # 0.6 K/uL (0.0-0.8); MONO % 3.2 % (0.0-10.0); NEUT # 15.5 K/uL (1.8-7.0); NEUT % 86.6 % (50.0-75.0); PLATELET COUNT 371 K/uL (130-400); RED CELL DISTRIBUTION WIDTH 16.8 % (11.5-14.5); WHITE BLOOD COUNT 17.9 K/uL (4.8-10.8)
[2017-03-26 20:11] LABS: NEUTROPHIL 82 % (42-75); TOTAL CELLS COUNTED 100
[2017-03-26] MEDS: Pravastatin Sodium 40 MG TAB PO SCH (20:59)
--- NOTE | 2017-03-27 07:03 | CP.PCM.PN ---
Subjective - Date & Time of Evaluation Date of Evaluation: 03/27/17 Time of Evaluation: 15:18 - Subjective Subjective: 56 y/o female seen at bedside 1 day s/p right BKA and 2 weeks s/p R foot and leg I&D for gas gangrene. Patient seen resting comfortably in bed, AAOx3 and NAD. Patient denies any acute events overnight. Pt states that her procedure went well and her pain decreased since yesterday and this morning after her doctors adjusted her pain meds. Patient states she was seen by PT today and practiced moving from her bed to recliner and back. Pt states that she is motivated to continue with therapy and improve her ambulation with assistive devices. Patient denies of any F/N/V/C/SOB today. Objective - Vital Signs/Intake and Output Vital Signs (last 24 hours): Temp Pulse Resp BP Pulse Ox 98.3 F 90 16 172/66 H 98 03/27/17 03:01 03/27/17 03:01 03/27/17 03:01 03/27/17 03:01 03/27/17 03:01 Intake and Output: 03/27/17 03/27/17 06:59 18:59 Intake Total 875 Output Total 730 Balance 145 - Medications Medications: Current Medications Acetaminophen (Tylenol 325mg Tab) 650 mg PO Q4 PRN PRN Reason: Pain, Mild (1-3) Dextrose (Dextrose 50% Inj) 0 ml IV STAT PRN; Protocol PRN Reason: Hyglycemia Protocol Dextrose (Glutose 15) 0 gm PO ONCE PRN; Protocol PRN Reason: Hypoglycemia Protocol Ferrous Sulfate (Feosol) 325 mg PO BID [facility] Last Admin: 03/26/17 20:37 Dose: Not Given Glucagon (Glucagen Diagnostic Kit) 0 mg IM STAT PRN; Protocol PRN Reason: Hypoglycemia Protocol Heparin Sodium (Porcine) (Heparin) 5,000 units SC Q8 [facility] PRN Reason: Protocol Hydromorphone HCl (Dilaudid) 1 mg IVP Q3 PRN PRN Reason: Pain (8-10) Last Admin: 03/27/17 04:49 Dose: 1 mg Meropenem 1 gm/ Sodium (Chloride) 100 mls @ 100 mls/hr IVPB Q12 [facility] Last Admin: 03/26/17 20:54 Dose: 100 mls/hr Lactated Ringer's (Lactated Ringer's) 1,000 mls @ 75 mls/hr IV .[id number] [facility] Insulin Human Regular (Humulin R) 0 units SC ACHS [facility] PRN Reason: Protocol Last Admin: 03/26/17 22:54 Dose: 12 units Insulin Lispro Protam/Lispro Human (Humalog Mix 75/25) 16 units SC BID [facility] Last Admin: 03/26/17 20:38 Dose: Not Given Lactobacillus Acidophilus (Bacid Acidophilus) 1 cap PO BID [facility] Last Admin: 03/26/17 20:35 Dose: Not Given Metformin HCl (Glucophage) 1,000 mg PO BIDWM [facility] Last Admin: 03/26/17 20:38 Dose: Not Given Metronidazole (Flagyl) 500 mg PO Q8 [facility] Last Admin: 03/27/17 01:44 Dose: 500 mg Morphine Sulfate (Morphine) 2 mg IVP Q4 PRN PRN Reason: Pain, moderate (4-7) Nystatin/Triamcinolone Acetonide (Mycolog Ii Oint) 1 applic TOP TID [facility] Ondansetron HCl (Zofran Inj) 4 mg IVP Q4 PRN PRN Reason: Nausea/Vomiting Pravastatin Sodium (Pravachol) 40 mg PO HS [facility] Last Admin: 03/26/17 20:59 Dose: 40 mg Pregabalin (Lyrica) 100 mg PO TID [facility] Last Admin: 03/26/17 20:39 Dose: Not Given Saccharomyces Boulardii (Florastor) 250 mg PO BID [facility] Last Admin: 03/26/17 20:37 Dose: Not Given Sitagliptin Phosphate (Januvia) 100 mg PO DAILY [facility] Last Admin: 03/26/17 08:10 Dose: Not Given - Labs Labs: 03/26/17 18:10 03/26/17 05:00 PT 12.7 Seconds (9.8-13.1) 03/25/17 06:00 INR 1.2 (0.9-1.2) 03/25/17 06:00 APTT 34.2 Seconds (25.6-37.1) 03/25/17 06:00 - Constitutional Appears: Well, Non-toxic, No Acute Distress - Extremities Exam Additional comments: Dressing to R BKA surgical site clean, dry and intact - Neurological Exam Neurological Exam: Alert, Awake, Oriented x3 - Psychiatric Exam Psychiatric exam: Normal Affect, Normal Mood Assessment and Plan - Assessment and Plan (Free Text) Assessment: 56 year old female seen 1 day s/p R BKA and 2 weeks s/p right foot and leg incision and drainage secondary to gas gangrene Plan: Pt seen and evaluated at bedside Discussed with attending Dr. Kaur Encouraged patient to remain in high spirits and continue to actively participate in physical therapy Podiatry to sign off at this time
[2017-03-27 07:09] LABS: HEMATOCRIT 27.2 % (34.0-47.0); MEAN CELL VOLUME 87.3 fl (81.0-99.0); MEAN CORPUSCULAR HEMOGLOBIN 27.9 pg (27.0-31.0); MEAN CORPUSCULAR HGB CONC 31.9 g/dL (33.0-37.0); WHITE BLOOD COUNT 12.3 K/uL (4.8-10.8)
[2017-03-27 07:12] LABS: BLOOD UREA NITROGEN 16 mg/dl (7-17); CALCIUM 8.4 mg/dL (8.4-10.2); CARBON DIOXIDE 24 mmol/L (22-30); CHLORIDE 101 mmol/L (98-107); GFR AFRICAN-AMERICAN > 60; GLUCOSE,RANDOM 294 mg/dL (65-105); POTASSIUM 4.4 MMOL/L (3.6-5.0); SODIUM 131 mmol/l (132-148)
[2017-03-27] MEDS ORDERED: Oxycodone/Acetaminophen 5/325 mg Tab PO PRN (07:51)
[2017-03-27] MEDS: Insulin Regular 100 units/ml SC SCH ×3 (07:55→16:27)
--- NOTE | 2017-03-27 07:59 | CP.PCM.PN ---
<Jenny Mckeon - Last Filed: 03/27/17 08:30> Subjective - Date & Time of Evaluation Date of Evaluation: 03/27/17 Time of Evaluation: 06:45 - Subjective Subjective: General Surgery progress note for Dr. Palomares Patient seen and examined this AM. NAEO. Patient reports pain at surgical site not sufficiently managed on current regimen. Denies any fevers, chills, or any other symptoms. Objective - Vital Signs/Intake and Output Vital Signs (last 24 hours): Temp Pulse Resp BP Pulse Ox 98.4 F 82 17 172/55 H 98 03/27/17 07:05 03/27/17 07:05 03/27/17 07:05 03/27/17 07:05 03/27/17 07:05 Intake and Output: 03/27/17 03/27/17 06:59 18:59 Intake Total 875 Output Total 730 Balance 145 - Medications Medications: Current Medications Acetaminophen (Tylenol 325mg Tab) 650 mg PO Q4 PRN PRN Reason: Pain, Mild (1-3) Dextrose (Dextrose 50% Inj) 0 ml IV STAT PRN; Protocol PRN Reason: Hyglycemia Protocol Dextrose (Glutose 15) 0 gm PO ONCE PRN; Protocol PRN Reason: Hypoglycemia Protocol Ferrous Sulfate (Feosol) 325 mg PO BID [facility] Last Admin: 03/26/17 20:37 Dose: Not Given Glucagon (Glucagen Diagnostic Kit) 0 mg IM STAT PRN; Protocol PRN Reason: Hypoglycemia Protocol Heparin Sodium (Porcine) (Heparin) 5,000 units SC Q12 [facility] PRN Reason: Protocol Hydromorphone HCl (Dilaudid) 1 mg IVP Q3 PRN PRN Reason: Pain (8-10) Last Admin: 03/27/17 07:52 Dose: 1 mg Meropenem 1 gm/ Sodium (Chloride) 100 mls @ 100 mls/hr IVPB Q12 [facility] Last Admin: 03/26/17 20:54 Dose: 100 mls/hr Insulin Human Regular (Humulin R) 0 units SC ACHS [facility] PRN Reason: Protocol Last Admin: 03/27/17 07:55 Dose: 6 units Insulin Lispro Protam/Lispro Human (Humalog Mix 75/25) 16 units SC BID [facility] Last Admin: 03/26/17 20:38 Dose: Not Given Ketorolac Tromethamine (Toradol) 30 mg IVP Q6 [facility] Lactobacillus Acidophilus (Bacid Acidophilus) 1 cap PO BID [facility] Last Admin: 03/26/17 20:35 Dose: Not Given Metformin HCl (Glucophage) 1,000 mg PO BIDWM [facility] Last Admin: 03/26/17 20:38 Dose: Not Given Metronidazole (Flagyl) 500 mg PO Q8 [facility] Last Admin: 03/27/17 01:44 Dose: 500 mg Nystatin/Triamcinolone Acetonide (Mycolog Ii Oint) 1 applic TOP TID [facility] Ondansetron HCl (Zofran Inj) 4 mg IVP Q4 PRN PRN Reason: Nausea/Vomiting Oxycodone/Acetaminophen (Percocet 5/325 Mg Tab) 2 tab PO Q4 PRN PRN Reason: Pain, moderate (4-7) Stop: 03/30/17 07:52 Pravastatin Sodium (Pravachol) 40 mg PO HS [facility] Last Admin: 03/26/17 20:59 Dose: 40 mg Pregabalin (Lyrica) 100 mg PO TID [facility] Last Admin: 03/26/17 20:39 Dose: Not Given Saccharomyces Boulardii (Florastor) 250 mg PO BID [facility] Last Admin: 03/26/17 20:37 Dose: Not Given Sitagliptin Phosphate (Januvia) 100 mg PO DAILY [facility] Last Admin: 03/26/17 08:10 Dose: Not Given - Labs Labs: 03/27/17 06:30 03/27/17 06:30 PT 12.7 Seconds (9.8-13.1) 03/25/17 06:00 INR 1.2 (0.9-1.2) 03/25/17 06:00 APTT 34.2 Seconds (25.6-37.1) 03/25/17 06:00 - Constitutional Appears: Non-toxic, In Acute Distress - Head Exam Head Exam: ATRAUMATIC, NORMOCEPHALIC - Eye Exam Eye Exam: Normal appearance. absent: Conjunctival injection, Scleral icterus - ENT Exam ENT Exam: Mucous Membranes Moist, Normal Oropharynx - Respiratory Exam Respiratory Exam: NORMAL BREATHING PATTERN. absent: Accessory Muscle Use, Respiratory Distress - Cardiovascular Exam Cardiovascular Exam: RRR. absent: Tachycardia - GI/Abdominal Exam GI & Abdominal Exam: Soft. absent: Distended, Tenderness - Extremities Exam Additional comments: leftleg non-tender, no edema, no calf tenderness, palpable DP pulse right leg: BKA surgical site covered in SHLOMO bandage C/D/I, femoral pulse palpable, skin warm and dry - Neurological Exam Neurological Exam: Alert, Awake, Oriented x3 - Psychiatric Exam Psychiatric exam: Anxious, Normal Affect - Skin Skin Exam: Dry, Normal Color, Warm Assessment and Plan - Assessment and Plan (Free Text) Assessment: 56F with POD#1 s/p BKA of the right leg for foot gangrene and osteomyelitis Afebrile, normocardic, hypertensive WBC improving Hgb 8.7 down from 9.2 yesterday Plan: -F/U CBC tomorrow AM -appropriate pain management -GI/DVT ppx -nausea medication PRN -D/C flowers -add dietary supplement -D/C fluids -PT Discussed with Dr. Jelani Mckeon, PGY2 <Gilbert Palomares - Last Filed: 03/29/17 14:18> Subjective - Date & Time of Evaluation Time of Evaluation: 13:00 - Subjective Subjective: Patient was seen and examined and i agree with notes Objective - Vital Signs/Intake and Output Vital Signs (last 24 hours): Temp Pulse Resp BP Pulse Ox 98.5 F 80 20 131/64 98 03/27/17 15:40 03/27/17 15:40 03/27/17 15:40 03/27/17 15:40 03/27/17 15:40 - Labs Labs: 03/27/17 06:30 03/27/17 06:30 PT 12.7 Seconds (9.8-13.1) 03/25/17 06:00 INR 1.2 (0.9-1.2) 03/25/17 06:00 APTT 34.2 Seconds (25.6-37.1) 03/25/17 06:00 Assessment and Plan - Assessment and Plan (Free Text) Plan: Agree with the plan
[2017-03-27] MEDS: Saccharomyces Boulardi 250 mg Cap PO SCH ×2 (08:45→16:05)
[2017-03-27] MEDS: Meropenem 1 GM in Sodium Chloride 0.9% 100 ML IVPB SCH (08:48)
[2017-03-27] MEDS: Mycolog II OINT TOP SCH ×3 (08:50→16:05)
[2017-03-27] MEDS: Lactobacillus Acidophilus 500 MU Cap PO SCH ×2 (09:14→16:14)
--- NOTE | 2017-03-27 11:07 | OP ---
PROCEDURE DATE: 03/26/2017 PREOPERATIVE DIAGNOSES: Gangrene of the right foot and osteomyelitis of the right foot. POSTOPERATIVE DIAGNOSES: Gangrene of the right foot and osteomyelitis of the right foot. PROCEDURE: Right below-knee amputation. SURGEON: Gilbert Palomares MD TYPE OF ANESTHESIA: General. ANESTHESIA ADMINISTERED BY: Chilo Lanier MD INDICATIONS: Mrs. Cora Grove is a 56-year-old female patient with multiple medical problems, peripheral vascular disease, and diabetes, who developed infection in her right foot. The patient was not compliant with treatments and the infection progressed to ankle and has also almost destroyed her foot completely. The patient underwent angiogram for evaluation of her circulation, which showed that she has a patent vessel down to the ankle. I saw the patient after discussed with Dr. Kaur, Podiatry. There is severe destruction of the joint and infection of the foot extending to the lower part of the leg. The foot is non-salvageable. I had a long discussion with Podiatry and the patient for the level of the amputation. The patient underwent I and D for her right foot and the incision was extended to the right leg medially and laterally. There was concern that to do the below-knee amputation, we have to do a flap and to involve the flap, the incision had to go to the medial and lateral side of the leg and involving the flap from the distal part of the leg where the incision for the drainage of the infection was. After a long discussion, we agreed that we would proceed with below knee. We indicated that if the patient developed infection or if the patient was really bad, we will proceed with above-knee amputation at the same time or different time. Risks and benefits were explained to the patient and the family and they agreed to proceed. DESCRIPTION OF PROCEDURE: The patient came to the operating room. She was lying in supine position. She was prepped and draped in usual sterile fashion. Anesthesia was given for her. I started my incision on the anterior surface of the right leg, both hand pressed below the knee joint. The incision was carried down through subcutaneous tissue down to the muscle and cut along the line of the incision. The incision was extended in the medial to lateral aspect along the fibula and the medial aspect of the tibia down to above the ankle area. The two incisions were connected posteriorly with use of cautery, continued cutting the muscle, and the bleeding vessels were cut and clamped and ligated. We continued to cut the muscles around the tibia and fibula. We used periosteal elevator to clean the attachment of the tibia and fibula and using a power saw, we cut the bone above the level of the skin and after that, we cut the fibula above the level of the tibia. We continued cutting the muscle and ligating the bleeding vessels until we completely it. The leg was sent for post mortem and hemostasis secured in the area via ligating multiple small vessels and the main arteries and veins and for the part of the muscle and fascia, cautery was used for hemostasis. We irrigated the stump with bacitracin solution and hemostasis was secured in the area. We irrigated again with bacitracin formed a flap. It was a little bit bulky in certain area, we removed piece of the muscle and smooth and even and we used 2-0 Vicryl to close the fascia. Once the incision was closed, we adjusted the skin by removing some of the skin tags and we closed the skin using jess. The patient tolerated the procedure well. There were no complications. She was transported to the recovery room and back to the floor. No complications during the procedure. Gilbert Palomares MD [facility]
--- NOTE | 2017-03-27 11:34 | CP.PCM.PN ---
Subjective - Date & Time of Evaluation Date of Evaluation: 03/27/17 Time of Evaluation: 11:30 - Subjective Subjective: POD # 1 s/p BKA of right leg Patient doing well. Mild pain. RLE extremity wrapped in SHLOMO bandage, clean and dry. No malodor or drainage noted. No other complaints offered. Her Hg is 8.7, will monitor. Diabetes remains uncontrolled, will start Levemir 30 units tonight. Objective - Vital Signs/Intake and Output Vital Signs (last 24 hours): Temp Pulse Resp BP Pulse Ox 98.4 F 85 20 168/67 H 95 03/27/17 09:00 03/27/17 09:00 03/27/17 09:00 03/27/17 09:00 03/27/17 09:00 Intake and Output: 03/27/17 03/27/17 06:59 18:59 Intake Total 875 Output Total 730 Balance 145 - Medications Medications: Current Medications Acetaminophen (Tylenol 325mg Tab) 650 mg PO Q4 PRN PRN Reason: Pain, Mild (1-3) Ferrous Sulfate (Feosol) 325 mg PO BID [facility] Last Admin: 03/27/17 08:46 Dose: 325 mg Heparin Sodium (Porcine) (Heparin) 5,000 units SC Q12 [facility] PRN Reason: Protocol Last Admin: 03/27/17 09:58 Dose: 5,000 units Hydromorphone HCl (Dilaudid) 1 mg IVP Q3 PRN PRN Reason: Pain (8-10) Last Admin: 03/27/17 07:52 Dose: 1 mg Meropenem 1 gm/ Sodium (Chloride) 100 mls @ 100 mls/hr IVPB Q12 [facility] Last Admin: 03/27/17 08:48 Dose: 100 mls/hr Insulin Human Regular (Humulin R) 0 units SC ACHS [facility] PRN Reason: Protocol Last Admin: 03/27/17 07:55 Dose: 6 units Insulin Lispro Protam/Lispro Human (Humalog Mix 75/25) 16 units SC BID [facility] Last Admin: 03/26/17 20:38 Dose: Not Given Ketorolac Tromethamine (Toradol) 30 mg IVP Q6 [facility] Last Admin: 03/27/17 09:56 Dose: 30 mg Lactobacillus Acidophilus (Bacid Acidophilus) 1 cap PO BID [facility] Last Admin: 03/27/17 09:14 Dose: 1 cap Metformin HCl (Glucophage) 1,000 mg PO BIDWM [facility] Last Admin: 03/27/17 09:14 Dose: 1,000 mg Metronidazole (Flagyl) 500 mg PO Q8 [facility] Last Admin: 03/27/17 08:46 Dose: 500 mg Nystatin/Triamcinolone Acetonide (Mycolog Ii Oint) 1 applic TOP TID [facility] Last Admin: 03/27/17 08:50 Dose: 1 applic Ondansetron HCl (Zofran Inj) 4 mg IVP Q4 PRN PRN Reason: Nausea/Vomiting Oxycodone/Acetaminophen (Percocet 5/325 Mg Tab) 2 tab PO Q4 PRN PRN Reason: Pain, moderate (4-7) Stop: 03/30/17 07:52 Pravastatin Sodium (Pravachol) 40 mg PO HS [facility] Last Admin: 03/26/17 20:59 Dose: 40 mg Pregabalin (Lyrica) 100 mg PO TID [facility] Last Admin: 03/27/17 09:14 Dose: 100 mg Saccharomyces Boulardii (Florastor) 250 mg PO BID [facility] Last Admin: 03/27/17 08:45 Dose: 250 mg Sitagliptin Phosphate (Januvia) 100 mg PO DAILY [facility] Last Admin: 03/27/17 08:46 Dose: 100 mg - Labs Labs: 03/27/17 06:30 03/27/17 06:30 PT 12.7 Seconds (9.8-13.1) 03/25/17 06:00 INR 1.2 (0.9-1.2) 03/25/17 06:00 APTT 34.2 Seconds (25.6-37.1) 03/25/17 06:00 - Constitutional Appears: Non-toxic, No Acute Distress - Head Exam Head Exam: ATRAUMATIC, NORMAL INSPECTION, NORMOCEPHALIC - ENT Exam ENT Exam: Mucous Membranes Moist, Normal Exam - Neck Exam Neck Exam: Full ROM, Normal Inspection. absent: Lymphadenopathy - Respiratory Exam Respiratory Exam: Clear to Ausculation Bilateral, NORMAL BREATHING PATTERN - Cardiovascular Exam Cardiovascular Exam: REGULAR RHYTHM, +S1, +S2. absent: Murmur - GI/Abdominal Exam GI & Abdominal Exam: Soft, Normal Bowel Sounds. absent: Distended, Guarding, Tenderness - Extremities Exam Additional comments: RLE wrapped in bandage : s/p BKA - Neurological Exam Neurological Exam: Alert, Awake, CN II-XII Intact - Psychiatric Exam Psychiatric exam: Normal Affect, Normal Mood Assessment and Plan (1) S/P BKA (below knee amputation) unilateral Assessment & Plan: POD# 1 : s/p right bka 56 year old morbidly obese female with uncontrolled DM, admitted with gangrene and OM of her foot. -Patient doing well postoperatively. -Cultures +corynebacterium, abx as per ID -Surgery and podiatry are following. Status: Acute (2) Type 2 diabetes mellitus with hyperglycemia Assessment & Plan: remains uncontrolled start levemir 30 units tonight c/w sliding scale today start regular insulin tomorrow states home dose: levemir 40 qhs, novolog 40 with meals Status: Chronic (3) Anemia Assessment & Plan: hg stable, monitor for tachycardia, dyspnea, dizziness Status: Acute (4) DVT prophylaxis Assessment & Plan: heparin Status: Acute (5) Gangrene of foot Assessment & Plan: s/p bka Status: Resolved (6) Osteomyelitis of foot Assessment & Plan: s/p bka Status: Resolved
--- NOTE | 2017-03-27 15:24 | CP.PCM.PCO ---
Assessment/Plan - Assessment/Plan Assessment (Free Text): Pt stable, doing better on current pain meds. Pt seen and cleared for transfer to acute rehab by Dr. Willoughby. He will follow patient there. Surgery team will see pt in acute rehab as well. - Problems Patient Problems: Problem List (Active/Current) Problem Status Onset Code Anemia Acute D64.9 Bleeding Acute R58 S/P BKA (below knee amputation) unilateral Acute Z89.519 Sepsis Acute A41.9 Wound infection Acute T14.8, L08.9 Type 2 diabetes mellitus with hyperglycemia Chronic E11.65 Gangrene of foot Resolved I96 Osteomyelitis of foot Resolved M86.9
[2017-03-27] MEDS: Insulin Lispro Mix 75/25 100 units/ml (HumaLog) 10ml SC SCH (16:15)
[2017-03-27 16:56] VITALS: BP 131/64; PULSE 80; RESP 20; TEMP 98.5; O2SAT 98
--- NOTE | 2017-03-27 17:49 | CP.PCM.PN ---
Subjective - Date & Time of Evaluation Date of Evaluation: 03/27/17 Time of Evaluation: 17:45 - Subjective Subjective: I D NOTE FIRST POST/OP DAY (BKA) WOULD CONTINUE IV ANTIBIOTICS FOR AT LEAST 4 DAYS,WILL RE EVALUATE AT THAT TIME Objective - Vital Signs/Intake and Output Vital Signs (last 24 hours): Temp Pulse Resp BP Pulse Ox 98.5 F 80 20 131/64 98 03/27/17 15:40 03/27/17 15:40 03/27/17 15:40 03/27/17 15:40 03/27/17 15:40 Intake and Output: 03/27/17 03/27/17 06:59 18:59 Intake Total 875 Output Total 730 Balance 145 - Labs Labs: 03/27/17 06:30 03/27/17 06:30 PT 12.7 Seconds (9.8-13.1) 03/25/17 06:00 INR 1.2 (0.9-1.2) 03/25/17 06:00 APTT 34.2 Seconds (25.6-37.1) 03/25/17 06:00
== END 2017-03-27 17:28 | DRG 239 ==
LOC: H.ER 14:15 → H.ERHOLD 15:33 → H.MEDSURG1 18:04
PROVIDERS: ADMIT Family Medicine; ATTEND Family Medicine
PROC: 0JBQ0ZZ Excision of Right Foot Subcutaneous Tissue and Fascia, Open Approach (ICD-10-PCS; 2017-03-12)
PROC: 0J9Q0ZX Drainage of Right Foot Subcutaneous Tissue and Fascia, Open Approach, Diagnostic (ICD-10-PCS; 2017-03-12)
PROC: 30233N1 Transfusion of Nonautologous Red Blood Cells into Peripheral Vein, Percutaneous Approach (ICD-10-PCS; 2017-03-13)
PROC: B40GYZZ Plain Radiography of Left Lower Extremity Arteries using Other Contrast (ICD-10-PCS; 2017-03-17)
PROC: B40FYZZ Plain Radiography of Right Lower Extremity Arteries using Other Contrast (ICD-10-PCS; 2017-03-17)
PROC: B400YZZ Plain Radiography of Abdominal Aorta using Other Contrast (ICD-10-PCS; 2017-03-17)
PROC: 0Y6H0Z1 Detachment at Right Lower Leg, High, Open Approach (ICD-10-PCS; principal; 2017-03-26 13:30)
DX: E11.52 Type 2 diabetes mellitus with diabetic peripheral angiopathy with gangrene (principal); A48.0 Gas gangrene; M86.171 Other acute osteomyelitis, right ankle and foot; E11.621 Type 2 diabetes mellitus with foot ulcer; D50.9 Iron deficiency anemia, unspecified; L97.519 Non-pressure chronic ulcer of other part of right foot with unspecified severity; E11.649 Type 2 diabetes mellitus with hypoglycemia without coma; E11.65 Type 2 diabetes mellitus with hyperglycemia; E11.69 Type 2 diabetes mellitus with other specified complication; E87.6 Hypokalemia; D63.8 Anemia in other chronic diseases classified elsewhere; E66.01 Morbid (severe) obesity due to excess calories; Z68.36 Body mass index [BMI] 36.0-36.9, adult; G89.29 Other chronic pain; E78.5 Hyperlipidemia, unspecified; I10 Essential (primary) hypertension; K21.9 Gastro-esophageal reflux disease without esophagitis; J45.909 Unspecified asthma, uncomplicated; Z91.19 Patient's noncompliance with other medical treatment and regimen; F17.210 Nicotine dependence, cigarettes, uncomplicated; F41.9 Anxiety disorder, unspecified; F32.9 Major depressive disorder, single episode, unspecified; Z79.4 Long term (current) use of insulin; Z79.02 Long term (current) use of antithrombotics/antiplatelets; Z79.82 Long term (current) use of aspirin; Z88.1 Allergy status to other antibiotic agents

== ENCOUNTER 2017-03-27 16:07 | Inpatient (IN) | payer MEDICARE, OTHER ==
[2017-03-27 17:16] VITALS: BMI 38.7
[2017-03-27] MEDS ORDERED: Oxycodone/Acetaminophen 5/325 mg Tab PO PRN (20:26)
[2017-03-27] MEDS ORDERED: Patient's Own Med (Meropenem Iv 1 Gm In Ns [Merrem Iv 1 Gm Premix] 1 GM) IVPB SCH (21:00)
[2017-03-27] MEDS: Pravastatin Sodium 40 MG TAB PO SCH (22:31)
[2017-03-27] MEDS: Insulin Regular 100 units/ml SC SCH (22:32)
[2017-03-27] MEDS: Meropenem 1 GM in Sodium Chloride 0.9% 100 ML IVPB SCH (22:40)
[2017-03-27] MEDS: Oxycodone/Acetaminophen 5/325 mg Tab PO PRN (23:52)
--- NOTE | 2017-03-28 02:06 | CP.PCM.PN ---
Subjective - Date & Time of Evaluation Date of Evaluation: 03/28/17 Time of Evaluation: 05:50 - Subjective Subjective: Patient s/e at bedside in the TCU. Patient reports phantom pain that is not well controlled on current regimen, denies fevers or chills Objective - Vital Signs/Intake and Output Vital Signs (last 24 hours): Temp Pulse Resp BP Pulse Ox 20 98 03/27/17 18:38 03/27/17 18:38 - Medications Medications: Current Medications Acetaminophen (Tylenol 325mg Tab) 650 mg PO Q4 PRN PRN Reason: Pain, Mild (1-3) Ferrous Sulfate (Feosol) 325 mg PO BID [facility] Heparin Sodium (Porcine) (Heparin) 5,000 units SC Q12 [facility] PRN Reason: Protocol Last Admin: 03/27/17 22:31 Dose: 5,000 units Meropenem 1 gm/ Sodium (Chloride) 100 mls @ 100 mls/hr IVPB Q12H [facility] Last Admin: 03/27/17 22:40 Dose: 100 mls/hr Insulin Human Regular (Humulin R) 0 units SC ACHS [facility] Last Admin: 03/27/17 22:32 Dose: 6 units Insulin Lispro Protam/Lispro Human (Humalog Mix 75/25) 16 units SC BID [facility] Lactobacillus Acidophilus (Bacid Acidophilus) 1 cap PO BID [facility] Metformin HCl (Glucophage) 1,000 mg PO BID [facility] Metronidazole (Flagyl) 500 mg PO Q8 [facility] Last Admin: 03/27/17 22:31 Dose: 500 mg Nystatin/Triamcinolone Acetonide (Mycolog Ii Oint) 1 applic TOP TID [facility] Ondansetron HCl (Zofran Tab) 4 mg PO Q4 PRN PRN Reason: Nausea/Vomiting Oxycodone/Acetaminophen (Percocet 5/325 Mg Tab) 1 tab PO Q4 PRN PRN Reason: Pain, moderate (4-7) Stop: 03/30/17 20:27 Oxycodone/Acetaminophen (Percocet 5/325 Mg Tab) 2 tab PO Q4 PRN PRN Reason: Pain, severe (8-10) Stop: 03/30/17 21:12 Last Admin: 03/27/17 23:52 Dose: 2 tab Pantoprazole Sodium (Protonix Ec Tab) 40 mg PO DAILY [facility] Pravastatin Sodium (Pravachol) 40 mg PO HS [facility] Last Admin: 03/27/17 22:31 Dose: 40 mg Pregabalin (Lyrica) 100 mg PO TID [facility] Saccharomyces Boulardii (Florastor) 250 mg PO BID [facility] Sitagliptin Phosphate (Januvia) 100 mg PO DAILY [facility] - Constitutional Appears: Non-toxic, No Acute Distress - Head Exam Head Exam: ATRAUMATIC, NORMOCEPHALIC - Eye Exam Eye Exam: Normal appearance. absent: Conjunctival injection, Scleral icterus - ENT Exam ENT Exam: Mucous Membranes Moist, Normal Oropharynx - Respiratory Exam Respiratory Exam: NORMAL BREATHING PATTERN. absent: Accessory Muscle Use, Respiratory Distress - Cardiovascular Exam Cardiovascular Exam: RRR - GI/Abdominal Exam GI & Abdominal Exam: Soft. absent: Distended, Tenderness - Extremities Exam Additional comments: Left leg without edema, no calf tenderness, normal inspection right leg BKA with heather bandage c/d/i. Incisions well approximated with jess, no erythema, swelling, or drainage - Neurological Exam Neurological Exam: Alert, Awake, Oriented x3 - Psychiatric Exam Psychiatric exam: Normal Affect, Normal Mood Assessment and Plan - Assessment and Plan (Free Text) Assessment: 56F with POD#2 s/p BKA of the right leg for foot gangrene and osteomyelitis Afebrile, normocardic, hypertensive WBC improving CBC 7.9 down from 8.7 Plan: -Continue to monitor hgb--currently afebrile -appropriate pain management -GI/DVT ppx -nausea medication PRN -PT -Daily dressing changes Discussed with Dr. Jelani Mckeon, PGY2
[2017-03-28] MEDS: Oxycodone/Acetaminophen 5/325 mg Tab PO PRN ×2 (04:20→09:03)
[2017-03-28] MEDS: Insulin Regular 100 units/ml SC SCH ×4 (07:21→21:19)
[2017-03-28 07:37] LABS: BASO # 0.1 K/uL (0.0-0.2); BASO % 0.9 % (0.0-2.0); EOS # 0.1 K/uL (0.0-0.7); EOS % 1.5 % (0.0-4.0); LYMPH # 1.6 K/uL (1.0-4.3); LYMPH % 17.8 % (20.0-40.0); MEAN CELL VOLUME 87.6 fl (81.0-99.0); MEAN CORPUSCULAR HEMOGLOBIN 27.9 pg (27.0-31.0); MEAN CORPUSCULAR HGB CONC 31.8 g/dL (33.0-37.0); MEAN PLATELET VOLUME 8.6 fl (7.2-11.7); MONO # 0.8 K/uL (0.0-0.8); NEUT # 6.2 K/uL (1.8-7.0); NEUT % 70.8 % (50.0-75.0); RED CELL DISTRIBUTION WIDTH 17.1 % (11.5-14.5); WHITE BLOOD COUNT 8.8 K/uL (4.8-10.8)
[2017-03-28] MEDS: Lactobacillus Acidophilus 500 MU Cap PO SCH ×2 (09:03→16:57)
[2017-03-28] MEDS: Pantoprazole 40 mg EC Tab PO SCH (09:06)
[2017-03-28] MEDS: Saccharomyces Boulardi 250 mg Cap PO SCH ×2 (09:06→17:01)
[2017-03-28] MEDS: Insulin Lispro Mix 75/25 100 units/ml (HumaLog) 10ml SC SCH ×2 (09:08→17:02)
[2017-03-28] MEDS: Meropenem 1 GM in Sodium Chloride 0.9% 100 ML IVPB SCH ×2 (09:09→20:42)
[2017-03-28] MEDS: Mycolog II OINT TOP SCH ×3 (10:06→16:59)
--- NOTE | 2017-03-28 10:26 | CP.PCM.HP ---
History of Present Illness - History of Present Illness History of Present Illness: This is a 56 y/o female with hx of uncontrolled DM 2 and nonhealing right leg cellulitis/ abscess finally had a BKA the other day. Postop period was unremarkable. She is admitted for rehab and phys therapy. Past Patient History - Infectious Disease Hx of Infectious Diseases: None - Past Medical History & Family History Past Medical History?: Yes - Past Social History Smoking Status: Heavy Smoker > 10 Cigarettes Daily - CARDIAC Hx Congestive Heart Failure: Yes Hx Hypercholesterolemia: Yes Hx Hypertension: Yes - PULMONARY Hx Asthma: Yes - NEUROLOGICAL Hx Neurological Disorder: No - HEENT Other/Comment: uses eyeglasses - RENAL Hx Chronic Kidney Disease: No - ENDOCRINE/METABOLIC Hx Diabetes Mellitus Type 2: Yes - HEMATOLOGICAL/ONCOLOGICAL Hx AIDS: No Hx Human Immunodeficiency Virus (HIV): No - INTEGUMENTARY Hx Dermatological Problems: Yes - MUSCULOSKELETAL/RHEUMATOLOGICAL Hx Musculoskeletal Disorders: Yes Hx Falls: No - GASTROINTESTINAL Hx Gastrointestinal Disorders: No - GENITOURINARY/GYNECOLOGICAL Hx Genitourinary Disorders: No - PSYCHIATRIC Hx Anxiety: Yes Hx Depression: Yes Hx Substance Use: No - SURGICAL HISTORY Hx Surgeries: Yes Hx Appendectomy: Yes Hx Carotid Endarterectomy: Yes Hx Cholecystectomy: Yes Other/Comment: I@D rt. foot - ANESTHESIA Hx Anesthesia: Yes Hx Anesthesia Reactions: No Hx Malignant Hyperthermia: No Meds Allergies/Adverse Reactions: Allergies Allergy/AdvReac Type Severity Reaction Status Date / Time vancomycin AdvReac ITCHING Verified 05/22/16 13:09 Results - Vital Signs Recent Vital Signs: Last Vital Signs Temp 98.1 F 03/28/17 08:40 Pulse 86 03/28/17 08:40 Resp 20 03/28/17 08:40 BP 144/60 03/28/17 08:40 Pulse Ox 97 03/28/17 08:40 - Labs Result Diagrams: 03/28/17 07:10 Labs: Laboratory Results - last 24 hr 03/27/17 03/28/17 03/28/17 21:23 06:07 07:10 WBC 8.8 RBC 2.85 L Hgb 7.9 L Hct 25.0 L MCV 87.6 MCH 27.9 MCHC 31.8 L RDW 17.1 H Plt Count 271 MPV 8.6 Neut % (Auto) 70.8 Lymph % (Auto) 17.8 L [place] % (Auto) 9.0 Eos % (Auto) 1.5 Baso % (Auto) 0.9 Neut # 6.2 Lymph # 1.6 [place] # 0.8 Eos # 0.1 Baso # 0.1 POC Glucose (mg/dL) 234 H 247 H
--- NOTE | 2017-03-28 11:55 | CP.PCM.PN ---
Subjective - Date & Time of Evaluation Date of Evaluation: 03/28/17 Time of Evaluation: 11:54 - Subjective Subjective: right BKA Objective - Vital Signs/Intake and Output Vital Signs (last 24 hours): Temp Pulse Resp BP Pulse Ox 98.1 F 86 20 144/60 97 03/28/17 08:40 03/28/17 08:40 03/28/17 08:40 03/28/17 08:40 03/28/17 08:40 - Medications Medications: Current Medications Acetaminophen (Tylenol 325mg Tab) 650 mg PO Q4 PRN PRN Reason: Pain, Mild (1-3) Docusate Sodium (Colace) 100 mg PO TID [facility] Ferrous Sulfate (Feosol) 325 mg PO TID [facility] Heparin Sodium (Porcine) (Heparin) 5,000 units SC Q12 [facility] PRN Reason: Protocol Last Admin: 03/28/17 09:07 Dose: 5,000 units Hydromorphone HCl (Dilaudid) 2 mg PO Q4 PRN PRN Reason: pain 4-8/10 Hydromorphone HCl (Dilaudid) 4 mg PO Q4 PRN PRN Reason: pain 9-10/10 Meropenem 1 gm/ Sodium (Chloride) 100 mls @ 100 mls/hr IVPB Q12H [facility] Last Admin: 03/28/17 09:09 Dose: 100 mls/hr Insulin Human Regular (Humulin R) 0 units SC ACHS [facility] Last Admin: 03/28/17 07:21 Dose: 6 units Insulin Lispro Protam/Lispro Human (Humalog Mix 75/25) 16 units SC BID [facility] Last Admin: 03/28/17 09:08 Dose: 16 units Lactobacillus Acidophilus (Bacid Acidophilus) 1 cap PO BID [facility] Last Admin: 03/28/17 09:03 Dose: 1 cap Metformin HCl (Glucophage) 1,000 mg PO BID [facility] Last Admin: 03/28/17 09:06 Dose: 1,000 mg Metronidazole (Flagyl) 500 mg PO Q8 [facility] Last Admin: 03/28/17 06:18 Dose: 500 mg Nystatin/Triamcinolone Acetonide (Mycolog Ii Oint) 1 applic TOP TID [facility] Last Admin: 03/28/17 10:06 Dose: 1 applic Ondansetron HCl (Zofran Tab) 4 mg PO Q4 PRN PRN Reason: Nausea/Vomiting Oxycodone HCl (Oxycontin Extended Release Tab) 20 mg PO Q8 [facility] Pantoprazole Sodium (Protonix Ec Tab) 40 mg PO DAILY [facility] Last Admin: 03/28/17 09:06 Dose: 40 mg Pravastatin Sodium (Pravachol) 40 mg PO HS [facility] Last Admin: 03/27/17 22:31 Dose: 40 mg Pregabalin (Lyrica) 100 mg PO TID [facility] Last Admin: 03/28/17 09:03 Dose: 100 mg Saccharomyces Boulardii (Florastor) 250 mg PO BID [facility] Last Admin: 03/28/17 09:06 Dose: 250 mg Sitagliptin Phosphate (Januvia) 100 mg PO DAILY [facility] Last Admin: 03/28/17 09:07 Dose: 100 mg - Labs Labs: 03/28/17 07:10 Physiatry Overall Plan of Care - Overall Plan of Care Estimated Length of Stay in Weeks: 3 Rehab Impairment: Mobility, Gait, Balance, Coordination Etiologic Diagnosis: Amputee Rehab/Medical Prognosis: Fair - Anticipated Interventions Physical Therapy:: Yes Occupational Therapy:: Yes Speech Therapy:: No Recreational Therapy:: Yes - Therapy Goals Bed Mobility: Supervision Ambulation: Supervision Functional Positional Changes:: Supervision - Discharge Plan Identification of Barriers to Discharge: Home Situation Discharge Destination: Home
--- NOTE | 2017-03-28 11:57 | CP.PCM.CON ---
History of Present Illness - History of Present Illness History of Present Illness: Dr Yo PMR consultation on Cora Grove, born 1960, who has been admitted to [facility] following a right BKA. Has chronic PVD, + tobacco and DM and HTN. She is on chronic pain medications so current regimen hasn't been holding her well. I will try and avoid IVP pain medications on the rehab floor. I discussed this with her at length. + C. Diff on Flagyl since 03/23/17. No loose BM today Review of Systems - Constitutional Constitutional: absent: Anorexia, Chills - EENT Eyes: absent: Change in Vision, Dry Eye Ears: absent: Ear Discharge Nose/Mouth/Throat: absent: Nasal Congestion - Cardiovascular Cardiovascular: absent: Chest Pain - Respiratory Respiratory: absent: Dyspnea, Hemoptysis - Gastrointestinal Gastrointestinal: absent: Abdominal Pain - Neurological Neurological: absent: Abnormal Movements - Psychiatric Psychiatric: Anxiety. absent: Panic Attacks Past Patient History - Infectious Disease Hx of Infectious Diseases: None - Past Medical History & Family History Past Medical History?: Yes - Past Social History Smoking Status: Heavy Smoker > 10 Cigarettes Daily Drugs: Denies Home Situation {Lives}: With Family (1 entry step) - CARDIAC Hx Congestive Heart Failure: Yes Hx Hypercholesterolemia: Yes Hx Hypertension: Yes - PULMONARY Hx Asthma: Yes - NEUROLOGICAL Hx Neurological Disorder: No - HEENT Other/Comment: uses eyeglasses - RENAL Hx Chronic Kidney Disease: No - ENDOCRINE/METABOLIC Hx Diabetes Mellitus Type 2: Yes - HEMATOLOGICAL/ONCOLOGICAL Hx AIDS: No Hx Human Immunodeficiency Virus (HIV): No - INTEGUMENTARY Hx Dermatological Problems: Yes - MUSCULOSKELETAL/RHEUMATOLOGICAL Hx Musculoskeletal Disorders: Yes Hx Falls: No - GASTROINTESTINAL Hx Gastrointestinal Disorders: No - GENITOURINARY/GYNECOLOGICAL Hx Genitourinary Disorders: No - PSYCHIATRIC Hx Anxiety: Yes Hx Depression: Yes Hx Substance Use: No - SURGICAL HISTORY Hx Surgeries: Yes Hx Appendectomy: Yes Hx Carotid Endarterectomy: Yes Hx Cholecystectomy: Yes Other/Comment: I@D rt. foot - ANESTHESIA Hx Anesthesia: Yes Hx Anesthesia Reactions: No Hx Malignant Hyperthermia: No Meds Allergies/Adverse Reactions: Allergies Allergy/AdvReac Type Severity Reaction Status Date / Time vancomycin AdvReac ITCHING Verified 05/22/16 13:09 - Medications Medications: Current Medications Acetaminophen (Tylenol 325mg Tab) 650 mg PO Q4 PRN PRN Reason: Pain, Mild (1-3) Docusate Sodium (Colace) 100 mg PO TID [facility] Ferrous Sulfate (Feosol) 325 mg PO TID [facility] Heparin Sodium (Porcine) (Heparin) 5,000 units SC Q12 [facility] PRN Reason: Protocol Last Admin: 03/28/17 09:07 Dose: 5,000 units Hydromorphone HCl (Dilaudid) 2 mg PO Q4 PRN PRN Reason: pain 4-8/10 Hydromorphone HCl (Dilaudid) 4 mg PO Q4 PRN PRN Reason: pain 9-10/10 Meropenem 1 gm/ Sodium (Chloride) 100 mls @ 100 mls/hr IVPB Q12H [facility] Last Admin: 03/28/17 09:09 Dose: 100 mls/hr Insulin Human Regular (Humulin R) 0 units SC ACHS [facility] Last Admin: 03/28/17 07:21 Dose: 6 units Insulin Lispro Protam/Lispro Human (Humalog Mix 75/25) 16 units SC BID [facility] Last Admin: 03/28/17 09:08 Dose: 16 units Lactobacillus Acidophilus (Bacid Acidophilus) 1 cap PO BID [facility] Last Admin: 03/28/17 09:03 Dose: 1 cap Metformin HCl (Glucophage) 1,000 mg PO BID [facility] Last Admin: 03/28/17 09:06 Dose: 1,000 mg Metronidazole (Flagyl) 500 mg PO Q8 [facility] Last Admin: 03/28/17 06:18 Dose: 500 mg Nystatin/Triamcinolone Acetonide (Mycolog Ii Oint) 1 applic TOP TID [facility] Last Admin: 03/28/17 10:06 Dose: 1 applic Ondansetron HCl (Zofran Tab) 4 mg PO Q4 PRN PRN Reason: Nausea/Vomiting Oxycodone HCl (Oxycontin Extended Release Tab) 20 mg PO Q8 [facility] Pantoprazole Sodium (Protonix Ec Tab) 40 mg PO DAILY [facility] Last Admin: 03/28/17 09:06 Dose: 40 mg Pravastatin Sodium (Pravachol) 40 mg PO HS [facility] Last Admin: 03/27/17 22:31 Dose: 40 mg Pregabalin (Lyrica) 100 mg PO TID [facility] Last Admin: 03/28/17 09:03 Dose: 100 mg Saccharomyces Boulardii (Florastor) 250 mg PO BID [facility] Last Admin: 03/28/17 09:06 Dose: 250 mg Sitagliptin Phosphate (Januvia) 100 mg PO DAILY [facility] Last Admin: 03/28/17 09:07 Dose: 100 mg Physical Exam - Constitutional Appears: Non-toxic (mild discomfort now) - Head Exam Head Exam: ATRAUMATIC, NORMAL INSPECTION, NORMOCEPHALIC - Eye Exam Eye Exam: EOMI - ENT Exam ENT Exam: Mucous Membranes Moist - Respiratory Exam Respiratory Exam: NORMAL BREATHING PATTERN - Cardiovascular Exam Cardiovascular Exam: REGULAR RHYTHM - GI/Abdominal Exam GI & Abdominal Exam: Normal Bowel Sounds - Extremities Exam Extremities exam: Negative for: calf tenderness (left LE) - Neurological Exam Neurological exam: Alert, CN II-XII Intact, Oriented x3 - Psychiatric Exam Psychiatric exam: Anxious (mild), Normal Affect - Skin Skin Exam: Warm Results - Vital Signs Recent Vital Signs: Last Vital Signs Temp 98.1 F 03/28/17 08:40 Pulse 86 03/28/17 08:40 Resp 20 03/28/17 08:40 BP 144/60 03/28/17 08:40 Pulse Ox 97 03/28/17 08:40 - Labs Result Diagrams: 03/28/17 07:10 Labs: Laboratory Results - last 24 hr 03/27/17 03/28/17 03/28/17 21:23 06:07 07:10 WBC 8.8 RBC 2.85 L Hgb 7.9 L Hct 25.0 L MCV 87.6 MCH 27.9 MCHC 31.8 L RDW 17.1 H Plt Count 271 MPV 8.6 Neut % (Auto) 70.8 Lymph % (Auto) 17.8 L Erath % (Auto) 9.0 Eos % (Auto) 1.5 Baso % (Auto) 0.9 Neut # 6.2 Lymph # 1.6 Erath # 0.8 Eos # 0.1 Baso # 0.1 POC Glucose (mg/dL) 234 H 247 H 03/28/17 11:32 WBC RBC Hgb Hct MCV MCH MCHC RDW Plt Count MPV Neut % (Auto) Lymph % (Auto) Erath % (Auto) Eos % (Auto) Baso % (Auto) Neut # Lymph # Erath # Eos # Baso # POC Glucose (mg/dL) 315 H Assessment & Plan - Assessment and Plan (Free Text) Assessment: PT/OT to continue to help increase functional independence Team conference for d/c planning Pain: I will start on Oxycontin 20mg q 8 and d/c percocet and change to either 2 or 4mg dilaudid. Will try and taper as pain decreased Vascular: no evidence of DVT GI: No evidence of constipation or diarrhea now on Flagyl for C. Diff Patient is an excellent acute rehabilitation candidate and will have focused pain management, wound care, PT, OT and recreational therapy to help facilitate a safe and appropriate d/c plan Impairment code 05.4
[2017-03-28] MEDS: oxyCODONE 20 mg ER Tab (oxyCONTIN) PO SCH ×2 (13:33→21:17)
--- NOTE | 2017-03-28 16:36 | CP.PCM.PN ---
Subjective - Date & Time of Evaluation Date of Evaluation: 03/28/17 Time of Evaluation: 16:26 - Subjective Subjective: I D NOTE PATIENTEXAMINED ,CHART REVIEWED FULL CONSULT DICTATED BKA DONE SUTURE LINE IS CLEAN,NO DRAINAGE,AND NO PAIN TO TOUCH NO ENLARGED INGUINAL NODES WILL CONSIDER D/CING IV ANTIBIOTICS IN BEGINNING OF WEEK IF POSSIBLE Objective - Vital Signs/Intake and Output Vital Signs (last 24 hours): Temp Pulse Resp BP Pulse Ox 98.1 F 86 20 144/60 97 03/28/17 08:40 03/28/17 08:40 03/28/17 08:40 03/28/17 08:40 03/28/17 08:40 - Medications Medications: Current Medications Acetaminophen (Tylenol 325mg Tab) 650 mg PO Q4 PRN PRN Reason: Pain, Mild (1-3) Docusate Sodium (Colace) 100 mg PO TID [facility] Last Admin: 03/28/17 12:22 Dose: 100 mg Ferrous Sulfate (Feosol) 325 mg PO TID [facility] Last Admin: 03/28/17 12:22 Dose: 325 mg Heparin Sodium (Porcine) (Heparin) 5,000 units SC Q12 [facility] PRN Reason: Protocol Last Admin: 03/28/17 09:07 Dose: 5,000 units Hydromorphone HCl (Dilaudid) 2 mg PO Q4 PRN PRN Reason: pain 4-8/10 Hydromorphone HCl (Dilaudid) 4 mg PO Q4 PRN PRN Reason: pain 9-10/10 Meropenem 1 gm/ Sodium (Chloride) 100 mls @ 100 mls/hr IVPB Q12H [facility] Last Admin: 03/28/17 09:09 Dose: 100 mls/hr Insulin Human Regular (Humulin R) 0 units SC ACHS [facility] Last Admin: 03/28/17 12:19 Dose: 12 units Insulin Lispro Protam/Lispro Human (Humalog Mix 75/25) 16 units SC BID [facility] Last Admin: 03/28/17 09:08 Dose: 16 units Lactobacillus Acidophilus (Bacid Acidophilus) 1 cap PO BID [facility] Last Admin: 03/28/17 09:03 Dose: 1 cap Metformin HCl (Glucophage) 1,000 mg PO BID [facility] Last Admin: 03/28/17 09:06 Dose: 1,000 mg Metronidazole (Flagyl) 500 mg PO Q8 [facility] Last Admin: 03/28/17 13:35 Dose: 500 mg Nystatin/Triamcinolone Acetonide (Mycolog Ii Oint) 1 applic TOP TID [facility] Last Admin: 03/28/17 13:34 Dose: 1 applic Ondansetron HCl (Zofran Tab) 4 mg PO Q4 PRN PRN Reason: Nausea/Vomiting Oxycodone HCl (Oxycontin Extended Release Tab) 20 mg PO Q8 [facility] Last Admin: 03/28/17 13:33 Dose: 20 mg Pantoprazole Sodium (Protonix Ec Tab) 40 mg PO DAILY [facility] Last Admin: 03/28/17 09:06 Dose: 40 mg Pravastatin Sodium (Pravachol) 40 mg PO HS [facility] Last Admin: 03/27/17 22:31 Dose: 40 mg Pregabalin (Lyrica) 100 mg PO TID [facility] Last Admin: 03/28/17 12:25 Dose: 100 mg Saccharomyces Boulardii (Florastor) 250 mg PO BID [facility] Last Admin: 03/28/17 09:06 Dose: 250 mg Sitagliptin Phosphate (Januvia) 100 mg PO DAILY [facility] Last Admin: 03/28/17 09:07 Dose: 100 mg - Labs Labs: 03/28/17 07:10
[2017-03-28] MEDS: Pravastatin Sodium 40 MG TAB PO SCH (21:19)
--- NOTE | 2017-03-28 22:56 | CON ---
INFECTIOUS DISEASE CONSULTATION HISTORY OF PRESENT ILLNESS: The patient is being seen in acute rehab. The patient has been seen on multiple occasions by myself including day in [facility]. She is a 56-year-old female with long history of uncontrolled diabetes mellitus 2 and chronic and acute osteomyelitis along c cellulitis of the right lower extremity. The patient has been on multiple long-term IV antibiotic regimens for osteomyelitis and cellulitis.She also been on long-term treatment with oral antibiotics. The patient has been on occasion difficult to treat as she was not taking her antibiotics appropriately and also because of her inability to control her blood sugars. She has mostly increasing blood glucose levels and hemoglobin A1c levels. She is being seen in acute rehab because she finally had a below-knee amputation of the right leg. I had a long talk with her in regard to her care and that she would do better if she would take care of her diabetes and have it under control. PHYSICAL EXAMINATION: GENERAL: The patient is alert, cooperative, and oriented to time and place. VITAL SIGNS: She is afebrile. HEENT: Essentially within normal limits. NECK: Supple. LUNGS: Clear. HEART: Regular sinus rhythm. ABDOMEN: Soft, positive bowel sounds. EXTREMITIES: I have reviewed the amputation site. Suture line or staple suture line is intact. There is no discharge. There is no serosanguineous fluid at this point. It feels warm to the touch. Right inguinal area has no adenopathy and the patient at this point has no significant pain and denies any fever or chills. LABORATORY DATA: Her microbiology in the past has shown corynebacterium species and most significantly, she had had Citrobacter freundii. She also has had a past history of coagulase negative staph in blood culture. WBC is 8.8, hemoglobin is 7.9, platelets 271, her polys are 70.8, and lymphs are 17.8. Her blood glucoses are all high 234, 247, and 315. Of note is that her creatinine is 0.6 and the GFR is greater than 60 which for her is excellent. Her iron is within normal limits. TIBC is within normal limits. Ferritin is 273. IMPRESSION AND PLAN: At this point in time, I feel that she should maintained on intravenous antibiotics( meropenem 1 g q.12.) We will hopefully discontinue it on Thursday or Thursday of next week after reevaluating the surgical site and then possibly giving a short course of oral antibiotics Would like to get this patient off antibiotics because she has been on antibiotic therapy for extended periods Chiki Verde MD [facility]
[2017-03-29] MEDS: oxyCODONE 20 mg ER Tab (oxyCONTIN) PO SCH ×3 (06:03→21:08)
[2017-03-29] MEDS: Insulin Regular 100 units/ml SC SCH ×4 (07:19→21:15)
[2017-03-29] MEDS: Lactobacillus Acidophilus 500 MU Cap PO SCH ×2 (08:18→16:55)
[2017-03-29] MEDS: Mycolog II OINT TOP SCH ×3 (08:19→16:51)
[2017-03-29] MEDS: Insulin Lispro Mix 75/25 100 units/ml (HumaLog) 10ml SC SCH ×2 (08:19→16:56)
[2017-03-29] MEDS: Pantoprazole 40 mg EC Tab PO SCH (08:19)
[2017-03-29] MEDS: Saccharomyces Boulardi 250 mg Cap PO SCH ×2 (08:19→16:55)
[2017-03-29] MEDS: Meropenem 1 GM in Sodium Chloride 0.9% 100 ML IVPB SCH ×2 (08:20→20:08)
--- NOTE | 2017-03-29 09:08 | CP.PCM.PN ---
Subjective - Date & Time of Evaluation Date of Evaluation: 03/29/17 Time of Evaluation: 09:05 - Subjective Subjective: Vascular surgery - Dr. Palomares Pt S&E. [facility]. Pt states she still is having some pain in the R stump, some phantom pains, but states overall slowly improving with pain medications. She staets that the stump dressing was changed twice yesterday, once in AM by surgery and again in the evening by ID. She is working with therapy. Pt denies any F/C, SOB/Cp. Objective - Vital Signs/Intake and Output Vital Signs (last 24 hours): Temp Pulse Resp BP Pulse Ox 97.7 F 78 20 134/64 97 03/28/17 20:30 03/28/17 20:30 03/28/17 20:30 03/28/17 20:30 03/28/17 08:40 - Medications Medications: Current Medications Acetaminophen (Tylenol 325mg Tab) 650 mg PO Q4 PRN PRN Reason: Pain, Mild (1-3) Docusate Sodium (Colace) 100 mg PO TID [facility] Last Admin: 03/29/17 08:18 Dose: 100 mg Ferrous Sulfate (Feosol) 325 mg PO TID [facility] Last Admin: 03/29/17 08:18 Dose: 325 mg Heparin Sodium (Porcine) (Heparin) 5,000 units SC Q12 [facility] PRN Reason: Protocol Last Admin: 03/29/17 08:19 Dose: 5,000 units Hydromorphone HCl (Dilaudid) 2 mg PO Q4 PRN PRN Reason: pain 4-8/10 Hydromorphone HCl (Dilaudid) 4 mg PO Q4 PRN PRN Reason: pain 9-10/10 Last Admin: 03/29/17 02:06 Dose: 4 mg Meropenem 1 gm/ Sodium (Chloride) 100 mls @ 100 mls/hr IVPB Q12H [facility] Last Admin: 03/29/17 08:20 Dose: 100 mls/hr Insulin Human Regular (Humulin R) 0 units SC ACHS [facility] Last Admin: 03/29/17 07:19 Dose: 3 units Insulin Lispro Protam/Lispro Human (Humalog Mix 75/25) 16 units SC BID [facility] Last Admin: 03/29/17 08:19 Dose: 16 units Lactobacillus Acidophilus (Bacid Acidophilus) 1 cap PO BID [facility] Last Admin: 03/29/17 08:18 Dose: 1 cap Metformin HCl (Glucophage) 1,000 mg PO BID [facility] Last Admin: 03/29/17 08:18 Dose: 1,000 mg Metronidazole (Flagyl) 500 mg PO Q8 [facility] Last Admin: 03/29/17 06:13 Dose: 500 mg Nystatin/Triamcinolone Acetonide (Mycolog Ii Oint) 1 applic TOP TID [facility] Last Admin: 03/29/17 08:19 Dose: 1 applic Ondansetron HCl (Zofran Tab) 4 mg PO Q4 PRN PRN Reason: Nausea/Vomiting Oxycodone HCl (Oxycontin Extended Release Tab) 20 mg PO Q8 [facility] Last Admin: 03/29/17 06:03 Dose: 20 mg Pantoprazole Sodium (Protonix Ec Tab) 40 mg PO DAILY [facility] Last Admin: 03/29/17 08:19 Dose: 40 mg Pravastatin Sodium (Pravachol) 40 mg PO HS [facility] Last Admin: 03/28/17 21:19 Dose: 40 mg Pregabalin (Lyrica) 100 mg PO TID [facility] Last Admin: 03/29/17 08:18 Dose: 100 mg Saccharomyces Boulardii (Florastor) 250 mg PO BID [facility] Last Admin: 03/29/17 08:19 Dose: 250 mg Sitagliptin Phosphate (Januvia) 100 mg PO DAILY [facility] Last Admin: 03/29/17 08:19 Dose: 100 mg - Labs Labs: 03/28/17 07:10 - Constitutional Appears: No Acute Distress - Head Exam Head Exam: ATRAUMATIC, NORMAL INSPECTION, NORMOCEPHALIC - Eye Exam Eye Exam: Normal appearance - Respiratory Exam Respiratory Exam: NORMAL BREATHING PATTERN. absent: Respiratory Distress - Extremities Exam Additional comments: R bka stump w/ heather bandage and dressing C/d/I - Neurological Exam Neurological Exam: Alert, Oriented x3 - Psychiatric Exam Psychiatric exam: Normal Affect, Normal Mood - Skin Skin Exam: Dry, Intact Assessment and Plan - Assessment and Plan (Free Text) Assessment: 56F with POD#3 s/p R BKA -F/U H/H -Continue Pain control -Physical therapy -Daily dressing change DW Dr Jelani Marshall PGY3
--- NOTE | 2017-03-29 09:51 | CP.PCM.PN ---
Subjective - Date & Time of Evaluation Date of Evaluation: 03/29/17 Time of Evaluation: 09:50 - Subjective Subjective: Patient feels better Has minimal pain on the right stump and claims to have " phantom pain". Has no fever Accuchecks are better. Objective - Vital Signs/Intake and Output Vital Signs (last 24 hours): Temp Pulse Resp BP Pulse Ox 97.7 F 78 20 134/64 97 03/28/17 20:30 03/28/17 20:30 03/28/17 20:30 03/28/17 20:30 03/28/17 08:40 - Medications Medications: Current Medications Acetaminophen (Tylenol 325mg Tab) 650 mg PO Q4 PRN PRN Reason: Pain, Mild (1-3) Docusate Sodium (Colace) 100 mg PO TID [facility] Last Admin: 03/29/17 08:18 Dose: 100 mg Ferrous Sulfate (Feosol) 325 mg PO TID [facility] Last Admin: 03/29/17 08:18 Dose: 325 mg Heparin Sodium (Porcine) (Heparin) 5,000 units SC Q12 [facility] PRN Reason: Protocol Last Admin: 03/29/17 08:19 Dose: 5,000 units Hydromorphone HCl (Dilaudid) 2 mg PO Q4 PRN PRN Reason: pain 4-8/10 Hydromorphone HCl (Dilaudid) 4 mg PO Q4 PRN PRN Reason: pain 9-10/10 Last Admin: 03/29/17 02:06 Dose: 4 mg Meropenem 1 gm/ Sodium (Chloride) 100 mls @ 100 mls/hr IVPB Q12H [facility] Last Admin: 03/29/17 08:20 Dose: 100 mls/hr Insulin Human Regular (Humulin R) 0 units SC ACHS [facility] Last Admin: 03/29/17 07:19 Dose: 3 units Insulin Lispro Protam/Lispro Human (Humalog Mix 75/25) 16 units SC BID [facility] Last Admin: 03/29/17 08:19 Dose: 16 units Lactobacillus Acidophilus (Bacid Acidophilus) 1 cap PO BID [facility] Last Admin: 03/29/17 08:18 Dose: 1 cap Metformin HCl (Glucophage) 1,000 mg PO BID [facility] Last Admin: 03/29/17 08:18 Dose: 1,000 mg Metronidazole (Flagyl) 500 mg PO Q8 [facility] Last Admin: 03/29/17 06:13 Dose: 500 mg Nystatin/Triamcinolone Acetonide (Mycolog Ii Oint) 1 applic TOP TID [facility] Last Admin: 03/29/17 08:19 Dose: 1 applic Ondansetron HCl (Zofran Tab) 4 mg PO Q4 PRN PRN Reason: Nausea/Vomiting Oxycodone HCl (Oxycontin Extended Release Tab) 20 mg PO Q8 [facility] Last Admin: 03/29/17 06:03 Dose: 20 mg Pantoprazole Sodium (Protonix Ec Tab) 40 mg PO DAILY [facility] Last Admin: 03/29/17 08:19 Dose: 40 mg Pravastatin Sodium (Pravachol) 40 mg PO HS [facility] Last Admin: 03/28/17 21:19 Dose: 40 mg Pregabalin (Lyrica) 100 mg PO TID [facility] Last Admin: 03/29/17 08:18 Dose: 100 mg Saccharomyces Boulardii (Florastor) 250 mg PO BID [facility] Last Admin: 03/29/17 08:19 Dose: 250 mg Sitagliptin Phosphate (Januvia) 100 mg PO DAILY [facility] Last Admin: 03/29/17 08:19 Dose: 100 mg - Labs Labs: 03/28/17 07:10
[2017-03-29] MEDS: Pravastatin Sodium 40 MG TAB PO SCH (21:08)
[2017-03-30] MEDS: oxyCODONE 20 mg ER Tab (oxyCONTIN) PO SCH ×3 (05:13→21:48)
[2017-03-30] MEDS: Insulin Regular 100 units/ml SC SCH ×4 (06:50→22:01)
[2017-03-30 07:40] LABS: HEMATOCRIT 25.5 % (34.0-47.0); MEAN CELL VOLUME 88.2 fl (81.0-99.0); MEAN CORPUSCULAR HEMOGLOBIN 28.5 pg (27.0-31.0); MEAN CORPUSCULAR HGB CONC 32.4 g/dL (33.0-37.0); RED CELL DISTRIBUTION WIDTH 17.5 % (11.5-14.5); WHITE BLOOD COUNT 7.1 K/uL (4.8-10.8)
[2017-03-30 07:41] LABS: BLOOD UREA NITROGEN 12 mg/dl (7-17); CALCIUM 8.6 mg/dL (8.4-10.2); CARBON DIOXIDE 28 mmol/L (22-30); CHLORIDE 102 mmol/L (98-107); GFR AFRICAN-AMERICAN > 60; GLUCOSE,RANDOM 151 mg/dL (65-105); POTASSIUM 4.5 MMOL/L (3.6-5.0); SODIUM 135 mmol/l (132-148)
--- NOTE | 2017-03-30 07:41 | CP.PCM.PN ---
Subjective - Date & Time of Evaluation Date of Evaluation: 03/30/17 Time of Evaluation: 06:45 - Subjective Subjective: Vascular Surgery- Dr. Palomares Pt S&E at bedside this AM. no acute events overnight. Pt in TCU. Pain better than yesterday. Dressing C/D/I. denies F/C CP/SOB N/V/D Objective - Vital Signs/Intake and Output Vital Signs (last 24 hours): Temp Pulse Resp BP Pulse Ox 99.8 F H 72 20 130/58 L 96 03/29/17 20:17 03/29/17 20:17 03/29/17 20:17 03/29/17 20:03/29/17 10:00 - Medications Medications: Current Medications Acetaminophen (Tylenol 325mg Tab) 650 mg PO Q4 PRN PRN Reason: Pain, Mild (1-3) Docusate Sodium (Colace) 100 mg PO TID [facility] Last Admin: 03/29/17 16:51 Dose: 100 mg Ferrous Sulfate (Feosol) 325 mg PO TID [facility] Last Admin: 03/29/17 16:51 Dose: 325 mg Heparin Sodium (Porcine) (Heparin) 5,000 units SC Q12 [facility] PRN Reason: Protocol Last Admin: 03/29/17 20:07 Dose: 5,000 units Hydromorphone HCl (Dilaudid) 2 mg PO Q4 PRN PRN Reason: pain 4-810 Last Admin: 03/30/17 01:34 Dose: 2 mg Hydromorphone HCl (Dilaudid) 4 mg PO Q4 PRN PRN Reason: pain 9-04/28 Last Admin: 03/29/17 02:06 Dose: 4 mg Meropenem 1 gm/ Sodium (Chloride) 100 mls @ 100 mls/hr IVPB Q12H [facility] Last Admin: 03/29/17 20:08 Dose: 100 mls/hr Insulin Human Regular (Humulin R) 0 units SC ACHS [facility] Last Admin: 03/30/17 06:50 Dose: 3 units Insulin Lispro Protam/Lispro Human (Humalog Mix 75/25) 16 units SC BID [facility] Last Admin: 03/29/17 16:56 Dose: 16 units Lactobacillus Acidophilus (Bacid Acidophilus) 1 cap PO BID [facility] Last Admin: 03/29/17 16:55 Dose: 1 cap Lactulose (Enulose) 20 gm PO DAILY PRN PRN Reason: Constipation Last Admin: 03/29/17 16:55 Dose: 20 gm Metformin HCl (Glucophage) 1,000 mg PO BID [facility] Last Admin: 03/29/17 16:51 Dose: 1,000 mg Metronidazole (Flagyl) 500 mg PO Q8 [facility] Last Admin: 03/30/17 05:13 Dose: 500 mg Nystatin/Triamcinolone Acetonide (Mycolog Ii Oint) 1 applic TOP TID [facility] Last Admin: 03/29/17 16:51 Dose: 1 applic Ondansetron HCl (Zofran Tab) 4 mg PO Q4 PRN PRN Reason: Nausea/Vomiting Oxycodone HCl (Oxycontin Extended Release Tab) 20 mg PO Q8 [facility] Last Admin: 03/30/17 05:13 Dose: 20 mg Pantoprazole Sodium (Protonix Ec Tab) 40 mg PO DAILY [facility] Last Admin: 03/29/17 08:19 Dose: 40 mg Pravastatin Sodium (Pravachol) 40 mg PO [facility] Last Admin: 03/29/17 21:08 Dose: 40 mg Pregabalin (Lyrica) 100 mg PO TID [facility] Last Admin: 03/29/17 16:57 Dose: 100 mg Saccharomyces Boulardii (Florastor) 250 mg PO BID [facility] Last Admin: 03/29/17 16:55 Dose: 250 mg Sennosides (Senokot Tab) 17.2 mg PO [facility] Last Admin: 03/29/17 21:05 Dose: Not Given Sitagliptin Phosphate (Januvia) 100 mg PO DAILY [facility] Last Admin: 03/29/17 08:19 Dose: 100 mg - Labs Labs: 03/28/17 07:10 - Constitutional Appears: Non-toxic, No Acute Distress - ENT Exam ENT Exam: Mucous Membranes Moist - Respiratory Exam Respiratory Exam: NORMAL BREATHING PATTERN. absent: Accessory Muscle Use, Rales , Rhonchi, Wheezes - Cardiovascular Exam Cardiovascular Exam: +S1, +S2 - GI/Abdominal Exam GI & Abdominal Exam: Soft. absent: Tenderness - Extremities Exam Additional comments: Dressing over RLE C/D/I - Neurological Exam Neurological Exam: Alert, Awake, Oriented x3 - Psychiatric Exam Psychiatric exam: Normal Affect - Skin Skin Exam: Normal Color, Warm Assessment and Plan - Assessment and Plan (Free Text) Assessment: 56F with POD#4 s/p R BKA Plan: -F/U H/H -Continue Pain control -PT -dressing change -further recs per Dr. Jelani Figueroa PGY1
[2017-03-30] MEDS: Saccharomyces Boulardi 250 mg Cap PO SCH ×2 (08:16→16:57)
[2017-03-30] MEDS: Mycolog II OINT TOP SCH ×3 (08:17→17:03)
[2017-03-30] MEDS: Pantoprazole 40 mg EC Tab PO SCH (08:17)
[2017-03-30] MEDS: Lactobacillus Acidophilus 500 MU Cap PO SCH ×2 (08:31→17:07)
[2017-03-30] MEDS: Meropenem 1 GM in Sodium Chloride 0.9% 100 ML IVPB SCH ×2 (08:43→21:50)
[2017-03-30] MEDS: Insulin Lispro Mix 75/25 100 units/ml (HumaLog) 10ml SC SCH ×2 (08:56→16:58)
[2017-03-30] MEDS: Cholestyramine 4 gm/Pkt UD PO SCH ×2 (14:01→17:03)
--- NOTE | 2017-03-30 19:09 | CP.PCM.PN ---
Subjective - Date & Time of Evaluation Date of Evaluation: 03/30/17 Time of Evaluation: 19:06 - Subjective Subjective: I D NOTE HAVE DISCONTINUED MEROPENEM AFTER TODAYs doses also increased DOSE OF FLAGYL DIARRHEA HAS DIMINISHED Objective - Vital Signs/Intake and Output Vital Signs (last 24 hours): Temp Pulse Resp BP Pulse Ox 98.2 F 88 20 132/66 99 03/30/17 07:48 03/30/17 07:48 03/30/17 07:48 03/30/17 07:48 03/30/17 07:48 - Medications Medications: Current Medications Acetaminophen (Tylenol 325mg Tab) 650 mg PO Q4 PRN PRN Reason: Pain, Mild (1-3) Cholestyramine Resin (Questran) 4 gm PO TID [facility] Last Admin: 03/30/17 17:03 Dose: 4 gm Ferrous Sulfate (Feosol) 325 mg PO TID [facility] Last Admin: 03/30/17 16:57 Dose: 325 mg Heparin Sodium (Porcine) (Heparin) 5,000 units SC Q12 [facility] PRN Reason: Protocol Last Admin: 03/30/17 08:54 Dose: 5,000 units Hydromorphone HCl (Dilaudid) 2 mg PO Q4 PRN PRN Reason: pain 4-8/10 Last Admin: 03/30/17 12:32 Dose: 2 mg Hydromorphone HCl (Dilaudid) 4 mg PO Q4 PRN PRN Reason: pain 9-10/10 Last Admin: 03/30/17 17:07 Dose: 4 mg Meropenem 1 gm/ Sodium (Chloride) 100 mls @ 100 mls/hr IVPB Q12H [facility] Stop: 03/31/17 00:05 Last Admin: 03/30/17 08:43 Dose: 100 mls/hr Insulin Human Regular (Humulin R) 0 units SC ACHS [facility] Last Admin: 03/30/17 17:00 Dose: 6 units Insulin Lispro Protam/Lispro Human (Humalog Mix 75/25) 16 units SC BID [facility] Last Admin: 03/30/17 16:58 Dose: 16 units Lactobacillus Acidophilus (Bacid Acidophilus) 1 cap PO BID [facility] Last Admin: 03/30/17 17:07 Dose: 1 cap Metformin HCl (Glucophage) 1,000 mg PO BID [facility] Last Admin: 03/30/17 16:57 Dose: 1,000 mg Metronidazole (Flagyl) 500 mg PO Q6 [facility] Last Admin: 03/30/17 17:04 Dose: 500 mg Nystatin/Triamcinolone Acetonide (Mycolog Ii Oint) 1 applic TOP TID [facility] Last Admin: 03/30/17 17:03 Dose: 1 applic Ondansetron HCl (Zofran Tab) 4 mg PO Q4 PRN PRN Reason: Nausea/Vomiting Oxycodone HCl (Oxycontin Extended Release Tab) 20 mg PO Q8 [facility] Last Admin: 03/30/17 14:00 Dose: 20 mg Pantoprazole Sodium (Protonix Ec Tab) 40 mg PO DAILY [facility] Last Admin: 03/30/17 08:17 Dose: 40 mg Pravastatin Sodium (Pravachol) 40 mg PO HS [facility] Last Admin: 03/29/17 21:08 Dose: 40 mg Pregabalin (Lyrica) 100 mg PO TID [facility] Last Admin: 03/30/17 17:08 Dose: 100 mg Saccharomyces Boulardii (Florastor) 250 mg PO BID [facility] Last Admin: 03/30/17 16:57 Dose: 250 mg Sennosides (Senokot Tab) 17.2 mg PO HS [facility] Last Admin: 03/29/17 21:05 Dose: Not Given Sitagliptin Phosphate (Januvia) 100 mg PO DAILY [facility] Last Admin: 03/30/17 08:17 Dose: 100 mg - Labs Labs: 03/30/17 06:30 03/30/17 06:30
[2017-03-30] MEDS: Pravastatin Sodium 40 MG TAB PO SCH (21:48)
[2017-03-31] MEDS: oxyCODONE 20 mg ER Tab (oxyCONTIN) PO SCH ×3 (06:11→21:31)
[2017-03-31] MEDS: Lactobacillus Acidophilus 500 MU Cap PO SCH ×2 (08:11→17:23)
[2017-03-31] MEDS: Saccharomyces Boulardi 250 mg Cap PO SCH ×2 (08:12→17:17)
[2017-03-31] MEDS: Insulin Lispro Mix 75/25 100 units/ml (HumaLog) 10ml SC SCH ×2 (08:16→17:19)
[2017-03-31] MEDS: Insulin Regular 100 units/ml SC SCH ×4 (08:20→21:32)
[2017-03-31] MEDS: Pantoprazole 40 mg EC Tab PO SCH (08:21)
[2017-03-31] MEDS: Cholestyramine 4 gm/Pkt UD PO SCH ×3 (08:21→17:18)
[2017-03-31] MEDS: Mycolog II OINT TOP SCH ×3 (08:21→17:18)
--- NOTE | 2017-03-31 13:25 | PSY.TMCNF ---
Nursing - Vital Signs Vital Signs (Last 8 hours): Vital Signs 03/31/17 08:26 Temperature 98.2 F Pulse Rate 76 Respiratory 19 Rate Blood Pressure 138/56 L O2 Sat by Pulse 97 Oximetry Pain: 4 - Precautions: Precautions: Fall Prevention, Pressure Ulcer Isolation: Contact - Medications/Other Issues Comment: Pt is at moderate nutritional risk,. Goals: 1: Consume >75% of meals. 2: Maintain wt within 2-3 lbs. of current wt. Follow up assessment due by 04/04/17. - Consults Comment: wound consult seen by RN 03/31, dr. lockett seen 03/30 and d/c IV ABT , for rehab - Skin Incision Site: s/p R BKA Dressing Status: Clean, Dry, Intact Incision: Sutures Intact Incision Line Treatment: jess to R stump. dressing changes done by surgical services asst. jess wiht no drainage- no s.s of infection. xerofom, gauze and wrapped with daryl . - Wound Sacrum Wound Type: Other Undermining: No Wound Drainage Amount: None Wound Drainage Odor: None/Absent Wound Dressing Status: Dry & Intact Comment: no sting spray applied to site. kept clean and dry - Bladder Management Bladder Pattern: Normal Voiding Method: Bedpan Bladder Management: Minimal Assistance - Bowel Management Comment: soft pasty BM x4 times on 03/30 Bowel Management: Moderate Assistance - Transfers Transfers: Moderate Assistance - ADL's ADL's: Minimal Assistance - Pain Management Comments: pt takes dilaudid prn 2mg or 4mg approx 2 to three times a day. pt on routine oxy. - Patient/Family Teaching Comments: medications, pain management, isolation precautions - Goals/Time Frame Comments: - safe improved transfers Physical Therapy - Bed Mobility Bed Mobility: Supervision, Verbal Cues, Contact Guard - Transfers Wheelchair to Mat: Verbal Cues, Moderate Assistance Sit to Stand: Verbal Cues, Moderate Assistance Comment: standing // bars - Ambulation Assistive Devices: N/A Comment: PRE GAIT TASK. -standing trials in // bars with min/mod to attain and min A to maintain in standing (up to 45 seconds) - Stair Negotiation Stairs: Level of Assistance: Not Tested - Standing Balance Static Stand: Moderate Assistance Dynamic Stand: Unable to assess/perform - Pain Management Techniques: Medication, Relaxation Techniques Comment: phantom pain RLE - Insight/Carryover Insight/Carryover: Fair - Patient/Family Education Comment: -patient states difficulty with reading/writing; reports her family assists her with writing/filling out forms and her reading level is not that high. -patient reports she left school at 15 after freshman year to get a job and make money. -education on: therapy schedule, therapy goals, POC, safety, use of call pinto, hand washing, WC mobility, WC positioning, pre-prosthetic education, positioning, endurance - Assessment/Plan Assessment: Ms. Grove continues to demonstrate impaired mobility and requires further education on prosthetic education. Patient has good compliance with education and is motivated to improve. Pt is healing well but requires education on management techniques. PT recommends skilled therapy services to maximize safety and independence with all mobility. PT recommends home discharge at a level with assistance of family and home PT services. - Goals Timeframe: 1 week Goals: -propel WC x 150 feet on indoor surfaces with mod I. -propel WC x 150 feet on uneven surfaces (outdoor) with CG. -manage WC with VC. -Initiate stair training with pt ascend/descend 1 step with max A and B handrails. - Initiate gait training with pt hopping in parallel bars x 5 ft with max A. - Bed < -- > chair transfers without device and min A. -Sit < -- > stand transfers with RW and max A x 1. -Rolling with supervision. -Sit < > supine with supervision. -state 2 signs of infection. -state proper positioning to avoid contractures - Provider Therapist: M License Number: [id number] Occupational Therapy - Arousal/Attention/Orientation Patient Orientation: Person, Place, Time, Appropriate to Age, Appropriate to Situation - ADL/IADL Self Feeding: Supervision, Set-up Help Grooming: Supervision, Set-up Help Dressing-Upper Extremity: Supervision, Set-up Help Dressing-Lower Extremity: Moderate Assistance - Sitting Balance Static Sitting: Supervision Dynamic Sitting: Reaches across midline, Reaches within base of support, Requires supervision - Transfers Wheelchair to Bed Transfers: Minimal Assistance Toilet Transfers: Minimal Assistance Comment: Squat pivot transfers with arm rest removed - Wheelchair Management Level of Assistance: Supervision - Upper Extremity Status Right Upper Extremity Comment: ROM = WFL Left Upper Extremity Comment: ROM = WFL - Pain Alleviating Techniques: Medication, Relaxation Techniques Comment: phantom pain RLE - Insight/Carryover Insight/Carryover: Fair - Patient/Family Education Comment: -patient states difficulty with reading/writing; reports her family assists her with writing/filling out forms and her reading level is not that high. -patient reports she left school at 15 after freshman year to get a job and make money. -education on: therapy schedule, therapy goals, POC, safety, use of call pinto, hand washing, WC mobility, WC positioning, pre-prosthetic education, positioning, endurance - Assessment/Plan Assessment: Ms. Grove continues to demonstrate impaired mobility and requires further education on prosthetic education. Patient has good compliance with education and is motivated to improve. Pt is healing well but requires education on management techniques. PT recommends skilled therapy services to maximize safety and independence with all mobility. PT recommends home discharge at a WC level with assistance of family and home PT services. - Goals Timeframe: 1 week Goals: -propel WC x 150 feet on indoor surfaces with mod I. -propel WC x 150 feet on uneven surfaces (outdoor) with CG. -manage WC with VC. -Initiate stair training with pt ascend/descend 1 step with max A and B handrails. - Initiate gait training with pt hopping in parallel bars x 5 ft with max A. - Bed < -- > chair transfers without device and min A. -Sit < -- > stand transfers with RW and max A x 1. -Rolling with supervision. -Sit < > supine with supervision. -state 2 signs of infection. -state proper positioning to avoid contractures - Provider Therapist: Lo Castro MS, OTR/L License Number: [id number] Speech Therapy - Plan Assessment: Ms. Grove continues to demonstrate impaired mobility and requires further education on prosthetic education. Patient has good compliance with education and is motivated to improve. Pt is healing well but requires education on management techniques. PT recommends skilled therapy services to maximize safety and independence with all mobility. PT recommends home discharge at a WC level with assistance of family and home PT services. Recreational Therapy - Assessment Assessment/Plan: Ms. Grove continues to demonstrate impaired mobility and requires further education on prosthetic education. Patient has good compliance with education and is motivated to improve. Pt is healing well but requires education on management techniques. PT recommends skilled therapy services to maximize safety and independence with all mobility. PT recommends home discharge at a level with assistance of family and home PT services. Nutrition - Current Diet Current Diet/ Supplement/ Feedings: Heart healthy, moderate consistent CHO diet - Appetite Percent Meal Consumed: 75-100% - Comments Comments: medications, pain management, isolation precautions - Assessment/Goals/Time Frame Assessment/Goals/Time Frame: Pt is at moderate nutritional risk,. Goals: 1: Consume >75% of meals. 2: Maintain wt within 2-3 lbs. of current wt. Follow up assessment due by 04/04/17. - Provider Provider: Kaycee Watts MS, RD Case Management - Psychosocial Assessment Support Systems: Resides with son Jin [phone] Psychological Interventions/Needs: Pt is alert and oriented x3 but expresses feeling frustration over current medical condition Discharge Concerns: Pt resides in an apartment with 1 step to enter and son works overnight; Wchr may not fit in apt Patient/Family Meeting: CM met with pt and rehab team Intervention/Goal/Outcome:: 1. Plan: pt for discharge home with skilled homecare D/C date TBD 2. Emotional support provided 3. caregiver training to be provided 4. DME TBD - Discharge Plan Discharge Plan: Home with significant other/family, Home with services Home Services: [facility] - Provider Provider: Gabby Ward MSW, CROCHETER License Number: [id number] Rehabilitation Plan - Treatment Plan Treatment Plan: Physical Therapy, Occupational Therapy, Dietary, Pain Management , Wound Care, Patient/Family Education - Discharge Plan Estimated Date of Discharge: 04/13/17 Discharge to: Home
--- NOTE | 2017-03-31 17:44 | CP.PCM.PN ---
Subjective - Date & Time of Evaluation Date of Evaluation: 03/31/17 Time of Evaluation: 17:43 - Subjective Subjective: Patient seen in room pain is well controlled and no need for IV pain medications she is still reluctant to push herself in someways, but this is known by staff and they are trying to help motivate her further continue current care Objective - Vital Signs/Intake and Output Vital Signs (last 24 hours): Temp Pulse Resp BP Pulse Ox 98.2 F 76 19 138/56 L 97 03/31/17 08:26 03/31/17 08:26 03/31/17 08:26 03/31/17 08:26 03/31/17 08:26 - Medications Medications: Current Medications Acetaminophen (Tylenol 325mg Tab) 650 mg PO Q4 PRN PRN Reason: Pain, Mild (1-3) Cholestyramine Resin (Questran) 4 gm PO TID [facility] Last Admin: 03/31/17 17:18 Dose: 4 gm Ferrous Sulfate (Feosol) 325 mg PO TID [facility] Last Admin: 03/31/17 17:17 Dose: 325 mg Heparin Sodium (Porcine) (Heparin) 5,000 units SC Q12 [facility] PRN Reason: Protocol Last Admin: 03/31/17 08:13 Dose: 5,000 units Hydromorphone HCl (Dilaudid) 2 mg PO Q4 PRN PRN Reason: pain scale 4-8 Last Admin: 03/31/17 15:50 Dose: 2 mg Hydromorphone HCl (Dilaudid) 4 mg PO Q4 PRN PRN Reason: pain scale 9-10 Insulin Human Regular (Humulin R) 0 units SC ACHS [facility] Last Admin: 03/31/17 17:19 Dose: 3 units Insulin Lispro Protam/Lispro Human (Humalog Mix 75/25) 16 units SC BID [facility] Last Admin: 03/31/17 17:19 Dose: 16 units Lactobacillus Acidophilus (Bacid Acidophilus) 1 cap PO BID [facility] Last Admin: 03/31/17 17:23 Dose: 1 cap Metformin HCl (Glucophage) 1,000 mg PO BID [facility] Last Admin: 03/31/17 17:17 Dose: 1,000 mg Metronidazole (Flagyl) 500 mg PO Q6 [facility] Last Admin: 03/31/17 17:17 Dose: 500 mg Nystatin/Triamcinolone Acetonide (Mycolog Ii Oint) 1 applic TOP TID [facility] Last Admin: 03/31/17 17:18 Dose: 1 applic Ondansetron HCl (Zofran Tab) 4 mg PO Q4 PRN PRN Reason: Nausea/Vomiting Oxycodone HCl (Oxycontin Extended Release Tab) 20 mg PO Q8 [facility] Last Admin: 03/31/17 13:54 Dose: 20 mg Pantoprazole Sodium (Protonix Ec Tab) 40 mg PO DAILY [facility] Last Admin: 03/31/17 08:21 Dose: 40 mg Pravastatin Sodium (Pravachol) 40 mg PO HS [facility] Last Admin: 03/30/17 21:48 Dose: 40 mg Pregabalin (Lyrica) 100 mg PO TID [facility] Last Admin: 03/31/17 17:23 Dose: 100 mg Saccharomyces Boulardii (Florastor) 250 mg PO BID [facility] Last Admin: 03/31/17 17:17 Dose: 250 mg Sennosides (Senokot Tab) 17.2 mg PO [facility] Last Admin: 03/30/17 21:49 Dose: Not Given Sitagliptin Phosphate (Januvia) 100 mg PO DAILY [facility] Last Admin: 03/31/17 08:20 Dose: 100 mg - Labs Labs: 03/30/17 06:30 03/30/17 06:30
[2017-03-31] MEDS: Pravastatin Sodium 40 MG TAB PO SCH (21:31)
[2017-04-01] MEDS: oxyCODONE 20 mg ER Tab (oxyCONTIN) PO SCH ×3 (06:40→21:46)
[2017-04-01] MEDS: Insulin Regular 100 units/ml SC SCH ×4 (06:43→21:48)
[2017-04-01] MEDS: Lactobacillus Acidophilus 500 MU Cap PO SCH ×2 (08:20→16:24)
[2017-04-01] MEDS: Cholestyramine 4 gm/Pkt UD PO SCH ×4 (08:22→16:29)
[2017-04-01] MEDS: Saccharomyces Boulardi 250 mg Cap PO SCH ×2 (08:23→16:25)
[2017-04-01] MEDS: Insulin Lispro Mix 75/25 100 units/ml (HumaLog) 10ml SC SCH ×2 (08:24→16:26)
[2017-04-01] MEDS: Pantoprazole 40 mg EC Tab PO SCH (08:27)
[2017-04-01] MEDS: Mycolog II OINT TOP SCH ×3 (08:27→16:28)
--- NOTE | 2017-04-01 10:14 | CP.PCM.PN ---
Subjective - Date & Time of Evaluation Date of Evaluation: 03/30/17 Time of Evaluation: 10:14 - Subjective Subjective: Patient is doing a lot better Has no chest pain or SOB afebrile. Objective - Vital Signs/Intake and Output Vital Signs (last 24 hours): Temp Pulse Resp BP Pulse Ox 97.8 F 81 19 124/70 97 04/01/17 08:05 04/01/17 08:05 04/01/17 08:05 04/01/17 08:05 04/01/17 08:05 - Medications Medications: Current Medications Acetaminophen (Tylenol 325mg Tab) 650 mg PO Q4 PRN PRN Reason: Pain, Mild (1-3) Cholestyramine Resin (Questran) 4 gm PO TID [facility] Last Admin: 04/01/17 08:22 Dose: 4 gm Ferrous Sulfate (Feosol) 325 mg PO TID [facility] Last Admin: 04/01/17 08:22 Dose: 325 mg Heparin Sodium (Porcine) (Heparin) 5,000 units SC Q12 [facility] PRN Reason: Protocol Last Admin: 04/01/17 08:23 Dose: 5,000 units Hydromorphone HCl (Dilaudid) 2 mg PO Q4 PRN PRN Reason: pain scale 4-8 Last Admin: 03/31/17 15:50 Dose: 2 mg Hydromorphone HCl (Dilaudid) 4 mg PO Q4 PRN PRN Reason: pain scale 9-10 Last Admin: 04/01/17 08:20 Dose: 4 mg Insulin Human Regular (Humulin R) 0 units SC ACHS [facility] Last Admin: 04/01/17 06:43 Dose: 6 units Insulin Lispro Protam/Lispro Human (Humalog Mix 75/25) 16 units SC BID [facility] Last Admin: 04/01/17 08:24 Dose: 16 units Lactobacillus Acidophilus (Bacid Acidophilus) 1 cap PO BID [facility] Last Admin: 04/01/17 08:20 Dose: 1 cap Metformin HCl (Glucophage) 1,000 mg PO BID [facility] Last Admin: 04/01/17 08:23 Dose: 1,000 mg Metronidazole (Flagyl) 500 mg PO Q6 [facility] Last Admin: 04/01/17 06:40 Dose: 500 mg Nystatin/Triamcinolone Acetonide (Mycolog Ii Oint) 1 applic TOP TID [facility] Last Admin: 04/01/17 08:27 Dose: 1 applic Ondansetron HCl (Zofran Tab) 4 mg PO Q4 PRN PRN Reason: Nausea/Vomiting Oxycodone HCl (Oxycontin Extended Release Tab) 20 mg PO Q8 [facility] Last Admin: 04/01/17 06:40 Dose: 20 mg Pantoprazole Sodium (Protonix Ec Tab) 40 mg PO DAILY [facility] Last Admin: 04/01/17 08:27 Dose: 40 mg Pravastatin Sodium (Pravachol) 40 mg PO HS [facility] Last Admin: 03/31/17 21:31 Dose: 40 mg Pregabalin (Lyrica) 100 mg PO TID [facility] Last Admin: 04/01/17 08:26 Dose: 100 mg Saccharomyces Boulardii (Florastor) 250 mg PO BID [facility] Last Admin: 04/01/17 08:23 Dose: Not Given Sennosides (Senokot Tab) 17.2 mg PO [facility] Last Admin: 03/31/17 21:33 Dose: Not Given Sitagliptin Phosphate (Januvia) 100 mg PO DAILY [facility] Last Admin: 04/01/17 08:24 Dose: 100 mg - Labs Labs: 03/30/17 06:30 03/30/17 06:30
--- NOTE | 2017-04-01 10:15 | CP.PCM.PN ---
Subjective - Date & Time of Evaluation Date of Evaluation: 03/31/17 Time of Evaluation: 10:00 - Subjective Subjective: Patient remains stable Noted C diff positive but no toxin Has no fever Was very constipated over the weekend. Objective - Vital Signs/Intake and Output Vital Signs (last 24 hours): Temp Pulse Resp BP Pulse Ox 97.8 F 81 19 124/70 97 04/01/17 08:05 04/01/17 08:05 04/01/17 08:05 04/01/17 08:05 04/01/17 08:05 - Medications Medications: Current Medications Acetaminophen (Tylenol 325mg Tab) 650 mg PO Q4 PRN PRN Reason: Pain, Mild (1-3) Cholestyramine Resin (Questran) 4 gm PO TID [facility] Last Admin: 04/01/17 08:22 Dose: 4 gm Ferrous Sulfate (Feosol) 325 mg PO TID [facility] Last Admin: 04/01/17 08:22 Dose: 325 mg Heparin Sodium (Porcine) (Heparin) 5,000 units SC Q12 [facility] PRN Reason: Protocol Last Admin: 04/01/17 08:23 Dose: 5,000 units Hydromorphone HCl (Dilaudid) 2 mg PO Q4 PRN PRN Reason: pain scale 4-8 Last Admin: 03/31/17 15:50 Dose: 2 mg Hydromorphone HCl (Dilaudid) 4 mg PO Q4 PRN PRN Reason: pain scale 9-10 Last Admin: 04/01/17 08:20 Dose: 4 mg Insulin Human Regular (Humulin R) 0 units SC ACHS [facility] Last Admin: 04/01/17 06:43 Dose: 6 units Insulin Lispro Protam/Lispro Human (Humalog Mix 75/25) 16 units SC BID [facility] Last Admin: 04/01/17 08:24 Dose: 16 units Lactobacillus Acidophilus (Bacid Acidophilus) 1 cap PO BID [facility] Last Admin: 04/01/17 08:20 Dose: 1 cap Metformin HCl (Glucophage) 1,000 mg PO BID [facility] Last Admin: 04/01/17 08:23 Dose: 1,000 mg Metronidazole (Flagyl) 500 mg PO Q6 [facility] Last Admin: 04/01/17 06:40 Dose: 500 mg Nystatin/Triamcinolone Acetonide (Mycolog Ii Oint) 1 applic TOP TID [facility] Last Admin: 04/01/17 08:27 Dose: 1 applic Ondansetron HCl (Zofran Tab) 4 mg PO Q4 PRN PRN Reason: Nausea/Vomiting Oxycodone HCl (Oxycontin Extended Release Tab) 20 mg PO Q8 [facility] Last Admin: 04/01/17 06:40 Dose: 20 mg Pantoprazole Sodium (Protonix Ec Tab) 40 mg PO DAILY [facility] Last Admin: 04/01/17 08:27 Dose: 40 mg Pravastatin Sodium (Pravachol) 40 mg PO [facility] Last Admin: 03/31/17 21:31 Dose: 40 mg Pregabalin (Lyrica) 100 mg PO TID [facility] Last Admin: 04/01/17 08:26 Dose: 100 mg Saccharomyces Boulardii (Florastor) 250 mg PO BID [facility] Last Admin: 04/01/17 08:23 Dose: Not Given Sennosides (Senokot Tab) 17.2 mg PO [facility] Last Admin: 03/31/17 21:33 Dose: Not Given Sitagliptin Phosphate (Januvia) 100 mg PO DAILY [facility] Last Admin: 04/01/17 08:24 Dose: 100 mg - Labs Labs: 03/30/17 06:30 03/30/17 06:30
--- NOTE | 2017-04-01 10:16 | CP.PCM.PN ---
Subjective - Date & Time of Evaluation Date of Evaluation: 04/01/17 Time of Evaluation: 10:15 - Subjective Subjective: Has diarrhea today Has no chest pain or SOB Has less pain on the stump. Wound is healing well. Has no fever, accuchecks are better. Objective - Vital Signs/Intake and Output Vital Signs (last 24 hours): Temp Pulse Resp BP Pulse Ox 97.8 F 81 19 124/70 97 04/01/17 08:05 04/01/17 08:05 04/01/17 08:05 04/01/17 08:05 04/01/17 08:05 - Medications Medications: Current Medications Acetaminophen (Tylenol 325mg Tab) 650 mg PO Q4 PRN PRN Reason: Pain, Mild (1-3) Cholestyramine Resin (Questran) 4 gm PO TID [facility] Last Admin: 04/01/17 08:22 Dose: 4 gm Ferrous Sulfate (Feosol) 325 mg PO TID [facility] Last Admin: 04/01/17 08:22 Dose: 325 mg Heparin Sodium (Porcine) (Heparin) 5,000 units SC Q12 [facility] PRN Reason: Protocol Last Admin: 04/01/17 08:23 Dose: 5,000 units Hydromorphone HCl (Dilaudid) 2 mg PO Q4 PRN PRN Reason: pain scale 4-8 Last Admin: 03/31/17 15:50 Dose: 2 mg Hydromorphone HCl (Dilaudid) 4 mg PO Q4 PRN PRN Reason: pain scale 9-10 Last Admin: 04/01/17 08:20 Dose: 4 mg Insulin Human Regular (Humulin R) 0 units SC ACHS [facility] Last Admin: 04/01/17 06:43 Dose: 6 units Insulin Lispro Protam/Lispro Human (Humalog Mix 75/25) 16 units SC BID [facility] Last Admin: 04/01/17 08:24 Dose: 16 units Lactobacillus Acidophilus (Bacid Acidophilus) 1 cap PO BID [facility] Last Admin: 04/01/17 08:20 Dose: 1 cap Metformin HCl (Glucophage) 1,000 mg PO BID [facility] Last Admin: 04/01/17 08:23 Dose: 1,000 mg Metronidazole (Flagyl) 500 mg PO Q6 [facility] Last Admin: 04/01/17 06:40 Dose: 500 mg Nystatin/Triamcinolone Acetonide (Mycolog Ii Oint) 1 applic TOP TID [facility] Last Admin: 04/01/17 08:27 Dose: 1 applic Ondansetron HCl (Zofran Tab) 4 mg PO Q4 PRN PRN Reason: Nausea/Vomiting Oxycodone HCl (Oxycontin Extended Release Tab) 20 mg PO Q8 [facility] Last Admin: 04/01/17 06:40 Dose: 20 mg Pantoprazole Sodium (Protonix Ec Tab) 40 mg PO DAILY [facility] Last Admin: 04/01/17 08:27 Dose: 40 mg Pravastatin Sodium (Pravachol) 40 mg PO [facility] Last Admin: 03/31/17 21:31 Dose: 40 mg Pregabalin (Lyrica) 100 mg PO TID [facility] Last Admin: 04/01/17 08:26 Dose: 100 mg Saccharomyces Boulardii (Florastor) 250 mg PO BID [facility] Last Admin: 04/01/17 08:23 Dose: Not Given Sennosides (Senokot Tab) 17.2 mg PO [facility] Last Admin: 03/31/17 21:33 Dose: Not Given Sitagliptin Phosphate (Januvia) 100 mg PO DAILY [facility] Last Admin: 04/01/17 08:24 Dose: 100 mg - Labs Labs: 03/30/17 06:30 03/30/17 06:30
--- NOTE | 2017-04-01 17:18 | CP.PCM.PN ---
Subjective - Date & Time of Evaluation Date of Evaluation: 04/01/17 Time of Evaluation: 15:30 - Subjective Subjective: Patient seen and examined in the TCU today. NAEO. Patient denies any pain or other symptoms. States she is participating with PT Objective - Vital Signs/Intake and Output Vital Signs (last 24 hours): Temp Pulse Resp BP Pulse Ox 97.8 F 81 19 124/70 97 04/01/17 08:05 04/01/17 08:05 04/01/17 08:05 04/01/17 08:05 04/01/17 08:05 - Medications Medications: Current Medications Acetaminophen (Tylenol 325mg Tab) 650 mg PO Q4 PRN PRN Reason: Pain, Mild (1-3) Cholestyramine Resin (Questran) 4 gm PO TID [facility] Last Admin: 04/01/17 16:29 Dose: Not Given Ferrous Sulfate (Feosol) 325 mg PO TID [facility] Last Admin: 04/01/17 16:24 Dose: 325 mg Heparin Sodium (Porcine) (Heparin) 5,000 units SC Q12 [facility] PRN Reason: Protocol Last Admin: 04/01/17 08:23 Dose: 5,000 units Hydromorphone HCl (Dilaudid) 2 mg PO Q4 PRN PRN Reason: pain scale 4-8 Last Admin: 03/31/17 15:50 Dose: 2 mg Hydromorphone HCl (Dilaudid) 4 mg PO Q4 PRN PRN Reason: pain scale 9-10 Last Admin: 04/01/17 08:20 Dose: 4 mg Insulin Human Regular (Humulin R) 0 units SC ACHS [facility] Last Admin: 04/01/17 16:26 Dose: 3 units Insulin Lispro Protam/Lispro Human (Humalog Mix 75/25) 16 units SC BID [facility] Last Admin: 04/01/17 16:26 Dose: 16 units Lactobacillus Acidophilus (Bacid Acidophilus) 1 cap PO BID [facility] Last Admin: 04/01/17 16:24 Dose: 1 cap Metformin HCl (Glucophage) 1,000 mg PO BID [facility] Last Admin: 04/01/17 16:25 Dose: 1,000 mg Metronidazole (Flagyl) 500 mg PO Q6 [facility] Last Admin: 04/01/17 16:59 Dose: 500 mg Nystatin/Triamcinolone Acetonide (Mycolog Ii Oint) 1 applic TOP TID [facility] Last Admin: 04/01/17 16:28 Dose: 1 applic Ondansetron HCl (Zofran Tab) 4 mg PO Q4 PRN PRN Reason: Nausea/Vomiting Oxycodone HCl (Oxycontin Extended Release Tab) 20 mg PO Q8 [facility] Last Admin: 04/01/17 13:20 Dose: 20 mg Pantoprazole Sodium (Protonix Ec Tab) 40 mg PO DAILY [facility] Last Admin: 04/01/17 08:27 Dose: 40 mg Pravastatin Sodium (Pravachol) 40 mg PO HS [facility] Last Admin: 03/31/17 21:31 Dose: 40 mg Pregabalin (Lyrica) 100 mg PO TID [facility] Last Admin: 04/01/17 16:28 Dose: 100 mg Saccharomyces Boulardii (Florastor) 250 mg PO BID [facility] Last Admin: 04/01/17 16:25 Dose: 250 mg Sitagliptin Phosphate (Januvia) 100 mg PO DAILY [facility] Last Admin: 04/01/17 08:24 Dose: 100 mg - Labs Labs: 03/30/17 06:30 03/30/17 06:30 - Constitutional Appears: Non-toxic, Younger Than Stated Age - Head Exam Head Exam: ATRAUMATIC, NORMOCEPHALIC - Eye Exam Eye Exam: Normal appearance. absent: Conjunctival injection, Scleral icterus - ENT Exam ENT Exam: Mucous Membranes Moist, Normal Oropharynx - Respiratory Exam Respiratory Exam: NORMAL BREATHING PATTERN. absent: Accessory Muscle Use, Respiratory Distress - Cardiovascular Exam Cardiovascular Exam: RRR - GI/Abdominal Exam GI & Abdominal Exam: Soft. absent: Distended - Extremities Exam Additional comments: left leg: normal inspection Right BKA stump: Surgical dressing dry and intact with moderate saturation from the xeroform and minimal sanguinous drainage. Incision well approximated with jess, no erythema, or foul smelling drainage from the incision - Neurological Exam Neurological Exam: Alert, Awake, Oriented x3 - Psychiatric Exam Psychiatric exam: Normal Affect, Normal Mood - Skin Skin Exam: Dry, Normal Color, Warm Assessment and Plan - Assessment and Plan (Free Text) Assessment: 56F with POD#6 s/p R BKA Plan: -Change dressing Q2-3 -Monitor vitals -Continue PT Discussed with Dr. Jelani Mckeon, PGY2
--- NOTE | 2017-04-01 18:27 | CP.PCM.PN ---
Subjective - Date & Time of Evaluation Date of Evaluation: 04/01/17 Time of Evaluation: 18:25 - Subjective Subjective: I D NOTE C.DIFF TOXIN ORDERED AFEBRILE LESS PAIN CONTINUE TO HOLD ANTIBIOTICS Objective - Vital Signs/Intake and Output Vital Signs (last 24 hours): Temp Pulse Resp BP Pulse Ox 97.8 F 81 19 124/70 97 04/01/17 08:05 04/01/17 08:05 04/01/17 08:05 04/01/17 08:05 04/01/17 08:05 - Medications Medications: Current Medications Acetaminophen (Tylenol 325mg Tab) 650 mg PO Q4 PRN PRN Reason: Pain, Mild (1-3) Cholestyramine Resin (Questran) 4 gm PO TID [facility] Last Admin: 04/01/17 16:29 Dose: Not Given Ferrous Sulfate (Feosol) 325 mg PO TID [facility] Last Admin: 04/01/17 16:24 Dose: 325 mg Heparin Sodium (Porcine) (Heparin) 5,000 units SC Q12 [facility] PRN Reason: Protocol Last Admin: 04/01/17 08:23 Dose: 5,000 units Hydromorphone HCl (Dilaudid) 2 mg PO Q4 PRN PRN Reason: pain scale 4-8 Last Admin: 03/31/17 15:50 Dose: 2 mg Hydromorphone HCl (Dilaudid) 4 mg PO Q4 PRN PRN Reason: pain scale 9-10 Last Admin: 04/01/17 08:20 Dose: 4 mg Insulin Human Regular (Humulin R) 0 units SC ACHS [facility] Last Admin: 04/01/17 16:26 Dose: 3 units Insulin Lispro Protam/Lispro Human (Humalog Mix 75/25) 16 units SC BID [facility] Last Admin: 04/01/17 16:26 Dose: 16 units Lactobacillus Acidophilus (Bacid Acidophilus) 1 cap PO BID [facility] Last Admin: 04/01/17 16:24 Dose: 1 cap Metformin HCl (Glucophage) 1,000 mg PO BID [facility] Last Admin: 04/01/17 16:25 Dose: 1,000 mg Metronidazole (Flagyl) 500 mg PO Q6 [facility] Last Admin: 04/01/17 16:59 Dose: 500 mg Nystatin/Triamcinolone Acetonide (Mycolog Ii Oint) 1 applic TOP TID [facility] Last Admin: 04/01/17 16:28 Dose: 1 applic Ondansetron HCl (Zofran Tab) 4 mg PO Q4 PRN PRN Reason: Nausea/Vomiting Oxycodone HCl (Oxycontin Extended Release Tab) 20 mg PO Q8 [facility] Last Admin: 04/01/17 13:20 Dose: 20 mg Pantoprazole Sodium (Protonix Ec Tab) 40 mg PO DAILY [facility] Last Admin: 04/01/17 08:27 Dose: 40 mg Pravastatin Sodium (Pravachol) 40 mg PO HS [facility] Last Admin: 03/31/17 21:31 Dose: 40 mg Pregabalin (Lyrica) 100 mg PO TID [facility] Last Admin: 04/01/17 16:28 Dose: 100 mg Saccharomyces Boulardii (Florastor) 250 mg PO BID [facility] Last Admin: 04/01/17 16:25 Dose: 250 mg Sitagliptin Phosphate (Januvia) 100 mg PO DAILY [facility] Last Admin: 04/01/17 08:24 Dose: 100 mg - Labs Labs: 03/30/17 06:30 03/30/17 06:30
[2017-04-01] MEDS: Pravastatin Sodium 40 MG TAB PO SCH (21:47)
[2017-04-02] MEDS: oxyCODONE 20 mg ER Tab (oxyCONTIN) PO SCH ×3 (06:21→21:30)
[2017-04-02] MEDS: Insulin Regular 100 units/ml SC SCH ×4 (07:32→21:43)
[2017-04-02] MEDS: Insulin Lispro Mix 75/25 100 units/ml (HumaLog) 10ml SC SCH ×2 (08:15→16:36)
[2017-04-02] MEDS: Lactobacillus Acidophilus 500 MU Cap PO SCH ×2 (08:15→16:35)
[2017-04-02] MEDS: Pantoprazole 40 mg EC Tab PO SCH (08:16)
[2017-04-02] MEDS: Mycolog II OINT TOP SCH ×3 (08:16→16:37)
[2017-04-02] MEDS: Cholestyramine 4 gm/Pkt UD PO SCH ×3 (08:17→16:36)
[2017-04-02] MEDS: Saccharomyces Boulardi 250 mg Cap PO SCH ×2 (08:17→16:37)
--- NOTE | 2017-04-02 09:11 | CP.PCM.PN ---
Subjective - Date & Time of Evaluation Date of Evaluation: 04/02/17 Time of Evaluation: 09:10 - Subjective Subjective: Patient is stable. Objective - Vital Signs/Intake and Output Vital Signs (last 24 hours): Temp Pulse Resp BP Pulse Ox 98.1 F 82 20 135/67 99 04/01/17 19:58 04/01/17 19:58 04/01/17 19:58 04/01/17 19:58 04/01/17 19:58 - Medications Medications: Current Medications Acetaminophen (Tylenol 325mg Tab) 650 mg PO Q4 PRN PRN Reason: Pain, Mild (1-3) Cholestyramine Resin (Questran) 4 gm PO TID [facility] Last Admin: 04/02/17 08:17 Dose: 4 gm Ferrous Sulfate (Feosol) 325 mg PO TID [facility] Last Admin: 04/02/17 08:17 Dose: 325 mg Heparin Sodium (Porcine) (Heparin) 5,000 units SC Q12 [facility] PRN Reason: Protocol Last Admin: 04/02/17 08:16 Dose: 5,000 units Hydromorphone HCl (Dilaudid) 2 mg PO Q4 PRN PRN Reason: pain scale 4-8 Last Admin: 03/31/17 15:50 Dose: 2 mg Hydromorphone HCl (Dilaudid) 4 mg PO Q4 PRN PRN Reason: pain scale 9-10 Last Admin: 04/01/17 08:20 Dose: 4 mg Insulin Human Regular (Humulin R) 0 units SC ACHS [facility] Last Admin: 04/02/17 07:32 Dose: 6 units Insulin Lispro Protam/Lispro Human (Humalog Mix 75/25) 16 units SC BID [facility] Last Admin: 04/02/17 08:15 Dose: 16 units Lactobacillus Acidophilus (Bacid Acidophilus) 1 cap PO BID [facility] Last Admin: 04/02/17 08:15 Dose: 1 cap Metformin HCl (Glucophage) 1,000 mg PO BID [facility] Last Admin: 04/02/17 08:17 Dose: 1,000 mg Metronidazole (Flagyl) 500 mg PO Q6 [facility] Last Admin: 04/02/17 06:21 Dose: 500 mg Nystatin/Triamcinolone Acetonide (Mycolog Ii Oint) 1 applic TOP TID [facility] Last Admin: 04/02/17 08:16 Dose: 1 applic Ondansetron HCl (Zofran Tab) 4 mg PO Q4 PRN PRN Reason: Nausea/Vomiting Oxycodone HCl (Oxycontin Extended Release Tab) 20 mg PO Q8 [facility] Last Admin: 04/02/17 06:21 Dose: 20 mg Pantoprazole Sodium (Protonix Ec Tab) 40 mg PO DAILY [facility] Last Admin: 04/02/17 08:16 Dose: 40 mg Pravastatin Sodium (Pravachol) 40 mg PO HS [facility] Last Admin: 04/01/17 21:47 Dose: 40 mg Pregabalin (Lyrica) 100 mg PO TID [facility] Last Admin: 04/02/17 08:15 Dose: 100 mg Saccharomyces Boulardii (Florastor) 250 mg PO BID [facility] Last Admin: 04/02/17 08:17 Dose: 250 mg Sitagliptin Phosphate (Januvia) 100 mg PO DAILY [facility] Last Admin: 04/02/17 08:18 Dose: 100 mg - Labs Labs: 03/30/17 06:30 03/30/17 06:30
[2017-04-02 11:31] LABS: BASO # 0.1 K/uL (0.0-0.2); BASO % 0.6 % (0.0-2.0); EOS # 0.4 K/uL (0.0-0.7); EOS % 4.7 % (0.0-4.0); HEMATOCRIT 26.6 % (34.0-47.0); LYMPH # 1.6 K/uL (1.0-4.3); MEAN CORPUSCULAR HEMOGLOBIN 28.3 pg (27.0-31.0); MEAN CORPUSCULAR HGB CONC 32.2 g/dL (33.0-37.0); MEAN PLATELET VOLUME 9.1 fl (7.2-11.7); MONO # 0.8 K/uL (0.0-0.8); MONO % 9.5 % (0.0-10.0); NEUT # 5.7 K/uL (1.8-7.0); NEUT % 66.2 % (50.0-75.0); NRBC % 0.1 % (0.0-0.0); RED CELL DISTRIBUTION WIDTH 17.3 % (11.5-14.5); WHITE BLOOD COUNT 8.7 K/uL (4.8-10.8)
[2017-04-02 11:57] LABS: ALB/GLOB RATIO 0.8 (1.0-2.1); ALKALINE PHOSPHATASE 193 U/L (38-126); ALT/SGPT 20 U/L (9-52); AST/SGOT 25 U/L (14-36); BILIRUBIN,TOTAL 0.3 mg/dl (0.2-1.3); BLOOD UREA NITROGEN 12 mg/dl (7-17); CALCIUM 8.3 mg/dL (8.4-10.2); CARBON DIOXIDE 24 mmol/L (22-30); CHLORIDE 103 mmol/L (98-107); GFR AFRICAN-AMERICAN > 60; GLUCOSE,RANDOM 210 mg/dL (65-105); POTASSIUM 4.2 MMOL/L (3.6-5.0); SODIUM 135 mmol/l (132-148); TOTAL PROTEIN 6.6 G/DL (6.3-8.2)
[2017-04-02] MEDS: Pravastatin Sodium 40 MG TAB PO SCH (21:31)
[2017-04-03] MEDS: oxyCODONE 20 mg ER Tab (oxyCONTIN) PO SCH ×3 (05:57→21:06)
[2017-04-03] MEDS: Insulin Regular 100 units/ml SC SCH ×4 (06:56→21:06)
[2017-04-03] MEDS: Lactobacillus Acidophilus 500 MU Cap PO SCH ×2 (08:59→18:08)
[2017-04-03] MEDS: Saccharomyces Boulardi 250 mg Cap PO SCH ×2 (09:00→17:48)
[2017-04-03] MEDS: Cholestyramine 4 gm/Pkt UD PO SCH ×3 (09:01→17:46)
[2017-04-03] MEDS: Mycolog II OINT TOP SCH ×3 (09:01→18:06)
[2017-04-03] MEDS: Pantoprazole 40 mg EC Tab PO SCH (09:01)
[2017-04-03] MEDS: Insulin Lispro Mix 75/25 100 units/ml (HumaLog) 10ml SC SCH ×2 (09:02→17:48)
--- NOTE | 2017-04-03 10:20 | CP.PCM.PN ---
Subjective - Date & Time of Evaluation Date of Evaluation: 04/03/17 Time of Evaluation: 10:18 - Subjective Subjective: patient is stable Has no chest pain or SOB Has no fever, Objective - Vital Signs/Intake and Output Vital Signs (last 24 hours): Temp Pulse Resp BP Pulse Ox 97.8 F 85 20 153/64 H 100 04/02/17 20:20 04/02/17 20:20 04/02/17 20:20 04/02/17 20:20 04/02/17 20:20 - Medications Medications: Current Medications Acetaminophen (Tylenol 325mg Tab) 650 mg PO Q4 PRN PRN Reason: Pain, Mild (1-3) Cholestyramine Resin (Questran) 4 gm PO TID [facility] Last Admin: 04/03/17 09:01 Dose: 4 gm Ferrous Sulfate (Feosol) 325 mg PO TID [facility] Last Admin: 04/03/17 09:00 Dose: 325 mg Heparin Sodium (Porcine) (Heparin) 5,000 units SC Q12 [facility] PRN Reason: Protocol Last Admin: 04/03/17 09:02 Dose: 5,000 units Hydromorphone HCl (Dilaudid) 2 mg PO Q4 PRN PRN Reason: pain scale 4-8 Last Admin: 04/03/17 09:19 Dose: 2 mg Hydromorphone HCl (Dilaudid) 4 mg PO Q4 PRN PRN Reason: pain scale 9-10 Last Admin: 04/01/17 08:20 Dose: 4 mg Insulin Human Regular (Humulin R) 0 units SC ACHS [facility] Last Admin: 04/03/17 06:56 Dose: 3 units Insulin Lispro Protam/Lispro Human (Humalog Mix 75/25) 16 units SC BID [facility] Last Admin: 04/03/17 09:02 Dose: 16 units Lactobacillus Acidophilus (Bacid Acidophilus) 1 cap PO BID [facility] Last Admin: 04/03/17 08:59 Dose: 1 cap Metformin HCl (Glucophage) 1,000 mg PO BID [facility] Last Admin: 04/03/17 09:00 Dose: 1,000 mg Metronidazole (Flagyl) 500 mg PO Q6 [facility] Last Admin: 04/03/17 05:57 Dose: 500 mg Nystatin/Triamcinolone Acetonide (Mycolog Ii Oint) 1 applic TOP TID [facility] Last Admin: 04/03/17 09:01 Dose: 1 applic Ondansetron HCl (Zofran Tab) 4 mg PO Q4 PRN PRN Reason: Nausea/Vomiting Oxycodone HCl (Oxycontin Extended Release Tab) 20 mg PO Q8 [facility] Last Admin: 04/03/17 05:57 Dose: 20 mg Pantoprazole Sodium (Protonix Ec Tab) 40 mg PO DAILY [facility] Last Admin: 04/03/17 09:01 Dose: 40 mg Pravastatin Sodium (Pravachol) 40 mg PO HS [facility] Last Admin: 04/02/17 21:31 Dose: 40 mg Pregabalin (Lyrica) 100 mg PO TID [facility] Last Admin: 04/03/17 09:14 Dose: 100 mg Saccharomyces Boulardii (Florastor) 250 mg PO BID [facility] Last Admin: 04/03/17 09:00 Dose: 250 mg Sitagliptin Phosphate (Januvia) 100 mg PO DAILY [facility] Last Admin: 04/03/17 09:02 Dose: 100 mg - Labs Labs: 04/02/17 11:00 04/02/17 11:00
--- NOTE | 2017-04-03 14:08 | CP.PCM.PN ---
Subjective - Date & Time of Evaluation Date of Evaluation: 04/03/17 Time of Evaluation: 13:00 - Subjective Subjective: no acute stump pain Objective - Vital Signs/Intake and Output Vital Signs (last 24 hours): Temp Pulse Resp BP Pulse Ox 97.8 F 85 20 153/64 H 100 04/02/17 20:20 04/02/17 20:20 04/02/17 20:20 04/02/17 20:20 04/02/17 20:20 - Medications Medications: Current Medications Acetaminophen (Tylenol 325mg Tab) 650 mg PO Q4 PRN PRN Reason: Pain, Mild (1-3) Cholestyramine Resin (Questran) 4 gm PO TID [facility] Last Admin: 04/03/17 12:15 Dose: 4 gm Ferrous Sulfate (Feosol) 325 mg PO TID [facility] Last Admin: 04/03/17 12:16 Dose: 325 mg Heparin Sodium (Porcine) (Heparin) 5,000 units SC Q12 [facility] PRN Reason: Protocol Last Admin: 04/03/17 09:02 Dose: 5,000 units Hydromorphone HCl (Dilaudid) 2 mg PO Q4 PRN PRN Reason: pain scale 4-8 Last Admin: 04/03/17 09:19 Dose: 2 mg Hydromorphone HCl (Dilaudid) 4 mg PO Q4 PRN PRN Reason: pain scale 9-10 Last Admin: 04/01/17 08:20 Dose: 4 mg Insulin Human Regular (Humulin R) 0 units SC ACHS [facility] Last Admin: 04/03/17 11:30 Dose: 3 units Insulin Lispro Protam/Lispro Human (Humalog Mix 75/25) 16 units SC BID [facility] Last Admin: 04/03/17 09:02 Dose: 16 units Lactobacillus Acidophilus (Bacid Acidophilus) 1 cap PO BID [facility] Last Admin: 04/03/17 08:59 Dose: 1 cap Metformin HCl (Glucophage) 1,000 mg PO BID [facility] Last Admin: 04/03/17 09:00 Dose: 1,000 mg Metronidazole (Flagyl) 500 mg PO Q6 [facility] Last Admin: 04/03/17 12:15 Dose: 500 mg Nystatin/Triamcinolone Acetonide (Mycolog Ii Oint) 1 applic TOP TID [facility] Last Admin: 04/03/17 12:14 Dose: 1 applic Ondansetron HCl (Zofran Tab) 4 mg PO Q4 PRN PRN Reason: Nausea/Vomiting Oxycodone HCl (Oxycontin Extended Release Tab) 20 mg PO Q8 [facility] Last Admin: 04/03/17 05:57 Dose: 20 mg Pantoprazole Sodium (Protonix Ec Tab) 40 mg PO DAILY [facility] Last Admin: 04/03/17 09:01 Dose: 40 mg Pravastatin Sodium (Pravachol) 40 mg PO HS [facility] Last Admin: 04/02/17 21:31 Dose: 40 mg Pregabalin (Lyrica) 100 mg PO TID [facility] Last Admin: 04/03/17 12:19 Dose: 100 mg Saccharomyces Boulardii (Florastor) 250 mg PO BID [facility] Last Admin: 04/03/17 09:00 Dose: 250 mg Sitagliptin Phosphate (Januvia) 100 mg PO DAILY [facility] Last Admin: 04/03/17 09:02 Dose: 100 mg - Labs Labs: 04/02/17 11:00 04/02/17 11:00 - Head Exam Head Exam: ATRAUMATIC, NORMAL INSPECTION, NORMOCEPHALIC - Eye Exam Eye Exam: EOMI, Normal appearance, PERRL Pupil Exam: NORMAL ACCOMODATION - ENT Exam ENT Exam: Mucous Membranes Moist, Normal Exam - Neck Exam Neck Exam: Normal Inspection - Respiratory Exam Respiratory Exam: NORMAL BREATHING PATTERN - Cardiovascular Exam Cardiovascular Exam: REGULAR RHYTHM - GI/Abdominal Exam GI & Abdominal Exam: Normal Bowel Sounds - Rectal Exam Rectal Exam: NORMAL INSPECTION - Exam External exam: NORMAL EXTERNAL EXAM - Extremities Exam Extremities Exam: Full ROM, Normal Capillary Refill - Back Exam Back Exam: NORMAL INSPECTION - Neurological Exam Neurological Exam: Alert, Awake Neuro motor strength exam: Left Upper Extremity: 4, Right Upper Extremity: 4, Left Lower Extremity: 4, Right Lower Extremity: 2/1 - Psychiatric Exam Psychiatric exam: Normal Affect, Normal Mood - Skin Skin Exam: Intact Assessment and Plan (1) Acute kidney failure Status: Acute (2) Acute on chronic renal failure Status: Acute (3) Anemia Status: Acute (4) Bilateral swelling of feet Assessment & Plan: BKA plan for physical, occupational and rec covering for Dr Strell Status: Acute (5) Bleeding Status: Acute (6) Blister of foot Status: Acute (7) Burning sensation Status: Acute (8) Carotid artery stenosis Status: Acute
[2017-04-03] MEDS: Pravastatin Sodium 40 MG TAB PO SCH (21:08)
[2017-04-04] MEDS: oxyCODONE 20 mg ER Tab (oxyCONTIN) PO SCH ×3 (05:01→21:32)
[2017-04-04] MEDS: Insulin Regular 100 units/ml SC SCH ×4 (06:50→21:33)
[2017-04-04] MEDS: Lactobacillus Acidophilus 500 MU Cap PO SCH ×2 (08:33→17:09)
[2017-04-04] MEDS: Pantoprazole 40 mg EC Tab PO SCH (08:35)
[2017-04-04] MEDS: Mycolog II OINT TOP SCH ×3 (08:35→17:00)
[2017-04-04] MEDS: Insulin Lispro Mix 75/25 100 units/ml (HumaLog) 10ml SC SCH ×2 (08:36→17:09)
[2017-04-04] MEDS: Cholestyramine 4 gm/Pkt UD PO SCH ×3 (08:36→17:09)
[2017-04-04] MEDS: Saccharomyces Boulardi 250 mg Cap PO SCH ×2 (08:38→17:09)
[2017-04-04] MEDS: Pravastatin Sodium 40 MG TAB PO SCH (21:32)
[2017-04-05] MEDS: oxyCODONE 20 mg ER Tab (oxyCONTIN) PO SCH ×3 (06:25→21:20)
[2017-04-05] MEDS: Insulin Regular 100 units/ml SC SCH ×4 (07:07→21:21)
[2017-04-05] MEDS: Pantoprazole 40 mg EC Tab PO SCH (08:12)
[2017-04-05] MEDS: Lactobacillus Acidophilus 500 MU Cap PO SCH ×2 (08:12→16:42)
[2017-04-05] MEDS: Saccharomyces Boulardi 250 mg Cap PO SCH ×2 (08:12→16:43)
[2017-04-05] MEDS: Insulin Lispro Mix 75/25 100 units/ml (HumaLog) 10ml SC SCH ×2 (08:13→16:39)
[2017-04-05] MEDS: Mycolog II OINT TOP SCH ×3 (08:13→16:41)
[2017-04-05] MEDS: Cholestyramine 4 gm/Pkt UD PO SCH (08:18)
--- NOTE | 2017-04-05 10:36 | CP.PCM.PN ---
Subjective - Date & Time of Evaluation Date of Evaluation: 04/04/17 Time of Evaluation: 10:00 - Subjective Subjective: Patient remains stable Objective - Vital Signs/Intake and Output Vital Signs (last 24 hours): Temp Pulse Resp BP Pulse Ox 97.7 F 75 20 128/76 98 04/05/17 08:00 04/05/17 08:00 04/05/17 08:00 04/05/17 08:00 04/05/17 08:00 - Medications Medications: Current Medications Acetaminophen (Tylenol 325mg Tab) 650 mg PO Q4 PRN PRN Reason: Pain, Mild (1-3) Ferrous Sulfate (Feosol) 325 mg PO TID [facility] Last Admin: 04/05/17 08:12 Dose: 325 mg Heparin Sodium (Porcine) (Heparin) 5,000 units SC Q12 [facility] PRN Reason: Protocol Last Admin: 04/05/17 08:14 Dose: 5,000 units Hydromorphone HCl (Dilaudid) 2 mg PO Q4 PRN PRN Reason: pain scale 4-8 Hydromorphone HCl (Dilaudid) 4 mg PO Q4 PRN PRN Reason: pain scale 9-10 Insulin Human Regular (Humulin R) 0 units SC ACHS [facility] Last Admin: 04/05/17 07:07 Dose: 15 units Insulin Lispro Protam/Lispro Human (Humalog Mix 75/25) 16 units SC BID [facility] Last Admin: 04/05/17 08:13 Dose: 16 units Lactobacillus Acidophilus (Bacid Acidophilus) 1 cap PO BID [facility] Last Admin: 04/05/17 08:12 Dose: 1 cap Metformin HCl (Glucophage) 1,000 mg PO BID [facility] Last Admin: 04/05/17 08:12 Dose: 1,000 mg Metronidazole (Flagyl) 500 mg PO Q6 [facility] Last Admin: 04/05/17 06:25 Dose: 500 mg Nystatin/Triamcinolone Acetonide (Mycolog Ii Oint) 1 applic TOP TID [facility] Last Admin: 04/05/17 08:13 Dose: 1 applic Ondansetron HCl (Zofran Tab) 4 mg PO Q4 PRN PRN Reason: Nausea/Vomiting Oxycodone HCl (Oxycontin Extended Release Tab) 20 mg PO Q8 [facility] Pantoprazole Sodium (Protonix Ec Tab) 40 mg PO DAILY [facility] Last Admin: 04/05/17 08:12 Dose: 40 mg Pravastatin Sodium (Pravachol) 40 mg PO HS [facility] Last Admin: 04/04/17 21:32 Dose: 40 mg Pregabalin (Lyrica) 100 mg PO TID [facility] Last Admin: 04/05/17 08:12 Dose: 100 mg Saccharomyces Boulardii (Florastor) 250 mg PO BID [facility] Last Admin: 04/05/17 08:12 Dose: 250 mg Sitagliptin Phosphate (Januvia) 100 mg PO DAILY [facility] Last Admin: 04/05/17 08:12 Dose: 100 mg - Labs Labs: 04/02/17 11:00 04/02/17 11:00
--- NOTE | 2017-04-05 10:36 | CP.PCM.PN ---
Subjective - Date & Time of Evaluation Date of Evaluation: 04/05/17 Time of Evaluation: 10:36 - Subjective Subjective: Patient remains stable Has no chest pain or SOB. Afebrile. Objective - Vital Signs/Intake and Output Vital Signs (last 24 hours): Temp Pulse Resp BP Pulse Ox 97.7 F 75 20 128/76 98 04/05/17 08:00 04/05/17 08:00 04/05/17 08:00 04/05/17 08:00 04/05/17 08:00 - Medications Medications: Current Medications Acetaminophen (Tylenol 325mg Tab) 650 mg PO Q4 PRN PRN Reason: Pain, Mild (1-3) Ferrous Sulfate (Feosol) 325 mg PO TID [facility] Last Admin: 04/05/17 08:12 Dose: 325 mg Heparin Sodium (Porcine) (Heparin) 5,000 units SC Q12 [facility] PRN Reason: Protocol Last Admin: 04/05/17 08:14 Dose: 5,000 units Hydromorphone HCl (Dilaudid) 2 mg PO Q4 PRN PRN Reason: pain scale 4-8 Hydromorphone HCl (Dilaudid) 4 mg PO Q4 PRN PRN Reason: pain scale 9-10 Insulin Human Regular (Humulin R) 0 units SC ACHS [facility] Last Admin: 04/05/17 07:07 Dose: 15 units Insulin Lispro Protam/Lispro Human (Humalog Mix 75/25) 16 units SC BID [facility] Last Admin: 04/05/17 08:13 Dose: 16 units Lactobacillus Acidophilus (Bacid Acidophilus) 1 cap PO BID [facility] Last Admin: 04/05/17 08:12 Dose: 1 cap Metformin HCl (Glucophage) 1,000 mg PO BID [facility] Last Admin: 04/05/17 08:12 Dose: 1,000 mg Metronidazole (Flagyl) 500 mg PO Q6 [facility] Last Admin: 04/05/17 06:25 Dose: 500 mg Nystatin/Triamcinolone Acetonide (Mycolog Ii Oint) 1 applic TOP TID [facility] Last Admin: 04/05/17 08:13 Dose: 1 applic Ondansetron HCl (Zofran Tab) 4 mg PO Q4 PRN PRN Reason: Nausea/Vomiting Oxycodone HCl (Oxycontin Extended Release Tab) 20 mg PO Q8 [facility] Pantoprazole Sodium (Protonix Ec Tab) 40 mg PO DAILY [facility] Last Admin: 04/05/17 08:12 Dose: 40 mg Pravastatin Sodium (Pravachol) 40 mg PO HS [facility] Last Admin: 04/04/17 21:32 Dose: 40 mg Pregabalin (Lyrica) 100 mg PO TID [facility] Last Admin: 04/05/17 08:12 Dose: 100 mg Saccharomyces Boulardii (Florastor) 250 mg PO BID [facility] Last Admin: 04/05/17 08:12 Dose: 250 mg Sitagliptin Phosphate (Januvia) 100 mg PO DAILY [facility] Last Admin: 04/05/17 08:12 Dose: 100 mg - Labs Labs: 04/02/17 11:00 04/02/17 11:00
[2017-04-05] MEDS: Pravastatin Sodium 40 MG TAB PO SCH (21:19)
[2017-04-06] MEDS: oxyCODONE 20 mg ER Tab (oxyCONTIN) PO SCH ×3 (06:25→21:23)
[2017-04-06] MEDS: Insulin Regular 100 units/ml SC SCH ×4 (06:56→21:22)
[2017-04-06] MEDS: Lactobacillus Acidophilus 500 MU Cap PO SCH ×2 (08:24→17:08)
[2017-04-06] MEDS: Saccharomyces Boulardi 250 mg Cap PO SCH ×2 (08:25→17:09)
[2017-04-06] MEDS: Insulin Lispro Mix 75/25 100 units/ml (HumaLog) 10ml SC SCH ×2 (08:25→17:10)
[2017-04-06] MEDS: Mycolog II OINT TOP SCH ×3 (08:27→17:22)
[2017-04-06] MEDS: Pantoprazole 40 mg EC Tab PO SCH (08:28)
[2017-04-06] MEDS: Bismuth Subsalicylate 262 mg/15 ml Sus (240 ml) PO PRN ×3 (12:04→21:46)
[2017-04-06] MEDS: Pravastatin Sodium 40 MG TAB PO SCH (21:24)
[2017-04-07] MEDS ORDERED: oxyCODONE 20 mg ER Tab (oxyCONTIN) PO ONE (06:00)
[2017-04-07] MEDS: oxyCODONE 20 mg ER Tab (oxyCONTIN) PO SCH (06:25)
[2017-04-07] MEDS: Insulin Regular 100 units/ml SC SCH ×4 (06:51→21:35)
[2017-04-07] MEDS: Saccharomyces Boulardi 250 mg Cap PO SCH ×2 (07:59→17:43)
[2017-04-07] MEDS: Pantoprazole 40 mg EC Tab PO SCH (08:01)
[2017-04-07] MEDS: Insulin Lispro Mix 75/25 100 units/ml (HumaLog) 10ml SC SCH ×2 (08:02→17:43)
[2017-04-07] MEDS: Mycolog II OINT TOP SCH ×3 (08:03→17:44)
[2017-04-07] MEDS: Lactobacillus Acidophilus 500 MU Cap PO SCH ×2 (08:05→17:42)
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
--- NOTE | 2017-04-07 16:02 | CP.PCM.PN ---
Subjective - Date & Time of Evaluation Date of Evaluation: 04/07/17 Time of Evaluation: 14:30 - Subjective Subjective: Vascular Surgery- Dr. Palomares Pt S&E. No acute events. Pt tolerating rehab well. Dressing change today. Xeroform, 4x4, krilex, with SHLOMO. Incision clean dry intact. Denies F/C CP/SOB N/ V/D Objective - Vital Signs/Intake and Output Vital Signs (last 24 hours): Temp Pulse Resp BP Pulse Ox 97.9 F 71 20 125/64 97 04/07/17 08:56 04/07/17 08:56 04/07/17 08:56 04/07/17 08:56 04/07/17 08:34 - Medications Medications: Current Medications Acetaminophen (Tylenol 325mg Tab) 650 mg PO Q4 PRN PRN Reason: Pain, Mild (1-3) Bismuth Subsalicylate (Pepto-Bismol) 262 mg PO Q1 PRN PRN Reason: Diarrhea Last Admin: 04/06/17 21:46 Dose: 262 mg Ferrous Sulfate (Feosol) 325 mg PO TID [facility] Last Admin: 04/07/17 12:44 Dose: 325 mg Heparin Sodium (Porcine) (Heparin) 5,000 units SC Q12 [facility] PRN Reason: Protocol Last Admin: 04/07/17 08:00 Dose: 5,000 units Hydromorphone HCl (Dilaudid) 2 mg PO Q4 PRN PRN Reason: Pain, moderate (4-7) Insulin Human Regular (Humulin R) 0 units SC ACHS [facility] Last Admin: 04/07/17 12:47 Dose: 6 units Insulin Lispro Protam/Lispro Human (Humalog Mix 75/25) 20 units SC BID [facility] Lactobacillus Acidophilus (Bacid Acidophilus) 1 cap PO BID [facility] Last Admin: 04/07/17 08:05 Dose: 1 cap Metronidazole (Flagyl) 500 mg PO Q6 [facility] Last Admin: 04/07/17 12:44 Dose: 500 mg Nystatin/Triamcinolone Acetonide (Mycolog Ii Oint) 1 applic TOP TID [facility] Last Admin: 04/07/17 12:50 Dose: Not Given Ondansetron HCl (Zofran Tab) 4 mg PO Q4 PRN PRN Reason: Nausea/Vomiting Pantoprazole Sodium (Protonix Ec Tab) 40 mg PO DAILY [facility] Last Admin: 04/07/17 08:01 Dose: 40 mg Pravastatin Sodium (Pravachol) 40 mg PO HS [facility] Last Admin: 04/06/17 21:24 Dose: 40 mg Pregabalin (Lyrica) 100 mg PO TID [facility] Last Admin: 04/07/17 12:46 Dose: 100 mg Saccharomyces Boulardii (Florastor) 250 mg PO BID [facility] Last Admin: 04/07/17 07:59 Dose: 250 mg Sitagliptin Phosphate (Januvia) 100 mg PO DAILY [facility] Last Admin: 04/07/17 08:00 Dose: 100 mg - Labs Labs: 04/02/17 11:00 04/02/17 11:00 - Constitutional Appears: Non-toxic, No Acute Distress - Head Exam Head Exam: ATRAUMATIC - Eye Exam Eye Exam: EOMI. absent: Scleral icterus - Respiratory Exam Respiratory Exam: NORMAL BREATHING PATTERN. absent: Accessory Muscle Use, Rhonchi, Respiratory Distress - Cardiovascular Exam Cardiovascular Exam: +S1, +S2. absent: Bradycardia, Tachycardia - GI/Abdominal Exam GI & Abdominal Exam: Soft. absent: Distended, Tenderness - Extremities Exam Additional comments: Right BKA dressing C/D/I. No Erythema or induration - Neurological Exam Neurological Exam: Alert, Awake, Oriented x3 - Skin Skin Exam: Intact, Normal Color Assessment and Plan - Assessment and Plan (Free Text) Assessment: 56F s/p R BKA POD#12 Plan: - dressing changes q3 - plan to remove every other staple on thursday - c/w physical therapy - further recs per Dr. Jelani Figueroa PGY1
--- NOTE | 2017-04-07 16:11 | PN ---
DATE: SUBJECTIVE: A 56-year-old female status post right below-knee amputation. PHYSICAL EXAMINATION VITAL SIGNS: Stable. NECK: Supple. CHEST: Symmetrical. HEART: Sounds S1 and S2. ABDOMEN: Benign. EXTREMITIES: No clubbing, cyanosis, or edema. IMPRESSION AND PLAN: Right below-knee amputation, peripheral vascular disease, obesity. The patient is status post . The patient is significantly impaired with rapidity to participate in one or more mobility related activities of daily living such as toileting, sitting, dressing, grooming, bathing, and customary locations in the home. The mobility can be sufficiently resolved by an appropriate seated cane or walker since the patient is not able to ambulate for long distances. The patient's home provides an adequate access between rooms, maneuvering space, and surfaces for the use of wheel chair that has provided. The patient has sufficient upper body strength to self propel a light standard wheelchair, the use of standard wheelchair will significantly improve the patient's ability to participate in the activities of daily living and she would use it on regular basis at home. The patient has expressive willingness and ability to use the wheelchair that has provided at the home being that the patient is unable to shift the weight due to peripheral artery disease, which requires reclining back to alleviate the pressure. Amaury Whiting MD cc: Enoch Yo MD
[2017-04-07] MEDS: Bismuth Subsalicylate 262 mg/15 ml Sus (240 ml) PO PRN (16:34)
[2017-04-07] MEDS: Pravastatin Sodium 40 MG TAB PO SCH (21:26)
[2017-04-08] MEDS: Bismuth Subsalicylate 262 mg/15 ml Sus (240 ml) PO PRN ×2 (01:47→03:15)
[2017-04-08] MEDS: Insulin Regular 100 units/ml SC SCH ×4 (06:48→21:54)
[2017-04-08] MEDS: Lactobacillus Acidophilus 500 MU Cap PO SCH ×2 (08:33→17:05)
[2017-04-08] MEDS: Pantoprazole 40 mg EC Tab PO SCH (08:33)
[2017-04-08] MEDS: Mycolog II OINT TOP SCH ×3 (08:33→17:05)
[2017-04-08] MEDS: Saccharomyces Boulardi 250 mg Cap PO SCH ×2 (08:34→17:05)
[2017-04-08] MEDS: Insulin Lispro Mix 75/25 100 units/ml (HumaLog) 10ml SC SCH ×2 (08:34→17:04)
[2017-04-08] MEDS ORDERED: Pantoprazole 40 mg EC Tab PO ONE (13:00)
[2017-04-08] MEDS: Vitamins A & D Oint UD Foilpak TOP SCH (17:06)
--- NOTE | 2017-04-08 19:29 | CP.PCM.PN ---
Subjective - Date & Time of Evaluation Date of Evaluation: 04/08/17 Time of Evaluation: 09:00 - Subjective Subjective: no acute complaints Objective - Vital Signs/Intake and Output Vital Signs (last 24 hours): Temp Pulse Resp BP Pulse Ox 96.4 F L 72 20 146/58 L 96 04/08/17 07:41 04/08/17 07:41 04/08/17 07:41 04/08/17 07:41 04/08/17 07:41 - Medications Medications: Current Medications Acetaminophen (Tylenol 325mg Tab) 650 mg PO Q4 PRN PRN Reason: Pain, Mild (1-3) Ferrous Sulfate (Feosol) 325 mg PO TID [facility] Last Admin: 04/08/17 17:05 Dose: 325 mg Heparin Sodium (Porcine) (Heparin) 5,000 units SC Q12 [facility] PRN Reason: Protocol Last Admin: 04/08/17 08:34 Dose: 5,000 units Hydromorphone HCl (Dilaudid) 2 mg PO Q4 PRN PRN Reason: Pain, moderate (4-7) Last Admin: 04/08/17 16:58 Dose: 2 mg Insulin Human Regular (Humulin R) 0 units SC ACHS [facility] Last Admin: 04/08/17 17:00 Dose: 6 units Insulin Lispro Protam/Lispro Human (Humalog Mix 75/25) 20 units SC BID [facility] Last Admin: 04/08/17 17:04 Dose: 20 units Lactobacillus Acidophilus (Bacid Acidophilus) 1 cap PO BID [facility] Last Admin: 04/08/17 17:05 Dose: 1 cap Nystatin/Triamcinolone Acetonide (Mycolog Ii Oint) 1 applic TOP TID [facility] Last Admin: 04/08/17 17:05 Dose: 1 applic Ondansetron HCl (Zofran Tab) 4 mg PO Q4 PRN PRN Reason: Nausea/Vomiting Oxycodone HCl (Oxycontin Extended Release Tab) 20 mg PO Q12 [facility] Pantoprazole Sodium (Protonix Ec Tab) 40 mg PO DAILY [facility] Last Admin: 04/08/17 08:33 Dose: 40 mg Pravastatin Sodium (Pravachol) 40 mg PO HS [facility] Last Admin: 04/07/17 21:26 Dose: 40 mg Pregabalin (Lyrica) 100 mg PO TID [facility] Last Admin: 04/08/17 17:00 Dose: 100 mg Saccharomyces Boulardii (Florastor) 250 mg PO BID [facility] Last Admin: 04/08/17 17:05 Dose: 250 mg Sitagliptin Phosphate (Januvia) 100 mg PO DAILY [facility] Last Admin: 04/08/17 08:33 Dose: 100 mg Vitamin A (Vitamin A & D Oint Ud Foilpak) 1 ea TOP BID [facility] Last Admin: 04/08/17 17:06 Dose: 1 ea - Labs Labs: 04/02/17 11:00 04/02/17 11:00 - Head Exam Head Exam: ATRAUMATIC, NORMAL INSPECTION, NORMOCEPHALIC - Eye Exam Eye Exam: Normal appearance Pupil Exam: NORMAL ACCOMODATION, PERRL - ENT Exam ENT Exam: Mucous Membranes Moist - Respiratory Exam Respiratory Exam: NORMAL BREATHING PATTERN - Cardiovascular Exam Cardiovascular Exam: REGULAR RHYTHM - GI/Abdominal Exam GI & Abdominal Exam: Normal Bowel Sounds - Rectal Exam Rectal Exam: NORMAL INSPECTION - Exam External exam: NORMAL EXTERNAL EXAM Speculum exam: NORMAL SPECULUM EXAM - Extremities Exam Extremities Exam: Normal Capillary Refill, Normal Inspection - Neurological Exam Neurological Exam: Alert, Awake Neuro motor strength exam: Left Upper Extremity: 3, Right Upper Extremity: 3, Left Lower Extremity: 3, Right Lower Extremity: 2/1 - Psychiatric Exam Psychiatric exam: Normal Affect Assessment and Plan (1) Acute kidney failure Status: Acute (2) Acute on chronic renal failure Status: Acute (3) Anemia Status: Acute (4) Bilateral swelling of feet Status: Acute (5) Bleeding Status: Acute (6) Blister of foot Status: Acute (7) Burning sensation Status: Acute (8) Carotid artery stenosis Status: Acute - Assessment and Plan (Free Text) Assessment: plan for PT, OT AND REC DISCUSSED DC PLANNING MONIOTR STUMP COVERING FOR DR GOLD
[2017-04-08] MEDS: Pravastatin Sodium 40 MG TAB PO SCH (21:53)
[2017-04-08] MEDS: oxyCODONE 20 mg ER Tab (oxyCONTIN) PO SCH (21:54)
[2017-04-09] MEDS: Insulin Regular 100 units/ml SC SCH ×4 (07:25→21:50)
[2017-04-09] MEDS: oxyCODONE 20 mg ER Tab (oxyCONTIN) PO SCH ×2 (08:11→21:49)
[2017-04-09] MEDS: Lactobacillus Acidophilus 500 MU Cap PO SCH ×2 (08:11→16:37)
[2017-04-09] MEDS: Vitamins A & D Oint UD Foilpak TOP SCH ×2 (08:15→16:45)
[2017-04-09] MEDS: Saccharomyces Boulardi 250 mg Cap PO SCH ×2 (08:15→16:46)
[2017-04-09] MEDS: Mycolog II OINT TOP SCH (08:15)
[2017-04-09] MEDS: Pantoprazole 40 mg EC Tab PO SCH (08:15)
[2017-04-09] MEDS: Insulin Lispro Mix 75/25 100 units/ml (HumaLog) 10ml SC SCH ×2 (08:16→16:39)
[2017-04-09] MEDS: GlipiZIDE 5 mg SR Tab PO SCH ×2 (11:20→16:39)
[2017-04-09] MEDS: Pravastatin Sodium 40 MG TAB PO SCH (21:49)
[2017-04-10] MEDS: Insulin Regular 100 units/ml SC SCH ×4 (07:01→21:37)
[2017-04-10] MEDS: Saccharomyces Boulardi 250 mg Cap PO SCH ×2 (08:40→17:05)
[2017-04-10] MEDS: GlipiZIDE 5 mg SR Tab PO SCH ×2 (08:40→17:05)
[2017-04-10] MEDS: Vitamins A & D Oint UD Foilpak TOP SCH ×2 (08:41→17:08)
[2017-04-10] MEDS: Pantoprazole 40 mg EC Tab PO SCH (08:41)
[2017-04-10] MEDS: Insulin Lispro Mix 75/25 100 units/ml (HumaLog) 10ml SC SCH ×2 (08:41→17:05)
[2017-04-10] MEDS: Lactobacillus Acidophilus 500 MU Cap PO SCH ×2 (08:43→17:10)
[2017-04-10] MEDS: oxyCODONE 20 mg ER Tab (oxyCONTIN) PO SCH (08:43)
--- NOTE | 2017-04-10 09:01 | CP.PCM.PN ---
Subjective - Date & Time of Evaluation Date of Evaluation: 04/10/17 Time of Evaluation: 08:45 - Subjective Subjective: Patient s/p right JUAN is referred to pain management. Her current regimen includes [id number] q12h, Dilaudid 2mg PRN, and Lyrica 100mg q8h. She still complains of phantom sensation and pain, as well as surgical pain at the stump. Lately she's noticed some pain in the left foot, podiatry is aware. She's scheduled to be discharged home on Thursday. She states that she prefers her previous home medications of MS Contin and Percocet compared to Oxycontin and Dilaudid. Objective - Vital Signs/Intake and Output Vital Signs (last 24 hours): Temp Pulse Resp BP Pulse Ox 97.9 F 67 20 127/51 L 99 04/09/17 22:00 04/09/17 22:00 04/09/17 22:00 04/09/17 22:00 04/09/17 22:00 - Medications Medications: Current Medications Acetaminophen (Tylenol 325mg Tab) 650 mg PO Q4 PRN PRN Reason: Pain, Mild (1-3) Ferrous Sulfate (Feosol) 325 mg PO TID [facility] Last Admin: 04/10/17 08:40 Dose: 325 mg Glipizide (Glucotrol Xl) 5 mg PO BID [facility] Last Admin: 04/10/17 08:40 Dose: 5 mg Heparin Sodium (Porcine) (Heparin) 5,000 units SC Q12 [facility] PRN Reason: Protocol Last Admin: 04/10/17 08:40 Dose: 5,000 units Hydromorphone HCl (Dilaudid) 2 mg PO Q4 PRN PRN Reason: Pain scale (4-10) Insulin Human Regular (Humulin R) 0 units SC ACHS [facility] Last Admin: 04/10/17 07:01 Dose: 9 units Insulin Lispro Protam/Lispro Human (Humalog Mix 75/25) 20 units SC BID [facility] Last Admin: 04/10/17 08:41 Dose: 20 units Lactobacillus Acidophilus (Bacid Acidophilus) 1 cap PO BID [facility] Last Admin: 04/10/17 08:43 Dose: 1 cap Ondansetron HCl (Zofran Tab) 4 mg PO Q4 PRN PRN Reason: Nausea/Vomiting Oxycodone HCl (Oxycontin Extended Release Tab) 20 mg PO Q12 [facility] Last Admin: 04/10/17 08:43 Dose: 20 mg Pantoprazole Sodium (Protonix Ec Tab) 40 mg PO DAILY [facility] Last Admin: 04/10/17 08:41 Dose: 40 mg Pravastatin Sodium (Pravachol) 40 mg PO HS [facility] Last Admin: 04/09/17 21:49 Dose: 40 mg Pregabalin (Lyrica) 100 mg PO TID [facility] Last Admin: 04/09/17 16:37 Dose: 100 mg Saccharomyces Boulardii (Florastor) 250 mg PO BID [facility] Last Admin: 04/10/17 08:40 Dose: 250 mg Sitagliptin Phosphate (Januvia) 100 mg PO DAILY [facility] Last Admin: 04/10/17 08:40 Dose: 100 mg Vitamin A (Vitamin A & D Oint Ud Foilpak) 1 ea TOP BID [facility] Last Admin: 04/10/17 08:41 Dose: 1 ea - Labs Labs: 04/02/17 11:00 04/02/17 11:00 - Extremities Exam Additional comments: s/p right BKA, dressing intact. Assessment and Plan - Assessment and Plan (Free Text) Assessment: 56 yo w/ chronic pain, peripheral neuropathy, now phantom pain/sensation s/p right BKA. - d/c Oxycontin and Dilaudid - start MS Contin 30mg q12h and Oxycodone 10mg - continue Lyrica, add Cymbalta to regimen - prescriptions left in chart for Thursday discharge
--- NOTE | 2017-04-10 15:40 | PN ---
SUBJECTIVE: The patient is doing fine, sitting in the wheelchair. PHYSICAL EXAMINATION VITAL SIGNS: Stable. NECK: Supple. CHEST: Symmetrical. HEART: S1, S2. ABDOMEN: Benign. EXTREMITIES: No clubbing, cyanosis or edema. Right below-knee amputation. The patient with Srinivasa wrapping done on the right stump. ASSESSMENT: Hypertension, diabetes, congestive heart failure. PLAN: To continue with physical and occupational therapy. Program monitor the stump incisional area. Dr. Rodgers to return on Thursday to further follow up with the patient. To continue with the present therapy program and monitor the patient's skin, an area that is still healing. mAaury Whiting MD
[2017-04-10] MEDS: oxyCODONE 5 mg Immediate Release Tab PO PRN (17:14)
[2017-04-10 19:52] VITALS: RESP 20
[2017-04-10] MEDS: Pravastatin Sodium 40 MG TAB PO SCH (21:22)
[2017-04-10] MEDS: Morphine 30 mg SR Tab PO SCH (21:23)
[2017-04-11] MEDS: Insulin Regular 100 units/ml SC SCH ×4 (07:26→21:00)
[2017-04-11] MEDS: Lactobacillus Acidophilus 500 MU Cap PO SCH ×2 (08:45→17:31)
[2017-04-11] MEDS: Pantoprazole 40 mg EC Tab PO SCH (08:46)
[2017-04-11] MEDS: Saccharomyces Boulardi 250 mg Cap PO SCH ×2 (08:46→17:33)
[2017-04-11] MEDS: Vitamins A & D Oint UD Foilpak TOP SCH ×2 (08:47→17:31)
[2017-04-11] MEDS: Morphine 30 mg SR Tab PO SCH ×2 (08:53→20:34)
[2017-04-11] MEDS: GlipiZIDE 5 mg SR Tab PO SCH ×2 (08:57→17:33)
[2017-04-11] MEDS: Insulin Lispro Mix 75/25 100 units/ml (HumaLog) 10ml SC SCH ×2 (09:02→17:33)
--- NOTE | 2017-04-11 10:28 | CP.PCM.PN ---
Subjective - Date & Time of Evaluation Date of Evaluation: 04/11/17 Time of Evaluation: 10:28 - Subjective Subjective: Patient remains stable Has less pain Accuchecks are still elevated. Objective - Vital Signs/Intake and Output Vital Signs (last 24 hours): Temp Pulse Resp BP Pulse Ox 97.8 F 88 20 126/64 98 04/11/17 08:05 04/11/17 08:05 04/11/17 08:05 04/11/17 08:05 04/11/17 08:05 - Medications Medications: Current Medications Acetaminophen (Tylenol 325mg Tab) 650 mg PO Q4 PRN PRN Reason: Pain, Mild (1-3) Duloxetine HCl (Cymbalta) 30 mg PO HS [facility] Last Admin: 04/10/17 21:22 Dose: 30 mg Ferrous Sulfate (Feosol) 325 mg PO TID [facility] Last Admin: 04/11/17 08:46 Dose: 325 mg Glipizide (Glucotrol Xl) 5 mg PO BID [facility] Last Admin: 04/11/17 08:57 Dose: 5 mg Heparin Sodium (Porcine) (Heparin) 5,000 units SC Q12 [facility] PRN Reason: Protocol Last Admin: 04/11/17 08:57 Dose: 5,000 units Insulin Human Regular (Humulin R) 0 units SC ACHS [facility] Last Admin: 04/11/17 07:26 Dose: 3 units Insulin Lispro Protam/Lispro Human (Humalog Mix 75/25) 20 units SC BID [facility] Last Admin: 04/11/17 09:02 Dose: 20 units Lactobacillus Acidophilus (Bacid Acidophilus) 1 cap PO BID [facility] Last Admin: 04/11/17 08:45 Dose: 1 cap Morphine Sulfate (Morphine Extended Release Tab) 30 mg PO Q12 [facility] Last Admin: 04/11/17 08:53 Dose: 30 mg Ondansetron HCl (Zofran Tab) 4 mg PO Q4 PRN PRN Reason: Nausea/Vomiting Oxycodone HCl (Oxycodone Immediate Release Tab) 10 mg PO Q6 PRN PRN Reason: Pain, severe (8-10) Last Admin: 04/10/17 17:14 Dose: 10 mg Pantoprazole Sodium (Protonix Ec Tab) 40 mg PO DAILY [facility] Last Admin: 04/11/17 08:46 Dose: 40 mg Pravastatin Sodium (Pravachol) 40 mg PO HS [facility] Last Admin: 04/10/17 21:22 Dose: 40 mg Pregabalin (Lyrica) 100 mg PO TID [facility] Last Admin: 04/11/17 08:54 Dose: 100 mg Saccharomyces Boulardii (Florastor) 250 mg PO BID [facility] Last Admin: 04/11/17 08:46 Dose: 250 mg Sitagliptin Phosphate (Januvia) 100 mg PO DAILY [facility] Last Admin: 04/11/17 08:47 Dose: 100 mg Vitamin A (Vitamin A & D Oint Ud Foilpak) 1 ea TOP BID [facility] Last Admin: 04/11/17 08:47 Dose: 1 ea - Labs Labs: 04/02/17 11:00 04/02/17 11:00
--- NOTE | 2017-04-11 10:29 | CP.PCM.PN ---
Subjective - Date & Time of Evaluation Date of Evaluation: 04/10/17 Time of Evaluation: 10:00 - Subjective Subjective: Patient has less pain Seen by Pain mgt and meds were adjusted. Has no diarrhea Doing well with PT Has less phantom pain. Objective - Vital Signs/Intake and Output Vital Signs (last 24 hours): Temp Pulse Resp BP Pulse Ox 97.8 F 88 20 126/64 98 04/11/17 08:05 04/11/17 08:05 04/11/17 08:05 04/11/17 08:05 04/11/17 08:05 - Medications Medications: Current Medications Acetaminophen (Tylenol 325mg Tab) 650 mg PO Q4 PRN PRN Reason: Pain, Mild (1-3) Duloxetine HCl (Cymbalta) 30 mg PO HS [facility] Last Admin: 04/10/17 21:22 Dose: 30 mg Ferrous Sulfate (Feosol) 325 mg PO TID [facility] Last Admin: 04/11/17 08:46 Dose: 325 mg Glipizide (Glucotrol Xl) 5 mg PO BID [facility] Last Admin: 04/11/17 08:57 Dose: 5 mg Heparin Sodium (Porcine) (Heparin) 5,000 units SC Q12 [facility] PRN Reason: Protocol Last Admin: 04/11/17 08:57 Dose: 5,000 units Insulin Human Regular (Humulin R) 0 units SC ACHS [facility] Last Admin: 04/11/17 07:26 Dose: 3 units Insulin Lispro Protam/Lispro Human (Humalog Mix 75/25) 20 units SC BID [facility] Last Admin: 04/11/17 09:02 Dose: 20 units Lactobacillus Acidophilus (Bacid Acidophilus) 1 cap PO BID [facility] Last Admin: 04/11/17 08:45 Dose: 1 cap Morphine Sulfate (Morphine Extended Release Tab) 30 mg PO Q12 [facility] Last Admin: 04/11/17 08:53 Dose: 30 mg Ondansetron HCl (Zofran Tab) 4 mg PO Q4 PRN PRN Reason: Nausea/Vomiting Oxycodone HCl (Oxycodone Immediate Release Tab) 10 mg PO Q6 PRN PRN Reason: Pain, severe (8-10) Last Admin: 04/10/17 17:14 Dose: 10 mg Pantoprazole Sodium (Protonix Ec Tab) 40 mg PO DAILY [facility] Last Admin: 04/11/17 08:46 Dose: 40 mg Pravastatin Sodium (Pravachol) 40 mg PO HS [facility] Last Admin: 04/10/17 21:22 Dose: 40 mg Pregabalin (Lyrica) 100 mg PO TID [facility] Last Admin: 04/11/17 08:54 Dose: 100 mg Saccharomyces Boulardii (Florastor) 250 mg PO BID [facility] Last Admin: 04/11/17 08:46 Dose: 250 mg Sitagliptin Phosphate (Januvia) 100 mg PO DAILY [facility] Last Admin: 04/11/17 08:47 Dose: 100 mg Vitamin A (Vitamin A & D Oint Ud Foilpak) 1 ea TOP BID [facility] Last Admin: 04/11/17 08:47 Dose: 1 ea - Labs Labs: 04/02/17 11:00 04/02/17 11:00
--- NOTE | 2017-04-11 10:30 | CP.PCM.PN ---
Subjective - Date & Time of Evaluation Date of Evaluation: 04/09/17 Time of Evaluation: 10:35 - Subjective Subjective: Patient still has persistent phantom pain. Objective - Vital Signs/Intake and Output Vital Signs (last 24 hours): Temp Pulse Resp BP Pulse Ox 97.8 F 88 20 126/64 98 04/11/17 08:05 04/11/17 08:05 04/11/17 08:05 04/11/17 08:05 04/11/17 08:05 - Medications Medications: Current Medications Acetaminophen (Tylenol 325mg Tab) 650 mg PO Q4 PRN PRN Reason: Pain, Mild (1-3) Duloxetine HCl (Cymbalta) 30 mg PO HS [facility] Last Admin: 04/10/17 21:22 Dose: 30 mg Ferrous Sulfate (Feosol) 325 mg PO TID [facility] Last Admin: 04/11/17 08:46 Dose: 325 mg Glipizide (Glucotrol Xl) 5 mg PO BID [facility] Last Admin: 04/11/17 08:57 Dose: 5 mg Heparin Sodium (Porcine) (Heparin) 5,000 units SC Q12 [facility] PRN Reason: Protocol Last Admin: 04/11/17 08:57 Dose: 5,000 units Insulin Human Regular (Humulin R) 0 units SC ACHS [facility] Last Admin: 04/11/17 07:26 Dose: 3 units Insulin Lispro Protam/Lispro Human (Humalog Mix 75/25) 20 units SC BID [facility] Last Admin: 04/11/17 09:02 Dose: 20 units Lactobacillus Acidophilus (Bacid Acidophilus) 1 cap PO BID [facility] Last Admin: 04/11/17 08:45 Dose: 1 cap Morphine Sulfate (Morphine Extended Release Tab) 30 mg PO Q12 [facility] Last Admin: 04/11/17 08:53 Dose: 30 mg Ondansetron HCl (Zofran Tab) 4 mg PO Q4 PRN PRN Reason: Nausea/Vomiting Oxycodone HCl (Oxycodone Immediate Release Tab) 10 mg PO Q6 PRN PRN Reason: Pain, severe (8-10) Last Admin: 04/10/17 17:14 Dose: 10 mg Pantoprazole Sodium (Protonix Ec Tab) 40 mg PO DAILY [facility] Last Admin: 04/11/17 08:46 Dose: 40 mg Pravastatin Sodium (Pravachol) 40 mg PO HS [facility] Last Admin: 04/10/17 21:22 Dose: 40 mg Pregabalin (Lyrica) 100 mg PO TID [facility] Last Admin: 04/11/17 08:54 Dose: 100 mg Saccharomyces Boulardii (Florastor) 250 mg PO BID [facility] Last Admin: 04/11/17 08:46 Dose: 250 mg Sitagliptin Phosphate (Januvia) 100 mg PO DAILY [facility] Last Admin: 04/11/17 08:47 Dose: 100 mg Vitamin A (Vitamin A & D Oint Ud Foilpak) 1 ea TOP BID [facility] Last Admin: 04/11/17 08:47 Dose: 1 ea - Labs Labs: 04/02/17 11:00 04/02/17 11:00
[2017-04-11] MEDS ORDERED: oxyCODONE 5 mg Immediate Release Tab PO PRN (15:02)
[2017-04-11] MEDS: Pravastatin Sodium 40 MG TAB PO SCH (21:03)
[2017-04-12] MEDS: oxyCODONE 5 mg Immediate Release Tab PO PRN (02:47)
[2017-04-12] MEDS: Insulin Regular 100 units/ml SC SCH ×4 (06:59→21:25)
[2017-04-12] MEDS: Lactobacillus Acidophilus 500 MU Cap PO SCH (08:27)
[2017-04-12] MEDS: Morphine 30 mg SR Tab PO SCH ×2 (08:27→20:24)
[2017-04-12] MEDS: Pantoprazole 40 mg EC Tab PO SCH (08:28)
[2017-04-12] MEDS: GlipiZIDE 5 mg SR Tab PO SCH ×2 (08:28→17:18)
[2017-04-12] MEDS: Saccharomyces Boulardi 250 mg Cap PO SCH (08:28)
[2017-04-12] MEDS: Vitamins A & D Oint UD Foilpak TOP SCH ×2 (08:29→17:24)
[2017-04-12] MEDS: Insulin Lispro Mix 75/25 100 units/ml (HumaLog) 10ml SC SCH ×2 (08:29→17:18)
--- NOTE | 2017-04-12 12:45 | CP.PCM.PN ---
Subjective - Date & Time of Evaluation Date of Evaluation: 04/12/17 Time of Evaluation: 12:45 - Subjective Subjective: Patient has less pain Has no loose stools Has no chest pain or SOB. Objective - Vital Signs/Intake and Output Vital Signs (last 24 hours): Temp Pulse Resp BP Pulse Ox 98.3 F 76 20 122/58 L 100 04/12/17 08:40 04/12/17 08:40 04/12/17 08:40 04/12/17 08:40 04/12/17 08:40 - Medications Medications: Current Medications Acetaminophen (Tylenol 325mg Tab) 650 mg PO Q4 PRN PRN Reason: Pain, Mild (1-3) Duloxetine HCl (Cymbalta) 30 mg PO HS [facility] Last Admin: 04/11/17 21:03 Dose: 30 mg Ferrous Sulfate (Feosol) 325 mg PO TID [facility] Last Admin: 04/12/17 12:13 Dose: 325 mg Glipizide (Glucotrol Xl) 5 mg PO BID [facility] Last Admin: 04/12/17 08:28 Dose: 5 mg Heparin Sodium (Porcine) (Heparin) 5,000 units SC Q12 [facility] PRN Reason: Protocol Last Admin: 04/12/17 08:29 Dose: 5,000 units Insulin Human Regular (Humulin R) 0 units SC ACHS [facility] Last Admin: 04/12/17 12:13 Dose: 9 units Insulin Lispro Protam/Lispro Human (Humalog Mix 75/25) 20 units SC BID [facility] Last Admin: 04/12/17 08:29 Dose: 20 units Morphine Sulfate (Morphine Extended Release Tab) 30 mg PO Q12 [facility] Last Admin: 04/12/17 08:27 Dose: 30 mg Oxycodone HCl (Oxycodone Immediate Release Tab) 10 mg PO Q6 PRN PRN Reason: Pain, severe (8-10) Last Admin: 04/12/17 02:47 Dose: 10 mg Oxycodone HCl (Oxycodone Immediate Release Tab) 5 mg PO Q6 PRN PRN Reason: for pain scale 4-7 Last Admin: 04/12/17 12:18 Dose: 5 mg Pantoprazole Sodium (Protonix Ec Tab) 40 mg PO DAILY [facility] Last Admin: 04/12/17 08:28 Dose: 40 mg Pravastatin Sodium (Pravachol) 40 mg PO [facility] Last Admin: 04/11/17 21:03 Dose: 40 mg Pregabalin (Lyrica) 100 mg PO TID [facility] Last Admin: 04/12/17 12:12 Dose: 100 mg Sitagliptin Phosphate (Januvia) 100 mg PO DAILY [facility] Last Admin: 04/12/17 08:28 Dose: 100 mg Vitamin A (Vitamin A & D Oint Ud Foilpak) 1 ea TOP BID [facility] Last Admin: 04/12/17 08:29 Dose: 1 ea - Labs Labs: 04/02/17 11:00 04/02/17 11:00
[2017-04-12] MEDS: Pravastatin Sodium 40 MG TAB PO SCH (21:25)
[2017-04-13] MEDS: oxyCODONE 5 mg Immediate Release Tab PO PRN ×2 (05:10→12:28)
[2017-04-13] MEDS: Insulin Regular 100 units/ml SC SCH ×2 (06:57→11:31)
[2017-04-13 07:33] VITALS: BP 136/52; PULSE 85; O2SAT 95
[2017-04-13] MEDS: Morphine 30 mg SR Tab PO SCH (08:14)
[2017-04-13] MEDS: GlipiZIDE 5 mg SR Tab PO SCH (08:15)
[2017-04-13] MEDS: Insulin Lispro Mix 75/25 100 units/ml (HumaLog) 10ml SC SCH (08:16)
[2017-04-13] MEDS: Vitamins A & D Oint UD Foilpak TOP SCH (08:16)
[2017-04-13] MEDS: Pantoprazole 40 mg EC Tab PO SCH (08:16)
[2017-04-13] MEDS ORDERED: Influenza Vaccine 18yr & older 0.5 ML/45 MCG SYR IM ONE (10:01)
--- NOTE | 2017-04-13 10:07 | CP.PCM.DIS ---
Provider - Provider Date of Admission: 03/27/17 17:15 Attending physician: Pavel Willoughby MD Hospital Course - Lab Results Lab Results: Most Recent Lab Values WBC 8.7 K/uL (4.8-10.8) 04/02/17 11:00 RBC 3.03 Mil/uL (3.80-5.20) L 04/02/17 11:00 Hgb 8.6 g/dL (12.0-16.0) L 04/02/17 11:00 Hct 26.6 % (34.0-47.0) L 04/02/17 11:00 MCV 88.0 fl (81.0-99.0) 04/02/17 11:00 MCH 28.3 pg (27.0-31.0) 04/02/17 11:00 MCHC 32.2 g/dL (33.0-37.0) L 04/02/17 11:00 RDW 17.3 % (11.5-14.5) H 04/02/17 11:00 Plt Count 255 K/uL (130-400) 04/02/17 11:00 MPV 9.1 fl (7.2-11.7) 04/02/17 11:00 Neut % (Auto) 66.2 % (50.0-75.0) 04/02/17 11:00 Lymph % (Auto) 19.0 % (20.0-40.0) L 04/02/17 11:00 Wake % (Auto) 9.5 % (0.0-10.0) 04/02/17 11:00 Eos % (Auto) 4.7 % (0.0-4.0) H 04/02/17 11:00 Baso % (Auto) 0.6 % (0.0-2.0) 04/02/17 11:00 Neut # 5.7 K/uL (1.8-7.0) 04/02/17 11:00 Lymph # 1.6 K/uL (1.0-4.3) 04/02/17 11:00 Wake # 0.8 K/uL (0.0-0.8) 04/02/17 11:00 Eos # 0.4 K/uL (0.0-0.7) 04/02/17 11:00 Baso # 0.1 K/uL (0.0-0.2) 04/02/17 11:00 Sodium 135 mmol/l (132-148) 04/02/17 11:00 Potassium 4.2 MMOL/L (3.6-5.0) 04/02/17 11:00 Chloride 103 mmol/L (98-107) 04/02/17 11:00 Carbon Dioxide 24 mmol/L (22-30) 04/02/17 11:00 Anion Gap 13 (10-20) 04/02/17 11:00 BUN 12 mg/dl (7-17) 04/02/17 11:00 Creatinine 0.7 mg/dL (0.7-1.2) 04/02/17 11:00 Est GFR ( Amer) > 60 04/02/17 11:00 Est GFR (Non-Af Amer) > 60 04/02/17 11:00 POC Glucose (mg/dL) 183 mg/dL (65-110) H 04/13/17 05:03 Random Glucose 210 mg/dL (65-105) H 04/02/17 11:00 Calcium 8.3 mg/dL (8.4-10.2) L 04/02/17 11:00 Total Bilirubin 0.3 mg/dl (0.2-1.3) 04/02/17 11:00 AST 25 U/L (14-36) 04/02/17 11:00 ALT 20 U/L (9-52) 04/02/17 11:00 Alkaline Phosphatase 193 U/L (38-126) H D 04/02/17 11:00 Total Protein 6.6 G/DL (6.3-8.2) 04/02/17 11:00 Albumin 3.0 g/dL (3.5-5.0) L 04/02/17 11:00 Globulin 3.6 gm/dL (2.2-3.9) 04/02/17 11:00 Albumin/Globulin Ratio 0.8 (1.0-2.1) L 04/02/17 11:00 C. 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 Has a hx of uncontrolled DM 2. Discharge Exam - Head Exam Head Exam: ATRAUMATIC, NORMAL INSPECTION, NORMOCEPHALIC Discharge Plan - Follow Up Plan Condition: GOOD Disposition: HOME/ ROUTINE Instructions: Iron Supplements (By mouth), Oxycodone/Acetaminophen (By mouth), Pravastatin (By mouth), Glimepiride (By mouth), Pantoprazole (By mouth), Morphine, Slow Release (By mouth), Insulin NPH/Regular (By injection), Duloxetine (By mouth), Pregabalin (By mouth), Sitagliptin (By mouth), Below the Knee Amputation (DC), Clostridium Difficile Infection (DC) Additional Instructions: PLEASE FOLLOW WITH VASCULAR SURGEON DR. GROVER Wound care Cleanse incision line with Normal saline, pat dry apply xeroform, wrap it with kerlix and heather wrap every 3 days.
[2017-04-13 11:43] VITALS: TEMP 98.6
--- NOTE | 2017-04-13 16:02 | CP.PCM.CON ---
History of Present Illness - History of Present Illness History of Present Illness: Patient is a 56 year old female with PMH of DM type 2, Asthma, HTN, Depression and recent BKA of right leg is consulted for enlongated Left painful nails. Patient is seen sitting comfortably at bedside, in NAD, and AA03. States that her nails get caught in her sock when she tries to wear it on. She rates the pain 1/10 and worse with shoegear. Patient denies n/v/sob/cp/chills or f. Denies any other pedal complaints at this time. Past Patient History - Infectious Disease Hx of Infectious Diseases: None - Past Medical History & Family History Past Medical History?: Yes - Past Social History Smoking Status: Heavy Smoker > 10 Cigarettes Daily Drugs: Denies Home Situation {Lives}: With Family (1 entry step) - CARDIAC Hx Congestive Heart Failure: Yes Hx Hypercholesterolemia: Yes Hx Hypertension: Yes - PULMONARY Hx Asthma: Yes - NEUROLOGICAL Hx Neurological Disorder: No - HEENT Other/Comment: uses eyeglasses - RENAL Hx Chronic Kidney Disease: No - ENDOCRINE/METABOLIC Hx Diabetes Mellitus Type 2: Yes - HEMATOLOGICAL/ONCOLOGICAL Hx AIDS: No Hx Human Immunodeficiency Virus (HIV): No - INTEGUMENTARY Hx Dermatological Problems: Yes - MUSCULOSKELETAL/RHEUMATOLOGICAL Hx Musculoskeletal Disorders: Yes Hx Falls: No - GASTROINTESTINAL Hx Gastrointestinal Disorders: No - GENITOURINARY/GYNECOLOGICAL Hx Genitourinary Disorders: No - PSYCHIATRIC Hx Anxiety: Yes Hx Depression: Yes Hx Substance Use: No - SURGICAL HISTORY Hx Surgeries: Yes Hx Appendectomy: Yes Hx Carotid Endarterectomy: Yes Hx Cholecystectomy: Yes Other/Comment: I@D rt. foot - ANESTHESIA Hx Anesthesia: Yes Hx Anesthesia Reactions: No Hx Malignant Hyperthermia: No Meds Home Medications: Home Medication List Medication Instructions Recorded Confirmed Type DULoxetine [Cymbalta] 30 mg PO HS #30 ecc 04/13/17 Rx Ferrous Sulfate [Feosol] 325 mg PO BID #60 tab 04/13/17 Rx GlipiZIDE SR [Glucotrol XL] 5 mg PO BID #60 tab 04/13/17 Rx Insulin Detemir [Levemir] 10 unit SC HS #1 unit 04/13/17 Rx Insulin Lispro Mix 75/25 [HumaLog 20 units SC Q12 #3 vial 04/13/17 Rx MIX 75/25] Morphine [Morphine Extended 30 mg PO Q12 #60 tabsr 04/13/17 Rx Release Tab] Oxycodone HCl/Acetaminophen 1 each PO Q6 PRN #120 tablet 04/13/17 Rx [Endocet 10-325 mg Tablet] Pantoprazole [Protonix EC Tab] 40 mg PO DAILY #30 ect 04/13/17 Rx Pravastatin Sodium [Pravachol] 40 mg PO HS #30 tab 04/13/17 Rx Pregabalin [Lyrica] 100 mg PO TID #90 cap 04/13/17 Rx SITagliptin [Januvia] 100 mg PO DAILY #1 tab 04/13/17 Rx Allergies/Adverse Reactions: Allergies Allergy/AdvReac Type Severity Reaction Status Date / Time vancomycin AdvReac ITCHING Verified 05/22/16 13:09 - Medications Medications: Current Medications Acetaminophen (Tylenol 325mg Tab) 650 mg PO Q4 PRN PRN Reason: Pain, Mild (1-3) Duloxetine HCl (Cymbalta) 30 mg PO HS [facility] Last Admin: 04/12/17 21:25 Dose: 30 mg Ferrous Sulfate (Feosol) 325 mg PO TID [facility] Last Admin: 04/13/17 12:25 Dose: 325 mg Glipizide (Glucotrol Xl) 5 mg PO BID [facility] Last Admin: 04/13/17 08:15 Dose: 5 mg Heparin Sodium (Porcine) (Heparin) 5,000 units SC Q12 [facility] PRN Reason: Protocol Last Admin: 04/13/17 08:17 Dose: 5,000 units Insulin Human Regular (Humulin R) 0 units SC ACHS [facility] Last Admin: 04/13/17 11:31 Dose: 9 units Insulin Lispro Protam/Lispro Human (Humalog Mix 75/25) 20 units SC BID [facility] Last Admin: 04/13/17 08:16 Dose: 20 units Morphine Sulfate (Morphine Extended Release Tab) 30 mg PO Q12 [facility] Last Admin: 04/13/17 08:14 Dose: 30 mg Oxycodone HCl (Oxycodone Immediate Release Tab) 10 mg PO Q6 PRN PRN Reason: Pain, severe (8-10) Last Admin: 04/13/17 12:28 Dose: 10 mg Oxycodone HCl (Oxycodone Immediate Release Tab) 5 mg PO Q6 PRN PRN Reason: for pain scale 4-7 Last Admin: 04/12/17 12:18 Dose: 5 mg Pantoprazole Sodium (Protonix Ec Tab) 40 mg PO DAILY [facility] Last Admin: 04/13/17 08:16 Dose: 40 mg Pravastatin Sodium (Pravachol) 40 mg PO HS [facility] Last Admin: 04/12/17 21:25 Dose: 40 mg Pregabalin (Lyrica) 100 mg PO TID [facility] Last Admin: 04/13/17 12:25 Dose: 100 mg Sitagliptin Phosphate (Januvia) 100 mg PO DAILY [facility] Last Admin: 04/13/17 08:15 Dose: 100 mg Vitamin A (Vitamin A & D Oint Ud Foilpak) 1 ea TOP BID [facility] Last Admin: 04/13/17 08:16 Dose: 1 ea Physical Exam - Constitutional Appears: Well, Non-toxic, No Acute Distress - Extremities Exam Additional comments: Left focused exam: Vasc: DP and PT 1/4 bilaterally, CFT < 3 seconds, temperature cool to cool, no edema noted Ortho: MM is 5/5 in all four compartments: dorsiflexion, plantarflexion, inversion and eversion. Mild pain elicited with palpation of the plantar plate x5 Neuro: protective sensation diminished Derm: elongated, hyperkeratotic nails to digits 3, 4, and 5. Normal length and thickness to nails 1 and 2. No open lesions noted to left foot. No ID maceration. - Neurological Exam Neurological exam: Alert, Oriented x3 - Psychiatric Exam Psychiatric exam: Normal Affect, Normal Mood Results - Vital Signs Recent Vital Signs: Last Vital Signs Temp 98.6 F 04/13/17 11:26 Pulse 85 04/13/17 07:32 Resp 20 04/13/17 07:32 BP 136/52 L 04/13/17 07:32 Pulse Ox 95 04/13/17 07:32 - Labs Result Diagrams: 04/02/17 11:00 04/02/17 11:00 Labs: Laboratory Results - last 24 hr 04/12/17 04/12/17 04/13/17 16:23 21:23 05:03 POC Glucose (mg/dL) 151 H 109 183 H 04/13/17 04/13/17 06:55 10:59 POC Glucose (mg/dL) 226 H 267 H Assessment & Plan - Assessment and Plan (Free Text) Assessment: Patient is a 56 year old female with PMH of DM type 2, Asthma, HTN, Depression, and recent right BKA present with enlongated, tender toenails L foot Plan: Patient examined and evaluated. All questions/concerns addressed. Charts, labs, vitals reviewed. Discussed plan in detail with attending Dr. Fisher. Enlongated and hypertrophic nails x3 was debrided to normal thickness and length using a nail nipper to digits 3,4, and 5 of L foot. No complications. Patient tolerated the procedure well. Thank you for the consult Re-consult as needed. - Date & Time Date: 04/13/17 Time: 14:00
== END 2017-04-13 15:20 | disposition home or self-care (01) | DRG 949 ==
PROVIDERS: ADMIT Family Medicine; ATTEND Family Medicine
PROC: F07Z9FZ Gait Training/Functional Ambulation Treatment using Assistive, Adaptive, Supportive or Protective Equipment (ICD-10-PCS; principal; 2017-03-27)
PROC: F08Z4FZ Home Management Treatment using Assistive, Adaptive, Supportive or Protective Equipment (ICD-10-PCS; 2017-03-27)
PROC: F07L6FZ Therapeutic Exercise Treatment of Musculoskeletal System - Lower Back / Lower Extremity using Assistive, Adaptive, Supportive or Protective Equipment (ICD-10-PCS; 2017-03-28)
PROC: 0HBRXZZ Excision of Toe Nail, External Approach (ICD-10-PCS; 2017-04-13)
PROC: 0HBRXZZ Excision of Toe Nail, External Approach (ICD-10-PCS; 2017-04-13)
PROC: 0HBRXZZ Excision of Toe Nail, External Approach (ICD-10-PCS; 2017-04-13)
PROC: 3E0234Z Introduction of Serum, Toxoid and Vaccine into Muscle, Percutaneous Approach (ICD-10-PCS; 2017-04-13)
DX: Z48.812 Encounter for surgical aftercare following surgery on the circulatory system (principal); Z47.81 Encounter for orthopedic aftercare following surgical amputation; L03.115 Cellulitis of right lower limb; E11.42 Type 2 diabetes mellitus with diabetic polyneuropathy; E11.51 Type 2 diabetes mellitus with diabetic peripheral angiopathy without gangrene; Z89.511 Acquired absence of right leg below knee; G54.6 Phantom limb syndrome with pain; L60.2 Onychogryphosis; G89.29 Other chronic pain; K59.00 Constipation, unspecified; E78.00 Pure hypercholesterolemia, unspecified; J45.909 Unspecified asthma, uncomplicated; I10 Essential (primary) hypertension; D64.9 Anemia, unspecified; E66.9 Obesity, unspecified; Z68.34 Body mass index [BMI] 34.0-34.9, adult; F17.210 Nicotine dependence, cigarettes, uncomplicated; Z23 Encounter for immunization; Z79.84 Long term (current) use of oral hypoglycemic drugs; Z88.1 Allergy status to other antibiotic agents

== ENCOUNTER 2017-04-29 12:15 | Inpatient (IN) | payer MEDICARE, OTHER ==
[2017-04-29 12:16] VITALS: BMI 38.7
[2017-04-29 12:37] LABS: BASO # 0.1 K/uL (0.0-0.2); BASO % 0.7 % (0.0-2.0); EOS # 0.7 K/uL (0.0-0.7); EOS % 6.9 % (0.0-4.0); LYMPH # 1.7 K/uL (1.0-4.3); LYMPH % 17.3 % (20.0-40.0); MEAN CELL VOLUME 92.8 fl (81.0-99.0); MEAN CORPUSCULAR HEMOGLOBIN 29.9 pg (27.0-31.0); MEAN CORPUSCULAR HGB CONC 32.2 g/dL (33.0-37.0); MEAN PLATELET VOLUME 11.6 fl (7.2-11.7); MONO # 0.6 K/uL (0.0-0.8); MONO % 6.3 % (0.0-10.0); NEUT # 6.6 K/uL (1.8-7.0); NEUT % 68.8 % (50.0-75.0); NRBC % 0.1 % (0.0-0.0); RED CELL DISTRIBUTION WIDTH 18.3 % (11.5-14.5); WHITE BLOOD COUNT 9.6 K/uL (4.8-10.8)
--- NOTE | 2017-04-29 12:46 | CT ---
PROCEDURE: CT HEAD WITHOUT CONTRAST. HISTORY: code stroke. Seizure, right-sided we. COMPARISON: 01/06/2017 all TECHNIQUE: Axial computed tomography images were obtained through the head/brain without intravenous contrast. Coronal and sagittal reconstructed images. Radiation dose: Total exam DLP = 868.64 mGy-cm. This CT exam was performed using one or more of the following dose reduction techniques: Automated exposure control, adjustment of the mA and/or kV according to patient size, and/or use of iterative reconstruction technique. FINDINGS: HEMORRHAGE: No intracranial hemorrhage. BRAIN: No mass effect or edema. No atrophy or chronic microvascular ischemic changes. VENTRICLES: Unremarkable. No hydrocephalus. CALVARIUM: Unremarkable. PARANASAL SINUSES: Unremarkable as visualized. No significant inflammatory changes. MASTOID AIR CELLS: Unremarkable as visualized. No inflammatory changes. OTHER FINDINGS: None. IMPRESSION: No acute intracranial abnormalities. No significant findings to account for the clinical presentation. No significant interval change compared to the prior examination(s). Code stroke protocol: Study completed 12:32 Radiologist notified 12:39 Results conveyed verbally at 12:41. Findings discussed with Dr. Sinha in the emergency department. Interpretation finalized and available for review 12:44
[2017-04-29 12:56] LABS: PARTIAL THROMBOPLASTIN TIME 38.9 Seconds (25.6-37.1)
[2017-04-29] MEDS ORDERED: levETIRAcetam 500 MG in Sodium Chloride 0.9% 100 ML IVPB ONE (13:07)
[2017-04-29 13:08] LABS: ALKALINE PHOSPHATASE 383 U/L (38-126); ALT/SGPT 50 U/L (9-52); AST/SGOT 59 U/L (14-36); BILIRUBIN,TOTAL 0.6 mg/dl (0.2-1.3); BLOOD UREA NITROGEN 14 mg/dl (7-17); CALCIUM 8.9 mg/dL (8.4-10.2); CARBON DIOXIDE 23 mmol/L (22-30); CHLORIDE 102 mmol/L (98-107); GFR AFRICAN-AMERICAN > 60; GLUCOSE,RANDOM 359 mg/dL (65-105); POTASSIUM 3.7 MMOL/L (3.6-5.0); SODIUM 141 mmol/l (132-148); TOTAL PROTEIN 8.2 G/DL (6.3-8.2)
[2017-04-29 13:19] LABS: TROPONIN I 0.031 ng/mL (0.00-0.120)
[2017-04-29 13:25] LABS: RBC URINE 11 /hpf (0-3); URINE BACTERIA RARE (<OCC); URINE BILIRUBIN NEGATIVE (NEGATIVE); URINE BLOOD SMALL (NEGATIVE); URINE COLOR YELLOW (YELLOW); URINE GLUCOSE (UA) >=500 mg/dL (Normal); URINE KETONE NEGATIVE (NEGATIVE); URINE LEUKOCYTE ESTERASE NEG Leu/uL (Negative); URINE PROTEIN >=500 mg/dL (NEGATIVE); URINE UROBILINOGEN 0.2-1.0 mg/dL (0.2-1.0); WBC URINE 10 /hpf (0-5)
--- NOTE | 2017-04-29 13:44 | RAD ---
HISTORY: AMS COMPARISON: Portable chest 03/12/2017. FINDINGS: LUNGS: History volume appears diminished however there is no acute infiltrate identified bilaterally. PLEURA: No significant pleural effusion identified, no pneumothorax apparent. CARDIOVASCULAR: Normal. OSSEOUS STRUCTURES: No significant abnormalities. VISUALIZED UPPER ABDOMEN: Normal. OTHER FINDINGS: None. IMPRESSION: Suboptimal inspiration however there is no acute infiltrate appreciated bilaterally. No pleural effusion or pneumothorax is seen either with the cardiomediastinal silhouette stable.
--- NOTE | 2017-04-29 14:31 | CT ---
PROCEDURE: CT Angiography of the Brain. HISTORY: seizure, ?R weakness COMPARISON: None available. TECHNIQUE: CT angiography of the intracranial arteries was performed. Coronal and sagittal maximum intensity projection reformated images were generated. This CT exam was performed using one or more of the following dose reduction techniques: Automated exposure control, adjustment of the mA and/or kV according to patient size, and/or use of iterative reconstruction technique. FINDINGS: INTERNAL CEREBRAL ARTERIES: Artifacts from the skullbase combine with somewhat limited contrast opacification in the intra canalicular and cavernous segments is segments of the bilateral internal carotid arteries are somewhat limited evaluation. Atherosclerotic changes seen at the bilateral cavernous segments and moderate stenoses are present bilaterally. The supraclinoid segments or patent without significant stenosis bilaterally. ANTERIOR CEREBRAL ARTERIES: Unremarkable. A1 and A2 segments are widely patent. Smaller distal branches unremarkable, as visualized. MIDDLE CEREBRAL ARTERIES: Unremarkable. M1 and M2 segments are widely patent. Perisylvian branches grossly symmetric. POSTERIOR CIRCULATION: Basilar Artery: Unremarkable. Distal Vertebral Arteries: Unremarkable. Posterior Cerebral Arteries: Unremarkable. Posterior Inferior Cerebellar Arteries: Not clearly identified bilaterally. NECK CTA RESULTS: Common carotid arteries: The bilateral common carotid appear widely patent from their origins to their bifurcations with no significant stenosis appreciated. No evidence to suggest common carotid artery dissection. Internal carotid arteries: No significant stenosis is appreciated throughout the right cervical internal carotid artery segment and there is no evidence of dissection bilaterally. A moderate stenosis of the proximal left internal carotid artery is appreciated potentially up to 50 percent. Mild bilateral carotid bulbar plaque is seen bilaterally. . Vertebral arteries: The bilateral vertebral artery normal in caliber from their origins to their union with the basilar artery. Vertebrobasilar system appears left dominant. No significant stenosis or definite pattern of dissection. Incidentally, the bilateral subclavian arteries are widely patent as well as the brachiocephalic artery. ANEURYSM/ VASCULAR MALFORMATIONS: None. OTHER FINDINGS: None. IMPRESSION: 1. Moderate bilateral cavernous internal carotid artery stenoses are identified bilaterally. However, there are no significant intracranial findings appreciated bilaterally. 2. Neck CTA component is remarkable for possible 40-50 percent stenosis of the proximal left ICA with a right ICA widely patent. Mild carotid bulbar plaques identified bilaterally. Bilateral common carotid arteries appear widely patent. .
[2017-04-29] MEDS ORDERED: Labetalol 5 mg/ml Inj 20ML IVP STA (14:57)
--- NOTE | 2017-04-29 15:24 | ED PDOC ---
HPI:STROKE - Time Time: 12:22 - Historian Historian: Family, EMS - Chief Complaint Chief Complaint: Weakness, Mental status change, other (seizure) - Onset Date: 04/29/17 Time: 11:30 (approx) - Timing Timing: Currently Symptomatic - Location Location: Mental Status - TPA Positive for Contraindication: Yes Reason tPA is not being Administered: seizure at onset, rapid improvement - Notes: Notes:: 56yo female arrives via EMS, history per EMS at onset reported vomiting at home , developed ? R weakness/ focal seizure and R gaze preference, EMS called, when arrived +AMS with gaze, then witnessed tonic clonic seizure, given versed 5mg IM with resolution of seizure. Vomited x2. Arrival to ED patient somnolent, ?R facial droop, responds to pain b/l symmetric. Code stroke called based on history from field. +recent hospitalization with R BKA. NIHSS Stroke Scale - Date/Time Evaluation Performed Date Performed: 04/29/17 Time Performed: 12:25 When Was NIHSS Performed: Baseline - How Severe is the Stroke Level of Consciousness: 2=Obtunded LOC to Questions: 2=Neither correct LOC to commands: 2=Neither correct Best Gaze: 0=Normal Visual: 2=Complete hemianopia Facial: 1=Minor asymmetry Motor Arm - Left: 4=No movement Motor Arm - Right: 4=No movement Motor Leg - Left: 4=No movement Motor Leg - Right: 4=No movement Limb Ataxia: 2=Present both Sensory: 1=Mild to moderate loss Best Language: 3=Mute Dysarthia: 2=Severe, near unintelligible or worse Extinction & Inattention (Neglect): 1=Partial neglect (mild fred-attention) Score: 34 rTPA Inclusion/Exclusion - Refusal of Treatment Patient Refused Treatment: No - Inclusion Criteria for Altepase Patient is 18 years or Older: Yes The Clinical Diagnosis of Ischemic Stroke That is Causing a Potentially Disabling Neurological Deficit: Yes Time of Onset is Well Established to be Less Than 270 Minute Before Treatment Would Begin: Yes Risk/Benefit Discussed With Patient/Family Member Present: No - Exclusion Criteria for Altepase Uncontrolled Hypertension at Time of Treatment (Systolic BP above 185 or Diastolic BP above 110 mmHg): Yes Active Internal Bleeding: No Known Bleeding Diathesis Including but Not Limited to: Platelets Below 100,000/ mm,PTT Above 40 sec After Heparin Use, Current Use of Oral Anitcoagulant With INR Greater Than 1.7 or PT Greater Than 15 secs: No Evidence of an Intracranial Hemorrhage: No Evidence of Major Acute Infarct With Signs Greater Than 1/3 MCA Territory: No Suspicion of Subarachnoid Hemorrhage on Pretreatment Evaluation Even if CT Head Negative For Hemorrhage: No - Warning to TPA With Conditions Following Conditions Weighed Against Anticipated Benefit: Yes Condition: Stroke Severity Too Severe (NIHSS greater than 22), Care Team Unable to Determine Eligibilty, Seizure at Onset of Stroke Past Medical History Reviewed: Historical Data, Nursing Documentation, Vital Signs Vital Signs: Last Vital Signs Temp 98.1 F 04/29/17 12:50 Pulse 95 H 04/29/17 15:00 Resp 16 04/29/17 15:00 BP 202/123 H 04/29/17 15:00 Pulse Ox 100 04/29/17 14:14 - Medical History PMH: Anemia (Iron-deficient), Anxiety, Arthritis, Asthma, Back Problems, CHF, Depression, Diabetes (type II), GERD, HTN, Hypercholesterolemia, Chronic Pain Denies: HIV, Chronic Kidney Disease, Seizures, Sexually Transmitted Disease - Surgical History Surgical History: Appendectomy, Carotid Endarterectomy, Cholecystectomy, C- Section ( x 3) - Family History Family History: States: Unknown Family Hx - Home Medications Home Medications: Ambulatory Orders Medication Instructions Recorded DULoxetine [Cymbalta] 30 mg PO HS #30 ecc 04/13/17 Ferrous Sulfate [Feosol] 325 mg PO BID #60 tab 04/13/17 GlipiZIDE SR [Glucotrol XL] 5 mg PO BID #60 tab 04/13/17 Insulin Detemir [Levemir] 10 unit SC HS #1 unit 04/13/17 Morphine [Morphine Extended 30 mg PO Q12 #60 tabsr 04/13/17 Release Tab] Oxycodone HCl/Acetaminophen 1 each PO Q6 PRN #120 tablet 04/13/17 [Endocet 10-325 mg Tablet] Pantoprazole [Protonix EC Tab] 40 mg PO DAILY #30 ect 04/13/17 Pravastatin Sodium [Pravachol] 40 mg PO HS #30 tab 04/13/17 Pregabalin [Lyrica] 100 mg PO TID #90 cap 04/13/17 SITagliptin [Januvia] 100 mg PO DAILY #1 tab 04/13/17 Insulin Aspart Prot/Insuln Asp 20 unit SC Q12H 04/29/17 [Novolog Mix 70-30 Vial] - Allergies Allergies/Adverse Reactions: Allergies Allergy/AdvReac Type Severity Reaction Status Date / Time vancomycin AdvReac ITCHING Verified 05/22/16 13:09 Review of Systems Review Of Systems: ROS cannot be obtained secondary to pt's inabilty to answer questions. Physical Exam - Reviewed Nursing Documentation Reviewed: Yes Vital Signs Reviewed: Yes - Physical Exam Appears: Positive for: Non-toxic (obtunded, withdraws to pain b/l) Head Exam: Positive for: ATRAUMATIC, NORMAL INSPECTION, NORMOCEPHALIC Skin: Positive for: Normal Color, Warm, DRY Eye Exam: Positive for: PERRL (sluggish 3mm symmetric) ENT: Positive for: Normal ENT Inspection Neck: Positive for: Normal, Painless ROM Cardiovascular/Chest: Positive for: Regular Rate, Rhythm Respiratory: Positive for: CNT, Normal Breath Sounds Gastrointestinal/Abdominal: Positive for: Bowel Sounds, Soft. Negative for: Tenderness, Guarding Back: Positive for: Normal Inspection Extremity: Positive for: Normal ROM, Other (R BKA stump intact, no erythema). Negative for: Deformity Neurologic/Psych: Positive for: Motor/Sensory Deficits (obtunded, withdraws to pain b/l symmetric), Gait (unable to assess), Facial Droop (? loss nasolabial fold). Negative for: Alert - Laboratory Results Result Diagrams: 04/29/17 12:27 04/29/17 12:50 - ECG ECG: Positive for: Interpreted By Me ECG Rhythm: Positive for: Sinus Rhythm, ST/T Changes, Nonspecific Changes Rate: 86 O2 Sat by Pulse Oximetry: 100 Pulse Ox Interpretation: Normal - Radiology X-Ray: Interpreted by Me, Read By Radiologist (poor inspiratory effort) - CT Scan/US CT brain Other Rad Studies (CT/US): Radiology Report Reviewed (d/w Dr Gay no acute infarct no change from prior CT brain) Medical Decision Making Medical Decision Making: Code stroke initiated based on history from field. Given versed, physical exam is unhelpful. labs reviewed Labetolol 10mg IV ordered CT brain d/w Dr Gay radiology Dr Bella combination technician neurology saw patient in ED, recommended CTA head/neck. labs reviewed, +hyperglycemia CTA head/neck: Accession No. : [id number] Patient Name / ID : WHITNEY DARDEN / [id number] Exam Date : 04/29/2017 14:10:58 ( Approved ) Study Comment : Sex / Age : F / 56Y Creator : Jose Oscar MD Dictator : Jose Oscar MD [employer] Paralegal : Qa Test Lead : Jose Oscar MD Approver2 : Report Date : 04/29/2017 14:30:13 My Comment : PROCEDURE: CT Angiography of the Brain. HISTORY: seizure, ?R weakness COMPARISON: None available. TECHNIQUE: CT angiography of the intracranial arteries was performed. Coronal and sagittal maximum intensity projection reformated images were generated. This CT exam was performed using one or more of the following dose reduction techniques: Automated exposure control, adjustment of the mA and/or kV according to patient size, and/or use of iterative reconstruction technique. FINDINGS: INTERNAL CEREBRAL ARTERIES: Artifacts from the skullbase combine with somewhat limited contrast opacification in the intra canalicular and cavernous segments is segments of the bilateral internal carotid arteries are somewhat limited evaluation. Atherosclerotic changes seen at the bilateral cavernous segments and moderate stenoses are present bilaterally. The supraclinoid segments or patent without significant stenosis bilaterally. ANTERIOR CEREBRAL ARTERIES: Unremarkable. A1 and A2 segments are widely patent. Smaller distal branches unremarkable, as visualized. MIDDLE CEREBRAL ARTERIES: Unremarkable. M1 and M2 segments are widely patent. Perisylvian branches grossly symmetric. POSTERIOR CIRCULATION: Basilar Artery: Unremarkable. Distal Vertebral Arteries: Unremarkable. Posterior Cerebral Arteries: Unremarkable. Posterior Inferior Cerebellar Arteries: Not clearly identified bilaterally. NECK CTA RESULTS: Common carotid arteries: The bilateral common carotid appear widely patent from their origins to their bifurcations with no significant stenosis appreciated. No evidence to suggest common carotid artery dissection. Internal carotid arteries: No significant stenosis is appreciated throughout the right cervical internal carotid artery segment and there is no evidence of dissection bilaterally. A moderate stenosis of the proximal left internal carotid artery is appreciated potentially up to 50 percent. Mild bilateral carotid bulbar plaque is seen bilaterally. . Vertebral arteries: The bilateral vertebral artery normal in caliber from their origins to their union with the basilar artery. Vertebrobasilar system appears left dominant. No significant stenosis or definite pattern of dissection. Incidentally, the bilateral subclavian arteries are widely patent as well as the brachiocephalic artery. ANEURYSM/ VASCULAR MALFORMATIONS: None. OTHER FINDINGS: None. IMPRESSION: 1. Moderate bilateral cavernous internal carotid artery stenoses are identified bilaterally. However, there are no significant intracranial findings appreciated bilaterally. 2. Neck CTA component is remarkable for possible 40-50 percent stenosis of the proximal left ICA with a right ICA widely patent. Mild carotid bulbar plaques identified bilaterally. Bilateral common carotid arteries appear widely patent. ASA 81mg ordered Admit Dr Willoughby who cared for patient on recent admission for R BKA. Family updated on findings 305pm patient awake, BP remains accelerated, additional labetolol ordered IV. +vomiting, zofran ordered, patient awake/alert denies abdominal pain or focal weakness. Does note headache and nausea. Disposition - Clinical Impression Clinical Impression: New onset seizure, Hypertensive urgency - Patient ED Disposition Is Patient to be Admitted: Yes - Disposition Disposition Time: 15:05 Condition: FAIR - Pt Status Changed To: Hospital Disposition Of: Inpatient - Admit Certification Admit to Inpatient:: After my assessment, the patient will require hospitalization for at least two midnights. This is because of the severity of symptoms shown, intensity of services needed, and/or the medical risk in this patient being treated as an outpatient. - POA Present On Arrival: Poor Glycemic Control
--- NOTE | 2017-04-29 18:13 | CARD ---
APPROVED REPORT EKG Measurement Heart [id number] <Conclusion> Normal sinus rhythm Cannot rule out Anterior infarct, age undetermined Abnormal ECG
--- NOTE | 2017-04-29 20:33 | CON ---
NEUROLOGY CONSULT DATE: 04/29/2017 CHIEF COMPLAINT: Altered mental status, questionable seizure. HISTORY OF PRESENT ILLNESS: This is a 56-year-old woman who is well known to me from 12/2016 with a history of chronic PVD status post right BKA, history of left CEA for left carotid artery stenosis, hypertension, type 2 diabetes mellitus, diabetic peripheral neuropathy who is on aspirin, Plavix, and statin for stroke prevention, who presents to the hospital because at home she developed questionable right-sided weakness, focal seizure, right gaze preference, and was altered, had a witnessed tonic-clonic seizure and was given 5 mg of IM Versed in the EMS which resulted in resolution of the seizure. Her CAT scan of the head showed no acute intracranial abnormalities. She came to and she is moving her both upper extremities without any difficulty. CAT scan of the head showed no acute intracranial abnormality. CT angio of the head and neck showed 40%-50% left ICA stenosis and right ICA widely patent. Currently, she will be going for an MRI soon. She is on Cymbalta for neuropathic pain 30 mg p.o. q.h.s. and Lyrica 100 mg p.o. t.i.d. for neuropathic pain. PAST MEDICAL HISTORY: Type 2 diabetes mellitus; chronic PVD, status post BKA; hypertension; diabetic peripheral neuropathy and neuropathic pain, on Lyrica and Cymbalta; history of left CEA, has carotid artery stenosis. REVIEW OF SYSTEMS: Difficult to obtain due to patient's altered mental status. SOCIAL HISTORY: No illicit drug use, smoking, or EtOH abuse at this time. MEDICATIONS: Reviewed by nurse per reconciliation sheet. FAMILY HISTORY: Noncontributory. ALLERGIES: NOTED TO VANCOMYCIN. PHYSICAL EXAMINATION: GENERAL: Patient is drowsy, in no acute distress. VITAL SIGNS: Temperature afebrile, pulse rate of 95, respirations 16, blood pressure 202/122, oxygen saturation 100% by room air. HEENT: Head is atraumatic and normocephalic. PERRLA. Extraocular muscles intact. NECK: Supple. No JVD. No adenopathy noted. HEART: S1, S2. Normal rate and rhythm. No murmur, rubs, or gallops. LUNGS: Clear to auscultation. No adventitious sounds. ABDOMEN: Soft, nontender, and nondistended. Bowel sounds present. EXTREMITIES: No clubbing. No cyanosis. Peripheral pulses 2+ felt bilaterally. NEUROLOGIC: Patient is drowsy, in no acute distress. Speech is hypophonic, but no aphasia noted. Cranial nerves II through XII intact with some questionable right facial asymmetry. Motor: Withdraws and moves upper extremity, has right BKA. Left leg is intact. Sensory: Decreased light touch and pinprick up to the calves bilaterally and decreased vibration of the toes and joint in the upper extremities. DTRs are 1+ throughout in the upper extremities and 1 at the left knee. Coordination and gait deferred for now. LABORATORY DATA: Sodium is 144, potassium 3.7, chloride 102, carbon dioxide 22, BUN of 14, creatinine 0.6, and random glucose,. ASSESSMENT AND PLAN: This is a 56-year-old woman with history of chronic peripheral vascular disease status post right below-knee amputation; type 2 diabetes mellitus; diabetic peripheral neuropathy and neuropathic pain, on Lyrica and Cymbalta; hypertension; dyslipidemia; carotid artery stenosis status post left carotid endarterectomy, who presents with focal generalized tonic-clonic seizure and right upward gaze, which was broken by 5 mg of IM Versed in the EMS and in the ER had elevated systolic blood pressures. Likely, the differential at this point could be possibly secondary to an acute infarction resulting in a focal seizure versus htn urgency causing generalized seizure as well. At this time, recommend; 1. Continue with aspirin 81, Plavix 75 mg, and Lipitor 40 mg for stroke prevention. 2. Keep blood sugars between 140 to 180. 3. MRI of the brain without contrast to assess for any acute infarct. 4. We will keep her on Keppra 500 mg IV q.12 hours. 5. Lyrica 100 mg p.o. b.i.d. and Cymbalta 30 mg p.o. q.h.s. for neuropathic pain. 6. Monitor electrolytes and correct accordingly. Once again, thank you for this consult. Layo Bella MD G[facility]O
[2017-04-29] MEDS ORDERED: ACETAMINOPHEN PO PRN (21:10)
[2017-04-29] MEDS ORDERED: OXYCODONE HCL PO PRN (21:10)
[2017-04-29] MEDS: Pravastatin Sodium 40 MG TAB PO SCH (22:58)
[2017-04-29] MEDS: Insulin Detemir 100 Units/ml Inj SC SCH (22:58)
[2017-04-29] MEDS: Insulin Lispro Mix 75/25 100 units/ml (HumaLog) 10ml SC SCH (22:59)
[2017-04-29] MEDS: Insulin Regular 100 units/ml SC SCH (23:02)
[2017-04-30] MEDS: Insulin Regular 100 units/ml SC SCH ×4 (07:52→21:29)
[2017-04-30] MEDS ORDERED: Morphine 30 mg SR Tab PO SCH (09:00)
[2017-04-30] MEDS: GlipiZIDE 5 mg SR Tab PO SCH ×2 (10:03→17:37)
[2017-04-30] MEDS: levETIRAcetam 500 MG in Sodium Chloride 0.9% 100 ML IVPB SCH ×2 (10:04→21:08)
[2017-04-30] MEDS: Enoxaparin 40 mg Syringe SC SCH (10:05)
[2017-04-30] MEDS: Pantoprazole 40 mg EC Tab PO SCH (10:05)
[2017-04-30] MEDS: Insulin Lispro Mix 75/25 100 units/ml (HumaLog) 10ml SC SCH ×2 (10:09→21:30)
--- NOTE | 2017-04-30 11:47 | CP.PCM.HP ---
History of Present Illness - History of Present Illness History of Present Illness: 56 YO F w/ a h/o of chronic PVD s/p right BKA, DM2 was admitted because she developed questionable right sided weakness with tonic clonic seizure, denies any loss of bowl and bladder. Was given 5 mg Versed by EMS, which was able to stop the seizure. Patient currently is able to move her upper and lower extremity denies any headache, nausea or vomiting. CT did not show any acure intracranial abnormality. CT angio showed 40-50% left ICA steonsis and right ICA widely patent. PMH: DM2, Chronic PVD, S/P BKA, htn, peripheral neuropathy SH: No illicit drug use, smoking, ETOH Med: Reviewed FH: Non contributory Allergy: Vancomycin Present on Admission - Present on Admission Any Indicators Present on Admission: Yes History of Uncontrolled Diabetes: Yes Review of Systems - Review of Systems All systems: reviewed and no additional remarkable complaints except Past Patient History - Infectious Disease Hx of Infectious Diseases: None - Past Medical History & Family History Past Medical History?: Yes - Past Social History Smoking Status: Never Smoked - CARDIAC Hx Cardiac Disorders: Yes Hx Congestive Heart Failure: Yes Hx Hypercholesterolemia: Yes Hx Hypertension: Yes - PULMONARY Hx Respiratory Disorders: Yes Hx Asthma: Yes - NEUROLOGICAL Hx Neurological Disorder: No - HEENT Hx HEENT Problems: No - RENAL Hx Chronic Kidney Disease: No - ENDOCRINE/METABOLIC Hx Endocrine Disorders: Yes Hx Diabetes Mellitus Type 2: Yes - HEMATOLOGICAL/ONCOLOGICAL Hx Blood Disorders: Yes Hx AIDS: No Hx Anemia: Yes Hx Human Immunodeficiency Virus (HIV): No - INTEGUMENTARY Hx Dermatological Problems: No - MUSCULOSKELETAL/RHEUMATOLOGICAL Hx Musculoskeletal Disorders: Yes Hx Back Pain: Yes Hx Falls: Yes - GASTROINTESTINAL Hx Gastrointestinal Disorders: No Hx Gastroesophageal Reflux: Yes - GENITOURINARY/GYNECOLOGICAL Hx Genitourinary Disorders: No - PSYCHIATRIC Hx Psychophysiologic Disorder: Yes Hx Anxiety: Yes Hx Depression: Yes Hx Substance Use: No - SURGICAL HISTORY Hx Appendectomy: Yes Hx Carotid Endarterectomy: Yes Hx Section: Yes (x3) Hx Cholecystectomy: Yes - ANESTHESIA Hx Anesthesia: Yes Hx Anesthesia Reactions: No Hx Malignant Hyperthermia: No Has any member of the family had a problem w/ anesthesia?: No Meds Allergies/Adverse Reactions: Allergies Allergy/AdvReac Type Severity Reaction Status Date / Time vancomycin AdvReac ITCHING Verified 05/22/16 13:09 Physical Exam - Constitutional Appears: No Acute Distress - Head Exam Head Exam: NORMAL INSPECTION - Respiratory Exam Respiratory Exam: Clear to Auscultation Bilateral, NORMAL BREATHING PATTERN. absent: Rales, Rhonchi, Wheezes, Stridor - Cardiovascular Exam Cardiovascular Exam: REGULAR RHYTHM, +S1, +S2 - GI/Abdominal Exam GI & Abdominal Exam: Normal Bowel Sounds - Neurological Exam Neurological exam: Alert, CN II-XII Intact, Oriented x3 - Skin Skin Exam: Normal Color, Warm Results - Vital Signs Recent Vital Signs: Last Vital Signs Temp 97.6 F 04/30/17 08:00 Pulse 69 04/30/17 08:00 Resp 20 04/30/17 08:00 BP 153/67 H 04/30/17 08:00 Pulse Ox 100 04/30/17 08:00 - Labs Result Diagrams: 04/29/17 12:27 04/29/17 12:50 Labs: Laboratory Results - last 24 hr 04/29/17 04/29/17 04/29/17 12:21 12:27 12:27 WBC 9.6 RBC 4.85 Hgb 14.5 D Hct 45.0 MCV 92.8 D MCH 29.9 MCHC 32.2 L RDW 18.3 H Plt Count 210 MPV 11.6 Neut % (Auto) 68.8 Lymph % (Auto) 17.3 L Rhea % (Auto) 6.3 Eos % (Auto) 6.9 H Baso % (Auto) 0.7 Neut # 6.6 Lymph # 1.7 Rhea # 0.6 Eos # 0.7 Baso # 0.1 PT INR APTT Sodium Cancelled Potassium Cancelled Chloride Cancelled Carbon Dioxide Cancelled Anion Gap Cancelled BUN Cancelled Creatinine Est GFR ( Amer) Cancelled Est GFR (Non-Af Amer) Cancelled POC Glucose (mg/dL) 335 H Random Glucose Cancelled Hemoglobin A1c Calcium Cancelled Total Bilirubin Cancelled AST Cancelled ALT Cancelled Alkaline Phosphatase Cancelled Troponin I 0.0310 Total Protein Cancelled Albumin Cancelled Globulin Cancelled Albumin/Globulin Ratio Cancelled Triglycerides 205 H Cholesterol 182 LDL Cholesterol Direct 100 HDL Cholesterol 36 Urine Color Urine Clarity Urine pH Ur Specific [place] Urine Protein Urine Glucose (UA) Urine Ketones Urine Blood Urine Nitrate Urine Bilirubin Urine Urobilinogen Ur Leukocyte Esterase Urine RBC (Auto) Urine Microscopic WBC Ur Squamous Epith Cells Urine Bacteria Blood Type Antibody Screen BBK History Checked 04/29/17 04/29/17 04/29/17 12:27 12:27 12:27 WBC RBC Hgb Hct MCV MCH MCHC RDW Plt Count MPV Neut % (Auto) Lymph % (Auto) Rhea % (Auto) Eos % (Auto) Baso % (Auto) Neut # Lymph # Rhea # Eos # Baso # PT 11.0 INR 1.0 APTT 38.9 H Sodium Potassium Chloride Carbon Dioxide Anion Gap BUN Creatinine Est GFR ( Amer) Est GFR (Non-Af Amer) POC Glucose (mg/dL) Random Glucose Hemoglobin A1c 7.1 H Calcium Total Bilirubin AST ALT Alkaline Phosphatase Troponin I Total Protein Albumin Globulin Albumin/Globulin Ratio Triglycerides Cholesterol LDL Cholesterol Direct HDL Cholesterol Urine Color Urine Clarity Urine pH Ur Specific [place] Urine Protein Urine Glucose (UA) Urine Ketones Urine Blood Urine Nitrate Urine Bilirubin Urine Urobilinogen Ur Leukocyte Esterase Urine RBC (Auto) Urine Microscopic WBC Ur Squamous Epith Cells Urine Bacteria Blood Type Cancelled Antibody Screen Cancelled BBK History Checked Cancelled 04/29/17 04/29/17 04/29/17 12:50 13:15 16:25 WBC RBC Hgb Hct MCV MCH MCHC RDW Plt Count MPV Neut % (Auto) Lymph % (Auto) Rhea % (Auto) Eos % (Auto) Baso % (Auto) Neut # Lymph # Rhea # Eos # Baso # PT INR APTT Sodium 141 Potassium 3.7 Chloride 102 Carbon Dioxide 23 Anion Gap 20 BUN 14 Creatinine 0.6 L Est GFR ( Amer) > 60 Est GFR (Non-Af Amer) > 60 POC Glucose (mg/dL) Random Glucose 359 H Hemoglobin A1c Calcium 8.9 Total Bilirubin 0.6 AST 59 H D ALT 50 Alkaline Phosphatase 383 H D Troponin I 0.0320 Total Protein 8.2 Albumin 4.1 Globulin 4.1 H Albumin/Globulin Ratio 1.0 Triglycerides Cholesterol LDL Cholesterol Direct HDL Cholesterol Urine Color Yellow Urine Clarity Clear Urine pH 7.0 Ur Specific [place] 1.020 Urine Protein >=500 Urine Glucose (UA) >=500 Urine Ketones Negative Urine Blood Small Urine Nitrate Negative Urine Bilirubin Negative Urine Urobilinogen 0.2-1.0 Ur Leukocyte Esterase Neg Urine RBC (Auto) 11 H Urine Microscopic WBC 10 H Ur Squamous Epith Cells < 1 Urine Bacteria Rare Blood Type Antibody Screen BBK History Checked 04/29/17 04/29/17 04/30/17 17:25 21:14 06:00 WBC RBC Hgb Hct MCV MCH MCHC RDW Plt Count MPV Neut % (Auto) Lymph % (Auto) Rhea % (Auto) Eos % (Auto) Baso % (Auto) Neut # Lymph # Rhea # Eos # Baso # PT INR APTT Sodium Potassium Chloride Carbon Dioxide Anion Gap BUN Creatinine Est GFR ( Amer) Est GFR (Non-Af Amer) POC Glucose (mg/dL) 366 H 260 H 103 Random Glucose Hemoglobin A1c Calcium Total Bilirubin AST ALT Alkaline Phosphatase Troponin I Total Protein Albumin Globulin Albumin/Globulin Ratio Triglycerides Cholesterol LDL Cholesterol Direct HDL Cholesterol Urine Color Urine Clarity Urine pH Ur Specific [place] Urine Protein Urine Glucose (UA) Urine Ketones Urine Blood Urine Nitrate Urine Bilirubin Urine Urobilinogen Ur Leukocyte Esterase Urine RBC (Auto) Urine Microscopic WBC Ur Squamous Epith Cells Urine Bacteria Blood Type Antibody Screen BBK History Checked 04/30/17 11:00 WBC RBC Hgb Hct MCV MCH MCHC RDW Plt Count MPV Neut % (Auto) Lymph % (Auto) Rhea % (Auto) Eos % (Auto) Baso % (Auto) Neut # Lymph # Rhea # Eos # Baso # PT INR APTT Sodium Potassium Chloride Carbon Dioxide Anion Gap BUN Creatinine Est GFR ( Amer) Est GFR (Non-Af Amer) POC Glucose (mg/dL) 262 H Random Glucose Hemoglobin A1c Calcium Total Bilirubin AST ALT Alkaline Phosphatase Troponin I Total Protein Albumin Globulin Albumin/Globulin Ratio Triglycerides Cholesterol LDL Cholesterol Direct HDL Cholesterol Urine Color Urine Clarity Urine pH Ur Specific [place] Urine Protein Urine Glucose (UA) Urine Ketones Urine Blood Urine Nitrate Urine Bilirubin Urine Urobilinogen Ur Leukocyte Esterase Urine RBC (Auto) Urine Microscopic WBC Ur Squamous Epith Cells Urine Bacteria Blood Type Antibody Screen BBK History Checked Assessment & Plan - Assessment and Plan (Free Text) Assessment: 1) New onset of tonic clonic seizure - Keppra 500mg Q12 - F/U with MRI results 2) Peripheral neuropathy - Lyrica and Cymbalta 3) DM 2 - Januvia - sliding scale 4) Hyperlipidemia - Pravastatin 5) DVT prophylaxis Lovenox
[2017-04-30] MEDS: Morphine 15 mg SR Tab PO SCH ×2 (12:58→21:13)
--- NOTE | 2017-04-30 16:27 | MRI ---
PROCEDURE: MRI BRAIN WITHOUT CONTRAST HISTORY: cva COMPARISON: None. TECHNIQUE: Multiplanar, multisequence MR images of the brain were obtained without intravenous contrast enhancement. FINDINGS: HEMORRHAGE: None DWI: No evidence of an acute or early subacute infarction. BRAIN PARENCHYMA: No mass effect or edema. There is a large amount of abnormal signal intensity on FLAIR and T2 weighted images within the subcortical and deep white matter of both hemispheres left greater than right. There is no corresponding diffusion abnormality to suggest infarction. This could represent reversible edema. This can be seen in the setting of hypertension. It is less likely that this represents encephalomalacia. The CT scan is relatively normal. Follow-up MRI may be indicated. VENTRICLES: Unremarkable. No hydrocephalus. CRANIUM: Unremarkable. ORBITS: Grossly unremarkable. PARANASAL SINUSES/MASTOIDS: Clear VASCULAR SYSTEM: Skull base flow voids intact. OTHER FINDINGS: None. IMPRESSION: White matter edema within the subcortical and deep white matter of both hemispheres left greater than right. This could represent some form of reversible edema related to hypertension. Clinical correlation is suggested. There is no evidence of acute infarct.
[2017-04-30] MEDS: Pravastatin Sodium 40 MG TAB PO SCH (21:12)
[2017-04-30] MEDS: Insulin Detemir 100 Units/ml Inj SC SCH (21:41)
[2017-05-01] MEDS: Insulin Regular 100 units/ml SC SCH ×4 (07:30→21:14)
[2017-05-01] MEDS: Morphine 15 mg SR Tab PO SCH ×2 (08:52→21:17)
[2017-05-01] MEDS: Enoxaparin 40 mg Syringe SC SCH (08:54)
[2017-05-01] MEDS: Pantoprazole 40 mg EC Tab PO SCH (08:54)
[2017-05-01] MEDS: GlipiZIDE 5 mg SR Tab PO SCH ×2 (08:54→17:33)
[2017-05-01] MEDS: levETIRAcetam 500 MG in Sodium Chloride 0.9% 100 ML IVPB SCH ×2 (08:55→20:45)
[2017-05-01] MEDS: Insulin Lispro Mix 75/25 100 units/ml (HumaLog) 10ml SC SCH ×2 (08:56→21:14)
--- NOTE | 2017-05-01 11:38 | CP.PCM.PN ---
Subjective - Date & Time of Evaluation Date of Evaluation: 05/01/17 Time of Evaluation: 11:33 - Subjective Subjective: PAtient is seen and examined at bedside. States she feels better, denies any overnight events. Encouraged ambulation with PT Objective - Vital Signs/Intake and Output Vital Signs (last 24 hours): Temp Pulse Resp BP Pulse Ox 98.5 F 68 18 127/70 97 05/01/17 08:00 05/01/17 08:00 05/01/17 08:00 05/01/17 08:00 05/01/17 08:00 - Medications Medications: Current Medications Aspirin (Ecotrin) 81 mg PO DAILY [facility] Last Admin: 05/01/17 08:54 Dose: 81 mg Atorvastatin Calcium (Lipitor) 40 mg PO DAILY [facility] Last Admin: 04/30/17 10:05 Dose: 40 mg Clopidogrel Bisulfate (Plavix) 75 mg PO DAILY [facility] Last Admin: 05/01/17 08:54 Dose: 75 mg Duloxetine HCl (Cymbalta) 30 mg PO HS [facility] Last Admin: 04/30/17 21:11 Dose: 30 mg Enoxaparin Sodium (Lovenox) 40 mg SC DAILY [facility] PRN Reason: Protocol Last Admin: 05/01/17 08:54 Dose: 40 mg Ferrous Sulfate (Feosol) 325 mg PO BID [facility] Last Admin: 05/01/17 08:54 Dose: 325 mg Glipizide (Glucotrol Xl) 5 mg PO BID [facility] Last Admin: 05/01/17 08:54 Dose: 5 mg Home Med (Oxycodone Hcl/Acetaminophen [Endocet 10-325 Mg Tablet]) 1 each PO Q6 PRN PRN Reason: Pain, severe (8-10) Levetiracetam 500 mg/ Sodium (Chloride) 105 mls @ 210 mls/hr IVPB Q12 [facility] Last Admin: 05/01/17 08:55 Dose: 210 mls/hr Insulin Detemir (Levemir) 10 units SC [facility] Last Admin: 04/30/17 21:41 Dose: Not Given Insulin Human Regular (Humulin R) 0 units SC ACHS [facility] PRN Reason: Protocol Last Admin: 05/01/17 07:30 Dose: Not Given Insulin Lispro Protam/Lispro Human (Humalog Mix 75/25) 20 units SC Q12 [facility] Last Admin: 05/01/17 08:56 Dose: 20 units Morphine Sulfate (Morphine Extended Release Tab) 30 mg PO Q12 [facility] Last Admin: 05/01/17 08:52 Dose: 30 mg Pantoprazole Sodium (Protonix Ec Tab) 40 mg PO DAILY [facility] Last Admin: 05/01/17 08:54 Dose: 40 mg Pravastatin Sodium (Pravachol) 40 mg PO HS [facility] Last Admin: 04/30/17 21:12 Dose: 40 mg Pregabalin (Lyrica) 100 mg PO BID [facility] Last Admin: 05/01/17 08:53 Dose: 100 mg Sitagliptin Phosphate (Januvia) 100 mg PO DAILY [facility] Last Admin: 05/01/17 08:53 Dose: 100 mg - Labs Labs: 04/29/17 12:27 04/29/17 12:50 PT 11.0 Seconds (9.8-13.1) 04/29/17 12:27 INR 1.0 (0.9-1.2) 04/29/17 12:27 APTT 38.9 Seconds (25.6-37.1) H 04/29/17 12:27 - Constitutional Appears: No Acute Distress - Head Exam Head Exam: NORMAL INSPECTION - Eye Exam Eye Exam: Normal appearance - Neck Exam Neck Exam: Normal Inspection - Respiratory Exam Respiratory Exam: Clear to Ausculation Bilateral - Cardiovascular Exam Cardiovascular Exam: REGULAR RHYTHM, +S1, +S2 - Neurological Exam Neurological Exam: Alert, Awake, CN II-XII Intact - Skin Skin Exam: Normal Color, Warm Assessment and Plan - Assessment and Plan (Free Text) Assessment: 1) New onset of tonic clonic seizure most likely secondary to hypertensive urgency - MRI showed white matter edema within subcortical and deep white matter of both hemisphere left greater then right, no acute infarct - Patients blood pressure on admission was systolic in the 200's. - Keppra 500mg Q12 2) Peripheral neuropathy - Lyrica and Cymbalta 3) DM 2 - Januvia - sliding scale 4) Hyperlipidemia - Pravastatin 5) DVT prophylaxis Lovenox
--- NOTE | 2017-05-01 12:05 | PQF GENQUE ---
Dr. Willoughby, In agreement with ER MD and Neurologist dx.: Hypertensive Urgency: POA? OR:Disagree OR:Other explanation of clinical finding H and P; history of HTN: Assessment: 1) New onset of tonic clonic seizure- Keppra 500mg Q12 - F/U with MRI results 2) Peripheral neuropathy - Lyrica and Cymbalta 3) DM 2 - Januvia - sliding scale 4) Hyperlipidemia - Pravastatin Vital sign record: 04/19:145/76->178/93->186/90->202/123>197/98->191/91 MRI Brain Impression : White matter edema within the subcortical and deep white matter of both hemispheres left greater than right. This could represent some form of reversible edema related to hypertension. Clinical correlation is suggested. There is no evidence of acute infarct. -- Labetalol 20 mg IVP stat ordered by the ER MD This form is a permanent part of the medical record Clarification of your documentation is requested to better reflect the severity of illness and intensity of treatment of your patient. Indicators present [] Specify: [] [] Specify: [] [] Specify: [] [] Specify: [] Location in the medical record that reflects the above clinical findings: [] Treatment Provided: [] PHYSICIAN'S RESPONSE Based on your medical judgment of the clinical indicators outlined above please clarify the following: [] Practitioner response [] If unable to determine, please check the box, sign and date. Present On Admission (POA) Indicator: [] Present at the time of admission [] Not present at the time of admission [] Clinically Undetermined In responding to this query, please exercise your independent professional judgment. The fact that a question is asked does not imply that any particular answer is desired or expected. Thank you for your clarification on this documentation. If you have any questions please call. * Thank you, Sherry Betts RN ext. #[phone]: Dorothea Jones RN MTDD
--- NOTE | 2017-05-01 13:29 | PN ---
NEUROLOGY FOLLOWUP DATE: 05/01/2017 CHIEF COMPLAINT: Followup for altered mental status. SUBJECTIVE: Patient is doing much better. Blood pressure is much better currently. Today, blood pressure is 127/70. Her MRI of the brain showed no acute intracranial abnormality, just some white matter edema from the subcortical and deep white matter of the both hemispheres, left greater than right from underlying hypertension. She has no further seizures. PAST MEDICAL HISTORY: Type 2 diabetes mellitus; chronic PVD, status post BKA; hypertension; diabetic peripheral neuropathy and neuropathic pain, on Lyrica and Cymbalta; history of left CEA; carotid artery stenosis. REVIEW OF SYSTEMS: A 14-point review of systems negative except in the HPI. SOCIAL HISTORY: No illicit drug use, smoking, or EtOH abuse at this time. MEDICATIONS: Reviewed by nurse per reconciliation sheet. FAMILY HISTORY: Noncontributory. ALLERGIES: NOTED TO VANCOMYCIN. PHYSICAL EXAMINATION: VITAL SIGNS: Temperature 98, pulse rate 68, blood pressure 127/70, respiratory rate 18, oxygen saturation 97% by room air. GENERAL: Patient is sitting up in bed, in no acute distress. HEENT: Head is atraumatic and normocephalic. PERRLA. Extraocular muscles intact. NECK: Supple. No JVD. No adenopathy noted. LUNGS: Clear to auscultation. No adventitious sounds. HEART: S1, S2. Normal rate and rhythm. No murmurs, rubs, or gallops. ABDOMEN: Soft, nontender, and nondistended. Bowel sounds present. EXTREMITIES: No clubbing. No cyanosis. Peripheral pulses 2+ bilaterally except for right BKA. NEUROLOGIC: Patient is mildly drowsy, but in no acute distress. Speech is fluent without any errors. Cranial nerves II through XII are intact. Motor exam, moves all extremities equally. No pronator drift seen. Has a right BKA. Sensory; decreased light touch and pinprick up to the calf on the left and decreased vibration at the toe on the left and upper extremities. DTRs are 1+ throughout in the upper extremities, 1 at the left knee. Coordination and gait deferred for now. LABORATORY DATA: Today's blood sugar is 114. A1c is 7.1. ASSESSMENT AND PLAN: This is a 56-year-old woman with past medical history of chronic peripheral vascular disease, status post right below knee amputation; type 2 diabetes mellitus; diabetic peripheral neuropathy and neuropathic pain, on Lyrica and Cymbalta; hypertension; dyslipidemia; carotid artery stenosis, status post left carotid endarterectomy, who presented with focal generalized tonic-clonic seizure, right upward gaze, and found to have elevated systolic and diastolic blood pressures. Her MRI of the brain just showed subcortical and deep white matter edema, likely related to underlying hypertension, but no acute infarct. 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 At this time, recommend; 1. Keep her blood pressure between 120-130. 2. Aspirin 81, Plavix 75 mg, and Lipitor 40 for stroke prevention. 3. Keep her blood sugars between 140-180 and need diabetic education and diabetic diet. 4. Continue with Lyrica 100 mg p.o. b.i.d. and Cymbalta 30 mg p.o. at bedtime for neuropathic pain. 5. Monitor electrolytes and correct accordingly. 6. PT and OT evaluation. 7. Needs better control of blood pressures and blood pressure medications needs to be adjusted and compliance needs to be assured. At this time, she is clinically stable from my standpoint. Layo Bella MD
--- NOTE | 2017-05-01 13:41 | PQF GENQUE ---
Dr. Willoughby, Please clarify the underlying cause of patient's altered mental status and relate that cause to the alteration in mental status; if known: i.e. Cardiac condition Electrolyte/metabolic imbalance Infectious process Neurologic condition Psychiatric condition Respiratory condition Other condition (please specify) OR Clinically unable to determine OR Unknown ER note; Chief Complaint: Weakness, Mental status change, other (seizure) PE: Physical Exam : Appears: Positive for: Non-toxic (obtunded, withdraws to pain b/l) Notes: 56yo female arrives via EMS, history per EMS at onset reported vomiting at home, developed ? R weakness/ focal seizure and R gaze preference, EMS called, when arrived +AMS with gaze, then witnessed tonic clonic seizure, given versed 5mg IM with resolution of seizure. Residents note: diagnoses include: New onset tonic clonic seizure most likely secondary to Hypertensive Urgency: This form is a permanent part of the medical record Clarification of your documentation is requested to better reflect the severity of illness and intensity of treatment of your patient. Indicators present [] Specify: [] [] Specify: [] [] Specify: [] [] Specify: [] Location in the medical record that reflects the above clinical findings: [] Treatment Provided: [] PHYSICIAN'S RESPONSE Based on your medical judgment of the clinical indicators outlined above please clarify the following: [] Practitioner response [] If unable to determine, please check the box, sign and date. Present On Admission (POA) Indicator: [] Present at the time of admission [] Not present at the time of admission [] Clinically Undetermined In responding to this query, please exercise your independent professional judgment. The fact that a question is asked does not imply that any particular answer is desired or expected. Thank you for your clarification on this documentation. If you have any questions please call. * Thank you, Sherry Betts RN ext. #[phone]: Dorothea COOKD
--- NOTE | 2017-05-01 16:53 | EEG ---
DATE: CONDITION OF THE RECORDING: Drowsy. DIAGNOSIS: Seizure. MEDICATIONS: Reviewed by nurse per reconciliation sheet. INTERPRETATION: This is a 16-channel international recording. The background activity of this tracing was composed of 6 to 7 cycles per second. There was small amount of beta activity of 16 to 20 cycles per second seen during this recording. There was increased amount of theta activity of 5 to 7 cycles per second seen during this tracing. Drowsiness was characterized by the mixed beta and theta activities. The sleep was characterized by vertex transient waves, sleep spindles and bilateral slowing. Photic stimulation showed no changes in the tracing. No paroxysmal activities noted in this recording. CONCLUSION: This is an abnormal EEG due to the presence of mild diffuse slowing consistent with mild bilateral cerebral dysfunction. No evidence of any epileptiform activity. Layo Bella MD
[2017-05-01] MEDS: Pravastatin Sodium 40 MG TAB PO SCH (21:13)
[2017-05-01] MEDS: Insulin Detemir 100 Units/ml Inj SC SCH (21:15)
[2017-05-02] MEDS: Enoxaparin 40 mg Syringe SC SCH (09:14)
[2017-05-02] MEDS: GlipiZIDE 5 mg SR Tab PO SCH ×2 (09:15→17:25)
[2017-05-02] MEDS: Insulin Lispro Mix 75/25 100 units/ml (HumaLog) 10ml SC SCH ×2 (09:15→21:00)
[2017-05-02] MEDS: Insulin Regular 100 units/ml SC SCH ×4 (09:16→22:29)
[2017-05-02] MEDS: levETIRAcetam 500 MG in Sodium Chloride 0.9% 100 ML IVPB SCH ×2 (09:17→21:12)
[2017-05-02] MEDS: Pantoprazole 40 mg EC Tab PO SCH (09:19)
[2017-05-02] MEDS: Morphine 15 mg SR Tab PO SCH ×2 (09:21→21:19)
--- NOTE | 2017-05-02 15:12 | CP.PCM.PN ---
Subjective - Date & Time of Evaluation Date of Evaluation: 05/02/17 Time of Evaluation: 15:11 - Subjective Subjective: Patient remains stable Has no episode of seizure. Objective - Vital Signs/Intake and Output Vital Signs (last 24 hours): Temp Pulse Resp BP Pulse Ox 98.9 F 69 18 146/69 98 05/02/17 12:20 05/02/17 12:20 05/02/17 12:20 05/02/17 12:20 05/02/17 12:20 - Medications Medications: Current Medications Aspirin (Ecotrin) 81 mg PO DAILY [facility] Last Admin: 05/02/17 09:14 Dose: 81 mg Atorvastatin Calcium (Lipitor) 40 mg PO DAILY [facility] Last Admin: 05/01/17 09:00 Dose: 40 mg Clopidogrel Bisulfate (Plavix) 75 mg PO DAILY [facility] Last Admin: 05/02/17 09:19 Dose: 75 mg Duloxetine HCl (Cymbalta) 30 mg PO HS [facility] Last Admin: 05/01/17 21:13 Dose: 30 mg Enoxaparin Sodium (Lovenox) 40 mg SC DAILY [facility] PRN Reason: Protocol Last Admin: 05/02/17 09:14 Dose: 40 mg Ferrous Sulfate (Feosol) 325 mg PO BID [facility] Last Admin: 05/02/17 09:14 Dose: 325 mg Glipizide (Glucotrol Xl) 5 mg PO BID [facility] Last Admin: 05/02/17 09:15 Dose: 5 mg Home Med (Oxycodone Hcl/Acetaminophen [Endocet 10-325 Mg Tablet]) 1 each PO Q6 PRN PRN Reason: Pain, severe (8-10) Levetiracetam 500 mg/ Sodium (Chloride) 105 mls @ 210 mls/hr IVPB Q12 [facility] Last Admin: 05/02/17 09:17 Dose: 210 mls/hr Insulin Detemir (Levemir) 10 units SC HS [facility] Last Admin: 05/01/17 21:15 Dose: 10 units Insulin Human Regular (Humulin R) 0 units SC ACHS [facility] PRN Reason: Protocol Last Admin: 05/02/17 09:16 Dose: 2 u Insulin Lispro Protam/Lispro Human (Humalog Mix 75/25) 20 units SC Q12 [facility] Last Admin: 05/02/17 09:15 Dose: 20 units Morphine Sulfate (Morphine Extended Release Tab) 30 mg PO Q12 [facility] Last Admin: 05/02/17 09:21 Dose: 30 mg Pantoprazole Sodium (Protonix Ec Tab) 40 mg PO DAILY [facility] Last Admin: 05/02/17 09:19 Dose: 40 mg Pravastatin Sodium (Pravachol) 40 mg PO HS [facility] Last Admin: 05/01/17 21:13 Dose: 40 mg Pregabalin (Lyrica) 100 mg PO BID [facility] Last Admin: 05/02/17 09:21 Dose: 100 mg Sitagliptin Phosphate (Januvia) 100 mg PO DAILY [facility] Last Admin: 05/02/17 09:14 Dose: 100 mg - Labs Labs: 04/29/17 12:27 04/29/17 12:50 PT 11.0 Seconds (9.8-13.1) 04/29/17 12:27 INR 1.0 (0.9-1.2) 04/29/17 12:27 APTT 38.9 Seconds (25.6-37.1) H 04/29/17 12:27
[2017-05-02] MEDS: Apap-Butalbital-Caffeine 325-50-40mg Tab PO PRN (17:24)
[2017-05-02] MEDS: Pravastatin Sodium 40 MG TAB PO SCH (21:12)
[2017-05-02] MEDS: Insulin Detemir 100 Units/ml Inj SC SCH (22:44)
[2017-05-03] MEDS: Insulin Regular 100 units/ml SC SCH ×3 (06:40→21:53)
[2017-05-03] MEDS: GlipiZIDE 5 mg SR Tab PO SCH ×2 (09:04→16:57)
[2017-05-03] MEDS: Apap-Butalbital-Caffeine 325-50-40mg Tab PO PRN ×2 (09:05→17:05)
[2017-05-03] MEDS: Pantoprazole 40 mg EC Tab PO SCH (09:06)
[2017-05-03] MEDS: Enoxaparin 40 mg Syringe SC SCH (09:06)
[2017-05-03] MEDS: levETIRAcetam 500 MG in Sodium Chloride 0.9% 100 ML IVPB SCH ×2 (09:07→21:47)
[2017-05-03] MEDS: Morphine 15 mg SR Tab PO SCH (09:10)
[2017-05-03] MEDS: Insulin Lispro Mix 75/25 100 units/ml (HumaLog) 10ml SC SCH ×3 (09:13→21:59)
[2017-05-03] MEDS: Pravastatin Sodium 40 MG TAB PO SCH (21:41)
[2017-05-03] MEDS: Insulin Detemir 100 Units/ml Inj SC SCH (21:56)
--- NOTE | 2017-05-03 23:35 | CP.PCM.PN ---
Subjective - Date & Time of Evaluation Date of Evaluation: 05/03/17 Time of Evaluation: 14:00 - Subjective Subjective: Patient has no seizure Claims that headache is tolerable Noted elevated FBS Has no chest pain or SOB. Objective - Vital Signs/Intake and Output Vital Signs (last 24 hours): Temp Pulse Resp BP Pulse Ox 97.8 F 67 19 146/71 96 05/03/17 21:15 05/03/17 21:15 05/03/17 21:15 05/03/17 21:15 05/03/17 21:15 - Medications Medications: Current Medications Acetaminophen/Butalbital/Caffeine (Fioricet) 1 tab PO Q6 PRN PRN Reason: Headache Last Admin: 05/03/17 17:05 Dose: 1 tab Aspirin (Ecotrin) 81 mg PO DAILY [facility] Last Admin: 05/03/17 09:06 Dose: 81 mg Atorvastatin Calcium (Lipitor) 40 mg PO DAILY [facility] Last Admin: 05/03/17 09:05 Dose: 40 mg Clopidogrel Bisulfate (Plavix) 75 mg PO DAILY [facility] Last Admin: 05/03/17 09:05 Dose: 75 mg Duloxetine HCl (Cymbalta) 30 mg PO HS [facility] Last Admin: 05/03/17 21:41 Dose: 30 mg Ferrous Sulfate (Feosol) 325 mg PO BID [facility] Last Admin: 05/03/17 16:57 Dose: 325 mg Glipizide (Glucotrol Xl) 5 mg PO BID [facility] Last Admin: 05/03/17 16:57 Dose: 5 mg Home Med (Oxycodone Hcl/Acetaminophen [Endocet 10-325 Mg Tablet]) 1 each PO Q6 PRN PRN Reason: Pain, severe (8-10) Levetiracetam 500 mg/ Sodium (Chloride) 105 mls @ 210 mls/hr IVPB Q12 [facility] Last Admin: 05/03/17 21:47 Dose: 210 mls/hr Insulin Detemir (Levemir) 10 units SC [facility] Last Admin: 05/03/17 21:56 Dose: 10 units Insulin Human Regular (Humulin R) 0 units SC ACHS [facility] PRN Reason: Protocol Last Admin: 05/03/17 21:53 Dose: Not Given Insulin Lispro Protam/Lispro Human (Humalog Mix 75/25) 20 units SC Q12 [facility] Last Admin: 05/03/17 21:59 Dose: Not Given Pantoprazole Sodium (Protonix Ec Tab) 40 mg PO DAILY [facility] Last Admin: 05/03/17 09:06 Dose: 40 mg Pravastatin Sodium (Pravachol) 40 mg PO HS [facility] Last Admin: 05/03/17 21:41 Dose: 40 mg Pregabalin (Lyrica) 100 mg PO BID [facility] Last Admin: 05/03/17 17:01 Dose: 100 mg Sitagliptin Phosphate (Januvia) 100 mg PO DAILY [facility] Last Admin: 05/03/17 09:04 Dose: 100 mg - Labs Labs: 04/29/17 12:27 04/29/17 12:50 PT 11.0 Seconds (9.8-13.1) 04/29/17 12:27 INR 1.0 (0.9-1.2) 04/29/17 12:27 APTT 38.9 Seconds (25.6-37.1) H 04/29/17 12:27
[2017-05-04] MEDS: Insulin Regular 100 units/ml SC SCH ×3 (06:58→21:18)
[2017-05-04] MEDS: Apap-Butalbital-Caffeine 325-50-40mg Tab PO PRN (08:58)
[2017-05-04] MEDS: GlipiZIDE 5 mg SR Tab PO SCH ×2 (08:59→17:36)
[2017-05-04] MEDS: Insulin Lispro Mix 75/25 100 units/ml (HumaLog) 10ml SC SCH ×2 (08:59→21:21)
[2017-05-04] MEDS: Pantoprazole 40 mg EC Tab PO SCH (09:00)
[2017-05-04] MEDS: levETIRAcetam 500 MG in Sodium Chloride 0.9% 100 ML IVPB SCH (09:09)
[2017-05-04 10:11] VITALS: RESP 20
[2017-05-04 20:01] VITALS: BP 105/51; PULSE 69; TEMP 97.4; O2SAT 96
[2017-05-04] MEDS: Insulin Detemir 100 Units/ml Inj SC SCH (21:21)
[2017-05-04] MEDS: Pravastatin Sodium 40 MG TAB PO SCH (21:22)
== END 2017-05-05 04:04 | DRG 100 ==
LOC: H.ER 12:15 → H.ERHOLD 15:01 → H.TEL 20:06
PROVIDERS: ADMIT Family Medicine; ATTEND Family Medicine
DX: G40.89 Other seizures (principal); I67.83 Posterior reversible encephalopathy syndrome; I16.1 Hypertensive emergency; E11.42 Type 2 diabetes mellitus with diabetic polyneuropathy; E11.51 Type 2 diabetes mellitus with diabetic peripheral angiopathy without gangrene; I65.22 Occlusion and stenosis of left carotid artery; I16.0 Hypertensive urgency; Z89.511 Acquired absence of right leg below knee; E78.5 Hyperlipidemia, unspecified; D50.9 Iron deficiency anemia, unspecified; G89.29 Other chronic pain; J45.909 Unspecified asthma, uncomplicated; K21.9 Gastro-esophageal reflux disease without esophagitis; F41.9 Anxiety disorder, unspecified; M19.90 Unspecified osteoarthritis, unspecified site; Z79.4 Long term (current) use of insulin; Z79.82 Long term (current) use of aspirin; Z88.1 Allergy status to other antibiotic agents

== ENCOUNTER 2017-05-04 14:36 | Inpatient (IN) | payer OTHER ==
[2017-05-04 23:22] VITALS: BMI 30.3
[2017-05-05] MEDS ORDERED: Apap-Butalbital-Caffeine 325-50-40mg Tab PO PRN (01:11)
[2017-05-05 02:33] VITALS: RESP 20
[2017-05-05] MEDS: Insulin Regular 100 units/ml SC SCH ×4 (06:58→21:40)
[2017-05-05] MEDS: GlipiZIDE 5 mg SR Tab PO SCH ×2 (08:33→16:44)
[2017-05-05] MEDS: Pantoprazole 40 mg EC Tab PO SCH (08:33)
[2017-05-05] MEDS: Insulin Lispro Mix 75/25 100 units/ml (HumaLog) 10ml SC SCH ×2 (08:34→21:39)
[2017-05-05 11:57] LABS: BASO # 0.1 K/uL (0.0-0.2); BASO % 0.9 % (0.0-2.0); EOS # 0.3 K/uL (0.0-0.7); EOS % 4.5 % (0.0-4.0); HEMATOCRIT 43.5 % (34.0-47.0); LYMPH # 1.3 K/uL (1.0-4.3); LYMPH % 18.5 % (20.0-40.0); MEAN CELL VOLUME 88.9 fl (81.0-99.0); MEAN CORPUSCULAR HEMOGLOBIN 30.1 pg (27.0-31.0); MEAN CORPUSCULAR HGB CONC 33.9 g/dL (33.0-37.0); MEAN PLATELET VOLUME 10.4 fl (7.2-11.7); MONO # 0.5 K/uL (0.0-0.8); MONO % 7.5 % (0.0-10.0); NEUT # 4.9 K/uL (1.8-7.0); NEUT % 68.6 % (50.0-75.0); NRBC % 0.1 % (0.0-0.0); RED CELL DISTRIBUTION WIDTH 16.7 % (11.5-14.5); WHITE BLOOD COUNT 7.1 K/uL (4.8-10.8)
--- NOTE | 2017-05-05 12:03 | PCM.RRT ---
FLIGHT INFORMATION EXPEDITER Nurse Assessment - Situation Location: TCU Room Number: 706-1 FLIGHT INFORMATION EXPEDITER Reason for Call: Hypertension FLIGHT INFORMATION EXPEDITER Called By: RN - IV IV Inserted during FLIGHT INFORMATION EXPEDITER?: Yes New IV Insertion Tolerance:: Excellent - Medication Medications Administered During FLIGHT INFORMATION EXPEDITER: 10 mg of Hydralazine once IV push x 2. Clonodine 0.2 x 1 - Respiratory Oxygen Delivery Method: Nasal Cannula @L/min - Constitutional Appears: Non-toxic Plan - Assessment of Findings&Treatment Plan FLIGHT INFORMATION EXPEDITER time: 11:41 FLIGHT INFORMATION EXPEDITER location: [facility] FLIGHT INFORMATION EXPEDITER arrival time: 11:42 FLIGHT INFORMATION EXPEDITER reason: Headache/Hypertension S: Patient was seen at bedside after FLIGHT INFORMATION EXPEDITER called by RN complaining of headache/ hypertension. Patient was lying in bed awake with no complains at the time. Patient had an episode of vomiting prior to the arrival. Patient was placed on nasal cannula during FLIGHT INFORMATION EXPEDITER and an IV was placed in right dorsal hand. O: FLIGHT INFORMATION EXPEDITER vitals: T - 95.5, BP: 183/77, HR:71, RR: 15, O2 sat: 98% General: Laying supine in bed Resp: Breathing with nasal cannula at normal rate Cardio: S1, S2 Abd: Soft non-tender FLIGHT INFORMATION EXPEDITER Intervention: 1.Hydralazine 10mg IV dose once x 2 2.Clondine 0.2 mg x 1 3.EKG 4.I.V. insertion 5.Nasal cannula A/P: 56 y/o female with hypertension most likely due to headache FLIGHT INFORMATION EXPEDITER Outcome: 1. Patient is stable 2. PMD notified and agreed with the plan 3. F/u labs, CBC, CMP FLIGHT INFORMATION EXPEDITER Vitals: T: 95.5, BP: 177/76, HR: 64, RR: 16, O2 sat: 98% FLIGHT INFORMATION EXPEDITER End: 11:57 FLIGHT INFORMATION EXPEDITER leader: Dr. Martinez FLIGHT INFORMATION EXPEDITER resident: Dr. Ford Bangura, Dr. Gail Bangura, Dr. Fabiola Bangura, Dr. Christiano Amato
[2017-05-05 12:09] LABS: BLOOD UREA NITROGEN 15 mg/dl (7-17); CALCIUM 9.7 mg/dL (8.4-10.2); CARBON DIOXIDE 26 mmol/L (22-30); CHLORIDE 100 mmol/L (98-107); GFR AFRICAN-AMERICAN > 60; GLUCOSE,RANDOM 264 mg/dL (65-105); POTASSIUM 3.8 MMOL/L (3.6-5.0); SODIUM 137 mmol/l (132-148)
[2017-05-05] MEDS ORDERED: Dexamethasone 10 MG in Dextrose 5% In Water 50 ML IV ONE (12:37)
--- NOTE | 2017-05-05 12:41 | CP.PCM.CON ---
History of Present Illness - History of Present Illness History of Present Illness: Mrs. Grove is a 56-year-old woman who is currently in the TCU after being admitted for right sided weakness with tonic clonic seizure. She was given 5 mg Versed by EMS, which was able to stop the seizure. Today, a rapid response was called after the patient continued to have a severe headache and accelerated hypertension. She was given hydralazine and this improved. She was given dilaudid for the headache, and this seems to have helped as well. The patient was previously evaluated by Dr. Bella, who also started Keppra for seizure prophylaxis. No seizures have been reported since. Review of Systems - Review of Systems All systems: reviewed and no additional remarkable complaints except Past Patient History - Infectious Disease Hx of Infectious Diseases: None - Past Medical History & Family History Past Medical History?: Yes - Past Social History Smoking Status: Heavy Smoker > 10 Cigarettes Daily - CARDIAC Hx Cardiac Disorders: Yes Hx Congestive Heart Failure: Yes Hx Hypercholesterolemia: Yes Hx Hypertension: Yes - PULMONARY Hx Respiratory Disorders: Yes Hx Asthma: Yes - NEUROLOGICAL Hx Neurological Disorder: No - HEENT Hx HEENT Problems: No - RENAL Hx Chronic Kidney Disease: No - ENDOCRINE/METABOLIC Hx Endocrine Disorders: Yes Hx Diabetes Mellitus Type 2: Yes - HEMATOLOGICAL/ONCOLOGICAL Hx Blood Disorders: Yes Hx AIDS: No Hx Anemia: Yes Hx Human Immunodeficiency Virus (HIV): No - INTEGUMENTARY Hx Dermatological Problems: No - MUSCULOSKELETAL/RHEUMATOLOGICAL Hx Falls: No - GASTROINTESTINAL Hx Gastrointestinal Disorders: No Hx Gastroesophageal Reflux: Yes - GENITOURINARY/GYNECOLOGICAL Hx Genitourinary Disorders: No - PSYCHIATRIC Hx Anxiety: Yes Hx Depression: Yes Hx Substance Use: No - SURGICAL HISTORY Hx Appendectomy: Yes Hx Carotid Endarterectomy: Yes Hx Section: Yes (x3) Hx Cholecystectomy: Yes - ANESTHESIA Hx Anesthesia: Yes Hx Anesthesia Reactions: No Hx Malignant Hyperthermia: No Meds Allergies/Adverse Reactions: Allergies Allergy/AdvReac Type Severity Reaction Status Date / Time vancomycin AdvReac ITCHING Verified 05/22/16 13:09 - Medications Medications: Current Medications Amlodipine Besylate (Norvasc) 5 mg PO DAILY [facility] Last Admin: 05/05/17 09:47 Dose: 5 mg Aspirin (Ecotrin) 81 mg PO DAILY [facility] Last Admin: 05/05/17 08:34 Dose: 81 mg Clopidogrel Bisulfate (Plavix) 75 mg PO DAILY [facility] Last Admin: 05/05/17 08:35 Dose: 75 mg Duloxetine HCl (Cymbalta) 30 mg PO [facility] Ferrous Sulfate (Feosol) 325 mg PO BID [facility] Last Admin: 05/05/17 08:32 Dose: 325 mg Glipizide (Glucotrol Xl) 5 mg PO BID [facility] Last Admin: 05/05/17 08:33 Dose: 5 mg Insulin Detemir (Levemir) 10 units SC [facility] Insulin Human Regular (Humulin R) 0 units SC ACHS [facility] PRN Reason: Protocol Last Admin: 05/05/17 06:58 Dose: Not Given Insulin Lispro Protam/Lispro Human (Humalog Mix 75/25) 20 units SC Q12 [facility] Last Admin: 05/05/17 08:34 Dose: 20 units Lisinopril (Zestril) 20 mg PO DAILY [facility] Last Admin: 05/05/17 10:30 Dose: 20 mg Ondansetron HCl (Zofran Inj) 4 mg IVP Q6 PRN PRN Reason: Nausea/Vomiting Last Admin: 05/05/17 09:47 Dose: 4 mg Pantoprazole Sodium (Protonix Ec Tab) 40 mg PO DAILY [facility] Last Admin: 05/05/17 08:33 Dose: 40 mg Pravastatin Sodium (Pravachol) 40 mg PO [facility] Pregabalin (Lyrica) 100 mg PO TID [facility] Last Admin: 05/05/17 08:32 Dose: 100 mg Sitagliptin Phosphate (Januvia) 100 mg PO DAILY [facility] Last Admin: 05/05/17 08:33 Dose: 100 mg Physical Exam - Constitutional Appears: Well - Head Exam Head Exam: ATRAUMATIC, NORMAL INSPECTION, NORMOCEPHALIC - Eye Exam Eye Exam: EOMI, Normal appearance, PERRL - ENT Exam ENT Exam: Mucous Membranes Moist, Normal Exam - Neck Exam Neck exam: Positive for: Normal Inspection - Respiratory Exam Respiratory Exam: Clear to Auscultation Bilateral, NORMAL BREATHING PATTERN - Cardiovascular Exam Cardiovascular Exam: REGULAR RHYTHM - GI/Abdominal Exam GI & Abdominal Exam: Normal Bowel Sounds, Soft. absent: Tenderness - Rectal Exam Rectal Exam: Deferred - Extremities Exam Additional comments: RIGHT BKA - Back Exam Back exam: NORMAL INSPECTION - Neurological Exam Neurological exam: Alert, CN II-XII Intact, Normal Gait, Oriented x3, Reflexes Normal - Psychiatric Exam Psychiatric exam: Normal Affect, Normal Mood - Skin Skin Exam: Dry, Intact, Normal Color, Warm Results - Vital Signs Recent Vital Signs: Last Vital Signs Temp 97.3 F L 05/05/17 08:03 Pulse 70 05/05/17 09:47 Resp 20 05/05/17 08:03 BP 180/77 H 05/05/17 10:30 Pulse Ox 100 05/05/17 08:03 - Labs Result Diagrams: 05/05/17 11:45 05/05/17 11:45 Labs: Laboratory Results - last 24 hr 05/05/17 05/05/17 05/05/17 06:36 10:42 11:45 WBC 7.1 RBC 4.89 Hgb 14.7 Hct 43.5 MCV 88.9 D MCH 30.1 MCHC 33.9 RDW 16.7 H Plt Count 150 MPV 10.4 Neut % (Auto) 68.6 Lymph % (Auto) 18.5 L [place] % (Auto) 7.5 Eos % (Auto) 4.5 H Baso % (Auto) 0.9 Neut # 4.9 Lymph # 1.3 [place] # 0.5 Eos # 0.3 Baso # 0.1 Sodium Potassium Chloride Carbon Dioxide Anion Gap BUN Creatinine Est GFR ( Amer) Est GFR (Non-Af Amer) POC Glucose (mg/dL) 124 H 253 H Random Glucose Calcium 05/05/17 11:45 WBC RBC Hgb Hct MCV MCH MCHC RDW Plt Count MPV Neut % (Auto) Lymph % (Auto) [place] % (Auto) Eos % (Auto) Baso % (Auto) Neut # Lymph # [place] # Eos # Baso # Sodium 137 Potassium 3.8 Chloride 100 Carbon Dioxide 26 Anion Gap 15 BUN 15 Creatinine 0.6 L Est GFR ( Amer) > 60 Est GFR (Non-Af Amer) > 60 POC Glucose (mg/dL) Random Glucose 264 H Calcium 9.7 Assessment & Plan (1) Acute tension-type headache Assessment and Plan: Will treat with Decadron 10 mg IV once, start Depakote 500 mg Q12 (may transition to same dose PO after IV is done for two doses), give 2 grams of magnesium sulfate IV (may be over 2 hours). Will stop Keppra since depakote will treat headache and seizure. Continue PT/OT. DVT Px. Discontinue Fioricet since this can cause medication overuse headache. Thank you. Status: Acute (2) Hypertensive emergency Status: Resolved
[2017-05-05] MEDS ORDERED: Magnesium Sulfate 2 gm/50 ml 2 GM/50 ML BAG IV ONE (13:00)
[2017-05-05] MEDS: Magnesium Oxide 400 mg Tab UD PO SCH ×2 (13:48→21:47)
[2017-05-05] MEDS: Valproate 500 MG in Sodium Chloride 0.9% 100 ML IVPB SCH ×2 (15:35→21:30)
--- NOTE | 2017-05-05 16:17 | CP.PCM.HP ---
History of Present Illness - History of Present Illness History of Present Illness: 56 YO F w/ a h/o of chronic PVD s/p right BKA, DM2 was admitted because she developed questionable right sided weakness with tonic clonic seizure, denies any loss of bowl and bladder. Was given 5 mg Versed by EMS, which was able to stop the seizure. Patient currently is able to move her upper and lower extremity denies any headache, nausea or vomiting. CT did not show any acure intracranial abnormality. CT angio showed 40-50% left ICA steonsis and right ICA widely patent. Patient was in Telemetry and did well, patient has remained seizure free since admission. Patient has been transfered to TCU. PMH: DM2, Chronic PVD, S/P BKA, htn, peripheral neuropathy SH: No illicit drug use, smoking, ETOH Med: Reviewed FH: Non contributory Allergy: Vancomycin Present on Admission - Present on Admission Any Indicators Present on Admission: Yes History of Uncontrolled Diabetes: Yes Past Patient History - Infectious Disease Hx of Infectious Diseases: None - Past Medical History & Family History Past Medical History?: Yes - Past Social History Smoking Status: Heavy Smoker > 10 Cigarettes Daily - CARDIAC Hx Cardiac Disorders: Yes Hx Congestive Heart Failure: Yes Hx Hypercholesterolemia: Yes Hx Hypertension: Yes - PULMONARY Hx Respiratory Disorders: Yes Hx Asthma: Yes - NEUROLOGICAL Hx Neurological Disorder: No - HEENT Hx HEENT Problems: No - RENAL Hx Chronic Kidney Disease: No - ENDOCRINE/METABOLIC Hx Endocrine Disorders: Yes Hx Diabetes Mellitus Type 2: Yes - HEMATOLOGICAL/ONCOLOGICAL Hx Blood Disorders: Yes Hx AIDS: No Hx Anemia: Yes Hx Human Immunodeficiency Virus (HIV): No - INTEGUMENTARY Hx Dermatological Problems: No - MUSCULOSKELETAL/RHEUMATOLOGICAL Hx Falls: No - GASTROINTESTINAL Hx Gastrointestinal Disorders: No Hx Gastroesophageal Reflux: Yes - GENITOURINARY/GYNECOLOGICAL Hx Genitourinary Disorders: No - PSYCHIATRIC Hx Anxiety: Yes Hx Depression: Yes Hx Substance Use: No - SURGICAL HISTORY Hx Appendectomy: Yes Hx Carotid Endarterectomy: Yes Hx Section: Yes (x3) Hx Cholecystectomy: Yes - ANESTHESIA Hx Anesthesia: Yes Hx Anesthesia Reactions: No Hx Malignant Hyperthermia: No Meds Allergies/Adverse Reactions: Allergies Allergy/AdvReac Type Severity Reaction Status Date / Time vancomycin AdvReac ITCHING Verified 05/22/16 13:09 Results - Vital Signs Recent Vital Signs: Last Vital Signs Temp 97.3 F L 10/17/17 08:03 Pulse 70 05/05/17 09:47 Resp 20 05/05/17 08:03 BP 96/42 L 05/05/17 14:17 Pulse Ox 100 05/05/17 08:03 - Labs Result Diagrams: 05/05/17 11:45 05/05/17 11:45 Labs: Laboratory Results - last 24 hr 05/05/17 05/05/17 05/05/17 06:36 10:42 11:45 WBC 7.1 RBC 4.89 Hgb 14.7 Hct 43.5 MCV 88.9 D MCH 30.1 MCHC 33.9 RDW 16.7 H Plt Count 150 MPV 10.4 Neut % (Auto) 68.6 Lymph % (Auto) 18.5 L [place] % (Auto) 7.5 Eos % (Auto) 4.5 H Baso % (Auto) 0.9 Neut # 4.9 Lymph # 1.3 [place] # 0.5 Eos # 0.3 Baso # 0.1 Sodium Potassium Chloride Carbon Dioxide Anion Gap BUN Creatinine Est GFR ( Amer) Est GFR (Non-Af Amer) POC Glucose (mg/dL) 124 H 253 H Random Glucose Calcium 05/05/17 05/05/17 11:45 15:52 WBC RBC Hgb Hct MCV MCH MCHC RDW Plt Count MPV Neut % (Auto) Lymph % (Auto) [place] % (Auto) Eos % (Auto) Baso % (Auto) Neut # Lymph # [place] # Eos # Baso # Sodium 137 Potassium 3.8 Chloride 100 Carbon Dioxide 26 Anion Gap 15 BUN 15 Creatinine 0.6 L Est GFR ( Amer) > 60 Est GFR (Non-Af Amer) > 60 POC Glucose (mg/dL) 288 H Random Glucose 264 H Calcium 9.7 Assessment & Plan - Assessment and Plan (Free Text) Assessment: 1) New onset of tonic clonic seizure most likely secondary to hypertensive urgency - MRI showed white matter edema within subcortical and deep white matter of both hemisphere left greater then right, no acute infarct - Patients blood pressure on admission was systolic in the 200's. - Neuro consult appreciated - continue with neuro recommendations 2) Peripheral neuropathy - Lyrica and Cymbalta 3) DM 2 - Januvia - sliding scale 4) Hyperlipidemia - Pravastatin 5) HTN - Lisinopril 20 mg - Norvasc 5mg 5) DVT prophylaxis Lovenox - Date & Time Time: 07:00
[2017-05-05] MEDS: Insulin Detemir 100 Units/ml Inj SC SCH (21:41)
[2017-05-05] MEDS: Pravastatin Sodium 40 MG TAB PO SCH (21:47)
[2017-05-05] MEDS ORDERED: Patient's Own Med (Insulin Detemir [Levemir] 10 UNIT) SC SCH (22:00)
[2017-05-06] MEDS: Insulin Regular 100 units/ml SC SCH ×4 (06:36→21:09)
[2017-05-06] MEDS ORDERED: Insulin Lispro Mix 75/25 100 units/ml (HumaLog) 10ml SC SCH (07:30)
[2017-05-06] MEDS: Valproate 500 MG in Sodium Chloride 0.9% 100 ML IVPB SCH ×2 (08:30→21:07)
[2017-05-06] MEDS: Magnesium Oxide 400 mg Tab UD PO SCH ×2 (08:31→21:09)
[2017-05-06] MEDS: GlipiZIDE 5 mg SR Tab PO SCH ×2 (08:32→16:40)
[2017-05-06] MEDS: Pantoprazole 40 mg EC Tab PO SCH (08:33)
--- NOTE | 2017-05-06 09:16 | CP.PCM.PN ---
Subjective - Date & Time of Evaluation Date of Evaluation: 05/06/17 Time of Evaluation: 10:07 - Subjective Subjective: - Patient is seen resting comfortably at bedside toay. Yesterday patient had had severe headache w/ nausea and vomiting. Her blood pressure was noted to be systolic in the 180's. An RESIDENCE DIRECTOR was called and patient was given Hydralazine x 2. Patients blood pressure was controlled. - Today patient appears to be doing well. Slept well denies any headache, blurring of vision , nausea or vomiting. Objective - Vital Signs/Intake and Output Vital Signs (last 24 hours): Temp Pulse Resp BP Pulse Ox 97.9 F 65 20 150/67 99 05/06/17 07:56 05/06/17 08:32 05/06/17 07:56 05/06/17 08:32 05/06/17 07:56 - Medications Medications: Current Medications Amlodipine Besylate (Norvasc) 5 mg PO DAILY [facility] Last Admin: 05/05/17 09:47 Dose: 5 mg Aspirin (Ecotrin) 81 mg PO DAILY [facility] Last Admin: 05/06/17 08:33 Dose: 81 mg Clopidogrel Bisulfate (Plavix) 75 mg PO DAILY [facility] Last Admin: 05/06/17 08:31 Dose: 75 mg Duloxetine HCl (Cymbalta) 30 mg PO HS [facility] Last Admin: 05/05/17 21:39 Dose: 30 mg Ferrous Sulfate (Feosol) 325 mg PO BID [facility] Last Admin: 05/06/17 08:31 Dose: 325 mg Glipizide (Glucotrol Xl) 5 mg PO BID [facility] Last Admin: 05/06/17 08:32 Dose: 5 mg Valproate Sodium 500 mg/ (Sodium Chloride) 105 mls @ 0 mls/hr IVPB Q12 [facility] PRN Reason: As Directed Last Admin: 05/06/17 08:30 Dose: 500 mls/hr Insulin Detemir (Levemir) 10 units SC HS [facility] Last Admin: 05/05/17 21:41 Dose: 10 units Insulin Human Regular (Humulin R) 0 units SC ACHS [facility] PRN Reason: Protocol Last Admin: 05/06/17 06:36 Dose: 4 units Insulin Lispro Protam/Lispro Human (Humalog Mix 75/25) [facility] Last Admin: 05/06/17 07:57 Dose: 20 units Lisinopril (Zestril) 20 mg PO DAILY [facility] Last Admin: 05/06/17 08:32 Dose: 20 mg Magnesium Oxide (Mag-Ox) 400 mg PO Q12 [facility] Last Admin: 05/06/17 08:31 Dose: 400 mg Ondansetron HCl (Zofran Inj) 4 mg IVP Q6 PRN PRN Reason: Nausea/Vomiting Last Admin: 05/05/17 09:47 Dose: 4 mg Pantoprazole Sodium (Protonix Ec Tab) 40 mg PO DAILY [facility] Last Admin: 05/06/17 08:33 Dose: 40 mg Pravastatin Sodium (Pravachol) 40 mg PO HS [facility] Last Admin: 05/05/17 21:47 Dose: 40 mg Pregabalin (Lyrica) 100 mg PO TID [facility] Last Admin: 05/06/17 08:32 Dose: 100 mg Sitagliptin Phosphate (Januvia) 100 mg PO DAILY [facility] Last Admin: 05/06/17 08:32 Dose: 100 mg - Labs Labs: 05/05/17 11:45 05/05/17 11:45 - Constitutional Appears: No Acute Distress - Head Exam Head Exam: NORMAL INSPECTION - Respiratory Exam Respiratory Exam: Clear to Ausculation Bilateral, NORMAL BREATHING PATTERN. absent: Rhonchi, Wheezes - Cardiovascular Exam Cardiovascular Exam: REGULAR RHYTHM, +S1, +S2 - GI/Abdominal Exam GI & Abdominal Exam: Soft, Normal Bowel Sounds. absent: Tenderness - Neurological Exam Neurological Exam: Alert, Awake, CN II-XII Intact, Normal Gait, Oriented x3 - Skin Skin Exam: Normal Color, Warm Assessment and Plan - Assessment and Plan (Free Text) Assessment: 1) New onset of tonic clonic seizure most likely secondary to hypertensive urgency - MRI showed white matter edema within subcortical and deep white matter of both hemisphere left greater then right, no acute infarct - Patients blood pressure on admission was systolic in the 200's. - Neuro consult appreciated - continue with neuro recommendations 2) HTN - Linopril 20mg - Norvasc 5 mg 3) Peripheral neuropathy - Lyrica and Cymbalta 4) DM 2 - Januvia - sliding scale 5) Hyperlipidemia - Pravastatin 6) HTN - Lisinopril 20 mg - Norvasc 5mg 7) DVT prophylaxis Lovenox
--- NOTE | 2017-05-06 11:26 | CP.PCM.PN ---
Subjective - Date & Time of Evaluation Date of Evaluation: 05/06/17 Time of Evaluation: 11:23 - Subjective Subjective: Ms. Grove was seen and examined at the bedside. She is alert and denies any headache, dizziness, blurred vision, weakness, numbness, nausea, or vomiting. She claims of feeling much better in comparison from yesterday.There was no untoward events overnight. Objective - Vital Signs/Intake and Output Vital Signs (last 24 hours): Temp Pulse Resp BP Pulse Ox 97.9 F 81 20 150/67 99 05/06/17 07:56 05/06/17 10:17 05/06/17 07:56 05/06/17 09:36 05/06/17 07:56 - Medications Medications: Current Medications Amlodipine Besylate (Norvasc) 5 mg PO DAILY [facility] Last Admin: 05/06/17 09:36 Dose: 5 mg Aspirin (Ecotrin) 81 mg PO DAILY [facility] Last Admin: 05/06/17 08:33 Dose: 81 mg Clopidogrel Bisulfate (Plavix) 75 mg PO DAILY [facility] Last Admin: 05/06/17 08:31 Dose: 75 mg Duloxetine HCl (Cymbalta) 30 mg PO HS [facility] Last Admin: 05/05/17 21:39 Dose: 30 mg Ferrous Sulfate (Feosol) 325 mg PO BID [facility] Last Admin: 05/06/17 08:31 Dose: 325 mg Glipizide (Glucotrol Xl) 5 mg PO BID [facility] Last Admin: 05/06/17 08:32 Dose: 5 mg Valproate Sodium 500 mg/ (Sodium Chloride) 105 mls @ 0 mls/hr IVPB Q12 [facility] PRN Reason: As Directed Last Admin: 05/06/17 08:30 Dose: 500 mls/hr Insulin Detemir (Levemir) 10 units SC HS [facility] Last Admin: 05/05/17 21:41 Dose: 10 units Insulin Human Regular (Humulin R) 0 units SC ACHS [facility] PRN Reason: Protocol Last Admin: 05/06/17 06:36 Dose: 4 units Insulin Lispro Protam/Lispro Human (Humalog Mix 75/25) 20 units SC BIDAC [facility] Last Admin: 05/06/17 07:57 Dose: 20 units Lisinopril (Zestril) 20 mg PO DAILY [facility] Last Admin: 05/06/17 08:32 Dose: 20 mg Magnesium Oxide (Mag-Ox) 400 mg PO Q12 [facility] Last Admin: 05/06/17 08:31 Dose: 400 mg Ondansetron HCl (Zofran Inj) 4 mg IVP Q6 PRN PRN Reason: Nausea/Vomiting Last Admin: 05/05/17 09:47 Dose: 4 mg Pantoprazole Sodium (Protonix Ec Tab) 40 mg PO DAILY [facility] Last Admin: 05/06/17 08:33 Dose: 40 mg Pravastatin Sodium (Pravachol) 40 mg PO HS [facility] Last Admin: 05/05/17 21:47 Dose: 40 mg Pregabalin (Lyrica) 100 mg PO TID [facility] Last Admin: 05/06/17 08:32 Dose: 100 mg Sitagliptin Phosphate (Januvia) 100 mg PO DAILY [facility] Last Admin: 05/06/17 08:32 Dose: 100 mg - Labs Labs: 05/05/17 11:45 05/05/17 11:45 - Constitutional Appears: Well, No Acute Distress - Head Exam Head Exam: ATRAUMATIC, NORMAL INSPECTION, NORMOCEPHALIC - Neurological Exam Neurological Exam: Alert, Awake, CN II-XII Intact, Oriented x3 Neuro motor strength exam: Left Upper Extremity: 5, Right Upper Extremity: 5, Left Lower Extremity: 5, Right Lower Extremity: 5 Additional comments: Neurological improved from previous examination. She is able to response appropriately to all question and follows commands.sensation remains intact. Assessment and Plan (1) Acute tension-type headache Assessment & Plan: Case discussed with Dr. Tinajero, Continue all current medical, physical, and occupational therapies. There is no new recommendations from neurology. Status: Resolved
[2017-05-06] MEDS: Insulin Lispro Mix 75/25 100 units/ml (HumaLog) 10ml SC SCH (16:41)
[2017-05-06] MEDS: Pravastatin Sodium 40 MG TAB PO SCH (21:08)
[2017-05-06] MEDS: Insulin Detemir 100 Units/ml Inj SC SCH (21:09)
[2017-05-07] MEDS: Insulin Regular 100 units/ml SC SCH ×4 (06:45→21:30)
[2017-05-07] MEDS: Insulin Lispro Mix 75/25 100 units/ml (HumaLog) 10ml SC SCH ×2 (08:03→16:50)
[2017-05-07] MEDS: Pantoprazole 40 mg EC Tab PO SCH (08:08)
[2017-05-07] MEDS: Magnesium Oxide 400 mg Tab UD PO SCH ×2 (08:08→22:30)
[2017-05-07] MEDS: GlipiZIDE 5 mg SR Tab PO SCH ×2 (08:08→17:00)
[2017-05-07] MEDS: Valproate 500 MG in Sodium Chloride 0.9% 100 ML IVPB SCH (10:43)
--- NOTE | 2017-05-07 11:59 | CP.PCM.PN ---
Subjective - Date & Time of Evaluation Date of Evaluation: 05/07/17 Time of Evaluation: 11:57 - Subjective Subjective: Ms. Grove was seen and examined at the bedside. She is alert, oriented in all spheres. She denies any headache, dizziness, weakness, numbness, nausea, or vomiting.She claims of feeling much better since her incident. There was no untoward events overnight. Objective - Vital Signs/Intake and Output Vital Signs (last 24 hours): Temp Pulse Resp BP Pulse Ox 97.5 F L 72 20 153/55 H 99 05/07/17 07:56 05/07/17 08:08 05/07/17 07:56 05/07/17 08:08 05/07/17 07:56 - Medications Medications: Current Medications Amlodipine Besylate (Norvasc) 5 mg PO DAILY [facility] Last Admin: 05/07/17 08:08 Dose: 5 mg Aspirin (Ecotrin) 81 mg PO DAILY [facility] Last Admin: 05/07/17 08:08 Dose: 81 mg Clopidogrel Bisulfate (Plavix) 75 mg PO DAILY [facility] Last Admin: 05/07/17 08:09 Dose: 75 mg Duloxetine HCl (Cymbalta) 30 mg PO HS [facility] Last Admin: 05/06/17 21:08 Dose: 30 mg Ferrous Sulfate (Feosol) 325 mg PO BID [facility] Last Admin: 05/07/17 08:07 Dose: 325 mg Glipizide (Glucotrol Xl) 5 mg PO BID [facility] Last Admin: 05/07/17 08:08 Dose: 5 mg Valproate Sodium 500 mg/ (Sodium Chloride) 105 mls @ 0 mls/hr IVPB Q12 [facility] PRN Reason: As Directed Last Admin: 05/07/17 10:43 Dose: 100 mls/hr Insulin Detemir (Levemir) 10 units SC HS [facility] Last Admin: 05/06/17 21:09 Dose: 10 units Insulin Human Regular (Humulin R) 0 units SC ACHS [facility] PRN Reason: Protocol Last Admin: 05/07/17 11:40 Dose: 2 units Insulin Lispro Protam/Lispro Human (Humalog Mix 75/25) 22 units SC BIDAC [facility] Last Admin: 05/07/17 08:03 Dose: 22 units Lisinopril (Zestril) 20 mg PO DAILY [facility] Last Admin: 05/07/17 08:07 Dose: 20 mg Magnesium Oxide (Mag-Ox) 400 mg PO Q12 [facility] Last Admin: 05/07/17 08:08 Dose: 400 mg Pantoprazole Sodium (Protonix Ec Tab) 40 mg PO DAILY [facility] Last Admin: 05/07/17 08:08 Dose: 40 mg Pravastatin Sodium (Pravachol) 40 mg PO HS [facility] Last Admin: 05/06/17 21:08 Dose: 40 mg Pregabalin (Lyrica) 100 mg PO TID [facility] Last Admin: 05/07/17 08:15 Dose: 100 mg Sitagliptin Phosphate (Januvia) 100 mg PO DAILY [facility] Last Admin: 05/07/17 08:08 Dose: 100 mg - Labs Labs: 05/05/17 11:45 05/05/17 11:45 - Constitutional Appears: No Acute Distress - Head Exam Head Exam: ATRAUMATIC, NORMAL INSPECTION, NORMOCEPHALIC - Neurological Exam Neurological Exam: Alert, Awake, CN II-XII Intact, Oriented x3 Neuro motor strength exam: Left Upper Extremity: 5, Right Upper Extremity: 5, Left Lower Extremity: 5, Right Lower Extremity: 5 Additional comments: Neurological improved from previous examination. Assessment and Plan (1) Acute tension-type headache Assessment & Plan: Case discussed with Jesus Martin dose change form 500 mg IV every 12 hours to 750 mg PO BID. Continue all current medical, physical, occupational therapies. Status: Resolved
--- NOTE | 2017-05-07 13:21 | CP.PCM.PN ---
Subjective - Date & Time of Evaluation Date of Evaluation: 05/07/17 Time of Evaluation: 08:00 - Subjective Subjective: Patient appears to be doing well. Denies any overnight events. Denies headache nausea, vomiting. Blood pressure has remained controlled. Objective - Vital Signs/Intake and Output Vital Signs (last 24 hours): Temp Pulse Resp BP Pulse Ox 97.5 F L 72 20 153/55 H 99 05/07/17 07:56 05/07/17 08:08 05/07/17 07:56 05/07/17 08:08 05/07/17 07:56 - Medications Medications: Current Medications Amlodipine Besylate (Norvasc) 5 mg PO DAILY [facility] Last Admin: 05/07/17 08:08 Dose: 5 mg Aspirin (Ecotrin) 81 mg PO DAILY [facility] Last Admin: 05/07/17 08:08 Dose: 81 mg Clopidogrel Bisulfate (Plavix) 75 mg PO DAILY [facility] Last Admin: 05/07/17 08:09 Dose: 75 mg Divalproex Sodium (Depakote Dr(*Bid*)) 750 mg PO BID [facility] Duloxetine HCl (Cymbalta) 30 mg PO HS [facility] Last Admin: 05/06/17 21:08 Dose: 30 mg Ferrous Sulfate (Feosol) 325 mg PO BID [facility] Last Admin: 05/07/17 08:07 Dose: 325 mg Glipizide (Glucotrol Xl) 5 mg PO BID [facility] Last Admin: 05/07/17 08:08 Dose: 5 mg Insulin Detemir (Levemir) 10 units SC [facility] Last Admin: 05/06/17 21:09 Dose: 10 units Insulin Human Regular (Humulin R) 0 units SC [facility] PRN Reason: Protocol Last Admin: 05/07/17 11:40 Dose: 2 units Insulin Lispro Protam/Lispro Human (Humalog Mix 75/25) 22 units SC BIDAC [facility] Last Admin: 05/07/17 08:03 Dose: 22 units Lisinopril (Zestril) 20 mg PO DAILY [facility] Last Admin: 05/07/17 08:07 Dose: 20 mg Magnesium Oxide (Mag-Ox) 400 mg PO Q12 [facility] Last Admin: 05/07/17 08:08 Dose: 400 mg Pantoprazole Sodium (Protonix Ec Tab) 40 mg PO DAILY [facility] Last Admin: 05/07/17 08:08 Dose: 40 mg Pravastatin Sodium (Pravachol) 40 mg PO HS [facility] Last Admin: 05/06/17 21:08 Dose: 40 mg Pregabalin (Lyrica) 100 mg PO TID [facility] Last Admin: 05/07/17 13:14 Dose: 100 mg Sitagliptin Phosphate (Januvia) 100 mg PO DAILY [facility] Last Admin: 05/07/17 08:08 Dose: 100 mg - Labs Labs: 05/05/17 11:45 05/05/17 11:45 - Constitutional Appears: No Acute Distress - Head Exam Head Exam: NORMAL INSPECTION - Eye Exam Eye Exam: Normal appearance - Respiratory Exam Respiratory Exam: Clear to Ausculation Bilateral, NORMAL BREATHING PATTERN. absent: Rhonchi, Wheezes - Cardiovascular Exam Cardiovascular Exam: REGULAR RHYTHM, +S1, +S2 - GI/Abdominal Exam GI & Abdominal Exam: Soft, Normal Bowel Sounds. absent: Tenderness - Neurological Exam Neurological Exam: Alert, Awake, CN II-XII Intact, Oriented x3 Assessment and Plan - Assessment and Plan (Free Text) Assessment: 1) New onset of tonic clonic seizure most likely secondary to hypertensive urgency - MRI showed white matter edema within subcortical and deep white matter of both hemisphere left greater then right, no acute infarct - Patients blood pressure on admission was systolic in the 200's. - Neuro consult appreciated - continue with neuro recommendations - Depakote 750 PO BID 2) HTN - Linopril 20mg - Norvasc 5 mg 3) Peripheral neuropathy - Lyrica and Cymbalta 4) DM 2 - Januvia - Glipizide - sliding scale - Lispro 22 units BIDAC 5) Hyperlipidemia - Pravastatin 6) HTN - Lisinopril 20 mg - Norvasc 5mg 7) DVT prophylaxis Lovenox
[2017-05-07] MEDS: Divalproex 250 mg DR(BID formulation) PO SCH (16:52)
--- NOTE | 2017-05-07 18:51 | CP.PCM.CON ---
History of Present Illness - History of Present Illness History of Present Illness: 56 year old female with PMH of DM type 2, Asthma, HTN, Depression and recent BKA of right leg is consulted for increasing left foot callus. Patient is seen out of bed in a wheelchair. Patient reports the callus has gotten thicker and would like the left foot evaluated. She reports concerns that she does not want what happened to her right leg to happen to her left. She reports no pain. She denies n/v/sob/cp/chills or f. No other pedal complaints at this time. Past Patient History - Infectious Disease Hx of Infectious Diseases: None - Past Medical History & Family History Past Medical History?: Yes - Past Social History Smoking Status: Heavy Smoker > 10 Cigarettes Daily - CARDIAC Hx Cardiac Disorders: Yes Hx Congestive Heart Failure: Yes Hx Hypercholesterolemia: Yes Hx Hypertension: Yes - PULMONARY Hx Respiratory Disorders: Yes Hx Asthma: Yes - NEUROLOGICAL Hx Neurological Disorder: No - HEENT Hx HEENT Problems: No - RENAL Hx Chronic Kidney Disease: No - ENDOCRINE/METABOLIC Hx Diabetes Mellitus Type 2: Yes - HEMATOLOGICAL/ONCOLOGICAL Hx Blood Disorders: Yes Hx AIDS: No Hx Anemia: Yes Hx Human Immunodeficiency Virus (HIV): No - INTEGUMENTARY Hx Dermatological Problems: No - MUSCULOSKELETAL/RHEUMATOLOGICAL Hx Falls: No - GASTROINTESTINAL Hx Gastrointestinal Disorders: No Hx Gastroesophageal Reflux: Yes - GENITOURINARY/GYNECOLOGICAL Hx Genitourinary Disorders: No - PSYCHIATRIC Hx Anxiety: Yes Hx Depression: Yes Hx Substance Use: No - SURGICAL HISTORY Hx Appendectomy: Yes Hx Carotid Endarterectomy: Yes Hx Section: Yes (x3) Hx Cholecystectomy: Yes - ANESTHESIA Hx Anesthesia: Yes Hx Anesthesia Reactions: No Hx Malignant Hyperthermia: No Meds Allergies/Adverse Reactions: Allergies Allergy/AdvReac Type Severity Reaction Status Date / Time vancomycin AdvReac ITCHING Verified 05/22/16 13:09 - Medications Medications: Current Medications Amlodipine Besylate (Norvasc) 5 mg PO DAILY [facility] Last Admin: 05/07/17 08:08 Dose: 5 mg Aspirin (Ecotrin) 81 mg PO DAILY [facility] Last Admin: 05/07/17 08:08 Dose: 81 mg Clopidogrel Bisulfate (Plavix) 75 mg PO DAILY [facility] Last Admin: 05/07/17 08:09 Dose: 75 mg Divalproex Sodium (Depakote Dr(*Bid*)) 750 mg PO BID [facility] Last Admin: 05/07/17 16:52 Dose: 750 mg Duloxetine HCl (Cymbalta) 30 mg PO HS [facility] Last Admin: 05/06/17 21:08 Dose: 30 mg Ferrous Sulfate (Feosol) 325 mg PO BID [facility] Last Admin: 05/07/17 16:51 Dose: 325 mg Glipizide (Glucotrol Xl) 5 mg PO BID [facility] Last Admin: 05/07/17 17:00 Dose: 5 mg Insulin Detemir (Levemir) 10 units SC HS [facility] Last Admin: 05/06/17 21:09 Dose: 10 units Insulin Human Regular (Humulin R) 0 units SC [facility] PRN Reason: Protocol Last Admin: 05/07/17 16:50 Dose: 2 units Insulin Lispro Protam/Lispro Human (Humalog Mix 75/25) 22 units SC BIDAC [facility] Last Admin: 05/07/17 16:50 Dose: 22 units Lisinopril (Zestril) 20 mg PO DAILY [facility] Last Admin: 05/07/17 08:07 Dose: 20 mg Magnesium Oxide (Mag-Ox) 400 mg PO Q12 [facility] Last Admin: 05/07/17 08:08 Dose: 400 mg Pantoprazole Sodium (Protonix Ec Tab) 40 mg PO DAILY [facility] Last Admin: 05/07/17 08:08 Dose: 40 mg Pravastatin Sodium (Pravachol) 40 mg PO HS [facility] Last Admin: 05/06/17 21:08 Dose: 40 mg Pregabalin (Lyrica) 100 mg PO TID [facility] Last Admin: 05/07/17 17:14 Dose: 100 mg Sitagliptin Phosphate (Januvia) 100 mg PO DAILY [facility] Last Admin: 05/07/17 08:08 Dose: 100 mg Physical Exam - Constitutional Appears: Well, Non-toxic, No Acute Distress - Extremities Exam Additional comments: Left focused exam: Vasc: DP and PT 1/4 bilaterally, CFT < 3 seconds, temperature cool to cool, no edema noted Ortho: MM is 5/5 in all four compartments: dorsiflexion, plantarflexion, inversion and eversion. Mild pain elicited with palpation of the plantar plate x5 Neuro: protective sensation diminished Derm: Hyperkeratotic callus measuring approximately 2cm x 2cm noted to sub met 2 L foot. No open lesions, no clinical signs of infection. Skin WNL, color wnl, nails wnl. - Neurological Exam Neurological exam: Alert, Oriented x3 Results - Vital Signs Recent Vital Signs: Last Vital Signs Temp 97.5 F L 05/07/17 16:25 Pulse 74 05/07/17 16:25 Resp 20 05/07/17 16:25 BP 122/64 05/07/17 16:25 Pulse Ox 97 05/07/17 16:25 - Labs Result Diagrams: 05/05/17 11:45 05/05/17 11:45 Labs: Laboratory Results - last 24 hr 05/06/17 05/07/17 05/07/17 20:36 05:57 08:10 POC Glucose (mg/dL) 235 H 233 H Valproic Acid 24.9 L 05/07/17 05/07/17 11:02 15:52 POC Glucose (mg/dL) 169 H 179 H Valproic Acid Assessment & Plan - Assessment and Plan (Free Text) Assessment: 56 year old female with PMH of DM type 2, Asthma, HTN, Depression and recent BKA of right leg with left sub met 2 callus secondary to pressure Plan: Patient examined and evaluated. All questions/concerns addressed. Charts, labs, vitals reviewed. Discussed plan in detail with attending Natasha Left sub met 2 callus/hykeratotic lesion was debrided using a #15 blade until the level of healthy epithelial skin is reached. No complications. Patient tolerated the procedure well Apply hydrin cream to the affected area. Avoid interspaces. Recommend getting fitted for customed diabetic shoes F/U will Dr. Kaur as needed if callus persist when discharge Thank you for the consult Re-consult as needed.
[2017-05-07] MEDS: Pravastatin Sodium 40 MG TAB PO SCH (21:30)
[2017-05-07] MEDS: Insulin Detemir 100 Units/ml Inj SC SCH (21:30)
[2017-05-08] MEDS: Insulin Regular 100 units/ml SC SCH ×4 (06:39→21:17)
[2017-05-08] MEDS: Insulin Lispro Mix 75/25 100 units/ml (HumaLog) 10ml SC SCH ×2 (09:30→16:55)
[2017-05-08] MEDS: GlipiZIDE 5 mg SR Tab PO SCH ×2 (10:07→16:56)
[2017-05-08] MEDS: Divalproex 250 mg DR(BID formulation) PO SCH ×2 (10:09→16:55)
[2017-05-08] MEDS: Magnesium Oxide 400 mg Tab UD PO SCH ×2 (10:09→21:18)
[2017-05-08] MEDS: Pantoprazole 40 mg EC Tab PO SCH (10:09)
--- NOTE | 2017-05-08 10:56 | CP.PCM.PN ---
Subjective - Date & Time of Evaluation Date of Evaluation: 05/08/17 Time of Evaluation: 10:54 - Subjective Subjective: Ms. Grove was seen and examined at the bedside. She is alert, oriented in all spheres. She is up in her wheelchair.She denies any headache, dizziness, numbness, or weakness. There was no untoward events overnight. Objective - Vital Signs/Intake and Output Vital Signs (last 24 hours): Temp Pulse Resp BP Pulse Ox 97.5 F L 73 20 139/68 98 05/08/17 08:06 05/08/17 10:08 05/08/17 08:06 05/08/17 10:08 05/08/17 08:06 - Medications Medications: Current Medications Amlodipine Besylate (Norvasc) 5 mg PO DAILY [facility] Last Admin: 05/08/17 10:08 Dose: 5 mg Aspirin (Ecotrin) 81 mg PO DAILY [facility] Last Admin: 05/08/17 10:08 Dose: 81 mg Clopidogrel Bisulfate (Plavix) 75 mg PO DAILY [facility] Last Admin: 05/08/17 10:07 Dose: 75 mg Divalproex Sodium (Depakote Dr(*Bid*)) 750 mg PO BID [facility] Last Admin: 05/08/17 10:09 Dose: 750 mg Duloxetine HCl (Cymbalta) 30 mg PO HS [facility] Last Admin: 05/07/17 21:30 Dose: 30 mg Ferrous Sulfate (Feosol) 325 mg PO BID [facility] Last Admin: 05/08/17 10:07 Dose: 325 mg Glipizide (Glucotrol Xl) 5 mg PO BID [facility] Last Admin: 05/08/17 10:07 Dose: 5 mg Insulin Detemir (Levemir) 10 units SC HS [facility] Last Admin: 05/07/17 21:30 Dose: 10 units Insulin Human Regular (Humulin R) 0 units SC [facility] PRN Reason: Protocol Last Admin: 05/08/17 06:39 Dose: Not Given Insulin Lispro Protam/Lispro Human (Humalog Mix 75/25) 22 units SC BIDAC [facility] Last Admin: 05/08/17 09:30 Dose: 22 units Lisinopril (Zestril) 20 mg PO DAILY [facility] Last Admin: 05/08/17 10:08 Dose: 20 mg Magnesium Oxide (Mag-Ox) 400 mg PO Q12 [facility] Last Admin: 05/08/17 10:09 Dose: 400 mg Pantoprazole Sodium (Protonix Ec Tab) 40 mg PO DAILY [facility] Last Admin: 05/08/17 10:09 Dose: 40 mg Pravastatin Sodium (Pravachol) 40 mg PO HS [facility] Last Admin: 05/07/17 21:30 Dose: 40 mg Pregabalin (Lyrica) 100 mg PO TID [facility] Last Admin: 05/08/17 10:13 Dose: 100 mg Sitagliptin Phosphate (Januvia) 100 mg PO DAILY [facility] Last Admin: 05/08/17 10:07 Dose: 100 mg - Labs Labs: 05/05/17 11:45 05/05/17 11:45 - Constitutional Appears: No Acute Distress - Head Exam Head Exam: ATRAUMATIC, NORMAL INSPECTION, NORMOCEPHALIC - Neurological Exam Neurological Exam: Alert, Awake, CN II-XII Intact Neuro motor strength exam: Left Upper Extremity: 5, Right Upper Extremity: 5, Left Lower Extremity: 5, Right Lower Extremity: 5 Additional comments: Neurological unchanged from previous examination. Assessment and Plan (1) Acute tension-type headache Assessment & Plan: Case discussed with Dr. Tinajero, continue all current medical, physical therapies. With her valproic level of 24.9, Depakote dose was changed yesterday. There is no new recommendations from neurology. Status: Resolved
--- NOTE | 2017-05-08 12:09 | CP.PCM.PN ---
Subjective - Date & Time of Evaluation Date of Evaluation: 05/08/17 Time of Evaluation: 12:07 - Subjective Subjective: Patient is seen with Dr. Willoughby. Patient is seen in her wheelchair with PT. Patient is doing well. Has not had any episodes of headache or vomiting. Blood pressure has remained controlled. Objective - Vital Signs/Intake and Output Vital Signs (last 24 hours): Temp Pulse Resp BP Pulse Ox 97.5 F L 73 20 139/68 98 05/08/17 08:06 05/08/17 10:08 05/08/17 08:06 05/08/17 10:08 05/08/17 08:06 - Medications Medications: Current Medications Amlodipine Besylate (Norvasc) 5 mg PO DAILY [facility] Last Admin: 05/08/17 10:08 Dose: 5 mg Aspirin (Ecotrin) 81 mg PO DAILY [facility] Last Admin: 05/08/17 10:08 Dose: 81 mg Clopidogrel Bisulfate (Plavix) 75 mg PO DAILY [facility] Last Admin: 05/08/17 10:07 Dose: 75 mg Divalproex Sodium (Depakote Dr(*Bid*)) 750 mg PO BID [facility] Last Admin: 05/08/17 10:09 Dose: 750 mg Duloxetine HCl (Cymbalta) 30 mg PO HS [facility] Last Admin: 05/07/17 21:30 Dose: 30 mg Ferrous Sulfate (Feosol) 325 mg PO BID [facility] Last Admin: 05/08/17 10:07 Dose: 325 mg Glipizide (Glucotrol Xl) 5 mg PO BID [facility] Last Admin: 05/08/17 10:07 Dose: 5 mg Insulin Detemir (Levemir) 10 units SC [facility] Last Admin: 05/07/17 21:30 Dose: 10 units Insulin Human Regular (Humulin R) 0 units SC [facility] PRN Reason: Protocol Last Admin: 05/08/17 06:39 Dose: Not Given Insulin Lispro Protam/Lispro Human (Humalog Mix 75/25) 22 units SC BIDAC [facility] Last Admin: 05/08/17 09:30 Dose: 22 units Lisinopril (Zestril) 20 mg PO DAILY [facility] Last Admin: 05/08/17 10:08 Dose: 20 mg Magnesium Oxide (Mag-Ox) 400 mg PO Q12 [facility] Last Admin: 05/08/17 10:09 Dose: 400 mg Pantoprazole Sodium (Protonix Ec Tab) 40 mg PO DAILY [facility] Last Admin: 05/08/17 10:09 Dose: 40 mg Pravastatin Sodium (Pravachol) 40 mg PO HS [facility] Last Admin: 05/07/17 21:30 Dose: 40 mg Pregabalin (Lyrica) 100 mg PO TID [facility] Last Admin: 05/08/17 10:13 Dose: 100 mg Sitagliptin Phosphate (Januvia) 100 mg PO DAILY [facility] Last Admin: 05/08/17 10:07 Dose: 100 mg - Labs Labs: 05/05/17 11:45 05/05/17 11:45 - Constitutional Appears: No Acute Distress - Head Exam Head Exam: NORMAL INSPECTION - Respiratory Exam Respiratory Exam: Clear to Ausculation Bilateral. absent: Wheezes, Respiratory Distress, Stridor - Cardiovascular Exam Cardiovascular Exam: REGULAR RHYTHM, +S1, +S2 - GI/Abdominal Exam GI & Abdominal Exam: Soft, Normal Bowel Sounds. absent: Tenderness - Neurological Exam Neurological Exam: Alert, Awake, CN II-XII Intact, Oriented x3 - Skin Skin Exam: Normal Color, Warm Assessment and Plan - Assessment and Plan (Free Text) Assessment: 1) New onset of tonic clonic seizure most likely secondary to hypertensive urgency - MRI showed white matter edema within subcortical and deep white matter of both hemisphere left greater then right, no acute infarct - Patients blood pressure on admission was systolic in the 200's. - Neuro consult appreciated - continue with neuro recommendations - Depakote 750 PO BID 2) HTN - Linopril 20mg - Norvasc 5 mg 3) Peripheral neuropathy - Lyrica and Cymbalta 4) DM 2 - Januvia - Glipizide - sliding scale - Lispro 22 units BIDAC 5) Hyperlipidemia - Pravastatin 6) HTN - Lisinopril 20 mg - Norvasc 5mg 7) DVT prophylaxis Lovenox
[2017-05-08] MEDS: Pravastatin Sodium 40 MG TAB PO SCH (21:18)
[2017-05-08] MEDS: Insulin Detemir 100 Units/ml Inj SC SCH (21:19)
[2017-05-09] MEDS: Insulin Lispro Mix 75/25 100 units/ml (HumaLog) 10ml SC SCH ×2 (07:06→17:01)
[2017-05-09] MEDS: Insulin Regular 100 units/ml SC SCH ×4 (07:08→21:14)
[2017-05-09] MEDS: Divalproex 250 mg DR(BID formulation) PO SCH ×2 (09:30→17:00)
[2017-05-09] MEDS: Pantoprazole 40 mg EC Tab PO SCH (09:30)
[2017-05-09] MEDS: GlipiZIDE 5 mg SR Tab PO SCH ×2 (09:32→17:01)
--- NOTE | 2017-05-09 10:29 | CP.PCM.PN ---
Subjective - Date & Time of Evaluation Date of Evaluation: 05/09/17 Time of Evaluation: 10:28 - Subjective Subjective: Patient remains stable. Objective - Vital Signs/Intake and Output Vital Signs (last 24 hours): Temp Pulse Resp BP Pulse Ox 97.7 F 70 20 123/54 L 100 05/09/17 09:13 05/09/17 09:32 05/09/17 09:13 05/09/17 09:32 05/09/17 09:13 - Medications Medications: Current Medications Amlodipine Besylate (Norvasc) 5 mg PO DAILY [facility] Last Admin: 05/09/17 09:32 Dose: 5 mg Aspirin (Ecotrin) 81 mg PO DAILY [facility] Last Admin: 05/09/17 09:32 Dose: 81 mg Clopidogrel Bisulfate (Plavix) 75 mg PO DAILY [facility] Last Admin: 05/09/17 09:32 Dose: 75 mg Divalproex Sodium (Depakote Dr(*Bid*)) 750 mg PO BID [facility] Last Admin: 05/09/17 09:30 Dose: 750 mg Duloxetine HCl (Cymbalta) 30 mg PO HS [facility] Last Admin: 05/08/17 21:18 Dose: 30 mg Ferrous Sulfate (Feosol) 325 mg PO BID [facility] Last Admin: 05/09/17 09:31 Dose: 325 mg Glipizide (Glucotrol Xl) 5 mg PO BID [facility] Last Admin: 05/09/17 09:32 Dose: 5 mg Insulin Detemir (Levemir) 10 units SC [facility] Last Admin: 05/08/17 21:19 Dose: 10 units Insulin Human Regular (Humulin R) 0 units SC [facility] PRN Reason: Protocol Last Admin: 05/09/17 07:08 Dose: 2 units Insulin Lispro Protam/Lispro Human (Humalog Mix 75/25) 22 units SC BIDAC [facility] Last Admin: 05/09/17 07:06 Dose: 22 units Lisinopril (Zestril) 20 mg PO DAILY [facility] Last Admin: 05/09/17 09:31 Dose: 20 mg Magnesium Oxide (Mag-Ox) 400 mg PO HS [facility] Last Admin: 05/08/17 21:18 Dose: 400 mg Pantoprazole Sodium (Protonix Ec Tab) 40 mg PO DAILY [facility] Last Admin: 05/09/17 09:30 Dose: 40 mg Pravastatin Sodium (Pravachol) 40 mg PO HS [facility] Last Admin: 05/08/17 21:18 Dose: 40 mg Pregabalin (Lyrica) 100 mg PO TID [facility] Last Admin: 05/09/17 09:31 Dose: 100 mg Sitagliptin Phosphate (Januvia) 100 mg PO DAILY [facility] Last Admin: 05/09/17 09:31 Dose: 100 mg - Labs Labs: 05/05/17 11:45 05/05/17 11:45
--- NOTE | 2017-05-09 12:31 | CP.PCM.PN ---
Subjective - Date & Time of Evaluation Date of Evaluation: 05/09/17 Time of Evaluation: 12:28 - Subjective Subjective: pt seen for follow up for DM foot care of left foot .Pt is s/p BKA right after long history of dm foot complications with non-compliance .Pt states she is determined to follow DM diet and be compliant after this incident . Objective - Vital Signs/Intake and Output Vital Signs (last 24 hours): Temp Pulse Resp BP Pulse Ox 97.7 F 70 20 123/54 L 100 05/09/17 09:13 05/09/17 09:32 05/09/17 09:13 05/09/17 09:32 05/09/17 09:13 - Medications Medications: Current Medications Amlodipine Besylate (Norvasc) 5 mg PO DAILY [facility] Last Admin: 05/09/17 09:32 Dose: 5 mg Aspirin (Ecotrin) 81 mg PO DAILY [facility] Last Admin: 05/09/17 09:32 Dose: 81 mg Clopidogrel Bisulfate (Plavix) 75 mg PO DAILY [facility] Last Admin: 05/09/17 09:32 Dose: 75 mg Divalproex Sodium (Depakote Dr(*Bid*)) 750 mg PO BID [facility] Last Admin: 05/09/17 09:30 Dose: 750 mg Duloxetine HCl (Cymbalta) 30 mg PO HS [facility] Last Admin: 05/08/17 21:18 Dose: 30 mg Ferrous Sulfate (Feosol) 325 mg PO BID [facility] Last Admin: 05/09/17 09:31 Dose: 325 mg Glipizide (Glucotrol Xl) 5 mg PO BID [facility] Last Admin: 05/09/17 09:32 Dose: 5 mg Insulin Detemir (Levemir) 10 units SC [facility] Last Admin: 05/08/17 21:19 Dose: 10 units Insulin Human Regular (Humulin R) 0 units SC [facility] PRN Reason: Protocol Last Admin: 05/09/17 12:16 Dose: 4 units Insulin Lispro Protam/Lispro Human (Humalog Mix 75/25) 22 units SC BIDAC [facility] Last Admin: 05/09/17 07:06 Dose: 22 units Lisinopril (Zestril) 20 mg PO DAILY [facility] Last Admin: 05/09/17 09:31 Dose: 20 mg Magnesium Oxide (Mag-Ox) 400 mg PO HS [facility] Last Admin: 05/08/17 21:18 Dose: 400 mg Pantoprazole Sodium (Protonix Ec Tab) 40 mg PO DAILY [facility] Last Admin: 05/09/17 09:30 Dose: 40 mg Pravastatin Sodium (Pravachol) 40 mg PO HS [facility] Last Admin: 05/08/17 21:18 Dose: 40 mg Pregabalin (Lyrica) 100 mg PO TID [facility] Last Admin: 05/09/17 09:31 Dose: 100 mg Sitagliptin Phosphate (Januvia) 100 mg PO DAILY [facility] Last Admin: 05/09/17 09:31 Dose: 100 mg - Labs Labs: 05/05/17 11:45 05/05/17 11:45 - Extremities Exam Additional comments: O/Xerosis of skin left plantar aspect with no skin break down noted. . Vascular status intact left . DM neuropathy left . Right BKA healed completely . Assessment and Plan - Assessment and Plan (Free Text) Assessment: A/Xerosis cutis left . Plan: TX /apply Lac Hydrin Cream 1% bid to left foot.
[2017-05-09] MEDS: Ammonium Lactate 12% Cream (140 g) TOP SCH (16:59)
[2017-05-09] MEDS: Insulin Detemir 100 Units/ml Inj SC SCH (21:15)
[2017-05-09] MEDS: Magnesium Oxide 400 mg Tab UD PO SCH (21:17)
[2017-05-09] MEDS: Pravastatin Sodium 40 MG TAB PO SCH (21:18)
[2017-05-10] MEDS: Insulin Regular 100 units/ml SC SCH ×4 (07:12→21:30)
[2017-05-10] MEDS: Insulin Lispro Mix 75/25 100 units/ml (HumaLog) 10ml SC SCH ×2 (07:13→17:17)
[2017-05-10] MEDS: GlipiZIDE 5 mg SR Tab PO SCH ×2 (08:18→17:17)
[2017-05-10] MEDS: Pantoprazole 40 mg EC Tab PO SCH (08:18)
[2017-05-10] MEDS: Divalproex 250 mg DR(BID formulation) PO SCH ×2 (08:19→17:16)
[2017-05-10] MEDS: Ammonium Lactate 12% Cream (140 g) TOP SCH ×2 (08:24→17:20)
--- NOTE | 2017-05-10 13:04 | CP.PCM.PN ---
Subjective - Date & Time of Evaluation Date of Evaluation: 05/10/17 Time of Evaluation: 13:03 - Subjective Subjective: Patient is doing very well Has no chest pain or SOB Has no headaches. Objective - Vital Signs/Intake and Output Vital Signs (last 24 hours): Temp Pulse Resp BP Pulse Ox 97.0 F L 76 20 156/77 H 99 05/10/17 07:51 05/10/17 08:18 05/10/17 07:51 05/10/17 08:18 05/10/17 07:51 - Medications Medications: Current Medications Acetaminophen (Tylenol 325mg Tab) 650 mg PO Q4 PRN PRN Reason: Fever >100.4 F Acetaminophen (Tylenol 325mg Tab) 650 mg PO Q4 PRN PRN Reason: Pain, moderate (4-7) Last Admin: 05/10/17 09:13 Dose: 650 mg Amlodipine Besylate (Norvasc) 5 mg PO DAILY [facility] Last Admin: 05/10/17 08:18 Dose: 5 mg Aspirin (Ecotrin) 81 mg PO DAILY [facility] Last Admin: 05/10/17 08:18 Dose: 81 mg Clopidogrel Bisulfate (Plavix) 75 mg PO DAILY [facility] Last Admin: 05/10/17 08:18 Dose: 75 mg Divalproex Sodium (Depakote Dr(*Bid*)) 750 mg PO BID [facility] Last Admin: 05/10/17 08:19 Dose: 750 mg Duloxetine HCl (Cymbalta) 30 mg PO HS [facility] Last Admin: 05/09/17 21:14 Dose: 30 mg Ferrous Sulfate (Feosol) 325 mg PO BID [facility] Last Admin: 05/10/17 08:19 Dose: 325 mg Glipizide (Glucotrol Xl) 5 mg PO BID [facility] Last Admin: 05/10/17 08:18 Dose: 5 mg Insulin Detemir (Levemir) 10 units SC [facility] Last Admin: 05/09/17 21:15 Dose: 10 units Insulin Human Regular (Humulin R) 0 units SC [facility] PRN Reason: Protocol Last Admin: 05/10/17 11:36 Dose: Not Given Insulin Lispro Protam/Lispro Human (Humalog Mix 75/25) [facility] Last Admin: 05/10/17 07:13 Dose: 22 units Lactic Acid (Lac-Hydrin 12% Cream (140 G)) 1 ea TOP BID [facility] Last Admin: 05/10/17 08:24 Dose: 1 u Lisinopril (Zestril) 20 mg PO DAILY [facility] Last Admin: 05/10/17 08:18 Dose: 20 mg Magnesium Oxide (Mag-Ox) 400 mg PO HS [facility] Last Admin: 05/09/17 21:17 Dose: 400 mg Pantoprazole Sodium (Protonix Ec Tab) 40 mg PO DAILY [facility] Last Admin: 05/10/17 08:18 Dose: 40 mg Pravastatin Sodium (Pravachol) 40 mg PO HS [facility] Last Admin: 05/09/17 21:18 Dose: 40 mg Pregabalin (Lyrica) 100 mg PO TID [facility] Last Admin: 05/10/17 12:03 Dose: 100 mg Sitagliptin Phosphate (Januvia) 100 mg PO DAILY [facility] Last Admin: 05/10/17 08:18 Dose: 100 mg - Labs Labs: 05/05/17 11:45 05/05/17 11:45
[2017-05-10 16:33] VITALS: TEMP 97.7
[2017-05-10 21:18] VITALS: O2SAT 98
[2017-05-10] MEDS: Magnesium Oxide 400 mg Tab UD PO SCH (21:29)
[2017-05-10] MEDS: Insulin Detemir 100 Units/ml Inj SC SCH (21:29)
[2017-05-10] MEDS: Pravastatin Sodium 40 MG TAB PO SCH (21:30)
[2017-05-11] MEDS: Insulin Regular 100 units/ml SC SCH (06:45)
[2017-05-11] MEDS: Insulin Lispro Mix 75/25 100 units/ml (HumaLog) 10ml SC SCH (08:01)
[2017-05-11] MEDS: Pantoprazole 40 mg EC Tab PO SCH (08:04)
[2017-05-11] MEDS: GlipiZIDE 5 mg SR Tab PO SCH (08:04)
[2017-05-11] MEDS: Divalproex 250 mg DR(BID formulation) PO SCH (08:04)
[2017-05-11 08:07] VITALS: BP 114/56; PULSE 71
[2017-05-11] MEDS: Ammonium Lactate 12% Cream (140 g) TOP SCH (08:14)
--- NOTE | 2017-05-11 08:22 | CP.PCM.DIS ---
Provider - Provider Date of Admission: 05/04/17 23:22 Attending physician: Pavel Willoughby MD Hospital Course - Lab Results Lab Results: Most Recent Lab Values WBC 7.1 K/uL (4.8-10.8) 05/05/17 11:45 RBC 4.89 Mil/uL (3.80-5.20) 05/05/17 11:45 Hgb 14.7 g/dL (12.0-16.0) 05/05/17 11:45 Hct 43.5 % (34.0-47.0) 05/05/17 11:45 MCV 88.9 fl (81.0-99.0) D 05/05/17 11:45 MCH 30.1 pg (27.0-31.0) 05/05/17 11:45 MCHC 33.9 g/dL (33.0-37.0) 05/05/17 11:45 RDW 16.7 % (11.5-14.5) H 05/05/17 11:45 Plt Count 150 K/uL (130-400) 05/05/17 11:45 MPV 10.4 fl (7.2-11.7) 05/05/17 11:45 Neut % (Auto) 68.6 % (50.0-75.0) 05/05/17 11:45 Lymph % (Auto) 18.5 % (20.0-40.0) L 05/05/17 11:45 Owsley % (Auto) 7.5 % (0.0-10.0) 05/05/17 11:45 Eos % (Auto) 4.5 % (0.0-4.0) H 05/05/17 11:45 Baso % (Auto) 0.9 % (0.0-2.0) 05/05/17 11:45 Neut # 4.9 K/uL (1.8-7.0) 05/05/17 11:45 Lymph # 1.3 K/uL (1.0-4.3) 05/05/17 11:45 Owsley # 0.5 K/uL (0.0-0.8) 05/05/17 11:45 Eos # 0.3 K/uL (0.0-0.7) 05/05/17 11:45 Baso # 0.1 K/uL (0.0-0.2) 05/05/17 11:45 Sodium 137 mmol/l (132-148) 05/05/17 11:45 Potassium 3.8 MMOL/L (3.6-5.0) 05/05/17 11:45 Chloride 100 mmol/L (98-107) 05/05/17 11:45 Carbon Dioxide 26 mmol/L (22-30) 05/05/17 11:45 Anion Gap 15 (10-20) 05/05/17 11:45 BUN 15 mg/dl (7-17) 05/05/17 11:45 Creatinine 0.6 mg/dL (0.7-1.2) L 05/05/17 11:45 Est GFR ( Amer) > 60 05/05/17 11:45 Est GFR (Non-Af Amer) > 60 05/05/17 11:45 POC Glucose (mg/dL) 102 mg/dL (65-110) 05/11/17 05:25 Random Glucose 264 mg/dL (65-105) H 05/05/17 11:45 Calcium 9.7 mg/dL (8.4-10.2) 05/05/17 11:45 Valproic Acid 24.9 ug/mL (50.0-100.0) L 05/07/17 08:10 - Hospital Course Hospital Course: This is a 56 y/ female admitted to subacute rehab TCU after hospitalization fo seizure and HTN. Discharge Exam - Head Exam Head Exam: NORMAL INSPECTION Discharge Plan - Follow Up Plan Condition: GOOD Disposition: HOME/ ROUTINE Instructions: New-Onset Seizure in Adults (DC), Fall Prevention (DC) Additional Instructions: discharge patient home. call Dr. Pavel Willoughby for followup appointment. [phone]
--- NOTE | 2017-05-11 09:46 | CP.PCM.PN ---
Subjective - Date & Time of Evaluation Date of Evaluation: 05/11/17 Time of Evaluation: 09:44 - Subjective Subjective: Ms. Grove was seen and examined at the bedside. She is alert, oriented and stated of having minimal headache yesterday. She denies any headache, dizziness , numbness, or weakness today. She is for discharge to home today. Objective - Vital Signs/Intake and Output Vital Signs (last 24 hours): Temp Pulse Resp BP Pulse Ox 97.7 F 71 20 114/56 L 98 05/11/17 08:08 05/11/17 08:08 05/11/17 08:08 05/11/17 08:08 05/11/17 08:08 - Medications Medications: Current Medications Acetaminophen (Tylenol 325mg Tab) 650 mg PO Q4 PRN PRN Reason: Fever >100.4 F Acetaminophen (Tylenol 325mg Tab) 650 mg PO Q4 PRN PRN Reason: Pain, moderate (4-7) Last Admin: 05/10/17 09:13 Dose: 650 mg Amlodipine Besylate (Norvasc) 5 mg PO DAILY [facility] Last Admin: 05/11/17 08:04 Dose: 5 mg Aspirin (Ecotrin) 81 mg PO DAILY [facility] Last Admin: 05/11/17 08:05 Dose: 81 mg Clopidogrel Bisulfate (Plavix) 75 mg PO DAILY [facility] Last Admin: 05/11/17 08:05 Dose: 75 mg Divalproex Sodium (Depakote Dr(*Bid*)) 750 mg PO BID [facility] Last Admin: 05/11/17 08:04 Dose: 750 mg Duloxetine HCl (Cymbalta) 30 mg PO [facility] Last Admin: 05/10/17 21:29 Dose: 30 mg Ferrous Sulfate (Feosol) 325 mg PO BID [facility] Last Admin: 05/11/17 08:04 Dose: 325 mg Glipizide (Glucotrol Xl) 5 mg PO BID [facility] Last Admin: 05/11/17 08:04 Dose: 5 mg Insulin Detemir (Levemir) 10 units SC [facility] Last Admin: 05/10/17 21:29 Dose: 10 units Insulin Human Regular (Humulin R) 0 units SC [facility] PRN Reason: Protocol Last Admin: 05/11/17 06:45 Dose: Not Given Insulin Lispro Protam/Lispro Human (Humalog Mix 75/25) 22 units SC BIDAC [facility] Last Admin: 05/11/17 08:01 Dose: 22 units Lactic Acid (Lac-Hydrin 12% Cream (140 G)) 1 ea TOP BID [facility] Last Admin: 05/11/17 08:14 Dose: 1 u Lisinopril (Zestril) 20 mg PO DAILY [facility] Last Admin: 05/11/17 08:04 Dose: 20 mg Magnesium Oxide (Mag-Ox) 400 mg PO HS [facility] Last Admin: 05/10/17 21:29 Dose: 400 mg Pantoprazole Sodium (Protonix Ec Tab) 40 mg PO DAILY [facility] Last Admin: 05/11/17 08:04 Dose: 40 mg Pravastatin Sodium (Pravachol) 40 mg PO HS [facility] Last Admin: 05/10/17 21:30 Dose: 40 mg Pregabalin (Lyrica) 100 mg PO TID [facility] Last Admin: 05/11/17 08:01 Dose: 100 mg Sitagliptin Phosphate (Januvia) 100 mg PO DAILY [facility] Last Admin: 05/11/17 08:05 Dose: 100 mg - Labs Labs: 05/05/17 11:45 05/05/17 11:45 - Constitutional Appears: No Acute Distress - Head Exam Head Exam: ATRAUMATIC, NORMAL INSPECTION, NORMOCEPHALIC - Neurological Exam Neurological Exam: Alert, Awake, CN II-XII Intact, Oriented x3 Neuro motor strength exam: Left Upper Extremity: 5, Right Upper Extremity: 5, Left Lower Extremity: 5, Right Lower Extremity: 5 Additional comments: Neurological unchanged from previous examination. Assessment and Plan (1) Acute tension-type headache Assessment & Plan: Case discussed with Dr. Tinajero, continue all current medical regimen and to follow up with a neurologist as an outpatient for monitoring of seizures and medication. Patient verbalizes understanding. Status: Resolved
== END 2017-05-11 11:00 | disposition home or self-care (01) | DRG 101 ==
LOC: H.TCU 23:22
PROVIDERS: ADMIT Family Medicine; ATTEND Family Medicine
PROC: F08Z4FZ Home Management Treatment using Assistive, Adaptive, Supportive or Protective Equipment (ICD-10-PCS; principal; 2017-05-04)
PROC: F07M6FZ Therapeutic Exercise Treatment of Musculoskeletal System - Whole Body using Assistive, Adaptive, Supportive or Protective Equipment (ICD-10-PCS; 2017-05-04)
PROC: 0HDNXZZ Extraction of Left Foot Skin, External Approach (ICD-10-PCS; 2017-05-07)
DX: G40.89 Other seizures (principal); I11.0 Hypertensive heart disease with heart failure; E11.42 Type 2 diabetes mellitus with diabetic polyneuropathy; E11.51 Type 2 diabetes mellitus with diabetic peripheral angiopathy without gangrene; I50.9 Heart failure, unspecified; I16.1 Hypertensive emergency; E78.00 Pure hypercholesterolemia, unspecified; E78.5 Hyperlipidemia, unspecified; G44.209 Tension-type headache, unspecified, not intractable; J45.909 Unspecified asthma, uncomplicated; K21.9 Gastro-esophageal reflux disease without esophagitis; L85.3 Xerosis cutis; Z79.899 Other long term (current) drug therapy; Z89.511 Acquired absence of right leg below knee; Z90.49 Acquired absence of other specified parts of digestive tract; Z91.19 Patient's noncompliance with other medical treatment and regimen; D64.9 Anemia, unspecified; F32.9 Major depressive disorder, single episode, unspecified; F41.9 Anxiety disorder, unspecified; R11.2 Nausea with vomiting, unspecified; R53.1 Weakness; F17.210 Nicotine dependence, cigarettes, uncomplicated; L84 Corns and callosities

== ENCOUNTER 2017-09-09 03:44 | Inpatient (IN) | payer MEDICARE, OTHER ==
[2017-09-09] MEDS ORDERED: Sodium Chloride 0.9% 1,000 ML IV STA (04:08)
[2017-09-09 04:23] LABS: VENOUS BLOOD GAS BASE EXCESS -2.4 mmol/L (0.0-2.0); VENOUS BLOOD GAS PCO2 57 mmHg (40-60); VENOUS BLOOD GAS PO2 54 mm/Hg (30-55); VENOUS BLOOD PH 7.26 (7.32-7.43)
[2017-09-09 04:41] LABS: BASO # 0.1 K/uL (0.0-0.2); BASO % 0.5 % (0.0-2.0); EOS # 0.3 K/uL (0.0-0.7); HEMOGLOBIN 12.2 g/dL (12.0-16.0); LYMPH # 2.4 K/uL (1.0-4.3); LYMPH % 16.6 % (20.0-40.0); MEAN CELL VOLUME 97.1 fl (81.0-99.0); MEAN CORPUSCULAR HEMOGLOBIN 33.4 pg (27.0-31.0); MEAN CORPUSCULAR HGB CONC 34.4 g/dL (33.0-37.0); MEAN PLATELET VOLUME 10.6 fl (7.2-11.7); MONO # 1.7 K/uL (0.0-0.8); MONO % 11.6 % (0.0-10.0); NEUT # 10.3 K/uL (1.8-7.0); NEUT % 69.3 % (50.0-75.0); NRBC % 0.2 % (0.0-0.0); RBC 3.65 Mil/uL (3.80-5.20); RED CELL DISTRIBUTION WIDTH 13.2 % (11.5-14.5); WHITE BLOOD COUNT 14.8 K/uL (4.8-10.8)
[2017-09-09 04:50] LABS: ALB/GLOB RATIO 0.8 (1.0-2.1); ALBUMIN 3.7 g/dL (3.5-5.0); CALCIUM 8.7 mg/dL (8.4-10.2); MAGNESIUM 2.3 MG/DL (1.6-2.3)
[2017-09-09 04:55] LABS: PARTIAL THROMBOPLASTIN TIME 30.1 Seconds (25.6-37.1); PROTHROMBIN TIME 11.1 Seconds (9.8-13.1)
[2017-09-09] MEDS ORDERED: Cefepime 2 GM in Sodium Chloride 0.9% 100 ML IVPB STA (04:58)
[2017-09-09] MEDS ORDERED: Naloxone 0.4 mg/ml Inj (Adult) IVP STA ×3 (04:59→08:35)
--- NOTE | 2017-09-09 05:03 | ED PDOC ---
HPI: Altered Mental Status Time Seen by Provider: 09/09/17 03:54 Chief Complaint (Nursing): Altered Mental Status Chief Complaint (Provider): Altered Mental Status History Per: EMS, Family History/Exam Limitations: Clinical Condition Onset/Duration Of Symptoms: Hrs (x4) Current Symptoms Are (Timing): Still Present Additional Complaint(s): Cora Grove is a 57 year old female with a history of diabetes, hypertension, seizure disorder, and carotid stenosis that was brought to the ED via EMS after patient developed weakness and then lethargy while at home earlier today. According to patient's family, she was last seen normal around 6 PM, and that at 12 AM, she was trying to get up to go to the bathroom and became very weak, and started calling for help. Patient's family called for EMS, and upon arrival to ED she has become increasingly tired. Patient unable to provide any further history. Past Medical History Reviewed: Historical Data, Nursing Documentation, Vital Signs Vital Signs: Last Vital Signs Temp 99.0 F 09/09/17 04:00 Pulse 95 H 09/09/17 04:00 Resp 22 09/09/17 04:00 BP 86/51 L 09/09/17 04:00 Pulse Ox 100 09/09/17 04:00 - Medical History PMH: Anemia, Anxiety, Arthritis, Asthma, Back Problems, CHF, Depression, Diabetes (type II), GERD, HTN, Hypercholesterolemia, Chronic Pain Denies: HIV, Chronic Kidney Disease, Seizures, Sexually Transmitted Disease - Surgical History Surgical History: Appendectomy, Carotid Endarterectomy, Cholecystectomy, C- Section ( x 3) - Family History Family History: States: Unknown Family Hx - Home Medications Home Medications: Ambulatory Orders Medication Instructions Recorded DULoxetine [Cymbalta] 30 mg PO HS #30 ecc 04/13/17 Ferrous Sulfate [Feosol] 325 mg PO BID #60 tab 04/13/17 GlipiZIDE SR [Glucotrol XL] 5 mg PO BID #60 tab 04/13/17 Insulin Detemir [Levemir] 10 unit SC HS #1 unit 04/13/17 Pantoprazole [Protonix EC Tab] 40 mg PO DAILY #30 ect 04/13/17 Pravastatin Sodium [Pravachol] 40 mg PO HS #30 tab 04/13/17 Pregabalin [Lyrica] 100 mg PO TID #90 cap 04/13/17 SITagliptin [Januvia] 100 mg PO DAILY #1 tab 04/13/17 Clopidogrel [Plavix] 75 mg PO DAILY tab 05/04/17 Divalproex [Depakote] 750 mg PO BID 05/11/17 Insulin Lispro Mix 75/25 [HumaLOG 22 units SQ ACBD 05/11/17 Mix 75/25] Lisinopril [Zestril] 20 mg PO DAILY 05/11/17 Magnesium Oxide [Mag-Ox] 400 mg PO HS 05/11/17 amLODIPine [Norvasc] 5 mg PO DAILY 05/11/17 - Allergies Allergies/Adverse Reactions: Allergies Allergy/AdvReac Type Severity Reaction Status Date / Time vancomycin AdvReac ITCHING Verified 09/09/17 04:39 Review of Systems Review Of Systems: ROS cannot be obtained secondary to pt's inabilty to answer questions. Physical Exam - Reviewed Nursing Documentation Reviewed: Yes Vital Signs Reviewed: Yes - Physical Exam Appears: Positive for: Non-toxic, No Acute Distress (Patient is obtunded) Head Exam: Positive for: ATRAUMATIC, NORMOCEPHALIC Skin: Positive for: Pallor. Negative for: Normal Color Eye Exam: Negative for: Normal appearance, PERRL (Left pupil is 2-3 mm, Right pupil is 1-2 mm) ENT: Positive for: Normal ENT Inspection Cardiovascular/Chest: Positive for: Regular Rate, Rhythm. Negative for: Murmur Respiratory: Positive for: Other (Airway is protected). Negative for: Normal Breath Sounds (coarse breath sounds b/l) Gastrointestinal/Abdominal: Positive for: Normal Exam, Soft. Negative for: Tenderness Back: Positive for: Normal Inspection. Negative for: L CVA Tenderness, R CVA Tenderness Extremity: Positive for: Normal ROM. Negative for: Deformity, Swelling Neurologic/Psych: Positive for: Other (Patient does not follow commands). Negative for: Alert, Oriented - Laboratory Results Result Diagrams: 09/09/17 04:35 09/09/17 04:35 - ECG O2 Sat by Pulse Oximetry: 100 (RA) Pulse Ox Interpretation: Normal Medical Decision Making Medical Decision Making: Impression: Sepsis vs. CVA vs. Seizure vs. Electrolyte Imbalance Plan: * CT Head w/o contrast * Chest X-Ray * EKG * BNP * CMP * Magnesium * Phosphorous * Troponin I * Blood Culture * Urine Culture * Urinalysis * NaCl 1000 mLs at 2000 mLs/hr * Reevaluation CT Head without Contrast FINDINGS: Brain: There is mild diffuse cerebral atrophy present, consistent with this patient's age. No hemorrhage. No significant white matter disease. Ventricles: Unremarkable. No ventriculomegaly. Bones/joints: Unremarkable. No acute fracture. Soft tissues: Unremarkable. Sinuses: Unremarkable as visualized. No acute sinusitis. Mastoid air cells: There is diffuse mucoperiosteal thickening and fluid in the maxillary sinuses. IMPRESSION: No acute intracranial findings. Maxillary sinusitis. Chest X-Ray FINDINGS: Lungs: Low lung volumes. Right lung base bandlike density secondary to atelectasis or infiltrate. Pleural space: Unremarkable. No pneumothorax. Heart: Unremarkable. No cardiomegaly. Mediastinum: Unremarkable. Bones/joints: Unremarkable. IMPRESSION: Right lung base atelectasis or infiltrate. 5:37 Patient given Narcan with good response, patient is now completely awake and states that she is feeling better. Patient states that she did not taken any extra of any medication. Pupils are 3-4 mm b/l, and reactive. Will admit for PNA , acute kidney injury, and overdose. Clinical Impression: Medication Overdose, Aspiration PNA, TED Scribe Attestation: Documented by Elena Davidson, acting as a scribe for Rudolph Chery MD. Provider Scribe Attestation: All medical record entries made by the Scribe were at my direction and personally dictated by me. I have reviewed the chart and agree that the record accurately reflects my personal performance of the history, physical exam, medical decision making, and the department course for this patient. I have also personally directed, reviewed, and agree with the discharge instructions and disposition. Disposition - Clinical Impression Clinical Impression: TED (acute kidney injury), Pneumonia, Overdose - Disposition Disposition Time: 06:00 Condition: GUARDED
[2017-09-09 05:04] LABS: TROPONIN I 0.027 ng/mL (0.00-0.120)
--- NOTE | 2017-09-09 05:13 | CT ---
EXAM: CT Head Without Intravenous Contrast CLINICAL HISTORY: 57 years old, female; Signs and symptoms; Other: Lethargic; Additional info: Lethargy TECHNIQUE: Axial computed tomography images of the head/brain without intravenous contrast. All CT scans at this facility use one or more dose reduction techniques, viz.: automated exposure control; ma/kV adjustment per patient size (including targeted exams where dose is matched to indication; i.e. head); or iterative reconstruction technique. Coronal and sagittal reformatted images were created and reviewed. COMPARISON: CTA HEAD NECK BUNDLE 2017-04-29 14:10 FINDINGS: Brain: There is mild diffuse cerebral atrophy present, consistent with this patient's age. No hemorrhage. No significant white matter disease. Ventricles: Unremarkable. No ventriculomegaly. Bones/joints: Unremarkable. No acute fracture. Soft tissues: Unremarkable. Sinuses: Unremarkable as visualized. No acute sinusitis. Mastoid air cells: There is diffuse mucoperiosteal thickening and fluid in the maxillary sinuses. IMPRESSION: No acute intracranial findings. Maxillary sinusitis.
--- NOTE | 2017-09-09 05:28 | RAD ---
EXAM: XR Chest, 1 View CLINICAL HISTORY: 57 years old, female; Screening exam; Other screening; Additional info: Sepsis patient TECHNIQUE: Frontal view of the chest. COMPARISON: CR - CHEST PORTABLE 2017-04-29 13:22 FINDINGS: Lungs: Low lung volumes. Right lung base bandlike density secondary to atelectasis or infiltrate. Pleural space: Unremarkable. No pneumothorax. Heart: Unremarkable. No cardiomegaly. Mediastinum: Unremarkable. Bones/joints: Unremarkable. IMPRESSION: Right lung base atelectasis or infiltrate.
[2017-09-09] MEDS ORDERED: Azithromycin 500 MG in Sodium Chloride 0.9% 250 ML IVPB STA (05:53)
[2017-09-09] MEDS ORDERED: Naloxone 0.4 mg/ml Inj (Adult) ONE (05:59)
--- NOTE | 2017-09-09 07:59 | ED PDOC ---
- Laboratory Results Result Diagrams: 09/10/17 04:55 09/10/17 04:55 - ECG O2 Sat by Pulse Oximetry: 100 (RA) Pulse Ox Interpretation: Normal Medical Decision Making Medical Decision Making: Time: 7:50 --Called to bedside for low blood pressure --IV Fluids ordered --Patient will be upgraded to Tele for now Time: 8:55 --Patient had been admitted to med surg per Dr. Chery. Provider was called to bedside because patient's blood pressure was 80 systolic. Fluid bolus was ordered and patient's blood pressure increased to 113 systolic but is now in the 90s. --Patient is still lethargic. Narcan ordered --Urine obtained for utox and urinalysis --Patient has possible pneumonia on chest xr. IV antibiotics were given early this morning --Lactic acid 1.8 on VBG --Family practice resident is at bedside --Dr. Terry textile converter aware of patient and will come to see her in the ER Time: 9:34 --After narcan, blood pressure improved. Time: 10:05 --Dr. Terry accepted patient to ICU. pt will be started on narcan drip. Scribe Attestation: Documented by Rashi Polanco, acting as a scribe for Hermila Cary MD Provider Scribe Attestation: All medical record entries made by the Scribe were at my direction and personally dictated by me. I have reviewed the chart and agree that the record accurately reflects my personal performance of the history, physical exam, medical decision making, and the department course for this patient. I have also personally directed, reviewed, and agree with the discharge instructions and disposition. Disposition Discussed With : Kenneth Terry Doctor Will See Patient In The: ED Counseled Patient/Family Regarding: Studies Performed, Diagnosis - Clinical Impression Clinical Impression: TED (acute kidney injury), Pneumonia, Overdose - POA Present On Arrival: None - Disposition Disposition: Admitted as In-Patient Disposition Time: 09:30 Condition: GUARDED
[2017-09-09] MEDS: Sodium Chloride 0.9% 1,000 ML IV STA ×2 (08:57→09:05)
[2017-09-09 09:15] LABS: SQUAMOUS EPITHIAL 7 /hpf (0-5); URINE BACTERIA MANY (<OCC); URINE BILIRUBIN NEGATIVE (NEGATIVE); URINE BLOOD MODERATE (NEGATIVE); URINE CLARITY CLOUDY (Clear); URINE COLOR YELLOW (YELLOW); URINE GLUCOSE (UA) NEG (Normal); URINE LEUKOCYTE ESTERASE LARGE Leu/uL (Negative); URINE NITRATE NEGATIVE (NEGATIVE); URINE PROTEIN 30 mg/dL (NEGATIVE); URINE UROBILINOGEN 0.2-1.0 mg/dL (0.2-1.0)
[2017-09-09] MEDS: cefTRIAXone 2 GM in Sodium Chloride 0.9% 100 ML IVPB SCH (09:18)
[2017-09-09] MEDS ORDERED: Naloxone 0.4 mg/ml Inj (Adult) IV SCH (09:30)
[2017-09-09 10:01] LABS: BARBITURATES, UR NEGATIVE (NEGATIVE); BENZODIAZEPINES, UR NEGATIVE (NEGATIVE); OPIATES, UR POSITIVE (NEGATIVE); PHENCYCLIDINE, UR NEGATIVE (NEGATIVE)
[2017-09-09] MEDS ORDERED: Sodium Chloride 0.9% 1,000 ML IV SCH ×2 (10:15→14:45)
[2017-09-09] MEDS ORDERED: Naloxone 4 MG in Sodium Chloride 0.9% 250 ML IVP ONE (10:15)
--- NOTE | 2017-09-09 13:11 | CP.PCM.HP ---
History of Present Illness - History of Present Illness History of Present Illness: 57 y/o F with PMH including DM2, HTN, Carotid stenosis s/p endarterectomy presented to ED by EMS due to weakness and lethargy. At time of assessment, patient extremely fatigued and constantly falling asleep so history was obtained via chart and patient. According to family, patient had approximately 6 hours of progressive lethargy when she tried to go to the restroom and called for help. Family called EMS and at time of ED assessment she was found to have pinpoint pupils. She was given 4mg of Narcan and became more alert and responsive. At time of this sheet writer's assessment, patient was very sleepy and stated "I took something I wasn't supposed to" when asked for clarification, she states she may have taken more than her prescribed amount of pain medications. In addition, a creatinine of 4.1 was noted, which is a departure from her baseline of 0.8, one month ago. PMD: Unknown/[facility] ED Course: Leukocytosis of 14.8 was detected with no left shift CMP revealed elevated creatinine of 4.1 and slightly elevated LFTs Troponin x1 negative Urine drug screen notable for opiates only Acetaminophen level and Salicylate levels WNL Serum ETOH negative CPK elevated at 471 TSH WNL Procalcitonin pending Blood culture/Urine culture collected CT Head: No acute intracranial findings CXR: Right lung base atelectasis/infiltrate Narcan 2mg IV x3 doses given Narcan drip of 2mg/hr started 3L normal saline bolus given Empiric ceftriaxone 2gm IV and azithromycin 500mg given Present on Admission - Present on Admission Any Indicators Present on Admission: Yes History of DVT/PE: No History of Uncontrolled Diabetes: Yes Urinary Catheter: Yes (Donis placed in ED) Decubitus Ulcer Present: No Review of Systems - Review of Systems Systems not reviewed;Unavailable: Altered Mental Status Past Patient History - Infectious Disease Hx of Infectious Diseases: None - Past Medical History & Family History Past Medical History?: Yes - Past Social History Smoking Status: Heavy Smoker > 10 Cigarettes Daily Drugs: Prescription medications (Prescribed prescription opiates for chronic pain) Home Situation {Lives}: With Family - CARDIAC Hx Congestive Heart Failure: Yes Hx Hypercholesterolemia: Yes Hx Hypertension: Yes - PULMONARY Hx Asthma: Yes - NEUROLOGICAL Hx Seizures: No - HEENT Hx HEENT Problems: No - RENAL Hx Chronic Kidney Disease: No - ENDOCRINE/METABOLIC Hx Diabetes Mellitus Type 2: Yes - HEMATOLOGICAL/ONCOLOGICAL Hx Anemia: Yes Hx Human Immunodeficiency Virus (HIV): No - INTEGUMENTARY Hx Dermatological Problems: No - MUSCULOSKELETAL/RHEUMATOLOGICAL Hx Arthritis: Yes - GASTROINTESTINAL Hx Gastrointestinal Disorders: No Hx Gastroesophageal Reflux: Yes - GENITOURINARY/GYNECOLOGICAL Hx Sexually Transmitted Disorders: No - PSYCHIATRIC Hx Anxiety: Yes Hx Depression: Yes - SURGICAL HISTORY Hx Appendectomy: Yes Hx Carotid Endarterectomy: Yes Hx Cholecystectomy: Yes - ANESTHESIA Hx Anesthesia: Yes Hx Anesthesia Reactions: No Hx Malignant Hyperthermia: No Meds Allergies/Adverse Reactions: Allergies Allergy/AdvReac Type Severity Reaction Status Date / Time vancomycin AdvReac ITCHING Verified 09/09/17 04:39 Physical Exam - Constitutional Appears: Confused, Other (Lethargic) - Head Exam Head Exam: ATRAUMATIC, NORMAL INSPECTION, NORMOCEPHALIC - Eye Exam Additional comments: Pupils constricted but reactive - ENT Exam ENT Exam: Mucous Membranes Dry - Respiratory Exam Respiratory Exam: Clear to Auscultation Bilateral. absent: Rales, Rhonchi, Wheezes Additional comments: borderline low respiratory rate of 11-12 breaths per minute - Cardiovascular Exam Cardiovascular Exam: RRR, +S1, +S2 - GI/Abdominal Exam GI & Abdominal Exam: Hypoactive Bowel Sounds, Soft. 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 Left foot warm , capillary refill <3 seconds. No edema. Radial pulses 2+ b/l. - Neurological Exam Neurological exam: Altered - Skin Skin Exam: Dry, Warm Results - Vital Signs Recent Vital Signs: Last Vital Signs Temp 98 F 09/09/17 10:49 Pulse 83 09/09/17 10:49 Resp 18 09/09/17 10:49 BP 104/66 09/09/17 10:49 Pulse Ox 100 09/09/17 10:49 - Labs Result Diagrams: 09/09/17 04:35 09/09/17 16:34 Labs: Laboratory Results - last 24 hr 09/09/17 09/09/17 09/09/17 03:59 04:14 04:35 WBC RBC Hgb Hct MCV MCH MCHC RDW Plt Count MPV Neut % (Auto) Lymph % (Auto) [place] % (Auto) Eos % (Auto) Baso % (Auto) Neut # (Auto) Lymph # (Auto) [place] # (Auto) Eos # (Auto) Baso # (Auto) PT INR APTT pO2 54 VBG pH 7.26 L VBG pCO2 57 VBG HCO3 22.6 VBG Total CO2 27.3 VBG O2 Sat (Calc) 87.0 H VBG Base Excess -2.4 L VBG Potassium 5.0 Sodium 126.0 L 132 Chloride 94.0 L 90 L Glucose 84 Lactate 1.8 FiO2 21.0 Potassium 4.7 Carbon Dioxide 25 Anion Gap 22 H BUN 78 H Creatinine 4.1 H Est GFR ( Amer) 14 Est GFR (Non-Af Amer) 11 POC Glucose (mg/dL) 79 Random Glucose 84 Calcium 8.7 Phosphorus 9.1 H Magnesium 2.3 Total Bilirubin 0.7 AST 65 H ALT 49 Alkaline Phosphatase 350 H Troponin I 0.0270 NT-Pro-B Natriuret Pep 460 Total Protein 8.5 H Albumin 3.7 Globulin 4.8 H Albumin/Globulin Ratio 0.8 L TSH 3rd Generation Venous Blood Potassium 5.0 Urine Color Urine Clarity Urine pH Ur Specific [place] Urine Protein Urine Glucose (UA) Urine Ketones Urine Blood Urine Nitrate Urine Bilirubin Urine Urobilinogen Ur Leukocyte Esterase Urine RBC (Auto) Urine Microscopic WBC Ur Squamous Epith Cells Urine Bacteria Salicylates Urine Opiates Screen Urine Methadone Screen Acetaminophen Ur Barbiturates Screen Ur Phencyclidine Scrn Ur Amphetamines Screen U Benzodiazepines Scrn U Oth Cocaine Metabols U Cannabinoids Screen Alcohol, Quantitative 09/09/17 09/09/17 09/09/17 04:35 04:35 08:45 WBC 14.8 H D RBC 3.65 L Hgb 12.2 D Hct 35.5 MCV 97.1 D MCH 33.4 H MCHC 34.4 RDW 13.2 Plt Count 247 MPV 10.6 Neut % (Auto) 69.3 Lymph % (Auto) 16.6 L [place] % (Auto) 11.6 H Eos % (Auto) 2.0 Baso % (Auto) 0.5 Neut # (Auto) 10.3 H Lymph # (Auto) 2.4 [place] # (Auto) 1.7 H Eos # (Auto) 0.3 Baso # (Auto) 0.1 PT 11.1 INR 1.0 APTT 30.1 pO2 VBG pH VBG pCO2 VBG HCO3 VBG Total CO2 VBG O2 Sat (Calc) VBG Base Excess VBG Potassium Sodium Chloride Glucose Lactate FiO2 Potassium Carbon Dioxide Anion Gap BUN Creatinine Est GFR ( Amer) Est GFR (Non-Af Amer) POC Glucose (mg/dL) Random Glucose Calcium Phosphorus Magnesium Total Bilirubin AST ALT Alkaline Phosphatase Troponin I NT-Pro-B Natriuret Pep Total Protein Albumin Globulin Albumin/Globulin Ratio TSH 3rd Generation Venous Blood Potassium Urine Color Yellow Urine Clarity Cloudy Urine pH 5.0 Ur Specific [place] 1.014 Urine Protein 30 Urine Glucose (UA) Neg Urine Ketones Negative Urine Blood Moderate Urine Nitrate Negative Urine Bilirubin Negative Urine Urobilinogen 0.2-1.0 Ur Leukocyte Esterase Large Urine RBC (Auto) 12 H Urine Microscopic WBC 21 H Ur Squamous Epith Cells 7 H Urine Bacteria Many H Salicylates Urine Opiates Screen Urine Methadone Screen Acetaminophen Ur Barbiturates Screen Ur Phencyclidine Scrn Ur Amphetamines Screen U Benzodiazepines Scrn U Oth Cocaine Metabols U Cannabinoids Screen Alcohol, Quantitative 09/09/17 09/09/17 09/09/17 08:45 12:00 12:00 WBC RBC Hgb Hct MCV MCH MCHC RDW Plt Count MPV Neut % (Auto) Lymph % (Auto) [place] % (Auto) Eos % (Auto) Baso % (Auto) Neut # (Auto) Lymph # (Auto) [place] # (Auto) Eos # (Auto) Baso # (Auto) PT INR APTT pO2 VBG pH VBG pCO2 VBG HCO3 VBG Total CO2 VBG O2 Sat (Calc) VBG Base Excess VBG Potassium Sodium Chloride Glucose Lactate FiO2 Potassium Carbon Dioxide Anion Gap BUN Creatinine Est GFR ( Amer) Est GFR (Non-Af Amer) POC Glucose (mg/dL) Random Glucose Calcium Phosphorus Magnesium Total Bilirubin AST ALT Alkaline Phosphatase Troponin I NT-Pro-B Natriuret Pep Total Protein Albumin Globulin Albumin/Globulin Ratio TSH 3rd Generation 0.49 Venous Blood Potassium Urine Color Urine Clarity Urine pH Ur Specific [place] Urine Protein Urine Glucose (UA) Urine Ketones Urine Blood Urine Nitrate Urine Bilirubin Urine Urobilinogen Ur Leukocyte Esterase Urine RBC (Auto) Urine Microscopic WBC Ur Squamous Epith Cells Urine Bacteria Salicylates Urine Opiates Screen Positive H Urine Methadone Screen Negative Acetaminophen < 10.0 L Ur Barbiturates Screen Negative Ur Phencyclidine Scrn Negative Ur Amphetamines Screen Negative U Benzodiazepines Scrn Negative U Oth Cocaine Metabols Negative U Cannabinoids Screen Negative Alcohol, Quantitative < 10 09/09/17 12:47 WBC RBC Hgb Hct MCV MCH MCHC RDW Plt Count MPV Neut % (Auto) Lymph % (Auto) [place] % (Auto) Eos % (Auto) Baso % (Auto) Neut # (Auto) Lymph # (Auto) [place] # (Auto) Eos # (Auto) Baso # (Auto) PT INR APTT pO2 VBG pH VBG pCO2 VBG HCO3 VBG Total CO2 VBG O2 Sat (Calc) VBG Base Excess VBG Potassium Sodium Chloride Glucose Lactate FiO2 Potassium Carbon Dioxide Anion Gap BUN Creatinine Est GFR ( Amer) Est GFR (Non-Af Amer) POC Glucose (mg/dL) Random Glucose Calcium Phosphorus Magnesium Total Bilirubin AST ALT Alkaline Phosphatase Troponin I NT-Pro-B Natriuret Pep Total Protein Albumin Globulin Albumin/Globulin Ratio TSH 3rd Generation Venous Blood Potassium Urine Color Urine Clarity Urine pH Ur Specific [place] Urine Protein Urine Glucose (UA) Urine Ketones Urine Blood Urine Nitrate Urine Bilirubin Urine Urobilinogen Ur Leukocyte Esterase Urine RBC (Auto) Urine Microscopic WBC Ur Squamous Epith Cells Urine Bacteria Salicylates < 1.0 Urine Opiates Screen Urine Methadone Screen Acetaminophen Ur Barbiturates Screen Ur Phencyclidine Scrn Ur Amphetamines Screen U Benzodiazepines Scrn U Oth Cocaine Metabols U Cannabinoids Screen Alcohol, Quantitative Assessment & Plan - Assessment and Plan (Free Text) Assessment: 57 y/o F with PMH including DM2, HTN, Carotid stenosis s/p endarterectomy presented to ED by EMS due to weakness and lethargy and subsequently admitted for suspected opioid overdose and acute renal failure. Plan: Acute Opioid Overdose -Undetermined amount of prescription opioid ingestion -S/p Narcan 2mg IV x3 doses with improvement -Narcan drip started at 2mg/hr -Patient has associated depression, will consult psychiatry -Will admit to telemetry for close monitoring Acute kidney failure -BUN/Cr 78/4.1 at admission -Etiology undetermined, possibly secondary to dehydration vs toxic ingestion -Renal doppler ordered due to associated atherosclerotic carotid disease -3L NS given in ED -Donis placed for I/Os with clear light yellow urine -Will continue to hydrate and follow renal function -Urine lytes pending -Nephrology, Dr Kaiser consult requested Leukocytosis -Undetermined etiology -WBC 14.8 with normal neutrophil% -CXR reports right lung atelectasis vs infiltrate -UA reveals moderate leuk esterace -Blood Cx, Urine Cx pending -Procalcitonin pending -S/P empiric rocephin 2gm, zithromax 500, unasyn 3gm IV in ED -Continue rocephin 2gm IV daily and azithromycin 500mg IV daily Seizure d/o -History of seizure on prior hospitalization -On Depakote 750mg bid NIDDM2 -Last HgbA1c: 7.1 in 04/2017 -Will continue home basal levemir 10units SC QHS -Insulin sliding scale, temporarily -Will hold home januvia 100mg po daily, glipizide xl 5mg po bid, and novolog 40units tid w/meals -ACCUcheck ACHS -Hypoglycemia protocol Hypertension -Taking amlodipine 5mg and lisinopril/hct 20/25 at home -Currently hypotensive -Will hold antihypertensives at this time and resume if indicated Depression -Will consider psychiatry consultation DVT Prophylaxis -SCDs for now -Will consider addition of heparin due to impaired renal function
[2017-09-09] MEDS ORDERED: Naloxone HCl 2mg/2ml syr IVP ONE (14:43)
--- NOTE | 2017-09-09 15:04 | CP.CCUPN ---
<Kiera Serrano - Last Filed: 09/09/17 16:20> CCU Subjective - Physician Review Subjective (Free Text): 09/09/17 15:00 57 y/o F with extensive PMHx including DM, HTN, Hyperlipidemia, PVD, S/P right BKA, Seizure disorder, Carotid stenosis s/p endarterectomy who was brought by EMS after she developed weakness and was lethargic while at home early today. As per ERs attending report, according to patient's family, she was last seen normal around 6 PM, and that at 12 AM, she was trying to get up to go to the bathroom and became very weak, and started calling for help. Patient's family called for EMS, and upon arrival to ED she has become increasingly tired.. Patient was seen and examined in ICU with attending central sterile supply technician. Patient unable to provide a clear history at this time. Patient is very drowsy, but arousable. She is Oriented x 3 at this time. However she reports poor appetite for the last 3 days, and states that she was drinking just sips of water at home. States that she was having left facial pain yesterday, and she took pain medication to get relief ( but she does not recall the name of pain med taken). Denies fevers, chills, urinary symptoms at this time. Critical Care Time Spent (in minutes): 45 CCU Objective - Vital Signs / Intake & Output Intake and Output (Last 8hrs): Intake & Output 09/09/17 09/09/17 09/09/17 06:59 14:59 22:59 Weight 199 lb - Physical Exam Physical Exam Limitations: Positive for: Altered Mental Status Head: Positive for: Atraumatic, Normocephalic Pupils: Positive for: Sluggish, Other (2 mm) Respiratory/Chest: Positive for: Clear to Auscultation. Negative for: Respiratory Distress, Wheezes, Rales, Rhonchi, Tachypneic Cardiovascular: Positive for: Regular Rate and Rhythm, Normal S1, S2 Abdomen: Positive for: Other (bowel sounds present, but slightly decrease). Negative for: Tenderness, Distention, Rebound, Guarding Lower Extremity: Positive for: Other (Right BKA, no edema in left lower extremities, no evidence of foot ulcers). Negative for: Edema Neurological: Positive for: Other Skin: Positive for: Warm, Dry, Pale Psychiatric: Positive for: Oriented x 3, Lethargic - Medications Active Medications: Active Medications Generic Name Dose Route Start Last Admin Trade Name Roge PRN Reason Stop Dose Admin Ceftriaxone Sodium 2 gm/ 100 mls @ 100 mls/hr 09/09/17 09:00 09/09/17 09:18 Sodium Chloride IVPB 100 mls/hr DAILY MARII Administration Protocol Sodium Chloride 1,000 mls @ 999 mls/hr 09/09/17 14:45 Sodium Chloride 0.9% IV 09/10/17 14:40 .Q1H1M MARII Dextrose/Sodium Chloride 1,000 mls @ 150 mls/hr 09/09/17 15:00 Dextrose 5%-0.9% Ns 500 Ml IV 09/10/17 14:48 .Q6H40M MARII Naloxone HCl 4 mg/ Dextrose 504 mls @ 50.4 mls/hr 09/09/17 15:00 IVPB 09/10/17 15:01 .Q10H MARII 0.4 MG/HR - Patient Studies Lab Studies: Lab Studies 09/09/17 09/09/17 09/09/17 Range/Units 12:47 12:00 12:00 WBC (4.8-10.8) K/uL RBC (3.80-5.20) Mil/uL Hgb (12.0-16.0) g/dL Hct (34.0-47.0) % MCV (81.0-99.0) fl MCH (27.0-31.0) pg MCHC (33.0-37.0) g/dL RDW (11.5-14.5) % Plt Count (130-400) K/uL MPV (7.2-11.7) fl Neut % (Auto) (50.0-75.0) % Lymph % (Auto) (20.0-40.0) % [place] % (Auto) (0.0-10.0) % Eos % (Auto) (0.0-4.0) % Baso % (Auto) (0.0-2.0) % Neut # (Auto) (1.8-7.0) K/uL Lymph # (Auto) (1.0-4.3) K/uL [place] # (Auto) (0.0-0.8) K/uL Eos # (Auto) (0.0-0.7) K/uL Baso # (Auto) (0.0-0.2) K/uL PT (9.8-13.1) Seconds INR (0.9-1.2) APTT (25.6-37.1) Seconds pO2 (30-55) mm/Hg VBG pH (7.32-7.43) VBG pCO2 (40-60) mmHg VBG HCO3 mmol/L VBG Total CO2 (22-28) mmol/L VBG O2 Sat (Calc) (40-65) % VBG Base Excess (0.0-2.0) mmol/L VBG Potassium (3.6-5.2) mmol/L Sodium (132-148) mmol/L Chloride (98-107) mmol/L Glucose (65-105) mg/dL Lactate (0.7-2.1) mmol/L FiO2 % Potassium (3.6-5.0) MMOL/L Carbon Dioxide (22-30) mmol/L Anion Gap (10-20) BUN (7-17) mg/dl Creatinine (0.7-1.2) mg/dl Est GFR ( Amer) Est GFR (Non-Af Amer) POC Glucose (mg/dL) (65-110) mg/dL Random Glucose (65-105) mg/dL Calcium (8.4-10.2) mg/dL Phosphorus (2.5-4.5) mg/dl Magnesium (1.6-2.3) MG/DL Total Bilirubin (0.2-1.3) mg/dl AST (14-36) U/L ALT (9-52) U/L Alkaline Phosphatase (38-126) U/L Total Creatine Kinase 471 H (30-135) U/L Troponin I (0.00-0.120) ng/mL NT-Pro-B Natriuret Pep (0-900) pg/ml Total Protein (6.3-8.2) G/DL Albumin (3.5-5.0) g/dL Globulin (2.2-3.9) gm/dL Albumin/Globulin Ratio (1.0-2.1) Vitamin B12 576 (239-931) pg/mL TSH 3rd Generation 0.49 (0.46-4.68) mIU/ML Venous Blood Potassium (3.6-5.2) mmol/L Urine Color (YELLOW) Urine Clarity (Clear) Urine pH (5.0-8.0) Ur Specific [place] (1.003-1.030) Urine Protein (NEGATIVE) mg/dL Urine Glucose (UA) (Normal) mg/dL Urine Ketones (NEGATIVE) mg/dL Urine Blood (NEGATIVE) Urine Nitrate (NEGATIVE) Urine Bilirubin (NEGATIVE) Urine Urobilinogen (0.2-1.0) mg/dL Ur Leukocyte Esterase (Negative) Kari/uL Urine RBC (Auto) (0-3) /hpf Urine Microscopic WBC (0-5) /hpf Ur Squamous Epith Cells (0-5) /hpf Urine Bacteria (<OCC) Salicylates < 1.0 mg/dl Urine Opiates Screen (NEGATIVE) Urine Methadone Screen (NEGATIVE) Acetaminophen < 10.0 L (10.0-30.0) ug/ml Ur Barbiturates Screen (NEGATIVE) Ur Phencyclidine Scrn (NEGATIVE) Ur Amphetamines Screen (NEGATIVE) U Benzodiazepines Scrn (NEGATIVE) U Oth Cocaine Metabols (NEGATIVE) U Cannabinoids Screen (NEGATIVE) Alcohol, Quantitative < 10 (0-10) mg/dl 09/09/17 09/09/17 09/09/17 Range/Units 08:45 08:45 04:35 WBC (4.8-10.8) K/uL RBC (3.80-5.20) Mil/uL Hgb (12.0-16.0) g/dL Hct (34.0-47.0) % MCV (81.0-99.0) fl MCH (27.0-31.0) pg MCHC (33.0-37.0) g/dL RDW (11.5-14.5) % Plt Count (130-400) K/uL MPV (7.2-11.7) fl Neut % (Auto) (50.0-75.0) % Lymph % (Auto) (20.0-40.0) % [place] % (Auto) (0.0-10.0) % Eos % (Auto) (0.0-4.0) % Baso % (Auto) (0.0-2.0) % Neut # (Auto) (1.8-7.0) K/uL Lymph # (Auto) (1.0-4.3) K/uL [place] # (Auto) (0.0-0.8) K/uL Eos # (Auto) (0.0-0.7) K/uL Baso # (Auto) (0.0-0.2) K/uL PT 11.1 (9.8-13.1) Seconds INR 1.0 (0.9-1.2) APTT 30.1 (25.6-37.1) Seconds pO2 (30-55) mm/Hg VBG pH (7.32-7.43) VBG pCO2 (40-60) mmHg VBG HCO3 mmol/L VBG Total CO2 (22-28) mmol/L VBG O2 Sat (Calc) (40-65) % VBG Base Excess (0.0-2.0) mmol/L VBG Potassium (3.6-5.2) mmol/L Sodium (132-148) mmol/L Chloride (98-107) mmol/L Glucose (65-105) mg/dL Lactate (0.7-2.1) mmol/L FiO2 % Potassium (3.6-5.0) MMOL/L Carbon Dioxide (22-30) mmol/L Anion Gap (10-20) BUN (7-17) mg/dl Creatinine (0.7-1.2) mg/dl Est GFR ( Amer) Est GFR (Non-Af Amer) POC Glucose (mg/dL) (65-110) mg/dL Random Glucose (65-105) mg/dL Calcium (8.4-10.2) mg/dL Phosphorus (2.5-4.5) mg/dl Magnesium (1.6-2.3) MG/DL Total Bilirubin (0.2-1.3) mg/dl AST (14-36) U/L ALT (9-52) U/L Alkaline Phosphatase (38-126) U/L Total Creatine Kinase (30-135) U/L Troponin I (0.00-0.120) ng/mL NT-Pro-B Natriuret Pep (0-900) pg/ml Total Protein (6.3-8.2) G/DL Albumin (3.5-5.0) g/dL Globulin (2.2-3.9) gm/dL Albumin/Globulin Ratio (1.0-2.1) Vitamin B12 (239-931) pg/mL TSH 3rd Generation (0.46-4.68) mIU/ML Venous Blood Potassium (3.6-5.2) mmol/L Urine Color Yellow (YELLOW) Urine Clarity Cloudy (Clear) Urine pH 5.0 (5.0-8.0) Ur Specific [place] 1.014 (1.003-1.030) Urine Protein 30 (NEGATIVE) mg/dL Urine Glucose (UA) Neg (Normal) mg/dL Urine Ketones Negative (NEGATIVE) mg/dL Urine Blood Moderate (NEGATIVE) Urine Nitrate Negative (NEGATIVE) Urine Bilirubin Negative (NEGATIVE) Urine Urobilinogen 0.2-1.0 (0.2-1.0) mg/dL Ur Leukocyte Esterase Large (Negative) Kari/uL Urine RBC (Auto) 12 H (0-3) /hpf Urine Microscopic WBC 21 H (0-5) /hpf Ur Squamous Epith Cells 7 H (0-5) /hpf Urine Bacteria Many H (<OCC) Salicylates mg/dl Urine Opiates Screen Positive H (NEGATIVE) Urine Methadone Screen Negative (NEGATIVE) Acetaminophen (10.0-30.0) ug/ml Ur Barbiturates Screen Negative (NEGATIVE) Ur Phencyclidine Scrn Negative (NEGATIVE) Ur Amphetamines Screen Negative (NEGATIVE) U Benzodiazepines Scrn Negative (NEGATIVE) U Oth Cocaine Metabols Negative (NEGATIVE) U Cannabinoids Screen Negative (NEGATIVE) Alcohol, Quantitative (0-10) mg/dl 09/09/17 09/09/17 09/09/17 Range/Units 04:35 04:35 04:14 WBC 14.8 H D (4.8-10.8) K/uL RBC 3.65 L (3.80-5.20) Mil/uL Hgb 12.2 D (12.0-16.0) g/dL Hct 35.5 (34.0-47.0) % MCV 97.1 D (81.0-99.0) fl MCH 33.4 H (27.0-31.0) pg MCHC 34.4 (33.0-37.0) g/dL RDW 13.2 (11.5-14.5) % Plt Count 247 (130-400) K/uL MPV 10.6 (7.2-11.7) fl Neut % (Auto) 69.3 (50.0-75.0) % Lymph % (Auto) 16.6 L (20.0-40.0) % [place] % (Auto) 11.6 H (0.0-10.0) % Eos % (Auto) 2.0 (0.0-4.0) % Baso % (Auto) 0.5 (0.0-2.0) % Neut # (Auto) 10.3 H (1.8-7.0) K/uL Lymph # (Auto) 2.4 (1.0-4.3) K/uL [place] # (Auto) 1.7 H (0.0-0.8) K/uL Eos # (Auto) 0.3 (0.0-0.7) K/uL Baso # (Auto) 0.1 (0.0-0.2) K/uL PT (9.8-13.1) Seconds INR (0.9-1.2) APTT (25.6-37.1) Seconds pO2 54 (30-55) mm/Hg VBG pH 7.26 L (7.32-7.43) VBG pCO2 57 (40-60) mmHg VBG HCO3 22.6 mmol/L VBG Total CO2 27.3 (22-28) mmol/L VBG O2 Sat (Calc) 87.0 H (40-65) % VBG Base Excess -2.4 L (0.0-2.0) mmol/L VBG Potassium 5.0 (3.6-5.2) mmol/L Sodium 132 126.0 L (132-148) mmol/L Chloride 90 L 94.0 L (98-107) mmol/L Glucose 84 (65-105) mg/dL Lactate 1.8 (0.7-2.1) mmol/L FiO2 21.0 % Potassium 4.7 (3.6-5.0) MMOL/L Carbon Dioxide 25 (22-30) mmol/L Anion Gap 22 H (10-20) BUN 78 H (7-17) mg/dl Creatinine 4.1 H (0.7-1.2) mg/dl Est GFR ( Amer) 14 Est GFR (Non-Af Amer) 11 POC Glucose (mg/dL) (65-110) mg/dL Random Glucose 84 (65-105) mg/dL Calcium 8.7 (8.4-10.2) mg/dL Phosphorus 9.1 H (2.5-4.5) mg/dl Magnesium 2.3 (1.6-2.3) MG/DL Total Bilirubin 0.7 (0.2-1.3) mg/dl AST 65 H (14-36) U/L ALT 49 (9-52) U/L Alkaline Phosphatase 350 H (38-126) U/L Total Creatine Kinase (30-135) U/L Troponin I 0.0270 (0.00-0.120) ng/mL NT-Pro-B Natriuret Pep 460 (0-900) pg/ml Total Protein 8.5 H (6.3-8.2) G/DL Albumin 3.7 (3.5-5.0) g/dL Globulin 4.8 H (2.2-3.9) gm/dL Albumin/Globulin Ratio 0.8 L (1.0-2.1) Vitamin B12 (239-931) pg/mL TSH 3rd Generation (0.46-4.68) mIU/ML Venous Blood Potassium 5.0 (3.6-5.2) mmol/L Urine Color (YELLOW) Urine Clarity (Clear) Urine pH (5.0-8.0) Ur Specific [place] (1.003-1.030) Urine Protein (NEGATIVE) mg/dL Urine Glucose (UA) (Normal) mg/dL Urine Ketones (NEGATIVE) mg/dL Urine Blood (NEGATIVE) Urine Nitrate (NEGATIVE) Urine Bilirubin (NEGATIVE) Urine Urobilinogen (0.2-1.0) mg/dL Ur Leukocyte Esterase (Negative) Kari/uL Urine RBC (Auto) (0-3) /hpf Urine Microscopic WBC (0-5) /hpf Ur Squamous Epith Cells (0-5) /hpf Urine Bacteria (<OCC) Salicylates mg/dl Urine Opiates Screen (NEGATIVE) Urine Methadone Screen (NEGATIVE) Acetaminophen (10.0-30.0) ug/ml Ur Barbiturates Screen (NEGATIVE) Ur Phencyclidine Scrn (NEGATIVE) Ur Amphetamines Screen (NEGATIVE) U Benzodiazepines Scrn (NEGATIVE) U Oth Cocaine Metabols (NEGATIVE) U Cannabinoids Screen (NEGATIVE) Alcohol, Quantitative (0-10) mg/dl 09/09/17 Range/Units 03:59 WBC (4.8-10.8) K/uL RBC (3.80-5.20) Mil/uL Hgb (12.0-16.0) g/dL Hct (34.0-47.0) % MCV (81.0-99.0) fl MCH (27.0-31.0) pg MCHC (33.0-37.0) g/dL RDW (11.5-14.5) % Plt Count (130-400) K/uL MPV (7.2-11.7) fl Neut % (Auto) (50.0-75.0) % Lymph % (Auto) (20.0-40.0) % [place] % (Auto) (0.0-10.0) % Eos % (Auto) (0.0-4.0) % Baso % (Auto) (0.0-2.0) % Neut # (Auto) (1.8-7.0) K/uL Lymph # (Auto) (1.0-4.3) K/uL [place] # (Auto) (0.0-0.8) K/uL Eos # (Auto) (0.0-0.7) K/uL Baso # (Auto) (0.0-0.2) K/uL PT (9.8-13.1) Seconds INR (0.9-1.2) APTT (25.6-37.1) Seconds pO2 (30-55) mm/Hg VBG pH (7.32-7.43) VBG pCO2 (40-60) mmHg VBG HCO3 mmol/L VBG Total CO2 (22-28) mmol/L VBG O2 Sat (Calc) (40-65) % VBG Base Excess (0.0-2.0) mmol/L VBG Potassium (3.6-5.2) mmol/L Sodium (132-148) mmol/L Chloride (98-107) mmol/L Glucose (65-105) mg/dL Lactate (0.7-2.1) mmol/L FiO2 % Potassium (3.6-5.0) MMOL/L Carbon Dioxide (22-30) mmol/L Anion Gap (10-20) BUN (7-17) mg/dl Creatinine (0.7-1.2) mg/dl Est GFR ( Amer) Est GFR (Non-Af Amer) POC Glucose (mg/dL) 79 (65-110) mg/dL Random Glucose (65-105) mg/dL Calcium (8.4-10.2) mg/dL Phosphorus (2.5-4.5) mg/dl Magnesium (1.6-2.3) MG/DL Total Bilirubin (0.2-1.3) mg/dl AST (14-36) U/L ALT (9-52) U/L Alkaline Phosphatase (38-126) U/L Total Creatine Kinase (30-135) U/L Troponin I (0.00-0.120) ng/mL NT-Pro-B Natriuret Pep (0-900) pg/ml Total Protein (6.3-8.2) G/DL Albumin (3.5-5.0) g/dL Globulin (2.2-3.9) gm/dL Albumin/Globulin Ratio (1.0-2.1) Vitamin B12 (239-931) pg/mL TSH 3rd Generation (0.46-4.68) mIU/ML Venous Blood Potassium (3.6-5.2) mmol/L Urine Color (YELLOW) Urine Clarity (Clear) Urine pH (5.0-8.0) Ur Specific [place] (1.003-1.030) Urine Protein (NEGATIVE) mg/dL Urine Glucose (UA) (Normal) mg/dL Urine Ketones (NEGATIVE) mg/dL Urine Blood (NEGATIVE) Urine Nitrate (NEGATIVE) Urine Bilirubin (NEGATIVE) Urine Urobilinogen (0.2-1.0) mg/dL Ur Leukocyte Esterase (Negative) Kari/uL Urine RBC (Auto) (0-3) /hpf Urine Microscopic WBC (0-5) /hpf Ur Squamous Epith Cells (0-5) /hpf Urine Bacteria (<OCC) Salicylates mg/dl Urine Opiates Screen (NEGATIVE) Urine Methadone Screen (NEGATIVE) Acetaminophen (10.0-30.0) ug/ml Ur Barbiturates Screen (NEGATIVE) Ur Phencyclidine Scrn (NEGATIVE) Ur Amphetamines Screen (NEGATIVE) U Benzodiazepines Scrn (NEGATIVE) U Oth Cocaine Metabols (NEGATIVE) U Cannabinoids Screen (NEGATIVE) Alcohol, Quantitative (0-10) mg/dl Laboratory Results - last 24 hr 09/09/17 09/09/17 09/09/17 03:59 04:14 04:35 WBC RBC Hgb Hct MCV MCH MCHC RDW Plt Count MPV Neut % (Auto) Lymph % (Auto) [place] % (Auto) Eos % (Auto) Baso % (Auto) Neut # (Auto) Lymph # (Auto) [place] # (Auto) Eos # (Auto) Baso # (Auto) PT INR APTT pO2 54 VBG pH 7.26 L VBG pCO2 57 VBG HCO3 22.6 VBG Total CO2 27.3 VBG O2 Sat (Calc) 87.0 H VBG Base Excess -2.4 L VBG Potassium 5.0 Sodium 126.0 L 132 Chloride 94.0 L 90 L Glucose 84 Lactate 1.8 FiO2 21.0 Potassium 4.7 Carbon Dioxide 25 Anion Gap 22 H BUN 78 H Creatinine 4.1 H Est GFR ( Amer) 14 Est GFR (Non-Af Amer) 11 POC Glucose (mg/dL) 79 Random Glucose 84 Calcium 8.7 Phosphorus 9.1 H Magnesium 2.3 Total Bilirubin 0.7 AST 65 H ALT 49 Alkaline Phosphatase 350 H Total Creatine Kinase Troponin I 0.0270 NT-Pro-B Natriuret Pep 460 Total Protein 8.5 H Albumin 3.7 Globulin 4.8 H Albumin/Globulin Ratio 0.8 L Vitamin B12 TSH 3rd Generation Venous Blood Potassium 5.0 Urine Color Urine Clarity Urine pH Ur Specific [place] Urine Protein Urine Glucose (UA) Urine Ketones Urine Blood Urine Nitrate Urine Bilirubin Urine Urobilinogen Ur Leukocyte Esterase Urine RBC (Auto) Urine Microscopic WBC Ur Squamous Epith Cells Urine Bacteria Salicylates Urine Opiates Screen Urine Methadone Screen Acetaminophen Ur Barbiturates Screen Ur Phencyclidine Scrn Ur Amphetamines Screen U Benzodiazepines Scrn U Oth Cocaine Metabols U Cannabinoids Screen Alcohol, Quantitative 09/09/17 09/09/17 09/09/17 04:35 04:35 08:45 WBC 14.8 H D RBC 3.65 L Hgb 12.2 D Hct 35.5 MCV 97.1 D MCH 33.4 H MCHC 34.4 RDW 13.2 Plt Count 247 MPV 10.6 Neut % (Auto) 69.3 Lymph % (Auto) 16.6 L [place] % (Auto) 11.6 H Eos % (Auto) 2.0 Baso % (Auto) 0.5 Neut # (Auto) 10.3 H Lymph # (Auto) 2.4 [place] # (Auto) 1.7 H Eos # (Auto) 0.3 Baso # (Auto) 0.1 PT 11.1 INR 1.0 APTT 30.1 pO2 VBG pH VBG pCO2 VBG HCO3 VBG Total CO2 VBG O2 Sat (Calc) VBG Base Excess VBG Potassium Sodium Chloride Glucose Lactate FiO2 Potassium Carbon Dioxide Anion Gap BUN Creatinine Est GFR ( Amer) Est GFR (Non-Af Amer) POC Glucose (mg/dL) Random Glucose Calcium Phosphorus Magnesium Total Bilirubin AST ALT Alkaline Phosphatase Total Creatine Kinase Troponin I NT-Pro-B Natriuret Pep Total Protein Albumin Globulin Albumin/Globulin Ratio Vitamin B12 TSH 3rd Generation Venous Blood Potassium Urine Color Yellow Urine Clarity Cloudy Urine pH 5.0 Ur Specific [place] 1.014 Urine Protein 30 Urine Glucose (UA) Neg Urine Ketones Negative Urine Blood Moderate Urine Nitrate Negative Urine Bilirubin Negative Urine Urobilinogen 0.2-1.0 Ur Leukocyte Esterase Large Urine RBC (Auto) 12 H Urine Microscopic WBC 21 H Ur Squamous Epith Cells 7 H Urine Bacteria Many H Salicylates Urine Opiates Screen Urine Methadone Screen Acetaminophen Ur Barbiturates Screen Ur Phencyclidine Scrn Ur Amphetamines Screen U Benzodiazepines Scrn U Oth Cocaine Metabols U Cannabinoids Screen Alcohol, Quantitative 09/09/17 09/09/17 09/09/17 08:45 12:00 12:00 WBC RBC Hgb Hct MCV MCH MCHC RDW Plt Count MPV Neut % (Auto) Lymph % (Auto) [place] % (Auto) Eos % (Auto) Baso % (Auto) Neut # (Auto) Lymph # (Auto) [place] # (Auto) Eos # (Auto) Baso # (Auto) PT INR APTT pO2 VBG pH VBG pCO2 VBG HCO3 VBG Total CO2 VBG O2 Sat (Calc) VBG Base Excess VBG Potassium Sodium Chloride Glucose Lactate FiO2 Potassium Carbon Dioxide Anion Gap BUN Creatinine Est GFR ( Amer) Est GFR (Non-Af Amer) POC Glucose (mg/dL) Random Glucose Calcium Phosphorus Magnesium Total Bilirubin AST ALT Alkaline Phosphatase Total Creatine Kinase 471 H Troponin I NT-Pro-B Natriuret Pep Total Protein Albumin Globulin Albumin/Globulin Ratio Vitamin B12 576 TSH 3rd Generation 0.49 Venous Blood Potassium Urine Color Urine Clarity Urine pH Ur Specific [place] Urine Protein Urine Glucose (UA) Urine Ketones Urine Blood Urine Nitrate Urine Bilirubin Urine Urobilinogen Ur Leukocyte Esterase Urine RBC (Auto) Urine Microscopic WBC Ur Squamous Epith Cells Urine Bacteria Salicylates Urine Opiates Screen Positive H Urine Methadone Screen Negative Acetaminophen < 10.0 L Ur Barbiturates Screen Negative Ur Phencyclidine Scrn Negative Ur Amphetamines Screen Negative U Benzodiazepines Scrn Negative U Oth Cocaine Metabols Negative U Cannabinoids Screen Negative Alcohol, Quantitative < 10 09/09/17 12:47 WBC RBC Hgb Hct MCV MCH MCHC RDW Plt Count MPV Neut % (Auto) Lymph % (Auto) [place] % (Auto) Eos % (Auto) Baso % (Auto) Neut # (Auto) Lymph # (Auto) [place] # (Auto) Eos # (Auto) Baso # (Auto) PT INR APTT pO2 VBG pH VBG pCO2 VBG HCO3 VBG Total CO2 VBG O2 Sat (Calc) VBG Base Excess VBG Potassium Sodium Chloride Glucose Lactate FiO2 Potassium Carbon Dioxide Anion Gap BUN Creatinine Est GFR ( Amer) Est GFR (Non-Af Amer) POC Glucose (mg/dL) Random Glucose Calcium Phosphorus Magnesium Total Bilirubin AST ALT Alkaline Phosphatase Total Creatine Kinase Troponin I NT-Pro-B Natriuret Pep Total Protein Albumin Globulin Albumin/Globulin Ratio Vitamin B12 TSH 3rd Generation Venous Blood Potassium Urine Color Urine Clarity Urine pH Ur Specific [place] Urine Protein Urine Glucose (UA) Urine Ketones Urine Blood Urine Nitrate Urine Bilirubin Urine Urobilinogen Ur Leukocyte Esterase Urine RBC (Auto) Urine Microscopic WBC Ur Squamous Epith Cells Urine Bacteria Salicylates < 1.0 Urine Opiates Screen Urine Methadone Screen Acetaminophen Ur Barbiturates Screen Ur Phencyclidine Scrn Ur Amphetamines Screen U Benzodiazepines Scrn U Oth Cocaine Metabols U Cannabinoids Screen Alcohol, Quantitative EKG/Cardiology Studies: Cardiology / EKG Studies 09/09/17 04:08 ELECTROCARDIOGRAM Stat Comment: Mode Of Transportation: Reason For Exam: Sepsis Patient Fingerstick Blood Sugar Results: 79 Review of Systems - Review of Systems Review of Systems: Denies Cp, SOB, nausea, abdominal pain at this eval, however very limited ROS evaluation because AMS Critical Care Progress Note - Nutrition Nutrition: Nutrition Category Date Time Status NPO Diet [DIET] Diets 09/09/17 Lunch Ordered Assessment/Plan - Assessment and Plan (Free Text) Assessment: 57 y/o F with extensive PMHx including DM, HTN, Hyperlipidemia, PVD, S/P right BKA, Seizure disorder, Carotid stenosis admitted with altered mental status, and possible opioid intoxication. Plan: Altered Mental status -ICU unit -possible 2/2 Opioid intoxication as per history from ER's attending (patient poor historian at this time because AMS) -Recent use. Urine toxicology positive x opioid -patient responsive to Narcan IVP -Blood sugar level 79 mg/dl on arrival -oxygen saturation 98-100 % in Oxygen @ 2 LPM via NC -Keep airway protection -Continuous cardiorespiratory monitoring -Monitor mental status -Oxygen Saturation monitoring -c/w Oxygen @ 2 LPM via NC -repeat Naloxone 1 mg IVP, followed by drip @ 0.4 mg/hr -f/u cultures and procalcitonin results -f/u Acetaminophen levels -S/p Naloxone drip: 4 mg in NS @ 130 ml/hr -S/p Naloxone 0.4 mg IVP x 3 in ER -Head CT scan reported as no evidence of acute intracranial findings Acute kidney injury -Prerenal vs Renal vs Combination -No oliguria o Anuria at this time -Normal Creatinine 0.8 on 08/13/17 -BUN/Cr on current admission elevated: 78/4.1 -CPK 471 -Give 1L NS bolus -After bolus start D5% NS @ 150 ml/hr -repeat BUN/Cr -f/u Sodium, lytes, chloride, and eosinophils in urine -s/p 3 L in ER -Recommended Nephrology consult -Echo on 01/09/17 reported as normal LV function, wall motion and EF Hypotension -Dehydration vs opioid overdose vs combination -Give 1L NS bolus -s/p 3 L in ER -f/u BP Leukocytosis -afebrile -WBC:14 on admission -UA positive x large leukocyte, mod blood, elevated WBC -c/w empiric ceftriaxone 2 gm IV daily by primary team -f/u Urine culture and Blood Culture -f/u Procalcitonin -repeat CBC -CXR reported finding of right lung atelectasis or infiltrate -s/p Unasyn, Azithromycin IV once in ER Diabetes Mellitus -Held home insulin for now -BSL 79 on arrival -NPO for now because AMS -hypoglycemic protocol Hypertension -Held anti-HTN meds for now because hypotension -BP monitoring DVT prophylaxis -SCDs for now will consider Heparin 5000 units Q12 because impaired renal function -platelets WNL - Date & Time Date: 09/09/17 Time: 15:00 <Kenneth Terry - Last Filed: 09/09/17 17:38> CCU Subjective - Physician Review Subjective (Free Text): 57F with extensive medical history, presented to ER with lethargy post fall at home. CT Head negative for acute pathology. Possible opioid use and given trial of Narcan IVP with subsequent arousal. Given a 2nd dose of Narcan with similar improvement in neuromental status, and reiterated a third time with a 3rd dose of IV Narcan. As patient became more awake and aroused, BP levels improved as well. Discussed with FM team and ER to place patient on continuous Narcan drip. Upon transfer to ICU, informed by ER Nurse than initial Narcan drip has been completed over a 2 hour period. Patient still appears drowsy and only opens eyes to name calling, but not interactive. Other VS and I/Os reviewed. Donis placed and 500ml urine output noted, she has recd approx. 3 liters NSS in ER. ROS: No other pertinent negs or positives on 10+ system review. PMSFH: All other Nursing and physician documentation reviewed to date; no new pertinent info noted relevant to current medical problems. CXR: ( my interp): horizontal R basilar infiltrate / atelectasis. CT Head: results reviewed: negative for acute changes. IMPRESSION / MAJOR PROBLEMS NOW: 1. Lethargy / Obtundation 2 Opioid Overdosage vs other etiol: h/o seizure Disorder 2. Azotemia, r/o ATN TED versus Opioid Nephropathy, or Rhabdo 3. RLL Pneumonia, possible Aspiration. PLAN; 1. Would re-bolus Narcan again to resume Narcan drip, until sustained wakeful state has been achieved. 2. Neurochecks, Seizure precautions, HOB elevation. Given h/o peripheral vascular disease, repeat brain imaging after 24h to look for occult CVA. 3. Renal studies with US Kidneys, UA, Urine lytes, urine eosinophils; IVF hydration after 4 liters fluid bolus. 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 Consider formal Nephrology eval. 4. Repeat CXR or CT Chest to further delineate R lung findings. Mild WBC elevation, empiric abxs started in ED.
[2017-09-09] MEDS ORDERED: Dextrose 50% SYRINGE Inj (50 ml) IV PRN (15:41)
[2017-09-09] MEDS ORDERED: Glucagon Recombinant 1 mg Inj IM PRN (15:41)
[2017-09-09] MEDS: DEXTROSE 5% IVPB SCH (16:06)
[2017-09-09] MEDS: WATER IVPB SCH (16:06)
[2017-09-09] MEDS: NALOXONE HCL IVPB SCH (16:06)
[2017-09-09 16:59] LABS: CALCIUM 7.8 mg/dL (8.4-10.2)
[2017-09-09 17:30] LABS: FOLATE 5.1 ng/mL
[2017-09-09 18:51] VITALS: BMI 27.3
--- NOTE | 2017-09-09 21:55 | CARD ---
APPROVED REPORT EKG Measurement Heart [id number] <Conclusion> Normal sinus rhythm Cannot rule out Anterior infarct, age undetermined Abnormal ECG
[2017-09-09] MEDS: Dextrose 5%/0.9% NS 1,000 ML IV SCH (22:22)
[2017-09-10] MEDS ORDERED: Naloxone 4 MG in Sodium Chloride 0.9% 250 ML IV SCH (01:00)
[2017-09-10] MEDS: WATER IVPB SCH ×2 (02:24→12:20)
[2017-09-10] MEDS: NALOXONE HCL IVPB SCH ×2 (02:24→12:20)
[2017-09-10] MEDS: DEXTROSE 5% IVPB SCH ×2 (02:24→12:20)
[2017-09-10] MEDS: Dextrose 5%/0.9% NS 1,000 ML IV SCH (04:59)
[2017-09-10 05:39] LABS: BASO % 0.3 % (0.0-2.0); EOS # 0.1 K/uL (0.0-0.7); EOS % 0.9 % (0.0-4.0); HEMOGLOBIN 11.3 g/dL (12.0-16.0); LYMPH # 0.5 K/uL (1.0-4.3); LYMPH % 7.4 % (20.0-40.0); MEAN CORPUSCULAR HEMOGLOBIN 33.1 pg (27.0-31.0); MEAN CORPUSCULAR HGB CONC 33.8 g/dL (33.0-37.0); MEAN PLATELET VOLUME 10.3 fl (7.2-11.7); MONO # 0.7 K/uL (0.0-0.8); MONO % 10.4 % (0.0-10.0); NEUT # 5.4 K/uL (1.8-7.0); PLATELET COUNT 123 K/uL (130-400); RBC 3.41 Mil/uL (3.80-5.20); RED CELL DISTRIBUTION WIDTH 13.3 % (11.5-14.5); WHITE BLOOD COUNT 6.7 K/uL (4.8-10.8)
[2017-09-10 06:03] LABS: BLOOD UREA NITROGEN 38 mg/dl (7-17); CALCIUM 8.3 mg/dL (8.4-10.2); GFR AFRICAN-AMERICAN > 60; GFR NON-AFRICAN AMERICAN > 60
--- NOTE | 2017-09-10 09:24 | CP.PCM.PN ---
Subjective - Date & Time of Evaluation Date of Evaluation: 09/10/17 Time of Evaluation: 09:21 Objective - Vital Signs/Intake and Output Vital Signs (last 24 hours): Temp Pulse Resp BP Pulse Ox 98.4 F 74 16 139/49 L 97 09/10/17 08:00 09/10/17 08:00 09/10/17 08:00 09/10/17 08:00 09/10/17 08:00 Intake and Output: 09/10/17 09/10/17 06:59 18:59 Intake Total 2400 Output Total 2150 Balance 250 - Medications Medications: Current Medications Dextrose (Dextrose 50% Inj) 0 ml IV STAT PRN; Protocol PRN Reason: Hypoglycemia Protocol Dextrose (Glutose 15) 0 gm PO ONCE PRN; Protocol PRN Reason: Hypoglycemia Protocol Glucagon (Glucagen Diagnostic Kit) 0 mg IM STAT PRN; Protocol PRN Reason: Hypoglycemia Protocol Ceftriaxone Sodium 2 gm/ (Sodium Chloride) 100 mls @ 100 mls/hr IVPB DAILY MARII PRN Reason: Protocol Last Admin: 09/09/17 09:18 Dose: 100 mls/hr Sodium Chloride (Sodium Chloride 0.9%) 1,000 mls @ 999 mls/hr IV .Q1H1M MARII Stop: 09/10/17 14:40 Last Admin: 09/09/17 14:45 Dose: 999 mls/hr Naloxone HCl 4 mg/ Dextrose 504 mls @ 50.4 mls/hr IVPB .Q10H MARII PRN Reason: 0.4 MG/HR Stop: 09/10/17 15:01 Last Admin: 09/10/17 02:24 Dose: 50.4 mls/hr Azithromycin 500 mg/ Sodium (Chloride) 250 mls @ 250 mls/hr IVPB DAILY MARII PRN Reason: Protocol - Labs Labs: 09/10/17 04:55 09/10/17 04:55 PT 11.1 Seconds (9.8-13.1) 09/09/17 04:35 INR 1.0 (0.9-1.2) 09/09/17 04:35 APTT 30.1 Seconds (25.6-37.1) 09/09/17 04:35
--- NOTE | 2017-09-10 10:09 | CP.PCM.CON ---
History of Present Illness - History of Present Illness History of Present Illness: Patient is a 57 years of age was called to see for abnormal kidney function. The history was taken from the medical record and from the patient is not giving good history. On the history from the medical observer noted that she was taken over dose narcotics. And she was started on Narcan drips and in the emergency room the medication has been noted in the medical record as follow 57 y/o F with PMH including DM2, HTN, Carotid stenosis s/p endarterectomy presented to ED by EMS due to weakness and lethargy. At time of assessment, patient extremely fatigued and constantly falling asleep so history was obtained via chart and patient. According to family, patient had approximately 6 hours of progressive lethargy when she tried to go to the restroom and called for help. Family called EMS and at time of ED assessment she was found to have pinpoint pupils. She was given 4mg of Narcan and became more alert and responsive. At time of this personal lines underwriter's assessment, patient was very sleepy and stated "I took something I wasn't supposed to" when asked for clarification, she states she may have taken more than her prescribed amount of pain medications. In addition, a creatinine of 4.1 was noted, which is a departure from her baseline of 0.8, one month ago. PMD: Unknown/[facility] ED Course: Leukocytosis of 14.8 was detected with no left shift CMP revealed elevated creatinine of 4.1 and slightly elevated LFTs Troponin x1 negative Urine drug screen notable for opiates only Acetaminophen level and Salicylate levels WNL Serum ETOH negative CPK elevated at 471 TSH WNL Procalcitonin pending Blood culture/Urine culture collected CT Head: No acute intracranial findings CXR: Right lung base atelectasis/infiltrate Narcan 2mg IV x3 doses given Narcan drip of 2mg/hr started 3L normal saline bolus given Empiric ceftriaxone 2gm IV and azithromycin 500mg given Review of Systems - Constitutional Constitutional: As Per HPI - EENT Eyes: As Per HPI - Cardiovascular Cardiovascular: As Per HPI. absent: Chest Pain, Dyspnea, Orthopnea - Respiratory Respiratory: absent: Cough, Hemoptysis - Gastrointestinal Gastrointestinal: Abdominal Pain, Nausea. absent: Coffee Ground Emesis - Musculoskeletal Musculoskeletal: Muscle Weakness. absent: Back Pain, Numbness - Neurological Neurological: Confusion, Disequilibrium - Psychiatric Psychiatric: As Per HPI - Endocrine Endocrine: Fatigue - Hematologic/Lymphatic Hematologic: absent: Easy Bleeding Past Patient History - Infectious Disease Hx of Infectious Diseases: None - Past Medical History & Family History Past Medical History?: Yes - Past Social History Smoking Status: Heavy Smoker > 10 Cigarettes Daily Drugs: Prescription medications (Prescribed prescription opiates for chronic pain) Home Situation {Lives}: With Family - CARDIAC Hx Congestive Heart Failure: Yes Hx Hypercholesterolemia: Yes Hx Hypertension: Yes - PULMONARY Hx Asthma: Yes - NEUROLOGICAL Hx Seizures: No - HEENT Hx HEENT Problems: No - RENAL Hx Chronic Kidney Disease: No - ENDOCRINE/METABOLIC Hx Diabetes Mellitus Type 2: Yes - HEMATOLOGICAL/ONCOLOGICAL Hx Anemia: Yes Hx Human Immunodeficiency Virus (HIV): No - INTEGUMENTARY Hx Dermatological Problems: No - MUSCULOSKELETAL/RHEUMATOLOGICAL Hx Arthritis: Yes - GASTROINTESTINAL Hx Gastrointestinal Disorders: No Hx Gastroesophageal Reflux: Yes - GENITOURINARY/GYNECOLOGICAL Hx Sexually Transmitted Disorders: No - PSYCHIATRIC Hx Anxiety: Yes Hx Depression: Yes - SURGICAL HISTORY Hx Appendectomy: Yes Hx Carotid Endarterectomy: Yes Hx Cholecystectomy: Yes - ANESTHESIA Hx Anesthesia: Yes Hx Anesthesia Reactions: No Hx Malignant Hyperthermia: No Meds Allergies/Adverse Reactions: Allergies Allergy/AdvReac Type Severity Reaction Status Date / Time vancomycin AdvReac ITCHING Verified 09/09/17 04:39 - Medications Medications: Current Medications Dextrose (Dextrose 50% Inj) 0 ml IV STAT PRN; Protocol PRN Reason: Hypoglycemia Protocol Dextrose (Glutose 15) 0 gm PO ONCE PRN; Protocol PRN Reason: Hypoglycemia Protocol Glucagon (Glucagen Diagnostic Kit) 0 mg IM STAT PRN; Protocol PRN Reason: Hypoglycemia Protocol Ceftriaxone Sodium 2 gm/ (Sodium Chloride) 100 mls @ 100 mls/hr IVPB DAILY MARII PRN Reason: Protocol Last Admin: 09/09/17 09:18 Dose: 100 mls/hr Sodium Chloride (Sodium Chloride 0.9%) 1,000 mls @ 999 mls/hr IV .Q1H1M MARII Stop: 09/10/17 14:40 Last Admin: 09/09/17 14:45 Dose: 999 mls/hr Naloxone HCl 4 mg/ Dextrose 504 mls @ 50.4 mls/hr IVPB .Q10H MARII PRN Reason: 0.4 MG/HR Stop: 09/10/17 15:01 Last Admin: 09/10/17 02:24 Dose: 50.4 mls/hr Azithromycin 500 mg/ Sodium (Chloride) 250 mls @ 250 mls/hr IVPB DAILY MARII PRN Reason: Protocol Physical Exam - Constitutional Appears: No Acute Distress - ENT Exam ENT Exam: Mucous Membranes Moist - Neck Exam Neck exam: Negative for: Lymphadenopathy - Respiratory Exam Respiratory Exam: NORMAL BREATHING PATTERN. absent: Chest Wall Tenderness, Rales, Rhonchi - Cardiovascular Exam Cardiovascular Exam: absent: Gallop, JVD, Rubs - GI/Abdominal Exam GI & Abdominal Exam: Normal Bowel Sounds. absent: Guarding - Extremities Exam Extremities exam: Negative for: calf tenderness - Back Exam Back exam: absent: CVA tenderness (L), CVA tenderness (R) - Neurological Exam Neurological exam: Altered Results - Vital Signs Recent Vital Signs: Last Vital Signs Temp 98.4 F 09/10/17 08:00 Pulse 74 09/10/17 08:00 Resp 16 09/10/17 08:00 BP 139/49 L 09/10/17 08:00 Pulse Ox 97 09/10/17 08:00 - Labs Result Diagrams: 09/10/17 04:55 09/10/17 04:55 Labs: Laboratory Results - last 24 hr 09/09/17 09/09/17 09/09/17 12:00 12:00 12:00 WBC RBC Hgb Hct MCV MCH MCHC RDW Plt Count MPV Neut % (Auto) Lymph % (Auto) [place] % (Auto) Eos % (Auto) Baso % (Auto) Neut # (Auto) Lymph # (Auto) [place] # (Auto) Eos # (Auto) Baso # (Auto) Sodium Potassium Chloride Carbon Dioxide Anion Gap BUN Creatinine Est GFR ( Amer) Est GFR (Non-Af Amer) POC Glucose (mg/dL) Random Glucose Calcium Total Creatine Kinase 471 H Vitamin B12 576 Folate 5.1 Procalcitonin 0.31 TSH 3rd Generation 0.49 Urine Eosinophils Ur Random Sodium Ur Random Potassium Salicylates Acetaminophen < 10.0 L Alcohol, Quantitative < 10 HIV 1&2 Antibody Screen 09/09/17 09/09/17 09/09/17 12:00 12:47 16:10 WBC RBC Hgb Hct MCV MCH MCHC RDW Plt Count MPV Neut % (Auto) Lymph % (Auto) [place] % (Auto) Eos % (Auto) Baso % (Auto) Neut # (Auto) Lymph # (Auto) [place] # (Auto) Eos # (Auto) Baso # (Auto) Sodium Potassium Chloride Carbon Dioxide Anion Gap BUN Creatinine Est GFR ( Amer) Est GFR (Non-Af Amer) POC Glucose (mg/dL) 141 H Random Glucose Calcium Total Creatine Kinase Vitamin B12 Folate Procalcitonin TSH 3rd Generation Urine Eosinophils Ur Random Sodium Ur Random Potassium Salicylates < 1.0 Acetaminophen Alcohol, Quantitative HIV 1&2 Antibody Screen Negative 09/09/17 09/09/17 09/09/17 16:34 18:30 18:30 WBC RBC Hgb Hct MCV MCH MCHC RDW Plt Count MPV Neut % (Auto) Lymph % (Auto) [place] % (Auto) Eos % (Auto) Baso % (Auto) Neut # (Auto) Lymph # (Auto) [place] # (Auto) Eos # (Auto) Baso # (Auto) Sodium 136 Potassium 4.7 Chloride 105 Carbon Dioxide 21 L Anion Gap 15 BUN 64 H Creatinine 2.0 H Est GFR ( Amer) 31 Est GFR (Non-Af Amer) 26 POC Glucose (mg/dL) Random Glucose 122 H Calcium 7.8 L Total Creatine Kinase Vitamin B12 Folate Procalcitonin TSH 3rd Generation Urine Eosinophils Negative Ur Random Sodium 62 Ur Random Potassium 25.5 Salicylates Acetaminophen Alcohol, Quantitative HIV 1&2 Antibody Screen 09/09/17 09/10/17 09/10/17 21:29 04:55 04:55 WBC 6.7 D RBC 3.41 L Hgb 11.3 L Hct 33.4 L MCV 98.0 MCH 33.1 H MCHC 33.8 RDW 13.3 Plt Count 123 L D MPV 10.3 Neut % (Auto) 81.0 H Lymph % (Auto) 7.4 L [place] % (Auto) 10.4 H Eos % (Auto) 0.9 Baso % (Auto) 0.3 Neut # (Auto) 5.4 Lymph # (Auto) 0.5 L [place] # (Auto) 0.7 Eos # (Auto) 0.1 Baso # (Auto) 0.0 Sodium 136 Potassium 4.5 Chloride 108 H Carbon Dioxide 23 Anion Gap 10 BUN 38 H Creatinine 0.9 Est GFR ( Amer) > 60 Est GFR (Non-Af Amer) > 60 POC Glucose (mg/dL) 161 H Random Glucose 248 H Calcium 8.3 L Total Creatine Kinase Vitamin B12 Folate Procalcitonin TSH 3rd Generation Urine Eosinophils Ur Random Sodium Ur Random Potassium Salicylates Acetaminophen Alcohol, Quantitative HIV 1&2 Antibody Screen 09/10/17 06:32 WBC RBC Hgb Hct MCV MCH MCHC RDW Plt Count MPV Neut % (Auto) Lymph % (Auto) [place] % (Auto) Eos % (Auto) Baso % (Auto) Neut # (Auto) Lymph # (Auto) [place] # (Auto) Eos # (Auto) Baso # (Auto) Sodium Potassium Chloride Carbon Dioxide Anion Gap BUN Creatinine Est GFR ( Amer) Est GFR (Non-Af Amer) POC Glucose (mg/dL) 226 H Random Glucose Calcium Total Creatine Kinase Vitamin B12 Folate Procalcitonin TSH 3rd Generation Urine Eosinophils Ur Random Sodium Ur Random Potassium Salicylates Acetaminophen Alcohol, Quantitative HIV 1&2 Antibody Screen Assessment & Plan (1) TED (acute kidney injury) Assessment and Plan: Acute kidney injury Most likely related to severe dehydration Kidney function has been improving and possibly recovering. continue gentle hydration Severe hyperphosphatemia on admission to repeat serum phosphorus most likely would be improving. Possible pneumonia left lower lobe infiltrate Patient is awakening and improving Patient is diabetic and she is on medication. Patient has also hypertension receiving antihypertensive medication as noted Status: Acute
[2017-09-10 10:17] LABS: EOSINOPHIL 4 % (0-7); LYMPHOCYTE 4 % (20-50); MONOCYTE 7 % (0-10); NEUTROPHIL 85 % (42-75); TOTAL CELLS COUNTED 100
[2017-09-10 10:19] LABS: PLATELET ESTIMATE SLIGHTLY DECREASED (NORMAL)
[2017-09-10 10:20] LABS: HYPOCHROMIC SLIGHT; TOXIC GRANULATION PRESENT
[2017-09-10 10:21] LABS: LARGE PLATELETS PRESENT
--- NOTE | 2017-09-10 11:16 | US ---
PROCEDURE: Ultrasonography renal arterial evaluation HISTORY: acute kidney failure COMPARISON: Correlation is made to CT angiography of the abdomen, pelvis and bilateral lower extremities performed 03/14/2017. TECHNIQUE: Real-time ultrasonography evaluation of the renal arteries were performed. Comparison is made to the aorta. FINDINGS: AORTA: Patent. Peak systolic velocity 88.0 centimeters/second RIGHT RENAL ARTERY: Renal artery to aorta ratio: 4.1 * Origin: Patent. Peak systolic velocity 359 centimeters/second * Proximal segment: Patent. Peak systolic velocity 247 centimeters/second * Mid segment: Patent. Peak systolic velocity 145 centimeters/second * Distal segment: Patent. Peak systolic velocity 116 centimeters/second LEFT RENAL ARTERY: Renal artery to aorta ratio: 2.7 * Origin: Patent. Peak systolic velocity 260 centimeters/second * Proximal segment: Patent. Peak systolic velocity 238 centimeters/second * Mid segment: Patent. Peak systolic velocity 237 centimeters/second * Distal segment: Patent. Peak systolic velocity 160 centimeters/second IMPRESSION: Elevated peak systolic velocities involving the ostial and proximal portions of the right renal artery compatible with stenosis. Elevated peak systolic velocities involving the ostial, proximal and mid portions of the left renal artery compatible with stenosis.
--- NOTE | 2017-09-10 11:43 | CP.CCUPN ---
<TorinjaykacieKiera - Last Filed: 09/10/17 12:31> CCU Subjective - Physician Review Subjective (Free Text): 09/10/17 57 y/o F with extensive PMHx including DM, HTN, Hyperlipidemia, PVD, S/P right BKA, Seizure disorder, Carotid stenosis s/p endarterectomy admitted with altered mental status secondary to opioid intoxication. Patient was seen and examined in ICU with attending communications professor, and case discussed during rounds. Patient was seen alert, oriented x 3, asking for breakfast. Donis in place with turbid urine, and no evidence of gross hematuria. Has been afebrile, oxygen saturation 97-99 % in room air, normal respirations and rate, and BP improving. Getting Narcan drip. Denies cP, SOB, N /V, pain, dizziness, headaches, abdominal pain or other complains at this evaluation. Critical Care Time Spent (in minutes): 35 CCU Objective - Vital Signs / Intake & Output Vital Signs (Last 4 hours): Vital Signs Temp Pulse Resp BP Pulse Ox 09/10/17 08:00 98.4 F 74 16 139/49 L 97 Intake and Output (Last 8hrs): Intake & Output 09/09/17 09/10/17 09/10/17 22:59 06:59 14:59 Intake Total 2400 1600 Output Total 2350 1600 Balance 50 0 Weight 180 lb Intake: IV 1400 1600 Intake, Piggyback 1000 Output: Urine 2350 1600 Urethral (Donis) 2350 1600 Other: # Bowel Movements 0 - Physical Exam Head: Positive for: Atraumatic, Normocephalic Pupils: Positive for: PERRL Extroacular Muscles: Positive for: EOMI Respiratory/Chest: Positive for: Clear to Auscultation, Good Air Exchange. Negative for: Respiratory Distress, Wheezes, Rales, Rhonchi, Tachypneic Cardiovascular: Positive for: Regular Rate and Rhythm, Normal S1, S2 Abdomen: Positive for: Normal Bowel Sounds. Negative for: Tenderness, Distention, Rebound, Guarding Lower Extremity: Positive for: Other (Right BKA, no edema in left lower extremities, no evidence of foot ulcers). Negative for: Edema Neurological: Positive for: Other Skin: Positive for: Warm, Dry, Pale Psychiatric: Positive for: Alert, Oriented x 3 - Medications Active Medications: Active Medications Generic Name Dose Route Start Last Admin Trade Name Freq PRN Reason Stop Dose Admin Clopidogrel Bisulfate 75 mg 09/10/17 11:00 Plavix PO DAILY MARII Dextrose 0 ml 09/09/17 15:41 Dextrose 50% Inj IV STAT PRN Hypoglycemia Protocol Protocol Dextrose 0 gm 09/09/17 15:41 Glutose 15 PO ONCE PRN Hypoglycemia Protocol Protocol Divalproex Sodium 750 mg 09/10/17 11:00 Jesus Pepper(*Bid*) PO BID MARII Glucagon 0 mg 09/09/17 15:41 Glucagen Diagnostic Kit IM STAT PRN Hypoglycemia Protocol Protocol Ceftriaxone Sodium 2 gm/ 100 mls @ 100 mls/hr 09/09/17 09:00 09/09/17 09:18 Sodium Chloride IVPB 100 mls/hr DAILY MARII Administration Protocol Naloxone HCl 4 mg/ Dextrose 504 mls @ 50.4 mls/hr 09/09/17 15:00 09/10/17 02: 24 IVPB 09/10/17 15:01 50.4 mls/hr .Q10H MARII Administration 0.4 MG/HR Azithromycin 500 mg/ Sodium 250 mls @ 250 mls/hr 09/10/17 09:00 Chloride IVPB DAILY MARII Protocol Insulin Detemir 10 units 09/10/17 22:00 Levemir SC HS [facility] Pravastatin Sodium 40 mg 09/10/17 22:00 Pravachol PO HS [facility] - Patient Studies Lab Studies: Microbiology Studies 09/09/17 04:10 Blood Culture - Preliminary Blood NO GROWTH AFTER 24 HOURS 09/09/17 04:40 Blood Culture - Preliminary Blood NO GROWTH AFTER 24 HOURS Lab Studies 09/10/17 09/10/17 09/10/17 Range/Units 06:32 04:55 04:55 WBC 6.7 D (4.8-10.8) K/uL RBC 3.41 L (3.80-5.20) Mil/uL Hgb 11.3 L (12.0-16.0) g/dL Hct 33.4 L (34.0-47.0) % MCV 98.0 (81.0-99.0) fl MCH 33.1 H (27.0-31.0) pg MCHC 33.8 (33.0-37.0) g/dL RDW 13.3 (11.5-14.5) % Plt Count 123 L D (130-400) K/uL MPV 10.3 (7.2-11.7) fl Neut % (Auto) 81.0 H (50.0-75.0) % Lymph % (Auto) 7.4 L (20.0-40.0) % [place] % (Auto) 10.4 H (0.0-10.0) % Eos % (Auto) 0.9 (0.0-4.0) % Baso % (Auto) 0.3 (0.0-2.0) % Neut # (Auto) 5.4 (1.8-7.0) K/uL Lymph # (Auto) 0.5 L (1.0-4.3) K/uL [place] # (Auto) 0.7 (0.0-0.8) K/uL Eos # (Auto) 0.1 (0.0-0.7) K/uL Baso # (Auto) 0.0 (0.0-0.2) K/uL Neutrophils % (Manual) 85 H (42-75) % Lymphocytes % (Manual) 4 L (20-50) % Monocytes % (Manual) 7 (0-10) % Eosinophils % (Manual) 4 (0-7) % Toxic Granulation Present Platelet Estimate Slightly decreased L (NORMAL) Large Platelets Present Hypochromasia (manual) Slight Basophilic Stippling Slight Sodium 136 (132-148) mmol/l Potassium 4.5 (3.6-5.0) MMOL/L Chloride 108 H (98-107) mmol/L Carbon Dioxide 23 (22-30) mmol/L Anion Gap 10 (10-20) BUN 38 H (7-17) mg/dl Creatinine 0.9 (0.7-1.2) mg/dl Est GFR ( Amer) > 60 Est GFR (Non-Af Amer) > 60 POC Glucose (mg/dL) 226 H (65-110) mg/dL Random Glucose 248 H (65-105) mg/dL Calcium 8.3 L (8.4-10.2) mg/dL Total Creatine Kinase (30-135) U/L Vitamin B12 (239-931) pg/mL Folate ng/mL Procalcitonin (0.19-0.49) NG/ML TSH 3rd Generation (0.46-4.68) mIU/ML Urine Eosinophils (NEGATIVE) Ur Random Sodium mmol/L Ur Random Potassium mmol/L Urine Chloride (32-290) mmol/L Salicylates mg/dl Acetaminophen (10.0-30.0) ug/ml Alcohol, Quantitative (0-10) mg/dl HIV 1&2 Antibody Screen (NEGATIVE) 09/09/17 09/09/17 09/09/17 Range/Units 21:29 18:30 18:30 WBC (4.8-10.8) K/uL RBC (3.80-5.20) Mil/uL Hgb (12.0-16.0) g/dL Hct (34.0-47.0) % MCV (81.0-99.0) fl MCH (27.0-31.0) pg MCHC (33.0-37.0) g/dL RDW (11.5-14.5) % Plt Count (130-400) K/uL MPV (7.2-11.7) fl Neut % (Auto) (50.0-75.0) % Lymph % (Auto) (20.0-40.0) % [place] % (Auto) (0.0-10.0) % Eos % (Auto) (0.0-4.0) % Baso % (Auto) (0.0-2.0) % Neut # (Auto) (1.8-7.0) K/uL Lymph # (Auto) (1.0-4.3) K/uL [place] # (Auto) (0.0-0.8) K/uL Eos # (Auto) (0.0-0.7) K/uL Baso # (Auto) (0.0-0.2) K/uL Neutrophils % (Manual) (42-75) % Lymphocytes % (Manual) (20-50) % Monocytes % (Manual) (0-10) % Eosinophils % (Manual) (0-7) % Toxic Granulation Platelet Estimate (NORMAL) Large Platelets Hypochromasia (manual) Basophilic Stippling Sodium (132-148) mmol/l Potassium (3.6-5.0) MMOL/L Chloride (98-107) mmol/L Carbon Dioxide (22-30) mmol/L Anion Gap (10-20) BUN (7-17) mg/dl Creatinine (0.7-1.2) mg/dl Est GFR ( Amer) Est GFR (Non-Af Amer) POC Glucose (mg/dL) 161 H (65-110) mg/dL Random Glucose (65-105) mg/dL Calcium (8.4-10.2) mg/dL Total Creatine Kinase (30-135) U/L Vitamin B12 (239-931) pg/mL Folate ng/mL Procalcitonin (0.19-0.49) NG/ML TSH 3rd Generation (0.46-4.68) mIU/ML Urine Eosinophils (NEGATIVE) Ur Random Sodium 62 mmol/L Ur Random Potassium 25.5 mmol/L Urine Chloride 43 (32-290) mmol/L Salicylates mg/dl Acetaminophen (10.0-30.0) ug/ml Alcohol, Quantitative (0-10) mg/dl HIV 1&2 Antibody Screen (NEGATIVE) 09/09/17 09/09/17 09/09/17 Range/Units 18:30 16:34 16:10 WBC (4.8-10.8) K/uL RBC (3.80-5.20) Mil/uL Hgb (12.0-16.0) g/dL Hct (34.0-47.0) % MCV (81.0-99.0) fl MCH (27.0-31.0) pg MCHC (33.0-37.0) g/dL RDW (11.5-14.5) % Plt Count (130-400) K/uL MPV (7.2-11.7) fl Neut % (Auto) (50.0-75.0) % Lymph % (Auto) (20.0-40.0) % [place] % (Auto) (0.0-10.0) % Eos % (Auto) (0.0-4.0) % Baso % (Auto) (0.0-2.0) % Neut # (Auto) (1.8-7.0) K/uL Lymph # (Auto) (1.0-4.3) K/uL [place] # (Auto) (0.0-0.8) K/uL Eos # (Auto) (0.0-0.7) K/uL Baso # (Auto) (0.0-0.2) K/uL Neutrophils % (Manual) (42-75) % Lymphocytes % (Manual) (20-50) % Monocytes % (Manual) (0-10) % Eosinophils % (Manual) (0-7) % Toxic Granulation Platelet Estimate (NORMAL) Large Platelets Hypochromasia (manual) Basophilic Stippling Sodium 136 (132-148) mmol/l Potassium 4.7 (3.6-5.0) MMOL/L Chloride 105 (98-107) mmol/L Carbon Dioxide 21 L (22-30) mmol/L Anion Gap 15 (10-20) BUN 64 H (7-17) mg/dl Creatinine 2.0 H (0.7-1.2) mg/dl Est GFR ( Amer) 31 Est GFR (Non-Af Amer) 26 POC Glucose (mg/dL) 141 H (65-110) mg/dL Random Glucose 122 H (65-105) mg/dL Calcium 7.8 L (8.4-10.2) mg/dL Total Creatine Kinase (30-135) U/L Vitamin B12 (239-931) pg/mL Folate ng/mL Procalcitonin (0.19-0.49) NG/ML TSH 3rd Generation (0.46-4.68) mIU/ML Urine Eosinophils Negative (NEGATIVE) Ur Random Sodium mmol/L Ur Random Potassium mmol/L Urine Chloride (32-290) mmol/L Salicylates mg/dl Acetaminophen (10.0-30.0) ug/ml Alcohol, Quantitative (0-10) mg/dl HIV 1&2 Antibody Screen (NEGATIVE) 09/09/17 09/09/17 09/09/17 Range/Units 12:47 12:00 12:00 WBC (4.8-10.8) K/uL RBC (3.80-5.20) Mil/uL Hgb (12.0-16.0) g/dL Hct (34.0-47.0) % MCV (81.0-99.0) fl MCH (27.0-31.0) pg MCHC (33.0-37.0) g/dL RDW (11.5-14.5) % Plt Count (130-400) K/uL MPV (7.2-11.7) fl Neut % (Auto) (50.0-75.0) % Lymph % (Auto) (20.0-40.0) % [place] % (Auto) (0.0-10.0) % Eos % (Auto) (0.0-4.0) % Baso % (Auto) (0.0-2.0) % Neut # (Auto) (1.8-7.0) K/uL Lymph # (Auto) (1.0-4.3) K/uL [place] # (Auto) (0.0-0.8) K/uL Eos # (Auto) (0.0-0.7) K/uL Baso # (Auto) (0.0-0.2) K/uL Neutrophils % (Manual) (42-75) % Lymphocytes % (Manual) (20-50) % Monocytes % (Manual) (0-10) % Eosinophils % (Manual) (0-7) % Toxic Granulation Platelet Estimate (NORMAL) Large Platelets Hypochromasia (manual) Basophilic Stippling Sodium (132-148) mmol/l Potassium (3.6-5.0) MMOL/L Chloride (98-107) mmol/L Carbon Dioxide (22-30) mmol/L Anion Gap (10-20) BUN (7-17) mg/dl Creatinine (0.7-1.2) mg/dl Est GFR ( Amer) Est GFR (Non-Af Amer) POC Glucose (mg/dL) (65-110) mg/dL Random Glucose (65-105) mg/dL Calcium (8.4-10.2) mg/dL Total Creatine Kinase (30-135) U/L Vitamin B12 (239-931) pg/mL Folate ng/mL Procalcitonin (0.19-0.49) NG/ML TSH 3rd Generation (0.46-4.68) mIU/ML Urine Eosinophils (NEGATIVE) Ur Random Sodium mmol/L Ur Random Potassium mmol/L Urine Chloride (32-290) mmol/L Salicylates < 1.0 mg/dl Acetaminophen < 10.0 L (10.0-30.0) ug/ml Alcohol, Quantitative (0-10) mg/dl HIV 1&2 Antibody Screen Negative (NEGATIVE) 09/09/17 09/09/17 Range/Units 12:00 12:00 WBC (4.8-10.8) K/uL RBC (3.80-5.20) Mil/uL Hgb (12.0-16.0) g/dL Hct (34.0-47.0) % MCV (81.0-99.0) fl MCH (27.0-31.0) pg MCHC (33.0-37.0) g/dL RDW (11.5-14.5) % Plt Count (130-400) K/uL MPV (7.2-11.7) fl Neut % (Auto) (50.0-75.0) % Lymph % (Auto) (20.0-40.0) % [place] % (Auto) (0.0-10.0) % Eos % (Auto) (0.0-4.0) % Baso % (Auto) (0.0-2.0) % Neut # (Auto) (1.8-7.0) K/uL Lymph # (Auto) (1.0-4.3) K/uL [place] # (Auto) (0.0-0.8) K/uL Eos # (Auto) (0.0-0.7) K/uL Baso # (Auto) (0.0-0.2) K/uL Neutrophils % (Manual) (42-75) % Lymphocytes % (Manual) (20-50) % Monocytes % (Manual) (0-10) % Eosinophils % (Manual) (0-7) % Toxic Granulation Platelet Estimate (NORMAL) Large Platelets Hypochromasia (manual) Basophilic Stippling Sodium (132-148) mmol/l Potassium (3.6-5.0) MMOL/L Chloride (98-107) mmol/L Carbon Dioxide (22-30) mmol/L Anion Gap (10-20) BUN (7-17) mg/dl Creatinine (0.7-1.2) mg/dl Est GFR ( Amer) Est GFR (Non-Af Amer) POC Glucose (mg/dL) (65-110) mg/dL Random Glucose (65-105) mg/dL Calcium (8.4-10.2) mg/dL Total Creatine Kinase 471 H (30-135) U/L Vitamin B12 576 (239-931) pg/mL Folate 5.1 ng/mL Procalcitonin 0.31 (0.19-0.49) NG/ML TSH 3rd Generation 0.49 (0.46-4.68) mIU/ML Urine Eosinophils (NEGATIVE) Ur Random Sodium mmol/L Ur Random Potassium mmol/L Urine Chloride (32-290) mmol/L Salicylates mg/dl Acetaminophen (10.0-30.0) ug/ml Alcohol, Quantitative < 10 (0-10) mg/dl HIV 1&2 Antibody Screen (NEGATIVE) Laboratory Results - last 24 hr 09/09/17 09/09/17 09/09/17 12:00 12:00 12:00 WBC RBC Hgb Hct MCV MCH MCHC RDW Plt Count MPV Neut % (Auto) Lymph % (Auto) [place] % (Auto) Eos % (Auto) Baso % (Auto) Neut # (Auto) Lymph # (Auto) [place] # (Auto) Eos # (Auto) Baso # (Auto) Neutrophils % (Manual) Lymphocytes % (Manual) Monocytes % (Manual) Eosinophils % (Manual) Toxic Granulation Platelet Estimate Large Platelets Hypochromasia (manual) Basophilic Stippling Sodium Potassium Chloride Carbon Dioxide Anion Gap BUN Creatinine Est GFR ( Amer) Est GFR (Non-Af Amer) POC Glucose (mg/dL) Random Glucose Calcium Total Creatine Kinase 471 H Vitamin B12 576 Folate 5.1 Procalcitonin 0.31 TSH 3rd Generation 0.49 Urine Eosinophils Ur Random Sodium Ur Random Potassium Urine Chloride Salicylates Acetaminophen < 10.0 L Alcohol, Quantitative < 10 HIV 1&2 Antibody Screen 09/09/17 09/09/17 09/09/17 12:00 12:47 16:10 WBC RBC Hgb Hct MCV MCH MCHC RDW Plt Count MPV Neut % (Auto) Lymph % (Auto) [place] % (Auto) Eos % (Auto) Baso % (Auto) Neut # (Auto) Lymph # (Auto) [place] # (Auto) Eos # (Auto) Baso # (Auto) Neutrophils % (Manual) Lymphocytes % (Manual) Monocytes % (Manual) Eosinophils % (Manual) Toxic Granulation Platelet Estimate Large Platelets Hypochromasia (manual) Basophilic Stippling Sodium Potassium Chloride Carbon Dioxide Anion Gap BUN Creatinine Est GFR ( Amer) Est GFR (Non-Af Amer) POC Glucose (mg/dL) 141 H Random Glucose Calcium Total Creatine Kinase Vitamin B12 Folate Procalcitonin TSH 3rd Generation Urine Eosinophils Ur Random Sodium Ur Random Potassium Urine Chloride Salicylates < 1.0 Acetaminophen Alcohol, Quantitative HIV 1&2 Antibody Screen Negative 09/09/17 09/09/17 09/09/17 16:34 18:30 18:30 WBC RBC Hgb Hct MCV MCH MCHC RDW Plt Count MPV Neut % (Auto) Lymph % (Auto) [place] % (Auto) Eos % (Auto) Baso % (Auto) Neut # (Auto) Lymph # (Auto) [place] # (Auto) Eos # (Auto) Baso # (Auto) Neutrophils % (Manual) Lymphocytes % (Manual) Monocytes % (Manual) Eosinophils % (Manual) Toxic Granulation Platelet Estimate Large Platelets Hypochromasia (manual) Basophilic Stippling Sodium 136 Potassium 4.7 Chloride 105 Carbon Dioxide 21 L Anion Gap 15 BUN 64 H Creatinine 2.0 H Est GFR ( Amer) 31 Est GFR (Non-Af Amer) 26 POC Glucose (mg/dL) Random Glucose 122 H Calcium 7.8 L Total Creatine Kinase Vitamin B12 Folate Procalcitonin TSH 3rd Generation Urine Eosinophils Negative Ur Random Sodium Ur Random Potassium Urine Chloride 43 Salicylates Acetaminophen Alcohol, Quantitative HIV 1&2 Antibody Screen 09/09/17 09/09/17 09/10/17 18:30 21:29 04:55 WBC 6.7 D RBC 3.41 L Hgb 11.3 L Hct 33.4 L MCV 98.0 MCH 33.1 H MCHC 33.8 RDW 13.3 Plt Count 123 L D MPV 10.3 Neut % (Auto) 81.0 H Lymph % (Auto) 7.4 L [place] % (Auto) 10.4 H Eos % (Auto) 0.9 Baso % (Auto) 0.3 Neut # (Auto) 5.4 Lymph # (Auto) 0.5 L [place] # (Auto) 0.7 Eos # (Auto) 0.1 Baso # (Auto) 0.0 Neutrophils % (Manual) 85 H Lymphocytes % (Manual) 4 L Monocytes % (Manual) 7 Eosinophils % (Manual) 4 Toxic Granulation Present Platelet Estimate Slightly decreased L Large Platelets Present Hypochromasia (manual) Slight Basophilic Stippling Slight Sodium Potassium Chloride Carbon Dioxide Anion Gap BUN Creatinine Est GFR ( Amer) Est GFR (Non-Af Amer) POC Glucose (mg/dL) 161 H Random Glucose Calcium Total Creatine Kinase Vitamin B12 Folate Procalcitonin TSH 3rd Generation Urine Eosinophils Ur Random Sodium 62 Ur Random Potassium 25.5 Urine Chloride Salicylates Acetaminophen Alcohol, Quantitative HIV 1&2 Antibody Screen 09/10/17 09/10/17 04:55 06:32 WBC RBC Hgb Hct MCV MCH MCHC RDW Plt Count MPV Neut % (Auto) Lymph % (Auto) [place] % (Auto) Eos % (Auto) Baso % (Auto) Neut # (Auto) Lymph # (Auto) [place] # (Auto) Eos # (Auto) Baso # (Auto) Neutrophils % (Manual) Lymphocytes % (Manual) Monocytes % (Manual) Eosinophils % (Manual) Toxic Granulation Platelet Estimate Large Platelets Hypochromasia (manual) Basophilic Stippling Sodium 136 Potassium 4.5 Chloride 108 H Carbon Dioxide 23 Anion Gap 10 BUN 38 H Creatinine 0.9 Est GFR ( Amer) > 60 Est GFR (Non-Af Amer) > 60 POC Glucose (mg/dL) 226 H Random Glucose 248 H Calcium 8.3 L Total Creatine Kinase Vitamin B12 Folate Procalcitonin TSH 3rd Generation Urine Eosinophils Ur Random Sodium Ur Random Potassium Urine Chloride Salicylates Acetaminophen Alcohol, Quantitative HIV 1&2 Antibody Screen Fingerstick Blood Sugar Results: 226 Review of Systems - Review of Systems All systems: reviewed and no additional remarkable complaints except (as per HPI ) Critical Care Progress Note - Nutrition Nutrition: Nutrition Category Date Time Status Diabetic [Consistent Carbohydrate] [DIET] Diets 09/10/17 Breakfast Active Assessment/Plan - Assessment and Plan (Free Text) Assessment: 57 y/o F with extensive PMHx including DM, HTN, Hyperlipidemia, PVD, S/P right BKA, Seizure disorder, Carotid stenosis admitted with altered mental status most likely opioid intoxication. Plan: Altered Mental status -resolving -alert, awake, oriented X 3 -most likely 2/2 Opioid intoxication -unclear how much opioid was taken -patient responsive to Naloxone -Monitor mental status -Oxygen Saturation monitoring -Oxygen saturation 97-99 % in room air today -BP coming up to her baseline -Cardiorespiratory status stable -Recommended transfer [facility] -Blood culture no growth in 24 hours -Procalcitonin normal -DC Narcan drip -No Acetaminophen levels -No salicylates levels -s/p Naloxone 1 mg IVP, followed by drip @ 0.4 mg/hr -S/p Naloxone drip: 4 mg in NS @ 130 ml/hr -S/p Naloxone 0.4 mg IVP x 3 in ER -Head CT scan reported as no evidence of acute intracranial findings Acute kidney injury -most likely 2/2 dehydration/prerenal -significantly improved after hydration, and improvement of BP -BUN/ Creatinine today: 38/0.9 ( 78/4.1 on admission) -CPK 471 -Normal Sodium, chloride and potassium in urine -Negative eoshinophils in urine -start PO intake -discontinue D5% NS @ 150 ml/h -s/p 4 L on 09/09/17 - Nephrology on consult by primary team. Recs appreciated. -Echo on 01/09/17 reported as normal LV function, wall motion and EF UTI -Noted on admission -UA positive x leukocyte est, high WBC, mod blood -urine Cx positive for gram neg khalida. Pending final report and sensitivity -on Ceftriaxone 2 gm IV daily Hypotension -resolved -Dehydration vs opioid overdose vs combination -s/p 4 L on 09/09/17 -BP coming up to her baseline -consider to resume home BP meds Leukocytosis -resolved, possible 2/2 hemoconcentration -afebrile -WBC:6.7. WNL today -f/u Procalcitonin -on Ceftriaxone 2 gm IV daily -Urine Cx positive x gram neg khalida. Pending final result w/ sensitivity -CXR reported finding of right lung atelectasis or infiltrate Diabetes Mellitus -start diabetic and heart healthy diet -accucheck -glycemic control with home meds as indicated -hypoglycemic protocol Hypertension -consider to resume home meds for BP control DVT prophylaxis -SCDs for now Consider Heparin 5000 units Q12 because impaired renal function -platelets WNL - Date & Time Date: 09/10/17 Time: 09:50 <Kenneth Terry - Last Filed: 09/10/17 17:35> CCU Subjective - Physician Review Subjective (Free Text): Attestation: Patient seen and examined at the bedside with Resident Dr. Belkys Serrano; and I agree with her outline of plans and management documented above as discussed on AM rounds reflecting my review of all applicable clinical data, and participation in the care of the patient throughout the day in ICU; August.
--- NOTE | 2017-09-10 12:04 | US ---
PROCEDURE: Ultrasound of the Kidneys HISTORY: TED COMPARISON: Correlations made to CT angiography of the abdomen, pelvis and bilateral lower extremities performed 03/14/2017. TECHNIQUE: Sonogram of the kidneys. FINDINGS: RIGHT KIDNEY: Measures: 12.9 x 5.6 x 4.9 cm. Normal in size, contour and echogenicity. No stone, solid mass lesion or hydronephrosis visualized. LEFT KIDNEY: Measures: 13.2 x 5.8 x 6.2 cm. Normal in size, contour and echogenicity. No stone, solid mass lesion or hydronephrosis visualized. OTHER FINDINGS: None. IMPRESSION: Unremarkable renal sonogram.
[2017-09-10] MEDS: Divalproex 250 mg DR(BID formulation) PO SCH ×2 (12:19→16:46)
[2017-09-10] MEDS: cefTRIAXone 2 GM in Sodium Chloride 0.9% 100 ML IVPB SCH (12:21)
--- NOTE | 2017-09-10 12:45 | CP.PCM.PN ---
Subjective - Date & Time of Evaluation Date of Evaluation: 09/10/17 Time of Evaluation: 07:20 - Subjective Subjective: Patient was seen and examined this morning. NAD, As per patient, she is feeling much better. Patient is alert, awake and oriented, feels hungry. Flowers placed, saturating well and BP wnl. On Narcan drip. Patient denies any dizziness, blurred vision, SOB, chest pain, palpitation or abdominal pain. No weakness/ numbness or tingling. Patient denies depress mood but appears flat affect. Objective - Vital Signs/Intake and Output Vital Signs (last 24 hours): Temp Pulse Resp BP Pulse Ox 98.4 F 85 13 144/62 99 09/10/17 08:00 09/10/17 10:00 09/10/17 10:00 09/10/17 10:00 09/10/17 10:00 Intake and Output: 09/10/17 09/10/17 06:59 18:59 Intake Total 2400 Output Total 2150 1000 Balance 250 -1000 - Medications Medications: Current Medications Clopidogrel Bisulfate (Plavix) 75 mg PO DAILY MARII Dextrose (Dextrose 50% Inj) 0 ml IV STAT PRN; Protocol PRN Reason: Hypoglycemia Protocol Dextrose (Glutose 15) 0 gm PO ONCE PRN; Protocol PRN Reason: Hypoglycemia Protocol Divalproex Sodium (Depakote Dr(*Bid*)) 750 mg PO BID MARII Glucagon (Glucagen Diagnostic Kit) 0 mg IM STAT PRN; Protocol PRN Reason: Hypoglycemia Protocol Ceftriaxone Sodium 2 gm/ (Sodium Chloride) 100 mls @ 100 mls/hr IVPB DAILY MARII PRN Reason: Protocol Last Admin: 09/09/17 09:18 Dose: 100 mls/hr Naloxone HCl 4 mg/ Dextrose 504 mls @ 50.4 mls/hr IVPB .Q10H MARII PRN Reason: 0.4 MG/HR Stop: 09/10/17 15:01 Last Admin: 09/10/17 02:24 Dose: 50.4 mls/hr Azithromycin 500 mg/ Sodium (Chloride) 250 mls @ 250 mls/hr IVPB DAILY MARII PRN Reason: Protocol Insulin Detemir (Levemir) 10 units SC HS MARII Pravastatin Sodium (Pravachol) 40 mg PO HS MARII - Labs Labs: 09/10/17 04:55 09/10/17 04:55 PT 11.1 Seconds (9.8-13.1) 09/09/17 04:35 INR 1.0 (0.9-1.2) 09/09/17 04:35 APTT 30.1 Seconds (25.6-37.1) 09/09/17 04:35 - Constitutional Appears: No Acute Distress - Head Exam Head Exam: ATRAUMATIC, NORMAL INSPECTION, NORMOCEPHALIC - Eye Exam Eye Exam: EOMI, Normal appearance - ENT Exam ENT Exam: Mucous Membranes Moist - Neck Exam Neck Exam: Normal Inspection - Respiratory Exam Respiratory Exam: Clear to Ausculation Bilateral, NORMAL BREATHING PATTERN - Cardiovascular Exam Cardiovascular Exam: REGULAR RHYTHM - GI/Abdominal Exam GI & Abdominal Exam: Soft, Normal Bowel Sounds. absent: Tenderness - Extremities Exam Extremities Exam: Full ROM, Normal Capillary Refill, Normal Inspection. absent : Pedal Edema - Neurological Exam Neurological Exam: Alert, Awake, CN II-XII Intact, Oriented x3 - Psychiatric Exam Psychiatric exam: Depressed, Flat Affect - Skin Skin Exam: Dry, Intact, Normal Color Assessment and Plan - Assessment and Plan (Free Text) Assessment: 57 y/o F with PMH including IDDM2, HTN, Carotid stenosis s/p endarterectomy was admitted to ICU for opioid overdose and acute renal failure. Plan: Acute kidney injury, improving -Etiology likely secondary to dehydration -BUN/Cr 78/4.1 at admission improved to 38/0.9 with fluid hydration -Renal doppler ordered due to associated atherosclerotic carotid disease, however results pending -Patient produced 4L light colored urine via flowers -Nephrology, Dr Kaiser consult appreciated -Will follow bmp Acute Opioid Overdose -Undetermined amount of prescription opioid ingestion -S/p Narcan bolus followed by Narcan drip with improvement -Patient has associated depression, and psychiatry was consulted Leukocytosis -Etiology undetermined possibly stress related vs UTI vs pneumonia -WBC improved from 14.8 > 6.7. Patient afebrile. -CXR reports right lung atelectasis vs infiltrate -UA reveals moderate leuk esterace -Urine Cx detects gram -ve rods, final ID and sensitivity pending -Blood Cx no growth after 24 hours -Procalcitonin WNL -Continue rocephin 2gm IV daily and azithromycin 500mg IV daily Depression -Patient has depressed mood and recent toxic opiate ingestion. Unclear if suicide attempt -Psychiatric consult by Dr Sidhu appreciated -Patient was guarded during assessment and refused voluntary psych admission -Recommendation made to start cymbalta 20mg daily -Psych also recommends screening for involuntary psychiatric admission -Will order 1:1 observation Seizure d/o -History of seizure on prior hospitalization -On Depakote 750mg bid NIDDM2 -Last HgbA1c: 7.1 in 04/2017 -Will continue home basal levemir 10units SC QHS -Insulin sliding scale, temporarily and resume home medications/mealtime insulin as appropriate -Will hold home januvia 100mg po daily, glipizide xl 5mg po bid, and novolog 40units tid w/meals -ACCUcheck ACHS -Hypoglycemia protocol Hypertension -Blood pressure currently within normal range -Was taking amlodipine 5mg and lisinopril/hct 20/25 at home -Will hold antihypertensives at this time and resume when indicated DVT Prophylaxis -SCDs for now
[2017-09-10] MEDS: Azithromycin 500 MG in Sodium Chloride 0.9% 250 ML IVPB SCH (12:48)
--- NOTE | 2017-09-10 14:49 | CP.PCM.CON ---
History of Present Illness - History of Present Illness History of Present Illness: 57 y/o F with PMH including DM2, HTN, Carotid stenosis s/p endarterectomy presented to ED by EMS due to weakness and lethargy. At time of assessment, patient extremely fatigued and constantly falling asleep so history was obtained via chart and patient. According to family, patient had approximately 6 hours of progressive lethargy when she tried to go to the restroom and called for help. Family called EMS and at time of ED assessment she was found to have pinpoint pupils. She was given 4mg of Narcan and became more alert and responsive. pt on evaluation guarded and evasive when asked if this was a suicide attempt pt responded by that she thinks it is time for her to leave, she reported feeling increasingly depressed since the of her three years ago, however she never seeked help, pt since then has been neglecting her medical care which resulted in severe deterioration of her medical condition pt reported poor sleep denied psychotic or manic symptoms Past Patient History - Infectious Disease Hx of Infectious Diseases: None - Past Medical History & Family History Past Medical History?: Yes - Past Social History Smoking Status: Heavy Smoker > 10 Cigarettes Daily Drugs: Prescription medications (Prescribed prescription opiates for chronic pain) Home Situation {Lives}: With Family - CARDIAC Hx Congestive Heart Failure: Yes Hx Hypercholesterolemia: Yes Hx Hypertension: Yes - PULMONARY Hx Asthma: Yes - NEUROLOGICAL Hx Seizures: No - HEENT Hx HEENT Problems: No - RENAL Hx Chronic Kidney Disease: No - ENDOCRINE/METABOLIC Hx Diabetes Mellitus Type 2: Yes - HEMATOLOGICAL/ONCOLOGICAL Hx Anemia: Yes Hx Human Immunodeficiency Virus (HIV): No - INTEGUMENTARY Hx Dermatological Problems: No - MUSCULOSKELETAL/RHEUMATOLOGICAL Hx Arthritis: Yes - GASTROINTESTINAL Hx Gastrointestinal Disorders: No Hx Gastroesophageal Reflux: Yes - GENITOURINARY/GYNECOLOGICAL Hx Sexually Transmitted Disorders: No - PSYCHIATRIC Hx Anxiety: Yes Hx Depression: Yes - SURGICAL HISTORY Hx Appendectomy: Yes Hx Carotid Endarterectomy: Yes Hx Cholecystectomy: Yes - ANESTHESIA Hx Anesthesia: Yes Hx Anesthesia Reactions: No Hx Malignant Hyperthermia: No Meds Allergies/Adverse Reactions: Allergies Allergy/AdvReac Type Severity Reaction Status Date / Time vancomycin AdvReac ITCHING Verified 09/09/17 04:39 - Medications Medications: Current Medications Clopidogrel Bisulfate (Plavix) 75 mg PO DAILY [facility] Last Admin: 02/22/18 12:47 Dose: 75 mg Dextrose (Dextrose 50% Inj) 0 ml IV STAT PRN; Protocol PRN Reason: Hypoglycemia Protocol Dextrose (Glutose 15) 0 gm PO ONCE PRN; Protocol PRN Reason: Hypoglycemia Protocol Divalproex Sodium (Depakote Dr(*Bid*)) 750 mg PO BID [facility] Last Admin: 09/10/17 12:19 Dose: 750 mg Glucagon (Glucagen Diagnostic Kit) 0 mg IM STAT PRN; Protocol PRN Reason: Hypoglycemia Protocol Ceftriaxone Sodium 2 gm/ (Sodium Chloride) 100 mls @ 100 mls/hr IVPB DAILY [facility] PRN Reason: Protocol Last Admin: 09/10/17 12:21 Dose: 100 mls/hr Naloxone HCl 4 mg/ Dextrose 504 mls @ 50.4 mls/hr IVPB .Q10H [facility] PRN Reason: 0.4 MG/HR Stop: 09/10/17 15:01 Last Admin: 09/10/17 12:20 Dose: Not Given Azithromycin 500 mg/ Sodium (Chloride) 250 mls @ 250 mls/hr IVPB DAILY [facility] PRN Reason: Protocol Last Admin: 09/10/17 12:48 Dose: 250 mls/hr Insulin Detemir (Levemir) 10 units SC HS [facility] Pravastatin Sodium (Pravachol) 40 mg PO HS [facility] Physical Exam - Psychiatric Exam Additional comments: pt on evaluation guarded evasive poor eye contact underproductive speech mood tired affect depressed and tearful thought form coherent wheb asked about suicide reported she thinks it is her time, denied homicidal ideations denied perceptual disturbances, non elicited alert awake oriented to person and place, poor insight poor impulse control Results - Vital Signs Recent Vital Signs: Last Vital Signs Temp 98.2 F 09/10/17 12:00 Pulse 83 09/10/17 12:00 Resp 11 L 09/10/17 12:00 BP 133/88 09/10/17 12:00 Pulse Ox 99 09/10/17 12:00 - Labs Result Diagrams: 09/10/17 04:55 09/10/17 04:55 Labs: Laboratory Results - last 24 hr 09/09/17 09/09/17 09/09/17 12:00 12:00 12:00 WBC RBC Hgb Hct MCV MCH MCHC RDW Plt Count MPV Neut % (Auto) Lymph % (Auto) [place] % (Auto) Eos % (Auto) Baso % (Auto) Neut # (Auto) Lymph # (Auto) [place] # (Auto) Eos # (Auto) Baso # (Auto) Neutrophils % (Manual) Lymphocytes % (Manual) Monocytes % (Manual) Eosinophils % (Manual) Toxic Granulation Platelet Estimate Large Platelets Hypochromasia (manual) Basophilic Stippling Sodium Potassium Chloride Carbon Dioxide Anion Gap BUN Creatinine Est GFR ( Amer) Est GFR (Non-Af Amer) POC Glucose (mg/dL) Random Glucose Calcium Folate 5.1 Procalcitonin 0.31 Urine Eosinophils Ur Random Sodium Ur Random Potassium Urine Chloride HIV 1&2 Antibody Screen Negative 09/09/17 09/09/17 09/09/17 16:10 16:34 18:30 WBC RBC Hgb Hct MCV MCH MCHC RDW Plt Count MPV Neut % (Auto) Lymph % (Auto) [place] % (Auto) Eos % (Auto) Baso % (Auto) Neut # (Auto) Lymph # (Auto) [place] # (Auto) Eos # (Auto) Baso # (Auto) Neutrophils % (Manual) Lymphocytes % (Manual) Monocytes % (Manual) Eosinophils % (Manual) Toxic Granulation Platelet Estimate Large Platelets Hypochromasia (manual) Basophilic Stippling Sodium 136 Potassium 4.7 Chloride 105 Carbon Dioxide 21 L Anion Gap 15 BUN 64 H Creatinine 2.0 H Est GFR ( Amer) 31 Est GFR (Non-Af Amer) 26 POC Glucose (mg/dL) 141 H Random Glucose 122 H Calcium 7.8 L Folate Procalcitonin Urine Eosinophils Negative Ur Random Sodium Ur Random Potassium Urine Chloride HIV 1&2 Antibody Screen 09/09/17 09/09/17 09/09/17 18:30 18:30 21:29 WBC RBC Hgb Hct MCV MCH MCHC RDW Plt Count MPV Neut % (Auto) Lymph % (Auto) [place] % (Auto) Eos % (Auto) Baso % (Auto) Neut # (Auto) Lymph # (Auto) [place] # (Auto) Eos # (Auto) Baso # (Auto) Neutrophils % (Manual) Lymphocytes % (Manual) Monocytes % (Manual) Eosinophils % (Manual) Toxic Granulation Platelet Estimate Large Platelets Hypochromasia (manual) Basophilic Stippling Sodium Potassium Chloride Carbon Dioxide Anion Gap BUN Creatinine Est GFR ( Amer) Est GFR (Non-Af Amer) POC Glucose (mg/dL) 161 H Random Glucose Calcium Folate Procalcitonin Urine Eosinophils Ur Random Sodium 62 Ur Random Potassium 25.5 Urine Chloride 43 HIV 1&2 Antibody Screen 09/10/17 09/10/17 09/10/17 04:55 04:55 06:32 WBC 6.7 D RBC 3.41 L Hgb 11.3 L Hct 33.4 L MCV 98.0 MCH 33.1 H MCHC 33.8 RDW 13.3 Plt Count 123 L D MPV 10.3 Neut % (Auto) 81.0 H Lymph % (Auto) 7.4 L [place] % (Auto) 10.4 H Eos % (Auto) 0.9 Baso % (Auto) 0.3 Neut # (Auto) 5.4 Lymph # (Auto) 0.5 L [place] # (Auto) 0.7 Eos # (Auto) 0.1 Baso # (Auto) 0.0 Neutrophils % (Manual) 85 H Lymphocytes % (Manual) 4 L Monocytes % (Manual) 7 Eosinophils % (Manual) 4 Toxic Granulation Present Platelet Estimate Slightly decreased L Large Platelets Present Hypochromasia (manual) Slight Basophilic Stippling Slight Sodium 136 Potassium 4.5 Chloride 108 H Carbon Dioxide 23 Anion Gap 10 BUN 38 H Creatinine 0.9 Est GFR ( Amer) > 60 Est GFR (Non-Af Amer) > 60 POC Glucose (mg/dL) 226 H Random Glucose 248 H Calcium 8.3 L Folate Procalcitonin Urine Eosinophils Ur Random Sodium Ur Random Potassium Urine Chloride HIV 1&2 Antibody Screen 09/10/17 13:11 WBC RBC Hgb Hct MCV MCH MCHC RDW Plt Count MPV Neut % (Auto) Lymph % (Auto) [place] % (Auto) Eos % (Auto) Baso % (Auto) Neut # (Auto) Lymph # (Auto) [place] # (Auto) Eos # (Auto) Baso # (Auto) Neutrophils % (Manual) Lymphocytes % (Manual) Monocytes % (Manual) Eosinophils % (Manual) Toxic Granulation Platelet Estimate Large Platelets Hypochromasia (manual) Basophilic Stippling Sodium Potassium Chloride Carbon Dioxide Anion Gap BUN Creatinine Est GFR ( Amer) Est GFR (Non-Af Amer) POC Glucose (mg/dL) 261 H Random Glucose Calcium Folate Procalcitonin Urine Eosinophils Ur Random Sodium Ur Random Potassium Urine Chloride HIV 1&2 Antibody Screen Assessment & Plan - Assessment and Plan (Free Text) Assessment: 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
[2017-09-10] MEDS: Pravastatin Sodium 40 MG TAB PO SCH (21:56)
[2017-09-10] MEDS ORDERED: Insulin Detemir 100 Units/ml Inj SC SCH (22:00)
[2017-09-10] MEDS ORDERED: Patient's Own Med (Insulin Detemir [Levemir] 10 UNIT) SC SCH (22:00)
[2017-09-10] MEDS: Insulin Regular 100 units/ml SC SCH (22:02)
[2017-09-11] MEDS: Insulin Regular 100 units/ml SC SCH ×4 (06:35→22:56)
[2017-09-11 06:37] LABS: MEAN CELL VOLUME 97.3 fl (81.0-99.0); MEAN CORPUSCULAR HEMOGLOBIN 33.6 pg (27.0-31.0); MEAN CORPUSCULAR HGB CONC 34.5 g/dL (33.0-37.0); RBC 3.29 Mil/uL (3.80-5.20); RED CELL DISTRIBUTION WIDTH 12.8 % (11.5-14.5); WHITE BLOOD COUNT 3.9 K/uL (4.8-10.8)
[2017-09-11 06:46] LABS: BLOOD UREA NITROGEN 25 mg/dl (7-17); CALCIUM 8.7 mg/dL (8.4-10.2); GFR AFRICAN-AMERICAN > 60; GFR NON-AFRICAN AMERICAN > 60
[2017-09-11] MEDS: Divalproex 250 mg DR(BID formulation) PO SCH ×2 (08:50→17:27)
[2017-09-11] MEDS: Azithromycin 500 MG in Sodium Chloride 0.9% 250 ML IVPB SCH (08:52)
--- NOTE | 2017-09-11 10:10 | CP.PCM.PN ---
Subjective - Date & Time of Evaluation Date of Evaluation: 09/11/17 Time of Evaluation: 07:15 - Subjective Subjective: Patient seen and examined this morning, NAD. Flat affect, patient is guarded and denies depression. Patient is AAO3, tolerating diet, voiding, had BM. Objective - Vital Signs/Intake and Output Vital Signs (last 24 hours): Temp Pulse Resp BP Pulse Ox 97.8 F 62 18 146/71 95 09/11/17 00:17 09/11/17 00:17 09/11/17 00:17 09/11/17 00:17 09/11/17 00:17 - Medications Medications: Current Medications Clopidogrel Bisulfate (Plavix) 75 mg PO DAILY [facility] Last Admin: 09/11/17 08:50 Dose: 75 mg Dextrose (Dextrose 50% Inj) 0 ml IV STAT PRN; Protocol PRN Reason: Hypoglycemia Protocol Dextrose (Glutose 15) 0 gm PO ONCE PRN; Protocol PRN Reason: Hypoglycemia Protocol Divalproex Sodium (Depakote Dr(*Bid*)) 750 mg PO BID [facility] Last Admin: 09/11/17 08:50 Dose: 750 mg Enoxaparin Sodium (Lovenox) 40 mg SC DAILY [facility] PRN Reason: Protocol Glucagon (Glucagen Diagnostic Kit) 0 mg IM STAT PRN; Protocol PRN Reason: Hypoglycemia Protocol Ceftriaxone Sodium 2 gm/ (Sodium Chloride) 100 mls @ 100 mls/hr IVPB DAILY [facility] PRN Reason: Protocol Last Admin: 09/10/17 12:21 Dose: 100 mls/hr Azithromycin 500 mg/ Sodium (Chloride) 250 mls @ 250 mls/hr IVPB DAILY [facility] PRN Reason: Protocol Last Admin: 09/11/17 08:52 Dose: 250 mls/hr Ibuprofen (Motrin Tab) 600 mg PO Q6 PRN PRN Reason: Headache Last Admin: 09/10/17 18:53 Dose: 600 mg Insulin Detemir (Levemir) 10 units SC HS [facility] Last Admin: 09/10/17 21:57 Dose: 10 units Insulin Human Regular (Humulin R) 0 units SC ACHS [facility] PRN Reason: Protocol Last Admin: 09/11/17 06:35 Dose: 4 units Lisinopril (Zestril) 20 mg PO DAILY [facility] Pravastatin Sodium (Pravachol) 40 mg PO HS [facility] Last Admin: 09/10/17 21:56 Dose: 40 mg - Labs Labs: 09/11/17 05:00 09/11/17 05:00 PT 11.1 Seconds (9.8-13.1) 09/09/17 04:35 INR 1.0 (0.9-1.2) 09/09/17 04:35 APTT 30.1 Seconds (25.6-37.1) 09/09/17 04:35 - Constitutional Appears: No Acute Distress - Head Exam Head Exam: ATRAUMATIC, NORMAL INSPECTION, NORMOCEPHALIC - Eye Exam Eye Exam: Normal appearance - ENT Exam ENT Exam: Mucous Membranes Moist - Neck Exam Neck Exam: Normal Inspection - Respiratory Exam Respiratory Exam: Clear to Ausculation Bilateral - Cardiovascular Exam Cardiovascular Exam: REGULAR RHYTHM - GI/Abdominal Exam GI & Abdominal Exam: Soft, Normal Bowel Sounds - Extremities Exam Extremities Exam: Normal Capillary Refill - Back Exam Back Exam: NORMAL INSPECTION - Neurological Exam Neurological Exam: Alert, Awake, Oriented x3 - Psychiatric Exam Psychiatric exam: Depressed, Flat Affect - Skin Skin Exam: Normal Color Assessment and Plan - Assessment and Plan (Free Text) Assessment: 57 y/o F with PMH including IDDM2, HTN, Carotid stenosis s/p endarterectomy was admitted to ICU for opioid overdose and acute renal failure Acute kidney injury, improving -Etiology likely secondary to dehydration -BUN/Cr 78/4.1 at admission improved to 25/0.7 with fluid hydration -Renal doppler ordered due to associated atherosclerotic carotid disease: b/l renal artery stenosis -Patient is voiding freely -Nephrology, Dr Kaiser consult appreciated Acute Opioid Overdose -Undetermined amount of prescription opioid ingestion -S/p Narcan bolus followed by Narcan drip with improvement -Patient has associated depression, and psychiatry was consulted Leukocytosis -Etiology undetermined possibly stress related vs UTI vs pneumonia -WBC improved to 3.9 today. Patient afebrile. -CXR reports right lung atelectasis vs infiltrate -UA reveals moderate leuk esterace -Urine Cx detects gram -ve rods, final ID and sensitivity pending -Blood Cx no growth after 48 hours -Procalcitonin WNL -Continue rocephin 2gm IV daily and azithromycin 500mg IV daily for 5 days (day# 3) Depression -Patient has depressed mood and recent toxic opiate ingestion. Unclear if suicide attempt -Psychiatric consult by Dr Sidhu appreciated -Hold Psych screening for involuntary psychiatric admission as per Dr. Sidhu, Patient may consider psych inpatient -Cymbalta 20mg daily -Continue 1:1 observation Seizure d/o -History of seizure on prior hospitalization -On Depakote 750mg bid NIDDM2 -Last HgbA1c: 7.1 in 04/2017 -basal levemir 10units SC QHS increased to 15U today -Insulin sliding scale, temporarily and resume home medications/mealtime insulin as appropriate -Will hold home glipizide xl 5mg po bid, and novolog 40units tid w/meals -will resume januvia 100mg po daily from 09/02/17 -ACCUcheck ACHS -Hypoglycemia protocol Hypertension - BP 140 systolic - Renal U/S: B/l renal artery stenosis - Will start Norvas 5mg PO daily, No Lisinopril, hold HCT25 DVT Prophylaxis -SCDs for now
[2017-09-11] MEDS: Enoxaparin 40 mg Syringe SC SCH (10:45)
--- NOTE | 2017-09-11 11:25 | CP.PCM.PN ---
Subjective - Date & Time of Evaluation Date of Evaluation: 09/11/17 Time of Evaluation: 11:20 - Subjective Subjective: Patient awake and conscious in bed No acute distress no nausea no vomiting Patient has good appetite Objective - Vital Signs/Intake and Output Vital Signs (last 24 hours): Temp Pulse Resp BP Pulse Ox 97.8 F 62 18 146/71 95 09/11/17 00:17 09/11/17 10:46 09/11/17 00:17 09/11/17 10:46 09/11/17 00:17 - Medications Medications: Current Medications Clopidogrel Bisulfate (Plavix) 75 mg PO DAILY [facility] Last Admin: 09/11/17 08:50 Dose: 75 mg Dextrose (Dextrose 50% Inj) 0 ml IV STAT PRN; Protocol PRN Reason: Hypoglycemia Protocol Dextrose (Glutose 15) 0 gm PO ONCE PRN; Protocol PRN Reason: Hypoglycemia Protocol Divalproex Sodium (Depakote Dr(*Bid*)) 750 mg PO BID [facility] Last Admin: 09/11/17 08:50 Dose: 750 mg Enoxaparin Sodium (Lovenox) 40 mg SC DAILY [facility] PRN Reason: Protocol Last Admin: 09/11/17 10:45 Dose: 40 mg Glucagon (Glucagen Diagnostic Kit) 0 mg IM STAT PRN; Protocol PRN Reason: Hypoglycemia Protocol Ceftriaxone Sodium 2 gm/ (Sodium Chloride) 100 mls @ 100 mls/hr IVPB DAILY [facility] PRN Reason: Protocol Last Admin: 09/10/17 12:21 Dose: 100 mls/hr Azithromycin 500 mg/ Sodium (Chloride) 250 mls @ 250 mls/hr IVPB DAILY [facility] PRN Reason: Protocol Last Admin: 09/11/17 08:52 Dose: 250 mls/hr Ibuprofen (Motrin Tab) 600 mg PO Q6 PRN PRN Reason: Headache Last Admin: 09/10/17 18:53 Dose: 600 mg Insulin Detemir (Levemir) 10 units SC HS [facility] Last Admin: 09/10/17 21:57 Dose: 10 units Insulin Human Regular (Humulin R) 0 units SC ACHS [facility] PRN Reason: Protocol Last Admin: 09/11/17 06:35 Dose: 4 units Lisinopril (Zestril) 20 mg PO DAILY [facility] Last Admin: 09/11/17 10:46 Dose: 20 mg Pravastatin Sodium (Pravachol) 40 mg PO HS [facility] Last Admin: 09/10/17 21:56 Dose: 40 mg - Labs Labs: 09/11/17 05:00 09/11/17 05:00 PT 11.1 Seconds (9.8-13.1) 09/09/17 04:35 INR 1.0 (0.9-1.2) 09/09/17 04:35 APTT 30.1 Seconds (25.6-37.1) 09/09/17 04:35 - Constitutional Appears: No Acute Distress - ENT Exam ENT Exam: Mucous Membranes Moist - Neck Exam Neck Exam: absent: Lymphadenopathy - Respiratory Exam Respiratory Exam: NORMAL BREATHING PATTERN. absent: Chest Wall Tenderness - Cardiovascular Exam Cardiovascular Exam: REGULAR RHYTHM. absent: Gallop, JVD - GI/Abdominal Exam GI & Abdominal Exam: Soft, Normal Bowel Sounds - Extremities Exam Extremities Exam: absent: Calf Tenderness - Back Exam Back Exam: absent: CVA tenderness (L), CVA tenderness (R) - Neurological Exam Neurological Exam: Alert - Psychiatric Exam Psychiatric exam: Normal Affect - Skin Skin Exam: absent: Cyanosis Assessment and Plan (1) TED (acute kidney injury) Assessment & Plan: #1 acute kidney injury Patient recover kidney function back to normal from overdosing and dehydration. #2 overdosing patient seen by psychiatry. #3 diabetes mellitus on medication #4 hypertension #5 patient has bilateral renal artery stenosis as noted on the ultrasound. Patient told me she is scheduled to have surgery over the right carotid artery. Therefore regarding the bilateral renal artery stenosis patient needs arteriogram and to be discussed with the interventional radiologist for possible stenting? This to be done after fixing the right carotid artery. Also recommended not to give SHLOMO inhibitor or ARB was bilateral renal artery stenosis therefore suggest to discontinue lisinopril and switch to Norvasc. Status: Acute
[2017-09-11] MEDS: cefTRIAXone 2 GM in Sodium Chloride 0.9% 100 ML IVPB SCH (11:43)
--- NOTE | 2017-09-11 15:46 | CP.PCM.CON ---
History of Present Illness - History of Present Illness History of Present Illness: follow up consult, pt revaluated today and discussed treatment plan with her son upon pt consent pt continues to present with depressed,mood and affect, guarded , evasive , agreed to take cymbalta, discussed with pt the need for admission to psychiatry for further mood stabilization, pt asked to rediscuss admission post her surgery Past Patient History - Infectious Disease Hx of Infectious Diseases: None - Past Medical History & Family History Past Medical History?: Yes - Past Social History Smoking Status: Heavy Smoker > 10 Cigarettes Daily Drugs: Prescription medications (Prescribed prescription opiates for chronic pain) Home Situation {Lives}: With Family - CARDIAC Hx Congestive Heart Failure: Yes Hx Hypercholesterolemia: Yes Hx Hypertension: Yes - PULMONARY Hx Asthma: Yes - NEUROLOGICAL Hx Seizures: No - HEENT Hx HEENT Problems: No - RENAL Hx Chronic Kidney Disease: No - ENDOCRINE/METABOLIC Hx Diabetes Mellitus Type 2: Yes - HEMATOLOGICAL/ONCOLOGICAL Hx Anemia: Yes Hx Human Immunodeficiency Virus (HIV): No - INTEGUMENTARY Hx Dermatological Problems: No - MUSCULOSKELETAL/RHEUMATOLOGICAL Hx Arthritis: Yes - GASTROINTESTINAL Hx Gastrointestinal Disorders: No Hx Gastroesophageal Reflux: Yes - GENITOURINARY/GYNECOLOGICAL Hx Sexually Transmitted Disorders: No - PSYCHIATRIC Hx Anxiety: Yes Hx Depression: Yes - SURGICAL HISTORY Hx Appendectomy: Yes Hx Carotid Endarterectomy: Yes Hx Cholecystectomy: Yes - ANESTHESIA Hx Anesthesia: Yes Hx Anesthesia Reactions: No Hx Malignant Hyperthermia: No Meds Allergies/Adverse Reactions: Allergies Allergy/AdvReac Type Severity Reaction Status Date / Time vancomycin AdvReac ITCHING Verified 09/09/17 04:39 - Medications Medications: Current Medications Amlodipine Besylate (Norvasc) 5 mg PO DAILY [facility] Clopidogrel Bisulfate (Plavix) 75 mg PO DAILY [facility] Last Admin: 09/11/17 08:50 Dose: 75 mg Dextrose (Dextrose 50% Inj) 0 ml IV STAT PRN; Protocol PRN Reason: Hypoglycemia Protocol Dextrose (Glutose 15) 0 gm PO ONCE PRN; Protocol PRN Reason: Hypoglycemia Protocol Divalproex Sodium (Depakote Dr(*Bid*)) 750 mg PO BID [facility] Last Admin: 09/11/17 08:50 Dose: 750 mg Duloxetine HCl (Cymbalta) 20 mg PO DAILY [facility] Enoxaparin Sodium (Lovenox) 40 mg SC DAILY [facility] PRN Reason: Protocol Last Admin: 09/11/17 10:45 Dose: 40 mg Glucagon (Glucagen Diagnostic Kit) 0 mg IM STAT PRN; Protocol PRN Reason: Hypoglycemia Protocol Ceftriaxone Sodium 2 gm/ (Sodium Chloride) 100 mls @ 100 mls/hr IVPB DAILY [facility] PRN Reason: Protocol Last Admin: 09/11/17 11:43 Dose: 100 mls/hr Azithromycin 500 mg/ Sodium (Chloride) 250 mls @ 250 mls/hr IVPB DAILY [facility] PRN Reason: Protocol Last Admin: 09/11/17 08:52 Dose: 250 mls/hr Ibuprofen (Motrin Tab) 600 mg PO Q6 PRN PRN Reason: Headache Last Admin: 09/10/17 18:53 Dose: 600 mg Insulin Detemir (Levemir) 15 units SC HS [facility] Insulin Human Regular (Humulin R) 0 units SC ACHS [facility] PRN Reason: Protocol Pravastatin Sodium (Pravachol) 40 mg PO HS [facility] Last Admin: 09/10/17 21:56 Dose: 40 mg Sitagliptin Phosphate (Januvia) 100 mg PO DAILY [facility] Physical Exam - Psychiatric Exam Additional comments: t on evaluation guarded evasive poor eye contact underproductive speech mood tired affect depressed and tearful thought form coherent wheb asked about suicide reported she thinks it is her time, denied homicidal ideations denied perceptual disturbances, non elicited alert awake oriented to person and place, poor insight poor impulse control Results - Vital Signs Recent Vital Signs: Last Vital Signs Temp 97.6 F 09/11/17 11:33 Pulse 78 09/11/17 11:33 Resp 18 09/11/17 11:33 BP 110/72 09/11/17 11:33 Pulse Ox 97 09/11/17 11:33 - Labs Result Diagrams: 09/11/17 05:00 09/11/17 05:00 Labs: Laboratory Results - last 24 hr 09/10/17 09/10/17 09/11/17 16:50 21:38 05:00 WBC 3.9 L RBC 3.29 L Hgb 11.0 L Hct 32.0 L MCV 97.3 MCH 33.6 H MCHC 34.5 RDW 12.8 Plt Count 125 L Sodium Potassium Chloride Carbon Dioxide Anion Gap BUN Creatinine Est GFR ( Amer) Est GFR (Non-Af Amer) POC Glucose (mg/dL) 209 H 257 H Random Glucose Calcium 09/11/17 09/11/17 09/11/17 05:00 05:16 10:54 WBC RBC Hgb Hct MCV MCH MCHC RDW Plt Count Sodium 139 Potassium 4.5 Chloride 104 Carbon Dioxide 27 Anion Gap 13 BUN 25 H Creatinine 0.7 Est GFR ( Amer) > 60 Est GFR (Non-Af Amer) > 60 POC Glucose (mg/dL) 287 H 346 H Random Glucose 311 H Calcium 8.7 Assessment & Plan - Assessment and Plan (Free Text) Plan: major depression continue with [facility] pt to be revaluated on medical clearence for voluntary admission to psychiatry
[2017-09-11] MEDS: Insulin Detemir 100 Units/ml Inj SC SCH ×2 (17:28→22:55)
[2017-09-11] MEDS: Pravastatin Sodium 40 MG TAB PO SCH (22:56)
[2017-09-12] MEDS: Enoxaparin 40 mg Syringe SC SCH (08:53)
[2017-09-12] MEDS: Divalproex 250 mg DR(BID formulation) PO SCH ×2 (08:53→16:17)
[2017-09-12] MEDS: Azithromycin 500 MG in Sodium Chloride 0.9% 250 ML IVPB SCH (08:54)
[2017-09-12] MEDS: cefTRIAXone 2 GM in Sodium Chloride 0.9% 100 ML IVPB SCH (08:55)
[2017-09-12] MEDS: Insulin Regular 100 units/ml SC SCH ×4 (08:55→22:13)
--- NOTE | 2017-09-12 10:37 | CP.PCM.PN ---
Subjective - Date & Time of Evaluation Date of Evaluation: 09/12/17 Time of Evaluation: 10:00 - Subjective Subjective: Patient seen and examined at bedside with 1:1 present. Patient appears to be sleeping comfortably but is easily awoken. She denies headaches, chest pain, abdominal pain or SOB overnight. She reports getting out of bed to chair briefly yesterday and tolerated breakfast this morning. When topic of depressed mood was brought up, patient became withdrawn and stated she wanted to "be left alone." Objective - Vital Signs/Intake and Output Vital Signs (last 24 hours): Temp Pulse Resp BP Pulse Ox 97.6 F 64 19 151/64 H 98 09/12/17 07:49 09/12/17 08:53 09/12/17 07:49 09/12/17 08:53 09/12/17 07:49 - Medications Medications: Current Medications Amlodipine Besylate (Norvasc) 5 mg PO DAILY [facility] Last Admin: 09/12/17 08:53 Dose: 5 mg Clopidogrel Bisulfate (Plavix) 75 mg PO DAILY [facility] Last Admin: 09/12/17 08:54 Dose: 75 mg Dextrose (Dextrose 50% Inj) 0 ml IV STAT PRN; Protocol PRN Reason: Hypoglycemia Protocol Dextrose (Glutose 15) 0 gm PO ONCE PRN; Protocol PRN Reason: Hypoglycemia Protocol Divalproex Sodium (Depakote Dr(*Bid*)) 750 mg PO BID [facility] Last Admin: 09/12/17 08:53 Dose: 750 mg Duloxetine HCl (Cymbalta) 20 mg PO DAILY [facility] Last Admin: 09/12/17 08:54 Dose: 20 mg Enoxaparin Sodium (Lovenox) 40 mg SC DAILY [facility] PRN Reason: Protocol Last Admin: 09/12/17 08:53 Dose: 40 mg Glucagon (Glucagen Diagnostic Kit) 0 mg IM STAT PRN; Protocol PRN Reason: Hypoglycemia Protocol Ceftriaxone Sodium 2 gm/ (Sodium Chloride) 100 mls @ 100 mls/hr IVPB DAILY [facility] PRN Reason: Protocol Last Admin: 09/12/17 08:55 Dose: 100 mls/hr Azithromycin 500 mg/ Sodium (Chloride) 250 mls @ 250 mls/hr IVPB DAILY [facility] PRN Reason: Protocol Last Admin: 09/12/17 08:54 Dose: 250 mls/hr Ibuprofen (Motrin Tab) 600 mg PO Q6 PRN PRN Reason: Headache Last Admin: 09/10/17 18:53 Dose: 600 mg Insulin Detemir (Levemir) 15 units SC HS [facility] Last Admin: 09/11/17 22:55 Dose: 15 units Insulin Human Regular (Humulin R) 0 units SC ACHS [facility] PRN Reason: Protocol Last Admin: 09/12/17 08:55 Dose: 6 units Pravastatin Sodium (Pravachol) 40 mg PO HS [facility] Last Admin: 09/11/17 22:56 Dose: 40 mg Sitagliptin Phosphate (Januvia) 100 mg PO DAILY [facility] Last Admin: 09/12/17 08:54 Dose: 100 mg - Labs Labs: 09/11/17 05:00 09/11/17 05:00 PT 11.1 Seconds (9.8-13.1) 09/09/17 04:35 INR 1.0 (0.9-1.2) 09/09/17 04:35 APTT 30.1 Seconds (25.6-37.1) 09/09/17 04:35 - Constitutional Appears: Non-toxic, No Acute Distress - Head Exam Head Exam: ATRAUMATIC, NORMAL INSPECTION, NORMOCEPHALIC - Eye Exam Eye Exam: EOMI, PERRL - ENT Exam ENT Exam: Mucous Membranes Moist - Respiratory Exam Respiratory Exam: Clear to Ausculation Bilateral, NORMAL BREATHING PATTERN. absent: Rales, Rhonchi, Wheezes - Cardiovascular Exam Cardiovascular Exam: REGULAR RHYTHM, RRR, +S1, +S2 - GI/Abdominal Exam GI & Abdominal Exam: Soft, Normal Bowel Sounds. 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 Left foot warm, capillary refill <2 seconds. No edema. - Neurological Exam Neurological Exam: Alert, Awake, Oriented x3 - Psychiatric Exam Psychiatric exam: Depressed, Flat Affect - Skin Skin Exam: Dry, Warm Assessment and Plan - Assessment and Plan (Free Text) Assessment: 57 y/o F with PMH including IDDM2, HTN, Carotid stenosis s/p endarterectomy, admitted for opioid overdose and acute renal failure. Due to depressed mood and suspicion for intentional toxic opiate ingestion, psychiatry was consulted and patient has remained on 1:1 observation. Plan: Acute kidney injury, improving -Etiology likely secondary to dehydration -BUN/Cr 78/4.1 at admission improved to 25/0.7 with fluid hydration -Renal doppler ordered due to associated atherosclerotic carotid disease: b/l renal artery stenosis -Patient is voiding freely -Nephrology, Dr Kaiser consult appreciated Acute Opioid Overdose -Undetermined amount of prescription opioid ingestion -S/p Narcan bolus followed by Narcan drip with improvement -Patient has associated depression, and psychiatry was consulted Leukocytosis, improving -Etiology undetermined possibly stress related vs UTI vs pneumonia -Patient afebrile. -CXR reports right lung atelectasis vs infiltrate -UA reveals moderate leuk esterace -Urine Cx detects gram -ve rods, final ID and sensitivity pending -Blood Cx no growth after 48 hours -Procalcitonin WNL -Continue rocephin 2gm IV daily and azithromycin 500mg IV daily for 5 days (day# 4) Depression -Patient has depressed mood and recent toxic opiate ingestion. Unclear if suicide attempt -Psychiatric consult by Dr Sidhu appreciated -Hold Psych screening for involuntary psychiatric admission as per Dr. Sidhu, Patient may consider psych inpatient -Cymbalta 20mg daily -Continue 1:1 observation NIDDM2, with hyperglycemia -Last HgbA1c: 7.1 in 04/2017 -Continue januvia 100mg po daily which was started earlier today -Basal levemir 15 units SC QHS increased to 20U for tonight -High-dose Insulin sliding scale, temporarily and resume home medications/ mealtime insulin as appropriate -Will hold home glipizide xl 5mg po bid, and mealtime novolog -ACCUcheck ACHS -Hypoglycemia protocol Hypertension -Patient had been taking home amlodipine 5mg daily, Lisinopril/HCT 20/25 daily -Renal U/S revealed B/l renal artery stenosis, so not a good candidate for SHLOMO or ARB -Will continue with amlodipine 5mg PO daily and consider addition of HCT 25mg for inadequate control Seizure d/o -History of seizure on prior hospitalization -On Depakote 750mg bid DVT Prophylaxis -SCDs for now
[2017-09-12] MEDS ORDERED: Insulin Detemir 100 Units/ml Inj SC SCH (22:00)
[2017-09-12] MEDS: Pravastatin Sodium 40 MG TAB PO SCH (22:13)
[2017-09-13] MEDS: Insulin Regular 100 units/ml SC SCH ×4 (07:30→22:00)
[2017-09-13] MEDS: Divalproex 250 mg DR(BID formulation) PO SCH ×2 (09:13→17:08)
[2017-09-13] MEDS: Enoxaparin 40 mg Syringe SC SCH (09:16)
[2017-09-13] MEDS: cefTRIAXone 2 GM in Sodium Chloride 0.9% 100 ML IVPB SCH (09:17)
--- NOTE | 2017-09-13 09:51 | CP.PCM.PN ---
Subjective - Date & Time of Evaluation Date of Evaluation: 09/13/17 Time of Evaluation: 09:30 - Subjective Subjective: Patient seen and examined at bedside with 1:1 present. She appears in better spirits today, is more talkative and states her mood is improved however remains guarded about discussion about depression. She tolerated PO this morning and denies fevers, chills, headache, abdominal pain, nausea, vomiting or SOB. She has not been getting out of bed to chair. Objective - Vital Signs/Intake and Output Vital Signs (last 24 hours): Temp Pulse Resp BP Pulse Ox 98.0 F 65 18 166/68 H 97 09/12/17 23:38 09/13/17 09:16 09/12/17 23:38 09/13/17 09:16 09/12/17 23:38 - Medications Medications: Current Medications Amlodipine Besylate (Norvasc) 10 mg PO DAILY [facility] Last Admin: 09/13/17 09:16 Dose: 10 mg Clopidogrel Bisulfate (Plavix) 75 mg PO DAILY [facility] Last Admin: 09/13/17 09:17 Dose: 75 mg Dextrose (Dextrose 50% Inj) 0 ml IV STAT PRN; Protocol PRN Reason: Hypoglycemia Protocol Dextrose (Glutose 15) 0 gm PO ONCE PRN; Protocol PRN Reason: Hypoglycemia Protocol Divalproex Sodium (Depakote Dr(*Bid*)) 750 mg PO BID [facility] Last Admin: 09/13/17 09:13 Dose: 750 mg Duloxetine HCl (Cymbalta) 20 mg PO DAILY [facility] Last Admin: 09/13/17 09:14 Dose: 20 mg Enoxaparin Sodium (Lovenox) 40 mg SC DAILY [facility] PRN Reason: Protocol Last Admin: 09/13/17 09:16 Dose: 40 mg Glucagon (Glucagen Diagnostic Kit) 0 mg IM STAT PRN; Protocol PRN Reason: Hypoglycemia Protocol Ceftriaxone Sodium 2 gm/ (Sodium Chloride) 100 mls @ 100 mls/hr IVPB DAILY [facility] PRN Reason: Protocol Last Admin: 09/13/17 09:17 Dose: 100 mls/hr Azithromycin 500 mg/ Sodium (Chloride) 250 mls @ 250 mls/hr IVPB DAILY [facility] PRN Reason: Protocol Last Admin: 09/12/17 08:54 Dose: 250 mls/hr Ibuprofen (Motrin Tab) 600 mg PO Q6 PRN PRN Reason: Headache Last Admin: 09/10/17 18:53 Dose: 600 mg Insulin Detemir (Levemir) 20 units SC HS [facility] Last Admin: 09/12/17 22:14 Dose: 20 units Insulin Human Regular (Humulin R) 0 units SC ACHS [facility] PRN Reason: Protocol Last Admin: 09/13/17 07:30 Dose: 2 units Pravastatin Sodium (Pravachol) 40 mg PO HS [facility] Last Admin: 09/12/17 22:13 Dose: 40 mg Sitagliptin Phosphate (Januvia) 100 mg PO DAILY [facility] Last Admin: 09/13/17 09:15 Dose: 100 mg - Labs Labs: 09/11/17 05:00 09/11/17 05:00 PT 11.1 Seconds (9.8-13.1) 09/09/17 04:35 INR 1.0 (0.9-1.2) 09/09/17 04:35 APTT 30.1 Seconds (25.6-37.1) 09/09/17 04:35 - Constitutional Appears: Non-toxic, No Acute Distress - Head Exam Head Exam: ATRAUMATIC, NORMAL INSPECTION, NORMOCEPHALIC - Eye Exam Eye Exam: EOMI, PERRL - ENT Exam ENT Exam: Mucous Membranes Moist - Respiratory Exam Respiratory Exam: Clear to Ausculation Bilateral, NORMAL BREATHING PATTERN. absent: Rales, Rhonchi, Wheezes, Respiratory Distress - Cardiovascular Exam Cardiovascular Exam: REGULAR RHYTHM, RRR, +S1, +S2 - GI/Abdominal Exam GI & Abdominal Exam: Soft, Normal Bowel Sounds. 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 Left foot warm, capillary refill <2 seconds. No edema. - Neurological Exam Neurological Exam: Alert, Awake, Oriented x3 - Psychiatric Exam Psychiatric exam: Normal Affect - Skin Skin Exam: Dry, Warm Assessment and Plan - Assessment and Plan (Free Text) Assessment: 57 y/o F with PMH including IDDM2, HTN, Carotid stenosis s/p endarterectomy, admitted for opioid overdose and acute renal failure. Due to depressed mood and suspicion for intentional toxic opiate ingestion, psychiatry was consulted and patient has remained on 1:1 observation. Plan: Acute kidney injury, improving -Etiology likely secondary to dehydration -BUN/Cr 78/4.1 at admission improved to 25/0.7 with fluid hydration -Renal doppler ordered due to associated atherosclerotic carotid disease: b/l renal artery stenosis -Patient is voiding freely -Nephrology, Dr Kaisre consult appreciated Acute Opioid Overdose -Undetermined amount of prescription opioid ingestion -S/p Narcan bolus followed by Narcan drip with improvement -Patient has associated depression, and psychiatry was consulted. -Undetermined motivation for toxic opioid ingestion Leukocytosis, improving -Etiology undetermined possibly stress related vs UTI vs pneumonia -Patient afebrile. -CXR reports right lung atelectasis vs infiltrate -UA reveals moderate leuk esterace -Urine Cx detects gram -ve rods (ESBL negative Klebsiella) -Blood Cx no growth after 48 hours -Procalcitonin WNL -To complete 5 day course of rocephin 2gm IV daily and azithromycin 500mg IV daily today -Will repeat urinalysis/urine culture Depression -Patient has depressed mood and recent toxic opiate ingestion. Unclear if suicide attempt -Psychiatric consult by Dr Sidhu appreciated -Hold Psych screening for involuntary psychiatric admission as per Dr. Sidhu, Patient may consider psych inpatient -Mood has been improving during admission. Will discuss case further with psychiatry to determine discharge planning. -Cymbalta 20mg daily -Continue 1:1 observation NIDDM2, with hyperglycemia -Last HgbA1c: 7.1 in 04/2017 -Continue januvia 100mg po daily which was started earlier today -Basal levemir 20units SC QHS -High-dose Insulin sliding scale, temporarily and resume home medications/ mealtime insulin as appropriate -Will hold home glipizide xl 5mg po bid, and mealtime novolog -ACCUcheck ACHS -Hypoglycemia protocol Hypertension -Patient had been taking home amlodipine 5mg daily, Lisinopril/HCT 20/25 daily -Renal U/S revealed B/l renal artery stenosis, so not a good candidate for SHLOMO or ARB -Due to persistent SBP in the 150s range will increase amlodipine 5mg PO daily to 10mg daily and consider addition of HCT 25mg for inadequate control Seizure d/o -History of seizure on prior hospitalization -On Depakote 750mg bid DVT Prophylaxis -SCDs for now
[2017-09-13] MEDS: Azithromycin 500 MG in Sodium Chloride 0.9% 250 ML IVPB SCH (10:18)
--- NOTE | 2017-09-13 13:07 | CP.PCM.CON ---
History of Present Illness - History of Present Illness History of Present Illness: Psychiatry follow-up note S: Patient denied that she attempted suicide prior to admission. She reports that she took two pain medication pills (she believes they were morphine) in attempt to get rid of pain. She reports that sometimes she feels depressed, but denies currently feeling depressed. She reports that she want to continue living for her grandchildren. She does not want acute inpatient psychiatric admission at this time and states "if I really wanted to kill myself, I could have." She denies AH/VH/paranoia/delusions. MSE: A + O x 3, calm, cooperative, no acute distress, mood "okay", affect- neutral, NO AH/VH; denies acute SI/HI; fair I/J. Impression: 57 yo female presents w/ opioid overdose, initially was very guarded about what happened and is now denying it was a suicide attempt. She is not agreeable to inpatient psychiatric admission. -Recommend to screen for involuntary psychiatric admission; if patient is not accepted for involuntary admission, patient can be discharged with outpatient follow-up -Continue Cymbalta 20 mg PO Daily Past Patient History - Infectious Disease Hx of Infectious Diseases: None - Past Medical History & Family History Past Medical History?: Yes - Past Social History Smoking Status: Heavy Smoker > 10 Cigarettes Daily Drugs: Prescription medications (Prescribed prescription opiates for chronic pain) Home Situation {Lives}: With Family - CARDIAC Hx Congestive Heart Failure: Yes Hx Hypercholesterolemia: Yes Hx Hypertension: Yes - PULMONARY Hx Asthma: Yes - NEUROLOGICAL Hx Seizures: No - HEENT Hx HEENT Problems: No - RENAL Hx Chronic Kidney Disease: No - ENDOCRINE/METABOLIC Hx Diabetes Mellitus Type 2: Yes - HEMATOLOGICAL/ONCOLOGICAL Hx Anemia: Yes Hx Human Immunodeficiency Virus (HIV): No - INTEGUMENTARY Hx Dermatological Problems: No - MUSCULOSKELETAL/RHEUMATOLOGICAL Hx Arthritis: Yes - GASTROINTESTINAL Hx Gastrointestinal Disorders: No Hx Gastroesophageal Reflux: Yes - GENITOURINARY/GYNECOLOGICAL Hx Sexually Transmitted Disorders: No - PSYCHIATRIC Hx Anxiety: Yes Hx Depression: Yes - SURGICAL HISTORY Hx Appendectomy: Yes Hx Carotid Endarterectomy: Yes Hx Cholecystectomy: Yes - ANESTHESIA Hx Anesthesia: Yes Hx Anesthesia Reactions: No Hx Malignant Hyperthermia: No Meds Allergies/Adverse Reactions: Allergies Allergy/AdvReac Type Severity Reaction Status Date / Time vancomycin AdvReac ITCHING Verified 09/09/17 04:39 - Medications Medications: Current Medications Amlodipine Besylate (Norvasc) 10 mg PO DAILY [facility] Last Admin: 09/13/17 09:16 Dose: 10 mg Clopidogrel Bisulfate (Plavix) 75 mg PO DAILY [facility] Last Admin: 09/13/17 09:17 Dose: 75 mg Dextrose (Dextrose 50% Inj) 0 ml IV STAT PRN; Protocol PRN Reason: Hypoglycemia Protocol Dextrose (Glutose 15) 0 gm PO ONCE PRN; Protocol PRN Reason: Hypoglycemia Protocol Divalproex Sodium (Depakote Dr(*Bid*)) 750 mg PO BID [facility] Last Admin: 09/13/17 09:13 Dose: 750 mg Duloxetine HCl (Cymbalta) 20 mg PO DAILY [facility] Last Admin: 09/13/17 09:14 Dose: 20 mg Enoxaparin Sodium (Lovenox) 40 mg SC DAILY [facility] PRN Reason: Protocol Last Admin: 09/13/17 09:16 Dose: 40 mg Glucagon (Glucagen Diagnostic Kit) 0 mg IM STAT PRN; Protocol PRN Reason: Hypoglycemia Protocol Ceftriaxone Sodium 2 gm/ (Sodium Chloride) 100 mls @ 100 mls/hr IVPB DAILY [facility] PRN Reason: Protocol Last Admin: 09/13/17 09:17 Dose: 100 mls/hr Azithromycin 500 mg/ Sodium (Chloride) 250 mls @ 250 mls/hr IVPB DAILY [facility] PRN Reason: Protocol Last Admin: 09/13/17 10:18 Dose: 250 mls/hr Ibuprofen (Motrin Tab) 600 mg PO Q6 PRN PRN Reason: Headache Last Admin: 09/10/17 18:53 Dose: 600 mg Insulin Detemir (Levemir) 20 units SC HS [facility] Last Admin: 09/12/17 22:14 Dose: 20 units Insulin Human Regular (Humulin R) 0 units SC ACHS [facility] PRN Reason: Protocol Last Admin: 09/13/17 12:18 Dose: 6 units Pravastatin Sodium (Pravachol) 40 mg PO HS [facility] Last Admin: 09/12/17 22:13 Dose: 40 mg Sitagliptin Phosphate (Januvia) 100 mg PO DAILY [facility] Last Admin: 09/13/17 09:15 Dose: 100 mg Results - Vital Signs Recent Vital Signs: Last Vital Signs Temp 97.5 F L 09/13/17 08:35 Pulse 65 09/13/17 09:16 Resp 20 09/13/17 08:35 BP 166/68 H 09/13/17 09:16 Pulse Ox 99 09/13/17 08:35 - Labs Result Diagrams: 09/11/17 05:00 09/11/17 05:00 Labs: Laboratory Results - last 24 hr 09/12/17 09/12/17 09/13/17 15:26 21:24 03:03 POC Glucose (mg/dL) 179 H 313 H 218 H 09/13/17 09/13/17 05:45 11:23 POC Glucose (mg/dL) 189 H 272 H
[2017-09-13 16:22] LABS: SQUAMOUS EPITHIAL < 1 /hpf (0-5); URINE BILIRUBIN NEGATIVE (NEGATIVE); URINE BLOOD SMALL (NEGATIVE); URINE CLARITY SLIGHTY-CLOUDY (Clear); URINE COLOR YELLOW (YELLOW); URINE GLUCOSE (UA) >=500 mg/dL (Normal); URINE LEUKOCYTE ESTERASE NEG Leu/uL (Negative); URINE NITRATE NEGATIVE (NEGATIVE); URINE PROTEIN 30 mg/dL (NEGATIVE); URINE UROBILINOGEN 0.2-1.0 mg/dL (0.2-1.0)
[2017-09-13] MEDS ORDERED: Insulin Detemir 100 Units/ml Inj SC SCH (21:29)
[2017-09-13] MEDS: Pravastatin Sodium 40 MG TAB PO SCH (22:34)
[2017-09-14 06:37] LABS: BASO % 0.6 % (0.0-2.0); EOS # 0.2 K/uL (0.0-0.7); EOS % 2.8 % (0.0-4.0); HEMOGLOBIN 12.3 g/dL (12.0-16.0); LYMPH # 1.5 K/uL (1.0-4.3); LYMPH % 24.6 % (20.0-40.0); MEAN CELL VOLUME 96.4 fl (81.0-99.0); MEAN CORPUSCULAR HEMOGLOBIN 32.8 pg (27.0-31.0); MEAN CORPUSCULAR HGB CONC 34.1 g/dL (33.0-37.0); MEAN PLATELET VOLUME 9.8 fl (7.2-11.7); MONO # 0.7 K/uL (0.0-0.8); MONO % 11.4 % (0.0-10.0); NEUT # 3.6 K/uL (1.8-7.0); NEUT % 60.6 % (50.0-75.0); NRBC % 0.7 % (0.0-0.0); RBC 3.75 Mil/uL (3.80-5.20); RED CELL DISTRIBUTION WIDTH 12.8 % (11.5-14.5)
[2017-09-14 06:52] LABS: BLOOD UREA NITROGEN 17 mg/dl (7-17); CALCIUM 9.3 mg/dL (8.4-10.2); GFR AFRICAN-AMERICAN > 60; GFR NON-AFRICAN AMERICAN > 60
--- NOTE | 2017-09-14 07:44 | CP.PCM.PN ---
Subjective - Date & Time of Evaluation Date of Evaluation: 09/14/17 Time of Evaluation: 07:42 - Subjective Subjective: Patient appears to be stable clinically No chest pain no shortness of breath Appetite normal No diarrhea Vital sign noted with slightly elevated blood pressure Objective - Vital Signs/Intake and Output Vital Signs (last 24 hours): Temp Pulse Resp BP Pulse Ox 98.0 F 65 18 152/78 H 95 09/13/17 23:50 09/13/17 23:50 09/13/17 23:50 09/13/17 23:50 09/13/17 23:50 - Medications Medications: Current Medications Amlodipine Besylate (Norvasc) 10 mg PO DAILY [facility] Last Admin: 09/13/17 09:16 Dose: 10 mg Clopidogrel Bisulfate (Plavix) 75 mg PO DAILY [facility] Last Admin: 09/13/17 09:17 Dose: 75 mg Dextrose (Dextrose 50% Inj) 0 ml IV STAT PRN; Protocol PRN Reason: Hypoglycemia Protocol Dextrose (Glutose 15) 0 gm PO ONCE PRN; Protocol PRN Reason: Hypoglycemia Protocol Divalproex Sodium (Depakote Dr(*Bid*)) 750 mg PO BID [facility] Last Admin: 09/13/17 17:08 Dose: 750 mg Duloxetine HCl (Cymbalta) 20 mg PO DAILY [facility] Last Admin: 09/13/17 09:14 Dose: 20 mg Enoxaparin Sodium (Lovenox) 40 mg SC DAILY [facility] PRN Reason: Protocol Last Admin: 09/13/17 09:16 Dose: 40 mg Glucagon (Glucagen Diagnostic Kit) 0 mg IM STAT PRN; Protocol PRN Reason: Hypoglycemia Protocol Azithromycin 500 mg/ Sodium (Chloride) 250 mls @ 250 mls/hr IVPB DAILY [facility] PRN Reason: Protocol Last Admin: 09/13/17 10:18 Dose: 250 mls/hr Ibuprofen (Motrin Tab) 600 mg PO Q6 PRN PRN Reason: Headache Last Admin: 09/14/17 05:19 Dose: 600 mg Insulin Detemir (Levemir) 25 units SC [facility] Last Admin: 09/13/17 22:37 Dose: 25 units Insulin Human Regular (Humulin R) 0 units SC ACHS [facility] PRN Reason: Protocol Last Admin: 09/13/17 22:00 Dose: Not Given Pravastatin Sodium (Pravachol) 40 mg PO [facility] Last Admin: 09/13/17 22:34 Dose: 40 mg Sitagliptin Phosphate (Januvia) 100 mg PO DAILY [facility] Last Admin: 09/13/17 09:15 Dose: 100 mg - Labs Labs: 09/14/17 05:15 09/14/17 05:15 PT 11.1 Seconds (9.8-13.1) 09/09/17 04:35 INR 1.0 (0.9-1.2) 09/09/17 04:35 APTT 30.1 Seconds (25.6-37.1) 09/09/17 04:35 - Constitutional Appears: No Acute Distress - ENT Exam ENT Exam: Mucous Membranes Moist - Neck Exam Neck Exam: absent: Lymphadenopathy - Respiratory Exam Respiratory Exam: NORMAL BREATHING PATTERN. absent: Chest Wall Tenderness - Cardiovascular Exam Cardiovascular Exam: REGULAR RHYTHM. absent: Gallop, JVD, Rubs - GI/Abdominal Exam GI & Abdominal Exam: Soft, Normal Bowel Sounds - Extremities Exam Extremities Exam: absent: Calf Tenderness - Back Exam Back Exam: absent: CVA tenderness (L), CVA tenderness (R) - Neurological Exam Neurological Exam: Alert - Psychiatric Exam Psychiatric exam: Normal Affect - Skin Skin Exam: absent: Cyanosis Assessment and Plan (1) TED (acute kidney injury) Assessment & Plan: #1 acute kidney injury Patient recover kidney function back to normal from overdosing and dehydration. #2 overdosing patient seen by psychiatry. #3 diabetes mellitus on medication #4 hypertension, blood pressure elevated patient is already on Norvasc we will add hydrochlorothiazide 12.5 mg #5 patient has bilateral renal artery stenosis as noted on the ultrasound. Patient told me she is scheduled to have surgery over the right carotid artery. Therefore regarding the bilateral renal artery stenosis patient needs arteriogram and to be discussed with the interventional radiologist for possible stenting? This to be done after fixing the right carotid artery. Also recommended not to give SHLOMO inhibitor or ARB because of bilateral renal artery stenosis . Status: Acute
[2017-09-14 08:05] VITALS: BP 171/68; PULSE 68; RESP 20; TEMP 97.8; O2SAT 98
[2017-09-14] MEDS: Divalproex 250 mg DR(BID formulation) PO SCH (08:45)
[2017-09-14] MEDS: Insulin Regular 100 units/ml SC SCH ×2 (08:48→11:30)
[2017-09-14] MEDS: Enoxaparin 40 mg Syringe SC SCH (08:49)
[2017-09-14] MEDS: Azithromycin 500 MG in Sodium Chloride 0.9% 250 ML IVPB SCH (08:55)
--- NOTE | 2017-09-14 14:37 | CP.PCM.DIS ---
Provider - Provider Date of Admission: 09/09/17 05:54 Attending physician: Joanna Milligan MD Consults: Endocrinology, Dr Kaiser Psychiatry, Dr Sidhu Time Spent in preparation of Discharge (in minutes): 30 Diagnosis - Discharge Diagnosis (1) TED (acute kidney injury) Status: Acute (2) Community acquired pneumonia Status: Acute (3) Depression Status: Acute (4) Overdose Status: Acute (5) Type 2 diabetes mellitus with hyperglycemia Status: Chronic Hospital Course - Lab Results Lab Results: Micro Results 09/09/17 04:10 Blood Blood Culture - Final NO GROWTH AFTER 5 DAYS 09/09/17 04:10 Blood Gram Stain - Final TEST NOT PERFORMED 09/09/17 04:40 Blood Blood Culture - Final NO GROWTH AFTER 5 DAYS 09/09/17 04:40 Blood Gram Stain - Final TEST NOT PERFORMED 09/10/17 08:03 Naris MRSA Culture (Admit) - Final MRSA NOT DETECTED 09/09/17 18:32 Naris MRSA Culture (Admit) - Final MRSA NOT DETECTED 09/09/17 08:45 Urine,Catheterized Urine Culture - Final Klebsiella Pneumoniae Ssp Pneu Most Recent Lab Values WBC 6.0 K/uL (4.8-10.8) D 09/14/17 05:15 RBC 3.75 Mil/uL (3.80-5.20) L 09/14/17 05:15 Hgb 12.3 g/dL (12.0-16.0) 09/14/17 05:15 Hct 36.2 % (34.0-47.0) 09/14/17 05:15 MCV 96.4 fl (81.0-99.0) 09/14/17 05:15 MCH 32.8 pg (27.0-31.0) H 09/14/17 05:15 MCHC 34.1 g/dL (33.0-37.0) 09/14/17 05:15 RDW 12.8 % (11.5-14.5) 09/14/17 05:15 Plt Count 181 K/uL (130-400) 09/14/17 05:15 MPV 9.8 fl (7.2-11.7) 09/14/17 05:15 Neut % (Auto) 60.6 % (50.0-75.0) 09/14/17 05:15 Lymph % (Auto) 24.6 % (20.0-40.0) 09/14/17 05:15 Petroleum % (Auto) 11.4 % (0.0-10.0) H 09/14/17 05:15 Eos % (Auto) 2.8 % (0.0-4.0) 09/14/17 05:15 Baso % (Auto) 0.6 % (0.0-2.0) 09/14/17 05:15 Neut # (Auto) 3.6 K/uL (1.8-7.0) 09/14/17 05:15 Lymph # (Auto) 1.5 K/uL (1.0-4.3) 09/14/17 05:15 Petroleum # (Auto) 0.7 K/uL (0.0-0.8) 09/14/17 05:15 Eos # (Auto) 0.2 K/uL (0.0-0.7) 09/14/17 05:15 Baso # (Auto) 0.0 K/uL (0.0-0.2) 09/14/17 05:15 Neutrophils % (Manual) 85 % (42-75) H 09/10/17 04:55 Lymphocytes % (Manual) 4 % (20-50) L 09/10/17 04:55 Monocytes % (Manual) 7 % (0-10) 09/10/17 04:55 Eosinophils % (Manual) 4 % (0-7) 09/10/17 04:55 Toxic Granulation Present 09/10/17 04:55 Platelet Estimate Slightly decreased (NORMAL) L 09/10/17 04:55 Large Platelets Present 09/10/17 04:55 Hypochromasia (manual) Slight 09/10/17 04:55 Basophilic Stippling Slight 09/10/17 04:55 PT 11.1 Seconds (9.8-13.1) 09/09/17 04:35 INR 1.0 (0.9-1.2) 09/09/17 04:35 APTT 30.1 Seconds (25.6-37.1) 09/09/17 04:35 pO2 54 mm/Hg (30-55) 09/09/17 04:14 VBG pH 7.26 (7.32-7.43) L 09/09/17 04:14 VBG pCO2 57 mmHg (40-60) 09/09/17 04:14 VBG HCO3 22.6 mmol/L 09/09/17 04:14 VBG Total CO2 27.3 mmol/L (22-28) 09/09/17 04:14 VBG O2 Sat (Calc) 87.0 % (40-65) H 09/09/17 04:14 VBG Base Excess -2.4 mmol/L (0.0-2.0) L 09/09/17 04:14 VBG Potassium 5.0 mmol/L (3.6-5.2) 09/09/17 04:14 Sodium 126.0 mmol/L (132-148) L 09/09/17 04:14 Chloride 94.0 mmol/L (98-107) L 09/09/17 04:14 Glucose 84 mg/dL (65-105) 09/09/17 04:14 Lactate 1.8 mmol/L (0.7-2.1) 09/09/17 04:14 FiO2 21.0 % 09/09/17 04:14 Sodium 138 mmol/l (132-148) 09/14/17 05:15 Potassium 4.4 MMOL/L (3.6-5.0) 09/14/17 05:15 Chloride 94 mmol/L (98-107) L 09/14/17 05:15 Carbon Dioxide 28 mmol/L (22-30) 09/14/17 05:15 Anion Gap 20 (10-20) 09/14/17 05:15 BUN 17 mg/dl (7-17) 09/14/17 05:15 Creatinine 0.6 mg/dl (0.7-1.2) L 09/14/17 05:15 Est GFR ( Amer) > 60 09/14/17 05:15 Est GFR (Non-Af Amer) > 60 09/14/17 05:15 POC Glucose (mg/dL) 218 mg/dL (65-110) H 09/14/17 11:30 Random Glucose 217 mg/dL (65-105) H 09/14/17 05:15 Calcium 9.3 mg/dL (8.4-10.2) 09/14/17 05:15 Phosphorus 9.1 mg/dl (2.5-4.5) H 09/09/17 04:35 Magnesium 2.3 MG/DL (1.6-2.3) 09/09/17 04:35 Total Bilirubin 0.7 mg/dl (0.2-1.3) 09/09/17 04:35 AST 65 U/L (14-36) H 09/09/17 04:35 ALT 49 U/L (9-52) 09/09/17 04:35 Alkaline Phosphatase 350 U/L (38-126) H 09/09/17 04:35 Total Creatine Kinase 471 U/L (30-135) H 09/09/17 12:00 Troponin I 0.0270 ng/mL (0.00-0.120) 09/09/17 04:35 NT-Pro-B Natriuret Pep 460 pg/ml (0-900) 09/09/17 04:35 Total Protein 8.5 G/DL (6.3-8.2) H 09/09/17 04:35 Albumin 3.7 g/dL (3.5-5.0) 09/09/17 04:35 Globulin 4.8 gm/dL (2.2-3.9) H 09/09/17 04:35 Albumin/Globulin Ratio 0.8 (1.0-2.1) L 09/09/17 04:35 Vitamin B12 576 pg/mL (239-931) 09/09/17 12:00 Folate 5.1 ng/mL 09/09/17 12:00 Procalcitonin 0.31 NG/ML (0.19-0.49) 09/09/17 12:00 TSH 3rd Generation 0.49 mIU/ML (0.46-4.68) 09/09/17 12:00 Venous Blood Potassium 5.0 mmol/L (3.6-5.2) 09/09/17 04:14 Urine Color Yellow (YELLOW) 09/13/17 15:52 Urine Clarity Slighty-cloudy (Clear) 09/13/17 15:52 Urine pH 6.0 (5.0-8.0) 09/13/17 15:52 Ur Specific [place] 1.022 (1.003-1.030) 09/13/17 15:52 Urine Protein 30 mg/dL (NEGATIVE) 09/13/17 15:52 Urine Glucose (UA) >=500 mg/dL (Normal) 09/13/17 15:52 Urine Ketones Negative mg/dL (NEGATIVE) 09/13/17 15:52 Urine Blood Small (NEGATIVE) 09/13/17 15:52 Urine Nitrate Negative (NEGATIVE) 09/13/17 15:52 Urine Bilirubin Negative (NEGATIVE) 09/13/17 15:52 Urine Urobilinogen 0.2-1.0 mg/dL (0.2-1.0) 09/13/17 15:52 Ur Leukocyte Esterase Neg Kari/uL (Negative) 09/13/17 15:52 Urine RBC (Auto) 10 /hpf (0-3) H 09/13/17 15:52 Urine Microscopic WBC 2 /hpf (0-5) 09/13/17 15:52 Ur Squamous Epith Cells < 1 /hpf (0-5) 09/13/17 15:52 Urine Bacteria Many (<OCC) H 09/09/17 08:45 Urine Eosinophils Negative (NEGATIVE) 09/09/17 18:30 Ur Random Sodium 62 mmol/L 09/09/17 18:30 Ur Random Potassium 25.5 mmol/L 09/09/17 18:30 Urine Chloride 43 mmol/L (32-290) 09/09/17 18:30 Salicylates < 1.0 mg/dl 09/09/17 12:47 Urine Opiates Screen Positive (NEGATIVE) H 09/09/17 08:45 Urine Methadone Screen Negative (NEGATIVE) 09/09/17 08:45 Acetaminophen < 10.0 ug/ml (10.0-30.0) L 09/09/17 12:00 Ur Barbiturates Screen Negative (NEGATIVE) 09/09/17 08:45 Ur Phencyclidine Scrn Negative (NEGATIVE) 09/09/17 08:45 Ur Amphetamines Screen Negative (NEGATIVE) 09/09/17 08:45 U Benzodiazepines Scrn Negative (NEGATIVE) 09/09/17 08:45 U Oth Cocaine Metabols Negative (NEGATIVE) 09/09/17 08:45 U Cannabinoids Screen Negative (NEGATIVE) 09/09/17 08:45 Alcohol, Quantitative < 10 mg/dl (0-10) 09/09/17 12:00 HIV 1&2 Antibody Screen Negative (NEGATIVE) 09/09/17 12:00 - Hospital Course Hospital Course: 57 y/o F with PMH including IDDM2, HTN, Carotid stenosis s/p endarterectomy, 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 During admission, patient improved with Narcan and IV fluid rehydration and renal function returned to WNL. Due to depressed mood and suspicion for intentional toxic opiate ingestion, psychiatry was consulted and patient has remained on 1:1 observation. [facility] determined patient was not a candidate for involuntary psychiatric admission since her mood improved and she denies intentional suicide attempt. She was started on Cymbalta 20mg daily. During admission, her BP medications were adjusted due to associated b/l renal artery stenosis.Her diabetic treatment medications were also adjusted to Levemir 25 units SC and Novolog 4units SC with meals. Patient to follow up with PCP to further titrate insulin regimen and obtain cardiology clearance for previously planned possible carotid procedure. Discharge Medications List Levemir 25units SC HS Novolog 4units SC ACTID Januvia 100mg PO daily Amlodipine 10mg PO daily HCT 25mg PO daily Clopidogrel 75mg PO daily Pravastatin 40mg PO HS Cymbalta 20mg PO daily Depakote 750mg PO BID Pantoprazole 40mg PO daily Magnesium Oxide 400mg PO HS Pain management medications Lyrica 100mg PO TID Percocet 10/325mg PO Q6h Discharge Exam - Head Exam Head Exam: ATRAUMATIC, NORMAL INSPECTION, NORMOCEPHALIC - Eye Exam Eye Exam: EOMI, PERRL - ENT Exam ENT Exam: Mucous Membranes Moist - Respiratory Exam Respiratory Exam: Clear to PA & Lateral, UNREMARKABLE. absent: Rhonchi, Wheezes , Respiratory Distress - Cardiovascular Exam Cardiovascular Exam: REGULAR RHYTHM, RRR, +S1, +S2 - GI/Abdominal Exam GI & Abdominal Exam: Normal Bowel Sounds, Soft. absent: Distended, Rebound, Tenderness - Extremities Exam Additional comments: Right BKA with well healed surgical scars. Left foot warm, capillary refill <2 seconds. No edema. - Neurological Exam Neurological exam: Alert, Oriented x3 - Psychiatric Exam Additional comments: Mood improved. Affect appropriate to situation. Denies suicidal ideation or thoughts of self-harm. - Skin Skin Exam: Dry, Warm Discharge Plan - Discharge Medications Prescriptions: amLODIPine [Norvasc] 10 mg PO DAILY #30 tab Clopidogrel [Plavix] 75 mg PO DAILY #30 tab DULoxetine [Cymbalta] 20 mg PO DAILY #30 ecc hydroCHLOROthiazide [Hydrodiuril] 25 mg PO DAILY #30 tab Insulin Aspart [Novolog] 4 unit SC AC #1 vial Insulin Detemir [Levemir] 25 units SC HS #1 syr Pravastatin Sodium [Pravachol] 40 mg PO HS #30 tab SITagliptin [Januvia] 100 mg PO DAILY #30 tab - Follow Up Plan Condition: GUARDED Disposition: HOME/ ROUTINE Instructions: Pneumonia, Adult (DC), Diabetes Type 2 (DC) Additional Instructions: follow up appointment at [facility] on September 17 at 3:20pm with Dr Rodriguez. Referrals: [facility] [place] [Outside] Calvin Murillo MD [Staff Provider] - Robert Fernandez MD [Staff Provider] -
--- NOTE | 2017-09-14 14:45 | CP.PCM.PCO ---
Assessment/Plan - Assessment and Plan (Free Text) Assessment: Spoke with Dr. Drake,psych-ok to discontinue 1:1. Ok to discharge home Spoke with pt agreeable to discharge. denies complaints.
== END 2017-09-14 16:05 | disposition home or self-care (01) | DRG 917 ==
LOC: H.ER 03:44 → H.ERHOLD 05:54 → H.ICU/CCU 14:41 → H.MEDSURG1 09-10 18:37
PROVIDERS: ADMIT Family Medicine Geriatric Medicine; ATTEND Family Medicine Geriatric Medicine
DX: T40.2X1A Poisoning by other opioids, accidental (unintentional), initial encounter (principal); J69.0 Pneumonitis due to inhalation of food and vomit; N17.9 Acute kidney failure, unspecified; F33.2 Major depressive disorder, recurrent severe without psychotic features; E11.51 Type 2 diabetes mellitus with diabetic peripheral angiopathy without gangrene; J98.11 Atelectasis; I11.0 Hypertensive heart disease with heart failure; I50.9 Heart failure, unspecified; E11.65 Type 2 diabetes mellitus with hyperglycemia; Z79.02 Long term (current) use of antithrombotics/antiplatelets; W19.XXXA Unspecified fall, initial encounter; Y92.009 Unspecified place in unspecified non-institutional (private) residence as the place of occurrence of the external cause; Z79.4 Long term (current) use of insulin; Z87.891 Personal history of nicotine dependence; E78.5 Hyperlipidemia, unspecified; Z89.511 Acquired absence of right leg below knee; Z90.49 Acquired absence of other specified parts of digestive tract; D64.9 Anemia, unspecified; F41.9 Anxiety disorder, unspecified; M19.90 Unspecified osteoarthritis, unspecified site; Z79.899 Other long term (current) drug therapy; E78.00 Pure hypercholesterolemia, unspecified; E83.39 Other disorders of phosphorus metabolism; E86.0 Dehydration; F06.30 Mood disorder due to known physiological condition, unspecified; G40.909 Epilepsy, unspecified, not intractable, without status epilepticus; G89.29 Other chronic pain; I70.1 Atherosclerosis of renal artery; J32.0 Chronic maxillary sinusitis; J45.909 Unspecified asthma, uncomplicated; K21.9 Gastro-esophageal reflux disease without esophagitis

== ENCOUNTER 2018-02-26 09:33 | Day surgery (SDC) | payer MEDICARE, OTHER ==
[2018-02-26 09:56] VITALS: BMI 28.8
[2018-02-26] MEDS ORDERED: Lactated Ringer's 1,000 ML IV ONE (10:15)
[2018-02-26] MEDS ORDERED: Propofol 10 mg/ml Inj (20 ML) ONE (11:04)
[2018-02-26] MEDS ORDERED: Midazolam 2 MG/2 ML VIAL ONE (11:04)
[2018-02-26] MEDS ORDERED: Lidocaine 2% MPF (5 ml) Inj INJ ONE (11:10)
[2018-02-26] MEDS ORDERED: Bupivacaine 0.25% Inj(30mL) IJ ONE (11:13)
[2018-02-26] MEDS ORDERED: methylPREDNISolone Depo 80 mg/ml Inj IM ONE (11:13)
[2018-02-26] MEDS ORDERED: Lactated Ringer's 1,000 ML IV SCH (11:45)
[2018-02-26 12:34] VITALS: O2SAT 96
[2018-02-26 13:17] VITALS: BP 126/61; PULSE 73; RESP 16; TEMP 98.7
--- NOTE | 2018-02-26 16:11 | RAD ---
Date of service: 02/26/2018 PROCEDURE: Fluoroscopy up to 1 hr. HISTORY: PAIN MANAGEMENT COMPARISON: None TECHNIQUE: Standard protocol for this study/examination. FINDINGS: Total fluoroscopic time (continuous mode) utilized during the procedure 25.1 (seconds). Total exam DLP: 1.70 (mGy) IMPRESSION: Submitted images from the current procedure: 2.0
--- NOTE | 2018-02-26 20:44 | OP ---
Copied To: Robert Fernandez MD Attending MD: Robert Fernandez MD PROCEDURE DATE: 02/26/2018 PREOPERATIVE DIAGNOSES: Left hip osteoarthritis and left knee osteoarthritis. PROCEDURES: Left knee genicular nerve block x3 and left greater trochanteric bursa injection. ANESTHESIOLOGIST: Chilo Lanier MD SURGEON: Robert Fernandez MD TYPE OF ANESTHESIA: Monitored anesthesia care. COMPLICATIONS: None. SPECIMEN: None. DESCRIPTION OF PROCEDURE: As follows: After we had discussion of the procedure with the patient including its risks, benefits, alternatives, outcome data, and possibility of no effect or increased pain, patient consented to the procedure. Decision was then made to proceed to the OR. Patient had been on Plavix for her various medical conditions. It was explained to her that the risks of bleeding does not outweigh the benefit of stopping the Plavix for this procedure and she is agreeable to proceed. Patient was placed on the fluoroscopy table in a supine position. Three pillows were placed underneath the left knee to elevate the thigh. The knee was prepped and draped in a usual sterile fashion and sterile technique was adhered during the entire procedure. The three genicular nerves are located at the border of the lateral and medial femoral condyles with the femur shaft and also the lateral tibial condyle and the tibial shaft. The skin overlying the three above target areas were then infiltrated with 1% lidocaine using 25-gauge needle. Subsequently, a 22-gauge 3-1/2-inch spinal needle was incrementally advanced under fluoroscopic guidance until tip of the needle made bony contact with the bony shaft. The needle was then walked slightly laterally and anteriorly. Lateral fluoroscopic view was obtained to make sure that the needles are at the midpoint of the bony shaft. After appropriate placement of all 3 needles, approximately 5 mL of 0.25% Marcaine and Depo-Medrol mixture was injected. The needle was then removed. Then, the left greater trochanteric bursa was palpated. The skin overlying this area was then infiltrated with 1% lidocaine using 25 gauge needle. Subsequently, a 22-gauge 3-1/2-inch spinal needle was then incrementally advanced under fluoroscopic guidance until the tip of the needle made bony contact with the target. This was confirmed on the fluoroscopy. After appropriate placement of the needle, approximately 5 mL of 0.25% Marcaine and Depo-Medrol mixture was injected. The needle was then removed and patient's left hip was cleaned and dry bandage was applied. Patient was then transferred to the recovery area in good condition without any signs of FOUNDATION COORDINATOR toxicity or any neurological deficit. She will be following in the office in approximately 2 to 4 weeks. En-Chano Fernandez MD
== END 2018-02-26 13:20 | disposition home or self-care (01) ==
LOC: H.OPSURG 09:33
PROVIDERS: ATTEND Anesthesiology
DX: M17.12 Unilateral primary osteoarthritis, left knee (principal); M16.12 Unilateral primary osteoarthritis, left hip; E11.9 Type 2 diabetes mellitus without complications; E78.5 Hyperlipidemia, unspecified; I10 Essential (primary) hypertension; G40.909 Epilepsy, unspecified, not intractable, without status epilepticus; F32.9 Major depressive disorder, single episode, unspecified; I73.9 Peripheral vascular disease, unspecified
CPT/HCPCS: 20610; 82948; J1040; J2250; J2704; J3010; J7120

== ENCOUNTER 2018-04-30 09:36 | Day surgery (SDC) | payer MEDICARE, OTHER ==
[2018-04-30 10:55] VITALS: RESP 18
[2018-04-30 11:05] VITALS: BMI 39.0
[2018-04-30] MEDS ORDERED: Lactated Ringer's 1,000 ML IV ONE (12:20)
[2018-04-30] MEDS ORDERED: Lidocaine 2% Inj (20ml) IJ ONE (12:30)
[2018-04-30] MEDS ORDERED: Iohexol 300 10 ML IJ ONE (12:32)
[2018-04-30] MEDS ORDERED: MethylPREDNISolone Depo 40 mg/ml Inj IM ONE (12:35)
[2018-04-30] MEDS ORDERED: Bupivacaine 0.25% Inj(30mL) IJ ONE (12:36)
[2018-04-30] MEDS ORDERED: HYDROmorphone 0.5 mg/0.5 ml ISec IVP PRN (12:49)
[2018-04-30 14:24] VITALS: TEMP 97.7
[2018-04-30 15:50] VITALS: BP 122/60; PULSE 67; O2SAT 96
--- NOTE | 2018-04-30 22:43 | OP ---
PROCEDURE DATE: 04/30/2018 PREOPERATIVE DIAGNOSIS: Left hip and left knee osteoarthritis. POSTOPERATIVE DIAGNOSIS: Left hip and left knee osteoarthritis. PROCEDURE: Left intraarticular injection of the left hip and also left knee genicular nerve block x3. ANESTHESIOLOGIST: Albert Wu MD SURGEON: Robert Fernandez MD TYPE OF ANESTHESIA: Monitored anesthesia care. COMPLICATIONS: None. SPECIMEN: None. DESCRIPTION OF PROCEDURE: After we had a discussion of the procedure with the patient including its risks, benefits, alternatives, outcome data and possibility of no effect or increased pain, the patient consented to the procedure. She denied any recent infection or bleeding tendencies. She was taken Plavix; however, the risks versus benefits of the procedure was considered, and it was decided that she should continue Plavix through the procedure. The patient was then transferred into the OR onto the fluoroscopy bed in a supine position. The left hip and left knee were prepped and draped in a usual sterile fashion, and a sterile technique was adhered to during the entire procedure. The left femoral pulse was first palpated. Care was taken to cross this imaginary line with a needle medially. The left femoral neck was first visualized on the anteroposterior view. The target is at the 2 o'clock position of the femoral neck. The skin approximately 5 cm lateral to this probe was then identified and infiltrated with 1% lidocaine. Then, a 22-gauge 5 inch spinal needle was incrementally advanced under fluoroscopic guidance into this area towards the target. After bony contact was made with a target, approximately 0.5 mL of Isovue contrast was injected showing appropriate spread around the joint capsule. At this point, approximately 5 mL of 0.25% Marcaine and Depo-Medrol mixture was injected. The needle was then removed. After insertion of the needle, there was no sign that the femoral vasculature was disturbed. The landmark for the genicular nerve block of the left knee was then identified. They are at the lateral, medial femoral condyle along with the medial tibial condyle. The skin overlying the three above targeted areas were then infiltrated with 1% lidocaine using 25-gauge needle. Subsequently, a 22-gauge 3-1/2 inch spinal needle was incrementally advanced under fluoroscopic guidance until tip of the needle made bony contact with all three targeted areas. After satisfactory positioning of all three needles, lateral fluoroscopy view was taken to make sure that the needles are at the midshaft. After doing so, approximately 4 mL of 0.25% Marcaine and Depo-Medrol mixture was injected. The needle was then removed. The patient's knee and hip were then cleaned and dried, and bandages were applied. The patient was then transferred to the recovery area in good condition without any signs of SENIOR PLANNING ANALYST toxicity or any neurological deficit. She will be followed in our office in approximately two to four weeks. En-Chano Fernandez MD
--- NOTE | 2018-05-03 14:25 | RAD ---
Date of service: 04/30/2018 PROCEDURE: Intraoperative Fluoroscopy. HISTORY: PAIN MANAGEMENT FINDINGS: Fluoroscopic assistance was provided for pain management. Total fluoroscopic time (continuous mode) utilized during the procedure 28.7 (seconds). . Please refer to the operative report from G[facility] Scott.
== END 2018-04-30 15:30 | disposition home or self-care (01) ==
LOC: H.OPSURG 09:36
PROVIDERS: ATTEND Anesthesiology
DX: M16.12 Unilateral primary osteoarthritis, left hip (principal); I11.0 Hypertensive heart disease with heart failure; I50.9 Heart failure, unspecified; E11.9 Type 2 diabetes mellitus without complications; G40.909 Epilepsy, unspecified, not intractable, without status epilepticus; F17.200 Nicotine dependence, unspecified, uncomplicated; M17.12 Unilateral primary osteoarthritis, left knee
CPT/HCPCS: 20610; 82948; J1030; J7120; Q9967

== ENCOUNTER 2018-06-04 03:48 | Emergency (ER) | payer MEDICARE, OTHER ==
[2018-06-04 03:48] VITALS: BMI 39.0
[2018-06-04] MEDS ORDERED: Sodium Chloride 0.9% 1,000 ML IV STA (04:25)
[2018-06-04] MEDS ORDERED: Phenylephrine 0.5% Nasal Spray NAS STA (04:32)
--- NOTE | 2018-06-04 04:38 | ED PDOC ---
HPI: Nose Bleed Time Seen by Provider: 06/04/18 04:09 Chief Complaint (Nursing): ENT Problem Chief Complaint (Provider): nosebleed History Per: Patient History/Exam Limitations: no limitations Onset/Duration Of Symptoms: Hrs (8) Current Symptoms Are (Timing): Intermittent Episodes Location Of Bleeding: Right Nare Symptoms Have Been: Episodic Associated Symptoms: Lightheadedness Anticoagulant/Antiplatlet Use?: Yes Additional Complaint(s): 57 y/o female brought in by EMS for evaluation of intermittent nose bleed x 8 hours. Patient reports clots, which she sometimes swallows and has to spit out. + lightheaded. Denies headache, dizziness, nasal congestion, cough, chest pain, shortness of breath, palpitations, abdominal pain. Patient is on Plavix Past Medical History Reviewed: Historical Data, Nursing Documentation, Vital Signs Vital Signs: Last Vital Signs Temp 98.1 F 06/04/18 03:58 Pulse 95 H 06/04/18 03:58 Resp 16 06/04/18 03:58 BP 128/74 06/04/18 03:58 Pulse Ox 96 06/04/18 03:58 - Medical History PMH: Anemia, Anxiety, Arthritis, Asthma, Back Problems, CHF, Depression, Diabetes (type II), GERD, HTN, Hypercholesterolemia, Seizures, Chronic Pain Denies: HIV, Chronic Kidney Disease, Sexually Transmitted Disease - Surgical History Surgical History: Appendectomy, Carotid Endarterectomy, Cholecystectomy, C- Section ( x 3) Denies: Pacemaker - Family History Family History: States: Unknown Family Hx - Living Arrangements Living Arrangements: With Family - Home Medications Home Medications: Ambulatory Orders Medication Instructions Recorded Pantoprazole [Protonix EC Tab] 40 mg PO DAILY #30 ect 04/13/17 Pregabalin [Lyrica] 100 mg PO TID #90 cap 04/13/17 Divalproex [Depakote DR] 750 mg PO BID 05/11/17 Magnesium Oxide [Mag-Ox] 400 mg PO HS 05/11/17 DULoxetine [Cymbalta] 20 mg PO DAILY #30 ecc 09/14/17 Insulin Detemir [Levemir] 25 units SC HS #1 syr 09/14/17 Pravastatin Sodium [Pravachol] 40 mg PO HS #30 tab 09/14/17 SITagliptin [Januvia] 100 mg PO DAILY #30 tab 09/14/17 amLODIPine [Norvasc] 10 mg PO DAILY #30 tab 09/14/17 hydroCHLOROthiazide [Hydrodiuril] 25 mg PO DAILY #30 tab 09/14/17 Insulin Aspart [Novolog] 4 - 15 unit SC AC 10/22/17 Oxycodone HCl/Acetaminophen 1 each PO Q6H PRN 10/22/17 [Percocet 10-325 mg Tablet] Clopidogrel [Plavix] 75 mg PO BID 02/24/18 Amoxicillin/Clavulanate [Augmentin 1 tab PO Q12 #13 tab 06/04/18 875 MG-125 MG] - Allergies Allergies/Adverse Reactions: Allergies Allergy/AdvReac Type Severity Reaction Status Date / Time vancomycin AdvReac ITCHING Verified 06/04/18 03:58 Review of Systems ROS Statement: Except As Marked, All Systems Reviewed And Found Negative ENT: Positive for: Nose Discharge Physical Exam - Reviewed Nursing Documentation Reviewed: Yes Vital Signs Reviewed: Yes - Physical Exam Appears: Positive for: Well, Non-toxic, No Acute Distress Head Exam: Positive for: ATRAUMATIC, NORMAL INSPECTION, NORMOCEPHALIC Skin: Positive for: Normal Color Eye Exam: Positive for: Normal appearance ENT: Positive for: TM Is/Are (clear bilaterally), Other (dried blood right nare; no active bleeding noted) Cardiovascular/Chest: Positive for: Regular Rate, Rhythm Respiratory: Positive for: Normal Breath Sounds Gastrointestinal/Abdominal: Positive for: Normal Exam Extremity: Positive for: Normal ROM Neurologic/Psych: Positive for: Alert, Oriented (x3) - Laboratory Results Result Diagrams: 06/04/18 04:30 06/04/18 04:30 - ECG O2 Sat by Pulse Oximetry: 96 - Progress ED Course And Treament: -accucheck -cbc -cmp -pt/ptt -IV fluids -neosynephrine spray On re-eval, active bleeding from right nare noted Rhino rocket placed Augmentin PO ordered On re-eval, no active bleeding noted Patient educated on findings, discharged with rx Augmentin Advised follow up ENT within 2-3 days Return precautions given Disposition - Clinical Impression Clinical Impression: Epistaxis - Patient ED Disposition Is Patient to be Admitted: No Counseled Patient/Family Regarding: Studies Performed, Diagnosis, Need For Followup, Rx Given - Disposition Referrals: Christiano Whiting MD [Staff Provider] - Disposition: Routine/Home Disposition Time: 05:40 Condition: IMPROVED Prescriptions: Amoxicillin/Clavulanate [Augmentin 875 MG-125 MG] 1 tab PO Q12 #13 tab Instructions: Nosebleeds Forms: [facility] (Luxembourgish)
[2018-06-04] MEDS ORDERED: Phenylephrine 0.5% Nasal Spray NAS ONE (04:42)
[2018-06-04 04:44] LABS: BASO % 0.7 % (0.0-2.0); EOS # 0.1 K/uL (0.0-0.7); EOS % 2.1 % (0.0-4.0); HEMOGLOBIN 12.7 g/dL (12.0-16.0); LYMPH # 1.2 K/uL (1.0-4.3); LYMPH % 18.3 % (20.0-40.0); MEAN CELL VOLUME 99.2 fl (81.0-99.0); MEAN CORPUSCULAR HEMOGLOBIN 33.4 pg (27.0-31.0); MEAN CORPUSCULAR HGB CONC 33.7 g/dL (33.0-37.0); MEAN PLATELET VOLUME 10.8 fl (7.2-11.7); MONO # 0.7 K/uL (0.0-0.8); MONO % 11.2 % (0.0-10.0); NEUT # 4.5 K/uL (1.8-7.0); NEUT % 67.7 % (50.0-75.0); RBC 3.81 Mil/uL (3.80-5.20); RED CELL DISTRIBUTION WIDTH 13.6 % (11.5-14.5); WHITE BLOOD COUNT 6.6 K/uL (4.8-10.8)
[2018-06-04 04:51] LABS: PROTHROMBIN TIME 11.5 Seconds (9.8-13.1)
[2018-06-04 04:54] LABS: PARTIAL THROMBOPLASTIN TIME 37.8 Seconds (25.6-37.1)
[2018-06-04 04:56] LABS: ALB/GLOB RATIO 0.9 (1.0-2.1); ALBUMIN 3.9 g/dL (3.5-5.0); ALT/SGPT 47 U/L (9-52); AST/SGOT 52 U/L (14-36); BLOOD UREA NITROGEN 26 mg/dl (7-17); CALCIUM 8.9 mg/dL (8.4-10.2); GFR NON-AFRICAN AMERICAN 51
[2018-06-04] MEDS ORDERED: Amoxicillin-Clav 875-125 mg Tab PO STA (05:29)
[2018-06-04] MEDS ORDERED: Amoxicillin-Clav 875-125 mg Tab PO ONE (05:43)
[2018-06-04 06:10] VITALS: TEMP 98.3
[2018-06-04 15:50] VITALS: BP 143/63; PULSE 71; RESP 18; O2SAT 97
== END 2018-06-04 15:45 | disposition home or self-care (01) ==
LOC: H.ER 03:48
DX: R04.0 Epistaxis (principal); G89.29 Other chronic pain; I11.0 Hypertensive heart disease with heart failure; J45.909 Unspecified asthma, uncomplicated; Z79.4 Long term (current) use of insulin; Z88.1 Allergy status to other antibiotic agents; E11.9 Type 2 diabetes mellitus without complications
CPT/HCPCS: 80053; 82948; 85025; 85610; 85730; 99284; J7040

== ENCOUNTER 2018-08-13 07:58 | Day surgery (SDC) | payer MEDICARE, OTHER ==
--- NOTE | 2018-08-13 08:37 | CP.SDSHP ---
Same Day Surgery H & P - History Proposed Procedure: Lumbar transforaminal epidural steroid injection Pre-Op Diagnosis: Lumbar radiculopathy - Previous Medical/Surgical History Cardiac: Hypertension, ASHD/CAD - Allergies Allergies: Allergies vancomycin Adverse Reaction (Verified 06/04/18 03:58) ITCHING - Physical Exam Neuro: WNL Heart: WNL Lungs: WNL - Impression Impression: Lumbar radiculopathy Pt. Evaluated Today:Candidate for Anesthesia & Procedure: Yes Short Stay Discharge - Short Stay Discharge Admitting Diagnosis/Reason for Visit: M54.16 Disposition: HOME/ ROUTINE
[2018-08-13 08:57] VITALS: BMI 30.7
[2018-08-13] MEDS ORDERED: Dextrose 50% SYRINGE Inj (50 ml) IVP ONE (08:58)
[2018-08-13] MEDS ORDERED: Lactated Ringer's 1,000 ML IV ONE (09:00)
[2018-08-13] MEDS ORDERED: Midazolam 2 MG/2 ML VIAL ONE (09:37)
[2018-08-13] MEDS ORDERED: Propofol 10 mg/ml Inj (20 ML) ONE (09:37)
[2018-08-13] MEDS ORDERED: Lidocaine 1% 5ml Abboject ONE (09:37)
[2018-08-13] MEDS ORDERED: Sodium Chloride 0.9% 1,000 ML IV ONE (09:49)
[2018-08-13] MEDS ORDERED: Lidocaine 1% Inj (20ml) ONE (10:00)
[2018-08-13] MEDS ORDERED: Bupivacaine HCl 0.25% PF (30 ml) Inj ONE (10:00)
[2018-08-13] MEDS ORDERED: Sodium Chloride 0.9% 1,000 ML IV SCH ×2 (10:00→10:30)
[2018-08-13] MEDS ORDERED: methylPREDNISolone Depo 80 mg/ml Inj ONE (10:00)
[2018-08-13] MEDS ORDERED: Iohexol 300 10 ML IJ ONE (10:01)
[2018-08-13] MEDS ORDERED: Bupivacaine HCl 0.25% PF (30 ml) Inj IJ ONE (10:01)
[2018-08-13] MEDS ORDERED: methylPREDNISolone Depo 80 mg/ml Inj IM ONE (10:01)
[2018-08-13] MEDS ORDERED: Lidocaine 1% Inj (20ml) IJ ONE (10:01)
[2018-08-13] MEDS ORDERED: HYDROmorphone 0.5 mg/0.5 ml ISec IVP PRN (10:19)
[2018-08-13 10:42] VITALS: RESP 18; O2SAT 100
--- NOTE | 2018-08-13 10:43 | RAD ---
Date of service: 08/13/2018 PROCEDURE: Intraoperative Fluoroscopy. HISTORY: PAIN MANAGEMENT FINDINGS: Fluoroscopic assistance was provided. Fluoroscopy time = 19.7 sec radiation dose = 5.26 mGy. Please refer to the operative report from [facility] Scott.
--- NOTE | 2018-08-13 12:03 | OP ---
PROCEDURE DATE: 08/13/2018 PREOPERATIVE DIAGNOSIS: Lumbar radiculopathy. POSTOPERATIVE DIAGNOSIS: Lumbar radiculopathy. PROCEDURE: Left L4-L5 and L5-S1 transforaminal epidural steroid injection. ANESTHESIOLOGIST: Gerhard Ramirez MD SURGEON: Robert Fernandez MD TYPE OF ANESTHESIA: Monitored anesthesia care. COMPLICATIONS: None. SPECIMENS: None. DESCRIPTION OF PROCEDURE: As follows: After we had discussion of the procedure with the patient including its risks, benefits, alternatives, outcome data, possibility of no effect or increased pain, the patient consented to the procedure. She denies any recent infection, bleeding tendencies, or being on anticoagulants. A decision was then made to proceed to the OR. The patient was placed on a fluoroscopy table in a prone position with two pillows underneath her abdomen. The back was prepped and draped in a usual sterile fashion and a sterile technique was adhered to during the entire procedure. The L4 and L5 vertebral levels were first identified on the anterior-posterior view. Angulation towards the left at approximately 20 degrees was used to maximize the visualization of the L4 and L5 pedicles. The skin overlying the 6 o'clock position of the pedicles was then infiltrated with 1% lidocaine using 25-gauge needle. Subsequently, a 22-gauge 5-inch spinal needle was incrementally advanced under fluoroscopic guidance until tip of the needle walked into the intervertebral foramen. After satisfactory position of both needles, approximately 0.5% Isovue contrast was injected showing appropriate epidural and nerve root spread without any signs of CSF or intravenous involvement. At this point, approximately 3 mL of 0.25% Marcaine and Depo-Medrol mixture was injected. At the end of the procedure, the needle was removed and the patient's back was cleaned and dry bandage was applied. The patient was then transferred to the recovery area in good condition without any signs of CHIEF CARDIOPULMONARY TECHNOLOGIST toxicity or any neurological deficit. There are not signs of neuro deficits. The patient has stopped Plavix two weeks prior to today's injection. She has been instructed to resume tomorrow. Robert Fernandez MD
[2018-08-13 12:52] VITALS: PULSE 64
[2018-08-13 13:57] VITALS: BP 122/76; TEMP 97.4
== END 2018-08-13 14:15 | disposition home or self-care (01) ==
LOC: H.OPSURG 07:58
PROVIDERS: ATTEND Anesthesiology
DX: M54.16 Radiculopathy, lumbar region (principal); M19.90 Unspecified osteoarthritis, unspecified site; J45.909 Unspecified asthma, uncomplicated; E78.5 Hyperlipidemia, unspecified; I11.0 Hypertensive heart disease with heart failure; I50.9 Heart failure, unspecified; G40.909 Epilepsy, unspecified, not intractable, without status epilepticus; K21.9 Gastro-esophageal reflux disease without esophagitis; E11.51 Type 2 diabetes mellitus with diabetic peripheral angiopathy without gangrene; D64.9 Anemia, unspecified; R45.851 Suicidal ideations
CPT/HCPCS: 64483; 64484; 82948; J1040; J2250; J2704; J2765; J3010; J7030; J7120; Q9967

== ENCOUNTER 2018-12-15 10:48 | Day surgery (SDC) | payer MEDICARE, OTHER ==
--- NOTE | 2018-12-15 11:33 | CP.SDSHP ---
Same Day Surgery H & P - History Proposed Procedure: Left lumbar sympathetic block Pre-Op Diagnosis: Left leg CRPS - Previous Medical/Surgical History Cardiac: Hypertension, ASHD/CAD Pulmonary: Bronchitis Endocrine/Metabolic: Diabetes Neuro: TIA/CVA Pain: 8.Very Severe - Allergies Allergies: Allergies vancomycin Adverse Reaction (Verified 12/15/18 11:17) ITCHING - Physical Exam Vital Signs: Vital Signs 12/15/18 11:20 Pulse Rate 65 Mental Status: Alert & Oriented x3 Neuro: WNL Heart: WNL Lungs: WNL GI: WNL - Impression Impression: Left leg CRPS Pt. Evaluated Today:Candidate for Anesthesia & Procedure: Yes Short Stay Discharge - Short Stay Discharge Admitting Diagnosis/Reason for Visit: G90.522 Disposition: HOME/ ROUTINE Referrals: Neli Mast MD [Primary Care Provider] -
[2018-12-15 11:57] VITALS: BMI 28.1
[2018-12-15] MEDS ORDERED: Dextrose 50% SYRINGE Inj (50 ml) IVP ONE (11:58)
[2018-12-15] MEDS ORDERED: Dextrose 50% SYRINGE Inj (50 ml) IV ONE (12:18)
[2018-12-15] MEDS ORDERED: Dextrose 5%/0.45% NS 1,000 ML IV ONE (12:56)
[2018-12-15] MEDS ORDERED: Lactated Ringer's 1,000 ML IV ONE (12:56)
[2018-12-15] MEDS ORDERED: Sodium Chloride 0.45% 1,000 ML IV ONE (12:56)
[2018-12-15] MEDS ORDERED: Dextrose 5%/0.9% NS 1,000 ML IV ONE (12:56)
[2018-12-15] MEDS ORDERED: Iohexol 300 10 ML IJ ONE ×2 (12:59→13:09)
[2018-12-15] MEDS: Bupivacaine HCl 0.25% PF (30 ml) Inj ONE ×2 (13:01→13:10)
[2018-12-15] MEDS ORDERED: Lidocaine 1% Inj (20ml) IJ ONE ×2 (13:02→13:11)
[2018-12-15] MEDS: Dexamethasone 4 mg/1 ml ONE ×2 (13:02→13:11)
[2018-12-15] MEDS ORDERED: Lactated Ringer's 500 ML IV SCH (13:30)
--- NOTE | 2018-12-15 14:00 | RAD ---
Date of service: 12/15/2018 PROCEDURE: Intraoperative Fluoroscopy. HISTORY: PAIN MANAGEMENT FINDINGS: Fluoroscopic assistance was provided. Fluoroscopy time = 83.3 sec. Radiation dose = 40.32 mGy. Please refer to the operative report from GORDON Scott.
[2018-12-15 14:06] LABS: HEMOGLOBIN 11.3 g/dL (12.0-16.0); MEAN CELL VOLUME 100.4 fl (81.0-99.0); MEAN CORPUSCULAR HEMOGLOBIN 34.4 pg (27.0-31.0); MEAN CORPUSCULAR HGB CONC 34.3 g/dL (33.0-37.0); RBC 3.28 Mil/uL (3.80-5.20); RED CELL DISTRIBUTION WIDTH 14.6 % (11.5-14.5); WHITE BLOOD COUNT 6.6 K/uL (4.8-10.8)
[2018-12-15 14:09] LABS: BLOOD UREA NITROGEN 16 mg/dl (7-17); CALCIUM 8.7 mg/dL (8.4-10.2); GFR NON-AFRICAN AMERICAN > 60
[2018-12-15 15:14] VITALS: RESP 16
[2018-12-15 15:53] VITALS: BP 137/67; PULSE 65; TEMP 98.1; O2SAT 96
--- NOTE | 2018-12-15 23:19 | OP ---
PROCEDURE DATE: 12/15/2018 PREOPERATIVE DIAGNOSIS: Left leg complex regional pain syndrome. POSTOPERATIVE DIAGNOSIS: Left leg complex regional pain syndrome. PROCEDURE: Left lumbar sympathetic block. ANESTHESIOLOGIST: Barrett Morataya DO SURGEON: Robert Fernandez MD TYPE OF ANESTHESIA: Moderate anesthesia care. COMPLICATIONS: None. SPECIMEN: None. DESCRIPTION OF PROCEDURE: Procedure is as follows. After we had a discussion of the procedure with the patient including its risks, benefits, alternatives, outcome data and possibility of no effect or increased pain, the patient consented to the procedure. She denied any recent infection, bleeding tendencies, or being on anticoagulants. A decision was then made to proceed to the OR. She had stopped Plavix approximately 10 days prior. The patient was then placed on a fluoroscopy table in a prone position with two pillows underneath her abdomen. The back was prepped and draped in the usual sterile fashion. A sterile technique was adhered to during the entire procedure. The L2 and L3 vertebral levels were first identified in the anteroposterior view. The needle was inserted at the lateral border of the corresponding vertebrae above the transverse process. The safety triangle was identified by turning the fluoroscopy towards the left for approximately 12 degrees. The skin overlying the area was then infiltrated with 1% lidocaine using 25-gauge needle. Subsequently, a 22-gauge 7-inch spinal needle was incrementally advanced under fluoroscopic guidance until the tip of the needle made bony contact with the lateral vertebral body in the oblique view. At this point, the fluoroscopy was turned to the anteroposterior orientation, showing the tip of the needle to be at the lateral vertebral body. The fluoroscopy was then turned towards the lateral orientation. Then, the needle was guided slightly medially and anteriorly until the tip of the needle was at approximately 1 cm inserted to the anterior border of the vertebral body. Then, an anteroposterior view was obtained, showing both needles to be at the lateral border of the pedicles on the left side. After appropriate placement of both needles, approximately 1 mL of Omnipaque contrast was injected. At the level of L2, there was appropriate spread of the contrast material. However at the level of L3 even after adjusting the needle by further inserting it at approximately 1 cm, appropriate contrast spread was not able to be obtained. The decision was made to abort at this level. At this point after doing epidural intravenous or other organ placement of the needle, approximately 15 mL of a 0.25% Marcaine and Decadron mixture was gradually injected into the needle at L2 at 5 mL intervals. The patient tolerated the procedure well. At the end of the case, the needle was removed. The patient's back was cleaned, and dry bandage was applied. The patient was then transferred to recovery area in good condition without any signs of [employer] toxicity or any neurological deficit. She will follow in our office in approximately two to four weeks. En-Chano Fernandez MD
== END 2018-12-15 16:50 | disposition home or self-care (01) ==
LOC: H.OPSURG 10:48
PROVIDERS: ATTEND Anesthesiology
DX: G90.522 Complex regional pain syndrome I of left lower limb (principal); E11.9 Type 2 diabetes mellitus without complications; I10 Essential (primary) hypertension; I25.10 Atherosclerotic heart disease of native coronary artery without angina pectoris; Z86.73 Personal history of transient ischemic attack (TIA), and cerebral infarction without residual deficits; Z79.4 Long term (current) use of insulin
CPT/HCPCS: 36415; 64520; 77003; 80048; 82948; 85027; J1100; J2405; J3010; J7042; J7120; Q9967